=== PATIENT | male | born 1940 | race Caucasian/White ===

== ENCOUNTER 2023-02-11 09:22 | Outpatient (OUT) | payer MEDICARE, SELFPAY ==
[2023-02-11 09:55] LABS: Hematocrit 39.8 % (42.0-54.0); Hemoglobin 12.9 g/dL (14.0-18.0)
[2023-02-11 09:59] LABS: Protein Creatinine Ratio Urine 0.19; Total Protein Urine Random 9.1 mg/dL (<=11.9)
[2023-02-11 10:00] LABS: Bilirubin Urine NEGATIVE (NEGATIVE); Blood Urine NEGATIVE (NEGATIVE); Clarity Urine CLEAR (CLEAR); Color Urine YELLOW (YELLOW); Glucose Urine UA NEGATIVE (NEGATIVE); Ketones Urine NEGATIVE (NEGATIVE); Leukocyte Esterase Urine NEGATIVE (NEGATIVE); Nitrite Urine NEGATIVE (NEGATIVE); Protein Urine NEGATIVE (NEG/TRACE)
[2023-02-11 10:27] LABS: Alanine Aminotransferase 28 U/L (16-63); Albumin Globulin Ratio 1.2; Albumin Level 3.8 g/dL (3.4-5.0); Alkaline Phosphatase 85 U/L (46-116); Anion Gap 13.7; Aspartate Amino Transferase 21 U/L (15-37); BUN Creatinine Ratio 9.8; Bilirubin Total 0.8 mg/dL (0.2-1.0); Calcium 8.1 mg/dL (8.5-10.1); Carbon Dioxide 27.3 mmol/L (21.0-32.0); Chloride 102 mmol/L (98-107); Estimated GFR (African America 24 (>=60); Estimated GFR (Non-African Ame 20 (>=60); Globulin 3.1 g/dL; Glucose 84 mg/dL (74-106); Magnesium 2.1 mg/dL (1.8-2.4); Sodium 139 mmol/L (136-145); Total Protein 6.9 g/dL (6.4-8.2); Uric Acid 7.6 mg/dL (3.5-7.2)
[2023-02-11 10:40] LABS: Percent Iron Saturation 35.9 %
[2023-02-12 13:09] LABS: PTH, Intact 102 pg/mL (15-65)
== END 2023-02-11 09:23 | disposition home or self-care (01) ==
LOC: LAB 09:28
PROVIDERS: PCP Internal Medicine; Visit Provider Internal Medicine Nephrology
DX: E11.22 Type 2 diabetes mellitus with diabetic chronic kidney disease (principal); I13.0 Hypertensive heart and chronic kidney disease with heart failure and stage 1 through stage 4 chronic kidney disease, or unspecified chronic kidney disease; N18.9 Chronic kidney disease, unspecified; I50.9 Heart failure, unspecified; N18.4 Chronic kidney disease, stage 4 (severe); D63.1 Anemia in chronic kidney disease
CPT/HCPCS: 36415; 80053; 81003; 82306; 82570; 82607; 82728; 82746; 83540; 83550; 83735; 83970; 84156; 84550; 85014; 85018

== ENCOUNTER 2024-02-03 15:12 | Emergency (ER) | payer MEDICARE, SELFPAY ==
[2024-02-03] VITALS (21 sets, daily range): BP systolic 164–166; BP diastolic 64–68; PULSE 62–70; TEMP 36.8; O2SAT 85–97; BMI 27.2
--- NOTE | 2024-02-03 15:19 | XR_ITS ---
The [address] [address] Patient Name: Apolinar MELTON MRN: [id number] date: 1940 Sex: M Assigned Patient Location: ED.MAIN Current Patient Location: ED.MAIN Accession/Order Number: [id number] Exam Date: 02/03/2024 15:28 Report Date: 02/03/2024 16:05 At the request of: ZULEYMA CHAIDEZ Procedure: XR hip LT 2V w/ pelvis PROCEDURE: XR hip LT 2V w/ pelvis HISTORY: fall with hip pain and external rotation COMPARISON: None. FINDINGS: BONES:Acute fracture of left femoral neck likely at the base the neck, but obscured due to slight rotation of the femur causing the greater trochanter to overlie the base of the femoral neck. Femoral head remains seated within the acetabulum. Moderate degenerative changes of the hip joints bilaterally. SOFT TISSUES:No visible soft tissue swelling. EFFUSION:None visible. OTHER: Marked atherosclerotic disease. XR/XR hip LT 2V w/ pelvis IMPRESSION: 1. Acute, minimally displaced and slightly rotated base of femoral neck fracture. Electronically authenticated by: MAXWELL MORA Date: 02/03/2024 16:05
--- NOTE | 2024-02-03 15:30 | XR_ITS ---
The [address] [address] Patient Name: Apolinar MELTON MRN: [id number] date: 1940 Sex: M Assigned Patient Location: ER Current Patient Location: ED.MAIN Accession/Order Number: [id number] Exam Date: 02/03/2024 15:28 Report Date: 02/03/2024 16:05 At the request of: ALVINA AMEZQUITA Procedure: XR chest 1V EXAMINATION: XR chest 1V HISTORY: preop COMPARISON: No relevant comparison available. FINDINGS: LUNGS: No significant pulmonary parenchymal abnormalities. VASCULATURE: No increased pulmonary vasculature. PLEURA: No pneumothorax, effusion, or pleural thickening. CARDIAC: No cardiomegaly or cardiac silhouette abnormality. MEDIASTINUM: No visible mass or adenopathy. BONES: No fracture or visible bone lesion. OTHER: Negative. XR/XR chest 1V IMPRESSION: Electronically authenticated by: MAXWELL MORA Date: 02/03/2024 16:05
--- NOTE | 2024-02-03 15:31 | ECG_ITS ---
The [facility] Test Date: 2024-02-03 Pat Name: Apolinar MELTON Department: Room: - Gender: Male [employer]: : 1940 Requested By: HONEY MANCUSO Order Number: [id number] Reading MD: PEDRO HOBBS Measurements Intervals [place] Rate: 65 P: -21950 MA: -60396 QRS: 98 QRSD: 128 T: 67 QT: 470 QTc: 482 Interpretive Statements 24357 Atrial fibrillation with aberrant conduction, or ventricular premature complexes 3434 Septal myocardial infarction, age undetermined 7300 Indeterminate axis 9150 abnormal ECG No previous ECG available for comparison Electronically Signed On 02-04-2024 13:34:33 EDT by PEDRO HOBBS
--- NOTE | 2024-02-03 15:59 | ED.FALL1 ---
HPI HPI - Fall General Chief Complaint: Fall Stated Complaint: fell Time Seen by Provider: 02/03/24 15:17 Source: patient Mode of arrival: ambulance Limitations: no limitations History of Present Illness HPI Narrative: Your 84-year-old male presents to the emergency department via EMS with a chief complaint of left hip pain. Patient states he spun around too quickly, lost his balance, and fell, causing injury. He complains of pain, but only when he moves it. Denies hitting his head. Denies neck, back, chest abdominal pain. Denies upper extremity injury. Patient is on Plavix. History of coronary artery disease, peripheral vascular disease, chronic kidney disease. He has dialysis port, but has not started dialysis yet. He does have a pacemaker as well. Quality:?Blunt trauma Severity:?Severe Timing:?Injury occurred shortly prior to arrival, constant Context: Normal setting and activity? Modifying factors:?Pain worse with palpation, movement Associated symptoms: None Related Data Home Medications ?Medication ?Instructions ?Recorded ?Confirmed albuterol 90 mcg/actuation aerosol 90 mcg inhalation .Q4HR PRN 02/03/24 02/03/24 inhaler shortness of breath or wheezing amiodarone 200 mg tablet 200 mg PO DAILY 02/03/24 02/03/24 ascorbic acid (vitamin C) (Vitamin 1 g PO DAILY 02/03/24 02/03/24 C oral powder) aspirin 81 mg capsule 81 mg PO DAILY 02/03/24 02/03/24 atorvastatin 80 mg tablet 80 mg PO DAILY 02/03/24 02/03/24 cholecalciferol (vitamin D3) 25 25 mcg PO DAILY 02/03/24 02/03/24 mcg (1,000 unit) capsule clopidogrel 75 mg tablet 75 mg PO DAILY 02/03/24 02/03/24 furosemide 80 mg tablet (Lasix) 80 mg PO BID 02/03/24 02/03/24 glyburide 1.25 mg tablet 1.25 mg PO DAILY 02/03/24 02/03/24 levothyroxine 100 mcg tablet 100 mcg PO DAILY 02/03/24 02/03/24 metoprolol succinate 50 mg 50 mg PO DAILY 02/03/24 02/03/24 tablet,extended release 24 hr nitroglycerin 0.4 mg sublingual 0.4 mg sublingual Q5M 02/03/24 02/03/24 tablet omeprazole 40 mg capsule,delayed 40 mg PO DAILY 02/03/24 02/03/24 release Allergies Allergy/AdvReac Type Severity Reaction Status Date / Time Penicillins Allergy Intermediate Rash Verified 02/03/24 15:15 Opioid HPI Opioid Management Most Recent Pain and Opioid Data: Last Pain Scale 9 02/03/24 17:21 Last ED Pain Assessment 02/03/24 16:27 Last MAR Pain Assessment 02/03/24 17:21 Review of Systems ROS Constitutional Denies: fatigue or malaise Eyes Denies: change in vision or eye discomfort Ears, nose, mouth, and throat Denies: neck pain or vertigo Cardiovascular Denies: chest pain or palpitations Respiratory Denies: shortness of breath Gastrointestinal Denies: abdominal pain Musculoskeletal Reports: extremity pain, joint pain and limited range of motion; Denies: back pain or neck pain Integumentary/Breast Denies: other (wound) Neurological Denies: headache, weakness in extremities, dizziness, vertigo or confusion Endocrine Denies: fatigue Hematologic/Lymphatic Reports: other (Patient on plavix) PFSH PENDING SALE TO [facility] Medical History (Updated 02/03/24 @ 16:49 by KEDAR Mendes) History of cardiac pacemaker ?Z95.0 - Presence of cardiac pacemaker (ICD-10) Surgical History (Updated 02/03/24 @ 15:57 by Joseluis Savage) Hx of heart bypass surgery ?Z95.1 - Presence of aortocoronary bypass graft (ICD-10) Exam Constitutional Vital Signs, click to edit/add: Last Vital Signs Temp 98.2 F 02/03/24 15:15 Pulse 62 02/03/24 15:15 Resp 15 02/03/24 15:15 BP 164/64 H 02/03/24 15:15 Pulse Ox 96 02/03/24 15:15 O2 Del Method Room Air 02/03/24 15:15 Documenting provider has reviewed patient's vital signs: yes Common normals: no apparent distress and oriented x3 General appearance: cooperative and well developed; not ill appearing [facility] Common normals: normocephalic, head/scalp atraumatic, external ears normal and external nose normal Head and scalp: normocephalic and atraumatic Face and sinus: normal facial exam Nose: external nose normal External ear: external ears normal Mouth: no mouth trauma Throat: posterior oropharynx normal Eye Common normals: PERRL and conjunctivae normal General eye: normal appearance of both eyes Alignment: alignment normal Periorbital: periorbital findings normal Eyelid: eyelids normal Conjunctiva: conjunctiva(e) normal Pupil: PERRL Neck & C-Spine General: trachea midline; no tenderness Cervical spine: no cervical spine tenderness, no step off deformity and no paracervical muscle tenderness Chest Chest: symmetrical chest wall rise; inspection of the chest normal and no tenderness Respiratory Common normals: normal respiratory effort and clear to auscultation bilaterally Effort & inspection: able to speak in complete sentences and symmetric chest movement Auscultation: clear to auscultation bilaterally Cardio Common normals: regular rate and regular rhythm Rate: regular rate Rhythm: abnormal rhythm irregularly irregular Heart sounds: no murmurs Peripheral pulses: radial pulses present bilateral 2+ and dorsalis pedis pulses present bilateral 2+ GI Common normals: soft to palpation Inspection: normal to inspection; no abdominal distension Palpation: soft; non-tender Back & Pelvis Thoracic spine/upper back: normal to inspection; no thoracic spinal tenderness and no paraspinal muscle tenderness Lumbar spine/lower back: normal to inspection; no lumbar spinal tenderness and no paraspinal muscle tenderness Extremity General: normal exam except as noted Other: Left lower extremity: There is notable shortening and some mild rotation of the left leg. He has tenderness and pain with event in his hip. No tenderness noted throughout the remainder of the leg. Sensory intact. Neuro Common normals: oriented x3, moves all extremities, no focal motor deficits and no sensory deficits noted Speech: speech normal Psych Common normals: mental status grossly normal, thought process normal and cooperative Thought process: normal thought process Course Consultations Consultation #1: Patient was discussed with Dr. Burk at [facility]'s who is agreeable with being on consult Time: 15:56 Consultation #2: Patient discussed with Dr. Lee at [facility] who will accept the patient in transfer. Time: 16:49 Vital Signs Vital signs: Vital Signs Temperature 98.2 F 02/03/24 15:15 Pulse Rate 62 02/03/24 15:15 Respiratory Rate 15 02/03/24 15:15 Blood Pressure 164/64 H 02/03/24 15:15 Pulse Oximetry 96 02/03/24 15:15 Oxygen Delivery Method Room Air 02/03/24 15:15 Temperature 98.2 F 02/03/24 15:15 Pulse Rate 62 02/03/24 15:15 Respiratory Rate 15 02/03/24 15:15 Blood Pressure 164/64 H 02/03/24 15:15 Pulse Oximetry 96 02/03/24 15:15 Oxygen Delivery Method Room Air 02/03/24 15:15 MDM - Fall MDM Narrative Medical decision making narrative: This is a pleasant 84-year-old male presents the emergency department via EMS status post mechanical fall. States she has been around too quick, lost his balance, and fell. Complains of left hip pain only. Denies hitting his head. Denies any neck, chest, back, or abdominal pain. Denies any arm pain. He is on Plavix. History of coronary artery disease, peripheral vascular disease, renal disease. He has dialysis port, but has not started dialysis yet. On arrival, afebrile, no signs stable. On exam, nontoxic, well-appearing patient in no distress. He has notable shortening and malrotation of the left lower extremity with pain in the hip, especially with any movement. Pulses intact. Sensory intact. No other injury of the extremity noted. And had to evaluation no other visible, palpable trauma noted. X-ray imaging of his left hip shows left femoral neck fracture with mild displacement. Preop labs were ordered Ortho surgery not available at this facility, plan will be to transfer patient to higher level of care Favor left hip fracture Dislocation less likely based on imaging TBI, cervical fracture less likely based on history and physical exam Consulted hospitalist and orthopedics at [facility] Family was present at bedside to help in obtaining history EKG performed showing AV paced rhythm, PVCs, no other acute or concerning changes. Labs reveal no leukocytosis, anemia, thrombocytopenia, electrolyte imbalance. BUN 59, creatinine 3.79. Chronic history of renal disease. Glucose 92. PT, INR, APTT were 10.8, 1.2, 28.3, respectively. Disposition ? Plan: Patient will be transferred to [facility]. Condition at time of disposition: stable ? PLEASE NOTE: Portions of the medical record may have been produced using electronic party plan sales agent and may contain errors with respect to translation of words which may not have been identified prior to finalization of the chart. Medical Records Attestation: I reviewed the patient's medical records. Lab Data Attestation: I reviewed the patient's lab results. Labs: Lab Results 02/03/24 Range/Units 15:46 WBC 7.2 (4.0-11.0) 10^3/uL RBC 3.87 L (4.70-6.10) 10^6/uL Hgb 12.6 L (14.0-18.0) g/dL Hct 38.8 L (42.0-54.0) % MCV 100.3 H (80.0-94.0) fL MCH 32.6 (25.9-34.0) pg MCHC 32.5 (29.9-35.2) g/dL RDW 13.1 (11.0-15.0) % Plt Count 144 L (150-450) 10^3/uL MPV 11.6 (9.5-13.5) fL Neut % (Auto) 76.8 H (43.0-75.0) % Lymph % (Auto) 14.0 L (20.5-60.0) % [place] % (Auto) 7.1 (1.7-12.0) % Eos % (Auto) 1.5 (0.9-7.0) % Baso % (Auto) 0.3 (0.2-2.0) % Neut # (Auto) 5.6 (1.4-6.5) 10^3/uL Lymph # (Auto) 1.0 L (1.2-3.8) 10^3/uL [place] # (Auto) 0.5 (0.3-0.8) 10^3/uL Eos # (Auto) 0.1 (0.0-0.7) 10^3/uL Baso # (Auto) 0.0 (0.0-0.1) 10^3/uL Abs Immat Gran (auto) 0.02 (0.00-0.03) 10^3/uL Imm/Tot Granulo (auto) 0.3 (0.0-0.5) % PT 10.8 (9.0-11.6) sec INR 1.02 APTT 28.3 (22.3-36.2) sec Sodium 139 (136-145) mmol/L Potassium 4.7 (3.5-5.1) mmol/L Chloride 102 (98-107) mmol/L Carbon Dioxide 26.0 (21.0-32.0) mmol/L Anion Gap 15.7 BUN 59.0 H (7.0-18.0) mg/dL Creatinine 3.79 H (0.70-1.30) mg/dL Est GFR ( Amer) 19 L (>=60) Est GFR (Non-Af Amer) 15 L (>=60) BUN/Creatinine Ratio 15.6 Glucose 92 (74-106) mg/dL Calcium 8.6 (8.5-10.1) mg/dL Imaging Data left hip: Attestation: I have reviewed the pertinent imaging results. Radiologist's impression: ITS Impressions Hip/Pelvis X-Ray 02/03/24 15:19 IMPRESSION: 1. Acute, minimally displaced and slightly rotated base of femoral neck fracture. Electronically authenticated by: MAXWELL MORA Date: 02/03/2024 16:05 Chest X-Ray 02/03/24 15:30 IMPRESSION: Electronically authenticated by: MAXWELL MORA Date: 02/03/2024 16:05 ADDENDUM: 02/03/24 1616 IMPRESSION: 1. No appreciable acute cardiopulmonary process. Original Report EXAMINATION: XR chest 1V HISTORY: preop COMPARISON: No relevant comparison available. FINDINGS: LUNGS: No significant pulmonary parenchymal abnormalities. VASCULATURE: No increased pulmonary vasculature. PLEURA: No pneumothorax, effusion, or pleural thickening. CARDIAC: No cardiomegaly or cardiac silhouette abnormality. MEDIASTINUM: No visible mass or adenopathy. BONES: No fracture or visible bone lesion. OTHER: Negative. IMPRESSION: Electronically authenticated by: MAXWELL MORA Date: 02/03/2024 16:14 ECG Data Attestation: I personally reviewed and interpreted this ECG as follows: (AV paced rhythm at 65 bpm with unifocal PVCs. No STEMI, ischemia, or other acute abnormality noted.) ECG interpretation date: 02/03/24 ECG interpretation time: 15:52 Discharge Plan Discharge Chief Complaint: Fall Clinical Impression: Displaced fracture of left femoral neck Chronic renal disease Qualifiers: Chronic kidney disease stage: unspecified stage Qualified Code(s): N18.9 - Chronic kidney disease, unspecified Atrial fibrillation Qualifiers: Atrial fibrillation type: unspecified Qualified Code(s): I48.91 - Unspecified atrial fibrillation Patient Disposition: Xfer Acute Care Hospital Time of Disposition Decision: 16:48 Discharge Location: [facility] Condition: Good Mode of Transportation: EMS Discharge Date/Time: 02/03/24 19:21
[2024-02-03 16:03] LABS: Basophils Percent Auto 0.3 % (0.2-2.0); Eosinophils Absolute Auto 0.1 10^3/uL (0.0-0.7); Eosinophils Percent Auto 1.5 % (0.9-7.0); Hematocrit 38.8 % (42.0-54.0); Hemoglobin 12.6 g/dL (14.0-18.0); Immature Granulocytes Abs Auto 0.02 10^3/uL (0.00-0.03); Immature Granulocytes Pct Auto 0.3 % (0.0-0.5); Mean Corpuscular HGB Conc 32.5 g/dL (29.9-35.2); Mean Corpuscular Hemoglobin 32.6 pg (25.9-34.0); Mean Corpuscular Volume 100.3 fL (80.0-94.0); Mean Platelet Volume 11.6 fL (9.5-13.5); Monocytes Absolute Auto 0.5 10^3/uL (0.3-0.8); Monocytes Percent Auto 7.1 % (1.7-12.0); Neutrophils Absolute Auto 5.6 10^3/uL (1.4-6.5); Neutrophils Percent Auto 76.8 % (43.0-75.0); Platelet Count 144 10^3/uL (150-450); Red Blood Count 3.87 10^6/uL (4.70-6.10); Red Cell Distribution Width 13.1 % (11.0-15.0); White Blood Count 7.2 10^3/uL (4.0-11.0)
[2024-02-03 16:11] LABS: Anion Gap 15.7; BUN Creatinine Ratio 15.6; Calcium 8.6 mg/dL (8.5-10.1); Chloride 102 mmol/L (98-107); Estimated GFR (African America 19 (>=60); Estimated GFR (Non-African Ame 15 (>=60); Glucose 92 mg/dL (74-106); Potassium 4.7 mmol/L (3.5-5.1); Sodium 139 mmol/L (136-145)
[2024-02-03 16:36] LABS: INR 1.02; Partial Thromboplastin Time 28.3 sec (22.3-36.2); Prothrombin Time 10.8 sec (9.0-11.6)
[2024-02-03] MEDS: MORPHINE SULFATE 2 MG/ML SYRINGE IV (17:21)
[2024-02-03] MEDS: HYDROMORPHONE HCL 0.5 MG/0.5 ML SYRINGE IV (18:28)
== END 2024-02-03 19:21 | disposition short-term general hospital (02) ==
PROVIDERS: Physician Assistant; Emergency Provider Emergency Medicine; PCP Internal Medicine
DX: S72.042A Displaced fracture of base of neck of left femur, initial encounter for closed fracture (principal); I48.91 Unspecified atrial fibrillation; N18.9 Chronic kidney disease, unspecified; W19.XXXA Unspecified fall, initial encounter; Z79.02 Long term (current) use of antithrombotics/antiplatelets; I25.10 Atherosclerotic heart disease of native coronary artery without angina pectoris; I73.9 Peripheral vascular disease, unspecified; Z95.0 Presence of cardiac pacemaker
CPT/HCPCS: 36415; 51702; 71045; 73502; 80048; 85025; 85610; 85730; 93005; 96374; 96375; 99285; J1170; J2270

== ENCOUNTER 2024-07-21 13:14 | Outpatient (OUT) | payer MEDICARE, SELFPAY ==
[2024-07-21 13:57] LABS: Protein Creatinine Ratio Urine 0.21; Total Protein Urine Random 22.4 mg/dL (<=11.9)
[2024-07-21 14:00] LABS: Creatinine Urine Random 105.09 mg/dL (20.00-300.00); Microalbum Creatinine Ratio Ur 12.3 mg/g (0.0-29.9); Microalbumin Urine Random 1.3 mg/dL (<=30.0)
[2024-07-21 14:02] LABS: Albumin Level 3.6 g/dL (3.4-5.0); Anion Gap 14.9; BUN Creatinine Ratio 13.9; Calcium 8.7 mg/dL (8.5-10.1); Carbon Dioxide 28.1 mmol/L (21.0-32.0); Chloride 104 mmol/L (98-107); Estimated GFR (African America 22 (>=60 mL/min/1.73m^2); Estimated GFR (Non-African Ame 18 (>=60 mL/min/1.73m^2); Glucose 113 mg/dL (74-106); Phosphorus 4.3 mg/dL (2.6-4.7); Sodium 143 mmol/L (136-145); Uric Acid 9.7 mg/dL (3.5-7.2)
[2024-07-21 14:03] LABS: Hematocrit 40.7 % (42.0-54.0); Hemoglobin 13.1 g/dL (14.0-18.0); Mean Corpuscular HGB Conc 32.2 g/dL (29.9-35.2); Mean Corpuscular Hemoglobin 31.8 pg (25.9-34.0); Mean Corpuscular Volume 98.8 fL (80.0-94.0); Mean Platelet Volume 11.6 fL (9.5-13.5); Platelet Count 161 10^3/uL (150-450); Red Blood Count 4.12 10^6/uL (4.70-6.10)
[2024-07-21 14:32] LABS: Percent Iron Saturation 36.7 %
[2024-07-22 08:12] LABS: Vitamin B12 367 pg/mL (232-1245)
[2024-07-22 10:11] LABS: PTH, Intact 116 pg/mL (15-65)
== END 2024-07-21 13:15 | disposition home or self-care (01) ==
LOC: LAB 13:14
PROVIDERS: PCP Internal Medicine; Visit Provider Internal Medicine Nephrology
DX: E79.0 Hyperuricemia without signs of inflammatory arthritis and tophaceous disease (principal); E21.3 Hyperparathyroidism, unspecified; N18.9 Chronic kidney disease, unspecified; D63.1 Anemia in chronic kidney disease; E11.21 Type 2 diabetes mellitus with diabetic nephropathy; I12.9 Hypertensive chronic kidney disease with stage 1 through stage 4 chronic kidney disease, or unspecified chronic kidney disease
CPT/HCPCS: 36415; 80069; 82043; 82570; 82607; 82728; 82746; 83540; 83550; 83970; 84156; 84550; 85027

== ENCOUNTER 2024-12-29 08:10 | Outpatient (OUT) | payer MEDICARE, SELFPAY ==
--- OUTSIDE RECORDS SUMMARY | 2024-12-16 10:00 | XMS_ITS | Encounter Summary ---
Author Organization [facility] Address [address] [place] [address] Care Team Providers Care Cone Trucker Name Role Phone Justo Cameron MD Primary Care Provider [phone] Reason for Referral * Rehabilitation - Outpatient (Routine) - Closed Specialty Diagnoses / Procedures Referred By Cole t Referred To Contact Physical Therapy Diagnoses 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 Procedures IN OFFICE/OUTPATIENT NEW HIGH MDM 60 MINUTES Justo Cameron MD [address] [facility] [address] [place] [address] Phone: tel: fax: Davidson Conroy, PT [address] [facility] [address] [place] [address] Phone: tel: fax: Referral ID Status Reason Start Date Expiration Date V isits Requested Visits Authorized [id number] Closed Specialty Services Required 12/16/2024 06/14/2025 1 1 Reason for Visit * Reason Comments Medicare Annual Wellness Visit Subsequen t Encounter Details Date Type Department Care Team (Late st Contact Info) Description 12/16/2024 10:00 AM EDT Office Visit [facility] [address] [facility] [address] [place] [address] Justo Cameron MD [address] [facility] [address] [place] [address] Routine general medical examination at health care facility (Primary Dx); ACP (advance care planning); Type 2 diabetes mellitus with stage 4 chronic kidney disease, without long-term current use of insulin (HCC); Chronic kidney disease, stage 4 (severe) (HCC); Weight loss; 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; Mixed hyperlipidemia ; Acquired hypothyroidism ; Primary insomnia Social History Tobacco Use Types Packs/Day Years Used Date Smoking Tobacco: Former Cigarettes Q uit: 1983 Passive Smoke Exposure: Past Smokeless Tobacco: Never Alcohol Use Standard Drinks/Week Comments Yes 4 (1 standard drink = 0.6 oz pur e alcohol) caffeine: 3-4 cups per day PHQ-2 Answer Date Recorded Patient Health Questionnaire-2 Score 0 12/16/2024 Sex and Gender Information Value Date Recorded Sex Assigned at Not on file Legal Sex Male 7:17 PM EDT Gender Identity Not on file Sexual Orientation Not on file documented as of this encounter Last Filed Vital Signs Vital Sign Reading Time Taken Comments Blood Pressure 128/68 12/16/2024 10:05 AM EDT Pulse 60 12/16/2024 10:05 AM EDT Temperature - - Respiratory Rate - - Oxygen Saturation 98% 12/16/2024 10:05 AM EDT Inhaled Oxygen Concentration - - Weight 81.2 kg (179 lb) 12/16/2024 10:05 AM EDT Height 180.3 cm (5' 11 ) 12/16/2024 10:05 AM EDT Body Mass Index 24.97 12/16/2024 10:05 AM EDT documented in this encounter Functional Status * Over the past 2 weeks, how often have you been bothered by any of the following problems? Question Answer Date of Assessment Author Little interest or pleasure in doing things Not at all 12/16/2024 10:00 AM EDT Hien Cisneros L PN Feeling down, depressed, or hopeless Not at all 12/16/2024 10:00 AM EDT Hien Cisneros L PN Patient Health Questionnaire -2 Score 0 12/16/2024 10:00 AM EDT Hien Cisneros L PN documented as of this encounter Progress Notes * Justo Cameron MD - 12/16/2024 10:00 AM EDT Images from the original note were not included. Subjective : Chief Complaint: Apolinar Norman is an 84 y.o. male here for an annual wellness visit. I have reviewed and reconciled the history and medication list with the patient today. Current Outpatient Medications Medication Sig Dispense Refill amiodarone (Pacerone) 200 MG tablet Take 1 tablet by mouth in the morning. aspirin 81 MG EC tablet Take 81 mg by mouth in the morning. atorvastatin (Lipitor) 80 MG tablet Take 1 tablet (80 mg) by mouth Daily 100 tablet 3 clopidogrel (Plavix) 75 MG tablet TAKE 1 TABLET BY MOUTH DAILY 90 tablet 3 furosemide (Lasix) 40 MG tablet Take 40 mg by mouth in the morning and 40 mg before bedtime. glucose blood (True Metrix Blood Glucose Test) test strip 1 each by Other route Daily 100 each 3 glyBURIDE (Diabeta) 1.25 MG tablet TAKE 1 TABLET BY MOUTH IN THE MORNING WITH MEALS 90 tablet 3 Lancets Ultra Thin misc 1 each Daily 100 each 2 levothyroxine (Synthroid, Levoxyl) 100 MCG tablet TAKE 1 TABLET BY MOUTH IN THE MORNING TAKE BEFOREA MEAL 90 tablet 3 metoprolol succinate XL (Toprol-XL) 50 MG 24 hr tablet Take 50 mg by mouth Daily Do not crush or chew. omeprazole (PriLOSEC) [address] capsule Take one capsule daily 100 capsule 3 No current facility-administered medications for this visit. Review of Systems List of current healthcare providers: Patient Care Team: Justo Cameron MD as PCP - General (Internal Medicine) Medicare Annual Visit Over the past 2 weeks, how often have you been bothered by any of the following problems? Little interest or pleasure in doing things: Not at all Feeling down, depressed, or hopeless: Not at all Patient Health Questionnaire-2 Score: 0 Gan Fall Risk History of Falling, Immediate or Within 3 Months: No Secondary Diagnosis: No Ambulatory Aid: Crutches/cane/walker Health Risk Assessment Form Do you need help eating, bathing, using the toilet, dressing, or getting around your home?: No Can you prepare your own meals?: Yes Can you do your own housework without help?: No Can you shop for groceries or clothes without help?: No Do you exercise for about 20 minutes 3 or more days a week?: No How confident are you that you can control and manage most of your health problems?: Somewhat confident Can you mange your money, credit cards and accounts, pay bills and taxes?: Yes Cognitive Screening Three Word Registration: Apple, Watch, Anita Clock Drawing: Normal Clock - 2 Three Word Recall: 2/3 words correct - 2 Total Score (0-5 Points): 4 Pain Assessment Pain Score: 8 Advance Care Planning Do you have a living will?: No Do you have a medical power of communication engineer?: No Objective : BP 128/68 Pulse 60 Ht 5' 11 Wt 179 lb SpO2 98% BMI 24.97 kg/m?? No results found. Physical Exam Constitutional: General: He is not in acute distress. Appearance: He is normal weight. He is not ill-appearing. Comments: Chronically ill appearing HENT: Head: Normocephalic. Cardiovascular: Rate and Rhythm: Normal rate and regular rhythm. Heart sounds: Murmur heard. Pulmonary: Effort: Pulmonary effort is normal. Prolonged expiration present. Breath sounds: Decreased air movement present. Musculoskeletal: General: No swelling. Right lower leg: Edema present. Left lower leg: Edema present. Neurological: Mental Status: He is alert. Psychiatric: Mood and Affect: Mood normal. Assessment/Plan : The following health maintenance schedule was reviewed with the patient and provided in printed form in the after visit summary: Health Maintenance Topic Date Due Pneumococcal Vaccine: 65+ Years (1 of 2 - PCV) Never done Diabetes: Retinopathy Screening 07/24/2019 Diabetes: Hemoglobin A1C 06/23/2024 Medicare Annual Wellness (AWV) 08/21/2024 Influenza Vaccine (Season Ended) 2025 Diabetes: Urine Protein Screening 07/21/2025 Advance Care Planning Patient agreed to discuss advance care planning at today's wellness visit. We discussed that an advance directive is a legal document that only goes into effect if the patient is incapacitated and unable to speak for himself or herself. This would help healthcare providers to ensure that the patient gets the care that he or she wishes to receive. The goal is to provide a patient with the best possible quality of life. Encouraged patient to obtain a living will and durable power of communication engineer for healthcare. We discussed telling ibarra people about their advance directives such as close family members, and requested a copy to scan into the patient's EHR. An advance directive packet was offered to the patient. Assessment/Plan Diagnoses and all orders for this visit: Routine general medical examination at health care facility ACP (advance care planning) Type 2 diabetes mellitus with stage 4 chronic kidney disease, without long-term current use of insulin (CMS/HCC) - POCT Glycated hemoglobin, total - Comprehensive metabolic panel; Future - Lipid panel; Future - TSH; Future - T4, free; Future Chronic kidney disease, stage 4 (severe) (CMS/HCC) - Comprehensive metabolic panel; Future Weight loss 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 - XR lumbar spine 2 or 3 views; Future - Ambulatory referral to Physical Therapy; Future Mixed hyperlipidemia (CMS/HCC) - Lipid panel; Future Acquired hypothyroidism (CMS/HCC) - TSH; Future - T4, free; Future Primary insomnia - doxepin (Silenor) 3 MG tablet; Take 1 tablet (3 mg) by mouth at bedtime Follow up in about 3 weeks (around 01/06/2025) for Test/Lab Review, F/U med changes. No orders of the defined types were placed in this encounter. Electronically signed by Justo Cameron MD on December 16, 2024 documented in this encounter Plan of Treatment Upcoming Encounters Date Type Department Care Team (Late st Contact Info) Description 01/10/2025 9:30 AM EDT Office Visit [facility] [address] [facility] [address] [place] [phone] Justo Cameron MD [address] [facility] [address] [place] [address] 02/03/2025 11:40 AM EDT Office Visit [facility] [address] [place] [phone] Raffi West DPM [address] [facility] [address] [place] [address] 05/19/2025 10:45 AM EST Office Visit [facility] [address] [place] [address] Allison Foster MD [address] [place] [address] Scheduled Orders Name Type Priority Associated Diagnoses Orde r Schedule Comprehensive metabolic panel Lab Routine Type 2 diabetes mellitus with stage 4 chronic kidney disease, without long-term current use of insulin (HCC) Chronic kidney disease, stage 4 (severe) (HCC) Expected: 12/16/2024 (Approximate), Expires: 12/16/2025 Lipid panel Lab Routine Type 2 diabetes mellitus with stage 4 chronic kidney disease, without long-term current use of insulin (HCC) Mixed hyperlipidemia Expected: 12/16/2024 (Approximate), Expires: 12/16/2025 TSH Lab Routine Type 2 diabetes mellitus with stage 4 chronic kidney disease, without long-term current use of insulin (HCC) Acquired hypothyroidism Expected: 12/16/2024 (Approximate), Expires: 12/16/2025 T4, free Lab Routine Type 2 diabetes mellitus with stage 4 chronic kidney disease, without long-term current use of insulin (HCC) Acquired hypothyroidism Expected: 12/16/2024 (Approximate), Expires: 12/16/2025 XR lumbar spine 2 or 3 views Imaging Routine 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 Expected: 12/16/2024, Expires: 12/16/2025 Scheduled Referrals Name Type Priority Associated Diagnoses Orde r Schedule Ambulatory referral to Physical Therapy Outpatient Referral Routine 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 Expected: 12/16/2024 (Approximate), Expires: 06/17/2025 documented as of this encounter Procedures Procedure Name Priority Date/Time Associated Diagnosis Comments POCT GLYCATED HEMOGLOBIN, TOTAL Routine 12/16/2024 11:02 AM EDT Type 2 diabetes mellitus with stage 4 chronic kidney disease, without long-term current use of insulin (HCC) documented in this encounter Results * POCT Glycated hemoglobin, total (12/16/2024 11:02 AM EDT) Hemoglobin A1C 5.5 Blood 12/16/2024 11:0 2 AM EDT Justo Cameron MD POINT OF CARE TEST ENTER/EDIT ORDERABLES Final Result documented in this encounter Visit Diagnoses Diagnosis Routine general medical examination at health care facility- Primary Routine general medical examination at a health care facility ACP (advance care planning) Other specified counseling Type 2 diabetes mellitus with stage 4 chronic kidney disease, without long-term current use of insulin (HCC) Chronic kidney disease, stage 4 (severe) (HCC) Weight loss Loss of weight 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 Mixed hyperlipidemia Mixed hyperlipidemia Acquired hypothyroidism Unspecified hypothyroidism Primary insomnia Persistent disorder of initiating or maintaining sleep documented in this encounter Care Teams Cone Trucker Relationship Specialty Start Date End Date Justo Cameron MD [address] [place] [address] PCP - General Internal Medicine 01/02/23 documented as of this encounter
--- OUTSIDE RECORDS SUMMARY | 2024-12-16 12:20 | XMS_ITS | Encounter Summary ---
Author Name [facility] [place] [facility] [place] [facility] [facility] [place] Address [address] [place] [address] Care Team Providers Care Mechanical Detailer Name Role Phone JOSH PERDUE Primary Care Provider Unavailabl e Insurance Providers: All historical and current Section Date Range: From patient's date of to the date document was created. This section includes the names of all active insurance providers for the patient. Insurance Provider Type of Coverage Plan Name Start of Policy Coverage End of Policy Coverage Group Number Member ID Insurance Provider's Telephone Number Policy Martinez's Name Patient's Relationship to Policy Martinez [facility] (WNR) MEDICARE ADVANTAGE [facility] (WNR) Jul 14, 2022 [id number] Apolinar MELTON PATIENT Selected Encounter This section includes the information on record at [place] for the Encounter. Date/Time Encounter Type Encounter Description Reason Provider Source Dec 16, 2024 04:20 PM CASE MANAGEMENT TELEPHONE PRIMARY CARE ICD-10-CM Z74.1 Need for assistance with personal care HEATHER FOSS Encounter Template Text not used by [place] Assessments - Encounter Diagnoses This section includes the primary and secondary diagnoses documented for the Encounter. Date/Time Primary/Secondary Diagnosis Diagnosis Name Provider Source Dec 16, 2024 04:20 PM PRIMARY Need for assistance with personal care HEATHER FOSS RUTHIE Plan of Treatment: Future Appointments (+ 6 months) and Future Tests (+/- 45 days) The Plan of Treatment section includes future care activities for the patient from all [place] treatmentfacilities. This section includes future appointments and future orders which are active, pending or scheduled. Future Appointments This section includes appointments that were scheduled to occur 6 months from the date of the Encounter, up to a maximum of 20 appointments. The data comes from all [place] treatment facilities. Appointment Date/Time Appointment Type Appointme nt Facility Name Mar 23, 2025 01:00 PM AMBULATORY - NONE MARTINEZ Coleman [facility] Social History: Smoking Status (Most current) and Tobacco Use (All prior to encounter date) This section includes the most current, and the historical, smoking and tobacco- related health factors from the [place] facility where the Encounter took place. Current Smoking Status This section includes the most current smoking, or tobacco-related health factor, from the [place] facility where the Encounter took place. Date/Time Current Smoking Status Comment Facil ity Mar 19, 2024 02:00 PM VA-TOBACCO FORMER USER [facility] Tobacco Use History This section includes a history of the smoking, or tobacco-related health factors, that were collected on or before the date of the Encounter. The data comes from the [place] facility where the Encounter took place. Date/Time Smoking Status/Tobacco Use Comment F acility Mar 19, 2024 02:00 PM VA-TOBACCO QUIT 15 YRS OR MORE [facility] Advance Directives: All historical and current Section Date Range: From patient's date of to the date document was created. This section includes ALL of a patient's completed or amended [place] Advance and Rescinded Directives. The entries below indicate that a directive exists for the patient, but an actual copy is not included with this document. The data comes from all [place] facilities. Date Advance Directives Provider Source Mar 19, 2024 ADVANCE DIRECTIVE DISCUSSION ARPIT FOSS [facility] Encounter Notes: All associated encounter notes This section contains the clinical notes associated to the Encounter. Date/Time Encounter Note(s) Provider Source Dec 16, 2024 04:20 PM SOCIAL WORK NOTE: LOCAL TITLE: SOCIAL WORK TRIAGE ASSESSMENT STANDARD TITLE: SOCIAL WORK NOTE DATE OF NOTE: DEC 16, 2024@16:20 ENTRY DATE: DEC 16, 2024@16:20:56 AUTHOR: HEATHER FOSS EXP COSIGNER: URGENCY: STATUS: COMPLETED SOCIAL WORK TRIAGE ASSESSMENT Referral source: Family Presenting issues: Need for in-home support services SLOT OPERATIONS MANAGER Brief summary: Phone call returned to Teaneck's daughter, Summer [phone]. Teaneck is an 84 year-old NSC male. Teaneck has diagnosis of hyperlipidemia, atherosclerosis of aorta, HTN, carotid artery stenosis, AF, CHF, CKD and others. Daughter updated as to noted Teaneck decline. saw civilian provider today and lost 12 pounds. Teaneck has been having dizzy spells, increased weakness and cannot move on his own. has been using a wheelchair everywhere he goes. Daughter is asking if a motorized scooter would be available. SW reviewed process to request the scooter. Daughter shared concerns with SLOT OPERATIONS MANAGER informed she is a student and works on her homework or sleeps on the shift. Teaneck fell while taking out the trash that aide did not take on her way out. Daughter has requested aide to make a sandwich for before she leaves as he cannot stand long enough to fix his food. Aide has replied that she, does not cook. Family has talked to aide and left notes, but nothing has changed. BOOGIE informed a new aide or agency can be requested. Teaneck likes this aide and does not want to change, but family feel Teaneck needs more help than aide is providing. SW offered to discuss concerns with agency; daughter is agreeable. SW requested daughter keep this clinic updated if services do not improve. Daughter informed civilian provider has ordered in-home therapy with the hopes to increase strength and mobility. Daughter has questions about [facility] if continues to decline. SW provided education on [facility] admission process. SW provided website to obtain application and provided [facility] contacts. SW processed Te[place]ck can remain on the wait list if not ready for admission. Daughter voiced appreciation for the information and assistance. SW requested daughter keep this clinic updated as to 's condition and SLOT OPERATIONS MANAGER services. SW encouraged daughter to call with any additional questions or needs. Is case management recommended? No Social Work Interventions and Plan: SW gathered update from daughter regarding noted decline in 's condition. SW also gathered update regarding SLOT OPERATIONS MANAGER services; SW will discuss concerns with SLOT OPERATIONS MANAGER agency. SW provided education on [facility] and the admission process. SW encouraged daughter to keep this clinic updated as to 's condition and any additional needs. BOOGIE is including PCP and PACT RN for informational purposes. 18 minutes /es/ JU MOMIN CLINICAL PARTY PLAN SALES AGENT Signed: 12/17/2024 09:10 Receipt Acknowledged By: 12/17/2024 09:22 /es/ ELEAZAR STOVALL REGISTERED NURSE 12/17/2024 09:44 /es/ JOSH PERDUE NURSE PRACTITIONER 12/17/2024 12:08 /es/ SHAHBAZ CAMPBELL PARTY PLAN SALES AGENT HEATHER FOSS OC
--- OUTSIDE RECORDS SUMMARY | 2024-12-17 05:18 | XMS_ITS | Encounter Summary ---
Author Name [facility] [place] [facility] [place] [facility] [place] Address [address] [place] [address] Care Team Providers Care Cryolite Recovery Operator Name Role Phone JOSH PERDUE Primary Care [...] Martinez's Name Patient's Relationship to Policy Martinez [facility] ([facility]) MEDICARE ADVANTAGE [facility] ([facility]) Jul 14, 2022 [id number] Apolinar MELTON PATIENT Selected Encounter This section includes the information on record at [place] for the Encounter. Date/Time Encounter Type Encounter Description Reason Provider Source Dec 17, 2024 09:18 AM Outpatient Encounter ADMIN PAT ACTIVTIES (MASNONCT) ICD-10-CM Y93.9 Activity, unspecified HEATHER FOSS Encounter Template Text not used by [place] Assessments - Encounter Diagnoses This section includes the primary and secondary diagnoses documented for the Encounter. Date/Time Primary/Secondary Diagnosis Diagnosis Name Provider Source Dec 17, 2024 09:20 AM PRIMARY Activity, unspecified HEATHER FOSS [facility] Plan of Treatment: Future Appointments (+ 6 months) and Future Tests (+/- 45 days) The Plan of Treatment section includes future care activities for the patient from all [place] treatmentfacilities. This section includes future appointments and future orders which are active, pending or scheduled. Future Appointments This section includes appointments that were scheduled to occur 6 months from the date of the Encounter, up to a maximum of 20 appointments. The data comes from all [place] treatment facilities. Appointment Date/Time Appointment Type Appointme nt Facility Name Mar 23, 2025 01:00 PM AMBULATORY - NONE MARTINEZ Coleman [facility] Social History: Smoking Status (Most current) and Tobacco Use (All prior to encounter date) This section includes the most current, and the historical, smoking and tobacco- related health factors from the [place] facility where the Encounter took place. Current Smoking Status This section includes the most current smoking, or tobacco-related health factor, from the [place] facility where the Encounter took place. Date/Time Current Smoking Status Comment Facil ity Mar 19, 2024 02:00 PM VA-TOBACCO FORMER USER [facility] Tobacco Use History This section includes a history of the smoking, or tobacco-related health factors, that were collected on or before the date of the Encounter. The data comes from the [place] facility where the Encounter took place. Date/Time Smoking Status/Tobacco Use Comment F acility Mar 19, 2024 02:00 PM VA-TOBACCO QUIT 15 YRS OR MORE [facility] Advance Directives: All historical and current Section Date Range: From patient's date of to the date document was created. This section includes ALL of a patient's completed or amended [place] Advance and Rescinded Directives. The entries below indicate that a directive exists for the patient, but an actual copy is not included with this document. The data comes from all [place] facilities. Date Advance Directives Provider Source Mar 19, 2024 ADVANCE DIRECTIVE DISCUSSION ARPIT FOSS [facility] Encounter Notes: All associated encounter notes This section contains the clinical notes associated to the Encounter. Date/Time Encounter Note(s) Provider Source Dec 17, 2024 09:18 AM SOCIAL WORK NOTE: LOCAL TITLE: SOCIAL WORK PROGRESS NOTE STANDARD TITLE: SOCIAL WORK NOTE DATE OF NOTE: DEC 17, 2024@09:18 ENTRY DATE: DEC 17, 2024@09:18:44 AUTHOR: HEATHER FOSS EXP COSIGNER: URGENCY: STATUS: COMPLETED Phone call to [facility] [employer] [facility] [phone]; no answer. Message left requesting a return call. Phone call from [facility]ando [facility]. SW updated as to family concerns with current aide. SW processed Quinlan would like to keep this aide, however, family has concerns with the care being provided. SW provided examples of aide reportedly completing homework and sleeping while on duty. SW reviewed GEOPOLITICS TEACHER services and requested aide provide additional hands on care. Armando will discuss with aide and complete corrective action plan. Armando will identify new aide is necessary. BOOGIE is including community SW for informational purposes. 20 minutes /phil/ JU MOMIN CLINICAL HEAD WORKER Signed: 12/17/2024 11:19 Receipt Acknowledged By: 12/17/2024 12:08 /phil/ SHAHBAZ CAMPBELL HEAD WORKER HEATHER FOSS [facility]
--- OUTSIDE RECORDS SUMMARY | 2024-12-29 03:14 | XMS_ITS | Continuity of Care Document ---
Author Name [facility] Organization [facility] Care Team Providers Care Instrument Sterilizer Name Role Phone [facility] Unavailable Unavailable Problems Combined list of problems from [facility] and [facility] facilities. It does not include entries that were removed or entered in error. Problem Status Onset Date Problem Type Date of Resolution Comments Source Atherosclerosis of aorta Active Condition [facility] Atrial fibrillation Active Condition [facility] Benign Prostatic Hypertrophy without Outflow Obstruction ([facility] [id number]) Active Condition [facility] Cardiac pacemaker in situ Active Condition [facility] Carotid artery stenosis Active Condition [facility] CHF - Congestive Heart Failure ([facility] [id number]) Active Condition [facility] Chronic kidney disease stage 4 Active Condition [facility] COPD - Chronic Obstructive Pulmonary Disease ([facility] [id number]) Active Condition [facility] Degeneration of intervertebral disc Active Condition [facility] GERD - Gastro-Esophageal Reflux Disease ([facility] [id number]) Active Condition [facility] Hiatal hernia Active Condition [facility] Hip fracture Active Condition [facility] History of coronary artery bypass grafting Active Condition [facility] HTN - Hypertension ([facility] [id number]) Active Condition [facility] Hyperlipidemia ([facility] [id number]) Active Condition [facility] Localized osteoarthrosis Active Condition [facility] Diagnosis: ICD-10-CM Y93.9 Activity, unspecified Active Diagnosis [facility] Diagnosis: ICD-10-CM Z74.1 Need for assistance with personal care Active Diagnosis [facility] Diagnosis: ICD-10-CM Z71.9 Counseling, unspecified Active Diagnosis [facility] Diagnosis: ICD-10-CM M97.02XS Periprosth fracture around internal prosth l hip jt, sequela Active Diagnosis [facility] Medications Combined list of outpatient medications from Department [facility] and [facility] Affairs facilities.Medications provided include 1) outpatient medications from the last 15 months, and 2) patient-reported medications. Medication Details Route Status Patient Instructions Prescription Expires Prescription Number Last Dispense Date Ordering Provider Order Date Order Qty Source AMIODARONE HCL (PACERONE) 200MG TAB TAKE ONE TABLET BY MOUTH EVERY DAY ORAL ACTIVE NETTE,RE JORY A 2023 [facility] ASPIRIN 81MG TAB,EC TAKE ONE TABLET BY MOUTH EVERY DAY ORAL ACTIVE NETTE,RE JORY A 2023 [facility] ATORVASTATI N CA 80MG TAB TAKE ONE TABLET BY MOUTH EVERY DAY ORAL ACTIVE NETTE,RE JORY A 2023 [facility] CLOPIDOGREL BISULFATE 75MG TAB TAKE ONE TABLET BY MOUTH EVERY DAY ORAL ACTIVE NETTE,RE JORY A 2023 [facility] FUROSEMIDE 40MG TAB TAKE TWO TABLETS BY MOUTH IN THE MORNING AND TAKE ONE TABLET BY MOUTH AT NOON AND TAKE ONE TABLET BY MOUTH AT BEDTIME ORAL ACTIVE NETTE,RE JORY A 2023 [facility] GLYBURIDE 1.25MG TAB TAKE ONE TABLET BY MOUTH TWICE A DAY BEFORE MEALS ORAL ACTIVE NETTE,RE JORY A 2023 [facility] LEVOTHYROXI NE NA 100MCG TAB (SYNTHROID) TAKE ONE TABLET BY MOUTH EVERY MORNING, ON AN EMPTY STOMACH ORAL ACTIVE NETTE,RE JORY A 2023 [facility] METOPROLOL SUCCINATE 50MG TAB,SA TAKE ONE TABLET BY MOUTH EVERY DAY ORAL ACTIVE NETTE,RE JORY A 2023 [facility] Allergies, Adverse Reactions, Alerts Combined list of allergies from Department of Defense and Veterans Affairs facilities. It does not include entries that were removed or entered in error. Substance Category Reaction Severity Reaction type Status Date Reported Comments Source PENICILLIN Propensity to adverse reactions to drug (finding) Swelling active [facility] Immunizations Combined list of available immunizations from the Department of Defense and Veterans Affairs facilities. Immunization Series Date Given Administered By Site Reaction Lot Number CVX Code Drug Top Stitcher Status Comments Source COVID-19 (MODERNA), MRNA, LNP-S, PF, 100 MCG/0.5ML DOSE OR 50 MCG/0.25ML DOSE 3 2020 207 complet ed HISTORICA L INFORMATI ON - FROM OTHER REGISTRY, [facility] COVID-19 (MODERNA), MRNA, LNP-S, PF, 100 MCG/0.5ML DOSE OR 50 MCG/0.25ML DOSE 2 2020 207 complet ed HISTORICA L INFORMATI ON - FROM OTHER REGISTRY, [facility] COVID-19 (MODERNA), MRNA, LNP-S, PF, 100 MCG/0.5ML DOSE OR 50 MCG/0.25ML DOSE 1 2020 207 complet ed HISTORICA L INFORMATI ON - FROM OTHER REGISTRY, [facility] Vital Signs Combined list of inpatient and outpatient Vital Signs from Department of [facility] and [facility], ranging from 12 months to all on record, depending upon the facility. Vital Sign Value Date Comments Source SYSTOLIC BLOOD PRESSURE 138 03/19/2024 14:05:01 [facility] DIASTOLIC BLOOD PRESSURE 54 03/19/2024 14:05:01 [facility] PULSE OXIMETRY 97 03/19/2024 14:05:[address] [facility] WEIGHT 196 03/19/2024 14:05:01 [facility] BMI 28 kg/m2 03/19/2024 14:05:01 [facility] HEIGHT 70.5 03/19/2024 14:05:01 [facility] TEMPERATURE 97.6 03/19/2024 14:05:01 [facility] PULSE 61 03/19/2024 14:05:01 [facility] RESPIRATION 16 03/19/2024 14:05:01 [facility] Encounters Combined list of: 1) Encounters from Department of Veterans Affairs facilities going backup to the last 18 months, not all [place] inpatient encounters are included; 2) Encounters from the Department of [facility] facilities going backup to 280 months. Location Location Details Encounter Type Encounter Number Reason For Visit Attending Provider ADM Date DC Date Status Disposition Source [facility] Outpatient Encounter [id number] 03/11 [facility] [place] [place] Outpatient Encounter [id number] 03/19 [facility] BOB CB OFFICE O/P [place] 60 MIN [id number] Diagnos is: ICD-10- CM M97.02X S Peripro sth fractur e around interna l prosth l hip jt, [place] PERDUE,THEODORE ECCA A 03/19 [facility] CASE MANAGEMENT [id number] Diagnos is: ICD-10- CM Z71.9 Finish Filer ing, unspeci fied ROLL,MARJO LAURITA K 03/19 [facility] ASSLA&MGMT NQHP 11-20 [id number] Diagnos is: ICD-10- CM Z71.9 Finish Filer ing, unspeci fied ROLL,MARJO LAURITA K 07/21 [facility] Outpatient Encounter [id number] Diagnos is: ICD-10- CM Y93.9 Activit y, unspeci fied ROLL,MARJO LAURITA K 08/23 [facility] BOB [place] [address] ASSLA&MGMT NQHP 5-10 [id number] Diagnos is: ICD-10- CM Z71.9 Finish Filer ing, unspeci fied ROLL,MARJO LAURITA K 08/23 [facility] Outpatient Encounter [id number] ROLL,MARJO LAURITA K 08[facility] [facility] [address] ASSLA&MGMT NQHP 21-30 [id number] Diagnos is: ICD-10- CM Z71.9 Finish Filer ing, unspeci fied ROLL,MARJO LAURITA K 08/24 [facility] Outpatient Encounter [id number] Diagnos is: ICD-10- CM Y93.9 Activit y, unspeci fied ROLL,MARJO LAURITA K 08/24 [facility] Outpatient Encounter [id number] 09/02 [facility] CASE MANAGEMENT [id number] Diagnos is: ICD-10- CM Z74.1 Need for assista nce with persona l care ROLL,MARJO LAURITA K 12/16 [facility] Outpatient Encounter [id number] [id number] Diagnos is: ICD-10- CM Y93.9 Activit y, unspeci fied SHIVAM FOSS 12/17 [facility] Social History Combined list of available smoking, tobacco, and other social history from Department of Defense and Veterans Affairs facilities. Social History Type Response Date Comment Sourc e Tobacco smoking status NHIS VA-TOBACCO FORMER USER 03/19/2024 [facility] History of tobacco use VA-TOBACCO QUIT 1 5 YRS OR MORE 03/19/2024 [facility] Plan of Care List of future care activities from Department of Veterans Affairs facilities. Additional future care activities may be listed in the Assessment and Plan section. Date/Time Care Activity Care Activity Detail Facili ty 03/23/2025 AMBULATORY - NONE AMBULATORY - NONE [facility] Advance Directives List of completed, amended, or rescinded Advance Directives on record at Department of Veterans Affairs facilities. An actual copy of the Directive is not included. Date Advance Directive Provider Source 03/19/2024 ADVANCE DIRECTIVE DISCUSSION TYRESE FOSSMYNOR ROJAS [facility]
--- OUTSIDE RECORDS SUMMARY | 2024-12-29 08:16 | XMS_ITS | Referral Summary ---
Author Organization [facility] Address [address] [place] [address] Care Team Providers Care Accordion Repairer Name Role Phone Justo Cameron MD Primary Care Provider [phone] Allergies Active Allergy Reactions Criticality Noted Date Comments Penicillins Rash Low 07/01/2014 Medications ascorbic acid (Vitamin C) 1,000 mg tablet Take 1 tablet every day by oral route. Active aspirin 81 mg EC tablet Take 1 tablet every day by oral route. Active atorvastatin (Lipitor) 80 mg tablet Take 80 mg by mouth at bedtime. Active clopidogrel (Plavix) 75 mg tablet Take 1 tablet every day by oral route. Active glyBURIDE (Diabeta) 1.25 mg tablet Take 1 tablet every day by oral route. Active levothyroxine (Synthroid, Levoxyl) 100 mcg tablet Take 1 tablet every day by oral route. Active metoprolol succinate XL (Toprol-XL) 25 mg 24 hr tablet Take 1 tablet every day by oral route. Active albuterol 90 mcg/actuation inhaler Inhale 2 puffs every 6 (six) hours if needed for wheezing. Active isosorbide dinitrate (Isordil) 30 mg tablet Take 30 mg by mouth in the morning. Active amiodarone (Pacerone) 200 mg tablet Take 200 mg by mouth at bedtime. Active dicyclomine (Bentyl) 20 mg tablet Take 20 mg by mouth in the morning and at bedtime. Active furosemide (Lasix) 40 mg tablet Take 40 mg by mouth in the morning. Active omeprazole (PriLOSEC) [address] capsule Take 40 mg by mouth at bedtime. Do not crush or chew. Active Active Problems Problem Noted Date Diagnosed Date Olecranon bursitis of left elbow 08/08/2022 Overview (08/08/2022): Added automatically from request for surgery [id number] Social History Tobacco Use Types Packs/Day Years Used Date Smoking Tobacco: Former Cigarettes Smokeless Tobacco: Never Tobacco Cessation:Counseling Given: Not Answered Alcohol Use Standard Drinks/Week Comments Not Currently 0 (1 standard drink = 0.6 oz pur e alcohol) Overall Financial Resource Strain (CARDIA) Answe r Date Recorded How hard is it for you to pa y for the very basics like food, housing, medical care, and heating? Not very hard 08/08/2022 PHQ-2 Answer Date Recorded Patient Health Questionnaire-2 Score 0 08/08/2022 [facility] [place] [facility] - Occupational Stress Questionnaire Answer Date Recorded Do you feel stress - tense, restless, nervous, or anxious, or unable to sleep at night because your mind is troubled all the time - these days? Not at all 08/08/2022 PRAPARE - Transportation Answer Date Re corded In the past 12 months, has l ack of transportation kept you from medical appointments or from getting medications? No 07/15 In the past 12 months, has l ack of transportation kept you from meetings, work, or from getting things needed for daily living? No 08/08/2022 [place] Safety & Environment Answer Date Rec orded Fear of Current or Ex-Partner Not on file Emotionally Abused Not on file 09/04/2023 Physically Abused Not on file 09/04/2023 Sexually Abused Not on file 09/04/2023 Physically or Sexually Abused Not on file Sex and Gender Information Value Date Recorded Sex Assigned at Not on file Legal Sex Male 10:18 PM EDT Gender Identity Not on file Sexual Orientation Not on file Last Filed Vital Signs Vital Sign Reading Time Taken Comments Blood Pressure 146/77 08/26/2022 2:50 PM EST Pulse 59 08/26/2022 2:50 PM EST Temperature 36.3 C (97.3 F) 08/26/2022 2:50 PM EST Respiratory Rate 17 08/26/2022 2:50 PM EST Oxygen Saturation 95% 08/26/2022 2:50 PM EST Inhaled Oxygen Concentration - - Weight 89.4 kg (197 lb) 09/04/2022 11:13 AM EST Height 180.3 cm (5' 11 ) 09/04/2022 11:13 AM EST Body Mass Index 27.48 09/04/2022 11:13 AM EST Plan of Treatment Not on file Medical Devices Implanted Type Area Director Of Compliance Device Identifier Shelf Expiration Date Model / Serial / Lot Pacemaker Pacemaker Left: Chest Insurance [employer] MEDICARE Care Teams Accordion Repairer Relationship Specialty Start Date End Date Justo Cameron MD [address] [place] [address] PCP - General 08/14/22
--- OUTSIDE RECORDS SUMMARY | 2024-12-29 08:16 | XMS_ITS | Clinical Summary ---
Author Organization [facility] Address [address] [place] [address] Phone Care Team Providers Care Head Insulation Board Saw Operator Name Role Phone Justo Cameron MD Primary Care Provider [phone] Hussein Talavera MD Unavailable Unavail able Allergies Active Allergy Reactions Criticality Noted Date Comments Karsten Inhibitors Other 05/30/2023 Levofloxacin Rash Low 05/30/2023 Penicillins Rash,Swelling Low 05/30/2023 Medications ascorbic acid (Vitamin C) 1,000 mg tablet Take 1 tablet (1,000 mg) by mouth once daily. Active aspirin 81 mg EC tablet Take 1 tablet (81 mg) by mouth once daily. Active atorvastatin (Lipitor) 80 mg tablet Take 1 tablet (80 mg) by mouth once daily. Active clopidogrel (Plavix) 75 mg tablet Take 1 tablet (75 mg) by mouth once daily. Active glyBURIDE (Diabeta) 1.25 mg tablet Take 1 tablet (1.25 mg) by mouth once daily. Active levothyroxine (Synthroid, Levoxyl) 100 mcg tablet Take 1 tablet (100 mcg) by mouth once daily. Active omeprazole (PriLOSEC) [address] capsule Take 1 capsule (40 mg) by mouth once daily. Active nitroglycerin (Nitrostat) 0.[address] under the tongue. Active cholecalciferol (Vitamin D3) 25 MCG (1000 UT) tablet Take 1 tablet (1,000 Units) by mouth once daily. Active furosemide (Lasix) 40 mg tablet Take 1 tablet (40 mg) by mouth 3 times daily (morning, midday, late afternoon). Active amiodarone (Pacerone) 200 mg tabletIndications :Arrhythmia, ventricular TAKE 1 TABLET BY MOUTH DAILY 90 tablet 1 4 Active metoprolol succinate XL (Toprol-XL) 50 mg 24 hr tabletIndications :History of PTCA,Benign essential hypertension Take 1 tablet (50 mg) by mouth once daily. 90 tablet 3 5 07/27/19 26 Active Active Problems Problem Noted Date Diagnosed Date BMI 26.0-26.9,adult 04/22/2024 Former smoker 04/22/2024 High risk medication use 10/06/2023 Assessment & Plan (10/06/2023 9:48 AM EDT): Amiodarone start date October 2021 due to PVC Testing: August 2023 ECG in office a-paced; trigeminy Qtc 520 Orthostatic hypotension 10/06/2023 Assessment & Plan (10/06/2023 9:53 AM EDT): Called into office September 2023 with complaints of low BP - imdur d/c'd and lopressor reduced with improvement in complaints Had 16mmHg drop supine to standing in office today - asymptomatic Arrhythmia, ventricular 05/30/2023 Assessment & Plan (10/06/2023 9:49 AM EDT): PVC identified October [address] Murdock ? Ischemic driven Essential hypertension 05/30/2023 CAD (coronary artery disease) 05/30/2023 Assessment & Plan (10/06/2023 9:55 AM EDT): Apr 26, 2021 Cath: Left main occluded pRCA 80-90% SVG - CX/Sera with 80% graft ISR MAYA - LAD patent No intervention due to CKD Current daily activity < 4 METs No angina off imdur No ntg use Cardiac pacemaker in situ 05/30/2023 Assessment & Plan (10/06/2023 9:50 AM EDT): BS Accolade dual chamber PPM January 2023: device interrogation Has remote transmission Chest pain 05/30/2023 DM (diabetes mellitus) (Multi) 05/30/2023 Assessment & Plan (10/06/2023 9:53 AM EDT): On statin No KARSTEN/ARB due to CKD Unknown HgA1c Echocardiogram abnormal 05/30/2023 Assessment & Plan (10/06/2023 9:51 AM EDT): Feb 2022 LVEF 55% LA moderate dilated MR mild/moderate RVSP 5 mmHg History of PTCA 05/30/2023 Sinus bradycardia 05/30/2023 PVD (peripheral vascular disease) 05/30/2023 Hyperlipidemia 05/30/2023 Assessment & Plan (10/06/2023 9:51 AM EDT): Tolerating high intensity statin Unclear if he will get annual wellness labs S/P CABG (coronary artery bypass graft) 05/30/20 Stage 4 chronic kidney disease (Multi) Assessment & Plan (10/06/2023 9:54 AM EDT): Had AVF placed last week Will start HD in next coming months Resolved Problems Problem Noted Date Diagnosed Date Resolved Date BMI 36.0-36.9,adult 10/06/2023 04/22/20 Assessment & Plan (10/06/2023 9:54 AM EDT): Reviewed the merits of healthy lifestyle choices on overall cardiovascular health. Carotid stenosis 05/30/2023 04/22/2024 Renal insufficiency 05/30/2023 04/22/20 24 Encounters Date Type Department Care Team Description 10/20/[address] [facility] [address] [place] [address] Scanning, Generic Provider 10/20/2024 Orders Only [facility] [address] [place] [address] Tawanda Pro DO from Last 3 Months Immunizations Immunization Administration Dates Next Due Moderna SARS-CoV-2 Vaccination 11/30/2020,2020 Social History Tobacco Use Types Packs/Day Years Used Date Smoking Tobacco: Former Cigarettes Q uit: 1982 Smokeless Tobacco: Never Alcohol Use Standard Drinks/Week Comments Never 0 (1 standard drink = 0.6 oz pur e alcohol) Sex and Gender Information Value Date Recorded Sex Assigned at Not on file Legal Sex Male 1:58 PM EST Gender Identity Not on file Sexual Orientation Not on file Last Filed Vital Signs Vital Sign Reading Time Taken Comments Blood Pressure 140/72 04/22/2024 10:41 AM EDT Pulse 60 04/22/2024 10:41 AM EDT Temperature - - Respiratory Rate - - Oxygen Saturation - - Inhaled Oxygen Concentration - - Weight 85.7 kg (189 lb) 04/22/2024 10:41 AM EDT Height 179.1 cm (5' 10.5 ) 04/22/2024 10:41 AM E DT Body Mass Index 26.74 04/22/2024 10:41 AM EDT Plan of Treatment Upcoming Encounters Date Type Department Care Team (Late st Contact Info) Description 03/15/2025 10:30 AM EDT Office Visit [facility] [address] [facility] [address] [place] [phone] Tawanda Pro DO [address] [facility] [address] [place] [address] Health Maintenance Due Date Last Done Comments Creatinine Level 1940 Diabetes: Hemoglobin A1C 1940 Lipid Panel 1940 Medicare Annual Wellness Visit (AWV) 1940 Potassium Level 1941 TSH Level 1941 Diabetes: Retinopathy Screening 1951 Pneumococcal Vaccine (1 of 2 - PCV) 01/25/1960 DTaP/Tdap/Td Vaccines (1 - Tdap) 1963 Zoster Vaccines (1 of 2) 1991 RSV High Risk: (Elderly (60+) or Population) (1 - 1-dose 75+ series) 01/25/2016 COVID-19 Vaccine ( - season) 2024 06/05/2021, 11/30/2020, 11/01/2020 Echocardiogram 02/03/2025 02/04/2024, 08/0 07/2021, 11/23/2021, Additional history exists Influenza Vaccine (Season Ended) 2025 HIB Vaccines Aged Out No longer eligi ble based on patient's age to complete this topic HPV Vaccines Aged Out No longer eligi ble based on patient's age to complete this topic Hepatitis A Vaccines Aged Out No long er eligible based on patient's age to complete this topic Hepatitis B Vaccines Aged Out No long er eligible based on patient's age to complete this topic IPV Vaccines Aged Out No longer eligi ble based on patient's age to complete this topic Meningococcal Vaccine Aged Out No wander emelina eligible based on patient's age to complete this topic Rotavirus Vaccines Aged Out No longer eligible based on patient's age to complete this topic Procedures Procedure Name Priority Date/Time Associated Diagnosis Comments XR CHEST 2 VIEWS 10/20/2024 10:1 5 AM EDT [facility] THYROID STIMULATING HORMONE Routine 10/20/2024 10:09 AM EDT [facility] ASPARTATE AMINO TRANSFERASE Routine 10/20/2024 10:09 AM EDT [facility] BASIC METABOLIC PANEL Routine 10/20/2024 10:09 AM EDT OUTSIDE IMAGING SCAN 10/20/2024 ECHOCARDIOGRAM 02/04/2024 from Last 3 Months or Most Recently Relevant to Health Maintenance Results * XR chest 2 views (10/20/2024 10:15 AM EDT) Anatomical Region Laterality Modality Thoracic, Chest Radiographic Connie ging 10/20/2024 10:1 5 AM EDT Narrative 10/20/2024 10:19 AM EDT [facility] Main [place] [address] [place] [address] XRay Report Signed Patient: Apolinar Norman MR#: [id number] : 1940 Acct:[id number] Age/Sex: 84 / M ADM Date: 10/20/24 Loc: RT Room: [facility]: Emilia Pro DO Copies to: Emilia Pro DO Ordering Provider: Emilia Pro DO Date of Service: 10/20/24 XR/XR chest 2V*: I49.9,Z79.899 Chest 2 views CLINICAL HISTORY: High risk medication use. COMPARISON: Chest 02/03/2024 09/02/2023 FINDINGS: Post CABG changes. Pacemaker device is in place. Heart appears normal in size. No lung consolidation pneumothorax pleural effusion or free air. Stable compression deformity involving a lower thoracic spine vertebrae since 09/02/2023 XR/XR chest 2V* IMPRESSION: NO ACUTE PROCESS. Impression dictated by: Titi Guaman Jr., D.O.10/20/2024 10:16 AM Dictation Location: [place] [address] Transcribed By: [facility] 10/20/24 1016 Dictated By: Titi Guaman Jr, DO 10/20/24 1015 Signed By: <Electronically signed by Titi Guaman Jr, DO in OV> 10/20/24 1016 Tawanda Pro DO IMG XR PROCEDURES Final Res ult * (ABNORMAL) [facility] Basic Metabolic Panel (10/20/2024 10:09 AM EDT) [facility] Glucose 64(L) 70 - 100 mg/dL [facility] Comment:Random Glucose Refer ence Range is dependent on time and content of last meal. Glucose of more than 200 mg/dL in a nonstressed, ambulatory subject supports the diagnosis of Diabetes Mellitus. ADA recommended reference range [facility] Blood Urea Nitrogen 38(H) 7 - 25 mg/dL [facility] Creatinine 2.94(H) 0.70 - 1.30 mg/dL [facility] H[facility] ESTIMATED GFR 20.473 mL/Min [facility] Sodium 142 136 - 145 mmol/L [facility] Potassium 4.1 3.5 - 5.1 mmol/L [facility] Chloride 105 98 - 107 mmol/L [facility] Carbon Dioxide 28.1 21.0 - 31.0 mmol/L [facility] Anion Gap 13.0 6.0 - 15.0 meq/L [facility] Calcium 9.1 8.6 - 10.3 mg/dL [facility] Plasma specimen or serum specimen or whole blood specimen 10/20/2024 10:09 AM EDT Tawanda Pro LAB BLOOD ORDERABLES Final Result Performing Organization Address City/[facility] Co de Phone Number [place] [address] [place] [address], [facility] [address] [place] [address] * [facility] Thyroid Stimulating Hormone (10/20/2024 10:09 AM EDT) [facility] Thyroid Stimulating Hormone 2.57 0.45 - 5.33 u[iU]/mL [facility] Comment:PERFORMED BY:[facility] [place], [place] [id number] MEDICAL DIRECTORIRIS STRAUSS M.D. [facility] Plasma specimen or serum specimen or whole blood specimen 10/20/2024 10:09 AM EDT Tawanda Pro DO LAB BLOOD ORDERABLES Final Result Performing Organization Address City/[facility]/ZIP Co de Phone Number [place] [address] [place] [address], [facility] [address] [place] [address] * [facility] Aspartate Amino Transferase (10/20/2024 10:09 AM EDT) [facility] Aspartate Amino Transferase 28 13 - 39 U/L [facility] Plasma specimen or serum specimen or whole blood specimen 10/20/2024 10:09 AM EDT Tawanda Pro DO LAB BLOOD ORDERABLES Final Result [place] [address] [place] [address], [facility] [address] [place] [address] * OUTSIDE IMAGING SCAN (10/20/2024) Anatomical Region Laterality Modality Other Narrative 10/20/2024 Ordered by an unspecified provider. Generic Provider Scanning OUTSIDE SCAN Final Result * Echocardiogram (02/04/2024) Narrative 02/04/2024 Ordered by an unspecified provider. Generic Provider Scanning CV ECHO PROCEDURES Fin al Result from Last 3 Months or Most Recently Relevant to Health Maintenance Insurance [employer] MEDICARE Care Teams Head Insulation Board Saw Operator Relationship Specialty Start Date End Date Justo Cameron MD [address] [facility] 110 [place] [address] PCP - General 01/16/23 Hussein Talavera MD [address] [facility] [address] [place] [address] Referring Physician Vascular Surgery 10/06/23
--- OUTSIDE RECORDS SUMMARY | 2024-12-29 08:16 | XMS_ITS | Encounter Summary ---
Author Organization [facility] Address [address] [place] [address] Phone Care Team Providers Care Calculating Machine Operator Name Role Phone Justo Cameron MD Primary Care Provider [phone] Hussein Talavera MD Unavailable Unavail able Encounter Details Date Type Department Care Team (Late st Contact Info) Description 10/20/2024 Scanned Document [facility] [address] [place] [address] Scanning, Generic Provider Social History Tobacco Use Types Packs/Day Years Used Date Smoking Tobacco: Former Cigarettes Q uit: 1983 Smokeless Tobacco: Never Alcohol Use Standard Drinks/Week Comments Never 0 (1 standard drink = 0.6 oz pur e alcohol) Sex and Gender Information Value Date Recorded Sex Assigned at Not on file Legal Sex Male 1:58 PM EST Gender Identity Not on file Sexual Orientation Not on file documented as of this encounter Plan of Treatment Upcoming Encounters Date Type Department Care Team (Late st Contact Info) Description 03/15/2025 10:30 AM EDT Office Visit [facility] [address] [facility] [address] [place] [address] Tawanda Pro DO [address] [facility] [address], [address] [place], [place] [phone] documented as of this encounter Procedures Procedure Name Priority Date/Time Associated Diagnosis Comments OUTSIDE IMAGING SCAN 10/20/2024 documented in this encounter Results * OUTSIDE IMAGING SCAN (10/20/2024) Anatomical Region Laterality Modality Other Narrative 10/20/2024 Ordered by an unspecified provider. us Generic Provider Scanning OUTSIDE SCAN Final Result documented in this encounter Visit Diagnoses Not on filedocumented in this encounter Additional Health Concerns Assessment Noted Time A fall risk assessment has been complete d for the patient 10/06/2023 9:12 AM EDT documented as of this encounter Care Teams Calculating Machine Operator Relationship Specialty Start Date End Date Justo Cameron MD [address] [facility] 110 [place] [address] PCP - General 01/16/23 Hussein Talavera MD [address] [facility] [address] [place] [address] Referring Physician Vascular Surgery 10/06/23 documented as of this encounter
--- OUTSIDE RECORDS SUMMARY | 2024-12-29 08:16 | XMS_ITS | Clinical Summary ---
Author Organization [facility] Address [address] [place] [address] Care Team Providers Care Second Hand Name Role Phone Justo Cameron MD Primary Care Provider [phone] Allergies Active Allergy Reactions Criticality Noted Date [...] (08/08/2022): Added automatically from request for surgery [id number] Social History Tobacco Use Types Packs/Day Years [...] Recorded Patient Health Questionnaire-2 Score 0 08/08/2022 [facility] [place] of Occupat ional Health - Occupational Stress [...] 09/04/2022 11:13 AM EST Plan of Treatment Health Maintenance Due Date Last Done Comments Medicare Annual Wellness (AWV) 1940 Depression Screening 1953 Adult Tetanus 1963 Pneumococcal Vaccine: 50+ Ye ars (1 of 1 - PCV) 1991 Zoster Vaccines (1 of 2) 1991 Fall Risk Screening 2006 COVID-19 Vaccine (1 - 2023-2 5 season) 2024 Influenza Vaccine (Season Ended) 2025 HIB Vaccines Aged Out No longer eligi ble based on patient's age to complete this topic HPV Vaccines Aged Out No longer eligi ble based on patient's age to complete this topic IPV Vaccines Aged Out No longer eligi ble based on patient's age to complete this topic Meningococcal B Vaccine Aged Out No l onger eligible based on patient's age to complete this topic Meningococcal Vaccine Aged Out No wander emelina eligible based on patient's age to complete this topic Rotavirus Vaccines Aged Out No longer eligible based on patient's age to complete this topic Medical Devices Implanted Type Area Brooch Maker Novelty Device Identifier Shelf Expiration Date Model / Serial / Lot Pacemaker Pacemaker Left: Chest Insurance [employer] MEDICARE Care Teams Second Hand Relationship Specialty Start Date End Date Justo Cameron MD [address] [place] [address] PCP - General 08/14/22
--- OUTSIDE RECORDS SUMMARY | 2024-12-29 08:16 | XMS_ITS | Clinical Summary ---
Author Organization [facility] Address [address] [place] [address] Care Team Providers Care Sales And Training Specialist Name Role Phone Unavailable Primary Care Provider Unavailabl e Social History Tobacco Use Types Packs/Day Years Used Date Smoking Tobacco: Never Assessed Sex and Gender Information Value Date Recorded Sex Assigned at Not on file Legal Sex Male 9:20 PM EST Gender Identity Not on file Sexual Orientation Not on file Plan of Treatment Not on file
--- OUTSIDE RECORDS SUMMARY | 2024-12-29 08:17 | XMS_ITS | Encounter Summary ---
Author Organization [facility] Address [address] [facility] [place] [address] Care Team Providers Care Clinical Dietitian Name Role Phone Justo Cameron MD Primary Care Provider [phone] Encounter Details Date Type Department Care Team (Late Contact Info) Description 10/27/2024 Abstract [facility] [address] [facility] 110 [place] [phone] Justo Cameron MD [address] [facility] 110 [place] [address] Social History Tobacco Use Types Packs/Day Years Used Date Smoking Tobacco: Former Cigarettes Q uit: 1983 Passive Smoke Exposure: Past Smokeless Tobacco: Never Alcohol Use Standard Drinks/Week Comments Yes 4 (1 standard drink = 0.6 oz pur e alcohol) caffeine: 3-4 cups per day PHQ-2 Answer Date Recorded Patient Health Questionnaire-2 Score 0 08/21/2023 Sex and Gender Information Value Date Recorded Sex Assigned at Not on file Legal Sex Male 7:17 PM EDT Gender Identity Not on file Sexual Orientation Not on file documented as of this encounter Plan of Treatment Upcoming Encounters Date Type Department Care Team (Late st Contact Info) Description 01/10/2025 9:30 AM EDT Office Visit [facility] [address] [place] [address] Justo Cameron MD [address] [place] [address] 02/03/2025 11:40 AM EDT Office Visit [facility] [address] [place] [address] Raffi West DPM [address] [facility] 5 [place] [address] 05/19/2025 10:45 AM EST Office Visit [facility] [address] [facility] [address] [place] [address] Allison Foster MD [address] [facility] 350 [place] [address] documented as of this encounter Visit Diagnoses Not on filedocumented in this encounter Care Teams Clinical Dietitian Relationship Specialty Start Date End Date Justo Cameron MD 112 [facility] 110 [place] [address] PCP - General Internal Medicine 01/02/23 documented as of this encounter
--- OUTSIDE RECORDS SUMMARY | 2024-12-29 08:17 | XMS_ITS | Encounter Summary ---
Author Organization [facility] Address [address] [facility] [place] [address] Care Team Providers Care Doctor Of Dental Medicine Name Role Phone Justo Cameron MD Primary Care Provider [phone] Encounter Details Date Type Department Care Team (Late Contact Info) Description 10/21/2024 Abstract [facility] [address] [facility] [address] [place] [phone] Justo Cameron MD [address] [facility] 110 [place] [address] Social History Tobacco Use Types Packs/Day Years [...] CI FM [address] [place] [address] Justo Cameron MD [address] [place] [address] 02/03/2025 11:40 AM EDT Office Visit [facility] [address] [place] [address] Raffi West DPM [address] [facility] 5 [place] [address] 05/19/2025 10:45 AM EST Office Visit [facility] [address] [facility] [address] [place] [address] Allison Foster MD [address] [facility] [address] [place] [address] documented as of this encounter Visit Diagnoses Not on filedocumented in this encounter Care Teams Doctor Of Dental Medicine Relationship Specialty Start Date End Date Justo Cameron MD 112 [facility] 110 [place] [address] PCP - General Internal Medicine 01/02/23 documented as of this encounter
--- OUTSIDE RECORDS SUMMARY | 2024-12-29 08:17 | XMS_ITS | Encounter Summary ---
Author Organization [facility] Address [address] [facility] [place] [address] Care Team Providers Care Kiln Charger Name Role Phone Justo Cameron MD Primary Care Provider [phone] Encounter Details Date Type Department Care Team (Late Contact Info) Description 08/17/2024 Abstract [facility] [address] [facility] 110 [place] [phone] Justo Cameron MD [address] [facility] 110 [place] [address] Social History Tobacco Use Types Packs/Day Years [...] [facility] [address] [place] [address] Justo Camreon MD [address] [place] [address] 02/03/2025 11:40 AM EDT Office Visit [facility] [address] [place] [address] Raffi West DPM [address] [facility] 5 [place] [address] 05/19/2025 10:45 AM EST Office Visit [facility] [address] [facility] [address] [place] [address] Allison Foster MD [address] [facility] [address] [place] [address] documented as of this encounter Visit Diagnoses Not on filedocumented in this encounter Care Teams Kiln Charger Relationship Specialty Start Date End Date Justo Cameron MD 112 [facility] 110 [place] [address] PCP - General Internal Medicine 01/02/23 documented as of this encounter
--- OUTSIDE RECORDS SUMMARY | 2024-12-29 08:17 | XMS_ITS | Encounter Summary ---
Author Organization [facility] Address [address] [facility] [place] [address] Care Team Providers Care Manager Oncology Name Role Phone Justo Cameron MD Primary Care Provider [phone] Encounter Details Date Type Department Care Team (Late Contact Info) Description 04/14/2024 Abstract [facility] [address] [facility] 110 [place] [phone] Justo Cameron MD [address] [facility] 110 [place] [address] Social History Tobacco Use Types Packs/Day Years [...] [facility] [address] [place] [address] Justo Cameron MD [address] [place] [address] 02/03/2025 11:40 AM EDT Office Visit [facility] [address] [place] [address] Raffi West DPM [address] [facility] 5 [place] [address] 05/19/2025 10:45 AM EST Office Visit [facility] [address] [facility] 350 [place] [address] Allison Foster MD [address] [facility] [address] [place] [address] documented as of this encounter Visit Diagnoses Not on filedocumented in this encounter Care Teams Manager Oncology Relationship Specialty Start Date End Date Justo Cameron MD 112 [facility] 110 [place] [address] PCP - General Internal Medicine 01/02/23 documented as of this encounter
--- OUTSIDE RECORDS SUMMARY | 2024-12-29 08:17 | XMS_ITS | Encounter Summary ---
Author Organization [facility] Address [address] [facility] [place] [address] Care Team Providers Care Triage Assistant Name Role Phone Justo Cameron MD Primary Care Provider [phone] Encounter Details Date Type Department Care Team (Late Contact Info) Description 04/15/2024 Abstract [facility] [address] [facility] 110 [place] [address] Justo Cameron MD [address] [facility] 110 [place] [address] Social History Tobacco Use Types Packs/Day Years [...] CI FM [address] [facility] 110 [place] [address] Justo Cameron MD [address] [facility] 110 [place] [address] 02/03/2025 11:40 AM EDT Office Visit [facility] PODIATRY [address] [facility] 120 [place] [address] Raffi West DPM 3006 [facility] 5 [place] [address] 05/19/2025 10:45 AM EST Office Visit [facility] T[facility] [address] [facility] 350 [place] [address] Allison Foster MD [address] [facility] 350 [place] [address] documented as of this encounter Visit Diagnoses Not on filedocumented in this encounter Care Teams Triage Assistant Relationship Specialty Start Date End Date Justo Cameron MD 112 [facility] 110 [place] [address] PCP - General Internal Medicine 01/02/23 documented as of this encounter
--- OUTSIDE RECORDS SUMMARY | 2024-12-29 08:17 | XMS_ITS | Encounter Summary ---
Author Organization [facility] Address [address] [facility] [place] [address] Care Team Providers Care Supervisor Fiberglass Boat Assembly Name Role Phone Justo Cameron MD Primary Care Provider [phone] Encounter Details Date Type Department Care Team (Late Contact Info) Description 04/07/2024 Abstract [facility] FM [address] [facility] 110 [place] [address] Justo Cameron MD [address] [facility] 110 [place] [address] Social History Tobacco Use Types Packs/Day Years [...] CI FM [address] [facility] [address] [place] [address] Justo Cameron MD [address] [facility] 110 [place] [address] 02/03/2025 11:40 AM EDT Office Visit [facility] PODIATRY [address] [facility] [address] [place] [address] Raffi West DPM 3006 [facility] 5 [place] [address] 05/19/2025 10:45 AM EST Office Visit [facility] TOMY ROSS [address] [facility] 350 [place] [address] Allison Foster MD [address] [facility] 350 [place] [address] documented as of this encounter Visit Diagnoses Not on filedocumented in this encounter Care Teams Supervisor [employer]lass Boat Assembly Relationship Specialty Start Date End Date Justo Cameron MD 112 [facility] 110 [place] [address] PCP - General Internal Medicine 01/02/23 documented as of this encounter
--- OUTSIDE RECORDS SUMMARY | 2024-12-29 08:18 | XMS_ITS | Encounter Summary ---
Author Organization [facility] Address [address] [facility] [place] [address] Care Team Providers Care In Store Marketer Name Role Phone Justo Cameron MD Primary Care Provider [phone] Encounter Details Date Type Department Care Team (Late Contact Info) Description 05/03/2024 Abstract [facility] CI FM [address] [facility] 110 [place] [address] Justo Cameron MD [address] [facility] 110 [place] [address] Social History Tobacco Use Types Packs/Day Years [...] CI FM [address] [facility] 110 [place] [address] Justo Cameron MD [address] Jacob 110 [place] [address] 02/03/2025 11:40 AM EDT Office Visit [facility] PODIATRY [address] [facility] [address] [place] [address] Raffi West DPM 3006 [facility] 5 [place] [address] 05/19/2025 10:45 AM EST Office Visit [facility] TOMY ROSS [address] [facility] 350 [place] [address] Allison Foster MD [address] [facility] 350 [place] [address] documented as of this encounter Visit Diagnoses Not on filedocumented in this encounter Care Teams In Store Marketer Relationship Specialty Start Date End Date Justo Cameron MD 112 [facility] 110 [place] [address] PCP - General Internal Medicine 01/02/23 documented as of this encounter
--- OUTSIDE RECORDS SUMMARY | 2024-12-29 08:18 | XMS_ITS | Encounter Summary ---
Author Organization [facility] Address [address] [facility] [place] [address] Care Team Providers Care Appliance Servicer Name Role Phone Justo Cameron MD Primary Care Provider Encounter Details Date Type Department Care Team (Late Contact Info) Description 05/04/2024 Abstract [facility] [address] [facility] 110 [place] [address] Justo Cameron MD [address] [facility] 110 [place] [address] Social History Tobacco Use Types Packs/Day Years [...] CI FM [address] [facility] 110 [place] [address] Justo Cameron MD [address] Jacob 110 [place] [address] 02/03/2025 11:40 AM EDT Office Visit [facility] PODIATRY [address] [facility] 120 [place] [address] Raffi West DPM 3006 [facility] 5 [place] [address] 05/19/2025 10:45 AM EST Office Visit [facility] TOMY ROSS [address] [facility] 350 [place] [address] Allison Foster MD [address] [facility] 350 [place] [address] documented as of this encounter Visit Diagnoses Not on filedocumented in this encounter Care Teams Appliance Servicer Relationship Specialty Start Date End Date Justo Cameron MD 112 [facility] 110 [place] [address] PCP - General Internal Medicine 01/02/23 documented as of this encounter
--- OUTSIDE RECORDS SUMMARY | 2024-12-29 08:18 | XMS_ITS | Encounter Summary ---
Author Organization [facility] Address [address] [facility] [place] [address] Care Team Providers Care Insurance Analyst Name Role Phone Justo Cameron MD Primary Care Provider [phone] Encounter Details Date Type Department Care Team (Late Contact Info) Description 03/10/2024 Abstract [facility] FM [address] [facility] 110 [place] [address] Justo Cameron MD [address] [facility] 110 [place] [address] Social History Tobacco Use Types Packs/Day Years [...] CI FM [address] [facility] 110 [place] [address] Justo Cameron MD [address] Jacob 110 [place] [address] 02/03/2025 11:40 AM EDT Office Visit [facility] PODIATRY [address] [facility] 120 [place] [address] Raffi West DPM [facility]006 [facility] 5 [place] [address] 05/19/2025 10:45 AM EST Office Visit [facility] TOMY ROSS [address] [facility] 350 [place] [address] Allison Foster MD [address] [facility] 350 [place] [address] documented as of this encounter Visit Diagnoses Not on filedocumented in this encounter Care Teams Insurance Analyst Relationship Specialty Start Date End Date Justo Cameron MD 112 [facility] 110 [place] [address] PCP - General Internal Medicine 01/02/23 documented as of this encounter
--- OUTSIDE RECORDS SUMMARY | 2024-12-29 08:18 | XMS_ITS | Encounter Summary ---
Author Organization [facility] Address [address] [facility] [place] [address] Care Team Providers Care Field Representative Name Role Phone Justo Cameron MD Primary Care Provider [phone] Encounter Details Date Type Department Care Team (Late Contact Info) Description 05/11/2024 Abstract [facility] FM [address] [facility] 110 [place] [address] Justo Cameron MD [address] [facility] 110 [place] [address] Social History Tobacco Use Types Packs/Day Years [...] CI FM [address] [facility] 110 [place] [address] Justo Cameron MD [address] Jacob 110 [place] [address] 02/03/2025 11:40 AM EDT Office Visit [facility] PODIATRY [address] [facility] 120 [place] [address] Raffi West DPM [address] [facility] 5 [place] [address] 05/19/2025 10:45 AM EST Office Visit [facility] TOMY ROSS [address] [facility] 350 [place] [address] Allison Foster MD [address] [facility] 350 [place] [address] documented as of this encounter Visit Diagnoses Not on filedocumented in this encounter Care Teams Field Representative Relationship Specialty Start Date End Date Justo Cameron MD 112 [facility] 110 [place] [address] PCP - General Internal Medicine 01/02/23 documented as of this encounter
--- OUTSIDE RECORDS SUMMARY | 2024-12-29 08:18 | XMS_ITS | Encounter Summary ---
Author Organization [facility] Address [address] [facility] [place] [address] Care Team Providers Care Contract Analyst Name Role Phone Justo Cameron MD Primary Care Provider [phone] Encounter Details Date Type Department Care Team (Late Contact Info) Description 02/05/2024 Abstract [facility] FM [address] [facility] 110 [place] [address] Justo Cameron MD [address] [facility] 110 [place] [address] Social History Tobacco Use Types Packs/Day Years [...] CI FM [address] [facility] 110 [place] [address] Justo Cameron MD [address] [facility] 110 [place] [address] 02/03/2025 11:40 AM EDT Office Visit [facility] PODI[facility] [address] [facility] 120 [place] [address] Raffi West DPM 3006 [facility] 5 [place] [address] 05/19/2025 10:45 AM EST Office Visit [facility] TOMY ROSS [address] [facility] 350 [place] [address] Allison Foster MD [address] [facility] 350 [place] [address] documented as of this encounter Visit Diagnoses Not on filedocumented in this encounter Care Teams Contract Analyst Relationship Specialty Start Date End Date Justo Cameron MD 112 [facility] 110 [place] [address] PCP - General Internal Medicine 01/02/23 documented as of this encounter
--- OUTSIDE RECORDS SUMMARY | 2024-12-29 08:18 | XMS_ITS | Encounter Summary ---
Author Organization [facility] Address [address] [facility] [place] [address] Care Team Providers Care Transfusion Aide Name Role Phone Justo Cameron MD Primary Care Provider [phone] Encounter Details Date Type Department Care Team (Late Contact Info) Description 04/14/2024 Abstract [facility] FM [address] [facility] 110 [place] [address] Justo Cameron MD [address] [facility] 110 [place] [address] Social History Tobacco Use Types Packs/Day Years [...] CI FM [address] [facility] 110 [place] [address] Justo Cameron MD [address] [facility] 110 [place] [address] 02/03/2025 11:40 AM EDT Office Visit [facility] PODIATRY [address] [facility] 120 [place] [address] Raffi West DPM 3006 [facility] 5 [place] [address] 05/19/2025 10:45 AM EST Office Visit [facility] TOMY ROSS [address] [facility] 350 [place] [address] Allison Foster MD [address] [facility] 350 [place] [address] documented as of this encounter Visit Diagnoses Not on filedocumented in this encounter Care Teams Transfusion Aide Relationship Specialty Start Date End Date Justo Cameron MD 112 [facility] 110 [place] [address] PCP - General Internal Medicine 01/02/23 documented as of this encounter
--- OUTSIDE RECORDS SUMMARY | 2024-12-29 08:18 | XMS_ITS | Encounter Summary ---
Author Organization [facility] Address [address] [facility] [place] [address] Care Team Providers Care Medical Sociologist Name Role Phone Justo Cameron MD Primary Care Provider [phone] Encounter Details Date Type Department Care Team (Late Contact Info) Description 06/07/2024 Abstract [facility] FM [address] [facility] 110 [place] [address] Justo Cameron MD [address] [facility] 110 [place] [address] Social History Tobacco Use Types Packs/Day Years [...] CI FM [address] [facility] 110 [place] [address] Justo Cameron MD [address] [facility] 110 [place] [address] 02/03/2025 11:40 AM EDT Office Visit [facility] PODIATRY [address] [facility] 120 [place] [address] Raffi West DPM 3006 [facility] 5 [place] [address] 05/19/2025 10:45 AM EST Office Visit [facility] TOMY ROSS [address] [facility] 350 [place] [address] Allison Foster MD [address] [facility] 350 [place] [address] documented as of this encounter Visit Diagnoses Not on filedocumented in this encounter Care Teams Medical Sociologist Relationship Specialty Start Date End Date Justo Cameron MD 112 [facility] 110 [place] [address] PCP - General Internal Medicine 01/02/23 documented as of this encounter
--- OUTSIDE RECORDS SUMMARY | 2024-12-29 08:18 | XMS_ITS | Encounter Summary ---
Author Organization [facility] Address [address] [facility] [place] [address] Care Team Providers Care Tax Services Manager Name Role Phone Justo Cameron MD Primary Care Provider [phone] Encounter Details Date Type Department Care Team (Late Contact Info) Description 05/13/2024 Abstract [facility] FM [address] [facility] 110 [place] [address] Justo Cameron MD [address] [facility] 110 [place] [address] Social History Tobacco Use Types Packs/Day Years [...] CI FM [address] [facility] 110 [place] [address] Justo Cameron MD [address] [facility] 110 [place] [address] 02/03/2025 11:40 AM EDT Office Visit [facility] PODIATRY [address] [facility] 120 [place] [address] Raffi West DPM 3006 [facility] 5 [place] [address] 05/19/2025 10:45 AM EST Office Visit [facility] TOM[facility] ROSS [address] [facility] 350 [place] [address] Allison Foster MD [address] [facility] 350 [place] [address] documented as of this encounter Visit Diagnoses Not on filedocumented in this encounter Care Teams Tax Services Manager Relationship Specialty Start Date End Date Justo Cameron MD 112 [facility] 110 [place] [address] PCP - General Internal Medicine 01/02/23 documented as of this encounter
--- OUTSIDE RECORDS SUMMARY | 2024-12-29 08:18 | XMS_ITS | Encounter Summary ---
Author Organization [facility] Address [address] [facility] [place] [address] Care Team Providers Care Carbon Dioxide Operator Name Role Phone Justo Cameron MD Primary Care Provider [phone] Encounter Details Date Type Department Care Team (Late Contact Info) Description 04/22/2024 Abstract [facility] FM [address] [facility] 110 [place] [address] Justo Cameron MD [address] [facility] 110 [place] [address] Social History Tobacco Use Types Packs/Day Years [...] CI FM [address] [facility] 110 [place] [address] Justo Cameron MD [address] [facility] 110 [place] [address] 02/03/2025 11:40 AM EDT Office Visit [facility] PODIATRY [address] [facility] 120 [place] [address] Raffi West DPM 3006 [facility] 5 [place] [address] 05/19/2025 10:45 AM EST Office Visit [facility] TOM[facility] ROSS [address] [facility] 350 [place] [address] Allison Foster MD [address] [facility] 350 [place] [address] documented as of this encounter Visit Diagnoses Not on filedocumented in this encounter Care Teams Carbon Dioxide Operator Relationship Specialty Start Date End Date Justo Cameron MD 112 [facility] 110 [place] [address] PCP - General Internal Medicine 01/02/23 documented as of this encounter
--- OUTSIDE RECORDS SUMMARY | 2024-12-29 08:18 | XMS_ITS | Encounter Summary ---
Author Organization [facility] Address [address] [facility] [place] [address] Care Team Providers Care Corporate Recruiter Name Role Phone Justo Cameron MD Primary Care Provider [phone] Encounter Details Date Type Department Care Team (Late Contact Info) Description 04/12/2024 Abstract [facility] CI FM [address] [facility] 110 [place] [address] Justo Cameron MD [address] [facility] 110 [place] [address] Social History Tobacco Use Types Packs/Day Years [...] CI FM [address] [facility] 110 [place] [address] Justo Cameron MD [address] [facility] 110 [place] [address] 02/03/2025 11:40 AM EDT Office Visit [facility] PODIATRY [address] [facility] 120 [place] [address] Raffi West DPM 3006 [facility] 5 [place] [address] 05/19/2025 10:45 AM EST Office Visit [facility] TOMY ROSS [address] [facility] 350 [place] [address] Allison Foster MD [address] [facility] 350 [place] [address] documented as of this encounter Visit Diagnoses Not on filedocumented in this encounter Care Teams Corporate Recruiter Relationship Specialty Start Date End Date Justo Cameron MD 112 [facility] 110 [place] [address] PCP - General Internal Medicine 01/02/23 documented as of this encounter
--- OUTSIDE RECORDS SUMMARY | 2024-12-29 08:19 | XMS_ITS | Encounter Summary ---
Author Organization [facility] Address [address] [facility] [place] [address] Care Team Providers Care Cattle Farmer Name Role Phone Justo Cameron MD Primary Care Provider [phone] Encounter Details Date Type Department Care Team (Late Contact Info) Description 11/13/2023 Abstract [facility] FM [address] [facility] 110 [place] [address] Justo Cameron MD [address] [facility] 110 [place] [address] Social History Tobacco Use Types Packs/Day Years [...] CI FM [address] [facility] 110 [place] [address] Justo Cameron MD [address] [facility] 110 [place] [address] 02/03/2025 11:40 AM EDT Office Visit [facility] PODIATRY [address] [facility] 120 [place] [address] Raffi West DPM 3006 [facility] 5 [place] [address] 05/19/2025 10:45 AM EST Office Visit [facility] TOMY ROSS [address] [facility] 350 [place] [address] Allison Foster MD [address] [facility] 350 [place] [address] documented as of this encounter Visit Diagnoses Not on filedocumented in this encounter Care Teams Cattle Farmer Relationship Specialty Start Date End Date Justo Cameron MD 112 [facility] 110 [place] [address] PCP - General Internal Medicine 01/02/23 documented as of this encounter
--- OUTSIDE RECORDS SUMMARY | 2024-12-29 08:19 | XMS_ITS | Encounter Summary ---
Author Organization [facility] Address [address] [facility] [place] [address] Care Team Providers Care Security Manager Name Role Phone Justo Cameron MD Primary Care Provider [phone] Encounter Details Date Type Department Care Team (Late Contact Info) Description 11/26/2023 Abstract [facility] FM [address] [facility] 110 [place] [address] Justo Cameron MD [address] [facility] 110 [place] [address] Social History Tobacco Use Types Packs/Day Years [...] CI FM [address] [facility] 110 [place] [address] Justo Cameron MD [address] [facility] 110 [place] [address] 02/03/2025 11:40 AM EDT Office Visit [facility] PODIATRY [address] 120 [place] [address] Raffi West DPM 3006 [facility] 5 [place] [address] 05/19/2025 10:45 AM EST Office Visit [facility] TOMY ROSS [address] [facility] 350 [place] [address] Allison Foster MD [address] [facility] 350 [place] [address] documented as of this encounter Visit Diagnoses Not on filedocumented in this encounter Care Teams Security Manager Relationship Specialty Start Date End Date Justo Cameron MD 112 [facility] 110 [place] [address] PCP - General Internal Medicine 01/02/23 documented as of this encounter
--- OUTSIDE RECORDS SUMMARY | 2024-12-29 08:19 | XMS_ITS | Encounter Summary ---
Author Organization [facility] Address [address] [facility] [place] [address] Care Team Providers Care Waterworks Employee Name Role Phone Justo Cameron MD Primary Care Provider [phone] Encounter Details Date Type Department Care Team (Late Contact Info) Description 02/05/2024 Abstract [facility] FM [address] [facility] 110 [place] [address] Justo Cameron MD [address] [facility] 110 [place] [address] Social History Tobacco Use Types Packs/Day Years [...] CI FM [address] [facility] 110 [place] [address] Justo Cameron MD [address] [facility] 110 [place] [address] 02/03/2025 11:40 AM EDT Office Visit [facility] PODIATRY [address] [facility] 120 [place] [address] Raffi West DPM 3006 [facility] 5 [place] [address] 05/19/2025 10:45 AM EST Office Visit [facility] TOMY ROSS [address] [facility] 350 [place] [address] Allison Foster MD [address] [facility] 350 [place] [address] documented as of this encounter Visit Diagnoses Not on filedocumented in this encounter Care Teams Waterworks Employee Relationship Specialty Start Date End Date Justo Cameron MD 112 [facility] 110 [place] [address] PCP - General Internal Medicine 01/02/23 documented as of this encounter
--- OUTSIDE RECORDS SUMMARY | 2024-12-29 08:19 | XMS_ITS | Encounter Summary ---
Author Organization [facility] Address [address] [facility] [place] [address] Care Team Providers Care Superior Court Clerk Name Role Phone Justo Cameron MD Primary Care Provider [phone] Encounter Details Date Type Department Care Team (Late Contact Info) Description 02/05/2024 Orders Only [facility] CI FM [address] [facility] 110 [place] [address] Unallocated, Noms Provider, [address] [place] [address] Social History Tobacco Use Types Packs/Day Years [...] CI FM [address] [facility] 110 [place] [address] Justo Cameron MD [address] [facility] 110 [place], [place] [address] 02/03/2025 11:40 AM EDT Office Visit [facility] PODIATRY [address] [facility] 120 [place] [address] Raffi West, DPBhavana 3006 [facility] 5 [place] [address] 05/19/2025 10:45 AM EST Office Visit [facility] DERM [address] [facility]ACOB 350 [place] [address] Allison Foster MD [address] [facility] 350 [place] [address] documented as of this encounter Procedures Procedure Name Priority Date/Time Associated Diagnosis Comments ELECTROCARDIOGRAM REPORT Routine 024 8:30 AM EDT documented in this encounter Results * Electrocardiogram Report (02/05/2024 8:30 AM EDT) us Noms Provider Unallocated MD IN CLINIC/BEDSIDE O RDERABLES Final Result documented in this encounter Visit Diagnoses Not on filedocumented in this encounter Care Teams Superior Court Clerk Relationship Specialty Start Date End Date Justo Cameron MD [address] [facility] 110 [place] [address] PCP - General Internal Medicine 01/02/23 documented as of this encounter
--- OUTSIDE RECORDS SUMMARY | 2024-12-29 08:19 | XMS_ITS | Encounter Summary ---
Author Organization [facility] Address [address] [facility] [place] [address] Care Team Providers Care Solution Consultant Name Role Phone Justo Cameron MD Primary Care Provider [phone] Encounter Details Date Type Department Care Team (Late Contact Info) Description 10/06/2023 Abstract [facility] [address] [facility] 110 [place] [phone] Justo Cameron MD [address] [email or web address] 110 [place] [address] Social History Tobacco Use Types Packs/Day Years [...] CI FM [address] [facility] [address] [place] [address] Justo Cameron MD [address] [facility] 110 [place] [address] 02/03/2025 11:40 AM EDT Office Visit [facility] [address] [facility] [address] [place] [address] Raffi West DPM 3006 [facility] 5 [place] [address] 05/19/2025 10:45 AM EST Office Visit [facility] [address] [facility] 350 [place] [address] Allison Foster MD [address] [facility] [[email or web address]] 350 [place] [address] documented as of this encounter Visit Diagnoses Not on filedocumented in this encounter Care Teams Solution Consultant Relationship Specialty Start Date End Date Justo Cameron MD 112 [facility] 110 [place] [address] PCP - General Internal Medicine 01/02/23 documented as of this encounter
--- OUTSIDE RECORDS SUMMARY | 2024-12-29 08:19 | XMS_ITS | Encounter Summary ---
Author Organization [facility] Address [address] [facility] [place] [address] Care Team Providers Care Fur Vault Attendant Name Role Phone Justo Cameron MD Primary Care Provider Encounter Details Date Type Department Care Team (Late Contact Info) Description 03/31/2024 Abstract [facility] [address] [facility] 110 [place] [phone] Justo Cameron MD [address] [facility] 110 [place] [address] Social History Tobacco Use Types Packs/Day Years [...] CI FM [address] [facility] [address] [place] [address] Justo Cameron MD [address] [facility] [address] [place] [address] 02/03/2025 11:40 AM EDT Office Visit [facility] [address] [address] [place] [address] Raffi West DPM 3006 [facility] 5 [place] [address] 05/19/2025 10:45 AM EST Office Visit [facility] [address] [facility] 350 [place] [address] Allison Foster MD [address] [facility] 350 [place] [address] documented as of this encounter Visit Diagnoses Not on filedocumented in this encounter Care Teams Fur Vault Attendant Relationship Specialty Start Date End Date Justo Cameron MD 112 [facility] 110 [place] [address] PCP - General Internal Medicine 01/02/23 documented as of this encounter
--- OUTSIDE RECORDS SUMMARY | 2024-12-29 08:19 | XMS_ITS | Encounter Summary ---
Author Organization [facility] Address [address] [facility] [place] [address] Care Team Providers Care Distillation Operator Helper Name Role Phone Justo Cameron MD Primary Care Provider [phone] Encounter Details Date Type Department Care Team (Late Contact Info) Description 12/10/2023 Abstract [facility] [address] [facility] 110 [place] [phone] Justo Cameron MD [address] [facility] 110 [place] [address] Social History Tobacco Use Types Packs/Day Years [...] CI FM [address] [facility] [address] [place] [address] Justo Cameron MD [address] [facility] 110 [place] [address] 02/03/2025 11:40 AM EDT Office Visit [facility] [address] [place] [address] [place] [address] Raffi West DPM 3006 [facility] 5 [place] [address] 05/19/2025 10:45 AM EST Office Visit [facility] [address] [facility] 350 [place] [address] Allison Foster MD [address] [facility] 350 [place] [address] documented as of this encounter Visit Diagnoses Not on filedocumented in this encounter Care Teams Distillation Operator Helper Relationship Specialty Start Date End Date Justo Cameron MD 112 [facility] 110 [place] [address] PCP - General Internal Medicine 01/02/23 documented as of this encounter
--- OUTSIDE RECORDS SUMMARY | 2024-12-29 08:19 | XMS_ITS | Encounter Summary ---
Author Organization [facility] Address [address] [facility] [place] [address] Care Team Providers Care Concrete Wall Grinder Operator Name Role Phone Justo Cameron MD Primary Care Provider [phone] Encounter Details Date Type Department Care Team (Late Contact Info) Description 03/18/2024 Abstract [facility] [address] [facility] 110 [place] [phone] Justo Cameron MD [address] [facility] 110 [place] [address] Social History Tobacco Use Types Packs/Day Years [...] CI FM [address] [facility] [address] [place] [address] Justo Cameron MD [address] [facility] [address] [place] [address] 02/03/2025 11:40 AM EDT Office Visit [facility] [address] [place] [address] [place] [address] Raffi West DPM 3006 [facility] 5 [place] [address] 05/19/2025 10:45 AM EST Office Visit [facility] [address] [facility] 350 [place] [address] Allison Foster MD [address] [facility] 350 [place] [address] documented as of this encounter Visit Diagnoses Not on filedocumented in this encounter Care Teams Concrete Wall Grinder Operator Relationship Specialty Start Date End Date Justo Cameron MD 112 [facility] 110 [place] [address] PCP - General Internal Medicine 01/02/23 documented as of this encounter
--- OUTSIDE RECORDS SUMMARY | 2024-12-29 08:19 | XMS_ITS | Clinical Summary ---
Author Organization [facility] Address [id number] [address] [place] [address] Care Team Providers Care Loss Prevention Consultant Name Role Phone Unavailable Primary Care Provider Unavailabl e Social History Tobacco Use Types Packs/Day Years Used Date Smoking Tobacco: Never Assessed Childcare Answer Date Recorded Childcare Unknown 12/23/2018 Employment Answer Date Recorded Employment Unknown 12/23/2018 Sex and Gender Information Value Date Recorded Sex Assigned at Not on file Legal Sex Male 10:27 AM EDT Gender Identity Not on file Sexual Orientation Not on file Plan of Treatment Not on file Medical Devices Not on file
--- OUTSIDE RECORDS SUMMARY | 2024-12-29 08:19 | XMS_ITS | Encounter Summary ---
Author Organization [facility] Address [address] [facility] [place] [address] Care Team Providers Care Dress Designer Name Role Phone Justo Cameron MD Primary Care Provider [phone] Encounter Details Date Type Department Care Team (Late Contact Info) Description 02/11/2024 Abstract [facility] [address] [facility] 110 [place] [address] Justo Cameron MD [address] [facility] 110 [place] [address] Social History Tobacco Use Types Packs/Day Years [...] CI FM [address] [facility] [address] [place] [address] Justo Cameron MD [address] [facility] 110 [place] [address] 02/03/2025 11:40 AM EDT Office Visit [facility] [address] [place] [address] Raffi West DPM 3006 [facility] 5 [place] [address] 05/19/2025 10:45 AM EST Office Visit [facility] [address] [facility] 350 [place] [address] Allison Foster MD [address] [facility] 350 [place] [address] documented as of this encounter Visit Diagnoses Not on filedocumented in this encounter Care Teams Dress Designer Relationship Specialty Start Date End Date Justo Cameron MD 112 [facility] 110 [place] [address] PCP - General Internal Medicine 01/02/23 documented as of this encounter
--- OUTSIDE RECORDS SUMMARY | 2024-12-29 08:19 | XMS_ITS | Encounter Summary ---
Author Organization [facility] Address [address] [facility] [place] [address] Care Team Providers Care Marketing Rotation Associate Name Role Phone Justo Cameron MD Primary Care Provider [phone] Encounter Details Date Type Department Care Team (Late Contact Info) Description 09/02/2023 Abstract [facility] [address] [facility] 110 [place] [address] Justo Cameron MD [address] [facility] 110 [place] [address] Social History Tobacco Use Types Packs/Day Years [...] CI FM [address] [address] [place] [address] Justo Cameron MD [address] [facility] [address] [place] [address] 02/03/2025 11:40 AM EDT Office Visit [facility] [address] [address] [place] [address] Raffi West DPM 3006 [facility] 5 [place] [address] 05/19/2025 10:45 AM EST Office Visit [facility] [address] [facility] 350 [place] [address] Allison Foster MD [address] [facility] 350 [place] [address] documented as of this encounter Visit Diagnoses Not on filedocumented in this encounter Care Teams Marketing Rotation Associate Relationship Specialty Start Date End Date Justo Cameron MD 112 [facility] 110 [place] [address] PCP - General Internal Medicine 01/02/23 documented as of this encounter
--- OUTSIDE RECORDS SUMMARY | 2024-12-29 08:19 | XMS_ITS | Encounter Summary ---
Author Organization [facility] Address [address] [facility] [place] [address] Care Team Providers Care Set Up Mechanic Automatic Line Name Role Phone Justo Cameron MD Primary Care Provider [phone] Encounter Details Date Type Department Care Team (Late Contact Info) Description 11/03/2023 Abstract [facility] [address] [facility] 110 [place] [phone] Justo Cameron MD [address] [facility] 110 [place] [address] Social History Tobacco Use Types Packs/Day Years [...] CI FM [address] [address] [place] [address] Justo Cameron MD [address] [facility] [address] [place] [address] 02/03/2025 11:40 AM EDT Office Visit [facility] [address] [place] [address] Raffi West DPM 3006 [facility] 5 [place] [address] 05/19/2025 10:45 AM EST Office Visit [facility] [address] [facility] 350 [place] [address] Allison Foster MD [address] [facility] 350 [place] [address] documented as of this encounter Visit Diagnoses Not on filedocumented in this encounter Care Teams Set Up Mechanic Automatic Line Relationship Specialty Start Date End Date Justo Cameron MD 112 [facility] 110 [place] [address] PCP - General Internal Medicine 01/02/23 documented as of this encounter
--- OUTSIDE RECORDS SUMMARY | 2024-12-29 08:19 | XMS_ITS | CCD ---
Author Organization [facility] Care Team Providers Care Director Business Management Name Role Phone PHYSICIAN, DEFAULT Unavailable Unavailable PHYSICIAN, DEFAULT Unavailable Unavailable JUSTO CAMERON Unavailable Unavailable JUSTO GIBBONS Unavailable Unavailable JUSTO CAMERON Unavailable Unavailable JUSTO CAMERON Unavailable Unavailable UNKNOWN, PROVIDER Unavailable Unavailable PHYSICIAN, DEFAULT Unavailable Unavailable PHYSICIAN, DEFAULT Unavailable Unavailable JUSTO CAMERON Unavailable Unavailable [facility], [facility]AB A Unavailable Unavailable [facility], [facility] A Unavailable Unavailable JUSTO CAMERON Unavailable Unavailable JUSTO GIBBONS Unavailable Unavailable Unavailable Unavailable BECCA Cameron Primary Care Provider MD Tawanda Murdock Attending Provider ANDRÉS Jolley Attending Provider BECCA Cameron Primary Care Provider MD Tawanda Murdock Attending Provider Sameera Jolley Unavailable Hussein Talavera Unavailable DO Emilia Pro Attending Provider [phone] MD Hussein Talavera Attending Provider Francisco Javier, Nuvia Unavailable FRANCISCO JAVIER, NUVIA Consulting Unavailable FRANCISCO JAVIER, NUVIA Admitting Unavailable DR JUSTO CAMERON Primary Care Unavailable FRANCISCO JAVIER, NUVIA Attending Unavailable DR JUSTO CAMERON Primary Care Unavailable MISC, DR MIRANDA Attending Unavailable MISC, DR MIRANDA Consulting Unavailable MISC, DR MIRANDA Admitting Unavailable PALLAVI LOPEZ Consulting Unavailable BECCA Cameron Primary Care Provider DO Andrea Gomez Emergency Provider DO Frantz Weinstein Admit Provider MD Jonathon Ring Other Provider MD Mere Nelson Attending Provider MD Tawanda Murdock Attending Provider Rakesh II [place] Primary Care Provider [phone] Sophia Woo Unavailable Rakesh II [place] Primary Care Provider MD Tawanda Murdock Attending Provider MD Pita Melgar Attending Provider Rakesh II Justo Primary Care Provider MD Tawanda Murdock Attending Provider OPAL, NUVIA Attending Unavailable OPAL, NUVIA Admitting Unavailable OPAL, NUVIA Attending Unavailable OPAL, NUVIA Attending Unavailable Rakesh II [place] Primary Care Provider MD Hussein Talavera Attending Provider [phone] MD Tawanda Murdock Attending Provider Rakesh II, Dr. Justo Long Primary Care Patricia vailable Cameron II, Dr. Justo Long Primary Care Patricia vailable McGuinn II, Dr. Tawanda Tinoco Attending Unavailable Cameron II, Dr. Justo Long [facility] Care Patricia vailable McGuinn II, Dr. Tawanda Tinoco Attending Unavailable Cameron II, Dr. Justo Long Primary Care Patricia vailable McGuinn II, Dr. Tawanda Tinoco Attending Unavailable McGuinn II, Dr. Tawanda Tinoco Attending Unavailable Cameron II, Dr. Justo Long Primary Care Patricia vailable McGuinn II, Dr. Tawanda Tinoco Attending Unavailable Cameron II, Dr. Justo Long Primary Care Patricia vailable Yeison Farah Attending Unavailable Yeison Farah Referring Unavailable Cameron II, Dr. Justo Long Primary Care Patricia vailable McGuinn II, Dr. Tawanda Tinoco Referring Unavailable McGuinn II, Dr. Tawanda Tinoco Attending Unavailable Cameron II, Dr. Justo Long Primary Care Patricia vailable McGuinn II, Dr. Tawanda Tinoco Attending Unavailable Cameron II, Dr. Justo Long Primary Care Patricia vailable Rakesh II, Dr. Justo Long Primary Care Patricia vailable Rakesh II, Dr. Justo Long Primary Care Patricia vailable Cameron II, Dr. Justo Long Primary Care Patricia vailable Rakesh II, Dr. Justo Long [facility] Care Patricia vailaJusto Abad MD Primary Care Provider BECCA Cameron Primary Care Provider MD Tawanda Murdock Attending Provider MD Sophia Woo Attending Provider [phone] BECCA Cameron Primary Care Provider MD Tawanda Murdock Attending Provider MD Sophia Woo Attending Provider [phone] MD Hussein Talavera Attending Provider Justo Cameron MD Primary Care Provider Hussein Talavera MD Unavailable BECCA Cameron Primary Care Provider MD Tawnada Murdock Attending Provider BECCA Cameron Primary Care Provider MD Tawanda Murdock Attending Provider ANDRÉS Jolley Attending Provider BECCA Cameron Primary Care Provider MD Hussein Talavera Attending Provider MD Tawanda Murdock Attending Provider DO Frantz Weinstein Admit Provider [phone] MD Mere Nelson Attending Provider DO Immanuel Burk Other Provider MD Mikaela Torrez Other Provider MD Titi Cuevas Other Provider Turovskaya, DIRECTOR INDEPENDENT Madelin Other Provider DO Naun Blank Jr Other Provider MD Artis Ugarte Other Provider Rakesh, BECCA Justo Primary Care Provider [phone] [facility], DIRECTOR INDEPENDENT Madelin Other Provider MD Sophia Woo Attending Provider [phone] YEISON FARAH Attending Unavailable TAWANDA MURDOCK Referring Unavailable JUSTO CAMERON B Primary Care Unavailable TAWANDA PRO Attending Unavailable YEISON FARAH Referring Unavailable CAMERON JUSTO B Primary Care Unavailable Hussein Talavera MD Unavailable Unavail able BECCA Cameron Justo Primary Care Provider [phone] [facility], DIRECTOR INDEPENDENT Madelin Other Provider Rakesh II, Justo Primary Care Provider mEilia Pro DO Attending Provider [phone] Sameera Jolley Admitting Unavailable Sameera Jolley Attending Unavailable Justo Cameron Primary Care Unavailable Tawanda Murdock Admitting Unavail able Tawanda Murdock Attending Unavail able Justo Cameron Primary Care Unavailable Sophia Woo Admitting Unavailable Sophia Woo Attending Unavailable Hussein Talavera Admitting Unavailable Hussein Talavera Attending Unavailable Justo Cameron Primary Care Unavailable Hussein Talavera Admitting Unavailable Hussein Talavera Attending Unavailable Justo Cameron Primary Care Unavailable Emilia Pro Admitting Unavailable Emilia Pro Attending Unavailable Justo Cameron Primary Care Unavailable Immanuel Burk Consulting Unavailable Frantz Weinstein Admitting UnavailMere Del Castillo Attending Unavailable Justo Cameron Primary Care Unavailable Mikaela Torrez Consulting Unavailable Titi Cuevas Consulting Unavailable Madelin Rivers Consulting Unavailable Naun Blank Jr Consulting UnavailArtis Luther Consulting Unavaila ble Hussein Talavera Admitting Unavailable Hussein Talavera Attending Unavailable Justo Cameron Primary Care Unavailable RAFFI LOPEZ Attending Unavailable RAFFI LOPEZ Attending Unavailable JUSTO CAMERON Attending Unavailable RAFFI LOPEZ Attending Unavailable JUSTO CAMERON Attending Unavailable RAFFI LOPEZ Attending Unavailable HI FOSTER Attending Unavailable RAFFI LOPEZ Attending Unavailable JUSTO CAMERON Attending Unavailable LUNA ESPINAL Attending Unavailable JUSTO CAMERON Referring Unavailable LUNA ESPINAL Attending Unavailable JUSTO CAMERON Referring Unavailable Allergies Allergy Classification Reported Allergen(s) Allergy Type Date of Onset Reaction(s) Facility (20 sources) Penicillins; Translations: [PENICILLINS] Drug allergy (disorder) 1 AOF, Swelling, rash [facility] Repository (19 sources) Penicillins; Translations: [Penicillins] Allergy to drug (finding) Rash, Swelling [facility] y 250 DO Work Phone: (20 sources) levoFLOXacin; Translations: [levofloxacin] Drug Allergy 2 Rash [facility] (17 sources) Amoxicillin Drug Allergy 4 Unknown [facility] (17 sources) Penicillin V Drug Allergy 4 Unknown [facility] (13 sources) Angiotensin Converting Enzyme (Edilma) Inhibitors; Translations: [EDILMA Inhibitors] Allergy to drug (finding) 3 Other [facility] 3 Repository (20 sources) Penicillins Drug Allergy 4 Rash [facility] (2 sources) Angiotensin-conv erting enzyme inhibitor agent Drug Intolerance [address] [facility] (2 sources) Penicillins Drug Allergy 3 Rash, Swelling [facility] Work Phone: (20 sources) Angiotensin-conv erting enzyme inhibitor agent Drug Intolerance 3 Other [facility] (1 source) levoFLOXacin Drug Allergy 5 [facility] Repository (1 source) Penicillins Drug allergy (disorder) 5 [facility] Repository Medications Current Medications Medication Drug Class(es) Dates Sig (Normalized) Sig (Original) amiodarone hydrochloride 200 mg oral tablet (20 sources) Antiarrhythmic Start: 02-10-2022 take 1 tablet by mouth once daily in the evening Amiodarone 200 mg Tablet Active 200 MG PO Every evening February 10, 2022 12:00am Start: 12-31-2021 End: 01-10-2022 take 1 tablet by mouth once daily Amiodarone 200 mg Tablet Discontinued 200 MG PO Daily January 10, 2022 12:00am January 10, 2022 12:52pm ascorbic acid 500 mg oral tablet (20 sources) Vitamin C Start: 04-24-2021 take 1 tablet by mouth once daily Ascorbic Acid (Vitamin C) (Vitamin C) 500 mg Tablet Active 500 MG PO Daily April 24, 2021 10:23am Start: 04-24-2021 take 2 tablets by mo moh once daily Ascorbic Acid (Vitamin C) (Vitamin C) 500 mg Tablet Active 1000 MG PO Daily April 24, 2021 12:00am Start: 04-24-2021 Ascorbic Acid (Vitamin C) (Vitamin C) 500 mg Tablet Active 100 MG PO Daily April 24, 2021 12:00am take 1 tablet by mouth once jennifer y ascorbic acid (Vitamin C) 1,000 mg tablet Take 1 tablet (1,000 mg) by mouth once daily. 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 Do all this for 5 days. Aware of PCN allergy, please prescribe anyway.. 10 capsule 03/24/2024 03/29/2024 Active cholecalciferol 0.025 mg oral capsule (16 sources) Vitamin D Start: 09-17-2023 take 1 capsule by mouth once daily Cholecalciferol (Vitamin D3) (Vitamin D3) 25 mcg (1,000 unit) capsule Active 25 MCG PO Daily September 17, 2023 1:00am take 1 tablet by mouth once jennifer y cholecalciferol (Vitamin D3) 25 MCG (1000 UT) tablet Take 1 tablet (1,000 Units) by mouth once daily. Active clopidogrel 75 mg oral tablet (20 sources) P2Y12 Platelet Inhibitor Start: 04-24-2021 End: 02-04-2025 take 1 tablet by mouth once daily clopidogrel (Plavix) 75 MG tablet Indications: Atherosclerotic heart disease of [place] coronary artery with other forms of angina pectoris (CMS/HCC) TAKE 1 TABLET BY MOUTH DAILY 90 tablet 3 11/16/2024 Active dicyclomine hydrochloride 20 mg oral tablet (20 sources) Anticholinergic Start: 04-24-2021 take 20 mg by mouth four times daily Dicyclomine Active 20 MG PO Four times daily April 24, 2021 10:18am Start: 04-24-2021 End: 04-22-2024 take 1 tablet by mouth twice daily Dicyclomine 20 mg Tablet Discontinued 20 MG PO Twice daily April 24, 2021 12:00am December 09, 2023 9:10am docusate sodium 100 mg oral capsule (15 sources) Start: 05-05-2024 End: 07-28-2024 take 1 capsule by mouth once daily as needed Docusate Sodium 100 mg capsule Active 100 MG PO Daily as needed July 28, 2024 11:00am Start: 02-09-2024 End: 05-05-2024 take 1 capsule by mouth twice daily Docusate Sodium 100 mg Capsule Discontinued 100 MG PO Twice daily 0 February 09, 2024 12:00am May 05, 2024 2:35pm doxepin 3 mg oral tablet (3 sources) Tricyclic Antidepressant Start: 12-16-2024 take 1 tablet by mouth at bedtime doxepin (Silenor) 3 MG tablet Indications: Primary insomnia Take 1 tablet (3 mg) by mouth at bedtime 30 tablet 3 12/16/2024 Active Start: 12-16-2024 take 1 tablet by siri th at bedtime doxepin (Silenor) 3 MG tablet Indications: Primary insomnia Take 1 tablet (3 mg) by mouth at bedtime 30 tablet 3 12/16/2024 Active furosemide 40 mg oral tablet (20 sources) Loop Diuretic Start: 07-28-2024 take 1 tablet by mouth three times daily Furosemide 40 mg tablet Active 40 MG PO Three times daily July 28, 2024 11:01am Start: 06-15-2024 End: 07-28-2024 take 1 tablet by mouth twice daily Furosemide 40 mg tablet Discontinued 0 .ROUTE .COMPLEX 180 June 15, 2024 9:07pm July 28, 2024 11:02am TAKE 1 TABLET BY MOUTH TWICE DAILY Start: 05-28-2024 End: 06-15-2024 take 1 tablet by mouth twice daily Furosemide (Lasix) 40 mg tablet Discontinued 40 MG PO Twice daily 60 May 28, 2024 2:48pm June 15, 2024 9:07pm Start: 05-05-2024 End: 05-28-2024 take 1 tablet by mouth three times daily Furosemide (Lasix) 40 mg tablet Discontinued 40 MG PO Three times daily May 05, 2024 2:32pm May 28, 2024 2:48pm Start: 02-03-2024 End: 05-05-2024 take 2 tablets by mouth twice daily Furosemide (Lasix) 40 mg tablet Discontinued 80 MG PO Twice daily February 03, 2024 12:00am May 05, 2024 2:35pm Start: 09-09-2023 End: 02-03-2024 take 1 tablet by mouth twice daily Furosemide (Lasix) 40 mg tablet Discontinued 40 MG PO Twice daily 180 January 02, 2024 10:55am February 03, 2024 7:52pm Start: 03-06-2022 take 1 tablet by siri th every twenty-four hours Lasix 40 MG 1 tablet Orally Once a day for 90 day(s) Feb, Active End: 04-22-2024 take 1 tablet by mouth twice daily furosemide (Lasix) 80 mg tablet Take 1 tablet (80 mg) by mouth 2 times a day. 04/22/2024 Discontinued (Dose adjustment) Lasix TABS TAKE 1 TABLET DAILY. - unsure of mg Quantity: 0 Refills: 0 Ordered: 10-Apr-2022 DO Active glyBURIDE 1.25 mg oral tablet (20 sources) Sulfonylurea Start: 04-24-2021 End: 02-04-2025 glyBURIDE (Diabeta) 1.25 MG tablet Indications: Type 2 diabetes mellitus with stage 4 chronic kidney disease, without long-term current use of insulin (CMS/HCC) TAKE 1 TABLET BY MOUTH IN THE MORNING WITH MEALS 90 tablet 3 11/16/2024 Active glyburide 1 tab Oral Active 24 hr isosorbide mononitrate 30 mg extended release oral tablet (20 sources) Nitrate Vasodilator Start: 07-02-2023 End: 08-20-2024 take 1 tablet by mouth every twenty-four hours in the morning isosorbide mononitrate ER (Imdur) 30 MG 24 hr tablet Indications: Atherosclerotic heart disease of [place] coronary artery with other forms of angina pectoris (CMS/HCC) Take 1 tablet (30 mg) by mouth in the morning. 90 tablet 3 08/21/2023 08/20/2024 Active Start: 01-10-2022 take 60 mg by mouth once daily Isosorbide Mononitrate Active 60 MG PO Daily January 10, 2022 12:59pm Start: 04-26-2021 End: 10-01-2023 take 1 tablet by mouth once daily in the morning, then take 1 tablet by mouth every twenty-four hours Isosorbide Mononitrate 30 mg tablet extended release 24 hr Discontinued 30 MG PO Every morning January 10, 2022 12:59pm October 01, 2023 7:13am take 1 tablet by siri th every twenty-four hours Isosorbide Mononitrate ER 60 MG 1 tablet in the morning Orally Once a day Active levothyroxine sodium 0.1 mg oral tablet (20 sources) l-Thyroxine Start: 04-24-2021 End: 02-04-2025 take 1 tablet by mouth before mealtime levothyroxine (Synthroid, Levoxyl) 100 MCG tablet Indications: Acquired hypothyroidism (CMS/HCC) TAKE 1 TABLET BY MOUTH IN THE MORNING TAKE BEFORE A MEAL 90 tablet 3 11/16/2024 Active take 1 tablet by siri th once daily in the morning Synthroid 100 MCG 1 tablet on an empty stomach in the morning Orally Once a day Active Low-Dose Aspirin 81 MG (15 sources) take 1 tablet by mouth once jennifer y Low-Dose Aspirin 81 MG 1 tablet Orally Once a day Active melatonin 3 mg oral tablet (11 sources) Start: 02-09-2024 End: 07-28-2024 take 1 tablet by mouth once daily at bedtime Melatonin 3 mg tablet Active 3 MG PO Daily at bedtime July 28, 2024 11:02am 24 hr metoprolol succinate 50 mg extended release oral tablet (20 sources) beta-Adrenergic Gavi Start: 09-18-2023 take 1 tablet by mouth once daily Metoprolol Succinate 50 mg tablet extended release 24 hr Active 50 MG PO Daily November 03, 2023 12:00am Start: 09-17-2023 End: 11-03-2023 take 2 tablets by mouth once daily at bedtime Metoprolol Succinate 100 mg Tablet Extended Release 24 Hr Discontinued 50 MG PO Daily at bedtime September 17, 2023 1:00am November 03, 2023 10:53am Start: 09-17-2023 End: 11-03-2023 take 50 mg by mouth once daily at bedtime Metoprolol Succinate Discontinued 50 MG PO Daily at bedtime September 17, 2023 1:00am November 03, 2023 10:53am Start: 08-21-2023 End: 08-20-2024 take 1 tablet by mouth every twenty-four hours in the morning metoprolol succinate XL (Toprol-XL) 100 MG 24 hr tablet Indications: Atherosclerotic heart disease of [place] coronary artery with other forms of angina pectoris (CMS/HCC) Take 1 tablet (100 mg) by mouth in the morning. Do not crush or chew.. 90 tablet 3 08/21/2023 03/24/2024 Discontinued (Dose adjustment) Start: 02-15-2022 End: 09-17-2023 take 1 tablet by mouth once daily Metoprolol Succinate 100 mg Tablet Extended Release 24 Hr Discontinued 100 MG PO Daily February 15, 2022 12:00am September 17, 2023 3:06pm Start: 04-24-2021 take 100 mg by mouth once daily Metoprolol Succinate Active 100 MG PO Daily April 24, 2021 10:18am Start: 04-24-2021 End: 02-15-2022 take 1 tablet by mouth once daily Metoprolol Succinate 25 mg Tablet Extended Release 24 Hr Discontinued 25 MG PO Daily April 24, 2021 12:00am February 15, 2022 3:31pm take 1 tablet by siri th every twelve hours Metoprolol Tartrate 100 MG 1 tablet with food Orally Twice a day Active nitroglycerin 0.4 mg sublingual tablet (20 sources) Nitrate Vasodilator Start: 02-03-2024 Nitroglyce rin 0.4 mg tablet, sublingual Active 0.4 MG SUBLINGUAL every 5 to 15 minutes as needed for chest pain February 03, 2024 12:00am do not exceed 3 doses per episode Start: 01-10-2022 End: 01-10-2022 Nitroglycerin 0.4 mg Tablet, Sublingual Discontinued 0.4 MG SUBLINGUAL every 5 to 15 minutes as needed for Chest Pain January 10, 2022 12:00am January 10, 2022 12:57pm nitroglycerin (N itrostat) 0.[address] under the tongue. Active omeprazole 40 mg delayed release oral capsule (20 sources) Proton Pump Inhibitor Start: 03-16-2024 omeprazole (PriLOSEC ) [address] capsule Indications: Gastroesophageal reflux disease, unspecified whether esophagitis present Take one capsule daily 100 capsule 3 03/16/2024 Active Start: 02-10-2022 End: 08-21-2023 take 1 capsule by mouth once daily in the evening Omeprazole 40 mg Capsule,Delayed Release(Dr/Ec) Active 40 MG PO Every evening February 10, 2022 12:00am Start: 04-24-2021 End: 01-10-2022 take 1 capsule by mouth once daily Omeprazole 40 mg Capsule,Delayed Release(Dr/Ec) Discontinued 40 MG PO Daily April 24, 2021 12:00am January 10, 2022 12:57pm traMADol hydrochloride 50 mg oral tablet (16 sources) Opioid Agonist Start: 11-23-2024 End: 11-30-2024 take 1-2 tablets by mouth every eight hours for pain traMADol (Ultram) 50 MG tablet Indications: Chronic hip pain, left , 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 Take 1-2 tablets (50-100 mg) by mouth every 8 (eight) hours if needed for severe pain for up to 7 days 42 tablet 11/23/2024 11/30/2024 Active Start: 07-28-2024 End: 07-28-2024 take 1 tablet by mouth once daily as needed Tramadol 50 mg tablet Discontinued 50 MG PO Daily as needed July 28, 2024 1:00am July 28, 2024 11:05am Start: 07-21-2024 take 1 tablet by siri th every eight hours as needed Tramadol 50 mg tablet Active 50 MG PO Every 8 hours as needed July 28, 2024 11:04am Vitamin C 100 MG (13 sources) take 1 tablet by mouth once jennifer y Vitamin C 100 MG 1 tablet Orally Once a day Active Completed/Discontinued Medications Medication Drug Class(es) Dates Sig (Normalized) Sig (Original) [id number] actuat albuterol 0.09 mg/actuat metered dose inhaler (20 sources) beta2-Adrenergic Agonist Start: 02-15-2022 End: 09-17-2023 Albuterol Sulfate 90 mcg/actuation HFA aerosol inhaler Discontinued 1 INH INHALATION EVERY 4-6 HOURS as needed for shortness of breath or wheezing 6.7 February 15, 2022 12:00am September 17, 2023 3:04pm End: 04-22-2024 take 2 puff(s) by inhalation every four hours albuterol 90 mcg/actuation inhaler Inhale 2 puffs every 4 hours if needed. 04/22/2024 Discontinued (Discontinued by another clinician) take 2 puff(s) by in halation every four hours as needed Albuterol Sulfate HFA 108 (90 Base) MCG/ACT 2 puff as needed Inhalation every 4 hrs Not-Taking take 2 puff(s) by in halation every four hours as needed Albuterol Sulfate HFA 108 (90 Base) MCG/ACT Inhalation Aerosol Solution INHALE 2 PUFFS EVERY 4 HOURS NEEDED Quantity: 0 Refills: 0 Ordered: 14-May-2021 DO Active amLODIPine 10 mg oral tablet (20 sources) Dihydropyridine Calcium Channel Gavi Start: 02-09-2024 End: 05-05-2024 take 1 tablet by mouth once daily Amlodipine 10 mg Tablet Discontinued 10 MG PO Daily 0 February 09, 2024 12:00am May 05, 2024 2:31pm Start: 01-15-2022 take 1 tablet by siri th once daily amLODIPine Besylate 10 MG Oral Tablet TAKE 1 TABLET DAILY. Quantity: 90 Refills: 3 Ordered: 15-Jan-2022 Tawanda Pro DO Start : 15-Jan-2022 Active dose increased Start: 04-24-2021 take 5 mg by mouth once daily Amlodipine Active 5 MG PO Daily April 24, 2021 10:18am Start: 04-24-2021 End: 09-17-2023 take 2 tablets by mouth once daily Amlodipine 5 mg Tablet Discontinued 10 MG PO Daily April 24, 2021 12:00am September 17, 2023 3:04pm On Hold: until seen by nephrology Start: 04-24-2021 End: 09-17-2023 take 10 mg by mouth once daily Amlodipine Discontinued 10 MG PO Daily April 24, 2021 12:00am September 17, 2023 3:04pm aspirin 325 mg delayed release oral tablet (20 sources) Platelet Aggregation Inhibitor, Nonsteroidal Anti-inflammatory Drug Start: 01-10-2022 End: 02-10-2022 take 1 tablet by mouth once daily Aspirin (Ecotrin) 325 mg Tablet,Delayed Release (Dr/Ec) Discontinued 325 MG PO Daily January 10, 2022 12:00am February 10, 2022 1:42pm Start: 04-24-2021 take 1 tablet by siri th once daily Aspirin 81 mg Tablet,Delayed Release (Dr/Ec) Active 81 MG PO Daily April 24, 2021 12:00am take 1 tablet by siri th once daily Ecotrin 325 MG 1 tablet Orally Once a day Active chlorthalidone 25 mg oral tablet (20 sources) Thiazide-like Diuretic Start: 01-10-2022 End: 02-10-2022 take 1 tablet by mouth once daily Chlorthalidone 25 mg Tablet Discontinued 25 MG PO Daily January 10, 2022 12:00am February 10, 2022 1:46pm cilostazol 100 mg oral tablet (20 sources) Phosphodiesterase 3 Inhibitor Start: 02-10-2022 End: 02-15-2022 take 1 tablet by mouth twice daily Cilostazol 100 mg Tablet Discontinued 100 MG PO Twice daily February 10, 2022 12:00am February 15, 2022 3:31pm Start: 04-24-2021 End: 01-10-2022 take 1 tablet by mouth twice daily Cilostazol 100 mg Tablet Discontinued 100 MG PO Twice daily April 24, 2021 12:00am January 10, 2022 12:56pm diclofenac sodium 75 mg delayed release oral tablet (20 sources) Nonsteroidal Anti-inflammatory Drug Start: 01-10-2022 End: 02-10-2022 take 1 tablet by mouth once daily Diclofenac Sodium 75 mg Tablet,Delayed Release (Dr/Ec) Discontinued 75 MG PO Daily January 10, 2022 12:00am February 10, 2022 1:44pm take 1 tablet by siri th every twelve hours Diclofenac Sodium 75 MG 1 tablet with fo od or milk Orally Twice a day Active diphenhydrAMINE hydrochloride 25 mg oral capsule (20 sources) Histamine-1 Receptor Antagonist Start: 02-10-2022 End: 02-15-2022 take 1 capsule by mouth twice daily Diphenhydramine Hcl (Benadryl) 25 mg Capsule Discontinued 25 MG PO Twice daily February 10, 2022 12:00am February 15, 2022 3:31pm Start: 04-24-2021 take 50 mg by mouth once daily at bedtime Diphenhydramine Hcl Active 50 MG PO Daily at bedtime April 24, 2021 10:23am Start: 04-24-2021 End: 01-10-2022 take 1 capsule by mouth twice daily Diphenhydramine Hcl 25 mg Capsule Discontinued 25 MG PO Twice daily April 24, 2021 12:00am January 10, 2022 12:56pm doxycycline hyclate 100 mg oral tablet (20 sources) Tetracycline-class Drug Start: 02-15-2022 End: 09-09-2023 take 1 tablet by mouth twice daily Doxycycline Hyclate 100 mg Tablet Discontinued 100 MG PO Twice daily 4 2 February 15, 2022 12:00am September 09, 2023 11:37am ergocalciferol 0.05 mg oral tablet (16 sources) Provitamin D2 Compound Start: 09-09-2023 End: 09-17-2023 take 1 tablet by mouth once daily Ergocalciferol (Vitamin D2) 50 mcg (2,000 unit) tablet Discontinued 50 MCG PO Daily September 09, 2023 1:00am September 17, 2023 3:05pm FreeTextSi tablet Orally Once a day; Note: Source Status: Start; Refills: 1; Qty: 90 Tablet; Provider: Amna Cortes Start: 08-05-2023 take 1 tablet by siri th once daily Ergocalciferol 50 MCG (2000 UT) 1 tablet Orally Once a day for 90 days Jul, Active ferrous sulfate 324 mg delayed release oral tablet (8 sources) Start: 02-09-2024 End: 05-05-2024 take 1 tablet by mouth twice daily Ferrous Sulfate 324 mg (65 mg iron) Tablet,Delayed Release (Dr/Ec) Discontinued 324 MG PO Twice daily 0 February 09, 2024 12:00am May 05, 2024 2:34pm lisinopril 20 mg oral tablet (20 sources) Angiotensin Converting Enzyme Inhibitor Start: 04-24-2021 End: 02-10-2022 take 1 tablet by mouth once daily Lisinopril 20 mg Tablet Discontinued 20 MG PO Daily April 24, 2021 12:00am February 10, 2022 1:45pm 24 hr metFORMIN hydrochloride 500 mg extended release oral tablet (20 sources) Biguanide Start: 04-24-2021 End: 01-10-2022 take 1 tablet by mouth once daily in the evening Metformin 500 mg Tablet Extended Release 24 Hr Discontinued 500 MG PO Every evening April 24, 2021 12:00am January 10, 2022 8:58am take 2 tablets by mouth once glenn ly metFORMIN HCl - 500 MG Oral Tablet TAKE 2 TABLET Daily Quantity: 0 Refills: 0 Ordered: 14-May-2021 DO Active Multi Vitamin Oral Tablet (9 sources) take 1 tablet by mouth once daily Multi Vitamin Oral Tablet TAKE 1 TABLET DAILY. Quantity: 0 Refills: 0 Ordered: 14-May-2021 DO Active Rxwpwlubknuj-Intuciho-S utein (Multivitamin 50 Plus) Tablet (20 sources) Start: 04-24-2021 End: 01-10-2022 Ltbptfxgeyal-Pfknrcav-Skcg in (Multivitamin 50 Plus) Tablet Discontinued 1 TAB PO Daily April 24, 2021 10:23am January 10, 2022 9:03am Start: 04-24-2021 Multivitamin-M inerals-Lutein (Multivitamin 50 Plus) Tablet Active 1 TAB PO Daily April 24, 2021 10:23am Start: 04-24-2021 End: 01-10-2022 Zubvpxvxjjmw-Uuiwbjme-Dzjojg (Multivitamin 50 Plus) Tablet Discontinued 1 TAB PO Daily April 23, 2021 11:00pm January 10, 2022 8:03am Start: 04-24-2021 End: 01-10-2022 Jdalbspcbcap-Qvizvrai-Vlcbkk (Multivitamin 50 Plus) Tablet Discontinued 1 TAB PO Daily April 24, 2021 12:00am Shruti 30th, 2022 9:03am oxyCODONE hydrochloride 5 mg oral tablet (8 sources) Opioid Agonist Start: 02-10-2024 End: 05-05-2024 take 1 tablet by mouth every six hours as needed for pain Oxycodone 5 mg Tablet Discontinued 5 MG PO Every 6 hours as needed for Pain Scale 4 - 7 12 3 February 10, 2024 May 05, 2024 2:34pm polyethylene glycol 3350 59517 mg powder for oral solution (8 sources) Osmotic Laxative Start: 02-09-2024 End: 05-05-2024 Polyethylene Glycol 3350 (Healthylax) 17 gram Powder In Packet Discontinued 17 GM PO Daily February 09, 2024 12:00am May 05, 2024 2:34pm predniSONE 20 mg oral tablet (20 sources) Start: 02-15-2022 End: 09-09-2023 take 2 tablets by mouth once daily, then take 1 tablet by mouth once daily, then take 10 mg by mouth once daily Prednisone 20 mg tablet Discontinued 20 MG PO Daily 03 22February 15, 2022 12:00am September 09, 2023 11:38am 40mg daily for 3 days then 20mg daily for 3 days then 10mg daily for 3 days Start: 02-15-2022 End: 09-09-2023 take 40 mg by mouth once daily, then take 20 mg by mouth once daily, then take 10 mg by mouth once daily Prednisone Discontinued 20 MG PO Daily 03 22February 15, 2022 12:00am September 09, 2023 11:38am 40mg daily for 3 days then 20mg daily for 3 days then 10mg daily for 3 days rosuvastatin calcium 40 mg oral tablet (7 sources) HMG-CoA Reductase Inhibitor take 1 tablet by mouth every twenty-four hours Crestor 40 MG 1 tablet Orally Once a day Not-Taking Sennosides (Senna Laxative) 8.6 mg Tablet (8 sources) Start: 02-09-20 End: 05-05-20 Sennosides (Senna Laxative) 8.6 mg Tablet Discontinued 17.2 MG PO Bedtime February 08, 2024 11:00pm May 05, 2024 1:34pm Start: 02-09-2024 End: 05-05-2024 Sennosides (Senna Laxative) 8.6 mg Tablet Discontinued 17.2 MG PO Bedtime 0 February 09, 2024 12:00am May 05, 2024 2:34pm Start: 02-09-2024 Sennosides (Se nna Laxative) 8.6 mg Tablet Active 17.2 MG PO Bedtime 0 February 09, 2024 12:00am simvastatin 40 mg oral tablet (7 sources) HMG-CoA Reductase Inhibitor take 1 tablet by mouth every twenty-four hours Simvastatin 40 MG 1 tablet in the evening Orally Once a day Not-Taking Triamcinolone (13 sources) Corticosteroid Start: 017 KENALOG - 10 mg Jun, 60 mg zolpidem tartrate 10 mg oral tablet (2 sources) gamma-Aminobutyric Acid-ergic Agonist take 1 tablet by mouth at bedtime Zolpidem Tartrate 10 MG Oral Tablet TAKE 1 TABLET AT BEDTIME. Quantity: 0 Refills: 0 Ordered: 14-May-2021 DO Active Problems Active Problems Problem Classification Problem Date Documented Date Episodic/Chronic Acute and unspecified renal failure (20 sources) Injury of kidney; Translations: [Acute kidney failure, unspecified] 02-11-2022 Episodic Administrative/social admission (18 sources) Patient encounter status; Translations: [Other specified counseling] Onset: 02-03-2024 08-21-2023 Episodic Cardiac dysrhythmias (20 sources) Bradycardia, unspecified; Translations: [Irregular heart beat] Onset: 04-11-2017 10-06-2023 Chronic Cardiac dysrhythmias (20 sources) Sinus bradycardia; Translations: [Other specified cardiac dysrhythmias] Onset: 05-30-2023 05-30-2023 Episodic Chronic kidney disease (20 sources) Chronic kidney disease, unspecified; Translations: [Chronic kidney disease stage 4] Onset: 04-11-2017 Resolved: 03-06-2022 Chronic Chronic obstructive pulmonary disease and bronchiectasis (20 sources) Mild chronic obstructive pulmonary disease; Translations: [Chronic obstructive pulmonary disease, unspecified] Onset: 02-01-2011 08-21-2023 Chronic Complication of device; implant or graft (15 sources) Arteriovenous fistula stenosis; Translations: [Stenosis of other vascular prosthetic devices, implants and grafts, initial encounter] Onset: 11-13-2023 11-03-2023 Chronic Conditions associated with dizziness or vertigo (13 sources) Dizziness; Translations: [Dizziness and giddiness] Onset: 10-06-2023 10-06-2023 Episodic Conduction disorders (20 sources) Presence of cardiac pacemaker; Translations: [Cardiac pacemaker in situ] Onset: 11-13-2017 08-21-2023 Chronic Congestive heart failure; nonhypertensive (20 sources) Unspecified diastolic (congestive) heart failure; Translations: [Congestive heart failure] Onset: 04-11-2017 02-10-2022 Chronic Coronary atherosclerosis and other heart disease (20 sources) Atherosclerotic heart disease of [place] coronary artery without angina pectoris; Translations: [Old myocardial infarction] Onset: 02-01-2011 02-10-2022 Chronic Coronary atherosclerosis and other heart disease (6 sources) Presence of coronary angioplasty implant and graft; Translations: [Presence of aortocoronary bypass graft] Onset: 04-11-2017 Episodic Deficiency and other anemia (8 sources) Anemia; Translations: [Anemia in chronic kidney disease] Chronic Deficiency and other anemia (3 sources) Anemia in chronic kidney disease Chronic Diabetes mellitus with complications (20 sources) Type 2 diabetes mellitus with diabetic chronic kidney disease; Translations: [Type 2 diabetes mellitus] Onset: 11-13-2017 08-21-2023 Chronic Diabetes mellitus without complication (20 sources) Diabetes mellitus; Translations: [Diabetes mellitus without mention of complication, type II or unspecified type, not stated as uncontrolled] Onset: 05-30-2023 02-10-2022 Chronic Disorders of lipid metabolism (20 sources) Hyperlipidemia, unspecified; Translations: [Hyperlipidemia] Onset: 04-11-2017 02-10-2022 Chronic Diverticulosis and diverticulitis (20 sources) Diverticulosis of colon; Translations: [Diverticulosis of large intestine without perforation or abscess without bleeding] Onset: 02-01-2011 08-21-2023 Chronic Esophageal disorders (20 sources) Gastro-esophageal reflux disease without esophagitis; Translations: [Gastroesophageal reflux disease] Onset: 04-11-2017 02-10-2022 Chronic Essential hypertension (20 sources) Benign essential hypertension; Translations: [Benign essential hypertension] Onset: 05-30-2023 02-10-2022 Chronic Hyperplasia of prostate (20 sources) Benign prostatic hyperplasia; Translations: [Benign prostatic hyperplasia without lower urinary tract symptoms] Onset: 02-01-2011 08-21-2023 Chronic Hypertension with complications and secondary hypertension (20 sources) Hypertensive chronic kidney disease with stage 1 through stage 4 chronic kidney disease, or unspecified chronic kidney disease; Translations: [Hypertensive renal disease] Onset: 04-11-2017 10-26-2023 Chronic Miscellaneous mental health disorders (2 sources) Primary insomnia; Translations: [Primary insomnia] 12-16-2024 Chronic Mycoses (7 sources) Pain in toe; Translations: [Tinea unguium] 04-15-2024 Episodic Nonspecific chest pain (20 sources) Other chest pain; Translations: [Chest pain] Onset: 11-13-2017 02-10-2022 Episodic Occlusion or stenosis of precerebral arteries (20 sources) Carotid artery stenosis; Translations: [Occlusion and stenosis of carotid artery without mention of cerebral infarction] Onset: 05-30-2023 Resolved: 04-22-2024 08-21-2023 Chronic Osteoarthritis (20 sources) Degenerative joint disease involving multiple joints; Translations: [Polyosteoarthritis, unspecified] Onset: 02-01-2011 08-21-2023 Chronic Other aftercare (12 sources) Drug therapy finding; Translations: [Long-term (current) use of other medications] Episodic Other aftercare (4 sources) Taking high risk medication; Translations: [Other senior living (current) drug therapy] Onset: 10-06-2023 10-06-2023 Episodic Other circulatory disease (1 source) Peripheral vascular angioplasty status with implants and grafts; Translations: [PERIPHERAL VASCULAR ANGIOPLASTY STATUS W IMPLANTS AND GRAFTS] Onset: 04-11-2017 Chronic Other circulatory disease (2 sources) Acquired arteriovenous fistula aneurysm; Translations: [Arteriovenous fistula, acquired] Chronic Other circulatory disease (9 sources) Arteriovenous fistula; Translations: [Arteriovenous fistula, acquired] 12-10-2023 Chronic Other circulatory disease (2 sources) Arteriovenous fistula, acquired; Translations: [Arteriovenous fistula, acquired] 12-09-2023 Chronic Other connective tissue disease (2 sources) Olecranon bursitis, left elbow; Translations: [Olecranon bursitis, left elbow] Onset: 08-08-2022 Episodic Other diseases of veins and lymphatics (7 sources) Vascular insufficiency; Translations: [Venous insufficiency (chronic) (peripheral)] 04-12-2024 Episodic Other endocrine disorders (14 sources) Hyperparathyroidism; Translations: [Hyperparathyroidism, unspecified] 10-26-2023 Chronic Other endocrine disorders (8 sources) Hyperparathyroidism, unspecified; Translations: [Hyperparathyroidism, unspecified] Chronic Other inflammatory condition of skin (2 sources) Rosacea; Translations: [Other rosacea] 05-10-2024 Chronic Other injuries and conditions due to external causes (2 sources) Personal history of (healed) traumatic fracture; Translations: [Personal history of traumatic fracture] 05-05-2024 Episodic Other lower respiratory disease (7 sources) Hypoxemia; Translations: [Hypoxemia] Onset: 02-20-2022 Episodic Other lower respiratory disease (20 sources) Hypoxia; Translations: [Hypoxemia] 02-14-2022 Episodic Other nervous system disorders (8 sources) Postoperative pain ; Translations: [Other acute postprocedural pain] 02-05-2024 Episodic Other non-traumatic joint disorders (10 sources) Hip pain; Translations: [Pain in left hip] 02-03-2024 Episodic Other nutritional; endocrine; and metabolic disorders (2 sources) Body mass index (BMI) 36.0-36.9, adult; Translations: [Body mass index (BMI) 36.0-36.9, adult] Onset: 10-06-2023 Chronic Other nutritional; endocrine; and metabolic disorders (1 source) Body mass index 25-29 - overweight; Translations: [Body Mass Index 27.0-27.9, adult] Episodic Other nutritional; endocrine; and metabolic disorders (1 source) Overweight; Translations: [Overweight] Episodic Other nutritional; endocrine; and metabolic disorders (20 sources) Overweight in adulthood with body mass index of 25 or more but less than 30; Translations: [Overweight] Onset: 04-22-2024 04-22-2024 Episodic Other nutritional; endocrine; and metabolic disorders (8 sources) Hyperuricemia without signs of inflammatory arthritis and tophaceous disease; Translations: [Other abnormal blood chemistry] Episodic Other nutritional; endocrine; and metabolic disorders (12 sources) Hyperuricemia; Translations: [Hyperuricemia without signs of inflammatory arthritis and tophaceous disease] 10-26-2023 Episodic Other nutritional; endocrine; and metabolic disorders (2 sources) Body mass index (BMI) 26.0-26.9, adult; Translations: [Body mass index (BMI) 26.0-26.9, adult] Onset: 04-22-2024 Episodic Other nutritional; endocrine; and metabolic disorders (2 sources) Weight decreased; Translations: [Abnormal weight loss] 12-16-2024 Episodic Other skin disorders (2 sources) Actinic keratosis; Translations: [Actinic keratosis] 05-10-2024 Episodic Other skin disorders (2 sources) Epidermoid cyst; Translations: [Epidermal cyst] 05-10-2024 Episodic Other skin disorders (2 sources) Lentiginosis; Translations: [Other melanin hyperpigmentation] 05-10-2024 Episodic Other skin disorders (4 sources) Fissure in skin; Translations: [Changes in skin texture] 09-09-2024 Episodic Paralysis (3 sources) Cauda equina syndrome; Translations: [Cauda equina syndrome] Onset: 12-16-2024 12-16-2024 Chronic Peripheral and visceral atherosclerosis (20 sources) Peripheral vascular disease, unspecified; Translations: [Atherosclerosis of aorta] Onset: 04-11-2017 Resolved: 02-05-2022 Chronic Pleurisy; pneumothorax; pulmonary collapse (1 source) Pleural effusion, not elsewhere classified; Translations: [PLEURAL EFFUSION NEC] Onset: 02-22-2022 Episodic Pneumonia (except that caused by tuberculosis or sexually transmitted disease) (1 source) Pneumonia, unspecified organism; Translations: [PNEUMONIA UNSPECIFIED ORGANISM] Onset: 02-22-2022 Episodic Respiratory failure; insufficiency; arrest (adult) (20 sources) Acute respiratory failure; Translations: [Acute respiratory failure with hypoxia] 02-11-2022 Episodic Screening or history of mental health and substance abuse (20 sources) Personal history of nicotine dependence; Translations: [Ex-smoker] Onset: 11-13-2017 Episodic Spondylosis; intervertebral disc disorders; other back problems (20 sources) Degeneration of lumbosacral intervertebral disc; Translations: [Other intervertebral disc degeneration, lumbosacral region] Onset: 02-01-2011 08-21-2023 Chronic Thyroid disorders (7 sources) Acquired hypothyroidism; Translations: [Hypothyroidism, unspecified] Onset: 12-16-2024 08-21-2023 Chronic Unclassified (2 sources) Unknown / UNK(Unknown) Onset: 04-11-2017 Unclassified (1 source) 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; Translations: [CORRECTION (CURRENT) USE OF ORAL HYPOGLYCEMIC DRUGS] Onset: 11-13-2017 Past or Other Problems Problem Classification Problem Date Documented Date Episodic/Chronic Abdominal hernia (20 sources) Hiatal hernia; Translations: [Diaphragmatic hernia without obstruction or gangrene] Onset: 02-01-2011 08-21-2023 Episodic Fracture of neck of femur (hip) (14 sources) Closed fracture of neck of femur; Translations: [Fracture of unspecified part of neck of left femur, initial encounter for closed fracture] Onset: 02-03-2024 02-03-2024 Episodic Other aftercare (2 sources) 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/antip latelets; Translations: [halfway (current) use of aspirin] Onset: 04-11-2017 Episodic Other aftercare (2 sources) Other senior living (current) drug therapy; Translations: [Other roasterman (current) drug therapy] Onset: 10-06-2023 Episodic Other circulatory disease (15 sources) H/O: angina pectoris; Translations: [Personal history of other diseases of circulatory system] Resolved: 11-05-2021 Episodic Other circulatory disease (4 sources) Orthostatic hypotension; Translations: [Orthostatic hypotension] Onset: 10-06-2023 10-06-2023 Episodic Other circulatory disease (1 source) Orthostatic hypotension; Translations: [Orthostatic hypotension] Onset: 10-06-2023 Episodic Other diseases of kidney and ureters (14 sources) Renal impairment; Translations: [Unspecified disorder of kidney and ureter] Onset: 05-30-2023 Resolved: 04-22-2024 05-30-2023 Episodic Other nervous system disorders (6 sources) Other acute postprocedural pain; Translations: [Other acute postoperative pain] Onset: 02-03-2024 02-10-2024 Episodic Other non-traumatic joint disorders (6 sources) Pain in left hip; Translations: [Pain in joint, pelvic region and thigh] Onset: 02-03-2024 02-10-2024 Episodic Other nutritional; endocrine; and metabolic disorders (3 sources) Body mass index 30+ - obesity; Translations: [Body mass index (BMI) 36.0-36.9, adult] Onset: 10-06-2023 Resolved: 04-22-2024 10-06-2023 Chronic Residual codes; unclassified (2 sources) Other specified postprocedural states Onset: 12-31-2021 Resolved: 02-05-2022 Episodic Residual codes; unclassified (1 source) Other specified health status; Translations: [Other specified health status] Onset: 02-03-2024 Episodic Unclassified (20 sources) Abnormal result of other cardiovascular function study; Translations: [Echocardiogram abnormal] Onset: 11-13-2017 10-06-2023 Episodic Unclassified (2 sources) Onset: 10-06-2023 10-06-2023 Urinary tract infections (2 sources) Acute cystitis; Translations: [Acute cystitis without hematuria] 03-24-2024 Episodic Results Test Name Value Interpretation Reference Range Facility Laboratory - Hematology and Cell countson 12-16-2024 HbA1c (Bld) [Mass fraction] 5.5 % [facility] No Panel Informationon 12-16 [facility] Aspartate Amino Transferaseo n 10-20-2024 AST [Catalytic activity/Vol] 28 U/L Normal 13-39 [facility] Comment on above: Performed By: #### G LULS #### Point of Care testing , Aspartate aminotransferase [ Enzymatic activity/volume] in Serum or PlasmaOrdered By: Emilia Pro on 10-20-2024 AST [Catalytic activity/Vol] Aspartate aminotransferase [Enzymatic activity/volume] in Serum or Plasma 13-39 [facility] Basic Metabolic Panelon Anion gap [Moles/Vol] 13.0 mmol/L Normal 6.0-15.0 [facility] Comment on above: Performed By: #### G LULS #### Point of Care testing , Calcium [Mass/Vol] 9.1 mg/dL Normal 8.6-10.3 [facility] Comment on above: Performed By: #### G LULS #### Point of Care testing , Chloride [Moles/Vol] 105 mmol/L Normal 98-107 [facility] Comment on above: Performed By: #### G LULS #### Point of Care testing , CO2 [Moles/Vol] 28.1 mmol/L Normal 21.0-31.0 [facility] Comment on above: Performed By: #### G LULS #### Point of Care testing , Creatinine [Mass/Vol] 2.94 mg/dL High 0.70-1.30 [facility] Comment on above: Performed By: #### G LULS #### Point of Care testing , Estimated GFR 20.473 mL/Min Normal [facility] Comment on above: Performed By: #### G LULS #### Point of Care testing , Glucose [Mass/Vol] 64 mg/dL Low 70-100 [facility] Comment on above: Result Comment: [place] Glucose Reference Range is dependent on time and content of last meal. Glucose of more than 200 mg/dL in a nonstressed, ambulatory subject supports the diagnosis of Diabetes Mellitus. ADA recommended reference range Performed By: #### G LULS #### Point of Care testing , Potassium [Moles/Vol] 4.1 mmol/L Normal 3.5-5.1 [facility] Comment on above: Performed By: #### G LULS #### Point of Care testing , Sodium [Moles/Vol] 142 mmol/L Normal 136-145 [facility] Comment on above: Performed By: #### G LULS #### Point of Care testing , Urea nitrogen [Mass/Vol] 38 mg/dL High 7-25 [facility] Comment on above: Performed By: #### G LULS #### Point of Care testing , Calcium [Mass/volume] in Ser um or PlasmaOrdered By: Emilia Pro on 10-20-2024 Calcium [Mass/Vol] Calcium [Mass/volume ] in Serum or Plasma 8.6-10.3 [facility] Carbon dioxide, total [Moles /volume] in Serum or PlasmaOrdered By: Emilia Pro on 10-20-2024 CO2 [Moles/Vol] Carbon dioxide, tota l [Moles/volume] in Serum or Plasma 21.0-31.0 [facility] Chloride [Moles/volume] in S jorge a or PlasmaOrdered By: Emilia Pro on 10-20-2024 Chloride [Moles/Vol] Chloride [Moles/vol ume] in Serum or Plasma 98-107 [facility] Creatinine [Mass/volume] in Serum or PlasmaOrdered By: Emilia Pro on 10-20-2024 Creatinine [Mass/Vol] Creatinine [Mass/v olume] in Serum or Plasma High 0.70-1.30 [facility] Glucose [Mass/volume] in Ser um or PlasmaOrdered By: Emilia Pro on 10-20-2024 Glucose [Mass/Vol] Glucose [Mass/volume ] in Serum or Plasma Low 70-100 [facility] Comment on above: ADA recommended refe rence rangeRandom Glucose Reference Range is dependent on time and content of last meal. Glucose of more than 200 mg/dL in a nonstressed, ambulatory subject supports the diagnosis of Diabetes Mellitus. No Panel InformationOrdered By: Emilia Pro on 10-20-2024 Estimated GFR (CKD-EPI) 20.473 mL/Min [facility] Creatinine Clearance (Chem N/A [facility] Potassium [Moles/volume] in Serum or PlasmaOrdered By: Emilia Pro on 10-20-2024 Potassium [Moles/Vol] Potassium [Moles/v olume] in Serum or Plasma 3.5-5.1 [facility] Serum or plasma anion gap de terminationOrdered By: Emilia Pro on 10-20-2024 Anion gap [Moles/Vol] Serum or plasma an ion gap determination 6.0-15.0 [facility] Sodium [Moles/volume] in Ser um or PlasmaOrdered By: Emilia Pro on 10-20-2024 Sodium [Moles/Vol] Sodium [Moles/volume ] in Serum or Plasma 136-145 [facility] Thyroid Stimulating Hormoneo n 10-20-2024 TSH Qn 2.57 m[IU]/L Normal 0.45-5.33 [facility] Comment on above: Result Comment: PERF ORMED BY: [facility] [address] [place] [address] PATHOLOGIST JEWELRY CASTING MODEL MAKER APPRENTICE MIRYAM RIVAS M.D. Performed By: #### G RAMIRO #### Point of Care testing , Thyrotropin [Units/volume] i n Serum or PlasmaOrdered By: Emilia Pro on 10-20-2024 TSH Qn Thyrotropin [Units/volume] in Serum or Plasma 0.45-5.33 [facility] Urea nitrogen [Mass/volume] in Serum or PlasmaOrdered By: Emilia Pro on 10-20-2024 Urea nitrogen [Mass/Vol] Urea nitrogen [Mass/volume] in Serum or Plasma [facility] 02-04 [facility] X-ray reportOrdered By: Richard Guaman on 10-20-2024 Study report [facility] [address] [place] [id number] XRay Report Signed Patient: Apolinar Norman MR#: [id number] : 1940 Acct:[id number] Age/Sex: 84 / M ADM Date: 5 Loc: RT Room: Type: REG CLI Attending Dr: Emilia Pro DO Copies to: Emilia Pro DO~ Ordering Provider: Emilia Pro DO Date of [...] PROCESS. Impression dictated by: Titi Guaman Jr., DVaniaOVania10/20/2024 10:16 AM Dictation Location: [place] [address] Transcribed By: [facility] 10/20/24 1016 Dictated By: Titi Guaman Jr, DO 10/20/24 1015 Signed By: 10/20/24 1016 [facility] XR chest 2V*on 10-20-2024 XR chest 2V* [facility] [address] [place] [id number] XRay Report Signed Patient: Apolinar Norman MR#: [id number] : 1940 Acct:[id number] Age/Sex: 84 / M ADM Date: 10/20/24 Loc: RT Room: Type: REG CLI Attending Dr: Emilia Pro DO Copies to: [...] PROCESS. Impression dictated by: Titi Guaman Jr., D.OVania10/20/2024 10:16 AM Dictation Location: [place] [address] Transcribed By: [facility] 10/20/24 1016 Dictated By: Titi Guaman Jr, DO 10/20/24 1015 Signed By: 10/20/24 1016 Normal [facility] ALL RENAL FUNCTION PANELon 0 07-21-2024 Albumin [Mass/Vol] 3.6 g/dL 3.4 - 5.0 g/dL [facility] Anion gap [Moles/Vol] 14.9 mmol/L [facility] Calcium [Mass/Vol] 8.7 mg/dL 8.5 - 10. 1 mg/dL [facility] Chloride [Moles/Vol] 104 mmol/L 98 - 10 7 mmol/L [facility] CO2 [Moles/Vol] 28.1 mmol/L 21.0 - 32.0 mmol/L [facility] Creatinine [Mass/Vol] 3.24 mg/dL High 0.70 - 1.30 mg/dL [facility] GFR/1.73 sq M.predicted CKD-EPI (S/P/Bld) [Vol rate/Area] 22 Low >=60 mL/min/1.73m 2 [facility] Glucose [Mass/Vol] 113 mg/dL High 74 - 106 mg/dL [facility] Phosphate [Mass/Vol] 4.3 mg/dL 2.6 - 4 .7 mg/dL [facility] Potassium [Moles/Vol] 4 mmol/L 3.5 - 5.1 mmol/L [facility] Sodium [Moles/Vol] 143 mmol/L 136 - 145 mmol/L [facility] TBH EGFR-NON AF EGYPTIAN 18 Low >=60 mL/min/1.73m 2 [facility] Urea nitrogen [Mass/Vol] 45 mg/dL High 7.0 - 18.0 mg/dL [facility] Urea nitrogen/Creatinine [Mass ratio] 13.9 mg/mg [facility] ALL URIC ACIDon 07-21-2024 Urate [Mass/Vol] 9.7 mg/dL High 3.5 - 7.2 mg/dL [facility] Erythrocyte distribution wid th Auto (RBC) [Ratio]on 07-21-2024 Erythrocyte distribution width (RBC) [Ratio] Erythrocyte distribution width [Ratio] by Automated count 11.0-15.0 [facility] Estimated glomerular filtrat ion rate (GFR) non- Americanon 07-21-2024 GFR/1.73 sq M.predicted among non-blacks MDRD (S/P/Bld) [Vol rate/Area] Estimated glomerular filtration rate (GFR) non- Low >=60 mL/min/1.73m 2 [facility] Hematocrit Auto (Bld) [Volum e fraction]on 07-21-2024 Hematocrit (Bld) [Volume fraction] Hematocrit [Volume Fraction] of Blood by Automated count Low 42.0-54.0 [facility] Hemoglobin [Mass/volume] in Bloodon 07-21-2024 Hemoglobin (Bld) [Mass/Vol] Hemoglobin [Mass/volume] in Blood Low 14.0-18.0 [facility] Iron binding capacity [Mass/ volume] in Serum or Plasmaon 07-21-2024 Iron binding capacity [Mass/Vol] Iron binding capacity [Mass/volume] in Serum or Plasma 250.0-450.0 [facility] Iron saturation [Mass Fracti on] in Serum or Plasmaon 07-21-2024 Iron saturation [Mass fraction] Iron saturation [Mass Fraction] in Serum or Plasma [facility] Laboratory - Chemistry and C hemistry - challengeon 07-21-2024 Albumin [Mass/Vol] 3.6 g/dL 3.4-5.0 [facility] Calcium [Mass/Vol] 8.7 mg/dL 8.5-10.1 [facility] Chloride [Moles/Vol] 104 mmol/L 98-107 [facility] CO2 [Moles/Vol] 28.1 mmol/L 21.0-32.0 [facility] Cobalamin (Vitamin B12) [Mass/Vol] 367 pg/mL 232-1245 [facility] Comment on above: Performed at: [address] [id number] Director: Cesar Mesa PhD, Phone: [phone] Creatinine [Mass/Vol] 3.24 mg/dL High 0.70-1.30 [facility] Ferritin [Mass/Vol] 126.0 ng/mL 26.0-388.0 [facility] GFR/1.73 sq M.predicted MDRD (S/P/Bld) [Vol rate/Area] 22 mL/min/{1.73_m2} Low >=60 mL/min/1.73m 2 [facility] Glucose [Mass/Vol] 113 mg/dL High 74-106 [facility] Iron [Mass/Vol] 104.0 ug/dL 65.0-175.0 [facility] Potassium [Moles/Vol] 4.0 mmol/L 3.5-5.1 [facility] Sodium [Moles/Vol] 143 mmol/L 136-145 [facility] Urate [Mass/Vol] 9.7 mg/dL High 3.5-7.2 [facility] Urea nitrogen [Mass/Vol] 45.0 mg/dL High 7.0-18.0 [facility] Urea nitrogen/Creatinine [Mass ratio] 13.9 mg/mg [facility] Laboratory - Urinalysison Protein (U) [Mass/Vol] 22.4 mg/dL High <=11.9 [facility] Leukocytes [#/volume] correc mario for nucleated erythrocytes in Blood by Automated counon 07-21-2024 WBC corrected for nucl RBC Auto (Bld) [#/Vol] Leukocytes [#/volume] corrected for nucleated erythrocytes in Blood by Automated coun 4.0-11.0 [facility] MCH Auto (RBC) [Entitic mass ]on 07-21-2024 MCH (RBC) [Entitic mass] MCH [Entitic mass] by Automated count 25.9-34.0 [facility] MCHC Auto (RBC) [Mass/Vol]on 07-21-2024 MCHC (RBC) [Mass/Vol] MCHC [Mass/volume] by Automated count 29.9-35.2 [facility] MCV Auto (RBC) [Entitic vol] on 07-21-2024 MCV (RBC) [Entitic vol] MCV [Entitic vol ume] by Automated count High 80.0-94.0 [facility] Microalbumin [Mass/volume] i n Urineon 07-21-2024 Albumin DL <= 20 mg/L (U) [Mass/Vol] Microalbumin [Mass/volume] in Urine <=30.0 [facility] No Panel Informationon 07-21 Interpretation and review of laboratory results Abnormal [facility] Folate 10.50 ng/mL 8.60-58.90 [facility] Parathyroid Hormone (Intact) 116 pg/mL Abnormal 15-65 [facility] Comment on above: Performed at: [facility] [address] [id number] Director: Cesar Mesa PhD, Phone: [phone] Phosphorus Level 4.3 mg/dL 2.6-4.7 [facility] Urine Random Creatinine 105.90 mg/dL 20.00-300. 00 [facility] Platelet mean volume Auto (B ld) [Entitic vol]on 07-21-2024 Platelet mean volume (Bld) [Entitic vol] Platelet mean volume [Entitic volume] in Blood by Automated count 9.5-13.5 [facility] Platelets Auto (Bld) [#/Vol] on 07-21-2024 Platelets (Bld) [#/Vol] Platelets [#/vol ume] in Blood by Automated count 150-450 [facility] RBC Auto (Bld) [#/Vol]on RBC (Bld) [#/Vol] Erythrocytes [#/volu me] in Blood by Automated count Low 4.70-6.10 [facility] Serum or plasma anion gap de terminationon 07-21-2024 Anion gap [Moles/Vol] Serum or plasma an ion gap determination [facility] MICROALB CREAT RATIO RAN DOMon 07-21-2024 CREATININE URINE RANDOM 105.09 mg/dL 20.0 0 - 300.00 mg/dL [facility] MICROALBUM CREATININE RATIO UR 12.3 mg/g 0.0 - 29.9 mg/g [facility] Comment on above: NO MICROALBUMINURIA 0-29 MG/G CLINICAL MICROALBUMINURIA 30-300 MG/G MACROALBUMINURIA >300 MG/G MICROALBUMIN URINE RANDOM 1.3 mg/dL NINF - 30.0 mg/dL [facility] URINE T PROTEIN CREAT RA TIOon 07-21-2024 CREATININE URINE RANDOM 105.9 mg/dL 20.0 0 - 300.00 mg/dL [facility] Interpretation and review of laboratory results Abnormal [facility] Protein (U) [Mass/Vol] 22.4 mg/dL High NINF - 11.9 mg/dL [facility] PROTEIN CREATININE RATIO URINE 0.21 [facility] Urine microalbumin/creatinin e mass ratioon 07-21-2024 Albumin/Creatinine DL <= 20 mg/L (U) [Mass ratio] Urine microalbumin/creatinine mass ratio 0.0-29.9 [facility] Comment on above: NO MICROALBUMINURIA 0-29 MG/GCLINICAL MICROALBUMINURIA 30-300 MG/GMACROALBUMINURIA >300 MG/G Urine protein/creatinine rat ioon 07-21-2024 Protein/Creatinine (U) [Ratio] Urine protein/creatinine ratio [facility] US AV Fistulaon 05-24-2024 US AV Fistula [facility] [address] [place] [address] Ultrasound Report Signed Patient: Apolinar Norman MR#: [id number] : 1940 Acct:[id number] Age/Sex: 84 / M ADM Date: 05/03/24 Loc: [facility] Room: Type: [facility] Attending Dr: Hussein Talavera MD Ordering Provider: Hussein Talavera MD Date of Service: 05/03/24 US/US AV Fistula: N18.4 - Chronic kidney disease, stage 4 (severe) Copies to: Hussein Talavera MD Duplex examination left Manpreet fistula Indication for study: Follow-up after fistula creation with inadequate fistula by physical examination PROCEDURE: Color-flow duplex scanning is used to interrogate the patient's left Manpreet fistula. It is noted that the vein is patent although flow levels are markedly diminished. Flow in the radial artery is estimated to be 50 cc/m. Cephalic vein is patent although it did not obtain adequate flow to determine overall flow volumes. At the antecubital level isn't empties into the penetrating cubital branch and then into the upper arm basilic vein. 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 Work Phone: [facility] Work Phone: Albumin [Mass/volume] in Ser um or Plasma by Bromocresol green (BCG) dye binding methoOrdered By: Sophia Woo on 03-25-2024 Albumin BCG dye [Mass/Vol] 3.8 g/dL 3.5-5.7 [facility] Calcium [Mass/volume] in Ser um or PlasmaOrdered By: Sophia Woo on 03-25-2024 Calcium [Mass/Vol] 8.8 mg/dL Normal 8.6-10.3 [facility] Comment on above: Performed By: #### G LULS #### Point of Care testing , Carbon dioxide, total [Moles /volume] in Serum or PlasmaOrdered By: Sophia Woo on 03-25-2024 CO2 [Moles/Vol] 27.7 mmol/L Normal 21.0-31.0 [facility] Comment on above: Performed By: #### G LULS #### Point of Care testing , Chloride [Moles/volume] in S jorge a or PlasmaOrdered By: Sophia Woo on 03-25-2024 Chloride [Moles/Vol] 102 mmol/L Normal 98-107 [facility] Comment on above: Performed By: #### G LULS #### Point of Care testing , Creatinine [Mass/volume] in Serum or PlasmaOrdered By: Sophia Woo on 03-25-2024 Creatinine [Mass/Vol] 3.20 mg/dL High 0.70-1.30 [facility] Comment on above: Performed By: #### G LULS #### Point of Care testing , Erythrocyte distribution wid th [Ratio] by Automated countOrdered By: Sophia Woo on 03-25-2024 Erythrocyte distribution width (RBC) [Ratio] 13.8 % Normal 12.0-14.8 [facility] Comment on above: Performed By: #### G LULS #### Point of Care testing , Erythrocytes [#/volume] in B lood by Automated countOrdered By: Sophia Woo on 03-25-2024 RBC (Bld) [#/Vol] 3.54 10*6/uL Low 3.90-5.60 [facility] Comment on above: Performed By: #### G LULS #### Point of Care testing , Glucose [Mass/volume] in Ser um or PlasmaOrdered By: Sophia Woo on 03-25-2024 Glucose [Mass/Vol] 108 mg/dL High 70-100 [facility] Comment on above: ADA recommended refe rence rangeRandom Glucose Reference Range is dependent on time and content of last meal. Glucose of more than 200 mg/dL in a nonstressed, ambulatory subject supports the diagnosis of Diabetes Mellitus. Result Comment: [place] Glucose Reference Range is dependent on time and content of last meal. Glucose of more than 200 mg/dL in a nonstressed, ambulatory subject supports the diagnosis of Diabetes Mellitus. ADA recommended reference range Performed By: #### G LULS #### Point of Care testing , Hematocrit [Volume Fraction] of Blood by Automated countOrdered By: Sophia Woo on 03-25-2024 Hematocrit (Bld) [Volume fraction] 34.5 % Low 38.8-50.0 [facility] Comment on above: Performed By: #### G LULS #### Point of Care testing , Hemoglobin [Mass/volume] in BloodOrdered By: Sophia Woo on 03-25-2024 Hemoglobin (Bld) [Mass/Vol] 11.4 g/dL Low 13.0-17.0 [facility] Comment on above: Performed By: #### G LULS #### Point of Care testing , Hemogram CBC Without Diffon 03-25-2024 Mean Corpuscular HGB Conc 33.0 g/dL Normal 32.5-35.6 [facility] Comment on above: Performed By: #### G LULS #### Point of Care testing , WBC (Bld) [#/Vol] 7.1 10*3/uL Normal 4.1-10.5 [facility] Comment on above: Performed By: #### G LULS #### Point of Care testing , Leukocytes [#/volume] correc mario for nucleated erythrocytes in Blood by Automated counOrdered By: Sophia Woo on 03-25-2024 WBC corrected for nucl RBC Auto (Bld) [#/Vol] 7.1 10*3/uL 4.1-10.5 [facility] MCH [Entitic mass] by Automa mario countOrdered By: Sophia Woo on 03-25-2024 MCH (RBC) [Entitic mass] 32.2 pg Normal 27.5-35.2 [facility] Comment on above: Performed By: #### G LULS #### Point of Care testing , MCHC Auto (RBC) [Mass/Vol]Or dered By: Sophia Woo on 03-25-2024 MCHC (RBC) [Mass/Vol] 33.0 g/dL 32.5-35.6 [facility] MCV [Entitic volume] by Auto mated countOrdered By: Sophia Woo on 03-25-2024 MCV (RBC) [Entitic vol] 97.4 fL Normal 83.5-101 [facility] Comment on above: Performed By: #### G LULS #### Point of Care testing , No Panel InformationOrdered By: Sophia Woo on 03-25-2024 Estimated GFR (CKD-EPI) 18.493 mL/Min [facility] Creatinine Clearance (Chem N/A [facility] Parathyrin.intact [Mass/volu me] in Serum or PlasmaOrdered By: Sophia Woo on 03-25-2024 Parathyrin.intact [Mass/Vol] 121.0 pg/mL High [facility] Parathyroid Hormone Intacton 03-25-2024 Parathyroid Hormone Intact 121.0 pg/mL High [facility] Comment on above: Result Comment: PERF ORMED BY: [facility] [address] [place] [address] PATHOLOGIST JEWELRY [employer] APPRENTICE MO PALOMO M.D. Performed By: #### G LULS #### Point of Care testing , Phosphate [Mass/volume] in S jorge a or PlasmaOrdered By: Sophia Woo on 03-25-2024 Phosphate [Mass/Vol] 4.3 mg/dL Normal 2.5-4.5 [facility] Comment on above: Performed By: #### G LULS #### Point of Care testing , Platelet mean volume [Entiti c volume] in Blood by Automated countOrdered By: Sophia Woo on 03-25-2024 Platelet mean volume (Bld) [Entitic vol] 9.5 fL Normal 6.6-10.1 [facility] Comment on above: Result Comment: PERF ORMED BY: [facility] [address] [place] [address] PATHOLOGIST JEWELRY [employer] APPRENTICE MO PALOMO M.D. Performed By: #### G LULS #### Point of Care testing , Platelets [#/volume] in Bloo d by Automated countOrdered By: Sophia Woo on 03-25-2024 Platelets (Bld) [#/Vol] 159 10*3/uL Normal 150-450 [facility] Comment on above: Performed By: #### G LULS #### Point of Care testing , Potassium [Moles/volume] in Serum or PlasmaOrdered By: Sophia Woo on 03-25-2024 Potassium [Moles/Vol] 4.1 mmol/L Normal 3.5-5.1 [facility] Comment on above: Performed By: #### G LULS #### Point of Care testing , Renal Function Panelon 03-25 Albumin [Mass/Vol] 3.8 g/dL Normal 3.5-5.7 [facility] Comment on above: Result Comment: PERF ORMED BY: [facility] [address] [place] [address] PATHOLOGIST JEWELRY [employer] APPRENTICE MO PALOMO M.D. Performed By: #### G LULS #### Point of Care testing , GFR/1.73 sq M.predicted MDRD (S/P/Bld) [Vol rate/Area] 18.493 mL/min/{1.73_m2} Normal [facility] Comment on above: Performed By: #### G LULS #### Point of Care testing , Serum or plasma anion gap de terminationOrdered By: Sophia Woo on 03-25-2024 Anion gap [Moles/Vol] 13.4 mmol/L Normal 6.0-15.0 [facility] Comment on above: Performed By: #### G LULS #### Point of Care testing , Sodium [Moles/volume] in Ser um or PlasmaOrdered By: Sophia Woo on 03-25-2024 Sodium [Moles/Vol] 139 mmol/L Normal 136-145 [facility] Comment on above: Performed By: #### G LULS #### Point of Care testing , Urea nitrogen [Mass/volume] in Serum or PlasmaOrdered By: Sophia Woo on 03-25-2024 Urea nitrogen [Mass/Vol] 46 mg/dL High 7-25 [facility] Comment on above: Performed By: #### G LULS #### Point of Care testing , Laboratory - Hematology and Cell countson 03-24-2024 HbA1c (Bld) [Mass fraction] 5.7 % [facility] No Panel Informationon 03-24 [facility] Capillary blood glucose rachel urement by glucometer (mass/volume)Ordered By: Mere Nelson on 02-10-2024 Glucose [Mass/Vol] 141 mg/dL Normal [facility] Comment on above: Random Glucose Refer ence Range is dependent on time and content of last meal. Glucose of more than 200 mg/dL in a nonstressed, ambulatory subject supports the diagnosis of Diabetes Mellitus. Result Comment: [place] Glucose Reference Range is dependent on time and content of last meal. Glucose of more than 200 mg/dL in a nonstressed, ambulatory subject supports the diagnosis of Diabetes Mellitus. Performed By: #### G LULS #### Point of Care testing , Glucose Poct Glucometerson 0 02-10-2024 Commemt1 Glu2: Cleaned Meter Normal [facility] Comment on above: Result Comment: PERF ORMED BY: [address] [place] [address] PATHOLOGIST JEWELRY [employer] APPRENTICE MO PALOMO M.D. Performed By: #### G LULS #### Point of Care testing , Glucose [Mass/Vol] 147 mg/dL Normal [facility] Comment on above: Result Comment: [facility] Glucose Reference Range is dependent on time and content of last meal. Glucose of more than 200 mg/dL in a nonstressed, ambulatory subject supports the diagnosis of Diabetes Mellitus. PERFORMED BY: [address] [place] [address] PATHOLOGIST JEWELRY [employer] MAK[employer] APPRENTICE MO PALOMO M.D. Performed By: #### G LULS #### Point of Care testing , No Panel InformationOrdered By: Mere Nelson on 02-10-2024 Bedside Glucose Comment Glu2: cleaned meter [facility] A1C with Estimated Average G lamarn 02-09-2024 Glucose [Mass/Vol] 131 mg/dL Normal [facility] Comment on above: Result Comment: PERF ORMED BY: [address] [place] [address] PATHOLOGIST JEWELRY [employer] APPRENTICE MO PALOMO M.D. Performed By: #### G LULS #### Point of Care testing , Basic Metabolic Panelon 01-12 Creatinine Clr Calc Pharmacy 16.23 Normal [facility] Comment on above: Result Comment: PERF ORMED BY: [facility] [place] [place] [address] PATHOLOGIST JEWELRY [employer] APPRENTICE MO PALOMO M.D. Performed By: #### G LULS #### Point of Care testing , GFR/1.73 sq M.predicted MDRD (S/P/Bld) [Vol rate/Area] 14.630 mL/min/{1.73_m2} Normal [facility] Comment on above: Performed By: #### G LULS #### Point of Care testing , Calcium [Mass/volume] in Ser um or PlasmaOrdered By: Mehnaz Gambino on 02-09-2024 Calcium [Mass/Vol] 8.2 mg/dL Low 8.6-10.3 [facility] Comment on above: Performed By: #### G LULS #### Point of Care testing , Carbon dioxide, total [Moles /volume] in Serum or PlasmaOrdered By: Mehnaz Gambino on 02-09-2024 CO2 [Moles/Vol] 24.6 mmol/L Normal 21.0-31.0 [facility] Comment on above: Performed By: #### G LULS #### Point of Care testing , Chloride [Moles/volume] in S jorge a or PlasmaOrdered By: Mehnaz Gambino on 02-09-2024 Chloride [Moles/Vol] 100 mmol/L Normal 98-107 [facility] Comment on above: Performed By: #### G LULS #### Point of Care testing , Creatinine [Mass/volume] in Serum or PlasmaOrdered By: Mehnaz Gambino on 02-09-2024 Creatinine [Mass/Vol] 3.89 mg/dL High 0.70-1.30 [facility] Comment on above: Performed By: #### G LULS #### Point of Care testing , Glucose Poct Glucometerson 0 02-09-2024 Glucose [Mass/Vol] 170 mg/dL Normal [facility] Comment on above: Result Comment: [place] Glucose Reference Range is dependent on time and content of last meal. Glucose of more than 200 mg/dL in a nonstressed, ambulatory subject supports the diagnosis of Diabetes Mellitus. PERFORMED BY: [facility] [place] [place] [address] PATHOLOGIST JEWELRY [employer] APPRENTICE MO PALOMO M.D. Performed By: #### G LULS #### Point of Care testing , Glucose [Mass/volume] in Ser um or PlasmaOrdered By: Mehnaz Gambino on 02-09-2024 Glucose [Mass/Vol] 138 mg/dL High 70-100 [facility] Comment on above: ADA recommended refe rence rangeRandom Glucose Reference Range is dependent on time and content of last meal. Glucose of more than 200 mg/dL in a nonstressed, ambulatory subject supports the diagnosis of Diabetes Mellitus. Result Comment: [place] Glucose Reference Range is dependent on time and content of last meal. Glucose of more than 200 mg/dL in a nonstressed, ambulatory subject supports the diagnosis of Diabetes Mellitus. ADA recommended reference range Performed By: #### G LULS #### Point of Care testing , Glucose mean value [Mass/vol ume] in Blood Estimated from glycated hemoglobinOrdered By: Mehnaz Gambino on 02-09-2024 Average glucose Estimated from glycated hemoglobin (Bld) [Mass/Vol] 131 mg/dL [facility] Hemoglobin A1c percentageOrd ered By: Mehnaz Gambino on 02-09-2024 HbA1c (Bld) [Mass fraction] 6.2 % High 4.3-5.6 [facility] Comment on above: Increased risk for d iabetes: 5.7 - 6.4diabetes: >6.4glycemic control for adults with diabetes: <7.0 Result Comment: Incr eased risk for diabetes: 5.7 - 6.4 diabetes: >6.4 glycemic control for adults with diabetes: <7.0 Performed By: #### G LULS #### Point of Care testing , No Panel InformationOrdered By: Mehnaz Gambino on 02-09-2024 Estimated GFR (CKD-EPI) 14.630 mL/Min [facility] Creatinine Clearance (Chem 16.23 [facility] Potassium [Moles/volume] in Serum or PlasmaOrdered By: Mehnaz Gambino on 02-09-2024 Potassium [Moles/Vol] 3.5 mmol/L Normal 3.5-5.1 [facility] Comment on above: Performed By: #### G LULS #### Point of Care testing , Serum or plasma anion gap de terminationOrdered By: Mehnaz Gambino on 02-09-2024 Anion gap [Moles/Vol] 13.9 mmol/L Normal 6.0-15.0 [facility] Comment on above: Performed By: #### G LULS #### Point of Care testing , Sodium [Moles/volume] in Ser um or PlasmaOrdered By: Mehnaz Gambino on 02-09-2024 Sodium [Moles/Vol] 135 mmol/L Low 136-145 [facility] Comment on above: Performed By: #### G LULS #### Point of Care testing , Urea nitrogen [Mass/volume] in Serum or PlasmaOrdered By: Mehnaz Gambino on 02-09-2024 Urea nitrogen [Mass/Vol] 77 mg/dL High 7-25 [facility] Comment on above: Performed By: #### G LULS #### Point of Care testing , Bacteria [Presence] in Urine by AutomatedOrdered By: Mehnaz Gambino on 02-08-2024 Bacteria Auto Ql (U) None seen [HPF] None Seen [facility] Bilirubin Test strip Ql (U)O rdered By: Mehnaz Gambino on 02-08-2024 Bilirubin Ql (U) Negative Negative [facility] Color of Urine by AutoOrdere d By: Mehnaz Gambino on 02-08-2024 Color (U) Yellow Normal Yellow [facility] Comment on above: Order Comment: Name Collection Type:: Clean-Voided Midstream Performed By: #### G LULS #### Point of Care testing , Dipstick and Microscopicon 0 02-08-2024 Bacteria,Urine None Seen Normal None Seen [facility] Comment on above: Order Comment: Name Collection Type:: Clean-Voided Midstream Performed By: #### G LULS #### Point of Care testing , Bilirubin,Urine Negative Normal Negative [facility] Comment on above: Order Comment: Name Collection Type:: Clean-Voided Midstream Performed By: #### G LULS #### Point of Care testing , Glucose Ql (U) Normal Normal Normal [facility] Comment on above: Order Comment: Name Collection Type:: Clean-Voided Midstream Performed By: #### G LULS #### Point of Care testing , Hyaline Casts,Urine None Normal 0-8 [facility] Comment on above: Order Comment: Name Collection Type:: Clean-Voided Midstream Result Comment: PERF ORMED BY: [place] [address] PATHOLOGIST JEWELRY CASTING MODEL MAKER APPRENTICE MO PALOMO M.D. Performed By: #### G LULS #### Point of Care testing , Nitrite,Urine Negative Normal Negative [facility] Comment on above: Order Comment: Name Collection Type:: Clean-Voided Midstream Performed By: #### G LULS #### Point of Care testing , Occult Blood,Urine 1+ High Negative [facility] Comment on above: Order Comment: Name Collection Type:: Clean-Voided Midstream Result Comment: PERF ORMED BY: [address] [place] [address] PATHOLOGIST JEWELRY CASTING MODEL MAKER APPRENTICE MO PALOMO M.D. Performed By: #### G LULS #### Point of Care testing , RBC,Urine 1-2 Normal 0-4 [facility] Comment on above: Order Comment: Name Collection Type:: Clean-Voided Midstream Performed By: #### G LULS #### Point of Care testing , Specificy [place],Urine 1.015 Normal 1.001-1.030 [facility] Comment on above: Order Comment: Name Collection Type:: Clean-Voided Midstream Performed By: #### G LULS #### Point of Care testing , Urobilinogen,Urine Normal Normal Normal [facility] Comment on above: Order Comment: Name Collection Type:: Clean-Voided Midstream Performed By: #### G LULS #### Point of Care testing , WBC,Urine None Seen Normal 0-4 [facility] Comment on above: Order Comment: Name Collection Type:: Clean-Voided Midstream Performed By: #### G LULS #### Point of Care testing , Epithelial cells.squamous [# /area] in Urine sediment by Automated countOrdered By: Mehnaz Gambino on 02-08-2024 Epithelial cells.squamous Auto (Urine sed) [#/Area] N/A [facility] Erythrocytes [#/area] in Uri ne sediment by Automated countOrdered By: Mehnaz Gambino on 02-08-2024 RBC Auto (Urine sed) [#/Area] 1-2 [HPF] 0-4 [facility] Glucose Poct Glucometerson 0 02-08-2024 Glucose [Mass/Vol] 207 mg/dL Normal [facility] Comment on above: Result Comment: [facility] Glucose Reference Range is dependent on time and content of last meal. Glucose of more than 200 mg/dL in a nonstressed, ambulatory subject supports the diagnosis of Diabetes Mellitus. PERFORMED BY: [address] [place] [address] PATHOLOGIST JEWELRY CASTING MODEL MAKER APPRENTICE MO PALOMO M.D. Performed By: #### G LULS #### Point of Care testing , Glucose [Mass/Vol] 190 mg/dL Normal [facility] Comment on above: Result Comment: [facility] Glucose Reference Range is dependent on time and content of last meal. Glucose of more than 200 mg/dL in a nonstressed, ambulatory subject supports the diagnosis of Diabetes Mellitus. PERFORMED BY: [facility] [address] [place] [address] PATHOLOGIST JEWELRY CASTING MODEL MAKER APPRENTICE MO PALOMO M.D. Performed By: #### G LULS #### Point of Care testing , Glucose [Mass/Vol] 149 mg/dL Normal [facility] Comment on above: Result Comment: [facility] Glucose Reference Range is dependent on time and content of last meal. Glucose of more than 200 mg/dL in a nonstressed, ambulatory subject supports the diagnosis of Diabetes Mellitus. PERFORMED BY: [facility] [address] [place] [address] PATHOLOGIST JEWELRY CASTING MODEL MAKER APPRENTICE MO PALOMO M.D. Performed By: #### G LULS #### Point of Care testing , Glucose [Mass/Vol] 180 mg/dL Normal [facility] Comment on above: Result Comment: [facility] Glucose Reference Range is dependent on time and content of last meal. Glucose of more than 200 mg/dL in a nonstressed, ambulatory subject supports the diagnosis of Diabetes Mellitus. PERFORMED BY: [facility] [address] [place] [address] PATHOLOGIST JEWELRY CASTING MODEL MAKER APPRENTICE MO PALOMO M.D. Performed By: #### G LULS #### Point of Care testing , Glucose [Mass/volume] in Uri ne by Test stripOrdered By: Mehnaz Gambino on 02-08-2024 Glucose Test strip (U) [Mass/Vol] Normal mg/dL Normal [facility] Hemoglobin Test strip Ql (U) Ordered By: Mehnaz Gambino on 02-08-2024 Hemoglobin Ql (U) 1+ High Negative [facility] Hyaline casts [#/area] in Ur ine sediment by Automated countOrdered By: Mehnaz Gambino on 02-08-2024 Hyaline casts Auto (Urine sed) [#/Area] None [LPF] 0-8 [facility] Ketones [Presence] in Urine by Test stripOrdered By: Mehnaz Gambino on 02-08-2024 Ketones Ql (U) Negative Normal Negative [facility] Comment on above: Order Comment: Name Collection Type:: Clean-Voided Midstream Performed By: #### G LULS #### Point of Care testing , Leukocyte esterase [Presence ] in Urine by Test stripOrdered By: Mehnaz Gambino on 02-08-2024 Leukocyte esterase Test strip Ql (U) 4+ High Negative [facility] Comment on above: Order Comment: Name Collection Type:: Clean-Voided Midstream Performed By: #### G LULS #### Point of Care testing , Leukocytes [#/area] in Urine sediment by Automated countOrdered By: Mehnaz Gambino on 02-08-2024 WBC Auto (Urine sed) [#/Area] None seen [HPF] 0-4 [facility] Nitrite Test strip Ql (U)Ord ered By: Mehnaz Gambino on 02-08-2024 Nitrite Ql (U) Negative Negative [facility] Protein [Mass/volume] in Uri ne by Test stripOrdered By: Mehnaz Gambino on 02-08-2024 Protein (U) [Mass/Vol] 50 mg/dL High Negative [facility] Comment on above: Order Comment: Name Collection Type:: Clean-Voided Midstream Performed By: #### G LULS #### Point of Care testing , Specific gravity Test strip (U) [Rel density]Ordered By: Mehnaz Gambino on 02-08-2024 Specific gravity (U) [Rel density] 1.015 1.001-1.030 [facility] Urine appearanceOrdered By: Mehnaz Gambino on 02-08-2024 Appearance (U) Cloudy Critically abnormal Clear [facility] Comment on above: Order Comment: Name Collection Type:: Clean-Voided Midstream Performed By: #### G LULS #### Point of Care testing , Urobilinogen Test strip (U) [Mass/Vol]Ordered By: Mehnaz Gambino on 02-08-2024 Urobilinogen (U) [Mass/Vol] Normal mg/dL Normal [facility] pH of Urine by Test stripOrd ered By: Mehnaz Gambino on 02-08-2024 pH (U) 8.0 [pH] Normal 5.0-9.0 [facility] Comment on above: Order Comment: Name Collection Type:: Clean-Voided Midstream Performed By: #### G LULS #### Point of Care testing , Automated basophil %Ordered By: Mehnaz Gambino on 02-07-2024 Basophils/100 WBC (Bld) 0.6 % Normal . [facility] Comment on above: Performed By: #### C BC, BMP ####[facility] [id number] [place] [address] [place] Automated basophil countOrde red By: Mehnaz Gambino on 02-07-2024 Basophils (Bld) [#/Vol] 0.1 10*3/uL Normal 0.0-0.2 [facility] Comment on above: Result Comment: PERF ORMED BY: [facility] [address] [place] [address] PATHOLOGIST JEWELRY CA[employer]ING [employer]DEL MAKER APPRENTICE MO PALOMO M.D. Performed By: #### C BC, BMP ####[address] Automated blood monocyte cou ntOrdered By: Mehnaz Gambino on 02-07-2024 Monocytes (Bld) [#/Vol] 0.7 10*3/uL Normal 0.0-0.8 [facility] Comment on above: Performed By: #### C BC, BMP ####[address] Automated eosinophil %Ordere d By: Mehnaz Gambino on 02-07-2024 Eosinophils/100 WBC (Bld) 4.7 % Normal . [facility] Comment on above: Performed By: #### C BC, BMP ####[address] Automated eosinophil countOr dered By: Mehnaz Gambino on 02-07-2024 Eosinophils (Bld) [#/Vol] 0.5 10*3/uL High 0.0-0.45 [facility] Comment on above: Performed By: #### C BC, BMP ####[place] [id number] [place] Automated monocyte %Ordered By: Mehnaz Gambino on 02-07-2024 Monocytes/100 WBC (Bld) 7.6 % Normal . [facility] Comment on above: Performed By: #### C BC, BMP ####[place] [id number] [place] Automated neutrophil %Ordere d By: Mehnaz Gambino on 02-07-2024 Neutrophils/100 WBC (Bld) 80.4 % Normal . [facility] Comment on above: Performed By: #### C BC, BMP ####[place] [id number] [place] Basic Metabolic Panelon 07-2 Anion gap [Moles/Vol] 13.1 mmol/L Normal 6.0-15.0 [facility] Comment on above: Performed By: #### C JAROD, BMP ####[address] Calcium [Mass/Vol] 8.6 mg/dL Normal 8.6-10.3 [facility] Comment on above: Performed By: #### C JAROD, BMP ####[address] Chloride [Moles/Vol] 103 mmol/L Normal 98-107 [facility] Comment on above: Performed By: #### C JAROD, BMP ####[address] CO2 [Moles/Vol] 25.7 mmol/L Normal 21.0-31.0 [facility] Comment on above: Performed By: #### C JAROD, BMP ####[address] Creatinine [Mass/Vol] 3.83 mg/dL High 0.70-1.30 [facility] Comment on above: Performed By: #### C JAROD, BMP ####[address] Creatinine Clr Calc Pharmacy 16.50 Normal [facility] Comment on above: Result Comment: PERF ORMED BY: [facility] [address] [facility] [place] [id number] PATHOLOGIST JEWELRY CA[employer]ING MODEL MAKER APPRENTICE MO PALOMO M.D. Performed By: #### C JAROD, BMP ####[place] [id number] [place] GFR/1.73 sq M.predicted MDRD (S/P/Bld) [Vol rate/Area] 14.905 mL/min/{1.73_m2} Normal [facility] Comment on above: Performed By: #### C JAROD, BMP ####[address] Glucose [Mass/Vol] 176 mg/dL High 70-100 [facility] Comment on above: Result Comment: [place] Glucose Reference Range is dependent on time and content of last meal. Glucose of more than 200 mg/dL in a nonstressed, ambulatory subject supports the diagnosis of Diabetes Mellitus. ADA recommended reference range Performed By: #### C BC, BMP ####[place] [id number] [place] Potassium [Moles/Vol] 3.8 mmol/L Normal 3.5-5.1 [facility] Comment on above: Performed By: #### C BC, BMP ####[place] [id number] [place] Sodium [Moles/Vol] 138 mmol/L Normal 136-145 [facility] Comment on above: Performed By: #### C BC, BMP ####[place] [id number] [place] Urea nitrogen [Mass/Vol] 70 mg/dL High 7-25 [facility] Comment on above: Performed By: #### C BC, BMP ####[place] [id number] [place] Complete Blood Count Auto Di ffon 02-07-2024 Mean Corpuscular HGB Conc 33.2 g/dL Normal 32.5-35.6 [facility] Comment on above: Performed By: #### C BC, BMP ####[place] [id number] [place] NRBC% 0.0 /100{WBC} Normal 0-0.5 [facility] Comment on above: Performed By: #### C BC, BMP ####[place] [id number] [place] Erythrocyte distribution wid th [Ratio] by Automated countOrdered By: Mehnaz Gambino on 02-07-2024 Erythrocyte distribution width (RBC) [Ratio] 13.6 % Normal 12.0-14.8 [facility] Comment on above: Performed By: #### C BC, BMP ####[place] [id number] [place] Erythrocytes [#/volume] in B lood by Automated countOrdered By: Mehnaz Gambino on 02-07-2024 RBC (Bld) [#/Vol] 3.18 10*6/uL Low 3.90-5.60 [facility] Comment on above: Performed By: #### C BC, BMP ####[facility] [id number] [place] [id number] [place] Glucose Poct Glucometerson 0 02-07-2024 Commemt1 Glu2: Cleaned Meter Normal [facility] Comment on above: Result Comment: PERF ORMED BY: [facility] [address] [place] [address] PATHOLOGIST JEWELRY CA[employer]ING MODEL MAKER APPRENTICE MO PALOMO M.D. Performed By: #### G LULS ####Point of Care testing, Glucose [Mass/Vol] 133 mg/dL Normal [facility] Comment on above: Result Comment: [place] Glucose Reference Range is dependent on time and content of last meal. Glucose of more than 200 mg/dL in a nonstressed, ambulatory subject supports the diagnosis of Diabetes Mellitus. Performed By: #### G LULS ####Point of Care testing, Commemt1 Glu2: Cleaned Meter Normal [facility] Comment on above: Result Comment: PERF ORMED BY: [facility] [address] [place] [address] PATHOLOGIST JEWELRY CA[employer]ING MODEL MAKER APPRENTICE MO PALOMO M.D. Performed By: #### G LULS #### Point of Care testing , Glucose [Mass/Vol] 218 mg/dL Normal [facility] Comment on above: Result Comment: [place] Glucose Reference Range is dependent on time and content of last meal. Glucose of more than 200 mg/dL in a nonstressed, ambulatory subject supports the diagnosis of Diabetes Mellitus. Performed By: #### G LULS #### Point of Care testing , Commemt1 Glu2: Cleaned Meter Normal [facility] Comment on above: Result Comment: PERF ORMED BY: [facility] [address] [place] [id number] PATHOLOGIST JEWELRY CASTING MODEL MAKER APPRENTICE MO PALOMO M.D. Performed By: #### G LULS #### Point of Care testing , Glucose [Mass/Vol] 141 mg/dL Normal [facility] Comment on above: Result Comment: [facility] Glucose Reference Range is dependent on time and content of last meal. Glucose of more than 200 mg/dL in a nonstressed, ambulatory subject supports the diagnosis of Diabetes Mellitus. Performed By: #### G RAMIRO #### Point of Care testing , Hematocrit [Volume Fraction] of Blood by Automated countOrdered By: Mehnaz Gambino on 02-07-2024 Hematocrit (Bld) [Volume fraction] 31.7 % Low 38.8-50.0 [facility] Comment on above: Performed By: #### C JAROD, BMP ####[place] [id number] [place] [id number] [place] Hemoglobin [Mass/volume] in BloodOrdered By: Mehnaz Gambino on 02-07-2024 Hemoglobin (Bld) [Mass/Vol] 10.5 g/dL Low 13.0-17.0 [facility] Comment on above: Performed By: #### C JAROD, BMP ####[place] [id number] [place] Leukocytes [#/volume] correc mario for nucleated erythrocytes in Blood by Automated counOrdered By: Mehnaz Gambino on 02-07-2024 WBC corrected for nucl RBC Auto (Bld) [#/Vol] 9.8 10*3/uL 4.1-10.5 [facility] Leukocytes [#/volume] in Blo od by Automated countOrdered By: Mehnaz Gambino on 02-07-2024 WBC (Bld) [#/Vol] 9.8 10*3/uL Normal 4.1-10.5 [facility] Comment on above: Performed By: #### C JAROD, BMP ####[place] [id number] [place] Lymphocytes [#/volume] in Bl ood by Automated countOrdered By: Mehnaz Gambino on 02-07-2024 Lymphocytes (Bld) [#/Vol] 0.7 10*3/uL Low 1.00-4.8 [facility] Comment on above: Performed By: #### C JAROD, BMP ####[address] Lymphocytes/100 leukocytes i n Blood by Automated countOrdered By: Mehnaz Gambino on 02-07-2024 Lymphocytes/100 WBC (Bld) 6.7 % Normal . [facility] Comment on above: Performed By: #### C BC, BMP ####[address] MCH [Entitic mass] by Automa mario countOrdered By: Mehnaz Gambino on 02-07-2024 MCH (RBC) [Entitic mass] 33.1 pg Normal 27.5-35.2 [facility] Comment on above: Performed By: #### C BC, BMP ####[address] MCHC Auto (RBC) [Mass/Vol]Or dered By: Mehnaz Gambino on 02-07-2024 MCHC (RBC) [Mass/Vol] 33.2 g/dL 32.5-35.6 [facility] MCV [Entitic volume] by Auto mated countOrdered By: Mehnaz Gambino on 02-07-2024 MCV (RBC) [Entitic vol] 99.7 fL Normal 83.5-101 [facility] Comment on above: Performed By: #### C BC, BMP ####[address] Neutrophils [#/volume] in Bl ood by Automated countOrdered By: Mehnaz Gambino on 02-07-2024 Neutrophils (Bld) [#/Vol] 7.8 10*3/uL High 1.8-7.7 [facility] Comment on above: Performed By: #### C BC, BMP ####[address] Nucleated erythrocytes [Pres ence] in Blood by Automated countOrdered By: Mehnaz Gambino on 02-07-2024 Nucleated RBC Auto Ql (Bld) 0.0 /100{WBC} 0-0.5 [facility] Platelet mean volume [Entiti c volume] in Blood by Automated countOrdered By: Mehnaz Gambino on 02-07-2024 Platelet mean volume (Bld) [Entitic vol] 10.5 fL High 6.6-10.1 [facility] Comment on above: Performed By: #### C JAROD, BMP ####[place] [id number] [place] Platelets [#/volume] in Bloo d by Automated countOrdered By: Mehnaz Gambino on 02-07-2024 Platelets (Bld) [#/Vol] 140 10*3/uL Low 150-450 [facility] Comment on above: Performed By: #### C JAROD, BMP ####[place] [id number] [place] Basic Metabolic Panelon 01-12 Anion gap [Moles/Vol] 14.8 mmol/L Normal 6.0-15.0 [facility] Comment on above: Performed By: #### B MP, FE PRO, CBC, [id number] ####[place] [id number] [place] Calcium [Mass/Vol] 8.5 mg/dL Low 8.6-10.3 [facility] Comment on above: Performed By: #### B MP, FE PRO, CBC, [id number] ####[place] [id number] [place] Chloride [Moles/Vol] 104 mmol/L Normal 98-107 [facility] Comment on above: Performed By: #### B MP, FE PRO, CBC, [id number] ####[place] [id number] [place] CO2 [Moles/Vol] 25.4 mmol/L Normal 21.0-31.0 [facility] Comment on above: Performed By: #### B MP, FE PRO, CBC, [id number] ####[place] [id number] [place] Creatinine [Mass/Vol] 3.54 mg/dL High 0.70-1.30 [facility] Comment on above: Performed By: #### B MP, FE PRO, CBC, [id number] ####[place] [id number] [place] [address] [place] Creatinine Clr Calc Pharmacy 17.99 Normal [facility] Comment on above: Result Comment: PERF ORMED BY: [facility] [address] PATHOLOGIST JEWELRY CA[employer]ING [employer]DEL MAKER APPRENTICE MO PALOMO M.D. Performed By: #### B MP, FE PRO, CBC, [id number] ####[place] [id number] [place] [id number] [place] GFR/1.73 sq M.predicted MDRD (S/P/Bld) [Vol rate/Area] 16.382 mL/min/{1.73_m2} Normal [facility] Comment on above: Performed By: #### B MP, FE PRO, CBC, [id number] ####[address] Glucose [Mass/Vol] 105 mg/dL High 70-100 [facility] Comment on above: Result Comment: [facility] Glucose Reference Range is dependent on time and content of last meal. Glucose of more than 200 mg/dL in a nonstressed, ambulatory subject supports the diagnosis of Diabetes Mellitus. ADA recommended reference range Performed By: #### B MP, FE PRO, CBC, [id number] ####[place] [id number] [place] [id number] [place] Potassium [Moles/Vol] 4.2 mmol/L Normal 3.5-5.1 [facility] Comment on above: Performed By: #### B MP, FE PRO, CBC, [id number] ####[place] [id number] [place] [id number] [place] Sodium [Moles/Vol] 140 mmol/L Normal 136-145 [facility] Comment on above: Performed By: #### B MP, FE PRO, CBC, [id number] ####[place] [id number] [place] [id number] [place] Urea nitrogen [Mass/Vol] 69 mg/dL High 7-25 [facility] Comment on above: Performed By: #### B MP, FE PRO, CBC, [id number] ####[address] Complete Blood Count Auto Di ffon 02-06-2024 Basophils (Bld) [#/Vol] 0.0 10*3/uL Normal 0.0-0.2 [facility] Comment on above: Result Comment: PERF ORMED BY: [facility] [address] [place] [address] PATHOLOGIST JEWELRY CASTING MODEL MAKER APPRENTICE MO PALOMO M.D. Performed By: #### B MP, FE PRO, CBC, [id number] ####[address] Basophils/100 WBC (Bld) 0.3 % Normal . [facility] Comment on above: Performed By: #### B MP, FE PRO, CBC, [id number] ####[address] Eosinophils (Bld) [#/Vol] 0.2 10*3/uL Normal 0.0-0.45 [facility] Comment on above: Performed By: #### B MP, FE PRO, CBC, [id number] ####[address] Eosinophils/100 WBC (Bld) 1.9 % Normal . [facility] Comment on above: Performed By: #### B MP, FE PRO, CBC, [id number] ####[address] Erythrocyte distribution width (RBC) [Ratio] 13.8 % Normal 12.0-14.8 [facility] Comment on above: Performed By: #### B MP, FE PRO, CBC, [id number] ####[address] Hematocrit (Bld) [Volume fraction] 31.9 % Low 38.8-50.0 [facility] Comment on above: Performed By: #### B MP, FE PRO, CBC, [id number] ####[address] Hemoglobin (Bld) [Mass/Vol] 10.8 g/dL Low 13.0-17.0 [facility] Comment on above: Performed By: #### B MP, FE PRO, CBC, [id number] ####[address] Lymphocytes (Bld) [#/Vol] 0.7 10*3/uL Low 1.00-4.8 [facility] Comment on above: Performed By: #### B MP, FE PRO, CBC, [id number] ####[address] Lymphocytes/100 WBC (Bld) 6.1 % Normal . [facility] Comment on above: Performed By: #### B MP, FE PRO, CBC, [id number] ####[address] MCH (RBC) [Entitic mass] 33.0 pg Normal 27.5-35.2 [facility] Comment on above: Performed By: #### B MP, FE PRO, CBC, [id number] ####[address] MCV (RBC) [Entitic vol] 97.9 fL Normal 83.5-101 [facility] Comment on above: Performed By: #### B MP, FE PRO, CBC, [id number] ####[address] Mean Corpuscular HGB Conc 33.7 g/dL Normal 32.5-35.6 [facility] Comment on above: Performed By: #### B MP, FE PRO, CBC, [id number] ####[address] Monocytes (Bld) [#/Vol] 0.9 10*3/uL High 0.0-0.8 [facility] Comment on above: Performed By: #### B MP, FE PRO, CBC, [id number] ####[address] Monocytes/100 WBC (Bld) 7.3 % Normal . [facility] Comment on above: Performed By: #### B MP, FE PRO, CBC, [id number] ####[address] Neutrophils (Bld) [#/Vol] 10.2 10*3/uL High 1.8-7.7 [facility] Comment on above: Performed By: #### B MP, FE PRO, CBC, [id number] ####[address] Neutrophils/100 WBC (Bld) 84.4 % Normal . [facility] Comment on above: Performed By: #### B MP, FE PRO, CBC, [id number] ####[address] NRBC% 0.0 /100{WBC} Normal 0-0.5 [facility] Comment on above: Performed By: #### B MP, FE PRO, CBC, [id number] ####[address] Platelet mean volume (Bld) [Entitic vol] 10.4 fL High 6.6-10.1 [facility] Comment on above: Performed By: #### B MP, FE PRO, CBC, [id number] ####[address] Platelets (Bld) [#/Vol] 120 10*3/uL Low 150-450 [facility] Comment on above: Performed By: #### B MP, FE PRO, CBC, [id number] ####[address] RBC (Bld) [#/Vol] 3.26 10*6/uL Low 3.90-5.60 [facility] Comment on above: Performed By: #### B MP, FE PRO, CBC, [id number] ####[address] WBC (Bld) [#/Vol] 12.1 10*3/uL High 4.1-10.5 [facility] Comment on above: Performed By: #### B MP, FE PRO, CBC, [id number] ####[address] FE PROon 02-06-2024 % Iron Saturation 12.3 % Low 20-50 [facility] Comment on above: Performed By: #### B MP, FE PRO, CBC, [id number] ####[address] Total Iron Binding Capacity 253 ug/dL Low 255-450 [facility] Comment on above: Performed By: #### B MP, FE PRO, CBC, [id number] ####[address] Ferritin [Mass/volume] in Se rum or PlasmaOrdered By: Mehnaz Gambino on 02-06-2024 Ferritin [Mass/Vol] 247.6 ng/mL Normal 23.9-336.2 [facility] Comment on above: Performed By: #### B MP, FE PRO, CBC, [id number] ####[address] Folate [Mass/volume] in Seru m or PlasmaOrdered By: Mehnaz Gambino on 02-06-2024 Folate [Mass/Vol] 6.1 ng/mL >5.9 [facility] Comment on above: Folate reference ran ge: >5.9 ng/mlThe WHO technical consultation on folate and vitamin [id number] has determined that folate concentrations lessthan 4 ng/ml are considered deficient. Glucose Poct Glucometerson 0 02-06-2024 Glucose [Mass/Vol] 181 mg/dL Normal [facility] Comment on above: Result Comment: [place] Glucose Reference Range is dependent on time and content of last meal. Glucose of more than 200 mg/dL in a nonstressed, ambulatory subject supports the diagnosis of Diabetes Mellitus. PERFORMED BY: [address] [address] PATHOLOGIST JEWELRY CASTING MODEL MAKER APPRENTICE MO PALOMO M.D. Performed By: #### G LULS ####Point of Care testing, Glucose [Mass/Vol] 157 mg/dL Normal [facility] Comment on above: Result Comment: [facility] Glucose Reference Range is dependent on time and content of last meal. Glucose of more than 200 mg/dL in a nonstressed, ambulatory subject supports the diagnosis of Diabetes Mellitus. PERFORMED BY: [address] [address] PATHOLOGIST JEWELRY CASTING MODEL MAKER APPRENTICE MO PALOMO M.D. Performed By: #### G LULS ####Point of Care testing, Glucose [Mass/Vol] 188 mg/dL Normal [facility] Comment on above: Result Comment: [facility] Glucose Reference Range is dependent on time and content of last meal. Glucose of more than 200 mg/dL in a nonstressed, ambulatory subject supports the diagnosis of Diabetes Mellitus. PERFORMED BY: [address] [address] PATHOLOGIST JEWELRY CASTING MODEL MAKER APPRENTICE MO PALOMO M.D. Performed By: #### G LULS #### Point of Care testing , Glucose [Mass/Vol] 104 mg/dL Normal [facility] Comment on above: Result Comment: [facility] Glucose Reference Range is dependent on time and content of last meal. Glucose of more than 200 mg/dL in a nonstressed, ambulatory subject supports the diagnosis of Diabetes Mellitus. PERFORMED BY: [address] [address] PATHOLOGIST JEWELRY CASTING MODEL MAKER APPRENTICE MO PALOMO M.D. Performed By: #### G LULS ####Point of Care testing, Iron [Mass/volume] in Serum or PlasmaOrdered By: Mehnaz Gambino on 02-06-2024 Iron [Mass/Vol] 31 ug/dL Low 50-212 [facility] Comment on above: Performed By: #### B MP, FE PRO, CBC, [id number] ####[facility] [id number] [place] [address] [place] Iron binding capacity [Mass/ volume] in Serum or PlasmaOrdered By: Mehnaz Gambino on 02-06-2024 Iron binding capacity [Mass/Vol] 253 ug/dL Low 255-450 [facility] Iron saturation [Mass Fracti on] in Serum or PlasmaOrdered By: Mehnaz Gambino on 02-06-2024 Iron saturation [Mass fraction] 12.3 % Low 20-50 [facility] Transferrin [Mass/volume] in Serum or PlasmaOrdered By: Mehnaz Gambino on 02-06-2024 Transferrin [Mass/Vol] 181 mg/dL Low 203-362 [facility] Comment on above: Performed By: #### B MP, FE PRO, CBC, [id number] ####[facility] [address] [place] [address] [place] Vit. B12/Folate Profileon Folate 6.1 ng/mL Normal >5.9 [facility] Comment on above: Result Comment: Yudi te reference range: >5.9 ng/ml The WHO technical consultation on folate and vitamin b12 deficiencies has determined that folate concentrations less than 4 ng/ml are considered deficient. PERFORMED BY: [facility] [address] [facility] [place] [address] PATHOLOGIST JEWELRY CASTING MODEL MAKER APPRENTICE MO PALOMO M.D. Performed By: #### G LULS #### Point of Care testing , Vitamin B12 ser/plasOrdered By: Mehnaz Gambino on 02-06-2024 Cobalamin (Vitamin B12) [Mass/Vol] 207 pg/mL Normal 180-914 [facility] Comment on above: Performed By: #### G LULS #### Point of Care testing , Basic Metabolic Panelon 01-12 Anion gap [Moles/Vol] 14.6 mmol/L Normal 6.0-15.0 [facility] Comment on above: Performed By: #### G LULS #### Point of Care testing , Calcium [Mass/Vol] 8.6 mg/dL Normal 8.6-10.3 [facility] Comment on above: Performed By: #### G LULS #### Point of Care testing , Chloride [Moles/Vol] 105 mmol/L Normal 98-107 [facility] Comment on above: Performed By: #### G LULS #### Point of Care testing , CO2 [Moles/Vol] 24.0 mmol/L Normal 21.0-31.0 [facility] Comment on above: Performed By: #### G LULS #### Point of Care testing , Creatinine [Mass/Vol] 3.53 mg/dL High 0.70-1.30 [facility] Comment on above: Performed By: #### G LULS #### Point of Care testing , Creatinine Clr Calc Pharmacy 18.09 Normal [facility] Comment on above: Result Comment: PERF ORMED BY: [place] [address] [place] [address] PATHOLOGIST JEWELRY CASTING MODEL MAKER APPRENTICE MO PALOMO M.D. Performed By: #### G LULS #### Point of Care testing , GFR/1.73 sq M.predicted MDRD (S/P/Bld) [Vol rate/Area] 16.438 mL/min/{1.73_m2} Normal [facility] Comment on above: Performed By: #### G LULS #### Point of Care testing , Glucose [Mass/Vol] 175 mg/dL High 70-100 [facility] Comment on above: Result Comment: [place] Glucose Reference Range is dependent on time and content of last meal. Glucose of more than 200 mg/dL in a nonstressed, ambulatory subject supports the diagnosis of Diabetes Mellitus. ADA recommended reference range Performed By: #### G LULS #### Point of Care testing , Potassium [Moles/Vol] 4.6 mmol/L Normal 3.5-5.1 [facility] Comment on above: Performed By: #### G LULS #### Point of Care testing , Sodium [Moles/Vol] 139 mmol/L Normal 136-145 [facility] Comment on above: Performed By: #### G LULS #### Point of Care testing , Urea nitrogen [Mass/Vol] 63 mg/dL High 7-25 [facility] Comment on above: Performed By: #### G LULS #### Point of Care testing , Complete Blood Count Auto Di ffon 02-05-2024 Basophils (Bld) [#/Vol] 0.0 10*3/uL Normal 0.0-0.2 [facility] Comment on above: Result Comment: PERF ORMED BY: [facility] [place] [address] PATHOLOGIST JEWELRY CASTING MODEL MAKER APPRENTICE MO PALOMO M.D. Performed By: #### G LULS #### Point of Care testing , Basophils/100 WBC (Bld) 0.2 % Normal . T emma [facility] Comment on above: Performed By: #### G LULS #### Point of Care testing , Eosinophils (Bld) [#/Vol] 0.0 10*3/uL Normal 0.0-0.45 [facility] Comment on above: Performed By: #### G LULS #### Point of Care testing , Eosinophils/100 WBC (Bld) 0.1 % Normal . [facility] Comment on above: Performed By: #### G LULS #### Point of Care testing , Erythrocyte distribution width (RBC) [Ratio] 13.6 % Normal 12.0-14.8 [facility] Comment on above: Performed By: #### G LULS #### Point of Care testing , Hematocrit (Bld) [Volume fraction] 33.7 % Low 38.8-50.0 [facility] Comment on above: Performed By: #### G LULS #### Point of Care testing , Hemoglobin (Bld) [Mass/Vol] 11.2 g/dL Low 13.0-17.0 [facility] Comment on above: Performed By: #### G LULS #### Point of Care testing , Lymphocytes (Bld) [#/Vol] 0.4 10*3/uL Low 1.00-4.8 [facility] Comment on above: Performed By: #### G LULS #### Point of Care testing , Lymphocytes/100 WBC (Bld) 3.3 % Normal . [facility] Comment on above: Performed By: #### G LULS #### Point of Care testing , MCH (RBC) [Entitic mass] 32.8 pg Normal 27.5-35.2 [facility] Comment on above: Performed By: #### G LULS #### Point of Care testing , MCV (RBC) [Entitic vol] 98.5 fL Normal 83.5-101 [facility] Comment on above: Performed By: #### G LULS #### Point of Care testing , Mean Corpuscular HGB Conc 33.3 g/dL Normal 32.5-35.6 [facility] Comment on above: Performed By: #### G LULS #### Point of Care testing , Monocytes (Bld) [#/Vol] 0.6 10*3/uL Normal 0.0-0.8 [facility] Comment on above: Performed By: #### G LULS #### Point of Care testing , Monocytes/100 WBC (Bld) 4.6 % Normal . [facility] Comment on above: Performed By: #### G LULS #### Point of Care testing , Neutrophils (Bld) [#/Vol] 11.3 10*3/uL High 1.8-7.7 [facility] Comment on above: Performed By: #### G LULS #### Point of Care testing , Neutrophils/100 WBC (Bld) 91.8 % Normal . [facility] Comment on above: Performed By: #### G LULS #### Point of Care testing , NRBC% 0.0 /100{WBC} Normal 0-0.5 [facility] Comment on above: Performed By: #### G LULS #### Point of Care testing , Platelet mean volume (Bld) [Entitic vol] 10.1 fL Normal 6.6-10.1 [facility] Comment on above: Performed By: #### G LULS #### Point of Care testing , Platelets (Bld) [#/Vol] 123 10*3/uL Low 150-450 [facility] Comment on above: Performed By: #### G LULS #### Point of Care testing , RBC (Bld) [#/Vol] 3.42 10*6/uL Low 3.90-5.60 [facility] Comment on above: Performed By: #### G LULS #### Point of Care testing , WBC (Bld) [#/Vol] 12.3 10*3/uL High 4.1-10.5 [facility] Comment on above: Performed By: #### G LULS #### Point of Care testing , Glucose Poct Glucometerson 0 02-05-2024 Glucose [Mass/Vol] 153 mg/dL Normal [facility] Comment on above: Result Comment: [place] Glucose Reference Range is dependent on time and content of last meal. Glucose of more than 200 mg/dL in a nonstressed, ambulatory subject supports the diagnosis of Diabetes Mellitus. PERFORMED BY: [place] [id number] PATHOLOGIST JEWELRY CASTING MODEL MAKER APPRENTICE MO PALOMO M.D. Performed By: #### G LULS #### Point of Care testing , Glucose [Mass/Vol] 149 mg/dL Normal [facility] Comment on above: Result Comment: [place] Glucose Reference Range is dependent on time and content of last meal. Glucose of more than 200 mg/dL in a nonstressed, ambulatory subject supports the diagnosis of Diabetes Mellitus. PERFORMED BY: [place] [id number] PATHOLOGIST JEWELRY CASTING MODEL MAKER APPRENTICE MO PALOMO M.D. Performed By: #### G LULS #### Point of Care testing , Glucose [Mass/Vol] 187 mg/dL Normal [facility] Comment on above: Result Comment: [facility] Glucose Reference Range is dependent on time and content of last meal. Glucose of more than 200 mg/dL in a nonstressed, ambulatory subject supports the diagnosis of Diabetes Mellitus. PERFORMED BY: [address] [address] PATHOLOGIST JEWELRY CASTING MODEL MAKER APPRENTICE MO PALOMO M.D. Performed By: #### G LULS #### Point of Care testing , Glucose [Mass/Vol] 203 mg/dL Normal [facility] Comment on above: Result Comment: [facility] Glucose Reference Range is dependent on time and content of last meal. Glucose of more than 200 mg/dL in a nonstressed, ambulatory subject supports the diagnosis of Diabetes Mellitus. PERFORMED BY: [facility] [address] [place] [address] PATHOLOGIST JEWELRY CASTING MODEL MAKER APPRENTICE MO PALOMO M.D. Performed By: #### G LULS ####Point of Care testing, ABO/Rh Retypeon 02-04-2024 ABO/RH Recheck Result Positive Normal [facility] Comment on above: Result Comment: PERF ORMED BY: [facility] [address] [place] [address] PATHOLOGIST JEWELRY CASTING MODEL MAKER APPRENTICE MO PALOMO M.D. Activated partial thrombopla stin time (aPTT) in platelet poor plasma by coagulation aOrdered By: Azra Farah on 02-04-2024 aPTT Coag (PPP) [Time] 30.4 s 25.1-36.5 [facility] Comment on above: A hematocrit value g reater than 55% may lead to inaccurate results in coagulation testing. Patients having hematocrit values >55% require a special collection tube for coagulation studies. Please contact the laboratory at [phone] for redraw instructions. Basic Metabolic Panelon 01-12 Anion gap [Moles/Vol] 13.8 mmol/L Normal 6.0-15.0 [facility] Comment on above: Performed By: #### G LULS #### Point of Care testing , Calcium [Mass/Vol] 8.5 mg/dL Low 8.6-10.3 [facility] Comment on above: Performed By: #### G LULS #### Point of Care testing , Chloride [Moles/Vol] 103 mmol/L Normal 98-107 [facility] Comment on above: Performed By: #### G LULS #### Point of Care testing , CO2 [Moles/Vol] 24.6 mmol/L Normal 21.0-31.0 [facility] Comment on above: Performed By: #### G LULS #### Point of Care testing , Creatinine [Mass/Vol] 3.55 mg/dL High 0.70-1.30 [facility] Comment on above: Performed By: #### G LULS #### Point of Care testing , Creatinine Clr Calc Pharmacy 17.84 Normal [facility] Comment on above: Performed By: #### G LULS #### Point of Care testing , GFR/1.73 sq M.predicted MDRD (S/P/Bld) [Vol rate/Area] 16.327 mL/min/{1.73_m2} Normal [facility] Comment on above: Performed By: #### G LULS #### Point of Care testing , Glucose [Mass/Vol] 108 mg/dL High 70-100 [facility] Comment on above: Result Comment: [facility] Glucose Reference Range is dependent on time and content of last meal. Glucose of more than 200 mg/dL in a nonstressed, ambulatory subject supports the diagnosis of Diabetes Mellitus. ADA recommended reference range Performed By: #### G LULS #### Point of Care testing , Potassium [Moles/Vol] 4.4 mmol/L Normal 3.5-5.1 [facility] Comment on above: Performed By: #### G LULS #### Point of Care testing , Sodium [Moles/Vol] 137 mmol/L Normal 136-145 [facility] Comment on above: Performed By: #### G LULS #### Point of Care testing , Urea nitrogen [Mass/Vol] 58 mg/dL High 7-25 [facility] Comment on above: Performed By: #### G LULS #### Point of Care testing , Complete Blood Count Auto Di ffon 02-04-2024 Basophils (Bld) [#/Vol] 0.0 10*3/uL Normal 0.0-0.2 [facility] Comment on above: Result Comment: PERF ORMED BY: [facility] [place] [address] PATHOLOGIST JEWELRY CASTING MODEL MAKER APPRENTICE MO PALOMO M.D. Performed By: #### G LULS #### Point of Care testing , Basophils/100 WBC (Bld) 0.3 % Normal . [facility] Comment on above: Performed By: #### G LULS #### Point of Care testing , Eosinophils (Bld) [#/Vol] 0.1 10*3/uL Normal 0.0-0.45 [facility] Comment on above: Performed By: #### G LULS #### Point of Care testing , Eosinophils/100 WBC (Bld) 1.2 % Normal . [facility] Comment on above: Performed By: #### G LULS #### Point of Care testing , Erythrocyte distribution width (RBC) [Ratio] 13.5 % Normal 12.0-14.8 [facility] Comment on above: Performed By: #### G LULS #### Point of Care testing , Hematocrit (Bld) [Volume fraction] 37.4 % Low 38.8-50.0 [facility] Comment on above: Performed By: #### G LULS #### Point of Care testing , Hemoglobin (Bld) [Mass/Vol] 12.3 g/dL Low 13.0-17.0 [facility] Comment on above: Performed By: #### G LULS #### Point of Care testing , Lymphocytes (Bld) [#/Vol] 0.6 10*3/uL Low 1.00-4.8 [facility] Comment on above: Performed By: #### G LULS #### Point of Care testing , Lymphocytes/100 WBC (Bld) 4.9 % Normal . [facility] Comment on above: Performed By: #### G LULS #### Point of Care testing , MCH (RBC) [Entitic mass] 32.2 pg Normal 27.5-35.2 [facility] Comment on above: Performed By: #### G LULS #### Point of Care testing , MCV (RBC) [Entitic vol] 97.9 fL Normal 83.5-101 [facility] Comment on above: Performed By: #### G LULS #### Point of Care testing , Mean Corpuscular HGB Conc 32.9 g/dL Normal 32.5-35.6 [facility] Comment on above: Performed By: #### G LULS #### Point of Care testing , Monocytes (Bld) [#/Vol] 0.7 10*3/uL Normal 0.0-0.8 [facility] Comment on above: Performed By: #### G LULS #### Point of Care testing , Monocytes/100 WBC (Bld) 5.5 % Normal . [facility] Comment on above: Performed By: #### G LULS #### Point of Care testing , Neutrophils (Bld) [#/Vol] 10.5 10*3/uL High 1.8-7.7 [facility] Comment on above: Performed By: #### G LULS #### Point of Care testing , Neutrophils/100 WBC (Bld) 88.1 % Normal . [facility] Comment on above: Performed By: #### G LULS #### Point of Care testing , NRBC% 0.0 /100{WBC} Normal 0-0.5 [facility] Comment on above: Performed By: #### G LULS #### Point of Care testing , Platelet mean volume (Bld) [Entitic vol] 10.4 fL High 6.6-10.1 [facility] Comment on above: Performed By: #### G LULS #### Point of Care testing , Platelets (Bld) [#/Vol] 130 10*3/uL Low 150-450 [facility] Comment on above: Performed By: #### G LULS #### Point of Care testing , RBC (Bld) [#/Vol] 3.82 10*6/uL Low 3.90-5.60 [facility] Comment on above: Performed By: #### G LULS #### Point of Care testing , WBC (Bld) [#/Vol] 11.9 10*3/uL High 4.1-10.5 [facility] Comment on above: Performed By: #### G LULS #### Point of Care testing , ECG 12 lead ECGon 02-04-2024 ECG 12 lead ECG [address] [place] [address] Electrocardiograph Report Signed Patient: Apolinar Norman MR#: [id number] : 1940 Acct:[id number] Age/Sex: 84 / M ADM Date: 02/03/24 Loc: 4N Room: [address] [place] [address] Type: ADM IN Attending Dr: Mere Nelson MD Ordering Provider: Azra Farah APRN Date of Service: 02/04/24 ECG/ECG 12 lead ECG: fall, left hip fracture Copies to: Test Reason : Blood Pressure : */* mmHG Vent. Rate : 67 BPM Atrial Rate : 67 BPM P-R Int : 248 ms QRS Dur : 136 ms QT Int : 492 ms P-R-T Axes : 61 -38 65 degrees QTcB Int : 519 ms AV dual-paced rhythm with prolonged AV conduction with frequent premature ventricular complexes Abnormal ECG When compared with ECG of 17-Sep-2023 13:40, Electronic ventricular pacemaker has replaced Electronic atrial pacemaker Confirmed by CRUZITO TAYLOR MD ([id number]) on 02/05/2024 3:56:55 PM Referred By: Electronically Signed By: CRUZITO TAYLOR MD Transcribed By: MUS Signed By Cruzito Taylor MD 0 02/05/24 1556 Normal [facility] ECH echo transthoracicon ECH echo transthoracic [place] [address] Echocardiogram Signed Patient: Apolinar Norman MR#: [id number] : 1940 Acct:[id number] Age/Sex: 84 / M ADM Date: 02/03/24 Loc: 4N Room: [address] [place] [address] Type: ADM IN Attending Dr: Mere Nelson MD Ordering Provider: Julio C Renee DO Date of Service: 02/04/24 ECH/ECH echo transthoracic: preop Copies to: MD Julio C Jeffries DO AM Patient Location: : 1940 Gender: Male (MM/DD/YYYY) Age: 84 Years Ordering Physician: Julio C Renee Height: 70 in Weight: 202.605 lb Performed By: Nina Hill RDCS BSA: 2.10 m2 BP: 106 / 76 mmHg HR: 72 bpm Reason For Study: preop History: CABG, CAD, Pacemaker, Hypertension, Hyperlipidemia, NC, PVD, PCI, Former smoker + ----+ Interpretation Summary Ejection Fraction = 55-60%. The left ventricular size, thickness and function are normal Apical wall motion abnormality may reflect pacemaker activation. The left atrium appears moderately dilated. There is mild mitral regurgitation. There is mild tricuspid regurgitation. The right ventricular systolic pressure is 45 mmHg. Right ventricular systolic pressure is consistent with moderate pulmonary hypertension. Pacemaker wire seen There is no comparison study available. Procedure/Quality: A two-dimensional transthoracic echocardiogram with color flow and Doppler was performed. The study was technically fair in quality. Left Ventricle: The left ventricular size, thickness and function are normal. Ejection Fraction = 55- 60%. Apical wall motion abnormality may reflect pacemaker activation. Left Atrium: The left atrium appears moderately dilated. The atrial septum appears normal. Right Atrium: The right atrium appears normal in size. Right Ventricle: The right ventricular size, thickness and function are normal. Aortic Valve: The aortic valve is normal in structure and function. No aortic regurgitation is present. Mitral Valve: The mitral valve is mildly sclerotic. There is mild mitral regurgitation. Tricuspid Valve: The tricuspid valve is normal in structure and function. There is mild tricuspid regurgitation. The right ventricular systolic pressure is 45 mmHg. Right ventricular systolic pressure is consistent with moderate pulmonary hypertension. Pulmonic Valve: The pulmonic valve is normal in structure and function. Mild pulmonic valvular regurgitation. Arteries: The aortic root is normal size. Pericardium/Pleura: No pericardial effusion seen. There is no pleural effusion. IVC/Hepatic Veins: The inferior vena cava is normal in size, with a normal collapsibility index. Miscellaneous: Pacemaker wire seen. MMode/2D Measurements Calculations IVSd (0.7-1.1 cm): 1.15 cm LVIDd (3.7-5.4 cm): 4.9 cm LVPWd (0.7-1.1 cm): 1.00 cm LVIDs (2.3-3.6 cm): 3.5 cm LA dimension (2.3-4.0 cm): 4.9 Ao root diam (2.0-3.2 cm): 3.8 cm cm FS: 27.3 % Ao root area: 11.4 cm2 EDV(Teich): 110.7 ml LAV(MOD-sp2): 124.0 ml ESV(Teich): 52.1 ml LAV(MOD-sp4): 81.0 ml EF(Teich): 52.9 % LA A2 area: 33.6 cm2 LA A4 area: 27.0 cm2 LA length (vol): 7.2 cm LA vol: 106.4 ml LA vol index: 50.7 ml/m2 Doppler Measurements Calculations MV E max briana: 59.6 cm/sec Ao V2 max: 149.3 cm/sec MV A max briana: 87.0 cm/sec Ao max P.9 mmHg MV dec time: 0.21 sec Ao mean P.3 mmHg E/E' lat: 7.0 Ao V2 mean: 98.4 cm/sec E/E' med: 14.4 Ao V2 VTI: 30.7 cm TV max P.0 mmHg LV V1 max: 80.2 cm/sec TR max briana: 337.8 cm/sec LV V1 max P.6 mmHg TR max P.7 mmHg LV V1 mean: 53.5 cm/sec RAP systole: 3.0 mmHg LV V1 mean P.31 mmHg LV V1 VTI: 20.5 cm + -+ + ---+ -+ : Electronically : : : : signed : : by: BLADIMIR Young. : : : : MD BRANDON : : : : on: 02/04/2024, : : : : 12:29 PM : Transcribed By: SCV Performed At: 02/04/24 0843 Signed By: Cruzito Taylor MD 02/04/24 1229 Normal [facility] Glucose Poct Glucometerson 0 02-04-2024 Glucose [Mass/Vol] 241 mg/dL Normal [facility] Comment on above: Result Comment: [place] Glucose Reference Range is dependent on time and content of last meal. Glucose of more than 200 mg/dL in a nonstressed, ambulatory subject supports the diagnosis of Diabetes Mellitus. PERFORMED BY: [address] [address] PATHOLOGIST JEWELRY CASTING MODEL MAKER APPRENTICE MO PALOMO M.D. Performed By: #### G LULS #### Point of Care testing , Glucose [Mass/Vol] 125 mg/dL Normal [facility] Comment on above: Result Comment: [facility] Glucose Reference Range is dependent on time and content of last meal. Glucose of more than 200 mg/dL in a nonstressed, ambulatory subject supports the diagnosis of Diabetes Mellitus. PERFORMED BY: [address] [address] PATHOLOGIST JEWELRY CASTING MODEL MAKER APPRENTICE MO PALOMO M.D. Performed By: #### G LULS #### Point of Care testing , Glucose [Mass/Vol] 113 mg/dL Normal [facility] Comment on above: Result Comment: [facility] Glucose Reference Range is dependent on time and content of last meal. Glucose of more than 200 mg/dL in a nonstressed, ambulatory subject supports the diagnosis of Diabetes Mellitus. PERFORMED BY: [facility] [address] [place] [address] PATHOLOGIST JEWELRY CASTING MODEL MAKER APPRENTICE MO PALOMO M.D. Performed By: #### G LULS #### Point of Care testing , Glucose [Mass/Vol] 100 mg/dL Normal [facility] Comment on above: Result Comment: [place] Glucose Reference Range is dependent on time and content of last meal. Glucose of more than 200 mg/dL in a nonstressed, ambulatory subject supports the diagnosis of Diabetes Mellitus. PERFORMED BY: [address] [place] [address] PATHOLOGIST JEWELRY CASTING MODEL MAKER APPRENTICE MO PALOMO M.D. Performed By: #### G LULS #### Point of Care testing , Glucose [Mass/Vol] 106 mg/dL Normal [facility] Comment on above: Result Comment: [facility] Glucose Reference Range is dependent on time and content of last meal. Glucose of more than 200 mg/dL in a nonstressed, ambulatory subject supports the diagnosis of Diabetes Mellitus. PERFORMED BY: [address] [place] [address] PATHOLOGIST JEWELRY CASTING MODEL MAKER APPRENTICE MO PALOMO M.D. Performed By: #### G LULS #### Point of Care testing , INR in Platelet poor plasma by Coagulation assayOrdered By: Azra Farah on 02-04-2024 INR Coag (PPP) [Relative time] 1.0 {INR} Normal [facility] Comment on above: INR Therapeutic Rang e A) Pre- and Peroperative OAT started two weeks before surgery. NOT HIP SURGERY: 1.5 - 2.5 HIP SURGERY: 2 - 3B) Primary and secondary prevention of venous THROMBOSIS: 2 - 3C) Active venous thrombosis, pulmonary embolismand prevention of recurrent venous thrombosis: 2 - 3D) Prevention of arterial thromboembolismincluding patients with mechanical heart valves: 3 - 4.5 Result Comment: INR Therapeutic Range A) Pre- and Peroperative OAT started two weeks before surgery. NOT HIP SURGERY: 1.5 - 2.5 HIP SURGERY: 2 - 3 B) Primary and secondary prevention of venous THROMBOSIS: 2 - 3 C) Active venous thrombosis, pulmonary embolism and prevention of recurrent venous thrombosis: 2 - 3 D) Prevention of arterial thromboembolism including patients with mechanical heart valves: 3 - 4.5 Performed By: #### G LULS #### Point of Care testing , Joss 02-04-2024 L Specimen: [id number] Received: 02/05/24 Status: ANTONIA Talbert Num: [id number] Spec Type: Surgical Subm Dr: Zion Oneal MD Tissues: A Femoral Head - Fracture (LT HIP) Procedures: HE/2, Gross/Micro L4, Decalcification Age/ Patient Sex Location Account Attending Physician Apolinar Norman 84/M 4N [id number] Mere Nelson MD SPEC NUM: [id number] RECD: 02/05/24 STATUS: ANTONIA TALBERT NUM: [id number] FAROOQ: 02/04/24- SUBM DR: Zion Oneal MD ENTERED: 02/05/[address] [facility] DR: SPEC TYPE: Surgical DEPT: S ORDERED: HE/2, Gross/Micro L4, Decalcification ORDERED: HE/2, Gross/Micro L4, Decalcification Pathological Diagnosis Bone and tissue, left hip, arthroplasty: Intertrabecular hemorrhage, consistent with fracture. Clinical Information Hip fracture Gross Description Received in formalin, labeled with the patient's name, date of and bone and tissue left hip, is a 5.2 cm in diameter spherical femoral head with a rough and jagged resection margin through the neck and an aggregate of hemorrhagic, garcia-pink to yellow soft tissue measuring 7.9 x 4.6 x 2.0 cm. The articular surface is garcia, dull and contains a 2.6 x 1.1 cm finely granular area. The specimen is sectioned, revealing no lesions or necrosis. The specimen is representatively submitted in A1 (bone, fracture site inked green, following decalcification) and A2 (bone with articular surface and soft tissue, following decalcification). CPT Codes 16259 Specimen: [id number] Received: 02/05/24 Status: ANTONIA Talbert Num: [id number] Spec Type: Surgical Subm Dr: Zion Oneal MD Tissues: A Femoral Head - Fracture (LT HIP) Procedures: HE/2, Gross/Micro L4, Decalcification Patient: Apolinar Norman [id number] (Continued) Signed (signature on file) Miryam Rivas MD 02/09/241701 Normal [facility] Magnesium [Mass/volume] in S jorge a or PlasmaOrdered By: Azra Farah on 02-04-2024 Magnesium [Mass/Vol] 2.2 mg/dL Normal 1.9-2.7 [facility] Comment on above: Result Comment: PERF ORMED BY: [facility] [place] [address] PATHOLOGIST JEWELRY CASTING MODEL MAKER APPRENTICE MO PALOMO M.D. Performed By: #### G RAMIRO #### Point of Care testing , Partial Thromboplastin Timeo n 02-04-2024 aPTT Coag (Bld) [Time] 30.4 s Normal 25.1-36.5 [facility] Comment on above: Result Comment: A he matocrit value greater than 55% may lead to inaccurate results in coagulation testing. Patients having hematocrit values >55% require a special collection tube for coagulation studies. Please contact the laboratory at [phone] for redraw instructions. PERFORMED BY: [address] [address] PATHOLOGIST JEWELRY CASTING MODEL MAKER APPRENTICE MO PALOMO M.D. Performed By: #### G LULS #### Point of Care testing , Prothrombin time (PT)Ordered By: Azra Farah on 02-04-2024 PT Coag (PPP) [Time] 12.1 s Normal 9.0-12.9 [facility] Comment on above: A hematocrit value g reater than 55% may lead to inaccurate results in coagulation testing. Patients having hematocrit values >55% require a special collection tube for coagulation studies. Please contact the laboratory at [phone] for redraw instructions. Result Comment: A he matocrit value greater than 55% may lead to inaccurate results in coagulation testing. Patients having hematocrit values >55% require a special collection tube for coagulation studies. Please contact the laboratory at [phone] for redraw instructions. Performed By: #### G LULS #### Point of Care testing , Type and Screenon 02-04-2024 ABO and Rh group Nom (Bld) Blood group A Rh(D) positive Normal [facility] Comment on above: Result Comment: PERF ORMED BY: [address] [address] PATHOLOGIST JEWELRY CASTING MODEL MAKER APPRENTICE MO PALOMO M.D. XR femur LT 2V*on 02-04-2024 XR femur LT 2V* [facility] Main [address] [address] XRay Report Signed Patient: Apolinar Norman MR#: [id number] : 1940 Acct:[id number] Age/Sex: 84 / M ADM Date: 02/03/24 Loc: Room: 9Y0945-7 Type: ADM IN Attending Dr: Mere Nelson MD Copies to: DO Mere Cowan MD Ordering Provider: Immanuel Burk DO Date of Service: 02/04/24 XR/XR femur LT 2V*: hip fx Left femur 2 views. Reason for exam: Left hip fracture yesterday. COMPARISON: Outside study 02/03/2024. FINDINGS: The patient's left femoral neck fracture is grossly unchanged when compared to the prior study. The distal aspect of the left femur appear intact. Vascular calcifications with stents noted. XR/XR femur LT 2V* IMPRESSION: Left femoral neck fracture, grossly similar to the prior study. No fracture is seen distally. Impression dictated by: Titi Guaman Jr., D.OVania02/04/2024 8:36 AM Dictation Location: [place] [address] Transcribed By: [facility] 02/04/24 0836 Dictated By: Titi Guaman Jr, DO 02/04/24 0834 Signed By: 02/04/24 0836 Normal [facility] XR hip LT 1Von 02-04-2024 XR hip LT 1V [facility] [place] [address] XRay Report Signed Patient: Apolinar Norman MR#: [id number] : 1940 Acct:[id number] Age/Sex: 84 / M ADM Date: 02/03/24 Loc: 4N Room: 0J2195-6 Type: ADM IN Attending Dr: Mere Nelson MD Copies to: MD Zion Blandon MD Ordering Provider: Zion Oneal MD Date of Service: 02/04/24 XR/XR hip LT 1V: Hip Fracture Post op XR hip LT 1V 02/04/2024 4:03 PM SIGNS AND SYMPTOMS: Status post left hip arthroplasty PROTOCOL: 02/03/2024 COMPARISON: None FINDINGS: Left hip hemiarthroplasty hardware placement is noted. The hardware is intact and in anatomic alignment. There is no fracture or dislocation. Atherosclerotic changes are noted along with vascular stents within the left thigh. Subcutaneous emphysema is noted laterally in the left hip. XR/XR hip LT 1V IMPRESSION: Interval placement of an uncomplicated hemiarthroplasty hardware in the left hip. No fracture or dislocation. Impression dictated by: Jarad Gan M.D.02/04/2024 4:05 PM Dictation Location: [place] [address] Transcribed By: CHRISTOPHER 02/04/24 1605 Dictated By: Jarad Gan II, MD 02/04/24 1604 Signed By: 02/04/24 1605 Normal [facility] Glucose Poct Glucometerson 0 02-03-2024 Glucose [Mass/Vol] 93 mg/dL Normal [facility] Comment on above: Result Comment: [facility] Glucose Reference Range is dependent on time and content of last meal. Glucose of more than 200 mg/dL in a nonstressed, ambulatory subject supports the diagnosis of Diabetes Mellitus. PERFORMED BY: [place] [address] PATHOLOGIST JEWELRY CASTING MODEL MAKER APPRENTICE MO PALOMO M.D. Performed By: #### G LULS #### Point of Care testing , US ankle/arm indiceson 12-10 US ankle/arm indices [facility] [address] [place] [address] Ultrasound Report Signed Patient: Apolinar Norman MR#: [id number] : 1940 Acct:[id number] Age/Sex: 83 / M ADM Date: 12/09/23 Loc: [facility] Room: Type: [facility] Attending Dr: Sameera Jolley [employer] Ordering Provider: Sameera Jolley APRN Date of Service: 12/09/23 US/US ankle/arm indices: I73.9 - Peripheral vascular disease, unspecified Copies to: Sameera Jolley APRN LOWER EXTREMITY SEGMENTAL ARTERIAL DOPSCAN (PVR) INDICATION: Claudication PROCEDURE: Right arm blood pressure is 166. Pressures of the right leg are 59 at the ankle using the posterior tibial artery and 66 at the ankle using the dorsalis pedis artery with ankle-brachial index of 0.40 0.36 . Pressures of the left leg are 84 at the ankle using the posterior tibial artery and 114 at the ankle using the dorsalis pedis artery with ankle-brachial index of 0.69 0.51 . Wave forms by plethysmography are biphasic, bilaterally. 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 Impression dictated by: Melvin Christianson MD12/11/2023 8:31 AM Dictation Location: [place] [address] Tech: Madhuri Borjas Transcribed By: [facility] 12/11/23830 Dictated By: Melvin Christianson MD 12/11/23830 Signed By: 12/11/23830 Normal [facility] Glucose Glucometer (BldC) [M ass/Vol]Ordered By: Hussein Talavera on 10-01-2023 Glucose [Mass/Vol] 105 mg/dL [facility] Comment on above: Random Glucose Refer ence Range is dependent on time and content of last meal. Glucose of more than 200 mg/dL in a nonstressed, ambulatory subject supports the diagnosis of Diabetes Mellitus. No Panel InformationOrdered By: Hussein Talavera on 10-01-2023 Bedside Glucose Comment Glu2: cleaned meter [facility] Alanine aminotransferase [En zymatic activity/volume] in Serum or PlasmaOrdered By: Hussein Talavera on 09-17-2023 ALT [Catalytic activity/Vol] 19 U/L 7-52 [facility] Albumin [Mass/volume] in Ser um or Plasma by Bromocresol green (BCG) dye binding methoOrdered By: Hussein Talavera on 09-17-2023 Albumin BCG dye [Mass/Vol] 4.0 g/dL 3.5-5.7 [facility] Alkaline phosphatase [Enzyma tic activity/volume] in Serum or PlasmaOrdered By: Hussein Talavera on 09-17-2023 ALP [Catalytic activity/Vol] 66 U/L 34-104 [facility] Aspartate aminotransferase [ Enzymatic activity/volume] in Serum or PlasmaOrdered By: Hussein Talavera on 09-17-2023 AST [Catalytic activity/Vol] 19 U/L 13-39 [facility] Basophils Auto (Bld) [#/Vol] Ordered By: Hussein Talavera on 09-17-2023 Basophils (Bld) [#/Vol] 0.0 10*3/uL 0.0-0.2 [facility] Basophils/100 WBC Auto (Bld) Ordered By: Hussein Talavera on 09-17-2023 Basophils/100 WBC (Bld) 0.6 % . [facility] Bilirubin.total [Mass/volume ] in Serum or PlasmaOrdered By: Hussein Talavera on 09-17-2023 Bilirubin [Mass/Vol] 0.7 mg/dL 0.3-1.0 [facility] Calcium [Mass/volume] in Ser um or PlasmaOrdered By: Hussein Talavera on 09-17-2023 Calcium [Mass/Vol] 8.7 mg/dL 8.6-10.3 [facility] Carbon dioxide, total [Moles /volume] in Serum or PlasmaOrdered By: Hussein Talavera on 09-17-2023 CO2 [Moles/Vol] 27.6 mmol/L 21.0-31.0 [facility] Chloride [Moles/volume] in S jorge a or PlasmaOrdered By: Hussein Talavera on 09-17-2023 Chloride [Moles/Vol] 104 mmol/L 98-107 [facility] Creatinine [Mass/volume] in Serum or PlasmaOrdered By: Hussein Talavera on 09-17-2023 Creatinine [Mass/Vol] 3.60 mg/dL 0.70-1.30 [facility] Eosinophils Auto (Bld) [#/Vo l]Ordered By: Hussein Talavera on 09-17-2023 Eosinophils (Bld) [#/Vol] 0.2 10*3/uL 0.0-0.45 [facility] Eosinophils/100 WBC Auto (Bl d)Ordered By: Hussein Talavera on 09-17-2023 Eosinophils/100 WBC (Bld) 2.5 % . [facility] Erythrocyte distribution wid th Auto (RBC) [Ratio]Ordered By: Hussein Talavera on 09-17-2023 Erythrocyte distribution width (RBC) [Ratio] 14.0 % 12.0-14.8 [facility] Globulin Calc (S) [Mass/Vol] Ordered By: Hussein Talavera on 09-17-2023 Globulin (S) [Mass/Vol] 2.1 g/dL [facility] Glucose [Mass/volume] in Ser um or PlasmaOrdered By: Hussein Talavera on 09-17-2023 Glucose [Mass/Vol] 71 mg/dL 70-100 [facility] Comment on above: ADA recommended refe rence rangeRandom Glucose Reference Range is dependent on time and content of last meal. Glucose of more than 200 mg/dL in a nonstressed, ambulatory subject supports the diagnosis of Diabetes Mellitus. Hematocrit Auto (Bld) [Volum e fraction]Ordered By: Hussein Talavera on 09-17-2023 Hematocrit (Bld) [Volume fraction] 37.9 % 38.8-50.0 [facility] Hemoglobin [Mass/volume] in BloodOrdered By: Hussein Talavera on 09-17-2023 Hemoglobin (Bld) [Mass/Vol] 12.5 g/dL 13.0-17.0 [facility] Leukocytes [#/volume] correc mario for nucleated erythrocytes in Blood by Automated counOrdered By: Hussein Talavera on 09-17-2023 WBC corrected for nucl RBC Auto (Bld) [#/Vol] 6.3 10*3/uL 4.1-10.5 [facility] Lymphocytes Auto (Bld) [#/Vo l]Ordered By: Hussein Talavera on 09-17-2023 Lymphocytes (Bld) [#/Vol] 1.2 10*3/uL 1.00-4.8 [facility] Lymphocytes/100 WBC Auto (Bl d)Ordered By: Hussein Talavera on 09-17-2023 Lymphocytes/100 WBC (Bld) 18.5 % . [facility] MCH Auto (RBC) [Entitic mass ]Ordered By: Hussein Talavera on 09-17-2023 MCH (RBC) [Entitic mass] 32.7 pg 27.5-35.2 [facility] MCHC Auto (RBC) [Mass/Vol]Or dered By: Hussein Talavera on 09-17-2023 MCHC (RBC) [Mass/Vol] 33.0 g/dL 32.5-35.6 [facility] MCV Auto (RBC) [Entitic vol] Ordered By: Hussein Talavera on 09-17-2023 MCV (RBC) [Entitic vol] 99.1 fL 83.5-101 [facility] Monocytes Auto (Bld) [#/Vol] Ordered By: Hussein Talavera on 09-17-2023 Monocytes (Bld) [#/Vol] 0.5 10*3/uL 0.0-0.8 [facility] Monocytes/100 WBC Auto (Bld) Ordered By: Hussein Talavera on 09-17-2023 Monocytes/100 WBC (Bld) 8.5 % . [facility] Neutrophils Auto (Bld) [#/Vo l]Ordered By: Hussein Talavera on 09-17-2023 Neutrophils (Bld) [#/Vol] 4.4 10*3/uL 1.8-7.7 [facility] Neutrophils/100 WBC Auto (Bl d)Ordered By: Hussein Talavera on 09-17-2023 Neutrophils/100 WBC (Bld) 69.9 % . [facility] No Panel InformationOrdered By: Hussein Talavera on 09-17-2023 Estimated GFR (CKD-EPI) 16.156 mL/Min [facility] Creatinine Clearance (Chem N/A [facility] Nucleated erythrocytes [Pres ence] in Blood by Automated countOrdered By: Hussein Talavera on 09-17-2023 Nucleated RBC Auto Ql (Bld) 0.1 /100{WBC} 0-0.5 [facility] Platelet mean volume Auto (B ld) [Entitic vol]Ordered By: Hussein Talavera on 09-17-2023 Platelet mean volume (Bld) [Entitic vol] 10.0 fL 6.6-10.1 [facility] Platelets Auto (Bld) [#/Vol] Ordered By: Hussein Talavera on 09-17-2023 Platelets (Bld) [#/Vol] 152 10*3/uL 150-450 [facility] Potassium [Moles/volume] in Serum or PlasmaOrdered By: Hussein Talavera on 09-17-2023 Potassium [Moles/Vol] 4.3 mmol/L 3.5-5.1 [facility] Protein [Mass/volume] in Ser um or PlasmaOrdered By: Hussein Talavera on 09-17-2023 Protein [Mass/Vol] 6.1 g/dL 6.4-8.9 [facility] RBC Auto (Bld) [#/Vol]Ordere d By: Hussein Talavera on 09-17-2023 RBC (Bld) [#/Vol] 3.82 10*6/uL 3.90-5.60 [facility] Serum or plasma albumin/glob ulin mass ratioOrdered By: Hussein Talavera on 09-17-2023 Albumin/Globulin [Mass ratio] 1.9 {ratio} [facility] Serum or plasma anion gap de terminationOrdered By: Hussien Talavera on 09-17-2023 Anion gap [Moles/Vol] 14.7 mmol/L 6.0-15.0 [facility] Sodium [Moles/volume] in Ser um or PlasmaOrdered By: Hussein Talavera on 09-17-2023 Sodium [Moles/Vol] 142 mmol/L 136-145 [facility] Urea nitrogen [Mass/volume] in Serum or PlasmaOrdered By: Hussein Talavera on 09-17-2023 Urea nitrogen [Mass/Vol] 49 mg/dL 7-25 [facility] WBC Auto (Bld) [#/Vol]Ordere d By: Hussein Talavera on 09-17-2023 WBC (Bld) [#/Vol] 6.3 10*3/uL 4.1-10.5 [facility] Aspartate aminotransferase [ Enzymatic activity/volume] in Serum or PlasmaOrdered By: Tawanda Murdock on 09-02-2023 AST [Catalytic activity/Vol] 18 U/L 13-39 [facility] Calcium [Mass/volume] in Ser um or PlasmaOrdered By: Tawanda Murdock on 02-20-2024 Calcium [Mass/Vol] 8.7 mg/dL 8.6-10.3 [facility] Carbon dioxide, total [Moles /volume] in Serum or PlasmaOrdered By: Tawanda Murdock on 09-02-2023 CO2 [Moles/Vol] 28.8 mmol/L 21.0-31.0 [facility] Chloride [Moles/volume] in S jorge a or PlasmaOrdered By: Tawanda Murdock on 09-02-2023 Chloride [Moles/Vol] 106 mmol/L 98-107 [facility] Creatinine [Mass/volume] in Serum or PlasmaOrdered By: Tawanda Murdock on 09-02-2023 Creatinine [Mass/Vol] 3.12 mg/dL 0.70-1.30 [facility] Glucose [Mass/volume] in Ser um or PlasmaOrdered By: Tawanda Murdock on 09-02-2023 Glucose [Mass/Vol] 105 mg/dL 70-100 [facility] Comment on above: ADA recommended refe rence rangeRandom Glucose Reference Range is dependent on time and content of last meal. Glucose of more than 200 mg/dL in a nonstressed, ambulatory subject supports the diagnosis of Diabetes Mellitus. No Panel InformationOrdered By: Tawanda Murdock on 09-02-2023 Estimated GFR (CKD-EPI) 19.183 mL/Min [facility] Creatinine Clearance (Chem N/A [facility] Potassium [Moles/volume] in Serum or PlasmaOrdered By: Tawanda Murdock on 09-02-2023 Potassium [Moles/Vol] 4.8 mmol/L 3.5-5.1 [facility] Serum or plasma anion gap de terminationOrdered By: Tawanda Murdock on 09-02-2023 Anion gap [Moles/Vol] 13.0 mmol/L 6.0-15.0 [facility] Sodium [Moles/volume] in Ser um or PlasmaOrdered By: Tawanda Murdock on 09-02-2023 Sodium [Moles/Vol] 143 mmol/L 136-145 [facility] Thyrotropin [Units/volume] i n Serum or PlasmaOrdered By: Tawanda Murdock on 02-20-2024 TSH Qn 1.68 m[IU]/L 0.45-5.33 [facility] Urea nitrogen [Mass/volume] in Serum or PlasmaOrdered By: Tawanda Murdock on 09-02-2023 Urea nitrogen [Mass/Vol] 34 mg/dL 7-25 [facility] - Hematology and Cell countson 08-21-2023 HbA1c (Bld) [Mass fraction] 6.0 % [facility] No Panel Informationon 08-21 [facility] Aspartate aminotransferase [ Enzymatic activity/volume] in Serum or PlasmaOrdered By: Tawanda Murdock on 01-16-2023 AST [Catalytic activity/Vol] 17 U/L 13-39 [facility] Calcium [Mass/volume] in Ser um or PlasmaOrdered By: Tawanda Murdock on 01-16-2023 Calcium [Mass/Vol] 8.7 mg/dL 8.6-10.3 [facility] Carbon dioxide, total [Moles /volume] in Serum or PlasmaOrdered By: Tawanda Murdock on 01-16-2023 CO2 [Moles/Vol] 27.2 mmol/L 21.0-31.0 [facility] Chloride [Moles/volume] in S jorge a or PlasmaOrdered By: Tawanda Murdock on 01-16-2023 Chloride [Moles/Vol] 104 mmol/L 98-107 [facility] Creatinine [Mass/volume] in Serum or PlasmaOrdered By: Tawanda Murdock on 01-16-2023 Creatinine [Mass/Vol] 3.33 mg/dL 0.70-1.30 [facility] Glucose [Mass/volume] in Ser um or PlasmaOrdered By: Tawanda Murdock on 01-16-2023 Glucose [Mass/Vol] 106 mg/dL 70-100 [facility] Comment on above: ADA recommended refe rence rangeRandom Glucose Reference Range is dependent on time and content of last meal. Glucose of more than 200 mg/dL in a nonstressed, ambulatory subject supports the diagnosis of Diabetes Mellitus. No Panel InformationOrdered By: Tawanda Murdock on 01-16-2023 Estimated GFR (CKD-EPI) 17.851 mL/Min [facility] Creatinine Clearance (Chem N/A [facility] Potassium [Moles/volume] in Serum or PlasmaOrdered By: Tawanda Murdock on 01-16-2023 Potassium [Moles/Vol] 4.4 mmol/L 3.5-5.1 [facility] Serum or plasma anion gap de terminationOrdered By: Tawanda Murdock on 01-16-2023 Anion gap [Moles/Vol] 12.2 mmol/L 6.0-15.0 [facility] Sodium [Moles/volume] in Ser um or PlasmaOrdered By: Tawanda Murdock on 01-16-2023 Sodium [Moles/Vol] 139 mmol/L 136-145 [facility] Thyrotropin [Units/volume] i n Serum or PlasmaOrdered By: Tawanda Murdock on 01-16-2023 TSH Qn 1.95 m[IU]/L 0.45-5.33 [facility] Urea nitrogen [Mass/volume] in Serum or PlasmaOrdered By: Tawanda Murdock on 01-16-2023 Urea nitrogen [Mass/Vol] 41 mg/dL 7-25 [facility] Office Visiton 09-04-2022 Follow-up visit [id number] Apolinar Norman 1940 M Date Provider Department Center 09/04/2022 [facility] No family history on file Level of Service:91730 [place] POSTOP FOLLOW UP VISIT RELATED TO ORIGINAL PX Reason for Visit and Comments: Post-op [483] Normal [facility] HISTOLOGY - TISSUE EXAMon LAB AP CASE REPORT Normal [facility] Comment on above: Order Comment: Pre-o p diagnosis: Olecranon bursitis of left elbow [M70.22] Result Comment: Surg ical Pathology Case: [id number] Authorizing Provider: Nuvia Joseph MD Collected: 08/26/2022 1358 Ordering Location: [facility] Received: 08/26/2022 1434 [facility] Main OR Pathologist: Roxi Bonilla MD Specimen: Elbow, LEFT ELBOW OLECRANON BURSA Performed By: #### L [id number] #### [facility] ([facility]) [address] [place] [address] LAB AP CLINICAL INFORMATION [facility] Comment on above: Order Comment: Pre-o p diagnosis: Olecranon bursitis of left elbow [M70.22] Result Comment: Post -Op Diagnoses M70.22 - Olecranon bursitis of left elbow [ICD-10-CM] Performed By: #### L [id number] #### [facility] ([facility]) [address] [place] [address] LAB AP GROSS DESCRIPTION A. Elbow. [facility] Comment on above: Order Comment: Pre-o p diagnosis: Olecranon bursitis of left elbow [M70.22] Result Comment: Rece ived in formalin , labeled Apolinar Norman, LEFT ELBOW OLECRANON BURSA . The specimen consists of a 5.0 x 4.8 x 1.5 cm in thickness roughly round rubbery fragment with a central opening that measures 2 cm in diameter located 0.7 cm from the edge of the resection. The outer surface is a rosales to pale yellow smooth and glistening with multiple adhesions of soft fatty tissue. The inner lining is rosales to garcia smooth and glistening. The area around the opening is inked green. The wall ranges from 0.4 to 1.2 cm in thickness. No masses or lesions are identified. Aircraft Time Clerk sections are submitted in 4 cassettes. Saw Cerna, Pathologists' Cushion Mat Maker Performed By: #### L [id number] #### [facility] ([facility]) [address] [place] [address] LAB AP MICROSCOPIC DESCRIPTION Microscopic examination performed. [facility] Comment on above: Order Comment: Pre-o p diagnosis: Olecranon bursitis of left elbow [M70.22] Performed By: #### L [id number] #### [facility] ([facility]) [address] [place] [address] LAB AP REPORT FINAL DIAGNOSIS NARRATIVE [facility] Comment on above: Order Comment: Pre-o p diagnosis: Olecranon bursitis of left elbow [M70.22] Result Comment: Soft tissue, left elbow olecranon bursa, excision: - Benign cyst with granulomatous lining and acute inflammation with surrounding fibrosis and increased vascularity, consistent with inflamed bursa Performed By: #### L [id number] #### [facility] (SHAQ) [address] [place] [address] HPon 08-26-2022 HP H&P reviewed. The patient was examined and there are no changes to the H&P. Normal [facility] OPNOTEon 08-26-2022 OPNOTE BURSECTOMY OF THE OLECRANON (L) Operative Note Date: 08/26/2022 Location: [facility] OR Name: Apolinar Norman, : 1940, Diagnosis Pre-op Diagnosis * Olecranon bursitis of left elbow [M70.22] Post-op Diagnosis * Olecranon bursitis of left elbow [M70.22] Procedures BURSECTOMY OF THE OLECRANON 49087 - [place] EXCISION OLECRANON BURSA Excision sinus left elbow Surgeons * Nuvia Opal - Primary Procedure Summary Anesthesia: Regional ASA: III Estimated Blood Loss: 5 mL Specimens ID Source Type Tests Collected By Collected At Frozen? Priority Lab ID 1 Elbow Tissue TISSUE CULTURE AND ANAEROBIC CULTURE Nuvia Joseph MD 08/26/22 1350 Routine [id number], [id number] Description: LEFT ELBOW BURSAL TISSUE A Elbow Tissue HISTOLOGY - TISSUE EXAM Nuvia Joseph MD 08/26/22 1358 No Routine Description: LEFT ELBOW OLECRANON BURSA Staff: Electrical Design Technologist: Sarah Loyola RN Scrub Person: Keke Heredia CST Indications: Apolinar Norman is an 82 y.o. male who is having surgery for Olecranon bursitis of left elbow [M70.22]. Procedure Details: The patient was seen in the preoperative area. The risks, benefits, complications, treatment options, non-operative alternatives, expected recovery and outcomes were discussed with the patient. The possibilities of reaction to medication, pulmonary aspiration, injury to surrounding structures, bleeding, recurrent infection, the need for additional procedures, failure to diagnose a condition, and creating a complication requiring transfusion or operation were discussed with the patient. The patient concurred with the proposed plan, giving informed consent. The site of surgery was properly noted/marked if necessary per policy. The patient has been actively warmed in preoperative area. Preoperative antibiotics have been ordered and given within 1 hours of incision. Venous thrombosis prophylaxis are not indicated. Findings: Noted was that there was a draining sinus to the left elbow. There was no kp purulence. Bursal sac was significantly inflamed which is communicating to the skin through the sinus. Under regional static, patient's left upper extremity was prepped and draped for the proposed procedure. Tourniquet applied to left proximal humerus was inflated to 250 mmHg following a gentle exsanguination of the extremity. An incision was made on the posterior aspect of elbow incorporating a sinus which had been ellipsed. Sharp dissection was then used to delineate the bursal sac followed with completion of dissection with the use of tenotomy scissors. Hemostasis was obtained with the use of bipolar cautery. Upon complete dissection the ulnar nerve was noted within the dissection and preserved. Tissue sample was procured for microbiological studies and the bursal sac was sent for definitive pathological exam. Wound then thoroughly irrigated with normal sign solution and closed in layers 3-0 Vicryl to the subcutaneous level and skin closed with a 4 oh Novofem established in running mattress fashion. Sterile dressing was applied and compression applied from the wrist to the elbow level. Complications: None; patient tolerated the procedure well. Disposition: PACU - hemodynamically stable. Condition: stable Nuvia Opal Normal [facility] POCT GLUCOSE METER UNSOLICIT ED RESULTSon 08-26-2022 Glucose [Mass/Vol] 99 mg/dL Normal 70-105 [facility] Comment on above: Result Comment: [email or web address] Performed By: #### L [id number] #### [facility] ([facility]) [address] [place] [address] Glucose [Mass/Vol] 108 mg/dL High 70-105 [facility] Comment on above: Result Comment: [email or web address] Performed By: #### L [id number] #### [facility] ([facility]ER) [address] [place] [address] TISSUE CULTUREon 08-26-2022 Clindamycin [Susc] >2 Resistant [facility] Comment on above: Order Comment: Pre-o p diagnosis:Olecranon bursitis of left elbow [M70.22] Performed By: #### L [id number] #### [facility] ([facility]) [address] [place] [address] Oxacillin [Susc] >1 Resistant [facility] Comment on above: Order Comment: Pre-o p diagnosis:Olecranon bursitis of left elbow [M70.22] Performed By: #### L [id number] #### [facility] ([facility]) [address] [place] [address] Tetracycline [Susc] >8 Resistant [facility] Comment on above: Order Comment: Pre-o p diagnosis:Olecranon bursitis of left elbow [M70.22] Performed By: #### L [id number] #### [facility] ([facility]) [address] [place] [address] Trimethoprim+Sulfametho xazole [Susc] 0.125 Susceptible Susceptible <=2 , Resistant >2 [facility] Comment on above: Order Comment: Pre-o p diagnosis:Olecranon bursitis of left elbow [M70.22] Performed By: #### L [id number] #### [facility] ([facility]) [address] [place] [address] Vancomycin [Susc] 2 ug/ml Susceptible [facility] Comment on above: Order Comment: Pre-o p diagnosis:Olecranon bursitis of left elbow [M70.22] Performed By: #### L [id number] #### [facility] (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) Renal insufficiency (593.9) (N28.9) Stage 4 chronic kidney disease (585.4) (N18.4) Overweight with body mass index (BMI) of 28 to 28.9 in adult (278.02,V85.24) (E66.3,Z68.28) Former smoker (V15.82) (Z87.891) Orders Arrhythmia, ventricular IO EKG Electrocardiogram- 12 Lead; Status:Complete; Done: 13Aug2022 CAD (coronary artery disease) Renew: Aspirin EC 81 MG Oral Tablet Delayed Release; TAKE 1 TABLET DAILY Hyperlipidemia Renew: Atorvastatin Calcium 80 MG Oral Tablet; TAKE 1 TABLET DAILY Overweight with body mass index (BMI) of 28 to 28.9 in adult Healthy Weight Tips; Status:Complete; Done: 13Aug2022 Some eating tips that can help you lose weight.; Status:Complete; Done: 13Aug2022 SocHx: Former smoker Tobacco Use Screening; Status:Complete; Done: 13Aug2022 Patient Instructions Please bring all medicines, vitamins, and herbal supplements with you when you come to the office. Prescriptions will not be filled unless you are compliant with your follow up appointments or have a follow up appointment scheduled as per instruction of your physician. Refills should be requested at the time of your visit. FALL PREVENTION EDUCATION GIVEN Follow up in 6 months Pacemaker/Defibrillator follow up per routine Amiodarone follow up per routine Chief Complaint Apolinar NORMAN is being seen for a 6 month follow-up of. History of Present Illness Patient returns prematurely in follow-up of problems as noted. In the interim he has had no angina CHF or arrhythmia symptomatology. He has none of the symptoms of coronary disease that preceded prior bypass surgery and/or PTCA. We had provided preoperative risk assessment to his surgeon but much to their surprise the surgeon as well as anesthesiology considered him too risky to undergo the procedure and consequently they turned him down. He thereafter sought consultation in [place] and they wish to proceed with surgery. I will provide correspondence to them articulating his condition. Review of management for risk factors including lipids hypertension and diabetes demonstrates satisfactory control. His recent pacemaker checks are also satisfactory and demonstrate no arrhythmia breakthrough or device malfunction. We reviewed with him, again, his personal reason and/or rationale for not undergoing revascularization is recommended. He states he fears that his renal insufficiency is advanced and that he would be at high risk for dialysis. I understand his concerns. Fortunately he is asymptomatic. He was educated extensively regarding the importance of seeking attention if problems or symptoms arise. Lastly we discussed and reviewed the merits of amiodarone screening including PFTs, chest x-ray and lab. Previous testing was reviewed with him and it is satisfactory. Surgical History Problems History of Angioplasty History of Cardiac catheterization with stent placement History of Carotid artery catheterization History of Complete colonoscopy History of Coronary artery bypass graft History of Pacemaker insertion History of Percutaneous transluminal coronary angioplasty femoral artery Past Medical History Problems History of class II angina pectoris (V12.59) (Z86.79) Resolved Date: 05 Nov 2021 Current Meds Medication NameInstruction Albuterol Sulfate HFA 108 (90 Base) MCG/ACT Inhalation Aerosol SolutionINHALE 2 PUFFS EVERY 4 HOURS NEEDED Amiodarone HCl - 200 MG Oral TabletTake 1 tablet daily Aspirin EC 81 MG Oral Tablet Delayed ReleaseTAKE 1 TABLET DAILY. Atorvastatin Calcium 80 MG Oral TabletTAKE 1 TABLET DAILY. Clopidogrel Bisulfate 75 MG Oral TabletTAKE 1 TABLET DAILY. Dicyclomine HCl - 20 MG Oral TabletTAKE 1 TABLET TWICE DAILY. glyBURIDE 1.25 MG Oral TabletTAKE 1 TABLET DAILY. Isosorbide Mononitrate ER 30 MG Oral Tablet Extended Release 24 HourTAKE 1 TABLET DAILY. Lasix TABSTAKE 1 TABLET DAILY. - unsure of mg Levothyroxine Sodium 100 MCG Oral TabletTAKE 1 TABLET DAILY. Metoprolol Succinate ER 100 MG Oral Tablet Extended Release 24 HourTAKE 1 TABLET DAILY. Nitroglycerin 0.4 MG Sublingual Tablet SublingualDISSOLVE 1 TABLET UNDER THE TONGUE NEEDED FOR CHEST PAIN. Omeprazole 40 MG Oral Capsule Delayed ReleaseTAKE 1 CAPSULE Daily Vitamin C 1000 MG Oral TabletTAKE 1 TABLET DAILY. Allergies Medication EDILMA Inhibitors Adverse Reaction; renal insuffency; Recorded By: Wendi Deal; 01/15/2022 12:15:20 PM levofloxacin Allergy; Rash; Recorded By: Юлия Luna; 05/14/2021 10:51:32 AM Penicillins Rash; Swelling; Updated By: Deysi Zhu; 05/04/2021 9:29:38 AM Social History Problems Alcohol use (V49.89) (Z78.9) [employer] DA (more content not included)... Normal [employer] Tobacco Screening.on 023 Adult depression screening assessment No [facility] [employer] 250 DO Work Phone: Fall risk assessment a) No falls within the last year [facility] [employer] 250 DO Work Phone: Tobacco use status [facility] b) No [facility] [employer] 250 DO Work Phone: Consulton 08-08-2022 Consult [id number] Apolinar Norman 1940 M Date Provider Department Center 08/08/2022 [facility] No family history on file Level of Service:23617 [place] OFFICE/OUTPATIENT NEW LOW MDM 30-44 MINUTES Reason for Visit and Comments: New Patient [632] Edema [[id number]] Drainage from Incision [[id number]] Normal [facility] HPon 08-08-2022 Orthopedic Surgery Subjective New Patient, Edema, and Drainage from Incision of the Left Elbow 08/11/22 Apolinar Norman is a 82 y.o. year old yoqun-ngqu-dstqgejl male presenting symptomatic draining left olecranon bursa. Patient has had refractory draining from the left olecranon bursa related to when he had sustained a fall in February of last year. He has undergone different forms of treatment including aspirations and steroid injections but has not had any complete resolution. From the history it appears as if he has not yet been complicated with any infection. He reports he has obtained cardiac clearance to proceed with surgical treatment. Patient History Past Surgical History: Procedure Laterality Date CARDIAC SURGERY CAROTID STENT No past medical history on file. Objective General: Body mass index is 27.89 kg/m???. No acute distress, comfortable Respiratory: Unlabored breathing with normal rate, no cough Cardiovascular: Warm well perfused extremities Psych: Appropriate mood behavior MSK: Examination of his left elbow revealed swelling of the left olecranon bursa measuring 5X 5 cm. There is no significant erythema. There is minimal serous discharge present. Range of motion was normal. He was assessed to be neurovascular intact. Assessment/Plan Apolinar Norman is a 82 y.o. year old male with presenting with symptomatic left olecranon bursa probable aseptic bursitis. Patient was scheduled to proceed with excision left olecranon bursa. Normal [facility] Creatinine and Glomerular fi ltration rate.predicted panel (S/P/Bld)Ordered By: Tawanda Murdock on 04-18-2022 Creatinine [Mass/Vol] 2.75 mg/dL 0.64-1.27 [facility] Estimated glomerular filtrat ion rate (GFR) non- AmericanOrdered By: Tawanda Murdock on 04-18-2022 GFR/1.73 sq M.predicted among non-blacks MDRD (S/P/Bld) [Vol rate/Area] 22 mL/Min [facility] No Panel InformationOrdered By: Tawanda Murdock on 04-18-2022 Estimated GFR () 27 mL/Min [facility] Comment on above: GFR estimated refere nce range: According to KDOQI guidelines, <60 ml/min/1.73m2 is sufficient to diagnose a patient with chronic kidney disease. Pharmacy Creatinine Clearance (Chem N/A [facility] No Panel Informationon 04-18 18\S\18 Normal 10-42 [facility] [facility] 250 DO Work Phone: 2.63\S\2.63 Normal 0.45-5.33 [facility] [employer] 250 DO Work Phone: Comment on above: PERFORMED BY:[facility] [place], [place] [id number] MEDICAL DIRECTORMO PALOMO M.D. 14.3\S\14.3 Normal 6.0-15.0 [facility] 250 DO Work Phone: 8.9\S\8.9 Normal 8.2-10.2 [facility] [facility] 250 DO Work Phone: 26.9\S\26.9 Normal 22.0-30.0 [facility] [employer] 250 DO Work Phone: 100\S\100 Normal 95-114 [facility] [employer] 250 DO Work Phone: 4.2\S\4.2 Normal 3.5-5.1 [facility] [employer] 250 DO Work Phone: 137\S\137 Normal 136-146 [facility] [employer] 250 DO Work Phone: 27\S\27 Normal [facility] [employer] 250 DO Work Phone: Comment on above: GFR estimated refere nce range: According to KDOQI guidelines, <60 ml/min/1.73m2 is sufficient to diagnose a patient with chronic kidney disease. 22\S\22 Normal [facility] [employer] 250 DO Work Phone: 2.75\S\2.75 above high threshold 0.64-1.27 [facility] [employer] 250 DO Work Phone: 36\S\36 above high threshold 9-23 [facility] [employer] 250 DO Work Phone: 74\S\74 Normal 70-100 [facility] [employer] 250 DO Work Phone: Comment on above: Random Glucose Refer ence Range is dependent on time and content of last meal. Glucose of more than 200 mg/dL in a nonstressed, ambulatory subject supports the diagnosis of Diabetes Mellitus. ADA recommended reference range Serum or plasma anion gap de terminationOrdered By: Tawanda Murdock on 04-18-2022 Anion gap [Moles/Vol] 14.3 mmol/L 6.0-15.0 [facility] Serum or plasma aspartate am inotransferase measurement (enzymatic activity/volume)Ordered By: Tawanda Murdock on 04-18-2022 AST [Catalytic activity/Vol] 18 U/L [facility] Serum or plasma calcium rachel urement (mass/volume)Ordered By: Tawanda Murdock on 04-18-2022 Calcium [Mass/Vol] 8.9 mg/dL 8.2-10.2 [facility] Serum or plasma chloride maico surement (moles/volume)Ordered By: Tawanda Murdock on 04-18-2022 Chloride [Moles/Vol] 100 mmol/L 95-114 [facility] Serum or plasma glucose rachel urement (mass/volume)Ordered By: Tawanda Murdock on 04-18-2022 Glucose [Mass/Vol] 74 mg/dL 70-100 [facility] Comment on above: ADA recommended refe rence rangeRandom Glucose Reference Range is dependent on time and content of last meal. Glucose of more than 200 mg/dL in a nonstressed, ambulatory subject supports the diagnosis of Diabetes Mellitus. Serum or plasma potassium me asurement (moles/volume)Ordered By: Tawanda Murdock on 04-18-2022 Potassium [Moles/Vol] 4.2 mmol/L 3.5-5.1 [facility] Serum or plasma sodium measu rement (moles/volume)Ordered By: Tawanda Murdock on 04-18-2022 Sodium [Moles/Vol] 137 mmol/L 136-146 [facility] Serum or plasma total carbon dioxide measurement (moles/volume)Ordered By: Tawanda Murdock on 04-18-2022 CO2 [Moles/Vol] 26.9 mmol/L 22.0-30.0 [facility] Serum or plasma urea nitroge n measurement (mass/volume)Ordered By: Tawanda Murdock on 04-18-2022 Urea nitrogen [Mass/Vol] 36 mg/dL 9-23 [facility] TSH DL <= 0.005 mIU/L QnOrde red By: Tawanda Murdock on 04-18-2022 TSH Qn 2.63 m[IU]/L 0.45-5.33 [facility] Office Visit (Cardiology)on 04-10-2022 Follow-up visit Diagnoses/Problems Assessed CAD (coronary artery disease) (414.00) (I25.10) April 26, 2021 cardiac cath Left main occluded pRCA 80-90% SVG- CX/Sera 80% GRAFT isr MAYA-LAD patent No intervention d/t CKD Daily activity 4 METs without symptoms Benign essential hypertension (401.1) (I10) Optimal in office Hyperlipidemia (272.4) (E78.5) High intensity statin December 2021 LDL 111: HDL 33 Will repeat lipids Arrhythmia, ventricular (427.9) (I49.9) Noted October 2021 OV with amiodarone start Denies palpitations High risk medication use (V58.69) (Z79.899) Amiodarone start date October 2021 Is due for testing in near future (scheduled) ECG in office apaced, QTc 464 on amio 200 Cardiac pacemaker in situ (V45.01) (Z95.0) [place] Strap Accolade dual-chamber permanent pacemaker February 2022 device interrogation vp product marketing 6% Echocardiogram abnormal (793.2) (R93.1) Feb 2022 Echo LVEF 55% LA moderate dilated MR mild/moderate RVSP 58 PVD (peripheral vascular disease) (443.9) (I73.9) Managed Vascular DM (diabetes mellitus) (250.00) (E11.9) On statin No EDILMA/ARB d/t CKD Stage 4 chronic kidney disease (585.4) (N18.4) CR 2.7 - 3.2 Nephrology f/u Overweight with body mass index (BMI) of 27 to 27.9 in adult (278.02,V85.23) (E66.3,Z68.27) Reviewed the merits of healthy lifestyle choices on overall cardiovascular health. Orders CAD (coronary artery disease), Hyperlipidemia ALT - Alanine Aminotransferase, Serum; Status:Active; Requested for:[id number]; AST; Status:Active; Requested for:[id number]; Lipid Panel; Status:Active; Requested for:[id number]; Overweight with body mass index (BMI) of 27 to 27.9 in adult Healthy Weight Tips; Status:Complete; Done: [id number] Patient Instructions Please bring all medicines, vitamins, and herbal supplements with you when you come to the office. Prescriptions will not be filled unless you are compliant with your follow up appointments or have a follow up appointment scheduled as per instruction of your physician. Refills should be requested at the time of your visit. PLAN: Through informed decision making process incorporating patients unique circumstances, the following treatment plan will be initiated: 1. Prescription drug management of cardiovascular medication for efficacy, adherence to treatment, side effect assessment and polypharmacy. Current treatment clinically warranted and to continue without modifications. 2. Return for follow-up; in the interim, contact the office if new symptoms arise. Dr. Murdock as scheduled 3. Repeat lipid profile with next lab draw Discussed the dynamic nature of coronary artery disease and the importance of seeking medical attention if new symptoms arise. Chief Complaint Hospital f/u: 'doing just fine' Apolinar NORMAN is being seen for follow-up of a hospitalization for chest pain. Patient is ambulatory with steady gait. Accompanied by daughter. Patient was recently hospitalized at [facility]. The patient was seen in Cardiology consult with subsequent cardiovascular management by [facility]. Hospitalization records have been reviewed. Reason for Cardiology Consultation: chest pain Consulting Pattern Grader: Dr. Murdock Cardiovascular testing: Echo Changes to cardiovascular medical regimen at time of discharge: toprol increased 100mg daily Discharge disposition: Home Discharge CR 3.2 - has f/u with Nephrology next month. Since discharge, lasix was added due to increased lower extremity edema. PAD - reports no plans for intervention, re-schedule outpt f/u. Remains with FC II claudication, no open wounds. Overall reports 'doing good I guess'. He continues to be active around the house without anginal symptoms or ntg use. He is not limiting activities to avoid angina. He does report 'tiring' easily - denies worsening since increased toprol. Secondary Prevention: December 2021 LDL 111 (no change in statin with Apr 2021 LDL 61) - will recheck with next lab draw. Despite CAD, he remains stable with active anginal symptoms. History of Present Illness The patient states he has been generally doing well since the last visit. Comorbid Illnesses: diabetes mellitus, hypertension and hyperlipidemia. Symptoms: denies chest pain at rest, denies exertional chest pain, denies dyspnea, stable fatigue, stable exercise intolerance, denies palpitations, denies edema, denies orthopnea, denies dizziness and denies orthostatic dizziness. Associated symptoms: no syncope. His symptoms do not limit his activities. Disease Monitoring: Medications: the patient is adherent with his medication regimen. He denies medication side effects. Surgical History Problems History of Angioplasty History of Cardiac catheterization with stent placement History of Carotid artery catheterization History of Complete colonoscopy History of Coronary artery bypass graft History of Pacemaker insertion History of Percutaneous tr (more content not included)... Normal [employer] Tobacco Screening.on 09-28-2 022 Fall risk assessment b) One or more fall s in the last year [facility] DO Work Phone: Tobacco use status CPHS b) No M [facility] lk 600 DO Work Phone: MAGNESIUMon 03-11-2022 Magnesium [Mass/Vol] 1.8 mg/dL Normal 1.8-2.4 [facility] Comment on above: Performed By: #### R ENAL, MG #### [facility] [address] [place] [address] Dr. Zo Evans RENAL FUNCTION PANELon 03-11 Albumin [Mass/Vol] 3.3 g/dL Critically low 3.4-5.0 [facility] Comment on above: Performed By: #### R ENAL, MG #### [facility] [address] [place] [address] Dr. Zo Evans Calcium [Mass/Vol] 8.0 mg/dL Critically low 8.5-10.1 [facility] Comment on above: Performed By: #### R ENAL, MG #### [facility] [address] [address] [address] Zo Evans Chloride [Moles/Vol] 103 mmol/L Normal 98-107 [facility] Comment on above: Performed By: #### R ENAL, MG #### [facility] [address] [address] [address] Zo Evans CO2 [Moles/Vol] 26.9 mmol/L Normal 21.0-32.0 [facility] Comment on above: Performed By: #### R ENAL, MG #### [facility] [address] [address] [address] Zo Evans Creatinine [Mass/Vol] 2.65 mg/dL Critically high 0.70-1.30 [facility] Comment on above: Performed By: #### R ENAL, MG #### [facility] [address] [place] [address] Dr. Zo Evans EGFR-AF EGYPTIAN 28 mL/min/1.73m2 Critically low >=60 [facility] Comment on above: Performed By: #### R ENAL, MG #### [facility] [address] [address] [address] Zo Evans EGFR-NON AF EGYPTIAN 23 mL/min/1.73m2 Critically low >=60 [facility] Comment on above: Performed By: #### R ENAL, MG #### [facility] [address] [place] [address] Dr. Zo Evans Glucose [Mass/Vol] 112 mg/dL Critically high 74-106 [facility] Comment on above: Performed By: #### R ENAL, MG #### [facility] [address] [place] [address] Dr. Zo Evans Phosphate [Mass/Vol] 3.6 mg/dL Normal 2.6-4.7 [facility] Comment on above: Performed By: #### R ENAL, MG #### [facility] [address] [place] [address] Dr. Zo Evans Potassium [Moles/Vol] 3.5 mmol/L Normal 3.5-5.1 [facility] Comment on above: Performed By: #### R ENAL, MG #### [facility] [address] [place] [address] Dr. Zo Evans Sodium [Moles/Vol] 139 mmol/L Normal 136-145 [facility] Comment on above: Performed By: #### R ENAL, MG #### [facility] [address] [place] [address] Dr. Zo Evans Urea nitrogen [Mass/Vol] 24.0 mg/dL Critically high 7.0-18.0 [facility] Comment on above: Performed By: #### R ENAL, MG #### [facility] [address] [place] [address] Dr. Zo Evans XR CHEST 2 Von 02-20-2022 XR CHEST 2 V EXAM: XR CHEST 2 V HISTORY: . Hypoxemia . COMPARISON: None. TECHNIQUE: Frontal and lateral chest FINDINGS: Heart is mildly enlarged. Bipolar pacing device is noted. Vascularity is unremarkable. There are infiltrates in the right upper as well as the right lower lobe along with a small right effusion. There is a small amount of atelectasis versus early infiltrate in the left lung base. There is a small left effusion. Atherosclerotic changes of the thoracic aorta are noted. Diffuse spondylosis of the spine is noted. IMPRESSION: 1. Pneumonitis involving the right upper as well as a right lower lobe along with a small right effusion. 2. Atelectasis versus early infiltrate in the left lung base along with a small left effusion. 3. Cardiac enlargement with pacer in place. Electronically authenticated by: PALLAVI LOPEZ Date: 2022-02-20 10:34 Normal [facility] Creatinine and Glomerular fi ltration rate.predicted panel (S/P/Bld)Ordered By: Frantz Weinstein on 02-15-2022 Creatinine [Mass/Vol] 3.29 mg/dL 0.64-1.27 [facility] Estimated glomerular filtrat ion rate (GFR) non- AmericanOrdered By: Frantz Weinstein on 02-15-2022 GFR/1.73 sq M.predicted among non-blacks MDRD (S/P/Bld) [Vol rate/Area] 18 mL/Min [facility] Glucose Glucometer (BldC) [M ass/Vol]Ordered By: Mere Nelson on 02-15-2022 Glucose [Mass/Vol] 324 mg/dL [facility] Comment on above: Random Glucose Refer ence Range is dependent on time and content of last meal. Glucose of more than 200 mg/dL in a nonstressed, ambulatory subject supports the diagnosis of Diabetes Mellitus. No Panel InformationOrdered By: Frantz Weinstein on 02-15-2022 Estimated GFR () 22 mL/Min [facility] Comment on above: GFR estimated refere nce range: According to KDOQI guidelines, <60 ml/min/1.73m2 is sufficient to diagnose a patient with chronic kidney disease. Pharmacy Creatinine Clearance (Chem 19.33 [facility] Serum or plasma calcium rachel urement (mass/volume)Ordered By: Frantz Weinstein on 02-15-2022 Calcium [Mass/Vol] 8.8 mg/dL 8.2-10.2 [facility] Serum or plasma chloride maico surement (moles/volume)Ordered By: Frantz Weinstein on 02-15-2022 Chloride [Moles/Vol] 105 mmol/L 95-114 [facility] Serum or plasma glucose rachel urement (mass/volume)Ordered By: Frantz Weinstein on 02-15-2022 Glucose [Mass/Vol] 198 mg/dL 70-100 [facility] Comment on above: ADA recommended refe rence range Random Glucose Reference Range is dependent on time and content of last meal. Glucose of more than 200 mg/dL in a nonstressed, ambulatory subject supports the diagnosis of Diabetes Mellitus. ADA recommended refe rence rangeRandom Glucose Reference Range is dependent on time and content of last meal. Glucose of more than 200 mg/dL in a nonstressed, ambulatory subject supports the diagnosis of Diabetes Mellitus. Serum or plasma potassium me asurement (moles/volume)Ordered By: Frantz Weinstein on 02-15-2022 Potassium [Moles/Vol] 3.7 mmol/L 3.5-5.1 [facility] Serum or plasma sodium measu rement (moles/volume)Ordered By: Frantz Weinstein on 02-15-2022 Sodium [Moles/Vol] 138 mmol/L 136-146 [facility] Serum or plasma total carbon dioxide measurement (moles/volume)Ordered By: Frantz Weinstein on 02-15-2022 CO2 [Moles/Vol] 21.4 mmol/L 22.0-30.0 [facility] Serum or plasma urea nitroge n measurement (mass/volume)Ordered By: Frantz Weinstein on 02-15-2022 Urea nitrogen [Mass/Vol] 62 mg/dL 9-23 [facility] Basophils Auto (Bld) [#/Vol] Ordered By: Frantz Weinstein on 02-14-2022 Basophils (Bld) [#/Vol] 0.0 10*3/uL 0.0-0.2 [facility] Basophils/100 WBC Auto (Bld) Ordered By: Frantz Weinstein on 02-14-2022 Basophils/100 WBC (Bld) 0.2 % . [facility] Blood hemoglobin measurement (mass/volume)Ordered By: Frantz Weinstein on 02-14-2022 Hemoglobin (Bld) [Mass/Vol] 9.3 g/dL 13.0-17.0 [facility] Blood leukocytes automated c ount (number/volume)Ordered By: Frantz Weinstein on 02-14-2022 WBC (Bld) [#/Vol] 9.1 10*3/uL 4.5-11.0 [facility] Eosinophils Auto (Bld) [#/Vo l]Ordered By: Frantz Weinstein on 02-14-2022 Eosinophils (Bld) [#/Vol] 0.0 10*3/uL 0.0-0.45 [facility] Eosinophils/100 WBC Auto (Bl d)Ordered By: Frantz Weinstein on 02-14-2022 Eosinophils/100 WBC (Bld) 0.0 % . [facility] Erythrocyte distribution wid th Auto (RBC) [Ratio]Ordered By: Frantz Weinstein on 02-14-2022 Erythrocyte distribution width (RBC) [Ratio] 13.7 % 12.0-14.8 [facility] Hematocrit Auto (Bld) [Volum e fraction]Ordered By: Frantz Weinstein on 02-14-2022 Hematocrit (Bld) [Volume fraction] 27.6 % 38.8-50.0 [facility] - Hematology and Cell countsOrdered By: Frantz Weinstein on 02-14-2022 Nucleated RBC/100 WBC (Bld) [Ratio] 0.0 % 0-0.5 [facility] Lymphocytes Auto (Bld) [#/Vo l]Ordered By: Frantz Weinstein on 02-14-2022 Lymphocytes (Bld) [#/Vol] 0.3 10*3/uL 1.00-4.8 [facility] Lymphocytes/100 WBC Auto (Bl d)Ordered By: Frantz Weinstein on 02-14-2022 Lymphocytes/100 WBC (Bld) 3.4 % . [facility] MCH Auto (RBC) [Entitic mass ]Ordered By: Frantz Weinstein on 02-14-2022 MCH (RBC) [Entitic mass] 33.0 pg 27.5-35.2 [facility] MCHC Auto (RBC) [Mass/Vol]Or dered By: Frantz Weinstein on 02-14-2022 MCHC (RBC) [Mass/Vol] 33.7 g/dL 32.5-35.6 [facility] MCV Auto (RBC) [Entitic vol] Ordered By: Frantz Weinstein on 02-14-2022 MCV (RBC) [Entitic vol] 98.0 fL 83.5-101 [facility] Monocytes Auto (Bld) [#/Vol] Ordered By: Frantz Weinstein on 02-14-2022 Monocytes (Bld) [#/Vol] 0.3 10*3/uL 0.0-0.8 [facility] Monocytes/100 WBC Auto (Bld) Ordered By: Frantz Weinstein on 02-14-2022 Monocytes/100 WBC (Bld) 3.2 % . [facility] Neutrophils Auto (Bld) [#/Vo l]Ordered By: Frantz Weinstein on 02-14-2022 Neutrophils (Bld) [#/Vol] 8.5 10*3/uL 1.8-7.7 [facility] Neutrophils/100 WBC Auto (Bl d)Ordered By: Frantz Weinstein on 02-14-2022 Neutrophils/100 WBC (Bld) 93.2 % . [facility] No Panel InformationOrdered By: Mere Nelson on 02-14-2022 Bedside Glucose Comment Glu2: cleaned meter [facility] Platelet mean volume Auto (B ld) [Entitic vol]Ordered By: Frantz Weinstein on 02-14-2022 Platelet mean volume (Bld) [Entitic vol] 9.9 fL 6.6-10.1 [facility] Platelets Auto (Bld) [#/Vol] Ordered By: Frantz Weinstein on 02-14-2022 Platelets (Bld) [#/Vol] 163 10*3/uL 150-450 [facility] RBC Auto (Bld) [#/Vol]Ordere d By: Frantz Weinstein on 02-14-2022 RBC (Bld) [#/Vol] 2.82 10*6/uL 3.90-5.60 [facility] Activated partial thrombopla stin time (aPTT) in platelet poor plasma by coagulation aOrdered By: Frantz Weinstein on 02-13-2022 aPTT Coag (PPP) [Time] 59.2 s 25.1-36.5 [facility] - CoagulationOrde red By: Emilia Pro on 02-13-2022 PT Coag (PPP) [Time] 13.5 s 9.0-12.9 [facility] Platelet poor plasma interna tional normalized ratio (INR) by coagulation assay (relatOrdered By: Emilia Pro on 02-13-2022 INR Coag (PPP) [Relative time] 1.2 {INR} [facility] Comment on above: INR Therapeutic Rang e A) Pre- and Peroperative OAT started two weeks before surgery. NOT HIP SURGERY: 1.5 - 2.5 HIP SURGERY: 2 - 3 B) Primary and secondary prevention of venous THROMBOSIS: 2 - 3 C) Active venous thrombosis, pulmonary embolism and prevention of recurrent venous thrombosis: 2 - 3 D) Prevention of arterial thromboembolism including patients with mechanical heart valves: 3 - 4.5 INR Therapeutic Rang e A) Pre- and Peroperative OAT started two weeks before surgery. NOT HIP SURGERY: 1.5 - 2.5 HIP SURGERY: 2 - 3B) Primary and secondary prevention of venous THROMBOSIS: 2 - 3C) Active venous thrombosis, pulmonary embolismand prevention of recurrent venous thrombosis: 2 - 3D) Prevention of arterial thromboembolismincluding patients with mechanical heart valves: 3 - 4.5 Laboratory - Chemistry and C hemistry - challengeOrdered By: Frantz Weinstein on 02-11-2022 Magnesium [Mass/Vol] 2.1 mg/dL 1.6-2.6 [facility] Maximum clot firmness [Lengt h] in Blood by ThromboelastographyOrdered By: Emilia Pro on 08-01-2022 Maximum clot firmness TEG (Bld) [Length] See comment [facility] Comment on above: See report. Scanned copy available in EMR. Phosphate [Mass/volume] in S jorge a or PlasmaOrdered By: Frantz Weinstein on 02-11-2022 Phosphate [Mass/Vol] 4.3 mg/dL 2.5-4.6 [facility] Troponin I.cardiac [Mass/vol ume] in Serum or Plasma by High sensitivity methodOrdered By: Frantz Weinstein on 02-11-2022 Troponin I.cardiac High sensitivity method [Mass/Vol] 1324 pg/mL 0-20 [facility] Comment on above: Results called at 0807 on 02/11/22 Results calledat 080 7 on 02/11/22 Albumin [Mass/volume] in Ser um or PlasmaOrdered By: Andrea Gomez on 02-10-2022 Albumin [Mass/Vol] 3.5 g/dL 3.2-5.5 [facility] Bilirubin Auto test strip Ql (U)Ordered By: Jonathon Ring on 02-10-2022 Bilirubin Ql (U) Negative Negative [facility] COVID CepheidOrdered By: Richard Gomez on 02-10-2022 SARS-CoV-2 (COVID-19) Ab IA Ql Negative Negative [facility] Comment on above: This is a duplicate CepFrequencyid Xpert Xpress CoV-2/Flu/RSV Plus RNA by RT-PCR result to be used for statistical tracking purpose only. SARS-CoV-2 (COVID-19) RNA TRAVIS+probe Ql (Unsp spec) [facility] COVID-19 SOFIAOrdered By: Lamine Gomez on 02-10-2022 SARS-CoV+SARS-CoV-2 (COVID-19) Ag IA.rapid Ql (Resp) Negative Negative [facility] Comment on above: This is a duplicate Adriana SARS Antigen (SKYLA) result to be used for statistical tracking purpose only. Creatinine [Mass/volume] in UrineOrdered By: Jonathon Ring on 02-10-2022 Creatinine (U) [Mass/Vol] 135.1 mg/dL [facility] Comment on above: No reference range e stablished Globulin Calc (S) [Mass/Vol] Ordered By: Andrea Gomez on 02-10-2022 Globulin (S) [Mass/Vol] 2.3 g/dL [facility] Glucose mean value [Mass/vol ume] in Blood Estimated from glycated hemoglobinOrdered By: Frantz Weinstein on 02-10-2022 Average glucose Estimated from glycated hemoglobin (Bld) [Mass/Vol] 111 mg/dL [facility] Hemoglobin A1c percentageOrd ered By: Frantz Weinstein on 02-10-2022 HbA1c (Bld) [Mass fraction] 5.5 % 4.3-5.6 [facility] Comment on above: Increased risk for d iabetes: 5.7 - 6.4 diabetes: >6.4 glycemic control for adults with diabetes: <7.0 Increased risk for d iabetes: 5.7 - 6.4diabetes: >6.4glycemic control for adults with diabetes: <7.0 Ketones Auto test strip (U) [Mass/Vol]Ordered By: Jonathon Ring on 02-10-2022 Ketones (U) [Mass/Vol] Negative Negative [facility] - Chemistry and C hemistry - challengeOrdered By: Andrea Gomez on 02-10-2022 Natriuretic peptide B (Bld) [Mass/Vol] 494.0 pg/mL 5-100 [facility] Protein Auto test strip (U) [Mass/Vol]Ordered By: Jonathon Ring on 02-10-2022 Protein (U) [Mass/Vol] Negative Negative [facility] Protein [Mass/volume] in Ser um or PlasmaOrdered By: Andrea Gomez on 02-10-2022 Protein [Mass/Vol] 5.8 g/dL 6.1-7.9 [facility] Protein [Mass/volume] in Uri neOrdered By: Jonathon Ring on 02-10-2022 Protein (U) [Mass/Vol] 15 mg/dL 0-9 [facility] Serum or plasma alanine llanes otransferase measurement without P-5'-P (enzymatic activiOrdered By: Andrea Gomez on 02-10-2022 ALT No additional P-5'-P [Catalytic activity/Vol] 12 U/L 10-60 [facility] Serum or plasma albumin/glob ulin mass ratioOrdered By: Andrea Gomez on 02-10-2022 Albumin/Globulin [Mass ratio] 1.5 {ratio} [facility] Serum or plasma alkaline sherine sphatase measurement (enzymatic activity/volume)Ordered By: Andrea Gomez on 02-10-2022 ALP [Catalytic activity/Vol] 64 U/L 32-92 [facility] Serum or plasma aspartate am inotransferase measurement (enzymatic activity/volume)Ordered By: Andrea Gomez on 02-10-2022 AST [Catalytic activity/Vol] 16 U/L 10-42 [facility] Serum or plasma thyroxine (T 4) measurement (mass/volume)Ordered By: Frantz Weinstein on 02-10-2022 T4 [Mass/Vol] 7.98 ug/dL 5.39-11.82 [facility] Serum or plasma total biliru bin measurement (mass/volume)Ordered By: Andrea Gomez on 02-10-2022 Bilirubin [Mass/Vol] 1.0 mg/dL 0.3-1.2 [facility] TSH DL <= 0.005 mIU/L QnOrde red By: Frantz Weinstein on 02-10-2022 TSH Qn 3.97 m[IU]/L 0.45-5.33 [facility] Thyroxine (T4) free [Mass/vo lume] in Serum or PlasmaOrdered By: Frantz Weinstein on 02-10-2022 Free T4 [Mass/Vol] 1.23 ng/dL 0.61-1.12 [facility] Urine appearanceOrdered By: Jonathon Ring on 02-10-2022 Appearance (U) Clear Clear [facility] Urine colorOrdered By: Jonathon Ring on 02-10-2022 Color (U) Yellow Yellow [facility] Urine glucose measurement by automated test strip (mass/volume)Ordered By: Jonathon Ring on 02-10-2022 Glucose Auto test strip (U) [Mass/Vol] Normal mg/dL Normal [facility] Urine hemoglobin detection b y automated test stripOrdered By: Jonathon Ring on 02-10-2022 Hemoglobin Auto test strip Ql (U) Negative Negative [facility] Urine leukocyte esterase det ection by automated test stripOrdered By: Jonathon Ring on 02-10-2022 Leukocyte esterase Auto test strip Ql (U) Negative Negative [facility] Urine nitrite detection by a utomated test stripOrdered By: Jonathon Ring on 02-10-2022 Nitrite Auto test strip Ql (U) Negative Negative [facility] Urobilinogen Auto test strip (U) [Mass/Vol]Ordered By: Jonathon Ring on 02-10-2022 Urobilinogen (U) [Mass/Vol] Normal mg/dL Normal [facility] pH Auto test strip (U)Ordere d By: Jonathon Ring on 02-10-2022 pH (U) 1.015 [pH] 1.001-1.030 [facility] pH (U) 6.0 [pH] 5.0-9.0 [facility] Office Visit (Cardiology)on 01-15-2022 Follow-up visit Diagnoses/Problems Assessed 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) Hyperlipidemia (272.4) (E78.5) History of PTCA (V45.82) (Z98.61) DM (diabetes mellitus) (250.00) (E11.9) Cardiac pacemaker in situ (V45.01) (Z95.0) CAD (coronary artery disease) (414.00) (I25.10) Benign essential hypertension (401.1) (I10) Arrhythmia, ventricular (427.9) (I49.9) PVD (peripheral vascular disease) (443.9) (I73.9) Overweight with body mass index (BMI) of 27 to 27.9 in adult (278.02,V85.23) (E66.3,Z68.27) Renal insufficiency (593.9) (N28.9) Carotid stenosis (433.10) (I65.29) Orders Benign essential hypertension Start: amLODIPine Besylate 10 MG Oral Tablet; TAKE 1 TABLET DAILY Benign essential hypertension, CAD (coronary artery disease), Renal insufficiency Basic Metabolic Panel; Status:Active - Retrospective Authorization; Requested for:[id number]; Nephrology Referral Evaluation and Treatment Evaluate AND Treat Status: Hold For - Scheduling,Retrospective Authorization Requested for: [id number] CAD (coronary artery disease) Renew: Amiodarone HCl - 200 MG Oral Tablet; Take 1 tablet daily Renew: Aspirin EC 81 MG Oral Tablet Delayed Release; TAKE 1 TABLET DAILY Unlinked Stop: amLODIPine Besylate 5 MG Oral Tablet Stop: Lisinopril 20 MG Oral Tablet Patient Instructions By signing my name below, I, Wendi Deal LPN, Scribe, attest that this documentation has been prepared under the direction and in the presence of Dr. Tawanda Pro DO. All medical record entries made by the Rene were at my direction and personally dictated by me. I have reviewed the chart and agree that the record accurately reflects my personal performance of the history, physical exam, discussion and plan. Please bring all medicines, vitamins, and herbal supplements with you when you come to the office. Prescriptions will not be filled unless you are compliant with your follow up appointments or have a follow up appointment scheduled as per instruction of your physician. Refills should be requested at the time of your visit. Keep follow-up appt as scheduled Nurse Practitioner follow-up in 3 months. Chief Complaint Apolinar NORMAN is being seen for a cardiovascular evaluation. Apolinar NORMAN is being seen for DISCUSS SYMPTOMS AND CANCELING CATH. RENAL SUFFICIENCY. 81-year-old gentleman who returns at the request of Dr. Murdock to further interventional assessment regarding known coronary disease, restenotic vein graft and a denovo right coronary lesions that were discovered on heart catheterization this past Fall. We did not intervene at the time due to chronic renal insufficiency with a serum creatinine of 2.57. The patient followed up with Dr. Murdock as well as with nurse practitioner with progressive lower extremity claudication symptomatology. Patient has no anginal complaints at this time he does have ventricular arrhythmias that are noted and has an AICD and remains on amiodarone Patient has a history of previous CABG, stenting of a vein graft. In preparation for possible coronary intervention he underwent repeat laboratory assessment now revealing worsening renal function with serum creatinine of 2.72. Patient had CO2 lower extremity angiography with Dr. 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 Patient is a follow-up with Dr. Cisneros next week and I suspect we will likely proceed with percutaneous lower extremity revascularization. As the patient has no angina at this time, and overall worsening renal insufficiency I am very hesitant to proceed with coronary or vein graft revascularization at least at this time. In the interim, will discontinue lisinopril, increase his amlodipine to 10 mg with follow-up renal profile and nurse practitioner office visit, and then follow-up with Dr. Murdock as previously scheduled. We will be available for coronary intervention if patient has progressive anginal complaints, or progressive arrhythmias; however at the risk of possibly worsening renal insufficiency if we proceed with angiography. All the above was discussed with him and his daughter. Surgical History Problems History of Angioplasty History of Cardiac catheterization with stent placement History of Carotid artery catheterization History of Complete colonoscopy History of Coronary artery bypass graft History of Pacemaker insertion History of Percutaneous transluminal coronary angioplasty femoral artery Past Medical History Problems History of class II angina pectoris (V12.59) (Z86.79) Resolved Date: 05 Nov 2021 Current Meds Medication NameInstruction Albuterol Sulfate HFA 108 (90 Base) MCG/ACT Inhalation Aerosol SolutionINHALE 2 PUFFS EVERY 4 HOURS NEEDED Amiodarone HCl - 200 MG Oral TabletTake 1 tablet daily amLODIPine Besylate 5 MG Oral TabletTAKE 1 TABLET DAILY. Aspirin EC 81 MG (more content not included)... Normal [employer] Tobacco Screening.on 022 Adult depression screening assessment No [facility] [employer] DO Work Phone: Fall risk assessment a) No falls within the last year [facility] [employer] Interactive 250 DO Work Phone: Tobacco use status [facility] b) No M [facility] [employer] Interactive 250 DO Work Phone: Activated partial thrombopla stin time (aPTT) in platelet poor plasma by coagulation aOrdered By: Emilia Pro on 01-10-2022 aPTT Coag (PPP) [Time] 30.3 s 25.1-36.5 [facility] Basophils Auto (Bld) [#/Vol] Ordered By: Emilia Pro on 01-10-2022 Basophils (Bld) [#/Vol] 0.0 10*3/uL 0.0-0.2 [facility] Basophils/100 WBC Auto (Bld) Ordered By: Emilia Pro on 01-10-2022 Basophils/100 WBC (Bld) 0.5 % . [facility] Blood hemoglobin measurement (mass/volume)Ordered By: Emilia Pro on 01-10-2022 Hemoglobin (Bld) [Mass/Vol] 11.7 g/dL 13.0-17.0 [facility] Blood leukocytes automated c ount (number/volume)Ordered By: Emilia Pro on 01-10-2022 WBC (Bld) [#/Vol] 5.6 10*3/uL 4.5-11.0 [facility] COVID-19 SOFIAOrdered By: Emilia Pro on 01-10-2022 SARS-CoV+SARS-CoV-2 (COVID-19) Ag IA.rapid Ql (Resp) Negative Negative [facility] Comment on above: This is a duplicate Adriana SARS Antigen (SKYLA) result to be used for statistical tracking purpose only. Cholesterol [Mass/volume] in Serum or PlasmaOrdered By: Emilia Pro on 01-10-2022 Cholesterol [Mass/Vol] 175 mg/dL 140-200 [facility] Comment on above: Chol less than 200 m g/dl low risk Chol 201-239 mg/dl borderline risk Chol 240 mg/dl and greater high risk Cholesterol in LDL Calc [Mas s/Vol]Ordered By: Emilia Pro on 01-10-2022 Cholesterol in LDL [Mass/Vol] 111 mg/dL 0-100 [facility] Comment on above: LDL ATP III CLASSIFI CATION LDL less than 100 mg/dL Optimal LDL 100-129 mg/dL Near or above optimal LDL 130-159 mg/dL Borderline high LDL 160-189 mg/dL High LDL greater than 189 mg/dL Very high Cholesterol in VLDL Calc [Ma ss/Vol]Ordered By: Emilia Pro on 01-10-2022 Cholesterol in VLDL [Mass/Vol] 30 mg/dL [facility] Creatinine and Glomerular fi ltration rate.predicted panel (S/P/Bld)Ordered By: Emilia Pro on 01-10-2022 Creatinine [Mass/Vol] 2.72 mg/dL 0.64-1.27 [facility] Eosinophils Auto (Bld) [#/Vo l]Ordered By: Emilia Pro on 01-10-2022 Eosinophils (Bld) [#/Vol] 0.1 10*3/uL 0.0-0.45 [facility] Eosinophils/100 WBC Auto (Bl d)Ordered By: Emilia Pro on 01-10-2022 Eosinophils/100 WBC (Bld) 2.3 % . [facility] Erythrocyte distribution wid th Auto (RBC) [Ratio]Ordered By: Emilia Pro on 01-10-2022 Erythrocyte distribution width (RBC) [Ratio] 14.1 % 12.0-14.8 [facility] Estimated glomerular filtrat ion rate (GFR) non- AmericanOrdered By: Emilia Pro on 01-10-2022 GFR/1.73 sq M.predicted among non-blacks MDRD (S/P/Bld) [Vol rate/Area] 23 mL/Min [facility] Hematocrit Auto (Bld) [Volum e fraction]Ordered By: Emilia Pro on 01-10-2022 Hematocrit (Bld) [Volume fraction] 36.1 % 38.8-50.0 [facility] Laboratory - Chemistry and C hemistry - challengeon 01-10-2022 Cholesterol [Mass/Vol] 175\S\175 Normal 140-200 [facility] zuleyma 250 DO Work Phone: Comment on above: Chol less than 200 m g/dl low risk Chol 201-239 mg/dl borderline risk Chol 240 mg/dl and greater high risk Cholesterol in LDL [Mass/Vol] 111\S\111 above high threshold 0-100 [facility] zuleyma 250 DO Work Phone: Comment on above: LDL ATP III CLASSIFI CATION LDL less than 100 mg/dL Optimal LDL 100-129 mg/dL Near or above optimal LDL 130-159 mg/dL Borderline high LDL 160-189 mg/dL High LDL greater than 189 mg/dL Very high Laboratory - CoagulationOrde red By: Emilia Pro on 01-10-2022 PT Coag (PPP) [Time] 10.6 s 9.0-12.9 [facility] - Hematology and Cell countsOrdered By: Emilia Pro on 01-10-2022 Nucleated RBC/100 WBC (Bld) [Ratio] 0.1 % 0-0.5 [facility] - Microbiology an d Antimicrobial susceptibilityon 01-10-2022 SARS-CoV-2 (COVID-19) RNA TRAVIS+probe Ql (Unsp spec) [facility] zuleyma 250 DO Work Phone: Lymphocytes Auto (Bld) [#/Vo l]Ordered By: Emilia Pro on 01-10-2022 Lymphocytes (Bld) [#/Vol] 1.1 10*3/uL 1.00-4.8 [facility] Lymphocytes/100 WBC Auto (Bl d)Ordered By: Emilia Pro on 01-10-2022 Lymphocytes/100 WBC (Bld) 19.2 % . [facility] MCH Auto (RBC) [Entitic mass ]Ordered By: Emilia Pro on 01-10-2022 MCH (RBC) [Entitic mass] 31.7 pg 27.5-35.2 [facility] MCHC Auto (RBC) [Mass/Vol]Or dered By: Emilia Pro on 01-10-2022 MCHC (RBC) [Mass/Vol] 32.5 g/dL 32.5-35.6 [facility] MCV Auto (RBC) [Entitic vol] Ordered By: Emilia Pro on 01-10-2022 MCV (RBC) [Entitic vol] 97.7 fL 83.5-101 [facility] Monocytes Auto (Bld) [#/Vol] Ordered By: Emilia Pro on 01-10-2022 Monocytes (Bld) [#/Vol] 0.5 10*3/uL 0.0-0.8 [facility] Monocytes/100 WBC Auto (Bld) Ordered By: Emilia Pro on 01-10-2022 Monocytes/100 WBC (Bld) 8.6 % . [facility] Neutrophils Auto (Bld) [#/Vo l]Ordered By: Emilia Pro on 01-10-2022 Neutrophils (Bld) [#/Vol] 3.9 10*3/uL 1.8-7.7 [facility] Neutrophils/100 WBC Auto (Bl d)Ordered By: Emilia Pro on 01-10-2022 Neutrophils/100 WBC (Bld) 69.4 % . [facility] No Panel InformationOrdered By: Emilia Pro on 01-10-2022 Estimated GFR () 27 mL/Min [facility] Comment on above: GFR estimated refere nce range: According to KDOQI guidelines, <60 ml/min/1.73m2 is sufficient to diagnose a patient with chronic kidney disease. Pharmacy Creatinine Clearance (Chem N/A [facility] SARS Antigen (LFIA) [facility] SARS Antigen (LFIA) [facility] No Panel Informationon 01-10 Negative Normal Negative [facility] z[facility]yma 250 DO Work Phone: Comment on above: This is a duplicate Adriana SARS Antigen (SKYLA) result to be used for statistical tracking purpose only.PERFORMED BY:[address] [address] [address] [place], [place] [id number] MEDICAL DIRECTORMO PALOMO M.D. 5.3\S\5.3 Normal <5.0 [facility] zuleyma 250 DO Work Phone: Comment on above: PERFORMED BY:[address] [address] [address] [place], [place] [phone] MEDICAL DIRECTORMO PALOMO M.D. 30\S\30 above high threshold 9-23 [facility] 250 DO Work Phone: 153\S\153 above high threshold 35-149 [facility] 250 DO Work Phone: Comment on above: TRIG ATP III CLASSIF ICATION TRIG less than 150 mg/dL Normal TRIG 150-199 mg/dL Borderline high TRIG 200-500 mg/dL High TRIG greater than 500 mg/dL Very high Standard traceable to the Center for Disease Conrtrol and Prevention (CDC) test method. 33\S\33 Normal 29-71 [facility] zuleyma 250 DO Work Phone: Comment on above: HDL CHOL ATP-III CLA SSIFICATION Cardiovascular Risk HDL > or equal to 60 mg/dL LOW HDL < 40 mg/dL HIGH 27\S\27 Normal -[facility]-Bonnie soly 250 DO Work Phone: Comment on above: GFR estimated refere nce range: According to KDOQI guidelines, <60 ml/min/1.73m2 is sufficient to diagnose a patient with chronic kidney disease. 23\S\23 Normal [facility] zuleyma 250 DO Work Phone: [phone] 2.72\S\2.72 above high threshold 0.64-1.27 [facility]-Bonnie soly 250 DO Work Phone: 22.8\S\22.8 Normal 22.0-30.0 [facility]-Bon[facility] amor 250 DO Work Phone: 105\S\105 Normal 95-114 [facility]Bon[facility] amor 250 DO Work Phone: 4.6\S\4.6 Normal 3.5-5.1 [facility] amor 250 DO Work Phone: 140\S\140 Normal 136-146 [facility]Bon[facility] soly 250 DO Work Phone: 0.0\S\0.0 Normal 0.0-0.2 [facility] HeartPatricia amor 250 DO Work Phone: Comment on above: PERFORMED BY:[facility] [place] [phone] MEDICAL DIRECTORMO PALOMO M.D. 0.1\S\0.1 Normal 0-0.5 [facility]Bon[facility] soly 250 DO Work Phone: 0.5\S\0.5 Normal . [facility] zuleyma 250 DO Work Phone: 1.1\S\1.1 Normal 1.00-4.8 [facility] zuleyma 250 DO Work Phone: [phone] 3.9\S\3.9 Normal 1.8-7.7 [facility] zuleyma 250 DO Work Phone: [phone] 2.3\S\2.3 Normal . [facility] zuleyma 250 DO Work Phone: [phone] 8.6\S\8.6 Normal . [facility] zuleyma 250 DO Work Phone: [phone] 19.2\S\19.2 Normal . [facility] zuleyma 250 DO Work Phone: [phone] 69.4\S\69.4 Normal . [facility] zuleyma 250 DO Work Phone: [phone] 9.2\S\9.2 Normal 6.6-10.1 [facility] zuleyma 250 DO Work Phone: [phone] 190\S\190 Normal 150-450 [facility] zuleyma 250 DO Work Phone: [phone] 14.1\S\14.1 Normal 12.0-14.8 [facility] zuleyma 250 DO Work Phone: [phone] 32.5\S\32.5 Normal 32.5-35.6 [facility] zuleyma 250 DO Work Phone: [phone] 31.7\S\31.7 Normal 27.5-35.2 [facility] zuleyma 250 DO Work Phone: [phone] 97.7\S\97.7 Normal 83.5-101 [facility] zuleyma 250 DO Work Phone: [phone] 36.1\S\36.1 below low threshold 38.8-50.0 [facility] zuleyma 250 DO Work Phone: [phone] 11.7\S\11.7 below low threshold 13.0-17.0 [facility] zuleyma 250 DO Work Phone: 3.69\S\3.69 below low threshold 3.90-5.60 [facility] 250 DO Work Phone: 5.6\S\5.6 Normal 4.1-10.5 [facility] [employer]rapeuticsBonnie amor 250 DO Work Phone: 30.3\S\30.3 Normal 25.1-36.5 [facility] [employer]Bonnie amor 250 DO Work Phone: Comment on above: PERFORMED BY:[facility] [place], [place] [phone] MEDICAL DIRECTORMO PALOMO M.D. 0.9\S\0.9 Normal [facility] LEAD TherapeuticsBonnie Aguilera DO Work Phone: Comment on above: INR Therapeutic Rang e A) Pre- and Peroperative OAT started two weeks before surgery. NOT HIP SURGERY: 1.5 - 2.5 HIP SURGERY: 2 - 3 B) Primary and secondary prevention of venous THROMBOSIS: 2 - 3 C) Active venous thrombosis, pulmonary embolism and prevention of recurrent venous thrombosis: 2 - 3 D) Prevention of arterial thromboembolism including patients with mechanical heart valves: 3 - 4.5 10.6\S\10.6 Normal 9.0-12.9 [facility] amor [employer] DO Work Phone: Platelet mean volume Auto (B ld) [Entitic vol]Ordered By: Emilia Pro on 01-10-2022 Platelet mean volume (Bld) [Entitic vol] 9.2 fL 6.6-10.1 [facility] Platelet poor plasma interna tional normalized ratio (INR) by coagulation assay (relatOrdered By: Emilia Pro on 01-10-2022 INR Coag (PPP) [Relative time] 0.9 {INR} [facility] Comment on above: INR Therapeutic Rang e A) Pre- and Peroperative OAT started two weeks before surgery. NOT HIP SURGERY: 1.5 - 2.5 HIP SURGERY: 2 - 3 B) Primary and secondary prevention of venous THROMBOSIS: 2 - 3 C) Active venous thrombosis, pulmonary embolism and prevention of recurrent venous thrombosis: 2 - 3 D) Prevention of arterial thromboembolism including patients with mechanical heart valves: 3 - 4.5 Platelets Auto (Bld) [#/Vol] Ordered By: Emilia Pro on 01-10-2022 Platelets (Bld) [#/Vol] 190 10*3/uL 150-450 [facility] RBC Auto (Bld) [#/Vol]Ordere d By: Emilia Pro on 01-10-2022 RBC (Bld) [#/Vol] 3.69 10*6/uL 3.90-5.60 [facility] Serum or plasma chloride maico surement (moles/volume)Ordered By: Emilia Pro on 01-10-2022 Chloride [Moles/Vol] 105 mmol/L 95-114 [facility] Serum or plasma high density lipoprotein (HDL) cholesterol measurementOrdered By: Emilia Pro on 01-10-2022 Cholesterol in HDL [Mass/Vol] 33 mg/dL 29-71 [facility] Comment on above: HDL CHOL ATP-III CLA SSIFICATION Cardiovascular Risk HDL > or equal to 60 mg/dL LOW HDL < 40 mg/dL HIGH Serum or plasma potassium me asurement (moles/volume)Ordered By: Emilia Pro on 01-10-2022 Potassium [Moles/Vol] 4.6 mmol/L 3.5-5.1 [facility] Serum or plasma sodium measu rement (moles/volume)Ordered By: Emilia Pro on 01-10-2022 Sodium [Moles/Vol] 140 mmol/L 136-146 [facility] Serum or plasma total carbon dioxide measurement (moles/volume)Ordered By: Emilia Pro on 01-10-2022 CO2 [Moles/Vol] 22.8 mmol/L 22.0-30.0 [facility] Serum or plasma total choles terol/high density lipoprotein (HDL) cholesterol mass ratOrdered By: Emilia Pro on 01-10-2022 Cholesterol.total/Kely sterol in HDL [Mass ratio] 5.3 {ratio} <5.0 [facility] Serum or plasma urea nitroge n measurement (mass/volume)Ordered By: Emilia Pro on 01-10-2022 Urea nitrogen [Mass/Vol] 30 mg/dL 9- [facility] Triglyceride [Mass/volume] i n Serum or PlasmaOrdered By: Emilia rPo on 01-10-2022 Triglyceride [Mass/Vol] 153 mg/dL 35-149 [facility] Comment on above: TRIG ATP III CLASSIF ICATION TRIG less than 150 mg/dL Normal TRIG 150-199 mg/dL Borderline high TRIG 200-500 mg/dL High TRIG greater than 500 mg/dL Very high Standard traceable to the Center for Disease Conrtrol and Prevention (CDC) test method. Office Visit (Cardiology)on 12-31-2021 Follow-up visit Diagnoses/Problems Assessed CAD (coronary artery disease) (414.00) (I25.10) Cardiac pacemaker in situ (V45.01) (Z95.0) 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) Sinus bradycardia (427.89) (R00.1) DM (diabetes mellitus) (250.00) (E11.9) Benign essential hypertension (401.1) (I10) Hyperlipidemia (272.4) (E78.5) Overweight with body mass index (BMI) of 28 to 28.9 in adult (278.02,V85.24) (E66.3,Z68.28) Former smoker (V15.82) (Z87.891) History of PTCA (V45.82) (Z98.61) Arrhythmia, ventricular (427.9) (I49.9) Orders CAD (coronary artery disease) Start: Amiodarone HCl - 200 MG Oral Tablet; Take 1 tablet daily IO EKG Electrocardiogram- 12 Lead; Status:Complete; Done: 31Dec2021 Renew: Aspirin EC 81 MG Oral Tablet Delayed Release; TAKE 1 TABLET DAILY Hyperlipidemia Renew: Atorvastatin Calcium 80 MG Oral Tablet; TAKE 1 TABLET DAILY Overweight with body mass index (BMI) of 28 to 28.9 in adult Healthy Weight Tips; Status:Complete - Retrospective Authorization; Done: 31Dec2021 Some eating tips that can help you lose weight.; Status:Complete - Retrospective Authorization; Done: 31Dec2021 SocHx: Former smoker Tobacco Use Screening; Status:Complete; Done: 31Dec2021 Patient Instructions By signing my name below, INicol Rodrigo MCCRAY ,Johnibe, attest that this documentation has been prepared under the direction and in the presence of Dr. Tawanda Murdock MD. Please bring all medicines, vitamins, and herbal supplements with you when you come to the office. Prescriptions will not be filled unless you are compliant with your follow up appointments or have a follow up appointment scheduled as per instruction of your physician. Refills should be requested at the time of your visit. Follow up in [6 ] months Pacemaker follow up per routine Chief Complaint Apolinar NORMAN is being seen for a 1 month follow-up of. History of Present Illness Patient returns in follow-up of problems as noted. In the interim he underwent an echocardiogram because of frequent ventricular ectopy and concerns regarding deterioration in ejection fraction. Actually the ejection fraction is normal and there were no significant findings aside for some pulmonary hypertension. His pacemaker checks will be used to monitor for breakthrough arrhythmias in the future. Presently has no coronary disease symptomatology such as that that preceded his bypass surgery and/or PTCA and because of this we believe he is doing well. Likewise she has no symptoms referable to bradycardia arrhythmias since pacemaker implant. Overall from a cardiac standpoint he is doing well because of this we suggest continued therapy as is we will cut the amiodarone in half now but the ventricular arrhythmia appears to be controlled. The patient was educated regarding cardiac signs and symptoms watch for and encouraged to call if any angina CHF or arrhythmia symptoms arises. We did touch on the merits of diet exercise and weight loss as well. Current Meds Medication NameInstruction Albuterol Sulfate HFA 108 (90 Base) MCG/ACT Inhalation Aerosol SolutionINHALE 2 PUFFS EVERY 4 HOURS NEEDED Amiodarone HCl - 200 MG Oral TabletTAKE 1 TABLET TWICE DAILY. amLODIPine Besylate 5 MG Oral TabletTAKE 1 TABLET DAILY. Aspirin EC 81 MG Oral Tablet Delayed ReleaseTAKE 1 TABLET DAILY. Atorvastatin Calcium 80 MG Oral TabletTAKE 1 TABLET DAILY. Cilostazol 100 MG Oral TabletTAKE 1 TABLET TWICE DAILY. Clopidogrel Bisulfate 75 MG Oral TabletTAKE 1 TABLET DAILY. Dicyclomine HCl - 20 MG Oral TabletTAKE 1 TABLET 4 TIMES DAILY. glyBURIDE 1.25 MG Oral TabletTAKE 1 TABLET DAILY. Isosorbide Mononitrate ER 30 MG Oral Tablet Extended Release 24 HourTAKE 1 TABLET DAILY. Levothyroxine Sodium 100 MCG Oral TabletTAKE 1 TABLET DAILY. Lisinopril 20 MG Oral TabletTAKE 1 TABLET DAILY. Metoprolol Succinate ER 25 MG Oral Tablet Extended Release 24 HourTAKE 1 TABLET DAILY. Multi Vitamin Oral TabletTAKE 1 TABLET DAILY. Nitroglycerin 0.4 MG Sublingual Tablet SublingualDISSOLVE 1 TABLET UNDER THE TONGUE NEEDED FOR CHEST PAIN. Omeprazole 40 MG Oral Capsule Delayed ReleaseTAKE 1 CAPSULE Daily Vitamin C 1000 MG Oral TabletTAKE 1 TABLET DAILY. Allergies Medication levofloxacin Allergy; Rash; Recorded By: Юлия Luna; 05/14/2021 10:51:32 AM Penicillins Rash; Swelling; Updated By: Deysi Zhu; 05/04/2021 9:29:38 AM Social History Problems Alcohol use (V49.89) (Z72.89) ONE BEER DAILY Caffeine use (V49.89) (Z78.9) 3-4 CUPS OF COFFEE DAILY Former smoker (V15.82) (Z87.891) No illicit drug use Review of Systems Constitutional: not feeling tired. Eyes: no eyesight problems. ENT: no hearing loss and no nosebleeds. Cardiovascular: no intermittent leg claudication and as noted in HPI. Respiratory: no chronic cough and no shortness of breath. Gastrointestinal: no change in bowel habits and no blood in stools. Genitourinary: no urinary frequency and no hematuria. Skin: no skin ra (more content not included)... Normal [employer] Tobacco Screening.on 022 Fall risk assessment a) No falls within the last year [facility] TherapeuticsCo[facility] CenterAddonTV DO Work Phone: Tobacco use status [facility] b) No M [facility]rapeuticsCo[facility] CenterVenustech 250 DO Work Phone: Echocardiogramon 11-23-2021 Echocardiography [facility] [address] [place] [address], [address] [facility], [place] [address] TRANSTHORACIC ECHOCARDIOGRAM REPORT Patient Name: Apolinar Curran Physician: [id number] Cruzito Taylor MD Study Date: 11/23/2021 Referring Physician: Maya MURDOCK MRN/PID: [id number] PCP: Justo Cameron Accession/Order#: [id number] Department Location: [facility] Date of : 1940 Fellow: Gender: M Nurse: Admit Date: Senior Government Program Analyst: Ghazala Kirkpatrick RDCS, RVT Height: 180.34 cm CC Report to: Weight: 92.08 kg Study Type: Echocardiogram BSA: 2.12 m2 Blood Pressure: 166 /68 mmHg Diagnosis/ICD: I49.9-Cardiac arrhythmia, unspecified; I25.10-Atherosclerotic heart disease of chicken [place] coronary artery without angina pectoris Indication: Diabetes, HTN, Hyperlipidemia, CABG, PTCA, Former Smoker, Overweight Procedure/CPT: Echo Complete w Full [id number] Study Detail: The following Echo studies were performed: 2D, M-Mode, Doppler and color flow. PHYSICIAN INTERPRETATION: Left Ventricle: The left ventricular systolic function is normal, with an estimated ejection fraction of 55%. The left ventricular cavity size is normal. Spectral Doppler shows a normal pattern of left ventricular diastolic filling. Mild LVH MOderate ifro-basillar wall hypokinesis. Left Atrium: The left atrium is moderately dilated. Right Ventricle: The right ventricle is normal in size. There is normal right ventricular global systolic function. Right Atrium: The right atrium is normal in size. Aortic Valve: The aortic valve appears abnormal. There is trace to mild aortic valve regurgitation. The peak instantaneous gradient of the aortic valve is 9.7 mmHg. The mean gradient of the aortic valve is 5.0 mmHg. Mitral Valve: The mitral valve is mildly thickened. There is mild to moderate mitral valve regurgitation. Tricuspid Valve: The tricuspid valve is structurally normal. There is mild to moderate tricuspid regurgitation. The Doppler estimated RVSP is moderate to severely elevated at 58.1 mmHg. Pulmonic Valve: The pulmonic valve is structurally normal. There is mild to moderate pulmonic valve regurgitation. Pericardium: There is no pericardial effusion noted. Aorta: The aortic root is normal. When compared to prior study the severity of the mitral regurgitation, tricuspid regurgitation and pulmonary hypertension seem to have worsened. CONCLUSIONS: 1. The left ventricular systolic function is normal with a 55% estimated ejection fraction. 2. The left atrium is moderately dilated. 3. Mild to moderate mitral valve regurgitation. 4. Moderate to severely elevated right ventricular systolic pressure. 5. There is mild to moderate tricuspid regurgitation. 6. When compared to prior study the severity of the mitral regurgitation, tricuspid regurgitation and pulmonary hypertension seem to have worsened. QUANTITATIVE DATA SUMMARY: 2D MEASUREMENTS: Normal Ranges: Ao Root d: 3.60 cm (2.0-3.7cm) LAs: 5.00 cm (2.7-4.0cm) RVIDd: 2.80 cm (0.9-3.6cm) IVSd: 1.20 cm (0.6-1.1cm) LVPWd: 1.20 cm (0.6-1.1cm) LVIDd: 5.60 cm (3.9-5.9cm) LVIDs: 3.80 cm LV Mass Index: 132.2 g/m2 LV % FS 32.1 % LV SYSTOLIC FUNCTION BY 2D PLANIMETRY (MOD): Normal Ranges: EF-A4C View: 58.6 % (>55%) LV DIASTOLIC FUNCTION: Normal Ranges: MV Peak E: 0.99 m/s (0.7-1.2 m/s) MV Peak A: 0.80 m/s (0.42-0.7 m/s) E/A Ratio: 1.23 (1.0-2.2) MV lateral e' 0.11 m/s MV medial e' 0.08 m/s E/e' Ratio: 9.20 (<8.0) MITRAL VALVE: Normal Ranges: MV Vmax: 1.14 m/s (<1.3m/s) MV peak P.2 mmHg (<5mmHg) MV mean P.0 mmHg (<48mmHg) MITRAL INSUFFICIENCY: Normal Ranges: MR Vmax: 478.00 cm/s AORTIC VALVE: Normal Ranges: AoV Vmax: 1.56 m/s (<1.7m/s) AoV Peak P.7 mmHg (<20mmHg) AoV Mean P.0 mmHg (1.7-11.5mmHg) LVOT Max Briana: 0.74 m/s (<1.1m/s) AoV VTI: 41.20 cm (18-25cm) LVOT VTI: 17.10 cm LVOT Diameter: 2.30 cm (1.8-2.4cm) AoV Area, VTI: 1.72 cm2 (2.5-5.5cm2) AoV Area,Vmax: 1.97 cm2 (2.5-4.5cm2) AoV Dimensionless Index: 0.42 AORTIC INSUFFICIENCY: AI Vmax: 2.49 m/s AI Half-time: 486 msec AI Decel Rate: 150.00 cm/s2 TRICUSPID VALVE/RVSP: Normal Ranges: Peak TR Velocity: 3.71 m/s RV Syst Pressure: 58.1 mmHg (< 30mmHg) PULMONIC VALVE: Normal Ranges: PV Max Briana: 0.9 m/s (0.6-0.9m/s) PV Max P.6 mmHg PIEDV: 3.08 m/s PADP: 40.9 mmHg [id number] Cruzito Taylor MD Electronically signed on 11/23/2021 at 12:07:53 PM Final Normal [facility] Office Visit (Cardiology)on 11-05-2021 Follow-up visit Diagnoses/Problems Assessed CAD (coronary artery disease) (414.00) (I25.10) Benign essential hypertension (401.1) (I10) Cardiac pacemaker in situ (V45.01) (Z95.0) History of PTCA (V45.82) (Z98.61) Hyperlipidemia (272.4) (E78.5) 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) DM (diabetes mellitus) (250.00) (E11.9) ALICIA (acute kidney injury) (584.9) (N17.9) Former smoker (V15.82) (Z87.891) Overweight with body mass index (BMI) of 28 to 28.9 in adult (278.02,V85.24) (E66.3,Z68.28) Arrhythmia, ventricular (427.9) (I49.9) Orders Arrhythmia, ventricular Start: Amiodarone HCl - 200 MG Oral Tablet; TAKE 1 TABLET TWICE DAILY Arrhythmia, ventricular, CAD (coronary artery disease) Echocardiogram; Status:Hold For - Scheduling,Retrospective Authorization; Requested for:05Nov2021; Irregular heart beat IO EKG Electrocardiogram- 12 Lead; Status:Complete; Done: [id number] Overweight with body mass index (BMI) of 28 to 28.9 in adult Healthy Weight Tips; Status:Complete - Retrospective Authorization; Done: 05Nov2021 SocHx: Former smoker Tobacco Use Screening; Status:Complete; Done: [id number] Unlinked Stop: metFORMIN HCl - 500 MG Oral Tablet Patient Instructions By signing my name below, I, Wendi Deal LPN, Scribe, attest that this documentation has been prepared under the direction and in the presence of Dr. Tawanda Murdock MD. All medical record entries made by the Rene were at my direction and personally dictated by me. I have reviewed the chart and agree that the record accurately reflects my personal performance of the history, physical exam, discussion and plan. Please bring all medicines, vitamins, and herbal supplements with you when you come to the office. Prescriptions will not be filled unless you are compliant with your follow up appointments or have a follow up appointment scheduled as per instruction of your physician. Refills should be requested at the time of your visit. Fall prevention education given Follow up in 1 months Chief Complaint Apolinar NORMAN is being seen for a 9 month follow-up of. History of Present Illness Returns in follow-up of problems as noted. In the interim he states he has been feeling well and he denies angina CHF or arrhythmia symptomatology. Family members, though, told me that he had an episode of fugue state where he could not speak for about 4 hours. He had no other focal findings. The patient states he remembers the episode he presumed was hypoglycemia and thereafter he stopped taking his metformin he states he has had no recurring episodes. I also note he is 81 years old and lists Ambien as a drug that he takes and I advised him he should stop taking that as well. He states he was taking Ambien up until several months ago and there may be some sort of chronologic and or temporal association a relationship between treatment of his hyperglycemia and or sleep disorder with Ambien that could have caused the aforementioned neurologic syndrome. Auscultation today demonstrates irregular rhythm and EKG demonstrates an atrial paced rhythm but frequent PVCs couplets and triplets. Because of this I am concerned. We reviewed his chart and notes that he did undergo coronary angiogram last year without intervention but no ventriculography was performed. He has a pacemaker, not defibrillator, and I am concerned that this arrhythmia may suggest the need for intensify therapy and/or a change in device therapy. For the moment his coronary disease otherwise appears asymptomatic and I cannot elicit from him any of the anginal symptomatology that preceded his previous coronary bypass and/or PTCA. Treatment and control of his blood pressure lipids is adequate and appropriate because of this we make no change. I do, though, recommend amiodarone to suppress the arrhythmia immediately. Additionally we will perform an echocardiogram and thereafter reconvene to determine what else needs to be done. He was encouraged to seek care and/or call 911 if he were to have syncope near syncope or anginal discomfort. Surgical History Problems History of Angioplasty History of Cardiac catheterization with stent placement History of Carotid artery catheterization History of Complete colonoscopy History of Coronary artery bypass graft History of Pacemaker insertion History of Percutaneous transluminal coronary angioplasty femoral artery Past Medical History Problems History of class II angina pectoris (V12.59) (Z86.79) Resolved Date: 05 Nov 2021 Current Meds Medication NameInstruction Albuterol Sulfate HFA 108 (90 Base) MCG/ACT Inhalation Aerosol SolutionINHALE 2 PUFFS EVERY 4 HOURS NEEDED amLODIPine Besylate 5 MG Oral TabletTAKE 1 TABLET DAILY. Aspirin EC 81 MG Oral Tablet Delayed ReleaseTAKE 1 TABLET DAILY. Atorvastatin Calcium 80 MG Oral TabletTAKE 1 TABLET DAILY. Cilostazol 100 MG Oral TabletTAKE 1 TABLET TWICE DAILY. Clopidogrel Bisulfate 75 MG Oral TabletTAKE 1 TABLE (more content not included)... Normal [facility] Complete Blood Counton 06-20 Erythrocyte distribution width (RBC) [Ratio] 12.0 % Normal 11.0-15.0 [facility] Specialist Comment on above: Performed By: #### C BC, CMP, LIPD, TSH reflex FT4 #### [facility] [address], [place] [id number] Hematocrit (Bld) [Volume fraction] 38.8 % Normal 38.5-50.0 [facility] Specialist Comment on above: Performed By: #### C BC, CMP, LIPD, TSH reflex FT4 #### [facility] [address], [place] [id number] Hemoglobin (Bld) [Mass/Vol] 12.3 g/dL Low 13.0-17.1 [facility] Specialist Comment on above: Performed By: #### C BC, CMP, LIPD, TSH reflex FT4 #### [facility] [address], [place] [id number] MCH (RBC) [Entitic mass] 31.6 pg Normal 27.0-33.0 [facility] Specialist Comment on above: Performed By: #### C BC, CMP, LIPD, TSH reflex FT4 #### [facility] [address], [place] [id number] MCHC (RBC) [Mass/Vol] 31.7 g/dL Low 32.0-36.0 [facility] Comment on above: Performed By: #### C BC, CMP, LIPD, TSH reflex FT4 #### [facility] [address], [place] [id number] MCV (RBC) [Entitic vol] 100 fL Normal 80-100 N [facility] Specialist Comment on above: Performed By: #### C BC, CMP, LIPD, TSH reflex FT4 #### [facility] [address], [place] [id number] Platelet mean volume (Bld) [Entitic vol] 10.90 fL Normal 7.50-12.50 [facility] Specialist Comment on above: Performed By: #### C BC, CMP, LIPD, TSH reflex FT4 #### [facility] [address], [place] [id number] Platelets (Bld) [#/Vol] 179 10*3/uL Normal 140-400 [facility] Specialist Comment on above: Performed By: #### C BC, CMP, LIPD, TSH reflex FT4 #### [facility] [address], [place] [id number] RBC (Bld) [#/Vol] 3.89 10*6/uL Low 4.20-5.80 [facility] Comment on above: Performed By: #### C BC, CMP, LIPD, TSH reflex FT4 #### [facility] [address], [place] [id number] RDW-SD 44.0 fL Normal 37.0-50.0 [facility] Specialist Comment on above: Performed By: #### C BC, CMP, LIPD, TSH reflex FT4 #### [facility] [address], [place] [id number] WBC (Bld) [#/Vol] 7.1 10*3/uL Normal 3.8-11.0 [facility] Specialist Comment on above: Performed By: #### C BC, CMP, LIPD, TSH reflex FT4 #### [facility] [address], [place] [id number] Comprehensive Metabolic Pane joss 06-20-2021 Albumin [Mass/Vol] 4.5 g/dL Normal 3.6-5.1 [facility] Comment on above: Performed By: #### C BC, CMP, LIPD, TSH reflex FT4 #### [facility] [address], [place] [id number] Albumin/Globulin [Mass ratio] 2.6 {ratio} High 1.0-2.5 [facility] Comment on above: Performed By: #### C BC, CMP, LIPD, TSH reflex FT4 #### [facility] [address], [place] [id number] ALP [Catalytic activity/Vol] 74 U/L Normal 40-129 [facility] Specialist Comment on above: Performed By: #### C BC, CMP, LIPD, TSH reflex FT4 #### [facility] [address], [place] [id number] ALT [Catalytic activity/Vol] 9 U/L Normal 9-46 [facility] Specialist Comment on above: Result Comment: 06/13 Female reference range changed. Performed By: #### C BC, CMP, LIPD, TSH reflex FT4 #### [facility] [address], [place] [id number] Anion gap [Moles/Vol] 18 mmol/L Normal 12-20 [facility] Comment on above: Result Comment: Effe ctive 07/19/2019 reference range changed. Performed By: #### C BC, CMP, LIPD, TSH reflex FT4 #### [facility] [address], [place] [id number] AST [Catalytic activity/Vol] 12 U/L Normal 10-40 [facility] Specialist Comment on above: Performed By: #### C BC, CMP, LIPD, TSH reflex FT4 #### [facility] [address], [place] [id number] Bilirubin [Mass/Vol] 0.66 mg/dL Normal 0.30-1.20 [facility] Comment on above: Performed By: #### C BC, CMP, LIPD, TSH reflex FT4 #### [facility] [address], [place] [id number] BUN/CREA 12 Ratio Normal 6-22 [facility] Comment on above: Performed By: #### C BC, CMP, LIPD, TSH reflex FT4 #### [facility] [address], [place] [id number] Calcium [Mass/Vol] 9.7 mg/dL Normal 8.6-10.2 [facility] Comment on above: Performed By: #### C BC, CMP, LIPD, TSH reflex FT4 #### [facility] [address], [place] [id number] Chloride [Moles/Vol] 109 mmol/L High 98-107 [facility] Comment on above: Performed By: #### C BC, CMP, LIPD, TSH reflex FT4 #### [facility] [address], [place] [id number] CO2 [Moles/Vol] 23 mmol/L Normal 20-31 [facility] Comment on above: Performed By: #### C BC, CMP, LIPD, TSH reflex FT4 #### [facility] [address], [place] [id number] Creatinine [Mass/Vol] 2.1 mg/dL High 0.7-1.4 [facility] Comment on above: Performed By: #### C BC, CMP, LIPD, TSH reflex FT4 #### [facility] [address], [place] [id number] eGFRAA 38 mL/min/1.73m2 Low >60 [facility] Comment on above: Performed By: #### C BC, CMP, LIPD, TSH reflex FT4 #### [facility] [address], [place] [id number] eGFRNAA 31 mL/min/1.73m2 Low >60 [facility] Specialist Comment on above: Performed By: #### C BC, CMP, LIPD, TSH reflex FT4 #### [facility] [address], [place] [id number] Globulin (S) [Mass/Vol] 1.7 g/dL Low 1.9-3.7 [facility] Comment on above: Performed By: #### C BC, CMP, LIPD, TSH reflex FT4 #### [facility] [address], [place] [id number] Glucose [Mass/Vol] 84 mg/dL Normal 65-[address] [facility] Electron Microscopist Comment on above: Result Comment: For FASTING Glucose --- ADA reference ranges: Normal 65-99 mg/dl Prediabetes 100-125 Diabetes >/= 126 Performed By: #### C BC, CMP, LIPD, TSH reflex FT4 #### [facility] [address], [place] [id number] Potassium [Moles/Vol] 5.0 mmol/L Normal 3.5-5.5 [facility] Specialist Comment on above: Performed By: #### C BC, CMP, LIPD, TSH reflex FT4 #### [facility] [address], [place] [id number] Protein [Mass/Vol] 6.2 g/dL Normal 6.1-8.[address] [facility] Electron Microscopist Comment on above: Performed By: #### C BC, CMP, LIPD, TSH reflex FT4 #### [facility] [address], [place] [id number] Sodium [Moles/Vol] 145 mmol/L Normal 135-146 [facility]scopist Comment on above: Performed By: #### C BC, CMP, LIPD, TSH reflex FT4 #### [facility] [address], [place] [id number] Urea nitrogen [Mass/Vol] 24 mg/dL Normal 7-25 [facility] Specialist Comment on above: Performed By: #### C BC, CMP, LIPD, TSH reflex FT4 #### [facility] [address], [place] [id number] Lipid Panelon 06-20-2021 Cholesterol [Mass/Vol] 153 mg/dL Normal 125-200 [facility] Comment on above: Result Comment: Low risk < 200mg/dL Borderline risk 201-239 mg/dl High risk > or equal to 240 Performed By: #### C BC, CMP, LIPD, TSH reflex FT4 #### [facility] [address], [place] [id number] Cholesterol in HDL [Mass/Vol] 37 mg/dL Low >40 [facility] Specialist Comment on above: Result Comment: High Cardiovascular Risk HDL <40 mg/dL Low Cardiovascular Risk HDL > or equal to 60 mg/dl Performed By: #### C BC, CMP, LIPD, TSH reflex FT4 #### [facility] [address], [place] [id number] Cholesterol in LDL [Mass/Vol] 93 mg/dL Normal [facility] Specialist Comment on above: Result Comment: LDL ATP III CLASSIFICATION LDL less than 100 mg/dl Optimal LDL 100-129 mg/dl Near or above optimal LDL 130-159 Borderline high LDL 160-189 High LDL greater than 189 mg/dl Very High Performed By: #### C BC, CMP, LIPD, TSH reflex FT4 #### [facility] [address], [place] [id number] Cholesterol in VLDL [Mass/Vol] 23 mg/dL Normal [facility] Specialist Comment on above: Performed By: #### C BC, CMP, LIPD, TSH reflex FT4 #### [facility] [address], [place] [id number] Cholesterol.total/Kely sterol in HDL [Mass ratio] 4 {ratio} Normal [facility] Specialist Comment on above: Performed By: #### C BC, CMP, LIPD, TSH reflex FT4 #### [facility] [address], [place] [id number] Triglyceride [Mass/Vol] 116 mg/dL Normal 30-150 N [facility] Center[facility] Microscopist Comment on above: Result Comment: TRIG ATPIII CLASSIFICATIONS TRIG less than 150 mg/dl Normal TRIG 150-199 mg/dl Borderline High TRIG 200-500 mg/dl High TRIG greather than 500 mg/dl Very High Performed By: #### C BC, CMP, LIPD, TSH reflex FT4 #### [facility] [address], [place] [id number] PSA SCREEN (MEDICARE)on TPSA 2.520 ng/mL Normal <4.000 [facility] Electron Microscopist Comment on above: Result Comment: PSA Test Method: ECLIA/Lidia e 601 Performed By: #### P SA MC #### [facility] [address] [place], [place] [id number] TSH w/ Reflex to Free T4on 1 08-21-2020 TSH 0.795 uIU/mL Normal 0.400-4.500 [facility] Electron Microscopist Comment on above: Performed By: #### C BC, CMP, LIPD, TSH reflex FT4 #### [facility] [address] [place], [place] [id number] Tobacco Screening.on 021 Fall risk assessment b) One or more fall s in the last year [facility] [employer] zuleyma 250 DO Work Phone: Tobacco use status CPHS b) No M [facility] zuleyma 250 DO Work Phone: Laboratory - Chemistry and C hemistry - challengeon 04-24-2021 Cholesterol [Mass/Vol] 118\S\118 below low threshold 140-200 [facility] zuleyma 250 DO Work Phone: Comment on above: Chol less than 200 m g/dl low risk Chol 201-239 mg/dl borderline risk Chol 240 mg/dl and greater high risk Cholesterol in LDL [Mass/Vol] 61\S\61 Normal 0-100 [facility] zuleyma [employer] DO Work Phone: Comment on above: LDL ATP III CLASSIFI CATION LDL less than 100 mg/dL Optimal LDL 100-129 mg/dL Near or above optimal LDL 130-159 mg/dL Borderline high LDL 160-189 mg/dL High LDL greater than 189 mg/dL Very high No Panel Informationon 04-24 0.0\S\0.0 Normal 0.0-0.2 [facility] zuleyma 250 DO Work Phone: Comment on above: PERFORMED BY:[facility] [place], [place] [phone] MEDICAL DIRECTORMO PALOMO M.D. 0.2\S\0.2 Normal 0.0-0.45 [facility] zuleyma 250 DO Work Phone: [phone] 0.4\S\0.4 Normal . [facility]u zuleyma 250 DO Work Phone: 1.1\S\1.1 Normal 1.00-4.8 [facility] zuleyma 250 DO Work Phone: [phone] 4.0\S\4.0 Normal 1.8-7.7 [facility] zuleyma 250 DO Work Phone: 0.1\S\0.1 Normal 0-0.5 [facility] zuleyma 250 DO Work Phone: 2.9\S\2.9 Normal . [facility] zuleyma 250 DO Work Phone: [phone] 6.9\S\6.9 Normal . [facility] zuleyma 250 DO Work Phone: 19.1\S\19.1 Normal . [facility] zuleyma 250 DO Work Phone: 70.7\S\70.7 Normal . [facility] zuleyma 250 DO Work Phone: 9.3\S\9.3 Normal 6.6-10.1 [facility] zuleyma 250 DO Work Phone: [phone] 176\S\176 Normal 150-450 [facility] zuleyma 250 DO Work Phone: 13.0\S\13.0 Normal 12.0-14.8 [facility] zuleyma 250 DO Work Phone: [phone] 33.4\S\33.4 Normal 32.5-35.6 [facility] zuleyma 250 DO Work Phone: [phone] 32.5\S\32.5 Normal 27.5-35.2 [facility] zuleyma 250 DO Work Phone: [phone] 97.3\S\97.3 Normal 83.5-101 [facility] [employer] zuleyma 250 DO Work Phone: [phone] 36.4\S\36.4 below low threshold 38.8-50.0 [facility] HeartCitycelebrity zuleyma 250 DO Work Phone: [phone] 12.2\S\12.2 below low threshold 13.0-17.0 [facility] zuleyma 250 DO Work Phone: [phone] 3.75\S\3.75 below low threshold 3.90-5.60 [facility] zuleyma 250 DO Work Phone: [phone] 5.7\S\5.7 Normal 4.1-10.5 [facility] zuleyma 250 DO Work Phone: 32.8\S\32.8 Normal 25.1-36.5 [facility] zuleyma 250 DO Work Phone: Comment on above: PERFORMED BY:[facility] [place], [place] [phone] MEDICAL DIRECTORMO PALOMO M.D. 1.0\S\1.0 Normal [facility]rapeutics[facility] zuleyma [facility] DO Work Phone: Comment on above: INR Therapeutic Rang e A) Pre- and Peroperative OAT started two weeks before surgery. NOT HIP SURGERY: 1.5 - 2.5 HIP SURGERY: 2 - 3 B) Primary and secondary prevention of venous THROMBOSIS: 2 - 3 C) Active venous thrombosis, pulmonary embolism and prevention of recurrent venous thrombosis: 2 - 3 D) Prevention of arterial thromboembolism including patients with mechanical heart valves: 3 - 4.5 11.4\S\11.4 Normal 9.0-12.9 [facility] zuleyma 250 DO Work Phone: 20.4\S\20.4 below low threshold 22.0-30.0 [facility] zuleyma 250 DO Work Phone: 109\S\109 Normal 95-114 [facility]nie amor 250 DO Work Phone: 5.0\S\5.0 Normal 3.5-5.1 [facility]-Bonnie amor 250 DO Work Phone: 140\S\140 Normal 136-146 [facility] HeartPatricia amor 250 DO Work Phone: 34\S\34 above high threshold 9-23 [facility]-Bonnie amor 250 DO Work Phone: 29\S\29 Normal [facility] HeartPatricia amor 250 DO Work Phone: Comment on above: GFR estimated refere nce range: According to KDOQI guidelines, <60 ml/min/1.73m2 is sufficient to diagnose a patient with chronic kidney disease. 24\S\24 Normal [facility] Ed amor 250 DO Work Phone: 2.57\S\2.57 above high threshold 0.64-1.27 [facility] Ed amor 250 DO Work Phone: 3.4\S\3.4 Normal <5.0 [facility] HeartPatricia amor 250 DO Work Phone: Comment on above: PERFORMED BY:[place] [address] [place], [place] [phone] MEDICAL DIRECTORMO PALOMO M.D. 22\S\22 Normal [facility] HeartPatricia amor 250 DO Work Phone: 110\S\110 Normal 35-149 [facility] HeartMichaelCooperstown Medical Centermarquis amor 250 DO Work Phone: Comment on above: TRIG ATP III CLASSIF ICATION TRIG less than 150 mg/dL Normal TRIG 150-199 mg/dL Borderline high TRIG 200-500 mg/dL High TRIG greater than 500 mg/dL Very high Standard traceable to the Center for Disease Conrtrol and Prevention (CDC) test method. 35\S\35 Normal 29-71 [facility]-Sandu zuleyma 250 DO Work Phone: Comment on above: HDL CHOL ATP-III CLA SSIFICATION Cardiovascular Risk HDL > or equal to 60 mg/dL LOW HDL < 40 mg/dL HIGH [facility] Heart-[employer]u zuleyma 250 DO Work Phone: Cardiovascular Lab Reporton 11-14-2017 Cardiovascular Lab Report [facility] Patient Name: Apolinar Norman [id number] Physician: Cameron Bojorquez M.D.Department of Service Date: 11/13/2017Medicine Birthdate: 1Division of Room #: CCCardiologyAdult CardiovascularServicesW[facility] [place], [place] [address]Yinsn Fax Cardiovascular Laboratory ReportFINAL IMPRESSIONS:1. 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 One of three bypass grafts patent; the left internal mammary artery graft to the left anterior descending is patent.3. 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 Aplkqwvw-zj-gzjzwb systemic hypertension.5. Severe peripheral artery disease with calcific common femoral and external iliac artery plaque.RECOMMENDATIONS/P [place]:1. Aggressive cardiovascular risk factor modification.2. Optimization of medical management; aspirin, beta-gavi, statin, and angiotensin-converting enzyme inhibitor are indicated.3. The patient's coronary anatomy does not lend itself well to percutaneous revascularization. The patient's symptoms appear atypical and the degree of ischemia is small; conservative management is recommended for now.4. Should the patient's symptoms worsen or there is concern regarding classic angina, he may be evaluated for redo coronary artery bypass graft surgery; given the porcelain aorta, he will likely be deemed too high risk.5. Follow up with Dr. Gibbons as scheduled.6. Follow up with Dr. Jonas as scheduled.PROCEDURES: Limited femoral angiography, bilateral selective coronaryangiography, angiography of the saphenous vein graft, angiography of theright subclavian artery, angiography of the left internal mammary arterygraft, placement of a 6-Uruguayan MynxGrip closure device.METHODS: After risks, benefits, and alternatives were explained, writteninformed consent was obtained. The patient was prepped and draped in usualsterile fashion over both groins. Using 1% lidocaine solution, localinfiltration anesthesia was achieved. Using a modified Seldinger techniqueand a micropuncture kit, access to the right common femoral artery wasobtained. A 6-Uruguayan 11 cm sheath was inserted without difficulty.Baseline femoral angiography was performed.Bilateral selective coronary angiography was performed using limitedamounts of hand injection utilizing 6-Uruguayan JL4, JR4, and AR2 catheters.The AR2 was used to cannulate the saphenous vein graft and angiographyperformed. Subsequently this was exchanged out for JR catheter. This wasused to cannulate the right subclavian. With the aid of an exchangedlength Glidewire pannus tape angled tapered catheter, angiography of theright subclavian was performed. This did not reveal evidence of a patentright internal mammary artery graft.The catheter was retracted into the aortic arch. It was exchanged out laura IM catheter. The left subclavian was cannulated and the IM catheterused for angiography of the left internal mammary artery graft. Afterreviewing the images, it was elected to conclude the procedure.A 6-Uruguayan MynxGrip closure device was deployed per protocol achievingoptimal hemostasis. Overall, the patient tolerated the procedure well.There were no overt complications. [facility].FINDINGS:Hemod ynamics:AO 152/72.LEFT VENTRICULOGRAPHY: This was not performed.CORONARY ARTERIES:Left main coronary artery: This arises from the left coronary cusp. Thereis a 95-99% ostial and proximal stenosis.Left anterior descending coronary artery. This shows continuation of theleft main stenosis and is occluded in the midportion. Distal filling isseen via a patent left internal mammary artery graft.Left circumflex coronary artery: There is a stump occluded at the ostium.There are bswm-ru-vtim collaterals from the left anterior descending.Right coronary artery: This is a dominant vessel giving rise to theposterior descending and posterolateral branches. It dhbttepviby-rk-bygwhd diffuse calcific disease with sequential 60%, 70% and80% stenoses in the proximal and distal vessels. There is heavycalcification throughout and significant tortuosity.GRAFT ANGIOGRAPHY;Left internal mammary artery graft to the left anterior descending: Thisis patent.Saphenous vein graft to the obtuse marginal: This appears to be stumpoccluded at the site of a previous stent.Right internal mammary artery graft: This could not be visualized and ispresumed to be occluded.LIMITED FEMORAL ANGIOGRAPHY: shows severe calcific plaque in the commonfemoral artery and external iliac artery.INDICATIONS: Atypical chest pain, abnormal stress test.Electronically Signed by:Cameron Bojorquez M.D. 11/21/2017 10:32 A Cameron Bojorquez M.D.Date Dict: 11/13/2017/01:43 P/Cameron Bojorquez M.D.Date Trans: 11/14/2017 07:53 A/mmoDN_JN:[id number]: Marcial Jonas M.D. [address] [place] [id number] Justo Cameron M.D. [address] [id number] Justo Gibbons M.D. [address] [facility] CHEST AND LATERALon 04-12-20 [facility]ERAL [facility] Lgxaoip[address] [place] [address] ==Patient Name: Apolinar NORMAN : 1Sex: MAge: Race: WhiteMRN: [id number]. Location: OUTPPatient Status: OVisit #: [id number] Date: 04/12/2017 7:00:00 AMCompleted Date: 04/12/2017 08:13 AMRequesting Provider: JUSTO GIBBONS Attending Provider: JUSTO GIBBONS Report Copy To: Signs & Symptoms: Post Pacemaker/AICD PlacementHistory: Patient history not availableComments: Check Pacemaker/AICD Lead Position, Chest X-ray PA \EANDE\ LAT in Dept ;DO NOT lift affected arm above shoulder. S/P pacemaker/ICD implant. Verify lead placementExam: CHEST AND LATERALAccession #: [id number] =========CHEST AND LATERAL 04/12/2017 8:13 AM EDT SIGNS AND SYMPTOMS: Post Pacemaker/AICD Placement TECHNOLOGIST COMMENTS: Post Pacemaker/AICD Placement. Check lead positioning. QUESTION FOR THE RADIOLOGIST: Check Pacemaker/AICD Lead Position, Chest X-ray PA \EANDE\ LAT in Dept ;DO NOT lift affected arm above shoulder. S/P pacemaker/ICD implant. Verify lead placement PROTOCOL: AP(PA) and Lateral views were obtained. COMPARISON: 2011 FINDINGS: Interval placement of a left transvenous dual lead pacemaker with leads tips likely overlying the right atrium and right ventricle.Median sternotomy wires, unchanged.Unchanged enlarged cardiac silhouette. Unchanged mediastinal silhouette.Unchanged small left basal opacity, likely scarring. Otherwise lungs are clear. No pleural effusion. No pneumothorax. IMPRESSION: Interval placement of a left transvenous dual lead pacemaker with leads tips likely overlying the right atrium and right ventricle. Approved by:Darell Witt on 04/12/2017 8:20 AM EDT. I, Ethan Epperson, have reviewed the images and report and concur with these findings. Electronically signed by:Ethan Epperson. Transcribed by: [email or web address], User Resident: DARELL WITTElectronically Signed by: ETHAN EPPERSON @ 04/12/2017 10:14 AMI personally read this/these film(s) with this resident Normal [facility] Comment on above: Order Comment: Check Pacemaker/AICD Lead Position, Chest X-ray PA \EANDE\ LAT in Dept ;DO NOT lift affected arm above shoulder. S/P pacemaker/ICD implant. Verify lead placement Cardiovascular Lab Reporton 04-12-2017 Cardiovascular Lab Report [facility] Patient Name: Apolinar Norman MR #: [id number] Physician: Justo Gibbons M.D.Department of Service Date: 04/11/2017Medicine Birthdate: 1Division of Room #: 3AB [id number] Cardi[facility]ServicesW[facility]Center[address] [place], [place] [address]Idmvi Fax Cardiovascular Laboratory ReportINDICATION: Mr. Norman is a long-term patient of mine from [place]. Hehas a history of coronary artery disease with coronary artery bypassgrafting. Last coronary catheterization was in 2010, showed mild left maindisease. The left anterior and circumflex arteries were occluded. Theleft internal mammary graft to the left anterior descending and the rightinternal mammary graft to the diagonal were patent. He had a stent in thevein graft to an obtuse marginal. He has a normal ejection fraction.He has underlying sinus bradycardia.As mentioned, ejection fraction is normal. He also has some diastolicheart failure. He has very frequent ventricular ectopy that was documentedand was troublesome to him. We placed him on beta gavi, which he wasunacceptably bradycardic, therefore in the absence of ischemia to correct,we made a decision to treat his symptomatic bradycardia on necessarymedication which is a beta gavi for his coronary artery disease andventricular ectopy. We elected to place a permanent pacemaker and restarthis beta gavi. Ejection fraction is 60% by echocardiography.He also had a nuclear stress test on March 10, which showed no evidence ofischemia and a 45-50% ejection fraction.It would not appear that he was going to require any ventricular pacing.Ejection fraction 60% by echocardiogram and 45-50% by nuclear. He had noindication for a DROP PRESS HAND device. Consent was obtained. He has chronic renalinsufficiency. Consent was also obtained for a low contrast venogram.After consent was obtained, he was brought to the EP suite and sterileprepped and draped. He was given conscious sedation. He was givenvancomycin 1.5 g IV. He is allergic to cephalosporins.At that point, through use of both scalpel, Bovie and Metzenbaum scissors,dissection was taken down to the pectoralis muscle where throughdissection, a pacemaker pocket was created from within the pocket. Accesswas achieved to the left subclavian vein.Through the use of breakaway introducer sheath, active fixation atrial andventricular leads were placed, they were tested on multiple occasions.They were tethered by 0 silk. There was some bleeding around the insertionsite. A pursestring silk suture was placed.The device was attached, secured, placed in the pocket, tethered with theheader suture of 0 silk. The pocket was irrigated with bacitracin andgentamicin.The wound was closed in 2 running layers of 2-0 Vicryl, running layer of3-0 Vicryl, adhered with Dermabond and Steri-Strips. Sponge and needlecounts were correct. Total contrast was 10 mL. Fluoroscopy time 7.6minutes. Device was a [employer] Accolade [id number]. The atrial andventricular leads were [employer] Ingevity. The atrial lead [id number].The ventricular lead [id number].Sensed P and R waves were 3.5 and 9 mV, pacing threshold 0.5 millisecondswas 0.5 V in the ventricle, 0.9 V in the atrium. Impedance 863 ohms in theatrium and 1132 ohms in the ventricle.ASSESSMENT:1. Conscious sedation.2. Contrast injection for venography.3. Venography of the left upper extremity.4. Fluoroscopy.5. Placement of a dual-chamber pacemaker.Sponge and needle counts were correct.Electronically Signed by:Justo Gibbons M.D. 04/14/2017 02:12 P Justo Gibbons M.D.Date Dict: 04/11/2017/11:02 Hannah/Justo Gibbons M.D.Date Trans: 04/12/2017 03:29 Hannah/Paula_JN:[id number]: Justo Cameron M.D. 3 [facility] [address] Normal [facility] Discharge Summaryon 04-12-20 Discharge Summary MR#: [id number] [place] [address] Pt. Name: Apolinar Norman Admitted: 04/11/2017 Discharged: 04/12/2017 Date of : 1940 Physician: Jeremiah Canseco M.D. DISCHARGE SUMMARYPRINCIPAL DIAGNOSIS: Symptomatic bradycardia, admitted for pacemakerinsertion.JALIL CERVANTES DIAGNOSIS: Coronary artery disease, dyslipidemia, chronic kidneydisease, hypertension, peripheral vascular disease, gastroesophageal refluxdisease.HOSPITAL COURSE: The patient was admitted yesterday and had a pacemakerimplanted and he did well overnight. In the morning, he had his pacemakerinterrogated which was normal. Chest x-ray was also within normal limits.He is being discharged today on the following medications: Amlodipine 5 mg1 tablet oral daily, ascorbic calcium oral 1000 mg 1 tablet oral daily,aspirin 81 mg 1 tablet oral daily, Atorvastatin 80 mg 1 tablet oral daily,Plavix 75 mg 1 tablet oral daily, dicyclomine 20 mg 1 tablet oral b.i.d.,glyburide 1.25 mg 1 tablet oral daily, lansoprazole 15 mg 1 capsule oraldaily, levothyroxine 100 mcg 1 tablet oral daily, lisinopril 20 mg 1 tabletoral daily, metoprolol succinate ER 50 mg 1 tablet oral daily, multivitamin1 tablet oral daily, nitroglycerin 0.4 mg 1 tablet as needed, Leland-3 acid4 caps by mouth at bedtime, zolpidem 10 mg oral at bedtime p.r.n.Follow up in the [place] [facility] with Dr Justo Gibbons on04/21/2017 at 1:20 pm and for pacemaker check on 05/26/2017 at 9:30 am. Yenny follow up with Dr Cameron in 2-4 weeks.Electronically Signed by:Jeremiah Canseco M.D. 04/19/2017 12:55 P Jeremiah Canseco M.D. I personally saw this patient on the day of the encounter, performed thekey portion(s) of the service and participated in the management andconfirm the resident's documentation. Please note there may be anadditional personal documentation from me. Date Dict: 04/12/2017/11:42 A/Andree Ahuja, MANISHAate Trans: 04/12/2017 08:53 P/mmoDN_[id number]: Justo Cameron M.D. [address] [facility] POC GLUCOSE LABon 04-12-2017 Glucose mass conc 109 mg/dL High 70-100 [facility] Comment on above: Performed By: #### [id number] ####[facility] [place] [address], [place] Glucose mass conc 136 mg/dL High 70-100 [facility] Comment on above: Performed By: #### 8 [id number] ####[facility] [place] [address], [place] POC GLUCOSE LABon 04-11-2017 Glucose mass conc 152 mg/dL High 70-100 [facility] Comment on above: Performed By: #### 8 [id number] ####[facility] [place] [address], [place] Glucose mass conc 143 mg/dL High 70-100 [facility] Comment on above: Performed By: #### 8 [id number] ####[facility] [place] [address], [place] Vital Signs Date Time Vital Sign Value Performing Clinician Facility 12-16-2024 10:05040 Body height 180.3 cm Justo Cameron MD Work Phone: [facility] 12-16-2024 10:05040 Body mass index (BMI) [Ratio] 24.97 kg/m2 Justo Cameron MD Work Phone: [facility] 12-16-2024 10:05040 Body weight 81.19 kg Justo Cameron MD Work Phone: [facility] 12-16-2024 10:05-0400 Diastolic blood pressure 68 mm[Hg] Justo Cameron MD Work Phone: [facility] 12-16-2024 10:05-0400 Heart rate 60 /min Justo Cameron MD Work Phone: [facility] 12-16-2024 10:05-0400 SaO2% (BldA) [Mass fraction] 98 % Justo Cameron MD Work Phone: [facility] 12-16-2024 10:05-0400 Systolic blood pressure 128 mm[Hg] Justo Cameron MD Work Phone: [facility] 11-25-2024 11:20-0400 Body height 180.3 cm Raffi Lopez DPM Work Phone: [facility] 11-25-2024 11:20-0400 Body mass index (BMI) [Ratio] 26.64 kg/m2 Raffi Lopez DPM Work Phone: [facility] 11-25-2024 11:20-0400 Body weight 86.64 kg Raffi Lopez DPM Work Phone: [facility] 11-25-2024 11:20-0400 Respiratory rate 16 /min Raffi Lopez DPM Work Phone: [facility] 10-20-2024 08:37-0400 Body height 180.34 cm [facility] 10-20-2024 08:37-0400 Body mass index (BMI) [Ratio] 27.4 kg/m2 [facility] 10-20-2024 08:37-0400 Body weight 89.35 kg [facility] 10-20-2024 08:37-0400 Diastolic blood pressure 75 mm[Hg] [facility] 10-20-2024 08:37-0400 Heart rate 60 /min [facility] 10-20-2024 08:37-0400 Respiratory rate 16 /min [place] 10-20-2024 08:37-0400 SaO2% (BldA) [Mass fraction] 99 % [facility] 10-20-2024 08:37-0400 Systolic blood pressure 134 mm[Hg] [facility] 09-09-2024 11:27-0500 Body height 180.3 cm Raffi Brett DPM Work Phone: [facility] 09-09-2024 11:27-0500 Body mass index (BMI) [Ratio] 26.64 kg/m2 Raffi Brett DPM Work Phone: [facility] 09-09-2024 11:27-0500 Body weight 86.64 kg Raffi Lopez DPM Work Phone: [facility] 09-09-2024 11:27-0500 Respiratory rate 18 /min Raffi Lopez DPM Work Phone: [facility] 07-28-2024 09:55-0500 Body height 180.34 cm [facility] 07-28-2024 09:55-0500 Body temperature 96.9 [degF] [place] 07-28-2024 09:55-0500 Diastolic blood pressure 59 mm[Hg] [facility] 07-28-2024 09:55-0500 Heart rate 61 /min [facility] 07-28-2024 09:55-0500 Respiratory rate 16 /min [place] 07-28-2024 09:55-0500 SaO2% (BldA) [Mass fraction] 98 % [facility] 07-28-2024 09:55-0500 Systolic blood pressure 131 mm[Hg] [facility] 07-21-2024 11:09-0500 Body height 180.3 cm Justo Cameron MD Work Phone: [facility] 07-21-2024 11:09-0500 Body mass index (BMI) [Ratio] 26.64 kg/m2 Justo Cameron MD Work Phone: [facility] 07-21-2024 11:09-0500 Body weight 86.64 kg Justo Cameron MD Work Phone: [facility] 07-21-2024 11:09-0500 Diastolic blood pressure 64 mm[Hg] Justo Cameron MD Work Phone: [facility] Comment on above: standing 116/58 07-21-2024 11:09-0500 Heart rate 60 /min Justo Cameron MD Work Phone: [facility] Comment on above: standing 52 07-21-2024 11:09-0500 SaO2% (BldA) [Mass fraction] 99 % Justo Cameron MD Work Phone: [facility] 07-21-2024 11:09-0500 Systolic blood pressure 124 mm[Hg] Justo Cameron MD Work Phone: [facility] Comment on above: standing 116/58 06-24-2024 11:27-0500 Body height 180.3 cm Raffi Lopez DPM Work Phone: [facility] 06-24-2024 11:27-0500 Body mass index (BMI) [Ratio] 27.34 kg/m2 Raffi Loepz DPM Work Phone: [facility] 06-24-2024 11:27-0500 Body weight 88.91 kg Raffi Lopez DPM Work Phone: [facility] 06-24-2024 11:27-0500 Respiratory rate 18 /min Raffi Lopez DPM Work Phone: [facility] 05-05-2024 14:29-0400 Body height 179.07 cm II Justo Cameron Work Phone: [facility] 05-05-2024 14:29-0400 Body mass index (BMI) [Ratio] 26.5 kg/m2 II Justo Cameron Work Phone: [facility] 05-05-2024 14:29-0400 Body weight 85 kg II Justo Cameron Work Phone: [facility] 05-05-2024 14:29-0400 Diastolic blood pressure 68 mm[Hg] II Justo Cameron Work Phone: [facility] 05-05-2024 14:29-0400 Systolic blood pressure 168 mm[Hg] II Justo Cameron Work Phone: [facility] 05-05-2024 10:16-0400 Body temperature 97.3 [degF] II Justo Cameron Work Phone: [facility] 05-05-2024 10:16-0400 Heart rate 60 /min II Justo Cameron Work Phone: [facility] 05-05-2024 10:16-0400 Respiratory rate 16 /min II Justo Cameron Work Phone: [facility] 05-05-2024 10:16-0400 SaO2% (BldA) [Mass fraction] 99 % II Justo Cameron Work Phone: [facility] 05-03-2024 11:49-0400 Body height 179.07 cm II Justo Cameron Work Phone: [facility] 05-03-2024 11:49-0400 Body mass index (BMI) [Ratio] 26.7 kg/m2 II Justo Cameron Work Phone: [facility] 05-03-2024 11:49-0400 Body temperature 97.8 [degF] II Justo Cameron Work Phone: [facility] 05-03-2024 11:49-0400 Body weight 85.72 kg II Justo Cameron Work Phone: [facility] 05-03-2024 11:49-0400 Diastolic blood pressure 84 mm[Hg] II Justo Cameron Work Phone: [facility] 05-03-2024 11:49-0400 Heart rate 62 /min II Justo Cameron Work Phone: [facility] 05-03-2024 11:49-0400 Respiratory rate 16 /min II Justo Cameron Work Phone: [facility] 05-03-2024 11:49-0400 SaO2% (BldA) [Mass fraction] 98 % II Justo Cameron Work Phone: [facility] 05-03-2024 11:49-0400 Systolic blood pressure 126 mm[Hg] II Justo Cameron Work Phone: [facility] 04-22-2024 10:41-0400 Body height 179.1 cm Tawanda Pro DO Work Phone: [facility] 04-22-2024 10:41-0400 Body mass index (BMI) [Ratio] 26.74 kg/m2 Tawanda Pro DO Work Phone: [facility] 04-22-2024 10:41-0400 Body weight 85.73 kg Tawanda Pro DO Work Phone: [facility] 04-22-2024 10:41-0400 Diastolic blood pressure 72 mm[Hg] Tawanda Pro DO Work Phone: [facility] 04-22-2024 10:41-0400 Heart rate 60 /min Tawanda Pro DO Work Phone: [facility] 04-22-2024 10:41-0400 Systolic blood pressure 140 mm[Hg] Tawanda Pro DO Work Phone: [facility] 04-15-2024 11:29-0400 Body height 180.3 cm Raffi Lopez DPM Work Phone: [facility] 04-15-2024 11:29-0400 Body mass index (BMI) [Ratio] 27.34 kg/m2 Raffi Lopez DPM Work Phone: [facility] 04-15-2024 11:29-0400 Body weight 88.91 kg Raffi Lopez DPM Work Phone: [facility] 04-15-2024 11:29-0400 Diastolic blood pressure 80 mm[Hg] Raffi Lopez DPM Work Phone: [facility] 04-15-2024 11:29-0400 Heart rate 75 /min Raffi Lopez DPM Work Phone: [facility] 04-15-2024 11:29-0400 Respiratory rate 18 /min Raffi Lopez DPM Work Phone: [facility] 04-15-2024 11:29-0400 Systolic blood pressure 128 mm[Hg] Raffi Lopez DPM Work Phone: [facility] 03-24-2024 16:00-0400 Body height 180.3 cm Justo Cameron MD Work Phone: [facility] 03-24-2024 16:00-0400 Body mass index (BMI) [Ratio] 27.34 kg/m2 Justo Cameron MD Work Phone: [facility] 03-24-2024 16:00-0400 Body weight 88.91 kg Justo Cameron MD Work Phone: [facility] 03-24-2024 16:00-0400 Diastolic blood pressure 66 mm[Hg] Justo Cameron MD Work Phone: [facility] 03-24-2024 16:00-0400 Heart rate 62 /min Justo Cameron MD Work Phone: [facility] 03-24-2024 16:00-0400 SaO2% (BldA) [Mass fraction] 97 % Justo Cameron MD Work Phone: [facility] 03-24-2024 16:00-0400 Systolic blood pressure 128 mm[Hg] Justo Cameron MD Work Phone: [facility] 02-10-2024 11:04-0400 Body temperature 97.4 [degF] II Justo Cameron Work Phone: [facility] 02-10-2024 11:04-0400 Diastolic blood pressure 66 mm[Hg] II Justo Cameron Work Phone: [facility] 02-10-2024 11:04-0400 Heart rate 66 /min II Justo Cameron Work Phone: [facility] 02-10-2024 11:04-0400 Respiratory rate 16 /min II Justo Cameron Work Phone: [facility] 02-10-2024 11:04-0400 SaO2% (BldA) [Mass fraction] 92 % II Justo Cameron Work Phone: [facility] 02-10-2024 11:04-0400 Systolic blood pressure 151 mm[Hg] II Justo Cameron Work Phone: [facility] 02-10-2024 06:33-0400 Body weight 90 kg II Justo Cameron Work Phone: [facility] 02-05-2024 08:40-0400 Inhaled oxygen flow rate 0 L/min II Justo Cameron Work Phone: [facility] 02-04-2024 13:17-0400 Body height 177.8 cm II Justo Cameron Work Phone: [facility] 02-04-2024 13:17-0400 Body mass index (BMI) [Ratio] 29 kg/m2 II Justo Cameron Work Phone: [facility] 12-09-2023 09:11-0400 Body height 180.34 cm II Justo Cameron Work Phone: [facility] 12-09-2023 09:11-0400 Body mass index (BMI) [Ratio] 27.1 kg/m2 II Justo Cameron Work Phone: [facility] 12-09-2023 09:11-0400 Body temperature 97.5 [degF] II Justo Cameron Work Phone: [facility] 12-09-2023 09:11-0400 Body weight 88.45 kg II Justo Cameron Work Phone: [facility] 12-09-2023 09:11-0400 Diastolic blood pressure 80 mm[Hg] II Justo Cameron Work Phone: [facility] 12-09-2023 09:11-0400 Heart rate 50 /min II Justo Cameron Work Phone: [facility] 12-09-2023 09:11-0400 SaO2% (BldA) [Mass fraction] 98 % II Justo Cameron Work Phone: [facility] 12-09-2023 09:11-0400 Systolic blood pressure 118 mm[Hg] II Justo Camreon Work Phone: [facility] 11-26-2023 14:40-0400 Diastolic blood pressure 58 mm[Hg] II Justo Cameron Work Phone: [facility] 11-26-2023 14:40-0400 Heart rate 57 /min II Justo Caemron Work Phone: [facility] 11-26-2023 14:40-0400 Respiratory rate 20 /min II Justo Cameron Work Phone: [facility] 11-26-2023 14:40-0400 SaO2% (BldA) [Mass fraction] 96 % II Justo Cameron Work Phone: [facility] 11-26-2023 14:40-0400 Systolic blood pressure 150 mm[Hg] II Justo Cameron Work Phone: [facility] 11-26-2023 08:33-0400 Body height 180.34 cm II Justo Cameron Work Phone: [facility] 11-26-2023 08:33-0400 Body weight 88 kg II Justo Cameron Work Phone: [facility] 11-13-2023 09:50-0400 Diastolic blood pressure 77 mm[Hg] II Justo Cameron Work Phone: [facility] 11-13-2023 09:50-0400 Heart rate 65 /min II Justo Cameron Work Phone: [facility] 11-13-2023 09:50-0400 Respiratory rate 12 /min II Justo Cameron Work Phone: [facility] 11-13-2023 09:50-0400 SaO2% (BldA) [Mass fraction] 100 % II Justo Cameron Work Phone: [facility] 11-13-2023 09:50-0400 Systolic blood pressure 174 mm[Hg] II Justo Cameron Work Phone: [facility] 11-13-2023 08:12-0400 Body height 180.34 cm II Justo Cameron Work Phone: [facility] 11-13-2023 08:12-0400 Body weight 88.45 kg II Justo Cameron Work Phone: [facility] 11-03-2023 10:54-0400 Body height 180.34 cm II Justo Cameron Work Phone: [facility] 11-03-2023 10:54-0400 Body mass index (BMI) [Ratio] 27.1 kg/m2 II Justo Cameron Work Phone: [facility] 11-03-2023 10:54-0400 Body temperature 97.6 [degF] II Justo Cameron Work Phone: [facility] 11-03-2023 10:54-0400 Body weight 88.45 kg II Justo Cameron Work Phone: [facility] 11-03-2023 10:54-0400 Diastolic blood pressure 84 mm[Hg] II Justo Cameron Work Phone: [facility] 11-03-2023 10:54-0400 Heart rate 88 /min II Justo Cameron Work Phone: [facility] 11-03-2023 10:54-0400 Respiratory rate 16 /min II Justo Cameron Work Phone: [facility] 11-03-2023 10:54-0400 SaO2% (BldA) [Mass fraction] 98 % II Justo Cameron Work Phone: [facility] 11-03-2023 10:54-0400 Systolic blood pressure 124 mm[Hg] II Justo Cameron Work Phone: [facility] 10-06-2023 09:12-0400 Diastolic blood pressure 58 mm[Hg] Yeison Farah DIRECTOR [employer] Work Phone: [facility] 10-06-2023 09:12-0400 Systolic blood pressure 102 mm[Hg] Yeison Farah DIRECTOR [employer] Work Phone: [facility] 10-06-2023 09:06-0400 Body height 154.9 cm Yeison Farah DIRECTOR [employer] Work Phone: [facility] 10-06-2023 09:06-0400 Body mass index (BMI) [Ratio] 36.84 kg/m2 Yeison Farah DIRECTOR [employer] Work Phone: [facility] 10-06-2023 09:06-0400 Body weight 88.45 kg Yeison Farah DIRECTOR [employer] Work Phone: [facility] 10-06-2023 09:06-0400 Heart rate 70 /min Yeison Farah DIRECTOR [employer] Work Phone: [facility] 10-01-2023 11:15-0400 Diastolic blood pressure 74 mm[Hg] II Justo Cameron Work Phone: [facility] 10-01-2023 11:15-0400 Heart rate 59 /min II Justo Cameron Work Phone: [facility] 10-01-2023 11:15-0400 Respiratory rate 16 /min II Justo Cameron Work Phone: [facility] 10-01-2023 11:15-0400 SaO2% (BldA) [Mass fraction] 95 % II Justo Cameron Work Phone: [facility] 10-01-2023 11:15-0400 Systolic blood pressure 146 mm[Hg] II Justo Cameron Work Phone: [facility] 10-01-2023 10:00-0400 Inhaled oxygen flow rate 6 L/min II Justo Cameron Work Phone: [facility] 10-01-2023 08:15-0400 Body mass index (BMI) [Ratio] 27.4 kg/m2 II Justo Cameron Work Phone: [facility] 10-01-2023 08:06-0400 Body height 180.34 cm II Justo Cameron Work Phone: [facility] 10-01-2023 08:06-0400 Body weight 89.35 kg II Justo Cameron Work Phone: [facility] 10-01-2023 06:33-0400 Body temperature 97.8 [degF] II Justo Cameron Work Phone: [facility] 09-09-2023 10:39-0500 Body height 180.34 cm II Justo Cameron Work Phone: [facility] 09-09-2023 10:39-0500 Body mass index (BMI) [Ratio] 27 kg/m2 II Justo Cameron Work Phone: [facility] 09-09-2023 10:39-0500 Body temperature 97.6 [degF] II Justo Cameron Work Phone: [facility] 09-09-2023 10:39-0500 Body weight 87.99 kg II Justo Cameron Work Phone: [facility] 09-09-2023 10:39-0500 Diastolic blood pressure 68 mm[Hg] II Justo Cameron Work Phone: [facility] 09-09-2023 10:39-0500 Heart rate 52 /min II Justo Cameron Work Phone: [facility] 09-09-2023 10:39-0500 Respiratory rate 16 /min II Justo Cameron Work Phone: [facility] 09-09-2023 10:39-0500 SaO2% (BldA) [Mass fraction] 98 % II Justo Cameron Work Phone: [facility] 09-09-2023 10:39-0500 Systolic blood pressure 110 mm[Hg] II Justo Cameron Work Phone: [facility] 08-21-2023 14:53-0500 Body height 180.3 cm Justo Cameron MD Work Phone: [facility] 08-21-2023 14:53-0500 Body mass index (BMI) [Ratio] 27.48 kg/m2 Justo Cameron MD Work Phone: [facility] 08-21-2023 14:53-0500 Body weight 89.36 kg Justo Cameron MD Work Phone: [facility] 08-21-2023 14:53-0500 Diastolic blood pressure 66 mm[Hg] Justo Cameron MD Work Phone: [facility] 08-21-2023 14:53-0500 Heart rate 58 /min Justo Cameron MD Work Phone: [facility] 08-21-2023 14:53-0500 SaO2% (BldA) [Mass fraction] 98 % Justo Cameron MD Work Phone: [facility] 08-21-2023 14:53-0500 Systolic blood pressure 132 mm[Hg] Justo Cameron MD Work Phone: [facility] 08-05-2023 14:20-0500 Body height 180.34 cm Randyjayashree Booodl Other [facility] 08-05-2023 14:20-0500 Body mass index (BMI) [Ratio] 27.12 kg/m2 MitoGeneticsjayashree Booodl Other [employer] Other 08-05-2023 14:20-0500 Body temperature 97.5 [degF] Randyjayashree Booodl Other [employer] Other 08-05-2023 14:20-0500 Body weight 88.23 kg MitoGeneticsjayashree Booodl Other [employer] Other 08-05-2023 14:20-0500 Body weight 88.22 kg II Justo Cameron Work Phone: [facility] 08-05-2023 14:20-0500 Diastolic blood pressure 82 mm[Hg] Aziz Bakhous Other [facility] 08-05-2023 14:20-0500 Respiratory rate 18 /min Aziz Bakhous Other [employer] Other 08-05-2023 14:20-0500 SaO2% (BldA) [Mass fraction] 98 % Aziz Bakhous Other [employer] Other 08-05-2023 14:20-0500 Systolic blood pressure 154 mm[Hg] Aziz Bakhous Other [facility] 02-11-2023 14:20-0400 Body height 180.34 cm Aziz Bakhous Other [employer] Other 02-11-2023 14:20-0400 Body mass index (BMI) [Ratio] 27.78 kg/m2 Aziz Bakhous Other [employer] Other 02-11-2023 14:20-0400 Body temperature 97.5 [degF] Aziz Bakhous Other [employer] Other 02-11-2023 14:20-0400 Body weight 90.36 kg Aziz Bakhous Other [employer] Other 02-11-2023 14:20-0400 Diastolic blood pressure 65 mm[Hg] Aziz Bakhous Other [employer] Other 02-11-2023 14:20-0400 Respiratory rate 18 /min Aziz Bakhous Other [employer] Other 02-11-2023 14:20-0400 SaO2% (BldA) [Mass fraction] 95 % Sophia Woo Other [employer] Other 02-11-2023 14:20-0400 Systolic blood pressure 138 mm[Hg] Sophia Woo Other [employer] Other 12-31-2022 09:00-0400 Body height 180.34 cm Husseinles Talavera Other [employer] Other 12-31-2022 09:00-0400 Body mass index (BMI) [Ratio] 27.89 kg/m2 Hussein Cansecorerobert Other [employer] Other 12-31-2022 09:00-0400 Body temperature 97.8 [degF] Hussein Talavera Other [employer] Other 12-31-2022 09:00-0400 Body weight 90.72 kg Hussein Cansecorer Other [employer] Other 12-31-2022 09:00-0400 Diastolic blood pressure 62 mm[Hg] Hussein Cansecorerobert Other [employer] Other 12-31-2022 09:00-0400 SaO2% (BldA) [Mass fraction] 98 % Hussein Talavera Other [employer] Other 12-31-2022 09:00-0400 Systolic blood pressure 116 mm[Hg] Hussein Buehrer Other [employer] Other 12-16-2022 09:45-0400 Body height 180.34 cm Hussein Cansecoaylin Other [employer] Other 12-16-2022 09:45-0400 Body mass index (BMI) [Ratio] 27.89 kg/m2 Hussein Talavera Other [employer] Other 12-16-2022 09:45-0400 Body temperature 97.8 [degF] Hussein Velarderobert Other [employer] Other 12-16-2022 09:45-0400 Body weight 90.72 kg Hussein Velarderobert Other [employer] Other 12-16-2022 09:45-0400 Diastolic blood pressure 78 mm[Hg] Hussein Talavera Other [employer] Other 12-16-2022 09:45-0400 SaO2% (BldA) [Mass fraction] 98 % Hussein Cansecoaylin Other [employer] Other 12-16-2022 09:45-0400 Systolic blood pressure 124 mm[Hg] Hussein Talavera Other [employer] Other 08-13-2022 09:33-0500 Body height 180.34 cm Tawanda Murdock MD Work Phone: [facility] 250 DO Work Phone: 08-13-2022 09:33-0500 Body mass index (BMI) [Ratio] 28.17 kg/m2 Tawanda Murdock MD Work Phone: [facility] 250 DO Work Phone: 08-13-2022 09:33-0500 Body surface area Derived from formula 2.12 m2 Tawanda Murdock MD Work Phone: [facility] 250 DO Work Phone: 08-13-2022 09:33-0500 Body weight 91.63 kg Tawanda Murdock MD Work Phone: [facility] 250 DO Work Phone: 08-13-2022 09:33-0500 Diastolic blood pressure 76 mm[Hg] Tawanda Murdock MD Work Phone: [facility] 250 DO Work Phone: 08-13-2022 09:33-0500 Heart rate 71 /min Tawanda Murdock MD Work Phone: [facility] 250 DO Work Phone: 08-13-2022 09:33-0500 Systolic blood pressure 130 mm[Hg] Tawanda Murdock MD Work Phone: [facility] 250 DO Work Phone: 04-22-2022 15:40-0400 Body height 180.34 cm Randyjayashree KBLEdagobertoRollstream Other [employer] Other 04-22-2022 15:40-0400 Body mass index (BMI) [Ratio] 27.47 kg/m2 Randyjayashree KBLEdagobertoRollstream Other [employer] Other 04-22-2022 15:40-0400 Body temperature 98.1 [degF] Randyjayashree Booodl Other [employer] Other 04-22-2022 15:40-0400 Body weight 89.36 kg Randyjayashree K[employer]to[employer] Other [employer] Other 04-22-2022 15:40-0400 Diastolic blood pressure 80 mm[Hg] Sophia Woo Other [employer] Other 04-22-2022 15:40-0400 Respiratory rate 18 /min Sophia Woo Other [employer] Other 04-22-2022 15:40-0400 SaO2% (BldA) [Mass fraction] 99 % Sophia Woo Other [employer] Other 04-22-2022 15:40-0400 Systolic blood pressure 144 mm[Hg] Sophia Woo Other [facility] [employer] Other 04-10-2022 09:33-0400 Body height 180.34 cm Tawanda Murdock MD Work Phone: [facility] [employer] 600 DO Work Phone: 04-10-2022 09:33-0400 Body mass index (BMI) [Ratio] 27.62 kg/m2 Tawanda Murdock MD Work Phone: [facility] [employer] 600 DO Work Phone: 04-10-2022 09:33-0400 Body surface area Derived from formula 2.1 m2 Tawanda Murdock MD Work Phone: [facility] [employer] 600 DO Work Phone: 04-10-2022 09:33-0400 Body weight 89.81 kg Tawanda Murdock MD Work Phone: [facility] [employer] 600 DO Work Phone: 04-10-2022 09:33-0400 Diastolic blood pressure 68 mm[Hg] Tawanda Murdock MD Work Phone: [facility] [employer] 600 DO Work Phone: 04-10-2022 09:33-0400 Heart rate 63 /min Tawanda Murdock MD Work Phone: [facility] 600 DO Work Phone: 04-10-2022 09:33-0400 Systolic blood pressure 132 mm[Hg] Tawanda Murdock MD Work Phone: [facility] 600 DO Work Phone: 02-15-2022 11:35-0400 Diastolic blood pressure 65 mm[Hg] II Justo Cameron Work Phone: [facility] 02-15-2022 11:35-0400 Heart rate 62 /min II Justo Cameron Work Phone: [facility] 02-15-2022 11:35-0400 Respiratory rate 17 /min II Justo Cameron Work Phone: [facility] 02-15-2022 11:35-0400 SaO2% (BldA) [Mass fraction] 98 % II Justo Cameron Work Phone: [facility] 02-15-2022 11:35-0400 Systolic blood pressure 135 mm[Hg] II Justo Cameron Work Phone: [facility] 02-15-2022 09:10-0400 Inhaled oxygen flow rate 2 L/min II Justo Cameron Work Phone: [facility] 02-15-2022 07:42-0400 Body temperature 97.3 [degF] II Justo Cameron Work Phone: [facility] 02-15-2022 06:00-0400 Body weight 89.1 kg II Justo Cameron Work Phone: [facility] 02-15-2022 00:20-0400 Inhaled oxygen concentration 55 % II Justo Cameron Work Phone: [facility] 02-14-2022 15:42-0400 Body height 182.88 cm II Justo Cameron Work Phone: [facility] 02-11-2022 09:20-0400 0 1 Tawanda Pro DO Work Phone: [facility] 250 DO Work Phone: Comment on above: [id number] 02-05-2022 12:30-0400 Body height 180.34 cm Hussein Talavera Other [employer] Other 02-05-2022 12:30-0400 Body mass index (BMI) [Ratio] 26.5 kg/m2 Hussein Talavera Other [employer] Other 02-05-2022 12:30-0400 Body temperature 97.6 [degF] Hussein Talavera Other [employer] Other 02-05-2022 12:30-0400 Body weight 86.18 kg Hussein Talavera Other [employer] Other 02-05-2022 12:30-0400 Diastolic blood pressure 64 mm[Hg] Hussein Talavera Other [employer] Other 02-05-2022 12:30-0400 SaO2% (BldA) [Mass fraction] 90 % Hussein Talavera Other [employer] Other 02-05-2022 12:30-0400 Systolic blood pressure 140 mm[Hg] Hussein Talavera Other [employer] Other 01-15-2022 11:24-0400 Diastolic blood pressure 70 mm[Hg] Tawanda Pro DO Work Phone: [facility] 250 DO Work Phone: 01-15-2022 11:24-0400 Systolic blood pressure 162 mm[Hg] Tawanda Pro DO Work Phone: [facility] 250 DO Work Phone: 01-15-2022 11:22-0400 Body height 180.34 cm Tawanda Pro DO Work Phone: [facility] 250 DO Work Phone: 01-15-2022 11:22-0400 Body mass index (BMI) [Ratio] 27.89 kg/m2 Tawanda Pro DO Work Phone: [facility] 250 DO Work Phone: 01-15-2022 11:22-0400 Body surface area Derived from formula 2.11 m2 Tawanda Pro DO Work Phone: [facility] 250 DO Work Phone: 01-15-2022 11:22-0400 Body weight 90.72 kg Tawanda Pro DO Work Phone: [facility] 250 DO Work Phone: 01-15-2022 11:22-0400 Diastolic blood pressure 64 mm[Hg] Tawanda Pro DO Work Phone: [facility] 250 DO Work Phone: 01-15-2022 11:22-0400 Heart rate 62 /min Tawanda Pro DO Work Phone: [facility] 250 DO Work Phone: 01-15-2022 11:22-0400 Systolic blood pressure 168 mm[Hg] Tawanda Pro DO Work Phone: [facility] 250 DO Work Phone: 01-10-2022 18:29-0400 Diastolic blood pressure 73 mm[Hg] BECCA Cameron Work Phone: [facility] 01-10-2022 18:29-0400 Heart rate 63 /min II Justo Cameron Work Phone: [facility] 01-10-2022 18:29-0400 Respiratory rate 16 /min II Justo Cameron Work Phone: [facility] 01-10-2022 18:29-0400 SaO2% (BldA) [Mass fraction] 96 % II Justo Cameron Work Phone: [facility] 01-10-2022 18:29-0400 Systolic blood pressure 147 mm[Hg] II Justo Cameron Work Phone: [facility] 01-10-2022 12:33-0400 Body height 175.26 cm II Justo Cameron Work Phone: [facility] 01-10-2022 12:33-0400 Body mass index (BMI) [Ratio] 28.6 kg/m2 II Justo Cameron Work Phone: [facility] 01-10-2022 12:33-0400 Body weight 87.99 kg II Justo Cameron Work Phone: [facility] 01-10-2022 08:21-0400 Body height 176.53 cm II Justo Cameron Work Phone: [facility] 01-10-2022 08:21-0400 Body mass index (BMI) [Ratio] 28.5 kg/m2 II Justo Cameron Work Phone: [facility] 01-10-2022 08:21-0400 Body temperature 97.8 [degF] II Justo Cameron Work Phone: [facility] 01-10-2022 08:21-0400 Body weight 89 kg II Justo Cameron Work Phone: [facility] 01-10-2022 08:21-0400 Diastolic blood pressure 74 mm[Hg] II Justo Cameron Work Phone: [facility] 01-10-2022 08:21-0400 Heart rate 67 /min II Justo Cameron Work Phone: [facility] 01-10-2022 08:21-0400 SaO2% (BldA) [Mass fraction] 99 % II Justo Cameron Work Phone: [facility] 01-10-2022 08:21-0400 Systolic blood pressure 170 mm[Hg] II Justo Cameron Work Phone: [facility] 12-31-2021 12:55-0400 Body height 180.34 cm Tawanda Murdock MD Work Phone: [facility] 250 DO Work Phone: 12-31-2021 12:55-0400 Body mass index (BMI) [Ratio] 28.03 kg/m2 Tawanda Murdock MD Work Phone: [facility] 250 DO Work Phone: 12-31-2021 12:55-0400 Body surface area Derived from formula 2.11 m2 Tawanda Murdock MD Work Phone: [facility] 250 DO Work Phone: 12-31-2021 12:55-0400 Body weight 91.17 kg Tawanda Murdock MD Work Phone: [facility] 250 DO Work Phone: 12-31-2021 12:55-0400 Diastolic blood pressure 64 mm[Hg] Tawanda Murdock MD Work Phone: [facility] 250 DO Work Phone: 12-31-2021 12:55-0400 Heart rate 60 /min Tawanda Murdock MD Work Phone: [facility] 250 DO Work Phone: 12-31-2021 12:55-0400 Systolic blood pressure 138 mm[Hg] Tawanda Murdock MD Work Phone: [facility] 250 DO Work Phone: 12-31-2021 11:21-0400 Diastolic blood pressure 64 mm[Hg] Tawanda Murdock MD Work Phone: [facility] 250 DO Work Phone: 12-31-2021 11:21-0400 Systolic blood pressure 154 mm[Hg] Tawanda Murdock MD Work Phone: [facility] 250 DO Work Phone: 12-31-2021 11:19-0400 Body height 180.34 cm Tawanda Murdock MD Work Phone: [facility] 250 DO Work Phone: 12-31-2021 11:19-0400 Body mass index (BMI) [Ratio] 28.03 kg/m2 Tawanda Murdock MD Work Phone: [facility] 250 DO Work Phone: 12-31-2021 11:19-0400 Body surface area Derived from formula 2.11 m2 Tawanda Murdock MD Work Phone: [facility] 250 DO Work Phone: 12-31-2021 11:19-0400 Body weight 91.17 kg Tawanda Murdock MD Work Phone: [facility] 250 DO Work Phone: 12-31-2021 11:19-0400 Heart rate 60 /min Tawanda Murdock MD Work Phone: [facility] 250 DO Work Phone: 12-31-2021 11:15-0400 Body height 180.34 cm Hussein Talavera Other [employer] Other 12-31-2021 11:15-0400 Body mass index (BMI) [Ratio] 26.5 kg/m2 Hussein Talavera Other [employer] Other 12-31-2021 11:15-0400 Body temperature 97.6 [degF] Hussein Apodacaehrer Other [employer] Other 12-31-2021 11:15-0400 Body weight 86.18 kg Hussein Cansecorer Other [employer] Other 12-31-2021 11:15-0400 Diastolic blood pressure 58 mm[Hg] Hussein Cansecorer Other [employer] Other 12-31-2021 11:15-0400 SaO2% (BldA) [Mass fraction] 97 % Hussein Cansecorer Other [employer] Other 12-31-2021 11:15-0400 Systolic blood pressure 142 mm[Hg] Hussein Apodacaehrer Other [employer] Other 08-21-2021 14:15-0500 Body height 180.34 cm Sameera Jolley Other [employer] Other 08-21-2021 14:15-0500 Body mass index (BMI) [Ratio] 26.36 kg/m2 Sameera Jolley Other [employer] Other 08-21-2021 14:15-0500 Body temperature 96.4 [degF] Sameera Jolley Other [employer] Other 08-21-2021 14:15-0500 Body weight 85.73 kg Sameera Jolley Other [employer] Other 08-21-2021 14:15-0500 Diastolic blood pressure 60 mm[Hg] Sameera Jolley Other [employer] Other 08-21-2021 14:15-0500 SaO2% (BldA) [Mass fraction] 92 % Sameera Jolley Other [employer] Other 08-21-2021 14:15-0500 Systolic blood pressure 140 mm[Hg] Sameera Jolley Other [employer] Other 05-14-2021 10:59-0400 Body height 177.8 cm Yeison Maresd Farah DIRECTOR [employer] Work Phone: [facility] 250 DO Work Phone: 05-14-2021 10:59-0400 Body mass index (BMI) [Ratio] 28.12 kg/m2 Yeison Maresd Farah DIRECTOR [employer] Work Phone: [facility] 250 DO Work Phone: 05-14-2021 10:59-0400 Body surface area Derived from formula 2.07 m2 Yeison Maresnew Farah DIRECTOR [employer] Work Phone: [facility] 250 DO Work Phone: 05-14-2021 10:59-0400 Body weight 88.91 kg Yeison Maresd Farah DIRECTOR [employer] Work Phone: [facility] 250 DO Work Phone: 05-14-2021 10:59-0400 Diastolic blood pressure 54 mm[Hg] Yeisonjimmy Farah DIRECTOR [employer] Work Phone: [facility] 250 DO Work Phone: 05-14-2021 10:59-0400 Heart rate 80 /min Yeison Maresnew Farah DIRECTOR [employer] Work Phone: [facility] 250 DO Work Phone: 05-14-2021 10:59-0400 Systolic blood pressure 130 mm[Hg] Yeison Farah DIRECTOR [employer] Work Phone: [facility] 250 DO Work Phone: 04-24-2021 16:11-0400 61 1 Yeison Farah DIRECTOR [employer] Work Phone: [facility] 250 DO Work Phone: Comment on above: FSLDL Encounters Encounter Date Encounter Type Care Provider Facility Start: 12-17-2024 End: 12-17-2024 Telephone encounter Davidson Clay Narcisacher PT Work Phone: [facility] Comment on above: PT Initial Eval Start: 12-16-2024 End: 12-16-2024 Bamboo flowsheet Justo Cameron MD Work Phone: [facility] Start: 12-16-2024 End: 12-16-2024 Bamboo flowsheet Justo Cameron MD Work Phone: [facility] Start: 12-16-2024 End: 12-16-2024 ambulatory JUSTO CAMERON Not Available Start: 12-16-2024 End: 12-16-2024 Assay of hemosiderin, quant Justo Cameron MD Work Phone: [facility] Start: 12-16-2024 End: 12-16-2024 Patient encounter procedure Justo Cameron MD Work Phone: [facility] Comment on above: Routine general medi rosa isela examination at health care facility (Primary Dx); ACP (advance care planning); Type 2 diabetes mellitus with stage 4 chronic kidney disease, without long-term current use of insulin (CMS/HCC); Chronic kidney disease, stage 4 (severe) (CMS/HCC); Weight loss; 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; Mixed hyperlipidemia (CMS/HCC); Acquired hypothyroidism (CMS/HCC); Primary insomnia Start: 11-25-2024 End: 11-25-2024 Bamboo flowsheet Raffi Lopez DPM Work Phone: [facility] Start: 11-25-2024 End: 11-25-2024 Bamboo flowsheet Raffi Lopez DPM Work Phone: [facility] Start: 11-25-2024 End: 11-25-2024 Office outpatient visit 15 minutes Raffi Lopez DPM Work Phone: [facility] Comment on above: Skin fissure (Primar y Dx); Diabetes mellitus due to underlying condition with diabetic polyneuropathy, with long-term current use of insulin ([facility]); Pain due to onychomycosis of toenails of both feet; Venous insufficiency Start: 11-25-2024 End: 11-25-2024 ambulatory RAFFI LOPEZ Not Available Start: 10-20-2024 Non-patient / Non-visit Justo Cameron II Work Phone: [facility] Physician [facility]monary Work Phone: Start: 10-20-2024 End: 10-20-2024 ambulatory Justoarthur Cameron II Work Phone: [facility] Work Phone: Start: 10-20-2024 End: 10-20-2024 Patient encounter procedure [facility] Work Phone: Start: 09-09-2024 End: 09-09-2024 Bamboo flowsheet Raffi Lopez DPM Work Phone: [facility] Start: 09-09-2024 End: 09-09-2024 Bamboo flowsheet Raffi Lopez DPM Work Phone: [facility] Start: 09-09-2024 End: 09-09-2024 Office outpatient visit 15 minutes Raffi Lopez DPM Work Phone: [facility] Comment on above: Skin fissure (Primar y Dx); Diabetes mellitus due to underlying condition with diabetic polyneuropathy, with long-term current use of insulin (CMS/HCC); Pain due to onychomycosis of toenails of both feet; Venous insufficiency Start: 09-09-2024 End: 09-09-2024 ambulatory RAFFI LOPEZ Not Available Start: 08-09-2024 End: 08-20-2024 Telephone encounter Luna Espinal PT [facility] Comment on above: re: CX of PT; FU; Fi nal Start: 08-02-2024 End: 08-03-2024 ambulatory Luna Espinal PT [facility] Comment on above: Vertigo (Primary Dx) Start: 07-28-2024 End: 07-28-2024 ambulatory [facility] Work Phone: Start: 07-28-2024 End: 07-28-2024 Patient encounter procedure [facility] Physician [facility] Work Phone: Start: 07-23-2024 End: 07-23-2024 ambulatory Luna Espinal PT [facility] Comment on above: Vertigo (Primary Dx) Start: 07-21-2024 End: 07-21-2024 Bamboo flowsheet Justo Cameron MD Work Phone: [facility] Start: 07-21-2024 End: 07-21-2024 Bamboo flowsheet Justo Cameron MD Work Phone: [facility] Start: 07-21-2024 End: 07-21-2024 Clinisync Result Encounter Generic External Data Provider [facility] External Department Unsolicited Start: 07-21-2024 Non-patient / Non-visit [facility] Physician [facility] Work Phone: Start: 07-21-2024 End: 07-21-2024 Office outpatient visit 25 minutes Justo Cameron MD Work Phone: [facility] Comment on above: Vertigo (Primary Dx) ; Diabetic nephropathy associated with type 2 diabetes mellitus (HCC) (CMS/HCC); Chronic hip pain, left; 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; Chronic obstructive pulmonary disease, unspecified ([facility]); Type 2 diabetes mellitus with diabetic chronic kidney disease ([facility]); Chronic kidney disease, stage 4 (severe) ([facility]); Type 2 diabetes mellitus with diabetic peripheral angiopathy without gangrene ([facility]); Chronic diastolic congestive heart failure ([facility]) Start: 07-21-2024 End: 07-21-2024 ambulatory JUSTO Ham RAKESH Not Available Start: 06-24-2024 End: 06-24-2024 Bamboo flowsheet Raffi Lopez DPM Work Phone: [facility] Start: 06-24-2024 End: 06-24-2024 Bamboo flowsheet Raffi Lopez DPM Work Phone: [facility] Start: 06-24-2024 End: 06-24-2024 Patient encounter procedure Raffi Lopez DPM Work Phone: [facility] Comment on above: Diabetes mellitus du e to underlying condition with diabetic polyneuropathy, with long-term current use of insulin ([facility]) (Primary Dx); Pain due to onychomycosis of toenails of both feet; Venous insufficiency Start: 06-24-2024 End: 06-24-2024 ambulatory RAFFI LOPEZ Not Available Start: 05-10-2024 End: 05-10-2024 Bamboo flowsheet Hi Foster MD Work Phone: [facility] Start: 05-10-2024 End: 05-10-2024 Bamboo flowshaider Foster MD Work Phone: [facility] Start: 05-10-2024 End: 05-10-2024 Office outpatient visit 15 minutes Hi Foster MD Work Phone: [facility] Comment on above: Other rosacea (Prima ry Dx); Actinic keratosis; EIC (epidermal inclusion cyst); Lentigines Start: 05-10-2024 End: 05-10-2024 ambulatory HI FOSTER Not Available Start: 05-05-2024 End: 05-05-2024 ambulatory II Justo Cameron Work Phone: [facility] Work Phone: Start: 05-05-2024 End: 05-05-2024 Patient encounter procedure II Justo Cameron Work Phone: [facility] Work Phone: Start: 05-03-2024 End: 05-03-2024 Patient encounter procedure II Justo Cameron Work Phone: [facility] Work Phone: Start: 05-03-2024 End: 05-03-2024 ambulatory II Justo Cameron Work Phone: [facility] Work Phone: Start: 04-22-2024 End: 04-22-2024 ambulatory [facility] Ambulatory Start: 04-22-2024 End: 04-22-2024 Office outpatient visit 40 minutes [facility] Work Phone: [facility] Comment on above: Dizziness; 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; S/P CABG (coronary artery bypass graft); History of PTCA; Essential hypertension; Mixed hyperlipidemia; Sinus bradycardia; Cardiac pacemaker in situ; Arrhythmia, ventricular; High risk medication use; Type 2 diabetes mellitus with diabetic nephropathy, without long-term current use of insulin; Stage 4 chronic kidney disease (Multi); PVD (peripheral vascular disease) ([facility]); BMI 26.0-26.9,adult; Former smoker Start: 04-15-2024 End: 04-15-2024 Bamboo flowsheet Raffi Lopez DPM Work Phone: [facility] Start: 04-15-2024 End: 04-15-2024 Bamboo flowsheet Raffi Lopez DPM Work Phone: [facility] Start: 04-15-2024 End: 04-15-2024 Patient encounter procedure Raffi Lopez DPM Work Phone: [facility] Comment on above: Diabetes mellitus du e to underlying condition with diabetic polyneuropathy, with long-term current use of insulin ([facility]) (Primary Dx); Venous insufficiency; Pain due to onychomycosis of toenails of both feet Start: 04-15-2024 End: 04-15-2024 ambulatory RAFFI LOPEZ Not Available Start: 03-25-2024 End: 03-25-2024 ambulatory II Justo Cameron Work Phone: [facility] Work Phone: Start: 03-25-2024 End: 03-25-2024 Patient encounter procedure II Justo Cameron Work Phone: [facility]-Lab [facility] Work Phone: Start: 03-24-2024 End: 03-24-2024 Office outpatient visit 25 minutes Justo Cameron MD Work Phone: [facility] Comment on above: Acute cystitis witho ut hematuria (Primary Dx); Diabetic nephropathy associated with type 2 diabetes mellitus (HCC) (CMS/HCC); Chronic obstructive pulmonary disease, unspecified ([facility]/HCC) Start: 03-24-2024 End: 03-24-2024 ambulatory JUSTO CAMERON Not Available Start: 03-24-2024 End: 03-24-2024 Bamboo flowsheet Justo Cameron MD Work Phone: [facility] Start: 03-24-2024 End: 03-24-2024 Bamboo flowsheet Justo Cameron MD Work Phone: [facility] Start: 02-05-2024 Non-patient / Non-visit II Ray Cameron Work Phone: [facility] Work Phone: Start: 02-04-2024 Non-patient / Non-visit II Ray Cameron Work Phone: [facility] Work Phone: Start: 02-03-2024 End: 02-10-2024 Evaluation and management of inpatient II Justo Cameron Work Phone: [facility] Work Phone: Start: 01-19-2024 End: 01-19-2024 ambulatory II Justo Cameron Work Phone: [facility] Work Phone: Start: 01-19-2024 End: 01-19-2024 Patient encounter procedure II Justo Cameron Work Phone: [facility]-Pacemaker Check Start: 12-25-2023 End: 12-25-2023 ambulatory RAFFI LOPEZ Not Available Start: 12-09-2023 End: 12-09-2023 ambulatory II Justo Cameron Work Phone: [facility] Work Phone: Start: 12-09-2023 End: 12-09-2023 Patient encounter procedure II Justo Cameron Work Phone: [facility] Work Phone: Start: 11-26-2023 Non-patient / Non-visit II Ray Cameron Work Phone: [facility] Work Phone: Start: 11-26-2023 End: 11-26-2023 Admission to same day surgery center II Justo Cameron Work Phone: [facility]-Interventional Radiology Work Phone: Start: 11-26-2023 End: 11-26-2023 ambulatory Hussein Talavera Facility:[facility] Start: 11-13-2023 Non-patient / Non-visit II Ray Cameron Work Phone: [facility] Work Phone: Start: 11-13-2023 End: 11-13-2023 Admission to same day surgery center II Justo Cameron Work Phone: [facility]-Interventional Radiology Work Phone: Start: 11-13-2023 End: 11-13-2023 ambulatory Hussein Paulieumeshferminrobert Facility:[facility] Start: 11-03-2023 End: 11-03-2023 ambulatory II Justo Cameron Work Phone: [facility] Work Phone: Start: 11-03-2023 End: 11-03-2023 Patient encounter procedure II Justo Cameron Work Phone: [facility] Work Phone: Start: 10-20-2023 End: 10-20-2023 ambulatory II Justo Rakesh Work Phone: [facility] Work Phone: Start: 10-20-2023 End: 10-20-2023 Patient encounter procedure II Justo Cameron Work Phone: [facility]-Pacemaker Check Start: 10-06-2023 End: 10-06-2023 Office outpatient visit 25 minutes Yeison Farah DIRECTOR INDEPENDENT-METAL BOX MAKER Work Phone: [facility] Comment on above: Coronary artery dise ase involving chicken ranch coronary artery of chicken ranch heart without angina pectoris (Primary Dx); Dizziness; Arrhythmia, ventricular; High risk medication use; Mixed hyperlipidemia; Orthostatic hypotension; BMI 36.0-36.9,adult; Type 2 diabetes mellitus with diabetic nephropathy, without long-term current use of insulin ([facility]); Stage 4 chronic kidney disease ([facility]); Cardiac pacemaker in situ; Echocardiogram abnormal Start: 10-06-2023 End: 10-06-2023 ambulatory YEISON Garzon [facility] Ambulatory Start: 10-01-2023 Non-patient / Non-visit II Ray Cameron Work Phone: [facility] Work Phone: Start: 10-01-2023 End: 10-01-2023 Admission to same day surgery center II Justo Rakesh Work Phone: [facility]Surgery Center Main [facility] Start: 10-01-2023 End: 10-01-2023 ambulatory II Justo Cameron Work Phone: [facility] Work Phone: Start: 09-17-2023 End: 09-17-2023 Patient encounter procedure II Justo Cameron Work Phone: [facility] Work Phone: Start: 09-09-2023 End: 09-09-2023 Patient encounter procedure II Justo Cameron Work Phone: [facility] Work Phone: Start: 09-02-2023 Non-patient / Non-visit II Ray Cameron Work Phone: [facility] Work Phone: Start: 09-02-2023 End: 09-02-2023 ambulatory II Justo Rakesh Work Phone: [facility] Work Phone: Start: 09-02-2023 End: 09-02-2023 Patient encounter procedure II Justo Cameron Work Phone: [facility]-Ultrasound Main [facility] Work Phone: Start: 09-02-2023 End: 09-02-2023 ambulatory II Justo Rakesh Work Phone: [facility] Work Phone: Start: 09-02-2023 End: 09-02-2023 Patient encounter procedure II Justo Rakesh Work Phone: [facility]-Respiratory Therapy Work Phone: Start: 08-21-2023 End: 08-21-2023 Assay of hemosiderin, quant Justo Cameron MD Work Phone: [facility] Work Phone: Start: 08-21-2023 End: 08-21-2023 Periodic preventive med est patient 65yrs& older Justo Cameron MD Work Phone: [facility] Comment on above: Routine general medi rosa isela examination at health care facility (Primary Dx); ACP (advance care planning); Type 2 diabetes mellitus with stage 4 chronic kidney disease, without long-term current use of insulin ([facility]); Chronic kidney disease, stage 4 (severe) (N18.4); Peripheral vascular disease, unspecified (I73.9); 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); Atherosclerosis of aorta (I70.0); Gastroesophageal reflux disease, unspecified whether esophagitis present; Acquired hypothyroidism ([facility]) Start: 08-21-2023 Bamboo flowsheet Justo fonseca MD Work Phone: [facility] Start: 08-21-2023 Growheet Justo fonseca MD Work Phone: [facility] Start: 08-14-2023 End: 08-14-2023 ambulatory Aziz Bakhous Other [employer] Other Start: 08-14-2023 Telephone encounter Aziz Bakhous [facility] Start: 08-05-2023 End: 08-05-2023 ambulatory Aziz Bakhous Other [employer] Other Start: 08-05-2023 Office outpatient vi sit 25 minutes Aziz Bakhous [facility] [place] Start: 08-05-2023 End: 08-05-2023 Patient encounter procedure II Justo Cameron Work Phone: [facility]- Start: 07-18-2023 End: 07-18-2023 Patient encounter procedure II Justo Cameron Work Phone: [facility]-Pacemaker Check Start: 02-11-2023 End: 02-11-2023 ambulatory Aziz Bakhous Other [employer] Other Start: 02-11-2023 Office outpatient vi sit 25 minutes Aziz Bakhous [facility] Start: 01-16-[address] Justo Cameron II Facility:[id number] Start: 01-16-2023 End: 01-16-2023 ambulatory II Justo Cameron Work Phone: [facility] Work Phone: Start: 01-16-2023 End: 01-16-2023 Patient encounter procedure II Justo Cameron Work Phone: [facility]-Pacemaker Check Start: 12-31-2022 End: 12-31-2022 ambulatory Hussein Talavera Other [employer] Other Start: 12-31-2022 Patient encounter procedure Hussein Talavera [facility] Vascular Surgery Start: 12-26-2022 End: 12-26-2022 ambulatory II Justo Cameron Work Phone: [facility] Work Phone: Start: 12-26-2022 End: 12-26-2022 Patient encounter procedure II Justo Cameron Work Phone: [facility]-Ultrasound [facility] Start: 12-16-2022 End: 12-16-2022 ambulatory Hussein Talavera Other [employer] Other Start: 12-16-2022 Office outpatient vi sit 25 minutes Hussein Talavera [facility] Vascular Surgery Start: 09-25-2022 Patient encounter procedure Tawanda Murdock MD Work Phone: -[facility] 250 DO Work Phone: Start: 09-10-[address] Justo Cameron II Facility:[id number] Start: 09-06-2022 End: 09-06-2022 ambulatory II Justo Cameron Work Phone: [facility] Work Phone: Start: 09-06-2022 End: 09-06-2022 Patient encounter procedure II Justo Cameron Work Phone: [facility]-Pacemaker Check Start: 09-04-2022 ambulatory [facility] Start: 08-26-2022 End: 08-26-2022 ambulatory [facility] Start: 08-13-2022 Office outpatient vi sit 40 minutes Tawanda Murdock MD Work Phone: [facility]-[place] 250 DO Work Phone: Start: 08-13-[address] Tawanda Murdock II Facility: Start: 08-08-2022 End: 08-08-2022 ambulatory [facility] Start: 08-08-2022 Telephone encounter Sophia Woo [facility] Nephrology Start: 07-19-2022 Message Tawanda tariq MD Work Phone: [facility] 600 DO Work Phone: Start: 07-03-2022 Patient encounter procedure Tawanda Murdock MD Work Phone: [facility] 250 DO Work Phone: Start: 07-02-2022 End: 07-02-2022 ambulatory II Justo Cameron Work Phone: [facility] Work Phone: Start: 07-02-2022 End: 07-02-2022 Patient encounter procedure II Justo Cameron Work Phone: [facility]-CT Scan Main [facility] Start: 06-10-[address] Justo Cameron II Facility:[id number] Start: 06-10-2022 End: 06-10-2022 Patient encounter procedure II Justo Cameron Work Phone: [facility]-Pacemaker Check Start: 04-24-2022 End: 04-24-2022 ambulatory Sophia Woo Other [employer] Other Start: 04-24-2022 Telephone encounter Aziz Bakhous [facility] Start: 04-22-2022 End: 04-22-2022 ambulatory Sophia Woo Other [facility] [employer] Other Start: 04-22-2022 Office outpatient vi sit 25 minutes Sophia Woo [facility] Start: 04-19-2022 Chart Update Tawanda tariq MD Work Phone: [facility]-[place] 250 DO Work Phone: Start: 04-19-2022 End: 04-19-2022 ambulatory Sophia Woo Other [facility] [employer] Other Start: 04-19-2022 Telephone encounter Sophia Woo [facility] Start: 04-18-2022 End: 04-18-2022 ambulatory II Justo Cameron Work Phone: [facility] Work Phone: Start: 04-18-2022 End: 04-18-2022 Patient encounter procedure II Justo Cameron Work Phone: [facility]-Respiratory Therapy Start: 04-11-2022 Patient encounter procedure Tawanda Murdock MD Work Phone: [facility]-[place] 600 DO Work Phone: Start: 04-10-2022 ambulatory Yeison Farah Facility:1 [id number] Start: 03-11-2022 End: 03-12-2022 ambulatory NUVIA FRANCISCO JAVIER Facility: Start: 03-08-2022 Telephone encounter Tawanda zacarias DO Work Phone: [facility] 250 DO Work Phone: Start: 03-08-[address] Justo Cameron II Facility:[id number] Start: 03-08-2022 End: 03-08-2022 Patient encounter procedure II Justo Cameron Work Phone: [facility]-Pacemaker Check Start: 03-06-2022 End: 03-06-2022 ambulatory Nuvia Francisco Javier Other [employer] Other Start: 03-06-2022 Telephone encounter Nuvia Sanchez [facility] Start: 02-20-2022 End: 02-21-[address] JUSTO CAMERON Facility:H1 Start: 02-15-[address] Tawanda Murdock II Facility:[id number] Start: 02-14-[address] Tawanda Murdock II Facility:[id number] Start: 02-13-[address] Justo Cameron II Facility:[id number] Start: 02-12-[address] Justo Cameron II Facility:[id number] Start: 02-11-[address] Justo Cameron II Facility:[id number] Start: 02-10-2022 End: 02-15-2022 Evaluation and management of inpatient II Justo Cameron Work Phone: [facility] Start: 02-10-[address] Tawanda Murdock II Facility:[id number] Start: 02-05-2022 End: 02-05-2022 ambulatory Hussein Talavera Other [employer] Other Start: 02-05-2022 Office outpatient vi sit 25 minutes Hussein Talavera [facility] Start: 01-15-2022 End: 01-15-2022 Departed Referred II Justo Cameron Work Phone: [facility]-Inker Start: 01-15-2022 Office outpatient vi sit 40 minutes Tawanda Pro DO Work Phone: [facility] 250 DO Work Phone: Start: 01-11-2022 Chart Update Yeison Maresd Smi th DIRECTOR INDEPENDENT-METAL BOX MAKER Work Phone: [facility] 250 DO Work Phone: Start: 01-10-2022 End: 01-10-2022 ambulatory Hussein Talavera Other [employer] Other Start: 01-10-2022 Telephone encounter Hussein Talavera [facility] Vascular Surgery Start: 01-10-2022 End: 01-10-2022 Admission to same day surgery center II Justo Cameron Work Phone: [facility]-Interventional Radiology Start: 01-10-2022 End: 01-10-2022 Patient encounter procedure II Justo Cameron Work Phone: [facility]-Pre-Surgical Testing Start: 01-04-2022 Patient encounter procedure Tawanda Murdock MD Work Phone: -[facility] 250 DO Work Phone: Start: 12-31-2021 End: 12-31-2021 ambulatory Hussein Talavera Other [employer] Other Start: 12-31-2021 Office outpatient vi sit 25 minutes Hussein Talavera [facility] Vascular Surgery Start: 12-19-2021 End: 12-19-2021 ambulatory Hussein Talavera Other [employer] Other Start: 12-19-2021 Telephone encounter Hussein Talavera [facility] Vascular Surgery Start: 12-03-2021 End: 12-03-2021 Patient encounter procedure II Justo Cameron Work Phone: [facility]-Pacemaker Check Start: 11-20-2021 End: 11-20-2021 Patient encounter procedure II Justo Cameron Work Phone: [facility]-Ultrasound [facility] Start: 09-03-2021 End: 09-03-2021 Patient encounter procedure II Justo Cameron Work Phone: [facility]-Pacemaker Check Start: 08-21-2021 End: 08-21-2021 ambulatory Sameera Jolley Other [employer] Other Start: 08-21-2021 Office outpatient vi sit 15 minutes Sameera Jolley [facility] Vascular Surgery Start: 05-14-2021 Office outpatient vi sit 25 minutes Yeison Farah DIRECTOR INDEPENDENT-METAL BOX MAKER Work Phone: [facility] 600 DO Work Phone: Start: 05-14-2021 Patient encounter procedure Yeison Farah DIRECTOR INDEPENDENT-METAL BOX MAKER Work Phone: [facility] 250 DO Work Phone: Start: 04-26-2021 [facility], Provider: Tawanda Pro, Status: Pen, Time: 1:00 PM Tawanda Pro DO Work Phone: [facility] 250 DO Work Phone: Start: 04-24-2021 Chart Update Tawanda tariq DO Work Phone: [facility] 250 DO Work Phone: Start: 04-18-2021 Telephone encounter Tawanda Burns MD Work Phone: [facility] 250 DO Work Phone: Start: 11-13-2017 End: 11-14-2017 Ambulatory CAMERON BOJORQUEZ Facility:[facility] Start: 11-03-2017 End: 11-04-2017 Ambulatory DEFAULT PHYSICIAN Facility:[facility] Start: 04-11-2017 End: 04-12-2017 Ambulatory JUSTO GIBBONS Facility:[facility] Start: 03-10-2017 End: 03-11-2017 Ambulatory DEFAULT PHYSICIAN Facility:[facility] Procedures Date Procedure Procedure Detail Performing Clinician Start: 12-16-2024 Hemoglobin glycosyla mario a1c Justo Cameron MD Work Phone: Start: 10-20-2024 Plain chest X-ray Familia Cameron II Work Phone: Start: 07-21-2024 ALL RENAL FUNCTION PANEL Generic External Data Provider Start: 07-21-2024 ALL URIC ACID Generic E xternal Data Provider Start: 07-21-2024 [facility] MICROALB CREAT R ATIO RANDOM Generic External Data Provider Start: 07-21-2024 [facility] URINE T PROTEIN CREAT RATIO Generic External Data Provider Start: 05-10-2024 CRYOTHERAPY SKIN LESION Hi Foster MD Work Phone: Start: 04-22-2024 Ecg routine ecg w/le ast 12 lds w/i&r Tawanda Pro DO Work Phone: Start: 03-24-2024 Hemoglobin glycosyla mario a1c Justo Cameron MD Work Phone: Start: 02-04-2024 Antibody screen Sameera Jolley Comment on above: Result Comment: PERF ORMED BY: [facility] [address] [place] [address] PATHOLOGIST JEWELRY CASTING MODEL MAKER APPRENTICE MO PALOMO M.D. Start: 02-04-2024 Plain X-ray of left hip II Justo Cameron Work Phone: Start: 02-04-2024 Partial hip replacem ent by prosthesis II Justo Rakesh Work Phone: Start: 02-04-2024 Plain X-ray of left femur II Justo Cameron Work Phone: Start: 12-09-2023 Ankle brachial press ure index II Justo Rakesh Work Phone: Start: 11-26-2023 IR Fistulogram/TLA S tent (Left) II Justo Rakesh Work Phone: Start: 11-13-2023 IR Fistulogram/TLA S tent (Left) II Justo Rakesh Work Phone: Start: 10-06-2023 FOLLOW UP IN CARDIOLOGY YEISON FARAH Start: 10-06-2023 Ecg routine ecg w/le ast 12 lds w/i&r Yeison Farah DIRECTOR INDEPENDENT-METAL BOX MAKER Work Phone: Start: 10-01-2023 Arteriovenous fistulization II Justo Rakesh Work Phone: Start: 09-02-2023 US angiography II Familia Cameron Work Phone: Start: 09-02-2023 Plain chest X-ray II Richard Cameron Work Phone: Start: 08-21-2023 Hemoglobin glycosyla mario a1c Justo Cameron MD Work Phone: Start: 05-30-2023 History of coronary artery bypass grafting S/P CABG (coronary artery bypass graft) Justo Cameron MD Work Phone: Start: 05-30-2023 History of percutane ous transluminal coronary angioplasty History of PTCA Justo Cameron MD Work Phone: Start: 07-02-2022 CT of chest without contrast II Justo Cameron Work Phone: Start: 04-18-2022 Plain chest X-ray II Richard flaco Cameron Work Phone: Start: 02-12-2022 CT of chest without contrast II Justo Cameron Work Phone: Start: 02-10-2022 Plain chest X-ray II Richard Cameron Work Phone: Start: 02-10-2022 Ultrasonography of bilateral kidneys II Justo Cameron Work Phone: Start: 01-10-2022 SARS Antigen (LFIA) II Justo Cameron Work Phone: Start: 01-10-2022 IR Angiogram Left Le g (Bilateral) II Justo Cameron Work Phone: Start: 01-10-2022 Doppler ultrasonogra phy of bilateral carotid arteries II Justo Cameron Work Phone: Start: 11-20-2021 Ankle brachial press ure index II Justo Cameorn Work Phone: Angioplasty of blood vessel Yeison Farah DIRECTOR INDEPENDENT-METAL BOX MAKER Work Phone: Cardiac catheterization Prashanth Farah DIRECTOR INDEPENDENT-METAL BOX MAKER Work Phone: Coronary artery bypa ss graft Yeison Farah DIRECTOR INDEPENDENT-METAL BOX MAKER Work Phone: History of coronary artery bypass grafting S/P CABG (coronary artery bypass graft) Yeison Farah DIRECTOR INDEPENDENT-METAL BOX MAKER Work Phone: History of coronary artery bypass grafting S/P CABG (coronary artery bypass graft) Tawanda Pro DO Work Phone: History of percutane ous transluminal coronary angioplasty History of PTCA Yeison Farah DIRECTOR INDEPENDENT-METAL BOX MAKER Work Phone: History of percutane ous transluminal coronary angioplasty History of PTCA Tawanda Pro DO Work Phone: Insertion of pacemak er pulse generator Yeison Farah DIRECTOR INDEPENDENT-METAL BOX MAKER Work Phone: Introduction of cath eter into carotid artery Yeison Farah DIRECTOR INDEPENDENT-METAL BOX MAKER Work Phone: Percutaneous translu michelle coronary angioplasty Yeison Farah DIRECTOR INDEP[employer]ENT-METAL BOX MAKER Work Phone: Comment on above: femoral artery; SARS-CoV-2, Influenz a & RSV (PCR) II Justo Cameron Work Phone: Total colonoscopy Yeison Farah DIRECTOR INDEPENDENT-METAL BOX MAKER Work Phone: Plan of Treatment Date Care Activity Detail Author Start: 12-16-2025 Medicare Annual Wellness (AWV) Medicare Annual Wellness (AWV) [facility] Start: 07-21-2025 Urine screening for protein Diabetes: Urine Protein Screening [facility] Start: 05-19-2025 End: 05-19-2025 Patient encounter procedure 05/19/2025 10:45 AM EST Office Visit [facility] [address] [place] [address] Hi Foster MD [address] [place] [address] [facility] Start: 03-18-2025 Hemoglobin A1c measurement Diabetes: Hemoglobin A1C [facility] Start: 03-14-2025 Influenza vaccination Influenza Vaccine (Season Ended) [facility] Start: 02-03-[address] [facility] Start: 02-03-2025 End: 02-03-2025 Patient encounter procedure 02/03/2025 11:40 AM EDT Office Visit [facility] [address] [place] [address] Raffi Lopez DPM [address] [facility] [address] [place] [address] [facility] Start: 01-10-2025 End: 01-10-2025 Patient encounter procedure 01/10/2025 9:30 AM EDT Office Visit [facility] [address] [place] [id number] Justo Cameron MD [address] [place] [address] [facility] Start: 12-22-2024 End: 12-22-2024 Patient encounter procedure 12/22/2024 11:20 AM EDT Office Visit [facility] [address] [facility] [address] [place] [phone] Tawanda Pro DO [address] [facility] [address] [place] [address] [facility] Start: 12-16-2024 End: 12-16-2025 Comprehensive metabolic 2000 panel - Serum or Plasma Comprehensive metabolic panel Lab Routine Type 2 diabetes mellitus with stage 4 chronic kidney disease, without long-term current use of insulin (CMS/HCC) Chronic kidney disease, stage 4 (severe) (CMS/HCC) Expected: 12/16/2024 (Approximate), Expires: 12/16/2025 [facility] Work Phone: Comment on above: Expected: 12/16/2024 (Approximate), Expi res: 12/16/2025 Start: 12-16-2024 End: 12-16-2025 Lipid 1996 panel - Serum or Plasma Lipid panel Lab Routine Type 2 diabetes mellitus with stage 4 chronic kidney disease, without long-term current use of insulin (CMS/HCC) Mixed hyperlipidemia (CMS/HCC) Expected: 12/16/2024 (Approximate), Expires: 12/16/2025 [facility] Comment on above: Expected: 12/16/2024 (Approximate), Expi res: 12/16/2025 Start: 12-16-2024 End: 12-16-2025 Thyrotropin [Units/volume] in Serum or Plasma TSH Lab Routine Type 2 diabetes mellitus with stage 4 chronic kidney disease, without long-term current use of insulin (CMS/HCC) Acquired hypothyroidism (CMS/HCC) Expected: 12/16/2024 (Approximate), Expires: 12/16/2025 [facility] Comment on above: Expected: 12/16/2024 (Approximate), Expi res: 12/16/2025 Start: 12-16-2024 End: 12-16-2025 Thyroxine (T4) free [Mass/volume] in Serum or Plasma T4, free Lab Routine Type 2 diabetes mellitus with stage 4 chronic kidney disease, without long-term current use of insulin (CMS/HCC) Acquired hypothyroidism (CMS/HCC) Expected: 12/16/2024 (Approximate), Expires: 12/16/2025 [facility] Comment on above: Expected: 12/16/2024 (Approximate), Expi res: 12/16/2025 Start: 12-16-2024 End: 12-16-2025 XR Lumbar spine 2 or 3 Views XR lumbar spine 2 or 3 views Imaging Routine 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 Expected: 12/16/2024, Expires: 12/16/2025 [facility] Comment on above: Expected: 12/16/2024, Expires: Start: 12-16-2024 End: 12-16-2024 Patient encounter procedure 12/16/2024 10:00 AM EDT Office Visit [facility] [address] [facility] [address] [place] [phone] Justo Cameron MD 112 [facility] [address] [place] [address] [facility] Start: 11-25-2024 End: 11-25-2024 Patient encounter procedure 11/25/2024 11:30 AM EDT Office Visit [facility] [address] [facility] [address] [place] [phone] Raffi Lopez DPM [address] [facility] [address] [place] [address] Diabetes mellitus due to underlying condition with diabetic polyneuropathy, with long-term current use of insulin (CMS/HCC) (Primary Dx); Pain due to onychomycosis of toenails of both feet; Venous insufficiency; Skin fissure [facility] Comment on above: Diabetes mellitus due to underlying cond ition with diabetic polyneuropathy, with long-term current use of insulin (CMS/HCC) (Primary Dx); Pain due to onychomycosis of toenails of both feet; Venous insufficiency; Skin fissure Start: 10-21-2024 End: 04-22-2025 Complete Pulmonary Function Test (Spirometry/DLCO/Lung Volumes) Complete Pulmonary Function Test (Spirometry/DLCO/Lung Volumes) PFT Routine Arrhythmia, ventricular High risk medication use Expected: 10/21/2024 (Approximate), Expires: 04/22/2025 [facility] Work Phone: Comment on above: Expected: 10/21/2024 (Approximate), Expi res: 04/22/2025 Start: 10-21-2024 End: 04-22-2025 XR Chest 2 Views XR chest 2 views Imaging Routine Arrhythmia, ventricular High risk medication use Expected: 10/21/2024, Expires: 04/22/2025 [facility] Work Phone: Comment on above: Expected: 10/21/2024, Expires: Start: 09-09-2024 End: 09-09-2024 Patient encounter procedure [facility] Comment on above: Diabetes mellitus due to underlying cond ition with diabetic polyneuropathy, with long-term current use of insulin (CMS/HCC) (Primary Dx); Pain due to onychomycosis of toenails of both feet; Venous insufficiency Start: 09-01-2024 End: 09-01-2024 Patient encounter procedure 09/01/2024 10:30 AM EST Office Visit [facility] [address] [facility] [address] [place] [address] Justo Cameron MD 112 [facility] [address] [place] [address] [facility] Start: 08-21-2024 Medicare Annual Wellness (AWV) Medicare Annual Wellness (AWV) [facility] Start: 08-09-2024 End: 08-09-2024 ambulatory 08/09/2024 11:00 AM EST Treatment [facility] [address] [facility] [address] [place] [address] Luna Espinal, PT [facility] Start: 07-29-2024 End: 07-29-2024 ambulatory 07/29/2024 1:30 PM EST Treatment [facility] [address] [facility] [address] [place] [address] Luna Espinal, PT [facility] Start: 07-23-2024 End: 04-22-2025 Aspartate aminotransferase [Enzymatic activity/volume] in Serum or Plasma by With P-5'-P Aspartate Aminotransferase Lab Routine Arrhythmia, ventricular High risk medication use Expected: 07/23/2024 (Approximate), Expires: 04/22/2025 [facility] Service Area Work Phone: Comment on above: Expected: 07/23/2024 (Approximate), Expi res: 04/22/2025 Start: 07-21-2024 End: 07-21-2024 Patient encounter procedure 07/21/2024 11:00 AM EST Office Visit [facility] [address] [facility] [address] [place] [address] Justo Cameron MD [address] [facility] [address] [place] [address] Arrived [facility] Comment on above: Arrived Start: 06-24-2024 End: 06-24-2024 Patient encounter procedure [facility] Comment on above: Diabetes mellitus due to underlying cond ition with diabetic polyneuropathy, with long-term current use of insulin ([facility]) (Primary Dx); Pain due to onychomycosis of toenails of both feet; Venous insufficiency Start: 06-23-2024 Hemoglobin A1c measurement Diabetes: Hemoglobin A1C [facility] Start: 05-10-2024 End: 05-10-2024 Patient encounter procedure [facility] Comment on above: Arrived Start: 05-06-2024 End: 05-06-2024 Patient encounter procedure 05/06/2024 10:00 AM EDT Office Visit [facility] [address] [place] [phone] Hi Foster MD [address] [place] [address] [facility] Start: 05-03-2024 US AV fistula [facility] Start: 04-22-2024 End: 04-22-2025 Basic metabolic 2000 panel - Serum or Plasma Basic Metabolic Panel Lab Routine Arrhythmia, ventricular High risk medication use Expected: 04/22/2024 (Approximate), Expires: 04/22/2025 [facility] Work Phone: Comment on above: Expected: 04/22/2024 (Approximate), Expi res: 04/22/2025 Start: 04-22-2024 End: 04-22-2025 Thyrotropin [Units/volume] in Serum or Plasma Thyroid Stimulating Hormone Lab Routine Arrhythmia, ventricular High risk medication use Expected: 04/22/2024 (Approximate), Expires: 04/22/2025 [facility] Work Phone: Comment on above: Expected: 04/22/2024 (Approximate), Expi res: 04/22/2025 Start: 04-15-2024 End: 04-15-2024 Patient encounter procedure [facility] Comment on above: Diabetes mellitus due to underlying cond ition with diabetic polyneuropathy, with long-term current use of insulin ([facility]) (Primary Dx); Onychomycosis; Toe pain, left; Toe pain, right; Venous insufficiency Start: 04-14-2024 End: 04-14-2024 Patient encounter procedure 04/14/2024 9:00 AM EDT Office Visit [facility] [address] [place] [phone] Tawanda Pro DO [address] [place] [address] [facility] Start: 03-14-2024 COVID-19 Vaccine ( season) COVID-19 Vaccine ( season) [facility] Start: 03-14-2024 Influenza vaccination Influenza Vaccine (#1) [facility] Start: 02-10-2024 [facility] Start: 02-05-2024 Referral to rehabilitation physician [facility] Start: 02-03-2024 Consultation [facility] Start: 02-03-2024 Hospital admission [facility] Start: 02-03-2024 Replacement of Left Hip Joint with Synthetic Substitute, Open Approach Replacement of Left Hip Joint with Synthetic Substitute, Open Approach [facility] Start: 12-09-2023 Ankle brachial pressure index [facility] Start: 11-26-2023 [facility] Start: 11-19-2023 Hemoglobin A1c measurement Diabetes: Hemoglobin A1C [facility] Start: 11-13-2023 [facility] Start: 10-16-2023 End: 10-16-2023 Patient encounter procedure 10/16/2023 3:40 PM EDT Office Visit [facility] [address] [facility] [address] [place] [phone] Raffi Lopez DPM [address] [facility] 5 [place] [address] [facility] Start: 10-02-2023 [facility] Start: 10-01-2023 [facility] Start: 10-01-2023 [facility] Start: 09-02-2023 US angiography US map hemodial access BIJAN [facility] Start: 09-02-2023 US Unspecified body region [facility] Start: 08-21-2023 End: 08-21-2023 Patient encounter procedure 08/21/2023 3:00 PM EST Office Visit [facility] [address] [facility] [address] [place] [phone] Justo Cameron MD [address] [facility] [address] [place], [place] [id number] Arrived [facility] Comment on above: Arrived Start: 03-14-2023 COVID-19 Vaccine ( season) COVID-19 Vaccine ( season) [facility] Start: 03-14-2023 Influenza vaccination Influenza Vaccine (#1) [facility] Start: 03-04-2023 FUV, Provider: Tawanda Murdock, Status: Pen, Time: 9:10 AM FUV, Provider: Tawanda Murdock, Status: Pen, Time: 9:10 AM -[facility] [address] DO Work Phone: Start: 02-20-2023 Urine screening for protein Diabetes: Urine Protein Screening [facility] Start: 02-11-[address] [facility] Start: 12-26-2022 Ankle brachial pressure index [facility] Start: 12-26-2022 Duplex scan of lower limb arteries US arterial duplex LE BI [facility] Start: 12-26-2022 US Lower extremity artery - bilateral [facility] Start: 08-13-2022 FUV, Provider: Tawanda Murdock, Status: Pen, Time: 9:20 AM FUV, Provider: Tawanda Murdock, Status: Pen, Time: 9:20 AM -[facility] [address] DO Work Phone: Start: 04-10-2022 FUV, Provider: Yeison Conley, Status: Pen, Time: 9:30 AM FUV, Provider: Yeison Conley, Status: Pen, Time: 9:30 AM -[facility] [address] DO Work Phone: Start: 03-08-2022 End: 03-08-2022 Patient encounter procedure Departed Clinical [facility]Pac[facility] Start: 02-25-2022 FUV, Provider: Yeison Conley, Status: Pen, Time: 8:30 AM FUV, Provider: Yeison Conley, Status: Pen, Time: 8:30 AM [facility] [address] DO Work Phone: Start: 02-15-2022 [facility] Start: 02-14-2022 Administration of prophylactic treatment [facility] Start: 02-10-2022 Referral to straight edger [place] Start: 02-10-2022 Hospital admission [facility] Start: 01-15-2022 SURGNONUH, Provider: Tawanda Pro, Status: Pen, Time: 3:00 PM SURGNONUH, Provider: Tawanda Pro, Status: Pen, Time: 3:00 PM -[facility] [address] DO Work Phone: Start: 01-15-2022 Catheterization of left heart CL *Left Heart Cath (LHC) (Not Applicable) [facility] Start: 01-15-2022 FUV, Provider: Tawanda Pro, Status: Pen, Time: 11:10 AM FUV, Provider: Tawanda Pro, Status: Pen, Time: 11:10 AM -[facility] [address] DO Work Phone: Start: 01-10-2022 [facility] Work Phone: Start: 11-20-2021 Ankle brachial pressure index US ankle/arm indices [facility] Start: 10-16-2021 FUV, Provider: Tawanda Murdock, Status: Pen, Time: 10:45 AM FUV, Provider: Tawanda Murdock, Status: Pen, Time: 10:45 AM -[facility] [address] DO Work Phone: Start: 09-12-2021 Hemoglobin A1c measurement Diabetes: Hemoglobin A1C [facility] Start: 06-01-2021 FUV, Provider: Tawanda Pro, Status: Pen, Time: 10:00 AM FUV, Provider: Tawanda Pro, Status: Pen, Time: 10:00 AM -[facility] [address] DO Work Phone: Start: 04-26-2021 SURGNONUH, Provider: Tawanda Pro, Status: Pen, Time: 1:00 PM SURGNONUH, Provider: Tawanda Pro, Status: Pen, Time: 1:00 PM -[facility] [address] DO Work Phone: Start: 07-24-2019 Glaucoma screening Diabetes: Retinopathy Screening [facility] Start: 2001 RSV patients and/or patients aged 60+ years (1 - 1-dose 60+ series) RSV patients and/or patients aged 60+ years (1 - 1-dose 60+ series) [facility] Start: 1991 Zoster Vaccines (1 of 2) Zoster Vaccines (1 of 2) [facility] Start: 1963 DTaP/Tdap/Td Vaccines (1 - Tdap) DTaP/Tdap/Td Vaccines (1 - Tdap) [facility] Start: 01-25-1960 Pneumococcal Vaccine: 65+ Years (1 of 2 - PCV) Pneumococcal Vaccine: 65+ Years (1 of 2 - PCV) [facility] Start: 01-25-1960 Urine screening for protein Diabetes: Urine Protein Screening [facility] Start: 1951 Diabetic foot examination Diabetes: Foot Exam [facility] Start: 1951 Glaucoma screening Diabetes: Retinopathy Screening [facility] Start: 1947 Pneumococcal Vaccine: 65+ Years (1 - PCV) Pneumococcal Vaccine: 65+ Years (1 - PCV) [facility] Start: 1947 Pneumococcal Vaccine: 65+ Years (1 of 2 - PCV) Pneumococcal Vaccine: 65+ Years (1 of 2 - PCV) [facility] Start: 1941 Creatinine measurement Creatinine Level [facility] Start: 1941 Hemoglobin A1c measurement Diabetes: Hemoglobin A1C [facility] Start: 1941 Lipid panel Lipid Panel [facility] Start: 1941 Medicare Annual Wellness (AWV) Medicare Annual Wellness (AWV) [facility] Start: 1941 Medicare Annual Wellness Visit Medicare Annual Wellness Visit (AWV) [facility] Start: 1941 Potassium measurement Potassium Level [facility] Start: 1941 Thyroid stimulating hormone measurement TSH Level [facility] Blood chemistry [facility] Work Phone: Blood chemistry [facility] ECG 12 Lead ECG 12 Lead ECG Routine High risk medication use 10/06/2023 9:00 AM EDT [facility] Service Area Work Phone: Patient Education [facility] Work Phone: Patient referral [facility] Work Phone: Renal function 2000 panel - Serum or Plasma [facility] Renal function 2000 panel - Serum or Plasma [facility] Renal function 2000 panel - Serum or Plasma [facility] US AV fistula [facility] XR Chest 2 Views [facility] Work Phone: XR Hip - left 2 Views [facility] Immunizations Immunization Date Immunization Notes Care Provider Jahaira tony 06-05-2021 COVID-19 mRNA-1273 (Moderna) II Justo Cameron Work Phone: [facility] 11-30-2020 Moderna COVID-19 Vac cine 100 MCG/0.5ML Intramuscular Suspension Yeisonjimmy Chung Farah DIRECTOR [employer] Work Phone: [facility] Comment on above: Series: 11-01-2020 Moderna COVID-19 Vac cine 100 MCG/0.5ML Intramuscular Suspension Yeison Chung Farah DIRECTOR [employer] Work Phone: [facility] Comment on above: Series: Payers Date Payer Category Payer Medicare [id number] 2023 Self-pay [id number] 2022 Medicare [id number] 2022 Medicare (Managed Care) 1.2. [id number] 2022 Private Health Insurance [id number] 1959 Private Health Insurance [facility] [id number] 1941 Unknown [id number] 2.16.84 0.1.662443.3.579.2.593 1941 Unknown [id number] 2.16.84 0.1.650043.3.579.2.593 1941 Unknown [id number] 2.16. 840.1.624790.3.579.2.356 1941 Unknown [id number] 2.16. 840.1.173360.3.579.2. 1941 Unknown [id number] 2.16. 840.1.615091.3.579.2. 1941 Unknown [id number] 2.16. 840.1.727826.3.579.2.356 1941 Unknown [id number] 2.16. 840.1.827293.3.579.2.356 1941 Unknown [id number] 2.16. 840.1.617007.3.579.2.356 1941 Unknown [id number] 2.16. 840.1.216517.3.579.2. 1941 Unknown [id number] 2.16. 840.1.575096.3.579.2.356 1941 Unknown [id number] 2.16. 840.1.400682.3.579.2.356 1941 Unknown [id number] 2.16. 840.1.068123.3.579.2.356 1941 Unknown [id number] 2.16. 840.1.104087.3.579.2. 1941 Unknown [id number] 2.16. 840.1.965975.3.579.2.356 1941 Unknown [id number] 2.16. 840.1.300728.3.579.2.356 1941 Unknown [id number] 2.16. 840.1.704841.3.579.2.1244 1941 Unknown [id number] 2.16.8 40.1.804908.3.579.2.1244 1941 Unknown [id number] 2.16.8 40.1.330305.3.579.2.1259 1941 Unknown [id number] 2.16.84 0.1.068004.3.579.2.1259 1941 Unknown [id number] 2.16.84 0.1.479577.3.579.2.1259 1941 Unknown [id number] 2.16.84 0.1.518586.3.579.2.1259 1941 Unknown [id number] 2.16.84 0.1.917767.3.579.2.1259 1941 Unknown [id number] 2.16.84 0.1.267898.3.579.2.1259 1941 Unknown [id number] 2.16.84 0.1.071856.3.579.2.1259 1941 Unknown [id number] 2.16.84 0.1.819565.3.579.2.1259 1941 Unknown [id number] 2.16.84 0.1.262617.3.579.2.1259 1941 Unknown [id number] 2.16.84 0.1.757680.3.579.2.125 1941 Unknown [id number] 2.16.84 0.1.704587.3.579.2.1259 Medicare [id number] 2.1 6.840.1.314655.19 Private Health Insurance [id number] Unknown Unknown MMO [id number] Unknown [id number] 2.16.8 40.1.809400.3.579.2.531 Unknown [id number] 2.16.8 40.1.398367.3.579.2.531 Unknown [id number] 2.16.8 40.1.862116.3.579.2.531 Unknown [id number] 2.16.8 40.1.680504.3.579.2.531 Unknown [id number] 2.16.8 40.1.339285.3.579.2.531 Unknown [id number] 2.16.8 40.1.703562.3.579.2.531 Unknown [id number] 2.16.8 40.1.094987.3.579.2.531 Unknown [id number] 2.16.8 40.1.932815.3.579.2.531 Social History Date Type Detail Facility Start: 08-07-2023 End: 12-16-2024 Alcohol use Alcohol use [place] [address] DO Work Phone: Comment on above: ONE BEER DAILY; 3-4 CUPS OF COFFEE D AILY; Start: 04-26-2021 End: 12-25-2023 Tobacco smoking status [facility] Ex-smoker (finding) [facility] Start: 1940 Sex Assigned At Male F [facility] Start: 08-07-2023 End: 12-16-2024 Sex Assigned At [facility] [place] Other End: 07-14-1982 History of tobacco use Current smoker [facility] End: 07-14-1982 History of tobacco use Cigarette Smoker [facility] History of tobacco use Passive smoker [facility] Start: 01-02-2023 End: 12-25-2023 Tobacco use and exposure Smokeless tobacco non-user [facility] Start: 08-07-2023 End: 12-16-2024 Alcohol intake Current drinker of alcohol (finding) [facility] Start: 02-07-2023 Alcohol Comment caffeine: 3-4 cups per day [facility] Start: 1940 Sex Assigned At Not on file N [facility] Start: 10-06-2023 End: 04-22-2024 Alcohol intake Lifetime non-drinker (finding) [facility] Work Phone: Start: 09-26-2023 End: 04-22-2024 Exposure to SARS-CoV-2 (event) Not sure [facility] Start: 07-28-2024 End: 10-21-2024 Sex Male (finding) [facility] Medical Equipment Procedure Code Equipment Code Equipment Origin al Text Equipment Identifier Dates Arthroplasty, hip, bipolar Metallic femoral head prosthesis [id number] FDA Start: 02-04-2024 Arthroplasty, hip, bipolar Coated hip femur prosthesis, modular ()[id number] FDA Start: 02-04-2024 use to test BLOO D SUGAR DAILY 50 [id number] Start: 08-13-2023 1 each in the morning. [id number] Start: 07-10-2023 1 each by Other route Daily [id number] Start: 04-01-2024 1 each by Other route Daily [id number] Start: 10-07-2023 1 each Daily [id number] Start: 11-30-2024 Goals Date Patient Goal Desired Activity /State Functional Status Date Assessment Result Facility 12-16-2024 Patient Health Questionnaire 2 item (PHQ-2) [Reported] [facility] 02-10-2024 Functional status Patient is Pro gressing Toward Baseline [facility] Work Phone: 02-15-2022 Functional status Patient at Baseline [facility] Work Phone: Mental Status Date Assessment Result Facility 02-10-2024 Cognitive function Cognitive Sta tus Patient is Progressing Toward Baseline [facility] Work Phone: 02-15-2022 Cognitive function Cognitive Sta tus Patient at Baseline [facility] Work Phone: Clinical Notes 08-21-2021 to 12-17-2024 Telephone Encounter - Liz Cuenca - 12/17/2024 11:19 AM EDTTelephone Encounter - Liz Cuenca - 12/17/2024 11:19 AM SADIQTJusto Cameron MD - 12/16/2024 10:00 AM EDT Note Date & Type Note Facility 12-17-2024 Telephone encount er Note She called re: PT Marisol and said she was going to contact ref provider in request of sending referral for Home Health; she notes he is to weak to get out of house. I told her not to hesitate if we may be needed. [facility] 12-17-2024 Miscellaneous Notes Formattin g of this note might be different from the original. She called re: ASHA Damon and said she was going to contact ref provider in request of sending referral for Home Health; she notes he is to weak to get out of house. I told her not to hesitate if we may be needed. documented in this encounter [facility] 12-16-2024 History of Presen t illness Narrative Images from the original note were not [...] TABLET BY MOUTH IN THE MORNING TAKE BEFORE A MEAL 90 tablet 3 metoprolol succinate XL (Toprol-XL) 50 MG 24 hr tablet Take 50 mg by mouth Daily Do not crush or chew. omeprazole (PriLOSEC) [address] capsule Take one capsule daily 100 capsule 3 No current facility-administered medications for this visit. Review of Systems List of current healthcare providers: Patient Care Team: uJsto Cameron MD as PCP - General (Internal [...] Do you have a medical power of regulatory attorney?: No Objective : BP 128/68 Pulse 60 Ht 5' 11 Wt 179 lb SpO2 98% BMI 24.97 kg/m No results found. Physical Exam Constitutional: General: [...] a living will and durable power of regulatory attorney for healthcare. We discussed telling ibarra people [...] disease, without long-term current use of insulin ([facility]) - POCT Glycated hemoglobin, total - Comprehensive metabolic panel; Future - Lipid panel; Future - TSH; Future - T4, free; Future Chronic kidney disease, stage 4 (severe) ([facility]) - Comprehensive metabolic panel; Future Weight loss 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 - XR lumbar spine 2 or 3 views; Future - Ambulatory referral to Physical Therapy; Future Mixed hyperlipidemia ([facility]) - Lipid panel; Future Acquired hypothyroidism ([facility]) - TSH; Future - T4, free; Future Primary insomnia - doxepin (Silenor) 3 MG tablet; Take 1 tablet (3 mg) by mouth at bedtime Follow up in about 3 weeks (around 01/06/2025) for Test/Lab Review, F/U med changes. No orders of the defined types were placed in this encounter. Electronically signed by Justo Cameron MD on December 16, 2024 documented in this encounter [facility] 11-25-2024 History of Presen t illness Narrative Patient: Apolinar Norman : 1940 PCP: Justo Cameron MD SUBJECTIVE This is a 84 y.o. male that presents today with a CC of elongated, thick nails. Pt states nails have been elongated and thick for many years and cause pain with ambulation in shoegear. Pt has tried previous treatment with minimal relief. Pt presents today for nail care and treatment. Patient is DM2 Patient has positive history of venous stasis Patient also presents today for follow-up of dry skin and fissures to feet and has intermittently been using prescribed or recommended [id number] cream with some improvement. 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 CAD (coronary artery disease) (CMS/HCC) Carotid artery disease (CMS/HCC) CKD (chronic kidney disease) stage 3 COPD (chronic obstructive pulmonary disease) (CMS/HCC) DDD (degenerative disc disease), cervical Diabetes (CMS/HCC) Hiatal hernia Hip fracture (CMS/HCC) 02/03/2024 Left Hx of cardiac pacemaker Hypertension (CMS/HCC) Hypothyroid (CMS/HCC) Lesion of hard palate OM (onychomycosis) Pacemaker PVD (peripheral vascular disease) (CMS/HCC) Sinus problem Squamous cell skin cancer Medications: Current Outpatient Medications: amiodarone (Pacerone) 200 MG tablet, Take 1 tablet by mouth in the morning., Disp: , Rfl: aspirin 81 MG EC tablet, Take 81 mg by mouth in the morning., Disp: , Rfl: atorvastatin (Lipitor) 80 MG tablet, Take 1 tablet (80 mg) by mouth Daily, Disp: 100 tablet, Rfl: 3 clopidogrel (Plavix) 75 MG tablet, Take 1 tablet (75 mg) by mouth Daily, Disp: 100 tablet, Rfl: 3 furosemide (Lasix) 40 MG tablet, Take 40 mg by mouth in the morning and 40 mg before bedtime., Disp: , Rfl: glucose blood (True Metrix Blood Glucose Test) test strip, 1 each by Other route Daily, Disp: 100 each, Rfl: 3 glyBURIDE (Diabeta) 1.25 MG tablet, Take 1 tablet (1.25 mg) by mouth in the morning. Take with meals., Disp: 100 tablet, Rfl: 3 Lancets Ultra Thin misc, 1 each in the morning., Disp: 100 each, Rfl: 2 levothyroxine (Synthroid, Levoxyl) 100 MCG tablet, Take 1 tablet (100 mcg) by mouth in the morning. Take before meals., Disp: 100 tablet, Rfl: 3 metoprolol succinate XL (Toprol-XL) 50 MG 24 hr tablet, Take 50 mg by mouth Daily Do not crush or chew., Disp: , Rfl: omeprazole (PriLOSEC) [address] capsule, Take one capsule daily, Disp: 100 capsule, Rfl: 3 traMADol (Ultram) 50 MG tablet, Take 1-2 tablets (50-100 mg) by mouth every 8 (eight) hours if needed for severe pain, Disp: 60 tablet, Rfl: 1 Social History: Social History Socioeconomic History Marital status: Spouse name: Not on file Number of children: Not on file Years of education: Not on file Highest education level: Not on file Occupational History Not on file Tobacco Use Smoking status: Former Current packs/day: 0.00 Types: Cigarettes Quit date: 1982 Years since quittin.3 Passive exposure: Past Smokeless tobacco: Never Vaping Use Vaping status: Unknown Substance and Sexual Activity Alcohol use: Yes Alcohol/week: 4.0 standard drinks of alcohol Types: 4 Standard drinks or equivalent per week Comment: caffeine: 3-4 cups per day Drug use: Never Sexual activity: Defer Other Topics Concern Not on file Social History Narrative Not on file Social Drivers of Health Financial Resource Strain: Low Risk (08/08/2022) Received from [facility] Overall Financial Resource Strain (CARDIA) Difficulty of Paying Living Expenses: Not very hard Food Insecurity: Not on file Transportation Needs: No Transportation Needs (08/08/2022) Received from [facility] PRAPARE - Transportation Lack of Transportation (Medical): No Lack of Transportation (Non-Medical): No Physical Activity: Not on file Stress: No Stress Concern Present (08/08/2022) Received from [facility] [place] - Occupational Stress Questionnaire Feeling of Stress : Not at all Social Connections: Not on file Intimate Partner Violence: Unknown (09/04/2023) Received from [facility] Safety & Environment Fear of Current or Ex-Partner: Not on file Emotionally Abused: Not on file Physically Abused: Not on file Sexually Abused: Not on file Physically or Sexually Abused: Not on file Housing Stability: Not on file ROS: General: denies fever, chills, fatigue, malaise OBJECTIVE LE EXAM: DERM: Elongated thick yellow crumbly nails digits 1 through 10. Negative hair growth with thin shiny atrophic skin bilaterally +1 pitting edema to bilateral ankles and feet Right sub first metatarsal has slightly fissure with negative erythema or drainage. VASC: Negative DP and negative PT pedal pulses NEURO: 5.07 [place] Grayson monofilament test diminished to digits and forefoot bilaterally 125Hz tuning fork diminished to 1st MPJ bilaterally ORTHO: Positive pain on palpation to toenails of the left 1,2,3,4,5 toes and right 1,2,3,4,5 toes Positive POP to right first metatarsal fissure of skin ASSESSMENT 1. Diabetes mellitus due to underlying condition with diabetic polyneuropathy, with long-term current use of insulin ([facility]) 2. Pain due to onychomycosis of toenails of both feet 3. Venous insufficiency 4. Skin fissure PLAN Discussed proper foot care with patient today. Debride nails in length and thickness digits 1 through 10 Patient educated today on proper diabetic foot care including monitoring feet daily for any signs of infection openings in the skin or irregularities to both feet. Patient had a diabetic neurological exam today to both their feet and discussed proper shoe gear. Patient to continue with creams to feet daily and offered refill today of prescription for patient to call if needed. Pt advised to use twice daily Raffi Lopez DPM documented in this encounter [facility] 10-20-2024 Procedure note [facility] enter 09-09-2024 History of Presen t illness Narrative Patient: Apolinar Norman : 1940 PCP: Justo Cameron MD SUBJECTIVE This is a 84 y.o. male that presents today with a CC of elongated, thick nails. Pt states nails have been elongated and thick for many years and cause pain with ambulation in shoegear. Pt has tried previous treatment with minimal relief. Pt presents today for nail care and treatment. Patient is DM2 Patient has positive history of venous stasis Pt has hx of fissures to b/l feet and states pain with no tx at this time and denies drainage. Allergies: Allergies Allergen Reactions Edilma Inhibitors Other Levofloxacin Rash Penicillins Rash Past Medical History: Past Medical History: Diagnosis Date Actinic keratosis Allergies BCC (basal cell carcinoma of skin) 2016 posterior neck CAD (coronary artery disease) (CMS/HCC) Carotid artery disease (CMS/HCC) CKD (chronic kidney disease) stage 3 COPD (chronic obstructive pulmonary disease) (CMS/HCC) DDD (degenerative disc disease), cervical Diabetes (CMS/HCC) Hiatal hernia Hip fracture (CMS/HCC) 02/03/2024 Left Hx of cardiac pacemaker Hypertension (CMS/HCC) Hypothyroid (CMS/HCC) Lesion of hard palate OM (onychomycosis) Pacemaker PVD (peripheral vascular disease) (CMS/HCC) Sinus problem Squamous cell skin cancer Medications: Current Outpatient Medications: amiodarone (Pacerone) 200 MG tablet, Take 1 tablet by mouth in the morning., Disp: , Rfl: aspirin 81 MG EC tablet, Take 81 mg by mouth in the morning., Disp: , Rfl: atorvastatin (Lipitor) 80 MG tablet, Take 1 tablet (80 mg) by mouth Daily, Disp: 100 tablet, Rfl: 3 clopidogrel (Plavix) 75 MG tablet, Take 1 tablet (75 mg) by mouth Daily, Disp: 100 tablet, Rfl: 3 furosemide (Lasix) 40 MG tablet, Take 40 mg by mouth in the morning and 40 mg before bedtime., Disp: , Rfl: glucose blood (True Metrix Blood Glucose Test) test strip, 1 each by Other route Daily, Disp: 100 each, Rfl: 3 glyBURIDE (Diabeta) 1.25 MG tablet, Take 1 tablet (1.25 mg) by mouth in the morning. Take with meals., Disp: 100 tablet, Rfl: 3 Lancets Ultra Thin misc, 1 each in the morning., Disp: 100 each, Rfl: 2 levothyroxine (Synthroid, Levoxyl) 100 MCG tablet, Take 1 tablet (100 mcg) by mouth in the morning. Take before meals., Disp: 100 tablet, Rfl: 3 metoprolol succinate XL (Toprol-XL) 50 MG 24 hr tablet, Take 50 mg by mouth Daily Do not crush or chew., Disp: , Rfl: omeprazole (PriLOSEC) [address] capsule, Take one capsule daily, Disp: 100 capsule, Rfl: 3 traMADol (Ultram) 50 MG tablet, Take 1-2 tablets (50-100 mg) by mouth every 8 (eight) hours if needed for severe pain, Disp: 60 tablet, Rfl: 1 Social History: Social History Socioeconomic History Marital status: Spouse name: Not on file Number of children: Not on file Years of education: Not on file Highest education level: Not on file Occupational History Not on file Tobacco Use Smoking status: Former Current packs/day: 0.00 Types: Cigarettes Quit date: 1982 Years since quittin.1 Passive exposure: Past Smokeless tobacco: Never Vaping Use Vaping status: Unknown Substance and Sexual Activity Alcohol use: Yes Alcohol/week: 4.0 standard drinks of alcohol Types: 4 Standard drinks or equivalent per week Comment: caffeine: 3-4 cups per day Drug use: Never Sexual activity: Defer Other Topics Concern Not on file Social History Narrative Not on file Social Drivers of Health Financial Resource Strain: Low Risk (08/08/2022) Received from [facility], [facility] Overall Financial Resource Strain (CARDIA) Difficulty of Paying Living Expenses: Not very hard Food Insecurity: Not on file Transportation Needs: No Transportation Needs (08/08/2022) Received from [facility], [facility] PRAPARE - Transportation Lack of Transportation (Medical): No Lack of Transportation (Non-Medical): No Physical Activity: Not on file Stress: No Stress Concern Present (08/08/2022) Received from [facility], [facility] [employer] [facility] [employer] - Occupational Stress Questionnaire Feeling of Stress : Not at all Social Connections: Not on file Intimate Partner Violence: Unknown (09/04/2023) Received from [facility], [facility] [place] Safety & Environment Fear of Current or Ex-Partner: Not on file Emotionally Abused: Not on file Physically Abused: Not on file Sexually Abused: Not on file Physically or Sexually Abused: Not on file Housing Stability: Not on file ROS: General: denies fever, chills, fatigue, malaise OBJECTIVE LE EXAM: DERM: Elongated thick yellow crumbly nails digits 1 through 10. Negative hair growth with thin shiny atrophic skin bilaterally +1 pitting edema to bilateral ankles and feet Right sub first metatarsal has small fissure with negative erythema or drainage. VASC: Negative DP and negative PT pedal pulses NEURO: 5.07 [place] monofilament test diminished to digits and forefoot bilaterally 125Hz tuning fork diminished to 1st MPJ bilaterally ORTHO: Positive pain on palpation to toenails of the left 1,2,3,4,5 toes and right 1,2,3,4,5 toes Positive POP to right first metatarsal fissure of skin ASSESSMENT 1. Diabetes mellitus due to underlying condition with diabetic polyneuropathy, with long-term current use of insulin ([facility]) 2. Pain due to onychomycosis of toenails of both feet 3. Venous insufficiency 4. Skin fissure PLAN Discussed proper foot care with patient today. Debride nails in length and thickness digits 1 through 10 Patient educated today on proper diabetic foot care including monitoring feet daily for any signs of infection openings in the skin or irregularities to both feet. Patient had a diabetic neurological exam today to both their feet and discussed proper shoe gear. Patient to continue with creams to feet daily and offered refill today of prescription for patient to call if needed. Pt advised to use twice daily Raffi Lopez DPM documented in this encounter [facility] 08-20-2024 Telephone encount er Note Received no response; closing referral. [facility] 08-20-2024 Miscellaneous Notes Formattin g of this note might be different from the original. Received no response; closing referral. Tried to contact re: cx over automated reminder; but I had to lm. I requested a call back to verify status and to note today was last PT scheduled; recommend rs if needed. documented in this encounter [facility] 08-09-2024 Telephone encount er Note Tried to contact re: cx over automated reminder; but I had to lm. I requested a call back to verify status and to note today was last PT scheduled; recommend rs if needed. [facility] 08-02-2024 History of Presen t illness Narrative Images from the original note were not included. Physical Therapy Treatment Visit Patient Name: Apolinar Norman Today's Date: 08/02/2024 Encounter Diagnoses Name Primary? Vertigo Yes Visit number: 2 Timed Code Treatment Minutes: 40 minutes Total Treatment Time: 50 minutes Time In: 1500 Time Out: 1550 History: Pt states about a week ago he woke up with vertigo. States room was spinning. Sx's now are not as bad as they were then but still present. Pt states he is also recovering from a broken left. Precautions: Left partial KASSANDRA; PACEMAKER Subjective: Pt states he has not had a lot of room spinning dizziness; however, continues with some lightheadedness when transferring supine to sit. Pain: 1-2/10 Objective: PT Evaluation (07/23/2024) CERVICAL CROM: WFL Joint play: not tested Special Test: Modified VBI Testing: negative bilateral Hallpike: Dizziness and mild nystagmus right Hallpike; negative left Hallpike Roll Test: not tested Treatment: Education: HEP education with demonstration, Educated on Eval Findings and POC Manual Therapy: (18 minutes) Passive ROM, Joint mobilization, Soft Tissue Mobilization, Myofascial Release, Muscle Energy Technique, Neural Mobilization, Myofascial Cupping, Dry Needling, IASTM, and Scar mobilization as needed. Manual cervical spine distraction and lateral glides to increase cervical mobility. Therapeutic Exercise: (9 minutes) Strength, Endurance, Flexibility, ROM, HEP, Neural Mobilization, Power, and Core Stability as needed. Therapeutic Activity: Exercises to improve dynamic activities, functional tasks, functional mobility to return to prior activity level as needed. Neuromuscular re-education: (12 minutes) Balance Training, Muscle Facilitation, Dynamic Stability, Core Stabilization, and Blood Flow Restriction Training (BFRT) as needed. Repositioned for positive right Hallpike. Pt instructed in home program this date; written instructions and pictures issued with good pt understanding. Modalities: Heat, Ice, Electrical Stimulation, Ultrasound, Cervical Mechanical Traction, Lumbar Mechanical Traction, Iontophoresis, and Fluidotherapy as needed. HP to cervical region prior to manual therapy in supine X 10 minutes Assessment: Pt has completed 2 PT sessions for dizziness. Bilateral Roll tests assessed this date with negative s/s. Bilateral Hallpike testing negative this date. Added manual therapy to cervical spine with good ravin. Stretches issued for HEP. Will re-assess next week. Outcome Measure: Dizziness Handicap Inventory (DHI): 24/100 Rehab Diagnosis: dizziness; difficulty walking Short Term Goal: To be met in 2 weeks Goal 1: Pt to be instructed in home exercise program. Shelter Goals: To be met in 10 weeks Goal 1: Pt to report independence and compliance with home program. Goal 2: Pt to present with negative BPPV testing. Goal 3: Pt to report decrease dizziness by 90% throughout the day. Goal 4: Pt to score no greater than 8/100 on DHI indicating improved QOL. Pt will benefit from skilled PT for 1x/week from 07/23/2024 to 10/01/2024 to address the above impairments. I hereby deem this POC medically necessary. Please sign below. Date: documented in this encounter [facility] 07-28-2024 Evaluation note Diagnosis Onset Date Resolution 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 July 28, 2024 9:53am CHF (congestive heart failure) acute July 28, 2024 9:53am Chronic kidney disease, stage IV (severe) acute July 28, 2024 9:53am Diabetic nephropathy associated with type 2 diabetes mellitus acute July 28, 2024 9:53am Hyperparathyroidism acute 2024 9:53am Hypertensive nephropathy acute July 28, 2024 9:53am Hyperuricemia acute July 9:53am 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 October 20, 2024 8:18am CHF (congestive heart failure) acute October 20, 2024 8:18am Chronic kidney disease, stage IV (severe) acute October 20 8:18am Diabetic nephropathy associated with type 2 diabetes mellitus acute October 20 8:18am Hyperparathyroidism acute October 20, 2024 8:18am Hypertensive nephropathy acute October 20, 2024 8:18am Hyperuricemia acute October 20, 2024 8:18am [facility] Work Phone: [phone] 499-789201-10-2025 History of Present illness Narrative* Luna Espinal, PT - 07/23/2024 10:30 AM EST Images from the original note were not included. Physical Therapy Evaluation Visit Patient Name: Apolinar Norman Today's Date: 07/23/2024 Encounter Diagnoses Name Primary? Vertigo Yes Visit number: 1 Timed Code Treatment Minutes: 43 minutes Total Treatment Time: 43 minutes Time In: 1020 Time Out: 1104 History: Pt states about a week ago he woke up with vertigo. States room was spinning. Sx's now arenot as bad as they were then but still present. Pt states he is also recovering from a broken left. Precautions: Left partial KASSANDRA; PACEMAKER Subjective: left hip/leg feel achy today Pain: 1-2/10 Objective: PT Evaluation (07/23/2024) CERVICAL CROM: WFL Joint play: not tested Special Test: Modified VBI Testing: negative bilateral Hallpike: Dizziness and mild nystagmus right Hallpike; negative left Hallpike Roll Test: not tested Treatment: Education: HEP education with demonstration, Educated on Eval Findings and POC Manual Therapy: Passive ROM, Joint mobilization, Soft Tissue Mobilization, Myofascial Release, Muscle Energy Technique, Neural Mobilization, Myofascial Cupping, Dry Needling, IASTM, and Scar mobilization as needed. Therapeutic Exercise: Strength, Endurance, Flexibility, ROM, HEP, Neural Mobilization, Power, and Core Stability as needed. Therapeutic Activity: Exercises to improve dynamic activities, functional tasks, functional mobility to return to prior activity level as needed. Neuromuscular re-education: (24 minutes) Balance Training, Muscle Facilitation, Dynamic Stability, Core Stabilization, and Blood Flow Restriction Training (BFRT) as needed. Repositioned for positive right Hallpike. Pt instructed in home program this date; written instructions and pictures issued with good pt understanding. Modalities: Heat, Ice, Electrical Stimulation, Ultrasound, Cervical Mechanical Traction, Lumbar Mechanical Traction, Iontophoresis, and Fluidotherapy as needed. Assessment: Pt is 84 y/o male with complaints of dizziness. Pt denies falls. Bilateral VBI testing is negative. Sx;s reported with right Hallpike; left Hallpike negative. Pt repositioned and issued Sid Sol exercises for home program. Pt will benefit from further PT. Outcome Measure: Dizziness Handicap Inventory (DHI): 24/100 Rehab Diagnosis: dizziness; difficulty walking Short Term Goal: To be met in 2 weeks Goal 1: Pt to be instructed in home exercise program. Shelter Goals: To be met in 10 weeks Goal 1: Pt to report independence and compliance with home program. Goal 2: Pt to present with negative BPPV testing. Goal 3: Pt to report decrease dizziness by 90% throughout the day. Goal 4: Pt to score no greater than 8/100 on DHI indicating improved QOL. Pt will benefit from skilled PT for 1x/week from 07/23/2024 to 10/01/2024 to address the above impairments. I hereby deem this POC medically necessary. Please sign below. Date: [facility] [id number] History of Present illness Narrative* Justo Cameron MD - 07/21/2024 11:00 AM EST Images from the original note were not included. Subjective Patient ID: Apolinar Norman is a 84 y.o. male who presents for Dizziness. Pt states he noticed dizziness 1 week ago Happens when he changes positions Sensation of room spinning No recent falls due to dizziness Denies : visual changes, nausea/vomiting,headaches, no recent head injury Dizziness Current Outpatient Medications on File Prior to Visit Medication Sig Dispense Refill amiodarone (Pacerone) 200 MG tablet Take 1 tablet by mouth in the morning. aspirin 81 MG EC tablet Take 81 mg by mouth in the morning. atorvastatin (Lipitor) 80 MG tablet Take 1 tablet (80 mg) by mouth Daily 100 tablet 3 clopidogrel (Plavix) 75 MG tablet Take 1 tablet (75 mg) by mouth Daily 100 tablet 3 furosemide (Lasix) 40 MG tablet Take 40 mg by mouth in the morning and 40 mg before bedtime. glucose blood (True Metrix Blood Glucose Test) test strip 1 each by Other route Daily 100 each 3 glyBURIDE (Diabeta) 1.25 MG tablet Take 1 tablet (1.25 mg) by mouth in the morning. Take with meals. 100 tablet 3 Lancets Ultra Thin misc 1 each in the morning. 100 each 2 levothyroxine (Synthroid, Levoxyl) 100 MCG tablet Take 1 tablet (100 mcg) by mouth in the morning. Take before meals. 100 tablet 3 metoprolol succinate XL (Toprol-XL) 50 MG 24 hr tablet Take 50 mg by mouth Daily Do not crush or chew. omeprazole (PriLOSEC) [address] capsule Take one capsule daily 100 capsule 3 No current facility-administered medications on file prior to visit. I have reviewed and reconciled the history and medication list with the patient today. Allergies Allergen Reactions Edilma Inhibitors Other Levofloxacin Rash Penicillins Rash Social History Tobacco Use Smoking status: Former Current packs/day: 0.00 Types: Cigarettes Quit date: 1982 Years since quittin.0 Passive exposure: Past Smokeless tobacco: Never Vaping Use Vaping status: Unknown Substance Use Topics Alcohol use: Yes Alcohol/week: 4.0 standard drinks of alcohol Types: 4 Standard drinks or equivalent per week Comment: caffeine: 3-4 cups per day Drug use: Never Family History Problem Relation Name Age of Onset Irritable bowel syndrome Father Diabetes Father Hypertension Father Diabetes Paternal Grandmother Stroke Paternal Grandfather Melanoma Neg Hx Past Medical History: Diagnosis Date Actinic keratosis Allergies BCC (basal cell carcinoma of skin) 2016 posterior neck CAD (coronary artery disease) (CMS/HCC) Carotid artery disease (CMS/HCC) CKD (chronic kidney disease) stage 3 COPD (chronic obstructive pulmonary disease) (CMS/HCC) DDD (degenerative disc disease), cervical Diabetes (CMS/HCC) Hiatal hernia Hip fracture (CMS/HCC) 02/03/2024 Left Hx of cardiac pacemaker Hypertension (CMS/HCC) Hypothyroid (CMS/HCC) Lesion of hard palate OM (onychomycosis) Pacemaker PVD (peripheral vascular disease) (CMS/HCC) Sinus problem Squamous cell skin cancer Past Surgical History: Procedure Laterality Date CARDIAC CATHETERIZATION 2010 CARDIAC PACEMAKER PLACEMENT 04/11/2017 CARDIAC SURGERY 1992 triple bypass CARPAL TUNNEL RELEASE 2014 CATARACT EXTRACTION 2007 COLONOSCOPY 08/2010 ILIAC ARTERY STENT Bilateral 2007 PVD PALATOPLASTY 12/17/2016 palate lesion PARTIAL HIP ARTHROPLASTY Left 02/03/2024 SOFT TISSUE CYST EXCISION Left 02/2021 left neck VASCULAR SURGERY 01/10/2022 Visit Vitals BP 124/64 Comment: standing 116/58 Pulse 60 Comment: standing 52 Ht 5' 11 Wt 191 lb SpO2 99% BMI 26.64 kg/m Smoking Status Former BSA 2.08 m Review of Systems Neurological: Positive for dizziness. Objective Physical Exam Constitutional: General: He is not in acute distress. Appearance: He is normal weight. He is not ill-appearing. Comments: Chronically ill appearing HENT: Head: Normocephalic. Right Ear: Tympanic membrane and ear canal normal. Left Ear: Tympanic membrane and ear canal normal. Cardiovascular: Rate and Rhythm: Normal rate and regular rhythm. Heart sounds: Murmur heard. Pulmonary: Effort: Pulmonary effort is normal. Prolonged expiration present. Breath sounds: Decreased air movement present. Musculoskeletal: General: No swelling. Right lower leg: Edema present. Left lower leg: Edema present. Neurological: Mental Status: He is alert. Psychiatric: Mood and Affect: Mood normal. Assessment/Plan Diagnoses and all orders for this visit: Vertigo - Ambulatory referral to Physical Therapy; Future Diabetic nephropathy associated with type 2 diabetes mellitus (HCC) (CMS/HCC) Chronic hip pain, left - traMADol (Ultram) 50 MG tablet; Take 1-2 tablets (50-100 mg) by mouth every 8 (eight) hours if needed for severe pain 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 - traMADol (Ultram) 50 MG tablet; Take 1-2 tablets (50-100 mg) by mouth every 8 (eight) hours if needed for severe pain Chronic obstructive pulmonary disease, unspecified (CMS/HCC) Type 2 diabetes mellitus with diabetic chronic kidney disease (CMS/HCC) Chronic kidney disease, stage 4 (severe) (CMS/HCC) Type 2 diabetes mellitus with diabetic peripheral angiopathy without gangrene (CMS/HCC) Chronic diastolic congestive heart failure (CMS/HCC) Follow up in about 6 weeks (around 09/01/2024) for F/U med changes. documented in this encounterMiss[facility] [id number] History of Present illness Narrative* Raffi Lopez, DP - 06/24/2024 11:30 AM EST Patient: Apolinar Norman : 1940 PCP: Justo Cameron MD SUBJECTIVE This is a 84 y.o. male that presents today with a CC of elongated, thick nails. Pt states nails have been elongated and thick for many years and cause pain with ambulation in shoegear. Pt has tried previous treatment with minimal relief. Pt presents today for nail care and treatment. Patient is DM2 Patient has positive history of venous stasis Allergies: Allergies Allergen Reactions Edilma Inhibitors Other Levofloxacin Rash Penicillins Rash Past Medical History: Past Medical History: Diagnosis Date Actinic keratosis Allergies BCC (basal cell carcinoma of skin) 2016 posterior neck CAD (coronary artery disease) (CMS/HCC) Carotid artery disease (CMS/HCC) CKD (chronic kidney disease) stage 3 COPD (chronic obstructive pulmonary disease) (CMS/HCC) DDD (degenerative disc disease), cervical Diabetes (CMS/HCC) Hiatal hernia Hip fracture (CMS/HCC) 02/03/2024 Left Hx of cardiac pacemaker Hypertension (CMS/HCC) Hypothyroid (CMS/HCC) Lesion of hard palate OM (onychomycosis) Pacemaker PVD (peripheral vascular disease) (CMS/HCC) Sinus problem Squamous cell skin cancer Medications: Current Outpatient Medications: amiodarone (Pacerone) 200 MG tablet, Take 1 tablet by mouth in the morning., Disp: , Rfl: aspirin 81 MG EC tablet, Take 81 mg by mouth in the morning., Disp: , Rfl: atorvastatin (Lipitor) 80 MG tablet, Take 1 tablet (80 mg) by mouth Daily, Disp: 100 tablet, Rfl: 3 clopidogrel (Plavix) 75 MG tablet, Take 1 tablet (75 mg) by mouth Daily, Disp: 100 tablet, Rfl: 3 furosemide (Lasix) 40 MG tablet, Take 40 mg by mouth in the morning and 40 mg before bedtime., Disp: , Rfl: glucose blood (True Metrix Blood Glucose Test) test strip, 1 each by Other route Daily, Disp: 100 each, Rfl: 3 glyBURIDE (Diabeta) 1.25 MG tablet, Take 1 tablet (1.25 mg) by mouth in the morning. Take with meals., Disp: 100 tablet, Rfl: 3 Lancets Ultra Thin misc, 1 each in the morning., Disp: 100 each, Rfl: 2 levothyroxine (Synthroid, Levoxyl) 100 MCG tablet, Take 1 tablet (100 mcg) by mouth in the morning.Take before meals., Disp: 100 tablet, Rfl: 3 metoprolol succinate XL (Toprol-XL) 50 MG 24 hr tablet, Take 50 mg by mouth Daily Do not crush or chew., Disp: , Rfl: omeprazole (PriLOSEC) [address] capsule, Take one capsule daily, Disp: 100 capsule, Rfl: 3 Social History: Social History Socioeconomic History Marital status: Spouse name: Not on file Number of children: Not on file Years of education: Not on file Highest education level: Not on file Occupational History Not on file Tobacco Use Smoking status: Former Current packs/day: 0.00 Types: Cigarettes Quit date: 1982 Years since quittin.9 Passive exposure: Past Smokeless tobacco: Never Vaping Use Vaping status: Unknown Substance and Sexual Activity Alcohol use: Yes Alcohol/week: 4.0 standard drinks of alcohol Types: 4 Standard drinks or equivalent per week Comment: caffeine: 3-4 cups per day Drug use: Never Sexual activity: Defer Other Topics Concern Not on file Social History Narrative Not on file Social Drivers of Health Financial Resource Strain: Low Risk (08/08/2022) [facility] from [facility], [facility] Overall Financial Resource Strain (CARDIA) Difficulty of Paying Living Expenses: Not very hard Food Insecurity: Not on file Transportation Needs: No Transportation Needs (08/08/2022) Received from [facility], [facility] PRAPARE - Transportation Lack of Transportation (Medical): No Lack of Transportation (Non-Medical): No Physical Activity: Not on file Stress: No Stress Concern Present (08/08/2022) Received from [facility], [facility] [employer] [facility] [employer] - Occupational Stress Questionnaire Feeling of Stress : Not at all Social Connections: Not on file Intimate Partner Violence: Unknown (09/04/2023) Received from [facility], [facility] [place] Safety & Environment Fear of Current or Ex-Partner: Not on file Emotionally Abused: Not on file Physically Abused: Not on file Sexually Abused: Not on file Physically or Sexually Abused: Not on file Housing Stability: Not on file ROS: General: denies fever, chills, fatigue, malaise OBJECTIVE LE EXAM: DERM: Elongated thick yellow crumbly nails digits 1 through 10. Negative hair growth with thin shiny atrophic skin bilaterally +1 pitting edema to bilateral ankles and feet VASC: Negative DP and negative PT pedal pulses NEURO: 5.07 [place] monofilament test diminished to digits and forefoot bilaterally 125Hz tuning fork diminished to 1st MPJ bilaterally ORTHO: Positive pain on palpation to nails 1 through 10 ASSESSMENT 1. Diabetes mellitus due to underlying condition with diabetic polyneuropathy, with long-term current use of insulin ([facility]) 2. Pain due to onychomycosis of toenails of both feet 3. Venous insufficiency PLAN Discussed proper foot care with patient today. Debride nails in length and thickness digits 1 through 10 Patient educated today on proper diabetic foot care including monitoring feet daily for any signs of infection openings in the skin or irregularities to both feet. Patient had a diabetic neurologicalexam today to both their feet and discussed proper shoe gear. Raffi Lopez DPM documented in this encounterMissouri Delta Medical [id number] History of Present illness Narrative* Hi Foster MD - 05/10/2024 10:20 AM EDT Skin Check Location: Patient requests a skin examination from the waist up Dermatologic history: history of Actinic Keratosis, history of Basal Cell Carcinoma, history of Squamous Cell Carcinoma Last visit: 1 year ago Established patient Lesions: Location: Nose Duration: Few years Quality: denies pain, denies itch, denies bleeding Associated symptoms: enlarged, rough Treatments: none All pertinent medical history, medications, and allergies were reviewed. General Exam: alert, oriented to person, place, and time, normal affect, well appearing uses a wheelchair Accompanied by daughter A complete skin exam was offered, pt declined. Areas not examined despite medical recommendation: From the waist down Scalp, Examined Head, Face Examined Neck Examined Chest Examined Back Examined Abdomen Examined Right arm Examined Left arm Examined Hands Examined Digits,nails: Examined Lymphatics: Not examined 1. Other rosacea Mid Tip of Nose Rhinophyma. Flaring today The patient was informed that rosacea a chronic condition that can be controlled but not cured. Theappearance of redness and pimples can often be improved with a low dose antibiotic or topical medications. Rhinophyma can be difficult to treat, best treatment would be CO2 laser. Treatment offered, patient declines at this time. Notify office if worsening/treatment is desired. 2. Actinic keratosis (6) Dorsum of Nose, Left Ear, Left Forearm - Posterior (2), Left Forehead, Right Ear Erythematous scaly papules Patient was counseled regarding these sun-induced growths that can develop into squamous cell carcinoma if left untreated. Discussed treatment with cryotherapy. It was emphasized that any treated lesions that fail to resolve should be re- evaluated. Cryotherapy performed today; see procedure note Diagnosis: Actinic keratosis Indication: Precancerous Location: see skin exam Consent: Verbal consent was obtained and risks were discussed, including, but not limited to risks of scarring, darker or wire brush operator pigmentary changes, recurrence, incomplete removal and infection. Method: Liquid nitrogen was used to treat the lesion(s) with two 5-10 second freeze-thaw cycles. Number of lesions treated: 6 Post-procedure instructions: Instructions were given orally and in writing. The office will be contacted if the lesion fails to resolve despite treatment, or if a side effect develops such as abnormal crusting, scabbing, redness or tenderness Cryotherapy, skin lesion - Dorsum of Nose, Left Ear, Left Forearm - Posterior (2), Left Forehead, Right Ear 3. EIC (epidermal inclusion cyst) Left Upper Back erythematous, subcutaneous nodule Patient was counseled regarding cysts. Although benign, cysts often slowly enlarge and can occasionally become inflamed. Discussed the only way to definitively diagnose the lesion would be to have itremoved and tested. Discussed treatment options including observation vs. excision. Patient elected for observation. Next Visit: 1 year documented in this encounterMissouri Delta Medical [id number] Evaluation note* Diagnosis Onset Date Resolution Status Admit Date Chronic kidney disease, stage 5 acut e May 03, 2024 10:52am Anemia in chronic kidney disease acu te May 05, 2024 2:20pm CHF (congestive heart failure) acute May 05, 2024 2:20pm Chronic kidney disease, stag e IV (severe) acute May 05 2:20pm Diabetic nephropathy associa mario with type 2 diabetes mellitus acute Oc tober 2023 2:20pm Hyperparathyroidism acute Octob er 2023 2:20pm Hypertensive nephropathy acute May 05, 2024 2:20pm Hyperuricemia acute April 2:20pm H/O fracture of left hip noneactive May 05, 2024 2:20pm Anemia in chronic kidney disease acu te July 28, 2024 9:53am CHF (congestive heart failure) acute July 28, 2024 9:53am Chronic kidney disease, stag e IV (severe) acute July 28 9:53am Diabetic nephropathy associa mario with type 2 diabetes mellitus acute Ja nuary 2024 9:53am Hyperparathyroidism acute Janua ry 2024 9:53am Hypertensive nephropathy acute July 28, 2024 9:53am Hyperuricemia acute July 9:53am [facility] Work Phone: 1([phone]) 993-186810-10-2024 History of Present illness Narrative* Tawanda Pro, - 04/22/2024 10:30 AM EDT Tessa Norman is a 84 y.o. male Chief Complaint Follow-up 84-year-old gentleman returns for follow-up, former patient of Dr. Murdock's whom I am now assumingcardiovascular care. He is complicated cardiovascular history that is reviewed with the remote surgical revascularization in [place] as well as percutaneous intervention of the vein graft in [place] dating back couple decades. He now has chronic renal failure has not AV fistula in the left arm that is maturing and pending dialysis potentially. He still has active renal function and makes urine. 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 He does have a permanent pacemaker and it is reviewed there were no arrhythmias noted on his pacemaker Today's ECG reveals sinus bradycardia at a rate of [address]-T wave abnormality. Recommendations: Continue conservative cardiovascular management and current therapies, follow-up in 8 months Review of Systems All other systems reviewed and are negative. Vitals: 04/22/24 1041 BP: 140/72 BP Location: Right arm Patient Position: Sitting Pulse: 60 Weight: 85.7 kg (189 lb) Height: 1.791 m (5' 10.5 ) EKG done in office today Objective Physical Exam Constitutional: Appearance: Normal appearance. HENT: Nose: Nose normal. Neck: Vascular: No carotid bruit. Cardiovascular: Rate and Rhythm: Normal rate. Pulses: Normal pulses. Heart sounds: Normal heart sounds. Pulmonary: Effort: Pulmonary effort is normal. Abdominal: General: Bowel sounds are normal. Palpations: Abdomen is soft. Musculoskeletal: General: Normal range of motion. Cervical back: Normal range of motion. Right lower le+ Edema present. Left lower le+ Edema present. Skin: General: Skin is warm and dry. Neurological: General: No focal deficit present. Mental Status: He is alert. Psychiatric: Mood and Affect: Mood normal. Behavior: Behavior normal. Thought Content: Thought content normal. Judgment: Judgment normal. Allergies Edilma inhibitors, Levofloxacin, and Penicillins Current Medications Current Outpatient Medications: amiodarone (Pacerone) 200 mg tablet, TAKE 1 TABLET BY MOUTH DAILY, Disp: 90 tablet, Rfl: 0 ascorbic acid (Vitamin C) 1,000 mg tablet, Take 1 tablet (1,000 mg) by mouth once daily., Disp: , Rfl: aspirin 81 mg EC tablet, Take 1 tablet (81 mg) by mouth once daily., Disp: , Rfl: atorvastatin (Lipitor) 80 mg tablet, Take 1 tablet (80 mg) by mouth once daily., Disp: , Rfl: cholecalciferol (Vitamin D3) 25 MCG (1000 UT) tablet, Take 1 tablet (1,000 Units) by mouth once daily., Disp: , Rfl: clopidogrel (Plavix) 75 mg tablet, Take 1 tablet (75 mg) by mouth once daily., Disp: , Rfl: furosemide (Lasix) 40 mg tablet, Take 1 tablet (40 mg) by mouth 3 times daily (morning, midday, late afternoon)., Disp: , Rfl: glyBURIDE (Diabeta) 1.25 mg tablet, Take 1 tablet (1.25 mg) by mouth once daily., Disp: , Rfl: levothyroxine (Synthroid, Levoxyl) 100 mcg tablet, Take 1 tablet (100 mcg) by mouth once daily., Disp: , Rfl: metoprolol succinate XL (Toprol-XL) 50 mg 24 hr tablet, Take 1 tablet (50 mg) by mouth once daily.,Disp: 90 tablet, Rfl: 3 nitroglycerin (Nitrostat) 0.4 mg SL tablet, Place under the tongue., Disp: , Rfl: omeprazole (PriLOSEC) [address] capsule, Take 1 capsule (40 mg) by mouth once daily., Disp: , Rfl: Assessment/Plan 1. Dizziness Follow Up In Cardiology 2. 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 3. S/P CABG (coronary artery bypass graft) 4. History of PTCA 5. Mixed hyperlipidemia 6. Sinus bradycardia 7. Cardiac pacemaker in situ 8. High risk medication use 9. BMI 26.0-26.9,adult 10. Arrhythmia, ventricular 11. Type 2 diabetes mellitus with diabetic nephropathy, without long-term current use of insulin 12. Stage 4 chronic kidney disease (Multi) 13. Former smoker 14. PVD (peripheral vascular disease) ([facility]) 15. Essential hypertension Scribe Attestation By signing my name below, I, Rene Guzman LPN attest that this documentation has been prepared under the direction and in the presence of Danielito Pro DO. Provider Attestation - Scribe documentation All medical record entries made by the Scribe were at my direction and personally dictated by me. Ihave reviewed the chart and agree that the record accurately reflects my personal performance of the history, physical exam, discussion and plan. documented in this encounterUnOhioHealth [facility] Work Phone: [phone]) 719-734310-10-2024 Instructions* Patient Instructions* Yesy Villatoro LPN - 04/22/2024 10:30 AM EDT Please bring all medicines, vitamins, and herbal supplements with you when you come to the office. Prescriptions will not be filled unless you are compliant with your follow up appointments or have a follow up appointment scheduled as per instruction of your physician. Refills should be requested at the time of your visit. BMI was above normal measurement. Current weight: 85.7 kg (189 lb) Weight change since last visit (-) denotes wt loss -6 lbs Weight loss needed to achieve BMI 25: 12.6 Lbs Weight loss needed to achieve BMI 30: -22.6 Lbs Provided instructions on dietary changes. Amiodarone follow up per routine Pacemaker/Defibrillator follow up per routine * Attachments The following attachments cannot be sent through Care Everywhere. * DASH Diet (Kinyarwanda) [facility]St[facility] Work Phone: 1(525) 531-368810-03-2024 History of Present illness Narrative* Raffi Lopez, DPM - 04/15/2024 11:30 AM EDT Patient: Apolinar Norman : 1940 PCP: Justo Cameron MD SUBJECTIVE This is a 84 y.o. male that presents today with a CC of elongated, thick nails. Pt states nails have been elongated and thick for many years and cause pain with ambulation in shoegear. Pt has tried previous treatment with minimal relief. Pt presents today for nail care and treatment. Patient is DM2 Patient has positive history of venous stasis Allergies: Allergies Allergen Reactions Levofloxacin Rash Penicillins Rash Past Medical History: Past Medical History: Diagnosis Date Actinic keratosis Allergies BCC (basal cell carcinoma of skin) 2016 posterior neck CAD (coronary artery disease) (CMS/HCC) Carotid artery disease (CMS/HCC) CKD (chronic kidney disease) stage 3 COPD (chronic obstructive pulmonary disease) (CMS/HCC) DDD (degenerative disc disease), cervical Diabetes (CMS/HCC) Hiatal hernia Hip fracture (CMS/HCC) 02/03/2024 Left Hx of cardiac pacemaker Hypertension (CMS/HCC) Hypothyroid (CMS/HCC) Lesion of hard palate OM (onychomycosis) Pacemaker PVD (peripheral vascular disease) (CMS/HCC) Sinus problem Squamous cell skin cancer Medications: Current Outpatient Medications: amiodarone (Pacerone) 200 MG tablet, Take 1 tablet by mouth in the morning., Disp: , Rfl: aspirin 81 MG EC tablet, Take 81 mg by mouth in the morning., Disp: , Rfl: atorvastatin (Lipitor) 80 MG tablet, Take 1 tablet (80 mg) by mouth Daily, Disp: 100 tablet, Rfl: 3 clopidogrel (Plavix) 75 MG tablet, Take 1 tablet (75 mg) by mouth Daily, Disp: 100 tablet, Rfl: 3 furosemide (Lasix) 40 MG tablet, Take 40 mg by mouth in the morning and 40 mg before bedtime., Disp: , Rfl: glucose blood (True Metrix Blood Glucose Test) test strip, 1 each by Other route Daily, Disp: 100 each, Rfl: 3 glyBURIDE (Diabeta) 1.25 MG tablet, Take 1 tablet (1.25 mg) by mouth in the morning. Take with meals., Disp: 100 tablet, Rfl: 3 Lancets Ultra Thin misc, 1 each in the morning., Disp: 100 each, Rfl: 2 levothyroxine (Synthroid, Levoxyl) 100 MCG tablet, Take 1 tablet (100 mcg) by mouth in the morning.Take before meals., Disp: 100 tablet, Rfl: 3 metoprolol succinate XL (Toprol-XL) 50 MG 24 hr tablet, Take 50 mg by mouth Daily Do not crush or chew., Disp: , Rfl: omeprazole (PriLOSEC) [address] capsule, Take one capsule daily, Disp: 100 capsule, Rfl: 3 Social History: Social History Socioeconomic History Marital status: Spouse name: Not on file Number of children: Not on file Years of education: Not on file Highest education level: Not on file Occupational History Not on file Tobacco Use Smoking status: Former Current packs/day: 0.00 Types: Cigarettes Quit date: 1982 Years since quittin.7 Passive exposure: Past Smokeless tobacco: Never Vaping Use Vaping status: Unknown Substance and Sexual Activity Alcohol use: Yes Alcohol/week: 4.0 standard drinks of alcohol Types: 4 Standard drinks or equivalent per week Comment: caffeine: 3-4 cups per day Drug use: Never Sexual activity: Defer Other Topics Concern Not on file Social History Narrative Not on file Social Determinants of Health Financial Resource Strain: Low Risk (08/08/2022) Re[facility] Overall Financial Resource Strain (CARDIA) Difficulty of Paying Living Expenses: Not very hard Food Insecurity: Not on file Transportation Needs: No Transportation Needs (08/08/2022) Received from [facility], [facility] PRAPARE - Transportation Lack of Transportation (Medical): No Lack of Transportation (Non-Medical): No Physical Activity: Not on file Stress: No Stress Concern Present (08/08/2022) Received from [facility], [facility] [employer] [facility] [employer] - Occupational Stress Questionnaire Feeling of Stress : Not at all Social Connections: Not on file Intimate Partner Violence: Unknown (09/04/2023) Received from [facility], [facility] [place] Safety & Environment Fear of Current or Ex-Partner: Not on file Emotionally Abused: Not on file Physically Abused: Not on file Sexually Abused: Not on file Physically or Sexually Abused: Not on file Housing Stability: Not on file ROS: General: denies fever, chills, fatigue, malaise OBJECTIVE LE EXAM: DERM: Elongated thick yellow crumbly nails digits 1 through 10. Negative hair growth with thin shiny atrophic skin bilaterally +1 pitting edema to bilateral ankles and feet VASC: Negative DP and negative PT pedal pulses NEURO: 5.07 [place] monofilament test diminished to digits and forefoot bilaterally 125Hz tuning fork diminished to 1st MPJ bilaterally ORTHO: Positive pain on palpation to nails 1 through 10 ASSESSMENT 1. Diabetes mellitus due to underlying condition with diabetic polyneuropathy, with long-term current use of insulin ([facility]) 2. Venous insufficiency 3. Pain due to onychomycosis of toenails of both feet PLAN Discussed proper foot care with patient today. Debride nails in length and thickness digits 1 through 10 Patient educated today on proper diabetic foot care including monitoring feet daily for any signs of infection openings in the skin or irregularities to both feet. Patient had a diabetic neurologicalexam today to both their feet and discussed proper shoe gear. Raffi Lopez DPM documented in this encounterMissouri Delta Medical [id number] History of Present illness Narrative* Justo Cameron MD - 03/24/2024 4:00 PM EDT Images from the original note were not included. HPI Follow-up Additional comments: Discharged from [facility] 02/[facility] to [facility] after left hip fracture pt was discharged home from [facility] 3 weeks ago Pt has home health, PT,OT Med Refill Additional comments: Omeprazole-- [facility] Last edited by Hien Cisneros LPN on 03/24/2024 4:04 PM. Subjective Patient ID: Apolinar Norman is a 84 y.o. male who presents for Follow-up (Discharged from [facility] 02/10/24 to [facility] after left hip fracture pt was discharged home from [facility] 3 weeks ago/Pt has home health, PT,OT), Diabetes, Med Refill (Omeprazole-- [facility]), and trouble sleeping. Diabetes Mellitus Patient presents for follow up of diabetes. Current symptoms include: none. Patient denies foot ulcerations, hypoglycemia , nausea, polydipsia, polyuria, visual disturbances, and vomiting. Evaluationto date has included: fasting blood sugar, fasting lipid panel, and hemoglobin A1C. Home sugars: BGs range between 80 and 110. Pt has had trouble sleeping for quite awhile would like to discuss if there was something to helpwith this Pt states he noticed some dysuria x 3 days pt was treated for UTI in February and wondered if he had another UTI he is unable to provide a sample Diabetes Med Refill Current Outpatient Medications on File Prior to Visit Medication Sig Dispense Refill amiodarone (Pacerone) 200 MG tablet Take 1 tablet by mouth in the morning. aspirin 81 MG EC tablet Take 81 mg by mouth in the morning. atorvastatin (Lipitor) 80 MG tablet Take 1 tablet (80 mg) by mouth in the morning. 90 tablet 3 clopidogrel (Plavix) 75 MG tablet Take 1 tablet (75 mg) by mouth Daily 100 tablet 3 furosemide (Lasix) 40 MG tablet Take 40 mg by mouth in the morning and 40 mg before bedtime. glucose blood (True Metrix Blood Glucose Test) test strip 1 each by Other route Daily 100 each 3 glyBURIDE (Diabeta) 1.25 MG tablet Take 1 tablet (1.25 mg) by mouth in the morning. Take with meals. 100 tablet 3 Lancets Ultra Thin misc 1 each in the morning. 100 each 2 levothyroxine (Synthroid, Levoxyl) 100 MCG tablet Take 1 tablet (100 mcg) by mouth in the morning. Take before meals. 100 tablet 3 metoprolol succinate XL (Toprol-XL) 50 MG 24 hr tablet Take 50 mg by mouth Daily Do not crush or chew. omeprazole (PriLOSEC) [address] capsule Take one capsule daily 100 capsule 3 [DISCONTINUED] metoprolol succinate XL (Toprol-XL) 100 MG 24 hr tablet Take 1 tablet (100 mg) by mouth in the morning. Do not crush or chew.. 90 tablet 3 [DISCONTINUED] isosorbide mononitrate ER (Imdur) 30 MG 24 hr tablet Take 1 tablet (30 mg) by mouth in the morning. 90 tablet 3 No current facility-administered medications on file prior to visit. I have reviewed and reconciled the history and medication list with the patient today. Allergies Allergen Reactions Levofloxacin Rash Penicillins Rash Social History Tobacco Use Smoking status: Former Current packs/day: 0.00 Types: Cigarettes Quit date: 1982 Years since quittin.7 Passive exposure: Past Smokeless tobacco: Never Vaping Use Vaping status: Unknown Substance Use Topics Alcohol use: Yes Alcohol/week: 4.0 standard drinks of alcohol Types: 4 Standard drinks or equivalent per week Comment: caffeine: 3-4 cups per day Drug use: Never Family History Problem Relation Name Age of Onset Irritable bowel syndrome Father Diabetes Father Hypertension Father Diabetes Paternal Grandmother Stroke Paternal Grandfather Melanoma Neg Hx Past Medical History: Diagnosis Date Actinic keratosis Allergies BCC (basal cell carcinoma of skin) 2016 posterior neck CAD (coronary artery disease) (CMS/HCC) Carotid artery disease (CMS/HCC) CKD (chronic kidney disease) stage 3 COPD (chronic obstructive pulmonary disease) (CMS/HCC) DDD (degenerative disc disease), cervical Diabetes (CMS/HCC) Hiatal hernia Hip fracture (CMS/HCC) 02/03/2024 Left Hx of cardiac pacemaker Hypertension (CMS/HCC) Hypothyroid (CMS/HCC) Lesion of hard palate OM (onychomycosis) Pacemaker PVD (peripheral vascular disease) (CMS/HCC) Sinus problem Squamous cell skin cancer Past Surgical History: Procedure Laterality Date CARDIAC CATHETERIZATION 2010 CARDIAC PACEMAKER PLACEMENT 04/11/2017 CARDIAC SURGERY 1993 triple bypass CARPAL TUNNEL RELEASE 2015 CATARACT EXTRACTION 2008 COLONOSCOPY 08/2010 ILIAC ARTERY STENT Bilateral 2008 PVD PALATOPLASTY 12/17/2016 palate lesion PARTIAL HIP ARTHROPLASTY Left 02/03/2024 SOFT TISSUE CYST EXCISION Left 02/2021 left neck VASCULAR SURGERY 01/10/2022 Visit Vitals BP 128/66 Pulse 62 Ht 5' 11 Wt 196 lb SpO2 97% BMI 27.34 kg/m Smoking Status Former BSA 2.11 m Review of Systems Objective Physical Exam Constitutional: General: He is not [...] alert. Psychiatric: Mood and Affect: Mood normal. Office Visit on 03/24/2024 Component Date Value Ref Range Status Hemoglobin A1C 03/24/2024 5.7 Final Assessment/Plan Diagnoses and all orders for this visit: Acute cystitis without hematuria - cefdinir (Omnicef) 300 MG capsule; Take 1 capsule (300 mg) by mouth in the morning and 1 capsule (300 mg) before bedtime. Do all this for 5 days. Aware of PCN allergy, please prescribe anyway.. Diabetic nephropathy associated with type 2 diabetes mellitus (HCC) (CMS/HCC) - POCT Glycated hemoglobin, total - FSBS log shows good control, most recent A1C is at or near goal. Continue current treatment plan as previously outlined without changes. Chronic obstructive pulmonary disease, unspecified (CMS/HCC) - This is a chronic medical condition that is stable since last assessment. No changes in treatmentare suggested at this time. Follow up in about 4 months (around 07/24/2024) for DM- A1C. documented in this encounterMissouri Delta Medical [id number] Progress note Author Zion Oneal [facility] February 10, 2024 8:26am Note Date/Time February 10, 2024 8:26 am [facility] [address] [place] [address] Orthopedic Progress Note Signed Patient: Apolinar Norman MR#: [id number] [birth year] : 1940 Acct:[id number] Age/Sex: 84 / M Adm Date: 4 Loc: 4N Room: [id number] Type: ADM IN Attending Dr: Mere Nelson MD Copies to: ~ Date of Service: 02/10/2024 Exam Physical Exam Vital Signs: Temp Pulse Resp BP Pulse Ox O2 Del Method O2 Flow Rate 97.5 F L 46 L 12 127/54 L 99 Room Air 0 02/10/24 03:14 02/10/24 03:14 02/10/24 03:14 02/10/24 03:14 02/10/24 03:14 02/10/24 03:14 02/05/24 08:40 Narrative: Patient is alert and oriented with no specific complaints. The wound is clean and dry. The calf and thigh are nontender with no evidence of DVT. The leg is neurovascularly intact. Patient is able to move the ankle and toes without difficulty. Objective Labs Labs: Laboratory Results - last 24 hr 02/05/24 02/05/24 02/05/24 07:40 12:15 16:01 PHA Creatinine Clear Sodium Potassium Chloride Carbon Dioxide Anion Gap BUN Creatinine Est GFR (CKD-EPI) Glucose POC Glucose 203 187 149 Estimat Average Glucose Hemoglobin A1c Calcium 02/06/24 02/06/24 02/06/24 07:50 11:44 15:33 PHA Creatinine Clear Sodium Potassium Chloride Carbon Dioxide Anion Gap BUN Creatinine Est GFR (CKD-EPI) Glucose POC Glucose 104 188 157 Estimat Average Glucose Hemoglobin A1c Calcium 02/09/24 02/09/24 06:06 20:42 PHA Creatinine Clear 16.23 Sodium 135 L Potassium 3.5 Chloride 100 Carbon Dioxide 24.6 Anion Gap 13.9 BUN 77 H Creatinine 3.89 H Est GFR (CKD-EPI) 14.630 Glucose 138 H POC Glucose 170 Estimat Average Glucose 131 Hemoglobin A1c 6.2 H Calcium 8.2 L Assessment / Plan Assessment and plan (1) Left hip pain: Code(s): M25.552 - Pain in left hip Plan Awaiting placement. No reason for the patient to be in the hospital. Repeat x- rays 7 days postop. Have these sent to our office. Mariela out 14 days Documented By: Zion Oneal MD 02/10/24 0640 Signed By: <Electronically signed by MD Zion Oneal> 02/10/24 0826 [facility] Work Phone: 1([phone]) 170-668007-30-2024 Progress note Author Mere Nelson [facility] February 10, 2024 6:47am Note Date/Time February 09, 2024 5:33 pm [facility] [address] [place] [address] Hospitalist Progress Note Signed Patient: Apolinar Norman MR#: [id number] [birth year] : 1940 Acct:[id number] Age/Sex: 84 / M Adm Date: 4 Loc: 4N Room: [id number] Type: ADM IN Attending Dr: Mere Nelson MD Copies to: ~ Date of Service: 02/09/2024 Subjective Subjective Narrative: Patient seen and examined. Reports pain left hip, taking meds, up in chair. Adequate intake otherwise. Working with therapy, ambulates in room with walker. Denied inpatient stay, will seek SNF Exam Physical Exam Vital Signs: Temp Pulse Resp BP Pulse Ox O2 Del Method O2 Flow Rate 97.7 F 49 L 16 146/65 H 96 Room Air 0 02/09/24 15:25 02/09/24 15:25 02/09/24 15:25 02/09/24 15:25 02/09/24 15:25 02/09/24 15:25 02/05/24 08:40 Narrative: CONST- alert, in chair, no distress at rest CARD- slow irregular no abnormal heart tones PULM- dimin without wheeze or rhonchi, RA ABD- S/NT, NABS EXTREM- no edema BLE, calves nontender Skin?left hip dressing in place surgical site not seen Objective Lab Results 02/07/24 11:32 02/09/24 06:06 Meds Allergies and Active Meds Allergies levofloxacin Allergy (Verified 12/09/23 08:48) Rash Penicillins Allergy (Verified 12/09/23 08:48) Swelling, rash Active Meds: Active Medications Generic Name Dose Route Start Last Admin Trade Name Freq PRN Reason Stop Dose Admin Acetaminophen 1,000 mg 02/03/24 21:19 02/09/24 09:15 Acetaminophen 500 Mg Tablet PO 02/02/25 21:18 1,000 mg Q6HR PRN Administration Pain Scale 1 - 3 or fever Acetaminophen 1,000 mg 02/04/24 13:07 Acetaminophen 500 Mg Tablet PO 02/03/25 13:06 Q8H PRN Fever or Pain Amiodarone HCl 200 mg 02/03/24 23:00 02/08/24 21:08 Amiodarone 200 Mg Tablet PO 02/02/25 22:59 200 mg QPM REVA Administration Amlodipine Besylate 10 mg 02/08/24 09:10 02/09/24 09:17 Amlodipine 10 Mg Tablet PO 02/07/25 09:09 10 mg DAILY REVA Administration Aspirin 81 mg 02/05/24 09:00 02/09/24 09:17 Aspirin [address] Tablet.Dr GROSS 02/04/25 08:59 81 mg DAILY REVA Administration Atorvastatin Calcium 80 mg 02/04/24 22:00 02/08/24 21:08 Atorvastatin 80 Mg Tablet PO 02/03/25 21:59 80 mg QHS REVA Administration Clopidogrel Bisulfate 75 mg 02/07/24 12:45 02/09/24 09:17 Clopidogrel Bisulfate 75 Mg Tablet PO 02/06/25 12:44 75 mg DAILY REVA Administration Dextrose 0 gm 02/03/24 21:24 Dextrose 50% In Water 25 Gm/50 Ml Syringe IV-PUSH 02/02/25 21:23 PRN PRN Hypoglycemia Diphenhydramine HCl 25 mg 02/04/24 13:07 Diphenhydramine 25 Mg Capsule PO 02/03/25 13:06 Q6H PRN Itching Docusate Sodium 100 mg 02/03/24 21:19 Docusate 100 Mg Capsule PO 02/02/25 21:18 BID PRN Constipation Docusate Sodium 100 mg 02/04/24 21:00 02/09/24 09:17 Docusate 100 Mg Capsule PO 02/03/25 20:59 100 mg BID REVA Administration Docusate Sodium 283 mg 02/07/24 10:14 Docusate Enema 283 Mg/5 Ml Enema GA 02/06/25 10:13 DAILY PRN Constipation Ferrous Sulfate 324 mg 02/07/24 09:30 02/09/24 09:17 Ferrous Sulfate 324 Mg Tablet.Dr PO 02/06/25 09:29 324 mg BID REVA Administration Furosemide 80 mg 02/05/24 16:00 02/09/24 16:49 Furosemide 80 Mg Tablet PO 02/04/25 15:59 80 mg BID@0800,1600 REVA Administration Glucose 0 gm 02/03/24 21:24 Dextrose 40% Gel 15 Gm Tube PO 02/02/25 21:23 PRN PRN Hypoglycemia Heparin Sodium (Porcine) 5,000 unit 02/04/24 21:00 02/09/24 09:15 Heparin 5,000 Unit/Ml Vial SUBCUT 02/03/25 20:59 Not Given Q12HR REVA Insulin Aspart 0 units 02/03/24 22:00 02/09/24 16:47 Insulin Aspart 300 Units/3 Ml Insuln.Pen SUBCUT 02/02/25 21:59 2 units TID.WM.HS REVA Administration Protocol Levothyroxine Sodium 100 mcg 02/04/24 06:30 02/09/24 05:38 Levothyroxine 100 Mcg Tablet PO 02/03/25 06:29 100 mcg DAILY.0630 REVA Administration Melatonin 3 mg 02/07/24 22:00 02/08/24 21:08 Melatonin 3 Mg Tablet PO 02/06/25 21:59 3 mg QHS REVA Administration Metoprolol Succinate 50 mg 02/04/24 09:00 02/09/24 09:18 Metoprolol Succinate 50 Mg Tab.Er.24h PO 02/03/25 08:59 50 mg DAILY REVA Administration Naloxone HCl 0.1 mg 02/03/24 21:19 Naloxone Hcl 0.4 Mg/Ml Vial IV-PUSH 02/02/25 21:18 Q2M PRN Opioid Reversal Nitroglycerin 0.4 mg 02/03/24 22:54 Nitroglycerin 0.4 Mg Tab.Subl SUBLINGUAL 02/02/25 22:53 Q5MIN.X3 PRN chest pain Ondansetron HCl 4 mg 02/03/24 21:19 Ondansetron 4 Mg/2 Ml Vial IV-PUSH 02/02/25 21:18 Q6H PRN Nausea And Vomiting Ondansetron HCl 4 mg 02/04/24 13:07 Ondansetron 4 Mg/2 Ml Vial IV-PUSH 02/03/25 13:06 Q6H PRN Nausea/Vomiting Oxycodone HCl 5 mg 02/03/24 21:19 02/09/24 05:47 Oxycodone Ir 5 Mg Tablet PO 5 mg Q6HR PRN Administration Pain Scale 4 - 7 Pantoprazole Sodium 40 mg 02/04/24 09:00 02/09/24 09:18 Pantoprazole 40 Mg Tablet. PO 02/03/25 08:59 40 mg BID REVA Administration Polyethylene Glycol 17 gm 02/07/24 10:45 02/09/24 09:18 Polyethylene Glycol 3350 17 Gm Powd.Pack PO 02/06/25 10:44 17 gm DAILY REVA Administration Sennosides 2 tab 02/03/24 22:00 02/08/24 21:08 Sennosides 8.6 Mg Tablet PO 02/02/25 21:59 2 tab HS REVA Administration Sodium Chloride 0 ml 02/03/24 22:00 02/09/24 16:49 Sodium Chloride 0.9 % 10 Ml Syringe IV-PUSH 02/02/25 21:59 10 ml QSHIFT REVA Administration A&P - Hospitalist Assessment/Plan (1) Left hip pain: (2) Closed displaced fracture of left femoral neck: (3) Hypertension: (4) Diabetes mellitus, type 2: (5) Chronic kidney disease, stage IV (severe): (6) PAD (peripheral artery disease): (7) Peripheral vascular disease: (8) Hyperlipidemia: (9) Coronary artery disease: Plan Close displaced fracture of the left more neck s/p left hemiarthroplasty 02/04 -further plan of care per orthopedic surgeon -therapy. Denied inpatient rehab. CM working to find SNF CKD4?patient reports that he was scheduled to plan dialysis outpatient -Creatinine, stable, still making good urinary output, trend labs Chronic conditions: 1. HTN/ A-fib, CAD, HLD- metoprolol, amiodarone, furosemide, amlodipine, ASA, clopidogrel, atorvastatin 2. T2DM- fingersticks ACHS, SSIC, home glimepiride on hold. follow Blood sugars, 6.2 A1c 3. Hypothyroidism- levothyroxine Documented By: Lena Spencer APRN 01/12 04/06 1300 Signed By: <Electronically signed by CHIDI Spencer> 02/09/24 1739 <Electronically signed by Mere Nelson MD> 02/10/24 0647 [facility] Work Phone: 1(305) 524-622707-29-2024 Progress note Author Mere Nelson [facility] February 09, 2024 2:44pm Note Date/Time February 08, 2024 10:1 6am [facility] [address] [place] [address] Hospitalist Progress Note Signed Patient: Apolinar Norman MR#: [id number] 57 : 1940 Acct:[id number] Age/Sex: 84 / M Adm Date: 4 Loc: 4N Room: [address] [place] [address] Type: ADM IN Attending Dr: Mere Nelson MD Copies to: ~ Date of Service: 02/08/2024 Subjective Subjective Narrative: Patient seen and examined at bedside, out of bed and sitting in chair, continuesto ambulate well in the room and in the hallway. Pain is well-controlled.No diarrhea remains medically stable, awaiting placement. Exam Physical Exam Vital Signs: Temp Pulse Resp BP Pulse Ox O2 Del Method O2 Flow Rate 97.8 F 80 18 147/69 H 92 L Room Air 0 02/08/24 07:21 02/08/24 07:21 02/08/24 07:21 02/08/24 07:21 02/08/24 07:21 02/08/24 07:21 02/05/24 08:40 Narrative: CONST-alert, awake resting comfortably in bed CARDIAC?bradycardia, irregular rhythm, normal S1 & S2. PULM-diminished without wheeze or rhonchi, RA, no accessory muscle use or cough noted ABD - Soft. Bowel sounds are normal. No distention No tenderness EXTREM-no edema BLE calves nontender. Left hip tenderness SKIN-incision site occluded with dressing Objective Lab Results 02/07/24 11:32 02/07/24 11:32 Meds Allergies and Active Meds Allergies levofloxacin Allergy (Verified 12/09/23 08:48) Rash Penicillins Allergy (Verified 12/09/23 08:48) Swelling, rash Active Meds: Active Medications Generic Name Dose Route Start Last Admin Trade Name Freq PRN Reason Stop Dose Admin Acetaminophen 1,000 mg 02/03/24 21:19 02/05/24 01:22 Acetaminophen 500 Mg Tablet PO 02/02/25 21:18 1,000 mg Q6HR PRN Administration Pain Scale 1 - 3 or fever Acetaminophen 1,000 mg 02/04/24 13:07 Acetaminophen 500 Mg Tablet PO 02/03/25 13:06 Q8H PRN Fever or Pain Amiodarone HCl 200 mg 02/03/24 23:00 02/07/24 21:18 Amiodarone 200 Mg Tablet PO 02/02/25 22:59 200 mg QPM REVA Administration Amlodipine Besylate 10 mg 02/08/24 09:10 Amlodipine 10 Mg Tablet PO 02/07/25 09:09 DAILY REVA Aspirin 81 mg 02/05/24 09:00 02/08/24 08:16 Aspirin 81 Mg Tablet. PO 02/04/25 08:59 81 mg DAILY REVA Administration Atorvastatin Calcium 80 mg 02/04/24 22:00 02/07/24 21:19 Atorvastatin 80 Mg Tablet PO 02/03/25 21:59 80 mg QHS REVA Administration Clopidogrel Bisulfate 75 mg 02/07/24 12:45 02/08/24 08:17 Clopidogrel Bisulfate 75 Mg Tablet PO 02/06/25 12:44 75 mg DAILY REVA Administration Dextrose 0 gm 02/03/24 21:24 Dextrose 50% In Water 25 Gm/50 Ml Syringe IV-PUSH 02/02/25 21:23 PRN PRN Hypoglycemia Diphenhydramine HCl 25 mg 02/04/24 13:07 Diphenhydramine 25 Mg Capsule PO 02/03/25 13:06 Q6H PRN Itching Docusate Sodium 100 mg 02/03/24 21:19 Docusate 100 Mg Capsule PO 02/02/25 21:18 BID PRN Constipation Docusate Sodium 100 mg 02/04/24 21:00 02/08/24 08:17 Docusate 100 Mg Capsule PO 02/03/25 20:59 100 mg BID REVA Administration Docusate Sodium 283 mg 02/07/24 10:14 Docusate Enema 283 Mg/5 Ml Enema GA 02/06/25 10:13 DAILY PRN Constipation Ferrous Sulfate 324 mg 02/07/24 09:30 02/08/24 08:17 Ferrous Sulfate 324 Mg Tablet.Dr PO 02/06/25 09:29 324 mg BID REVA Administration Furosemide 80 mg 02/05/24 16:00 02/08/24 08:17 Furosemide 80 Mg Tablet PO 02/04/25 15:59 80 mg BID@0800,1600 REVA Administration Glucose 0 gm 02/03/24 21:24 Dextrose 40% Gel 15 Gm Tube PO 02/02/25 21:23 PRN PRN Hypoglycemia Heparin Sodium (Porcine) 5,000 unit 02/04/24 21:00 02/07/24 21:18 Heparin 5,000 Unit/Ml Vial SUBCUT 02/03/25 20:59 5,000 unit Q12HR REVA Administration Insulin Aspart 0 units 02/03/24 22:00 02/08/24 08:17 Insulin Aspart 300 Units/3 Ml Insuln.Pen SUBCUT 02/02/25 21:59 2 units TID.WM.HS REVA Administration Protocol Levothyroxine Sodium 100 mcg 02/04/24 06:30 02/08/24 05:48 Levothyroxine 100 Mcg Tablet PO 02/03/25 06:29 100 mcg DAILY.0630 REVA Administration Melatonin 3 mg 02/07/24 22:00 02/07/24 21:19 Melatonin 3 Mg Tablet PO 02/06/25 21:59 3 mg QHS REVA Administration Metoprolol Succinate 50 mg 02/04/24 09:00 02/08/24 08:17 Metoprolol Succinate 50 Mg Tab.Er.24h PO 02/03/25 08:59 50 mg DAILY REVA Administration Naloxone HCl 0.1 mg 02/03/24 21:19 Naloxone Hcl 0.4 Mg/Ml Vial IV-PUSH 02/02/25 21:18 Q2M PRN Opioid Reversal Nitroglycerin 0.4 mg 02/03/24 22:54 Nitroglycerin 0.4 Mg Tab.Subl SUBLINGUAL 02/02/25 22:53 Q5MIN.X3 PRN chest pain Ondansetron HCl 4 mg 02/03/24 21:19 Ondansetron 4 Mg/2 Ml Vial IV-PUSH 02/02/25 21:18 Q6H PRN Nausea And Vomiting Ondansetron HCl 4 mg 02/04/24 13:07 Ondansetron 4 Mg/2 Ml Vial IV-PUSH 02/03/25 13:06 Q6H PRN Nausea/Vomiting Oxycodone HCl 5 mg 02/03/24 21:19 02/08/24 08:17 Oxycodone Ir 5 Mg Tablet PO 5 mg Q6HR PRN Administration Pain Scale 4 - 7 Pantoprazole Sodium 40 mg 02/04/24 09:00 02/08/24 08:17 Pantoprazole 40 Mg Tablet. PO 02/03/25 08:59 40 mg BID REVA Administration Polyethylene Glycol 17 gm 02/07/24 10:45 02/08/24 08:18 Polyethylene Glycol 3350 17 Gm Powd.Pack PO 02/06/25 10:44 17 gm DAILY REVA Administration Sennosides 2 tab 02/03/24 22:00 02/07/24 21:19 Sennosides 8.6 Mg Tablet PO 02/02/25 21:59 2 tab HS REVA Administration Sodium Chloride 0 ml 02/03/24 22:00 02/08/24 05:48 Sodium Chloride 0.9 % 10 Ml Syringe IV-PUSH 02/02/25 21:59 10 ml QSHIFT REVA Administration A&P - Hospitalist Assessment/Plan (1) Left hip pain: (2) Closed displaced fracture of left femoral neck: (3) Hypertension: (4) Diabetes mellitus, type 2: (5) Chronic kidney disease, stage IV (severe): (6) PAD (peripheral artery disease): (7) Peripheral vascular disease: (8) Hyperlipidemia: (9) Coronary artery disease: Plan Close displaced fracture of the left more neck * POD #4, status post left hip hemiarthroplasty * Continue plan of care per orthopedic surgeon * PT/OT recommending acute inpatient rehabilitation * DVT prophylaxis, on heparin * Continue pain management as needed Chronic kidney disease stage IV?patient reports that he was scheduled to plan dialysis outpatient * Creatinine, stable, still making good urinary output * Continue to monitor BMP and avoid nephrotoxins Chronic conditions: 1.HTN/ A-fib- on metoprolol, amiodarone, furosemide. Blood pressure unc, ontrolled, will add amlodipine 2.T2DM- fingersticks ACHS, SSIC, home glimepiride on hold. Blood sugars, check A1c 3.Hypothyroidism- levothyroxine 4.CAD- low dose aspirin, clopidogrel on hold, will restart when okay with orthopedics 5.HLD- atorvastatin 6.BLE edema- furosemide CODE STATUS-DNR CCA without intubation Discharge disposition: Awaiting placement to inpatient rehabilitation. Documented By: Mehnaz Gambino APRN 02/08/24 1016 Signed By: <Electronically signed by CHIDI Gambino> 02/08/24 1310 <Electronically signed by Mere Nelson MD> 02/09/24 3946 [facility] Work Phone: 1(624) 990-996707-28-2024 Progress note Author Mere Nelson [facility] February 08, 2024 7:11am Note Date/Time February 07, 2024 10:0 4am [facility] [address] [place] [address] Hospitalist Progress Note Signed Patient: Apolinar Norman MR#: [id number] [birth year] : 1940 Acct:[id number] Age/Sex: 84 / M Adm Date: 4 Loc: 4N Room: [address] [place] [address] Type: ADM IN Attending Dr: Mere Nelson MD Copies to: ~ Date of Service: 02/07/2024 Subjective Subjective Narrative: Patient seen and examined at bedside, reports that he was unable to sleep well at night. Out of bed and sitting in chair, he denies having any pain. Slightlybradycardic this morning, denies any symptoms. No nausea/vomiting, remains afebrile. Medically stable awaiting for placement Exam Physical Exam Vital Signs: Temp Pulse Resp BP Pulse Ox O2 Del Method O2 Flow Rate 98.8 F 47 L 12 129/56 L 93 L Room Air 0 02/07/24 08:05 02/07/24 08:05 02/07/24 08:05 02/07/24 08:05 02/07/24 08:05 02/07/24 08:05 02/05/24 08:40 Narrative: CONST-alert, awake resting comfortably in bed CARDIAC?bradycardia, irregular rhythm, normal S1 & S2. PULM-diminished without wheeze or rhonchi, RA, no accessory muscle use or cough noted ABD - Soft. Bowel sounds are normal. No distention No tenderness EXTREM-no edema BLE calves nontender. Left hip tenderness SKIN-incision site occluded with dressing Objective Lab Results 02/06/24 05:52 02/06/24 05:52 Meds Allergies and Active Meds Allergies levofloxacin Allergy (Verified 12/09/23 08:48) Rash Penicillins Allergy (Verified 12/09/23 08:48) Swelling, rash Active Meds: Active Medications Generic Name Dose Route Start Last Admin Trade Name Freq PRN Reason Stop Dose Admin Acetaminophen 1,000 mg 02/03/24 21:19 02/05/24 01:22 Acetaminophen 500 Mg Tablet PO 02/02/25 21:18 1,000 mg Q6HR PRN Administration Pain Scale 1 - 3 or fever Acetaminophen 1,000 mg 02/04/24 13:07 Acetaminophen 500 Mg Tablet PO 02/03/25 13:06 Q8H PRN Fever or Pain Amiodarone HCl 200 mg 02/03/24 23:00 02/06/24 20:24 Amiodarone 200 Mg Tablet PO 02/02/25 22:59 200 mg QPM REVA Administration Aspirin 81 mg 02/05/24 09:00 02/07/24 08:16 Aspirin 81 Mg Tablet.Dr GROSS 02/04/25 08:59 81 mg DAILY REVA Administration Atorvastatin Calcium 80 mg 02/04/24 22:00 02/06/24 22:31 Atorvastatin 80 Mg Tablet PO 02/03/25 21:59 Not Given QHS REVA Dextrose 0 gm 02/03/24 21:24 Dextrose 50% In Water 25 Gm/50 Ml Syringe IV-PUSH 02/02/25 21:23 PRN PRN Hypoglycemia Diphenhydramine HCl 25 mg 02/04/24 13:07 Diphenhydramine 25 Mg Capsule PO 02/03/25 13:06 Q6H PRN Itching Docusate Sodium 100 mg 02/03/24 21:19 Docusate 100 Mg Capsule PO 02/02/25 21:18 BID PRN Constipation Docusate Sodium 100 mg 02/04/24 21:00 02/07/24 08:16 Docusate 100 Mg Capsule PO 02/03/25 20:59 100 mg BID REVA Administration Ferrous Sulfate 324 mg 02/07/24 09:30 Ferrous Sulfate 324 Mg Tablet.Dr PO 02/06/25 09:29 BID REVA Furosemide 80 mg 02/05/24 16:00 02/07/24 08:16 Furosemide 80 Mg Tablet PO 02/04/25 15:59 80 mg BID@0800,1600 REVA Administration Glucose 0 gm 02/03/24 21:24 Dextrose 40% Gel 15 Gm Tube PO 02/02/25 21:23 PRN PRN Hypoglycemia Heparin Sodium (Porcine) 5,000 unit 02/04/24 21:00 02/07/24 08:16 Heparin 5,000 Unit/Ml Vial SUBCUT 02/03/25 20:59 5,000 unit Q12HR REVA Administration Hydromorphone HCl 0.5 mg 02/03/24 21:19 02/04/24 08:36 Hydromorphone 0.5 Mg/0.5 Ml Syringe IV-PUSH 0.5 mg Q4H PRN Administration Pain Scale 8 - 10 Insulin Aspart 0 units 02/03/24 22:00 02/07/24 08:16 Insulin Aspart 300 Units/3 Ml Insuln.Pen SUBCUT 02/02/25 21:59 Not Given TID.WM.HS COUNTS INCLUDE 234 BEDS AT THE [facility] Protocol Levothyroxine Sodium 100 mcg 02/04/24 06:30 02/07/24 06:08 Levothyroxine 100 Mcg Tablet PO 02/03/25 06:29 100 mcg DAILY.0630 REVA Administration Metoprolol Succinate 50 mg 02/04/24 09:00 02/07/24 08:16 Metoprolol Succinate 50 Mg Tab.Er.24h PO 02/03/25 08:59 50 mg DAILY REVA Administration Naloxone HCl 0.1 mg 02/03/24 21:19 Naloxone Hcl 0.4 Mg/Ml Vial IV-PUSH 02/02/25 21:18 Q2M PRN Opioid Reversal Nitroglycerin 0.4 mg 02/03/24 22:54 Nitroglycerin 0.4 Mg Tab.Subl SUBLINGUAL 02/02/25 22:53 Q5MIN.X3 PRN chest pain Ondansetron HCl 4 mg 02/03/24 21:19 Ondansetron 4 Mg/2 Ml Vial IV-PUSH 02/02/25 21:18 Q6H PRN Nausea And Vomiting Ondansetron HCl 4 mg 02/04/24 13:07 Ondansetron 4 Mg/2 Ml Vial IV-PUSH 02/03/25 13:06 Q6H PRN Nausea/Vomiting Oxycodone HCl 5 mg 02/03/24 21:19 02/06/24 20:23 Oxycodone Ir 5 Mg Tablet PO 5 mg Q6HR PRN Administration Pain Scale 4 - 7 Pantoprazole Sodium 40 mg 02/04/24 09:00 02/07/24 08:16 Pantoprazole 40 Mg Tablet.Dr PO 02/03/25 08:59 40 mg BID REVA Administration Sennosides 2 tab 02/03/24 22:00 02/06/24 22:31 Sennosides 8.6 Mg Tablet PO 02/02/25 21:59 Not Given HS REVA Sodium Chloride 0 ml 02/03/24 22:00 02/07/24 06:08 Sodium Chloride 0.9 % 10 Ml Syringe IV-PUSH 02/02/25 21:59 10 ml QSHIFT REVA Administration A&P - Hospitalist Assessment/Plan (1) Left hip pain: (2) Closed displaced fracture of left femoral neck: (3) Hypertension: (4) Diabetes mellitus, type 2: (5) Chronic kidney disease, stage IV (severe): (6) PAD (peripheral artery disease): (7) Peripheral vascular disease: (8) Hyperlipidemia: (9) Coronary artery disease: Plan Close displaced fracture of the left more neck * POD #3, status post left hip hemiarthroplasty * Continue plan of care per orthopedic surgeon * PT/OT recommending acute inpatient rehabilitation * DVT prophylaxis, on heparin * Continue pain management as needed Chronic kidney disease stage IV?patient reports that he was scheduled to plan dialysis outpatient * Creatinine, stable, still making good urinary output * Continue to monitor BMP and avoid nephrotoxins Chronic conditions: 1.HTN/ A-fib- on metoprolol, amiodarone, furosemide, Slightly bradycardic this morning. Asymptomatic 2.T2DM- fingersticks ACHS, SSIC, hold glyburide 3.Hypothyroidism- levothyroxine 4.CAD- low dose aspirin, clopidogrel on hold, will restart when okay with orthopedics 5.HLD- atorvastatin 6.BLE edema- furosemide CODE STATUS-DNR CCA without intubation Documented By: Mehnaz Gambino APRN 02/07/24 1002 Signed By: <Electronically signed by CHIDI Gamibno> 02/07/24 1013 <Electronically signed by Mere Nelson MD> 02/08/24 0711 [facility] Work Phone: 1([phone]) 518-332007-27-2024 Progress note Author Zion Oneal [facility] February 07, 2024 10:12am Note Date/Time February 07, 2024 10:1 2am [facility] [address] [place] [address] Orthopedic Progress Note Signed Patient: Apolinar Norman MR#: [id number] [birth year] : 1940 Acct:[id number] Age/Sex: 84 / M Adm Date: 4 Loc: 4N Room: [id number] Type: ADM IN Attending Dr: Mere Nelson MD Copies to: ~ Date of Service: 02/07/2024 Exam Physical Exam Vital Signs: Temp Pulse Resp BP Pulse Ox O2 Del Method O2 Flow Rate 98.8 F 47 L 12 129/56 L 93 L Room Air 0 02/07/24 08:05 02/07/24 08:05 02/07/24 08:05 02/07/24 08:05 02/07/24 08:05 02/07/24 08:05 02/05/24 08:40 Narrative: Patient is alert and oriented with no specific complaints. The wound is clean and dry. The calf and thigh are nontender with no evidence of DVT. The leg is neurovascularly intact. Patient is able to move the ankle and toes without difficulty. Objective Labs Labs: Laboratory Results - last 24 hr 02/06/24 02/06/24 02/06/24 05:52 05:52 05:52 POC Glucose POC Glucose Comment Iron 31 L Cancelled TIBC 253 L Cancelled Iron Saturation 12.3 L Transferrin Ferritin Vitamin B12 Folate 02/06/24 02/06/24 02/06/24 05:52 05:52 05:52 POC Glucose POC Glucose Comment Iron TIBC Iron Saturation Cancelled Transferrin 181 L Cancelled Ferritin 247.6 Cancelled Vitamin B12 207 Folate 02/06/24 02/06/24 02/06/24 05:52 05:52 20:52 POC Glucose 181 POC Glucose Comment Iron TIBC Iron Saturation Transferrin Ferritin Vitamin B12 Cancelled Folate 6.1 Cancelled 02/07/24 08:06 POC Glucose 141 POC Glucose Comment Glu2: cleaned meter Iron TIBC Iron Saturation Transferrin Ferritin Vitamin B12 Folate Assessment / Plan Assessment and plan (1) Closed displaced fracture of left femoral neck: Code(s): S72.002A - Fracture of unspecified part of neck of left femur, initial encounterfor closed fracture Plan Progressing well. Hopeful discharge to extended-care facility Documented By: Zion Oneal MD 02/07/24 0907 Signed By: <Electronically signed by MD Zion Oneal> 02/07/24 1012 [facility] Work Phone: 1(494) 467-657307-27-2024 Progress note Author Mere Nelson [facility] February 07, 2024 6:50am Note Date/Time February 06, 2024 11:2 4am [facility] [address] [place] [address] Hospitalist Progress Note Signed Patient: Apolinar Norman MR#: [id number] [birth year] : 1940 Acct:[id number] Age/Sex: 84 / M Adm Date: 4 Loc: Room: [address] [place] [address] Type: ADM IN Attending Dr: Mere Nelson MD Copies to: ~ Date of Service: 02/06/2024 Subjective Subjective Narrative: Patient seen and examined at bedside, resting comfortably in bed. On room air with SpO2 above 90%. Was out of bed and sitting in chair, tolerated that well and pain is well-controlled. No nausea/vomiting tolerating diet well. No feveror chills. Exam Physical Exam Vital Signs: Temp Pulse Resp BP Pulse Ox O2 Del Method O2 Flow Rate 97.6 F 60 17 152/69 H 92 L Room Air 0 02/06/24 07:49 02/06/24 07:49 02/06/24 07:49 02/06/24 07:49 02/06/24 07:49 02/06/24 08:00 02/05/24 08:40 Narrative: CONST-alert, awake resting comfortably in bed CARDIAC-normal rate, regular rhythm, normal S1 & S2. PULM-diminished without wheeze or rhonchi, RA, no accessory muscle use or cough noted ABD - Soft. Bowel sounds are normal. No distention No tenderness EXTREM-no edema BLE calves nontender. Left hip tenderness SKIN-incision site occluded with dressing Objective Lab Results 02/06/24 05:52 02/06/24 05:52 Meds Allergies and Active Meds Allergies levofloxacin Allergy (Verified 12/09/23 08:48) Rash Penicillins Allergy (Verified 12/09/23 08:48) Swelling, rash Active Meds: Active Medications Generic Name Dose Route Start Last Admin Trade Name Freq PRN Reason Stop Dose Admin Acetaminophen 1,000 mg 02/03/24 21:19 02/05/24 01:22 Acetaminophen 500 Mg Tablet PO 02/02/25 21:18 1,000 mg Q6HR PRN Administration Pain Scale 1 - 3 or fever Acetaminophen 1,000 mg 02/04/24 13:07 Acetaminophen 500 Mg Tablet PO 02/03/25 13:06 Q8H PRN Fever or Pain Amiodarone HCl 200 mg 02/03/24 23:00 02/05/24 21:33 Amiodarone 200 Mg Tablet PO 02/02/25 22:59 200 mg QPM REVA Administration Aspirin 81 mg 02/05/24 09:00 02/06/24 10:30 Aspirin 81 Mg Tablet. PO 02/04/25 08:59 81 mg DAILY REVA Administration Atorvastatin Calcium 80 mg 02/04/24 22:00 02/05/24 21:32 Atorvastatin 80 Mg Tablet PO 02/03/25 21:59 80 mg QHS REVA Administration Dextrose 0 gm 02/03/24 21:24 Dextrose 50% In Water 25 Gm/50 Ml Syringe IV-PUSH 02/02/25 21:23 PRN PRN Hypoglycemia Diphenhydramine HCl 25 mg 02/04/24 13:07 Diphenhydramine 25 Mg Capsule PO 02/03/25 13:06 Q6H PRN Itching Docusate Sodium 100 mg 02/03/24 21:19 Docusate 100 Mg Capsule PO 02/02/25 21:18 BID PRN Constipation Docusate Sodium 100 mg 02/04/24 21:00 02/06/24 10:30 Docusate 100 Mg Capsule PO 02/03/25 20:59 100 mg BID REVA Administration Furosemide 80 mg 02/05/24 16:00 02/06/24 10:37 Furosemide 80 Mg Tablet PO 02/04/25 15:59 80 mg BID@0800,1600 REVA Administration Glucose 0 gm 02/03/24 21:24 Dextrose 40% Gel 15 Gm Tube PO 02/02/25 21:23 PRN PRN Hypoglycemia Heparin Sodium (Porcine) 5,000 unit 02/04/24 21:00 02/06/24 10:29 Heparin 5,000 Unit/Ml Vial SUBCUT 02/03/25 20:59 5,000 unit Q12HR REVA Administration Hydromorphone HCl 0.5 mg 02/03/24 21:19 02/04/24 08:36 Hydromorphone 0.5 Mg/0.5 Ml Syringe IV-PUSH 0.5 mg Q4H PRN Administration Pain Scale 8 - 10 Insulin Aspart 0 units 02/03/24 22:00 02/06/24 10:31 Insulin Aspart 300 Units/3 Ml Insuln.Pen SUBCUT 02/02/25 21:59 Not Given TID.WM.HS REVA Protocol Levothyroxine Sodium 100 mcg 02/04/24 06:30 02/06/24 05:42 Levothyroxine 100 Mcg Tablet PO 02/03/25 06:29 100 mcg DAILY.0630 REVA Administration Metoprolol Succinate 50 mg 02/04/24 09:00 02/06/24 10:30 Metoprolol Succinate 50 Mg Tab.Er.24h PO 02/03/25 08:59 50 mg DAILY REVA Administration Naloxone HCl 0.1 mg 02/03/24 21:19 Naloxone Hcl 0.4 Mg/Ml Vial IV-PUSH 02/02/25 21:18 Q2M PRN Opioid Reversal Nitroglycerin 0.4 mg 02/03/24 22:54 Nitroglycerin 0.4 Mg Tab.Subl SUBLINGUAL 02/02/25 22:53 Q5MIN.X3 PRN chest pain Ondansetron HCl 4 mg 02/03/24 21:19 Ondansetron 4 Mg/2 Ml Vial IV-PUSH 02/02/25 21:18 Q6H PRN Nausea And Vomiting Ondansetron HCl 4 mg 02/04/24 13:07 Ondansetron 4 Mg/2 Ml Vial IV-PUSH 02/03/25 13:06 Q6H PRN Nausea/Vomiting Oxycodone HCl 5 mg 02/03/24 21:19 02/05/24 20:03 Oxycodone Ir 5 Mg Tablet PO 5 mg Q6HR PRN Administration Pain Scale 4 - 7 Pantoprazole Sodium 40 mg 02/04/24 09:00 02/06/24 10:30 Pantoprazole 40 Mg Tablet.Dr PO 02/03/25 08:59 40 mg BID REVA Administration Sennosides 2 tab 02/03/24 22:00 02/05/24 21:32 Sennosides 8.6 Mg Tablet PO 02/02/25 21:59 2 tab HS REVA Administration Sodium Chloride 0 ml 02/03/24 22:00 02/06/24 05:42 Sodium Chloride 0.9 % 10 Ml Syringe IV-PUSH 02/02/25 21:59 5 ml QSHIFT REVA Administration A&P - Hospitalist Assessment/Plan (1) Left hip pain: (2) Closed displaced fracture of left femoral neck: (3) Hypertension: (4) Diabetes mellitus, type 2: (5) Chronic kidney disease, stage IV (severe): (6) PAD (peripheral artery disease): (7) Peripheral vascular disease: (8) Hyperlipidemia: (9) Coronary artery disease: Plan Close displaced fracture of the left more neck * POD #2, status post left hip hemiarthroplasty * Continue plan of care per orthopedic surgeon * PT/OT recommending acute inpatient rehabilitation * DVT prophylaxis, on heparin * Continue pain management as needed Chronic kidney disease stage IV?patient reports that he was scheduled to plan dialysis outpatient * Creatinine, stable, still making good urinary output * Continue to monitor BMP and avoid nephrotoxins Chronic conditions: 1.HTN/ A-fib- on metoprolol, amiodarone 2.T2DM- fingersticks ACHS, SSIC, hold glyburide 3.Hypothyroidism- levothyroxine 4.CAD- low dose aspirin, clopidogrel on hold, will restart when okay with orthopedics 5.HLD- atorvastatin 6.BLE edema- furosemide CODE STATUS-DNR CCA without intubation Documented By: Mehnaz Gambino APRN 02/06/24 1122 Signed By: <Electronically signed by CHIDI Gambino> 02/06/24 1318 <Electronically signed by Mere Nelson MD> 02/07/24 0650 [facility] Work Phone: 1(893) 241-173707-26-2024 Progress note Author Zion Oneal [facility] February 06, 2024 11:39am Note Date/Time February 06, 2024 11:3 9am [facility] [address] [place] [address] Orthopedic Progress Note Signed Patient: Apolinar Norman MR#: [id number] [birth year] : 1940 Acct:[id number] Age/Sex: 84 / M Adm Date: 4 Loc: Room: [address] [place] [address] Type: ADM IN Attending Dr: Mere Nelson MD Copies to: ~ Date of Service: 02/06/2024 Exam Physical Exam Vital Signs: Temp Pulse Resp BP Pulse Ox O2 Del Method O2 Flow Rate 97.6 F 60 17 152/69 H 92 L Room Air 0 02/06/24 07:49 02/06/24 07:49 02/06/24 07:49 02/06/24 07:49 02/06/24 07:49 02/06/24 08:00 02/05/24 08:40 Narrative: Patient is alert and oriented with no specific complaints. The wound is clean and dry. The calf and thigh are nontender with no evidence of DVT. The leg is neurovascularly intact. Patient is able to move the ankle and toes without difficulty. Objective Labs Labs: Laboratory Results - last 24 hr 02/05/24 02/06/24 20:34 05:52 Corrected WBC 12.1 H Uncorrected WBC Count 12.1 H RBC 3.26 L Hgb 10.8 L Hct 31.9 L MCV 97.9 MCH 33.0 MCHC 33.7 RDW 13.8 Plt Count 120 L MPV 10.4 H Neut % (Auto) 84.4 Lymph % (Auto) 6.1 [place] % (Auto) 7.3 Eos % (Auto) 1.9 Baso % (Auto) 0.3 Nucleat RBC Rel Count 0.0 Neut # (Auto) 10.2 H Lymph # (Auto) 0.7 L [place] # (Auto) 0.9 H Eos # (Auto) 0.2 Baso # (Auto) 0.0 PHA Creatinine Clear 17.99 Sodium 140 Potassium 4.2 Chloride 104 Carbon Dioxide 25.4 Anion Gap 14.8 BUN 69 H Creatinine 3.54 H Est GFR (CKD-EPI) 16.382 Glucose 105 H POC Glucose 153 Calcium 8.5 L Assessment / Plan Assessment and plan (1) Closed displaced fracture of left femoral neck: Code(s): S72.002A - Fracture of unspecified part of neck of left femur, initial encounterfor closed fracture Plan 1. Progressive ambulation as tolerated. 2. [place] out 14 days postop 3. Obtain left hip x-rays 7 days postop and have these sent to our office. Documented By: Zion Oneal MD 02/06/24 1033 Signed By: <Electronically signed by MD Zion Oneal> 02/06/24 1133 [facility] Work Phone: 1(772) 594-432607-25-2024 Consult note Author Artis Ugarte [facility] February 05, 2024 1:03pm Note Date/Time February 05, 2024 10:1 7am [facility] [address] [place] [address] Physiatry (Rehab) Consult Note Signed Patient: Apolinar Norman MR#: [id number] [birth year] : 1940 Acct:[id number] Age/Sex: 84 / M Adm Date: 4 Loc: Room: [address] [place] [address] Type: ADM IN Attending Dr: Mere Nelson MD Copies to: MD Justo Goel II, MD Mazhar Rahman, MD~ HPI Consult Date: 02/05/24 Requesting Physician: Mere Nelson MD Primary Care Provider: Justo Cameron II, MD Consult Narrative Reason for consult: Evaluation for inpatient rehab HPI: Mr. Norman is a 84 year old male with PMH type 2 diabetes, peripheral vascular disease, chronic kidney disease, CAD status post CABG and stents who was transferred from [facility] following a mechanical fall with findings of a left displaced femoral neck fracture. The patient is now s/p left hemiarthroplasty. The patient lives at home with his grandson. Lives in a single level home with 2 steps to enter. Independent. PM&R was consulted for evaluation for inpatient rehab. Patient seen and evaluated today. Sitting up in recliner. In no distress. He denies any chest pain, SOB, fever, chills. States that pain is well controlled. Review of Systems Review of Systems All other systems reviewed & are negative unless noted below or in HPI [facility] Medical History (Updated 02/05/24 @ 12:58 by Artis Ugarte MD) Orthostatic hypotension Former smoker COPD (chronic obstructive pulmonary disease) Chronic kidney disease (CKD) Hypothyroidism Skin cancer Arthritis GERD (gastroesophageal reflux disease) Diabetes mellitus, type 2 Peripheral vascular disease Myocardial infarct Hypertension Hyperlipidemia Coronary artery disease Pacemaker Surgical History (Updated 02/03/24 @ 21:24 by Yovana Tian RN) S/P arteriovenous (AV) fistula creation S/P cardiac pacemaker procedure H/O bursectomy elbow History of cardiac catheterization 2020 History of vascular surgery PVD-stents in legs 2010 History of phacoemulsification of cataract of both eyes with intraocular lens implantation S/P colonoscopic polypectomy Stented coronary artery S/P CABG (coronary artery bypass graft) Family History Father Diabetes CHF (congestive heart failure) Kidney failure Hernia Mother Diverticulitis Brother Cancer Daughter Heart disease Hypertension Diabetes Daughter Motor vehicle accident Social History Smoking Status: Former smoker (quit in 1982) Tobacco Type: cigarettes Substance Use Type: Alcohol (reports one beer daily) Social History Comments: lives with 20 year old grandson Meds Medications and Allergies Allergies levofloxacin Allergy (Verified 12/09/23 08:48) Rash Penicillins Allergy (Verified 12/09/23 08:48) Swelling, rash Home Medications ascorbic acid (vitamin C) 500 mg tablet (Vitamin C) 1,000 mg PO DAILY 04/24/21 [History Confirmed 02/04/24] aspirin 81 mg tablet,delayed release 81 mg PO DAILY 04/24/21 [History Confirmed 02/04/24] atorvastatin 80 mg tablet 80 mg PO QHS 04/24/21 [History Confirmed 02/03/24] clopidogrel 75 mg tablet 75 mg PO DAILY 04/24/21 [History Confirmed 02/04/24] glyburide 1.25 mg tablet 1.25 mg PO QAM DM 04/24/21 [History Confirmed 02/03/24] levothyroxine 100 mcg tablet 100 mcg PO QAM 04/24/21 [History Confirmed 02/03/24] amiodarone 200 mg tablet 200 mg PO QPM 02/10/22 [History Confirmed 02/04/24] omeprazole 40 mg capsule,delayed release 40 mg PO QPM 02/10/22 [History Confirmed 02/03/24] cholecalciferol (vitamin D3) 25 mcg (1,000 unit) capsule (Vitamin D3) 25 mcg PO DAILY 09/17/23 [History Confirmed 02/03/24] metoprolol succinate 50 mg tablet,extended release 24 hr 50 mg PO DAILY 11/03/23[History Confirmed 02/04/24] furosemide 40 mg tablet (Lasix) 80 mg PO BID 02/03/24 [History Confirmed 02/04/24] nitroglycerin 0.4 mg sublingual tablet 0.4 mg sublingual Q5-15M PRN chest pain 02/03/24 [History Confirmed 02/03/24] Exam Physical Exam Vital Signs: Temp Pulse Resp BP Pulse Ox O2 Del Method O2 Flow Rate 97.6 F 60 16 160/81 H 94 L Room Air 0 02/05/24 07:38 02/05/24 07:38 02/05/24 07:38 02/05/24 07:38 02/05/24 07:38 02/05/24 08:40 02/05/24 08:40 Narrative: General: Awake, A&O x 3, pleasant, cooperative, well nourished. Resting comfortably in recliner HENT: NC, AT Eyes: No scleral icterus Neck: Supple Cardio: RRR. Extremities well perfused Respiratory: CTAB, no wheezes rhonchi or rales. No evidence of respiratory distress GI: Soft, nontender, nondistended Neuro: CN II-XII intact. Strength 5/5 right upper and lower extremities. Strength 5/5 left upper and lower extremities.Moves all extremities spontaneously. Sensation intact bilateral lower extremities. Extremities: No edema, erythema, cyanosis Psych: Affect, speech and movements normal. Mood congruent Results - Phys. Rehab Labs Labs: Laboratory Results - last 24 hr 02/04/24 02/04/24 02/04/24 11:40 13:35 14:57 Corrected WBC Uncorrected WBC Count RBC Hgb Hct MCV MCH MCHC RDW Plt Count MPV Neut % (Auto) Lymph % (Auto) [place] % (Auto) Eos % (Auto) Baso % (Auto) Nucleat RBC Rel Count Neut # (Auto) Lymph # (Auto) [place] # (Auto) Eos # (Auto) Baso # (Auto) PHA Creatinine Clear Sodium Potassium Chloride Carbon Dioxide Anion Gap BUN Creatinine Est GFR (CKD-EPI) Glucose POC Glucose 100 Calcium Blood Type A Positive Blood Type Recheck A Positive Antibody Screen Negative 02/04/24 02/04/24 02/04/24 15:06 16:04 20:59 Corrected WBC Uncorrected WBC Count RBC Hgb Hct MCV MCH MCHC RDW Plt Count MPV Neut % (Auto) Lymph % (Auto) [place] % (Auto) Eos % (Auto) Baso % (Auto) Nucleat RBC Rel Count Neut # (Auto) Lymph # (Auto) [place] # (Auto) Eos # (Auto) Baso # (Auto) PHA Creatinine Clear Sodium Potassium Chloride Carbon Dioxide Anion Gap BUN Creatinine Est GFR (CKD-EPI) Glucose POC Glucose 113 125 241 Calcium Blood Type Blood Type Recheck Antibody Screen 02/05/24 05:24 Corrected WBC 12.3 H Uncorrected WBC Count 12.3 H RBC 3.42 L Hgb 11.2 L Hct 33.7 L MCV 98.5 MCH 32.8 MCHC 33.3 RDW 13.6 Plt Count 123 L MPV 10.1 Neut % (Auto) 91.8 Lymph % (Auto) 3.3 [place] % (Auto) 4.6 Eos % (Auto) 0.1 Baso % (Auto) 0.2 Nucleat RBC Rel Count 0.0 Neut # (Auto) 11.3 H Lymph # (Auto) 0.4 L [place] # (Auto) 0.6 Eos # (Auto) 0.0 Baso # (Auto) 0.0 PHA Creatinine Clear 18.09 Sodium 139 Potassium 4.6 Chloride 105 Carbon Dioxide 24.0 Anion Gap 14.6 BUN 63 H Creatinine 3.53 H Est GFR (CKD-EPI) 16.438 Glucose 175 H POC Glucose Calcium 8.6 Blood Type Blood Type Recheck Antibody Screen Assessment/Plan (1) Closed displaced fracture of left femoral neck: (2) Left hip pain: (3) Peripheral artery disease: (4) Chronic kidney disease, stage IV (severe): (5) Coronary artery disease: (6) Impaired mobility and activities of daily living: (7) Post-operative pain: Plan This is a 84-year-old male who presents with multifactorial functional decline in the setting of left displaced femoral neck fracture s/p hemiarthroplasty. Hehas continued impaired mobility and impaired independence with ADLs and IADLs requiring PT/OT 5-7 days/week 3 hours/day to maximize safety and independence with functional ability and self-care. -Patient has multiple medical comorbidities including CAD and PVD with claudication that make his post acute care rehab more complicated. In addition, with age>80 he is at a higher risk for complications and hospital readmittance. Given this, I do not believe he can be managed at a lower level of care and requires a rehab physician to follow his case at least 3 days/week. Beyond his complex medical needs, complex rehab needs including complex pain management require frequent monitoring by a rehab physician. Primary Rehabilitation Diagnosis: Left femoral neck fracture s/p hemiarthroplasty Patient is appropriate for acute inpatient rehab facility once medically stable per primary service and consultants. The patient has functional deficits requiring both active and ongoing therapeutic intervention of at least 2 disciplines of therapy, physical therapy/Occupational Therapy +/- speech therapy. Patient has worked appropriately with multiple disciplines of therapy on acute care, and demonstrates ability to tolerate and participate and make reasonable gains with at least a 15 hour/week inpatient rehabilitation program. Due to medical complexity as noted, rehabilitation physician supervision is bothreasonable and necessary, including afne-ml-guoy visits at least 3 days/week with the need to treat, manage and modify course of treatment, including participating in at least once weekly interdisciplinary team conferences. The patient requires multidisciplinary rehabilitation treatment including rehabilitation physician at least 3 times per week, 24-hour rehabilitation nursing, physical occupational therapy, plus/minus speech-language pathology, rehabilitation case management, nutrition services, plus minus rehabilitation psychology. This case cannot be best/most appropriately managed at a lower level of care. Estimated length of rehabilitation stay: 10 Days Prior Level of Function: IND Expected functional status at discharge from rehab: Self-care (ADLs) : Mod I Bed Mobility/Transfers: Mod I Ambulation: Mod I There is a reasonable plan in place for discharge to the community. Overall prognosis is fair to good to make functional gains that would make substantial difference in the eventual discharge setting. Patient was personally seen by me, Dr. Ugarte, on the day of encounter, reviewed the history and the relevant portions of the chart, including current orders, allied health and benefits sales consultant notes, labs/imaging and performed ibarra elements of exam and I formulated the plan of care and facilitated the medical decision making. I completed a substantive portion of this encounter, the medical decision makingportion of this note in its entirety, including Allied health note review, nursing note review, benefits sales consultant note review, discussion with nursing and case management, and more than 50% of my time was spent on counseling and coordination of care, time spent 65 minutes Documented By: Artis Ugarte MD 1013 Signed By: <Electronically signed by Artis Ugarte MD> 02/05/24 1303 [facility] Work Phone: 1(334) 928-652807-25-2024 Progress note Author Mere Nelson [facility] February 05, 2024 9:45am Note Date/Time February 05, 2024 9:45 am [facility] [address] [place] [address] Hospitalist Progress Note Signed Patient: Apolinar Norman MR#: [id number] [birth year] : 1940 Acct:[id number] Age/Sex: 84 / M Adm Date: 4 Loc: 4N Room: [id number] Type: ADM IN Attending Dr: Mere Nelson MD Copies to: ~ Date of Service: 02/05/2024 Subjective Subjective Narrative: On examination patient just urinated standing up bearing weight on his left leg. Complaining of pain but not as severe as yesterday. No overnight event and wasable to sleep last night. Yesterday he underwent left hip hemiarthroplasty. Hedenies chest pain or shortness of breath. Exam Physical Exam Vital Signs: Temp Pulse Resp BP Pulse Ox O2 Del Method O2 Flow Rate 97.6 F 60 16 160/81 H 94 L Room Air 0 02/05/24 07:38 02/05/24 07:38 02/05/24 07:38 02/05/24 07:38 02/05/24 07:38 02/05/24 08:40 02/05/24 08:40 Const Orientation: alert, awake and oriented x3 Other: Slightly drowsy but awake and following commands. Resp Effort & Inspection: normal respiratory effort and able to speak in complete sentences Auscultation: no rales, no rhonchi and no wheezes Cardio Rate: regular rate Rhythm: regular rhythm Heart Sounds: S1 normal and S2 normal GI Palpation: soft, not firm, no guarding and nontender Neuro General: patient alert, patient awake, patient oriented x3, moves all extremities, no focal motor deficits and CN's II-XI intact bilaterally Motor: muscle tone normal throughout and strength 5/5 throughout Sensory Exam: no sensory deficits noted Extrem General: no clubbing, cyanosis or edema and no calf tenderness Objective Lab Results 02/05/24 05:24 02/05/24 05:24 Meds Allergies and Active Meds Allergies levofloxacin Allergy (Verified 12/09/23 08:48) Rash Penicillins Allergy (Verified 12/09/23 08:48) Swelling, rash Active Meds: Active Medications Generic Name Dose Route Start Last Admin Trade Name Bhavinq PRN Reason Stop Dose Admin Acetaminophen 1,000 mg 02/03/24 21:19 02/05/24 01:22 Acetaminophen 500 Mg Tablet PO 02/02/25 21:18 1,000 mg Q6HR PRN Administration Pain Scale 1 - 3 or fever Acetaminophen 1,000 mg 02/04/24 13:07 Acetaminophen 500 Mg Tablet PO 02/03/25 13:06 Q8H PRN Fever or Pain Amiodarone HCl 200 mg 02/03/24 23:00 02/04/24 21:26 Amiodarone 200 Mg Tablet PO 02/02/25 22:59 200 mg QPM REVA Administration Aspirin 81 mg 02/05/24 09:00 02/05/24 08:40 Aspirin 81 Mg Tablet.Dr PO 02/04/25 08:59 81 mg DAILY REVA Administration Atorvastatin Calcium 80 mg 02/04/24 22:00 02/04/24 21:27 Atorvastatin 80 Mg Tablet PO 02/03/25 21:59 80 mg QHS REVA Administration Dextrose 0 gm 02/03/24 21:24 Dextrose 50% In Water 25 Gm/50 Ml Syringe IV-PUSH 02/02/25 21:23 PRN PRN Hypoglycemia Diphenhydramine HCl 25 mg 02/04/24 13:07 Diphenhydramine 25 Mg Capsule PO 02/03/25 13:06 Q6H PRN Itching Docusate Sodium 100 mg 02/03/24 21:19 Docusate 100 Mg Capsule PO 02/02/25 21:18 BID PRN Constipation Docusate Sodium 100 mg 02/04/24 21:00 02/05/24 08:40 Docusate 100 Mg Capsule PO 02/03/25 20:59 100 mg BID REVA Administration Glucose 0 gm 02/03/24 21:24 Dextrose 40% Gel 15 Gm Tube PO 02/02/25 21:23 PRN PRN Hypoglycemia Heparin Sodium (Porcine) 5,000 unit 02/04/24 21:00 02/05/24 08:39 Heparin 5,000 Unit/Ml Vial SUBCUT 02/03/25 20:59 5,000 unit Q12HR REVA Administration Hydromorphone HCl 0.5 mg 02/03/24 21:19 02/04/24 08:36 Hydromorphone 0.5 Mg/0.5 Ml Syringe IV-PUSH 0.5 mg Q4H PRN Administration Pain Scale 8 - 10 Insulin Aspart 0 units 02/03/24 22:00 02/05/24 08:30 Insulin Aspart 300 Units/3 Ml Insuln.Pen SUBCUT 02/02/25 21:59 2 units TID.WM.HS REVA Administration Protocol Levothyroxine Sodium 100 mcg 02/04/24 06:30 02/05/24 06:50 Levothyroxine 100 Mcg Tablet PO 02/03/25 06:29 100 mcg DAILY.0630 REVA Administration Metoprolol Succinate 50 mg 02/04/24 09:00 02/05/24 08:56 Metoprolol Succinate 50 Mg Tab.Er.24h PO 02/03/25 08:59 50 mg DAILY REVA Administration Naloxone HCl 0.1 mg 02/03/24 21:19 Naloxone Hcl 0.4 Mg/Ml Vial IV-PUSH 02/02/25 21:18 Q2M PRN Opioid Reversal Nitroglycerin 0.4 mg 02/03/24 22:54 Nitroglycerin 0.4 Mg Tab.Subl SUBLINGUAL 02/02/25 22:53 Q5MIN.X3 PRN chest pain Ondansetron HCl 4 mg 02/03/24 21:19 Ondansetron 4 Mg/2 Ml Vial IV-PUSH 02/02/25 21:18 Q6H PRN Nausea And Vomiting Ondansetron HCl 4 mg 02/04/24 13:07 Ondansetron 4 Mg/2 Ml Vial IV-PUSH 02/03/25 13:06 Q6H PRN Nausea/Vomiting Oxycodone HCl 5 mg 02/03/24 21:19 02/05/24 08:40 Oxycodone Ir 5 Mg Tablet PO 5 mg Q6HR PRN Administration Pain Scale 4 - 7 Pantoprazole Sodium 40 mg 02/04/24 09:00 02/05/24 08:39 Pantoprazole 40 Mg Tablet. PO 02/03/25 08:59 40 mg BID REVA Administration Sennosides 2 tab 02/03/24 22:00 02/04/24 21:27 Sennosides 8.6 Mg Tablet PO 02/02/25 21:59 2 tab HS REVA Administration Sodium Chloride 0 ml 02/03/24 22:00 02/05/24 06:50 Sodium Chloride 0.9 % 10 Ml Syringe IV-PUSH 02/02/25 21:59 10 ml QSHIFT REVA Administration A&P - Hospitalist Assessment/Plan (1) Left hip pain: (2) Closed displaced fracture of left femoral neck: (3) Hypertension: (4) Diabetes mellitus, type 2: (5) Chronic kidney disease, stage IV (severe): (6) PAD (peripheral artery disease): (7) Peripheral vascular disease: (8) Hyperlipidemia: (9) Coronary artery disease: Plan Patient postop day 1 left hip hemiarthroplasty with no overnight event. He is complaining of pain but mentioned pain medication has helped. PT/OT has been consulted. Renal function around baseline. Denies chest pain or shortness of breath. Plavix on hold and resume once okay with orthopedic. He was continued on aspirin and subcutaneous heparin for DVT prophylaxis. Blood pressure has been the higher side and will restart his Lasix since he is taking orally. Continue statin, metoprolol, levothyroxine, PPI and pain management. Documented By: Mere Nelson MD 02/05/2441 Signed By: <Electronically signed by Mere Nelson MD> 02/05/24 0982 [facility] Work Phone: 1([phone] 483-602007-24-2024 Progress note Author Mere Nelson [facility] February 04, 2024 12:04pm Note Date/Time February 04, 2024 11:5 8am [facility] [address] [place] [address] Hospitalist Progress Note Signed Patient: Apolinar Norman MR#: [id number] [birth year] : 1940 Acct:[id number] Age/Sex: 84 / M Adm Date: 4 Loc: Room: 3G2861-9 Type: ADM IN Attending Dr: Mere Nelson MD Copies to: ~ Date of Service: 02/04/2024 Subjective Subjective Narrative: Patient examined at bedside with multiple family members in the room. Currentlyappears slightly drowsy but denies having pain. He has been seen by orthopedic with plan for surgical intervention later today. Does have history of coronary disease status post CABG, chronic kidney disease stage IV with left forearm AV fistula not on hemodialysis. He was transferred from [facility] ER due toleft hip pain after a fall. Please refer to H&P regarding preoperative evaluation. He denies having chest pain or recent cardiac issues. Exam Physical Exam Vital Signs: Temp Pulse Resp BP Pulse Ox O2 Del Method O2 Flow Rate 97.8 F 47 L 12 106/76 94 L Room Air 2 02/04/24 08:00 02/04/24 08:00 02/04/24 08:00 02/04/24 08:00 02/04/24 08:00 02/04/24 08:12 02/04/24 08:12 Const Other: Slightly drowsy but awake and following commands. Resp Effort & Inspection: normal respiratory effort and able to speak in complete sentences Auscultation: no rales, no rhonchi and no wheezes Cardio Rate: regular rate Rhythm: regular rhythm Heart Sounds: S1 normal and S2 normal GI Palpation: soft, not firm, no guarding and nontender Neuro General: patient awake, patient oriented x3, moves all extremities and no focal motor deficits Objective Lab Results 02/04/24 05:10 02/04/24 05:10 Meds Allergies and Active Meds Allergies levofloxacin Allergy (Verified 12/09/23 08:48) Rash Penicillins Allergy (Verified 12/09/23 08:48) Swelling, rash Active Meds: Active Medications Generic Name Dose Route Start Last Admin Trade Name Freq PRN Reason Stop Dose Admin Acetaminophen 1,000 mg 02/03/24 21:19 Acetaminophen 500 Mg Tablet PO 02/02/25 21:18 Q6HR PRN Pain Scale 1 - 3 or fever Amiodarone HCl 200 mg 02/03/24 23:00 02/03/24 23:29 Amiodarone 200 Mg Tablet PO 02/02/25 22:59 200 mg QPM REVA Administration Aspirin 81 mg 02/05/24 09:00 Aspirin 81 Mg Tablet. PO 02/04/25 08:59 DAILY REVA Atorvastatin Calcium 80 mg 02/04/24 22:00 Atorvastatin 80 Mg Tablet PO 02/03/25 21:59 QHS REVA Clopidogrel Bisulfate 75 mg 02/05/24 09:00 Clopidogrel Bisulfate 75 Mg Tablet PO 02/04/25 08:59 DAILY COUNTS INCLUDE 234 BEDS AT THE [facility] Dextrose 0 gm 02/03/24 21:24 Dextrose 50% In Water 25 Gm/50 Ml Syringe IV-PUSH 02/02/25 21:23 PRN PRN Hypoglycemia Docusate Sodium 100 mg 02/03/24 21:19 Docusate 100 Mg Capsule PO 02/02/25 21:18 BID PRN Constipation Furosemide 80 mg 02/05/24 09:00 Furosemide 80 Mg Tablet PO 02/04/25 08:59 BID REVA Glucose 0 gm 02/03/24 21:24 Dextrose 40% Gel 15 Gm Tube PO 02/02/25 21:23 PRN PRN Hypoglycemia Heparin Sodium (Porcine) 5,000 unit 02/04/24 21:00 Heparin 5,000 Unit/Ml Vial SUBCUT 02/03/25 20:59 Q12HR REVA Hydromorphone HCl 0.5 mg 02/03/24 21:19 02/04/24 08:36 Hydromorphone 0.5 Mg/0.5 Ml Syringe IV-PUSH 0.5 mg Q4H PRN Administration Pain Scale 8 - 10 Lactated Ringer's 1,000 mls @ 50 mls/hr 02/04/24 00:00 02/03/24 23:38 Lactated Ringers IV 02/04/24 19:59 50 mls/hr .Q20H REVA Administration Insulin Aspart 0 units 02/03/24 22:00 02/04/24 09:51 Insulin Aspart 300 Units/3 Ml Insuln.Pen SUBCUT 02/02/25 21:59 Not Given TID.WM.HS COUNTS INCLUDE 234 BEDS AT THE [facility] Protocol Levothyroxine Sodium 100 mcg 02/04/24 06:30 02/04/24 07:24 Levothyroxine 100 Mcg Tablet PO 02/03/25 06:29 Not Given DAILY.0630 COUNTS INCLUDE 234 BEDS AT THE [facility] Metoprolol Succinate 50 mg 02/04/24 09:00 02/04/24 10:45 Metoprolol Succinate 50 Mg Tab.Er.24h PO 02/03/25 08:59 Not Given DAILY REVA Naloxone HCl 0.1 mg 02/03/24 21:19 Naloxone Hcl 0.4 Mg/Ml Vial IV-PUSH 02/02/25 21:18 Q2M PRN Opioid Reversal Nitroglycerin 0.4 mg 02/03/24 22:54 Nitroglycerin 0.4 Mg Tab.Subl SUBLINGUAL 02/02/25 22:53 Q5MIN.X3 PRN chest pain Ondansetron HCl 4 mg 02/03/24 21:19 Ondansetron 4 Mg/2 Ml Vial IV-PUSH 02/02/25 21:18 Q6H PRN Nausea And Vomiting Oxycodone HCl 5 mg 02/03/24 21:19 Oxycodone Ir 5 Mg Tablet PO Q6HR PRN Pain Scale 4 - 7 Pantoprazole Sodium 40 mg 02/04/24 09:00 02/04/24 10:45 Pantoprazole 40 Mg Tablet.Dr PO 02/03/25 08:59 Not Given BID REVA Sennosides 2 tab 02/03/24 22:00 02/03/24 23:28 Sennosides 8.6 Mg Tablet PO 02/02/25 21:59 Not Given HS COUNTS INCLUDE 234 BEDS AT THE [facility] Sodium Chloride 0 ml 02/03/24 22:00 02/04/24 07:10 Sodium Chloride 0.9 % 10 Ml Syringe IV-PUSH 02/02/25 21:59 Not Given QSHIFT COUNTS INCLUDE 234 BEDS AT THE [facility] A&P - Hospitalist Assessment/Plan (1) Left hip pain: (2) Closed displaced fracture of left femoral neck: (3) Hypertension: (4) Diabetes mellitus, type 2: (5) Chronic kidney disease, stage IV (severe): (6) PAD (peripheral artery disease): (7) Peripheral vascular disease: (8) Hyperlipidemia: (9) Coronary artery disease: Plan Patient has been seen by orthopedic with plan for surgical intervention later today. Will hold Plavix and continue aspirin. Monitor renal function daily and morning labs. Continue beta-gavi and levothyroxine. Hold glimepiride and continue sliding scale coverage. Will hold Lasix for 1 day and resume tomorrow. On heparin for DVT prophylaxis. Pain management. Documented By: Mere Nelson MD 02/04/24 1156 Signed By: <Electronically signed by Mere Nelson MD> 02/04/24 1202 [facility] Work Phone: 1(270) 416-754907-24-2024 Consult note Author Immanuel Burk [facility] February 04, 2024 7:47am Note Date/Time February 04, 2024 7:47 am [facility] [address] [place] [address] Orthopedic Consult Note Signed Patient: Apolinar Norman MR#: [id number] 57 : 1940 Acct:[id number] Age/Sex: 84 / M Adm Date: 4 Loc: 4N Room: [address] [place] [address] Type: ADM IN Attending Dr: Mere Nelson MD Copies to: MD Immanuel Figueroa II, DO Mazhar Rahman, MD~ History of Present Illness HPI Consult date: 02/04/2024 Requesting provider: Mere Nelson MD Consult reason: fracture History of present illness: is an 84-year-old gentleman with type 2 diabetes, peripheral vascular disease, chronic kidney disease, CAD status post CABG and [facility] He was found to have a left displaced femoral neck fracture. He was transferred to [facility] for care. Patient complains of pain in the left hip. Denies pain elsewhere. Patient did walk independently before this. He states that he lives with his grandson. Denies any new numbness or tingling in his legs. Denies any systemicsymptoms including fevers, chills, chest pain, shortness of breath Review of Systems Review of Systems All other systems reviewed & are negative unless noted below or in HPI [facility] Medical History (Updated 02/04/24 @ 00:43 by Yovana Tian RN) Orthostatic hypotension Former smoker COPD (chronic obstructive pulmonary disease) Chronic kidney disease (CKD) Hypothyroidism Skin cancer Arthritis GERD (gastroesophageal reflux disease) Diabetes mellitus, type 2 Peripheral vascular disease Myocardial infarct Hypertension Hyperlipidemia Coronary artery disease Pacemaker Surgical History (Updated 02/03/24 @ 21:24 by Yovana Tian RN) S/P arteriovenous (AV) fistula creation S/P cardiac pacemaker procedure H/O bursectomy elbow History of cardiac catheterization 2020 History of vascular surgery PVD-stents in legs 2010 History of phacoemulsification of cataract of both eyes with intraocular lens implantation S/P colonoscopic polypectomy Stented coronary artery S/P CABG (coronary artery bypass graft) Family History Father Diabetes CHF (congestive heart failure) Kidney failure Hernia Mother Diverticulitis Brother Cancer Daughter Heart disease Hypertension Diabetes Daughter Motor vehicle accident Social History Smoking Status: Former smoker (quit in 1982) Tobacco Type: cigarettes Substance Use Type: Alcohol (reports one beer daily) Social History Comments: lives with 20 year old grandson Allergies & Medications Medications and Allergies Allergies levofloxacin Allergy (Verified 12/09/23 08:48) Rash Penicillins Allergy (Verified 12/09/23 08:48) Swelling, rash Home Medications ascorbic acid (vitamin C) 500 mg tablet (Vitamin C) 1,000 mg PO DAILY 04/24/21 [History Confirmed 02/03/24] aspirin 81 mg tablet,delayed release 81 mg PO DAILY 04/24/21 [History Confirmed 02/03/24] atorvastatin 80 mg tablet 80 mg PO QHS 04/24/21 [History Confirmed 02/03/24] clopidogrel 75 mg tablet 75 mg PO DAILY 04/24/21 [History Confirmed 02/03/24] glyburide 1.25 mg tablet 1.25 mg PO QAM DM 04/24/21 [History Confirmed 02/03/24] levothyroxine 100 mcg tablet 100 mcg PO QAM 04/24/21 [History Confirmed 02/03/24] amiodarone 200 mg tablet 200 mg PO QPM 02/10/22 [History Confirmed 02/03/24] omeprazole 40 mg capsule,delayed release 40 mg PO QPM 02/10/22 [History Confirmed 02/03/24] cholecalciferol (vitamin D3) 25 mcg (1,000 unit) capsule (Vitamin D3) 25 mcg PO DAILY 09/17/23 [History Confirmed 02/03/24] metoprolol succinate 50 mg tablet,extended release 24 hr 50 mg PO DAILY 11/03/23[History Confirmed 02/03/24] furosemide 40 mg tablet (Lasix) 80 mg PO BID 02/03/24 [History Confirmed 02/03/24] nitroglycerin 0.4 mg sublingual tablet 0.4 mg sublingual Q5-15M PRN chest pain 02/03/24 [History Confirmed 02/03/24] Exam Physical Exam Vital Signs: Temp Pulse Resp BP Pulse Ox O2 Del Method O2 Flow Rate 98.5 F 44 L 12 156/70 H 96 Nasal Cannula 2 02/04/24 03:24 02/04/24 03:24 02/04/24 03:24 02/04/24 03:24 02/04/24 03:24 02/04/24 03:24 02/04/24 03:24 Patient resting comfortably in bed, no acute distress. Answering questions appropriately. Examination of left hip shows diffuse tenderness palpation around the left hip. Pain with logroll and heel strike. No tenderness around the left knee. Intact strength ankle dorsiflexion/plantarflexion, FHL, EHL. Sensation intact light touch L4-S1. DP and PT pulses palpable. Secondary skeletal survey negative Results - Orthopedics Lab Results 02/04/24 05:10 02/04/24 05:10 Labs: Laboratory Results - Last 48 hrs. 02/04/24 05:10: Corrected WBC 11.9 H, Uncorrected WBC Count 11.9 H, RBC 3.82 L, Hgb 12.3 L, Hct 37.4 L, MCV 97.9, MCH 32.2, MCHC 32.9, RDW 13.5, Plt Count 130 L, MPV 10.4 H, Neut % (Auto) 88.1, Lymph % (Auto) 4.9, [place] % (Auto) 5.5, Eos % (Auto) 1.2, Baso % (Auto) 0.3, Nucleat RBC Rel Count 0.0, Neut # (Auto) 10.5 H, Lymph # (Auto) 0.6 L, [place] # (Auto) 0.7, Eos # (Auto) 0.1, Baso # (Auto) 0.0, PT12.1, INR 1.0, APTT 30.4, PHA Creatinine Clear 17.84, Sodium 137, Potassium 4.4,Chloride 103, Carbon Dioxide 24.6, Anion Gap 13.8, BUN 58 H, Creatinine 3.55 H, Est GFR (CKD-EPI) 16.327, Glucose 108 H, Calcium 8.5 L, Magnesium 2.2 02/03/24 21:43: POC Glucose 93 H & H 02/04/24 Range/Units 05:10 Hgb 12.3 L (13.0-17.0) g/dL Hct 37.4 L (38.8-50.0) % Coagulation 02/04/24 Range/Units 05:10 INR 1.0 All other labs are normal. Imaging & Diagnostic Results Imaging/Diagnostics: 2 view left hip x-rays obtained in outside hospital shows displaced transcervical femoral neck fracture. With no severe degenerative changes noted in the femoral acetabular joint Assessment/Plan (1) Closed displaced fracture of left femoral neck: Code(s): S72.002A - Fracture of unspecified part of neck of left femur, initial encounterfor closed fracture Plan JR is an 84-year-old gentleman who sustained a left displaced femoral neck fracture. He would benefit from a left hip hemiarthroplasty to increase mobilization. -N.p.o. now -Plan for left hip hemiarthroplasty today by either myself or my partner Dr. Oneal -Preoperative labs ordered -Preoperative clearance per medicine -optimized at this time -Patient does have a significant cardiac history, I will discuss with anesthesiato ensure that they are comfortable with surgical intervention today -Hold anticoagulation and antiplatelet therapy at this time. Documented By: Immanuel Burk DO 02/04/24 0744 Signed By: <Electronically signed by Immanuel Burk DO> 02/04/24 0747 [facility] Work Phone: 1([phone]) [phone] History and physical note Author Frantz Weinstein [facility] February 03, 2024 11:34pm Note Date/Time February 03, 2024 9:26 pm [facility] [address] [place] [address] Hospitalist H&P Signed Patient: Apolinar Norman MR#: [id number] 57 : 1940 Acct:[id number] Age/Sex: 84 / M Adm Date: 4 Loc: 4N Room: [address] [place] [address] Type: ADM IN Attending Dr: Kenneth Madrigal MD Copies to: MD Frantz Figueroa II, MD Azra Christensen, DIRECTOR INDEPENDENT~ HPI DATE OF EXAMINATION: 02/03/24 CHIEF COMPLAINT: fall, left hip pain HISTORY OF PRESENT ILLNESS: Mr. Norman is an 84 year old male with a PMH of PAD, PVD, CKD stage IV, COPD, T2DM, HTN, pacemaker placement, recent left arm fistulogram that presented to [facility] for a fall and left hip pain. Patient seen and examined at bedside upon transfer to [facility]. He reports he was turning around today and his feet did not follow him and he fell. Denied hitting his head or LOC. He hadimmense left hip pain and could not get back up. He does have shortening and outward rotation to LLE, skin pink, warm and dry, pedal pulse palpable. He states his pain is not bad at this time, aggravated with movement. He denies dizziness, chest pain, fever, chills, nausea or vomiting. He quit smoking in 1982, drinks one beer daily. [facility] chart reviewed, EKG atrial paced with PVCs, QTc 482. XR of theleft hip and pelvis showed acute fracture to the left femoral neck. Chest x ray showed chronic elevated right hemidiaphragm versus eventration, stable opacity in left lateral lung base-suspected large pericardial fat pad, no convincing infiltrates, no acute cardiopulmonary process. CBC with an H&H 12.6/38.8, platelets 144. PT/INR- 10.8/1.02, PTT 28.3. BMP- sodium 139, potassium 4.7, BUN 59, creatinine 3.79. He was medicated with hydromorphone and morphine. Transferred here to [facility] as inpatient under the care of the hospitalist team. Review of Systems Review of Systems Review of systems: A 10 point review of systems was obtained, negative unless noted in the HPI or below. [facility] Medical History (Updated 02/03/24 @ 22:50 by Azra Farah APRN) Orthostatic hypotension Former smoker COPD (chronic obstructive pulmonary disease) ESRD (end stage renal disease) Chronic kidney disease (CKD) Hypothyroidism Skin cancer Arthritis GERD (gastroesophageal reflux disease) Diabetes mellitus, type 2 Peripheral vascular disease Myocardial infarct Hypertension Hyperlipidemia Coronary artery disease Pacemaker Surgical History (Updated 02/03/24 @ 21:24 by Yovana Tian RN) S/P arteriovenous (AV) fistula creation S/P cardiac pacemaker procedure H/O bursectomy elbow History of cardiac catheterization 2020 History of vascular surgery PVD-stents in legs 2010 History of phacoemulsification of cataract of both eyes with intraocular lens implantation S/P colonoscopic polypectomy Stented coronary artery S/P CABG (coronary artery bypass graft) Family History Father Diabetes CHF (congestive heart failure) Kidney failure Hernia Mother Diverticulitis Brother Cancer Daughter Heart disease Hypertension Diabetes Daughter Motor vehicle accident Social History Smoking Status: Former smoker (quit in 1982) Tobacco Type: cigarettes Substance Use Type: Alcohol (reports one beer daily) Social History Comments: lives with 20 year old grandson Meds Medications and Allergies Allergies levofloxacin Allergy (Verified 12/09/23 08:48) Rash Penicillins Allergy (Verified 12/09/23 08:48) Swelling, rash Home Medications ascorbic acid (vitamin C) 500 mg tablet (Vitamin C) 1,000 mg PO DAILY 04/24/21 [History Confirmed 02/03/24] aspirin 81 mg tablet,delayed release 81 mg PO DAILY 04/24/21 [History Confirmed 02/03/24] atorvastatin 80 mg tablet 80 mg PO QHS 04/24/21 [History Confirmed 02/03/24] clopidogrel 75 mg tablet 75 mg PO DAILY 04/24/21 [History Confirmed 02/03/24] glyburide 1.25 mg tablet 1.25 mg PO QAM DM 04/24/21 [History Confirmed 02/03/24] levothyroxine 100 mcg tablet 100 mcg PO QAM 04/24/21 [History Confirmed 02/03/24] amiodarone 200 mg tablet 200 mg PO QPM 02/10/22 [History Confirmed 02/03/24] omeprazole 40 mg capsule,delayed release 40 mg PO QPM 02/10/22 [History Confirmed 02/03/24] cholecalciferol (vitamin D3) 25 mcg (1,000 unit) capsule (Vitamin D3) 25 mcg PO DAILY 09/17/23 [History Confirmed 02/03/24] metoprolol succinate 50 mg tablet,extended release 24 hr 50 mg PO DAILY 11/03/23[History Confirmed 02/03/24] furosemide 40 mg tablet (Lasix) 80 mg PO BID 02/03/24 [History Confirmed 02/03/24] nitroglycerin 0.4 mg sublingual tablet 0.4 mg sublingual Q5-15M PRN chest pain 02/03/24 [History Confirmed 02/03/24] Exam Physical Exam Vital Signs: Temp Pulse Resp Pulse Ox O2 Del Method O2 Flow Rate 98.0 F 51 L 18 95 Nasal Cannula 2 02/03/24 19:45 02/03/24 19:45 02/03/24 19:45 02/03/24 19:45 02/03/24 19:45 02/03/24 19:45 Narrative: CONST- Appears well -developed and well nourished. HEAD - Normocephalic and atraumatic EENT-Sclera nonicteric, conjunctive are non-erythemic, moist oral mucosa, pharynx clear, facial flushing NECK-Supple, no cervical lymphadenopathy CARDIAC-normal rate, irregular rhythm, S1 & S2. PULM-diminished without wheeze or rhonchi, 2L NC, no accessory muscle use or cough noted ABD - Soft. Bowel sounds are normal. No distention. No tenderness EXTREM-non pitting edema BLE ankles, tenderness and pain to LLE- shortening and outward rotation to LLE SKIN- W/D good turgor MS- MAEX4 spontaneously, pain and weakness to LLE due to hip fracture NEURO- A&Ox3 speech clear and tongue midline, equal facial symmetry, no focal motor deficits PSYCH-Mood, affect, and behavior appropriate Assessment & Plan Assessment/Plan (1) Left hip pain: (2) Closed displaced fracture of left femoral neck: (3) Hypertension: (4) Diabetes mellitus, type 2: (5) Chronic kidney disease, stage IV (severe): (6) PAD (peripheral artery disease): (7) Peripheral vascular disease: (8) Hyperlipidemia: (9) Coronary artery disease: Plan Left hip pain s/p fall Mildly displaced left femoral neck fracture - Consult orthopedic surgery - Acetaminophen, oxy IR, hydromorphone as needed for pain - NPO at midnight - Gentle IV hydration at midnight- LR @ 50cc/hr x 1L Irregular heart beat- patient denies hx of A-fib- on amiodarone HTN- metoprolol T2DM- fingersticks ACHS, SSIC, hold glyburide Hypothyroidism- levothyroxine CAD- low dose aspirin, clopidogrel HLD- atorvastatin BLE edema- furosemide DVT PPx- SCDs, heparin to start post-op Diet order-1800 ADA, NPO at midnight CODE STATUS-DNR CCA without intubation discussed with patient +++ +++ The patient may proceed with the likely orthopedic procedure. I do not think any additional testing before surgery is necessary or would change the outcome. The biggest risk is that the patient's tenuous chronic kidney disease may worsen, potentially progressing to needing hemodialysis, but delaying surgery will only increase that risk. Work is already been started to create hemodialysis access by vascular surgery, with the patient having undergone left forearm arteriogram and balloon angioplasty of the left radial artery on 11/26/2023, done to help with a Manpreet fistula. I personally saw this patient on the day of the encounter, reviewed the relevanthistory, performed the ibarra elements of the physical exam, and discussed and formulated the plan of care with the Nurse Practitioner, and I confirm the NursePractitioner's documentation as written. - - - Frantz Weinstein DO. Internal Medicine + Hospitalist attending physician. IP vs OBS Justification Based on differential dx, clinical care plan, and risk of adverse events, if untreated, in my clinical judgement this patient requires an acute care setting as: INPATIENT because of an expectation of an over 2 midnight stay. Estimated length of stay (# of days): 3 Documented By: Azra Farah APRN 02/03/242125 Signed By: <Electronically signed by CHIDI Farah> 02/03/242255 <Electronically signed by Frantz Weinstein DO> 02/03/24 2334 [facility] Work Phone: 1(404) 507-996703-25-2024 Evaluation + Plan note* Assessment & Plan Note - KYARA Johnson - 10/06/2023 9:55 AM EDTAssociated Problem(s): CAD (coronary artery disease) Apr 26, 2021 Cath: Left main occluded pRCA 80-90% SVG - CX/Sera with 80% graft ISR MAYA - LAD patent No intervention due to CKD Current daily activity < 4 METs No angina off imdur No ntg use [facility] Work Phone: 1(299) 450-261103-25-2024 Miscellaneous Notes* Assessment & Plan Note - KYARA Johnson - 10/06/2023 9:55 AM EDTAssociated Problem(s): CAD (coronary artery disease) Apr 26, 2021 Cath: Left main occluded pRCA 80-90% SVG - CX/Sera with 80% graft ISR MAYA - LAD patent No intervention due to CKD Current daily activity < 4 METs No angina off imdur No ntg use * Assessment & Plan Note - KYARA Johnson - 10/06/2023 9:54 AM EDT Associated Problem(s): Stage 4 chronic kidney disease (CMS/HCC) Had AVF placed last week Will start HD in next coming months * Assessment & Plan Note - KYARA Johnson - 10/06/2023 9:54 AM EDT Associated Problem(s): BMI 36.0-36.9,adult Reviewed the merits of healthy lifestyle choices on overall cardiovascular health. * Assessment & Plan Note - KYARA Johnson - 10/06/2023 9:53 AM EDT Associated Problem(s): DM (diabetes mellitus) ([facility]) On statin No EDILMA/ARB due to CKD Unknown HgA1c * Assessment & Plan Note - KYARA Johnson - 10/06/2023 9:53 AM EDT Associated Problem(s): Orthostatic hypotension Called into office September 2023 with complaints of low BP - imdur d/c'd and lopressor reduced with improvement in complaints Had 16mmHg drop supine to standing in office today - asymptomatic * Assessment & Plan Note - KYARA Johnson - 10/06/2023 9:51 AM EDT Associated Problem(s): Hyperlipidemia Tolerating high intensity statin Unclear if he will get annual wellness labs * Assessment & Plan Note - KYARA Johnson - 10/06/2023 9:51 AM EDT Associated Problem(s): Echocardiogram abnormal Feb 2022 LVEF 55% LA moderate dilated MR mild/moderate RVSP 5 mmHg * Assessment & Plan Note - KYARA Johnson - 10/06/2023 9:50 AM EDT Associated Problem(s): Cardiac pacemaker in situ BS Accolade dual chamber PPM January 2023: device interrogation Has remote transmission * Assessment & Plan Note - KYARA Johnson - 10/06/2023 9:49 AM EDT Associated Problem(s): Arrhythmia, 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 Murdock ? Ischemic driven * Assessment & Plan Note - KYARA Johnson - 10/06/2023 9:48 AM EDT Associated Problem(s): High risk medication use Amiodarone start date October 2021 due to PVC Testing: August 2023 ECG in office a-paced; trigeminy Qtc 520 [facility] [phone] Evaluation + Plan note* Assessment & Plan Note - KYARA Johnson - 10/06/2023 9:54 AM EDTAssociated Problem(s): Stage 4 chronic kidney disease (CMS/HCC) Had AVF placed last week Will start HD in next coming months [facility] Work Phone: 1([phone]) 326-331103-25-2024 Evaluation + Plan note* Assessment & Plan Note - KYARA Johnson - 10/06/2023 9:54 AM EDTAssociated Problem(s): BMI 36.0-36.9,adult Reviewed the merits of healthy lifestyle choices on overall cardiovascular health. [facility] Work Phone: [phone]) 537-127503-25-2024 Evaluation + Plan note* Assessment & Plan Note - KYARA Johnson - 10/06/2023 9:53 AM EDTAssociated Problem(s): DM (diabetes mellitus) ([facility]) On statin No EDILMA/ARB due to CKD Unknown HgA1c [facility] Work Phone: [phone]) 510-953903-25-2024 Evaluation + Plan note* Assessment & Plan Note - KYARA Johnson - 10/06/2023 9:53 AM EDTAssociated Problem(s): Orthostatic hypotension Called into office September 2023 with complaints of low BP - imdur d/c'd and lopressor reduced with improvement in complaints Had 16mmHg drop supine to standing in office today - asymptomatic [facility] Work Phone: 1(875) 502-578503-25-2024 Evaluation + Plan note* Assessment & Plan Note - KYARA Johnson - 10/06/2023 9:51 AM EDTAssociated Problem(s): Hyperlipidemia Tolerating high intensity statin Unclear if he will get annual wellness labs [facility] Work Phone: [phone]) 956-592103-25-2024 Evaluation + Plan note* Assessment & Plan Note - KYARA Johnson - 10/06/2023 9:51 AM EDTAssociated Problem(s): Echocardiogram abnormal Feb 2022 LVEF 55% LA moderate dilated MR mild/moderate RVSP 5 mmHg [facility] Work Phone: [phone]) 341-562203-25-2024 Evaluation + Plan note* Assessment & Plan Note - KYARA Johnson - 10/06/2023 9:50 AM EDTAssociated Problem(s): Cardiac pacemaker in situ BS Accolade dual chamber PPM January 2023: device interrogation Has remote transmission [facility] Work Phone: [phone]) [phone] Evaluation + Plan note* Assessment & Plan Note - KYARA Johnson - 10/06/2023 9:49 AM EDTAssociated Problem(s): Arrhythmia, 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 Murdock ? Ischemic driven [facility] Work Phone: [phone]) 711-582303-25-2024 Evaluation + Plan note* Assessment & Plan Note - KYARA Johnson - 10/06/2023 9:48 AM EDTAssociated Problem(s): High risk medication use Amiodarone start date October 2021 due to PVC Testing: August 2023 ECG in office a-paced; trigeminy Qtc 520 [facility] Work Phone: [phone] 120-935103-25-2024 History of Present illness Narrative* KYARA Johnson - 10/06/2023 9:00 AM EDT Chief Complaint Seems to be doing better Reason for Visit Add-on Patient presents to the office today for outpatient follow-up for low blood pressure & medication changes. Last evaluated in clinic by Dr. Murdock Jul 2022. Presents today ambulatory with steady gait. Accompanied by child Patient reports AV fistula placed last week, also reports some type of orthopedic repair since lastoffice follow-up. He did see PCP earlier this year. History of Present Illness Patient is an extremely pleasant 83-year-old gentleman who had called into the office last month reporting episodes of low blood pressure, dizziness and weakness. His dose of Imdur was discontinued and Toprol was reduced. He reports that with the medication changes symptoms have improved. Off of Imdur he has had no angina, no use of nitroglycerin. Prior to medication changes he did report 1 fall that occurred while he was walking across the living room and just fell down -likely orthostatic hypotension. Here in the office 16 mmHg drop, he was asymptomatic. Discussed options of additional medication treatment and he politely declines. He feels that things are not bothersome enough to warrant daily medication. We discussed nonpharmacologic avoidance techniques. He remains fairly sedentary by choice. Denies any exertional symptoms. He takes his metoprolol dose at night. Continues on Lasix twice daily dosed by nephrology. PVCs were identified during October 2021 office visit, he was placed on amiodarone at that time. EKG in the office is trigeminy. He denies any palpitations. His prior complaints of dizziness are clearly postural in nature. He reports that he will likely be starting hemodialysis within the next 3 months. Patient reports that overall has no complaint(s) of chest pain, chest pressure/discomfort, dyspnea,fatigue, and irregular heart beat Daily activity: Sedentary by choice. Denies any change in exercise capacity or functional tolerance since last office visit. The importance of secondary prevention reviewed: HTN: Low blood pressure noted, no further down titration of beta-gavi due to PVCs. HLD: Tolerating high intensity statin, unclear if he will be getting wellness labs this year. DM: Unknown hemoglobin A1c Smoker: Denies BMI: Reviewed the merits of healthy lifestyle choices on overall cardiovascular health. Overall patient is pleased with current state of cardiovascular health. At this time there are no indications for additional cardiovascular testing or need for medication changes. Discussed options of treatment for orthostatic hypotension, he does agree to update office if symptoms recur to initiate treatment. Otherwise, no anginal symptoms off of long-acting nitrates. Did review that the reason no coronary intervention was completed was due to concerns regarding progressionof CKD stage V. If he is to start hemodialysis and has concerning symptoms, he needs to update and can make arrangements for cardiac cath PCI at that time. For now, he remains asymptomatic. Unifocal PVCs but no documented sustained VT on device checks. Review of Systems Cardiovascular: Negative for chest pain, dyspnea on exertion, irregular heartbeat, leg swelling, near-syncope, orthopnea, palpitations, paroxysmal nocturnal dyspnea and syncope. Neurological: Positive for light-headedness. Visit Vitals BP 102/58 (BP Location: Right arm, Patient Position: Standing) Pulse 70 Ht 1.549 m (5' 1 ) Wt 88.5 kg (195 lb) BMI 36.84 kg/m Smoking Status Former BSA 1.95 m Physical Exam Vitals and nursing note reviewed. Constitutional: Appearance: Normal appearance. Cardiovascular: Rate and Rhythm: Normal rate and regular rhythm. Frequent Extrasystoles are present. Heart sounds: Murmur heard. Systolic murmur is present with a grade of 1/6. Pulmonary: Effort: Pulmonary effort is normal. Breath sounds: Normal breath sounds. Musculoskeletal: Cervical back: Full passive range of motion without pain. Right lower leg: No edema. Left lower leg: No edema. Skin: General: Skin is cool. Neurological: Mental Status: He is alert and oriented to person, place, and time. Psychiatric: Attention and Perception: Attention normal. Mood and Affect: Mood normal. Behavior: Behavior is cooperative. Allergies Allergen Reactions Edilma Inhibitors Other Levofloxacin Rash Penicillins Rash and Swelling Current Outpatient Medications Medication Instructions albuterol 90 mcg/actuation inhaler 2 puffs, inhalation, Every 4 hours PRN amiodarone (PACERONE) 200 mg, oral, Daily ascorbic acid (Vitamin C) 1,000 mg tablet 1 tablet, oral, Daily aspirin 81 mg EC tablet 1 tablet, oral, Daily atorvastatin (Lipitor) 80 mg tablet 1 tablet, oral, Daily cholecalciferol (VITAMIN D3) 1,000 Units, oral, Daily clopidogrel (Plavix) 75 mg tablet 1 tablet, oral, Daily dicyclomine (Bentyl) 20 mg tablet 1 tablet, oral, 2 times daily furosemide (LASIX) 80 mg, oral, 2 times daily glyBURIDE (Diabeta) 1.25 mg tablet 1 tablet, oral, Daily levothyroxine (Synthroid, Levoxyl) 100 mcg tablet 1 tablet, oral, Daily metoprolol succinate XL (TOPROL-XL) 50 mg, oral, Daily nitroglycerin (Nitrostat) 0.4 mg SL tablet sublingual omeprazole (PriLOSEC) [address] capsule 1 capsule, oral, Daily Assessment: High risk medication use Amiodarone start date October 2021 due to PVC Testing: August 2023 ECG in office a-paced; trigeminy Qtc 520 Arrhythmia, 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 Murdock ? Ischemic driven Cardiac pacemaker in situ BS Accolade dual chamber PPM January 2023: device interrogation Has remote transmission Echocardiogram abnormal Feb 2022 LVEF 55% LA moderate dilated MR mild/moderate RVSP 5 mmHg Hyperlipidemia Tolerating high intensity statin Unclear if he will get annual wellness labs Orthostatic hypotension Called into office September 2023 with complaints of low BP - imdur d/c'd and lopressor reduced with improvement in complaints Had 16mmHg drop supine to standing in office today - asymptomatic DM (diabetes mellitus) ([facility]) On statin No EDILMA/ARB due to CKD Unknown HgA1c BMI 36.0-36.9,adult Reviewed the merits of healthy lifestyle choices on overall cardiovascular health. Stage 4 chronic kidney disease ([facility]) Had AVF placed last week Will start HD in next coming months CAD (coronary artery disease) Apr 26, 2021 Cath: Left main occluded pRCA 80-90% SVG - CX/Sera with 80% graft ISR MAYA - LAD patent No intervention due to CKD Current daily activity < 4 METs No angina off imdur No ntg use Plan: Use and side effects of nitroglycerine reviewed, call 911 if chest pain unrelieved by 3 tablets. Through informed decision making process incorporating patients unique circumstances, the followingtreatment plan will be initiated: 1. Prescription drug management of cardiovascular medication for efficacy, adherence to treatment, side effect assessment and polypharmacy. Current treatment clinically warranted and to continue without modifications. 2. Return for follow-up; in the interim, contact the office if new symptoms arise. Dr. Pro 6 months Discussed the dynamic nature of coronary artery disease and the importance of seeking medical attention if new symptoms arise. Yeison Farah MSN, DIRECTOR [employer], PMHNP-[facility] Please excuse any errors in grammar or translation related to this dictation. Voice recognition software was utilized to prepare this document. documented in this [facility] Work Phone: [phone]) 631-390303-25-2024 Instructions* Patient Instructions* Yeison Farah, DIRECTOR [employer] - 10/06/2023 9:00 AM EDT Please bring all medicines, vitamins, and herbal supplements with you when you come to the office. Prescriptions will not be filled unless you are compliant with your follow up appointments or have a follow up appointment scheduled as per instruction of your physician. Refills should be requested at the time of your visit. Fall Prevention Education Given PLAN: Through informed decision making process incorporating patients unique circumstances, the followingtreatment plan will be initiated: 1. Prescription drug management of cardiovascular medication for efficacy, adherence to treatment, side effect assessment and polypharmacy. Current treatment clinically warranted and to continue without modifications. 2. Return for follow-up; in the interim, contact the office if new symptoms arise. Dr. Pro 6 months Ways to Help Prevent Falls at Home Quick Tips ? Ask for help if you need it. Most people want to help! ? Get up slowly after sitting or laying down ? Wear a medical alert device or keep cell phone in your pocket ? Use night lights, especially areas near a bathroom ? Keep the items you use often within reach on a small stool or end table ? Use an assistive device such as walker or cane, as directed by provider/physical therapy ? Use a non-slip mat and grab bars in your bathroom. Look for home health sections for best options Other Areas to Focus On ? Exercise and nutrition: Regular exercise or taking a falls prevention class are great ways improve strength and balance. Don t forget to stay hydrated and bring a snack! ? Medicine side effects: Some medicines can make you sleepy or dizzy, which could cause a fall. Askyour healthcare provider about the side effects your medicines could cause. Be sure to let them know if you take any vitamins or supplements as well. ? Tripping hazards: Remove items you could trip on, such as loose mats, rugs, cords, and clutter. Wear closed toe shoes with rubber soles. ? Health and wellness: Get regular checkups with your healthcare provider, plus routine vision and hearing screenings. Talk with your healthcare provider about: o Your medicines and the possible side effects - bring them in a bag if that is easier! o Problems with balance or feeling dizzy o Ways to promote bone health, such as Vitamin D and calcium supplements o Questions or concerns about falling *Ask your healthcare team if you have questions [facility] 2021 documented in this [facility] Work Phone: [phone]) 979-264602-08-2024 History of Present illness Narrative* Justo Cameron MD - 08/21/2023 3:00 PM EST Images from the original note were not included. Subjective : Chief Complaint: Apolinar Norman is an 83 y.o. male here for an annual wellness visit. I have reviewed and reconciled the medication list with the patient today. Current Outpatient Medications Medication Sig Dispense Refill amiodarone (Pacerone) 200 MG tablet Take 1 tablet by mouth in the morning. aspirin 81 MG EC tablet Take 81 mg by mouth in the morning. furosemide (Lasix) 40 MG tablet Take 40 mg by mouth in the morning and 40 mg before bedtime. glucose blood (Accu-Chek SmartView) test strip use to test BLOOD SUGAR DAILY 50 100 strip 3 Lancets Ultra Thin misc 1 each in the morning. 100 each 2 atorvastatin (Lipitor) 80 MG tablet Take 1 tablet (80 mg) by mouth in the morning. 90 tablet 3 clopidogrel (Plavix) 75 MG tablet Take 1 tablet (75 mg) by mouth in the morning. 90 tablet 3 glyBURIDE (Diabeta) 1.25 MG tablet Take 1 tablet (1.25 mg) by mouth in the morning. Take with meals. 90 tablet 3 isosorbide mononitrate ER (Imdur) 30 MG 24 hr tablet Take 1 tablet (30 mg) by mouth in the morning.90 tablet 3 levothyroxine (Synthroid, Levoxyl) 100 MCG tablet Take 1 tablet (100 mcg) by mouth in the morning. Take before meals. 90 tablet 3 metoprolol succinate XL (Toprol-XL) 100 MG 24 hr tablet Take 1 tablet (100 mg) by mouth in the morning. Do not crush or chew.. 90 tablet 3 omeprazole (PriLOSEC) [address] capsule Take 1 capsule (40 mg) by mouth in the morning. Take before meals. Do not crush or chew.. 100 capsule 3 No current facility-administered medications [...] of Falling, Immediate or Within 3 Months: Yes Secondary Diagnosis: No Ambulatory Aid: Walks without aid/bedrest/nurse assist Health Risk Assessment Form Do you need help eating, bathing, using the toilet, dressing, or getting around your home?: No Can you prepare your own meals?: Yes Can you do your own housework without help?: Yes Can you shop for groceries or clothes without help?: Yes Do you exercise for about 20 minutes 3 or more days a week?: No How confident are you that you can control and manage most of your health problems?: Very confident Can you mange your money, credit cards and accounts, pay bills and taxes?: Yes Cognitive Screening Three Word Registration: [place], [place], Chair Clock Drawing: Normal Clock - 2 Three Word Recall: 0 words correct - 0 Total Score (0-5 Points): 2 Pain Assessment Pain Score: 5 - Moderate pain Advance Care Planning Do you have a living will?: No Do you have a medical power of regulatory attorney?: No Objective : BP 132/66 Pulse 58 Ht 5' 11 Wt 197 lb SpO2 98% BMI 27.48 kg/m No results found. Physical Exam Office Visit on 08/21/2023 Component Date Value Ref Range Status Hemoglobin A1C 08/21/2023 6.0 Final Assessment/Plan : The following health maintenance schedule was reviewed with the patient and provided in printed form in the after visit summary: Health Maintenance Topic Date Due Pneumococcal Vaccine: 65+ Years (1 - PCV) Never done Diabetes: Retinopathy Screening 07/24/2019 Influenza Vaccine (1) Never done Diabetes: Hemoglobin A1C 11/19/2023 Medicare Annual Wellness (AWV) 08/21/2024 Advance Care Planning Patient agreed to discuss [...] a living will and durable power of regulatory attorney for healthcare. We discussed telling ibarra people [...] disease, without long-term current use of insulin ([facility]) - POCT Glycated hemoglobin, total - glyBURIDE (Diabeta) 1.25 MG tablet; Take 1 tablet (1.25 mg) by mouth in the morning. Take with meals. 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 - atorvastatin (Lipitor) 80 MG tablet; Take 1 tablet (80 mg) by mouth in the morning. - isosorbide mononitrate ER (Imdur) 30 MG 24 hr tablet; Take 1 tablet (30 mg) by mouth in the morning. - metoprolol succinate XL (Toprol-XL) 100 MG 24 hr tablet; Take 1 tablet (100 mg) by mouth in the morning. Do not crush or chew.. Atherosclerosis of aorta (I70.0) Gastroesophageal reflux disease, unspecified whether esophagitis present - omeprazole (PriLOSEC) [address] capsule; Take 1 capsule (40 mg) by mouth in the morning. Take before meals. Do not crush or chew.. Acquired hypothyroidism ([facility]) - levothyroxine (Synthroid, Levoxyl) 100 MCG tablet; Take 1 tablet (100 mcg) by mouth in the morning. Take before meals. Orders Placed This Encounter Procedures POCT Glycated hemoglobin, total Follow up in about 6 months (around 02/19/2024) for DM- A1C. Electronically signed by Justo Cameron MD on August 21, 2023 documented in this [facility]Miss[facility] [id number] Evaluation note* Encounter Date Diagnosis Assessment Notes Treatment Notes Treatment Clinical Notes Aug, Congestive heart failure, unspecified HF chronicity, unspecified heart failure type (ICD-10 - I50.9) [facility] Other 01-23-2024 Evaluation note* Encounter Date Diagnosis Assessment Notes Treatment Notes Treatment Clinical Notes Jul, Primary hypertension (ICD-10 - I10) Blood pressure is elevated here in the clinic Patient on metoprolol and isosorbide in addition to Lasix. 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 SCr worsened with higher diuretic dose. SCr is up to 3.6 mg/dl No protenuria. Will continue same dose of lasix 40 mg BID. Patient is not on EDILMA inhibitor or ARB due to kidney function fluctuating. Will refer patient to [facility] clinic for access placement Advised the patient to avoid all NSAIDs and to follow low-salt diet to avoid CHF exacerbation. I will continue to check renal function panel every 3 to 4 months Jul, Congestive heart failure, unspecified HF chronicity, unspecified heart failure type (ICD-10 - I50.9) Patient follows with Dr. Murdock in cardiology office. Patient has history of A. fib along with peripheral vascular disease. Patient is on amiodarone, Plavix and aspirin. Patient has history of heart failure. he seems compensating from cardiac stand point Jul, Diabetes mellitus ty pe 2 in nonobese (ICD-10 - E11.9) Patient follows with his PCP. Seems well controlled. Jul, Anemia in chronic kidney disease (ICD-10 - D63.1) Hgb is > 12 g/dl. Jul, Hyperparathyroidism (ICD-10 - E21.3) iPTH 166. 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 Will replace VD and re check ipTH next visit Jul, Hyperuricemia (ICD-1 0 - E79.0) UA is 8.8 . 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 Serum creatinine from today lab showed Cr 3.0 Currently on Lasix 40 mg p.o. daily. Will increase lasix to BID Blood pressure seems reasonably controlled. Patient is not on EDILMA inhibitor or ARB due to kidney function fluctuating. Advised the patient to avoid all NSAIDs and to follow low-salt diet to avoid CHF exacerbation. I will continue to check renal function panel every 3 to 4 months Feb, Anemia in chronic kidney disease (ICD-10 - D63.1) Hgb is up to 12 g/dl. Feb, Primary hypertension (ICD-10 - I10) Blood pressure seems reasonably controlled. Patient on metoprolol and isosorbide in addition to Lasix. I asked the patient to follow low-salt diet and to monitor his blood pressure at home from Feb, Congestive heart failure, unspecified HF chronicity, unspecified heart failure type (ICD-10 - I50.9) Patient follows with Dr. Murdock in cardiology office. Patient has history of A. fib along with peripheral vascular disease. Patient is on amiodarone, Plavix and aspirin. Patient has history of heart failure. Will increase lasix to BID Feb, Diabetes mellitus type 2 in nonobese (ICD-10 - E11.9) Patient follows with his PCP. Seems well controlled. [facility] Other 06-20-2023 Evaluation note* Encounter Date Diagnosis Assessment Notes Treatment Notes Treatment Clinical Notes Dec, PAD (peripheral artery disease) (ICD-10 - I73.9) We reviewed today's noninvasive arterial studies which indicate moderate peripheral vascular disease bilaterally with right ankle-brachial index 0.58, left 0.60. [facility] Other 02-22-2023 NoteOrthopedic Surgery Subjective Post-op of the Left Elbow Apolinar Norman is a 82 y.o. year old [id number] male presenting 9 days status post excision left olecranon bursa. Patient reports swelling to his elbow region but no further drainage. Patient History Past Surgical History: Procedure Laterality Date CARDIAC CATHETERIZATION CARDIAC SURGERY CAROTID STENT CORONARY ARTERY BYPASS GRAFT OLECRANON BURSECTOMY Left 08/26/2022 Past Medical History: Diagnosis Date Artificial cardiac pacemaker Chronic kidney disease Coronary artery disease Diabetes mellitus (CMS/HCC) Hyperlipidemia Hypertension Objective General: Body mass index is 27.48 kg/m???. No acute distress, comfortable Respiratory: Unlabored breathing with normal rate, no cough Cardiovascular: Warm well perfused extremities Psych: Appropriate mood behavior MSK: Examination of the left elbow reveal that there was surrounding ecchymosis and noted fluid accumulation at the bursal site. The incision had healed well and there are no signs of infection. Range of motion was within normal limits. Pathology was reviewed and noted that it was consistent with a bursal sac. Microbiology studies reviewed noted was that on the broth there was growth of staph epi Assessment/Plan Apolinar Norman is a 82 y.o. year old male with status post left elbow olecranon bursectomy with some residual swelling but no signs of infection. Sutures removed. Patient was instructed in gentle range of motion of the elbow. He will be reassessed again in 4 weeks to review his functional status. [facility]02-13-2023 NotePatient: Apolinar Norman Procedure Summary Date: 08/26/22 Room / Location: [facility] OR [address] [place] [address] OR Anesthesia Start: 1333 Anesthesia Stop: 1424 Procedure: BURSECTOMY OF THE OLECRANON (Left: Elbow) Diagnosis: Olecranon bursitis of left elbow (Olecranon bursitis of left elbow [M70.22]) Surgeons: Nuvia Joseph MD Responsible Provider: Grace Gordon MD Anesthesia Type: regional ASA Status: 3 Anesthesia Type: regional Vitals Value Taken Time BP 134/60 08/26/22 1420 Temp 36.5 ???C (97.7 ???F) 08/26/22 1420 Pulse 60 08/26/22 1420 Resp 14 08/26/22 1420 SpO2 96 % 08/26/22 1420 Anesthesia Post Evaluation Patient location during evaluation: PACU Patient participation: complete - patient participated Level of consciousness: awake and alert Pain management: adequate Airway patency: patent Cardiovascular status: acceptable Respiratory status: acceptable Hydration status: acceptable No notable events documented.[facility]02-13-2023 Note Peripheral Block Patient location during procedure: pre-op Start time: 08/26/2022 11:50 AM End time: 08/26/2022 11:57 AM Reason for block: primary anesthetic and at surgeon's request Staffing Performed: anesthesiologist Anesthesiologist: Grace Gordon MD Preanesthetic Checklist Completed: patient identified, IV checked, site marked, risks and benefits discussed, surgical consent, monitors and equipment checked, pre-op evaluation and timeout performed Peripheral Block Patient position: supine Prep: ChloraPrep Patient monitoring: continuous pulse ox Block type: supraclavicular brachial plexus Laterality: left Injection technique: single-shot Guidance: ultrasound guided Needle Needle type: short-bevel Needle gauge: 22 G Needle length: 2 in Needle localization: ultrasound guidance Medications Administered FentaNYL (SUBLIMAZE) IV, 50 mcg bupivacaine HCl (Marcaine) 0.5 % (5 mg/mL) injection, 75 mg Assessment Injection assessment: negative aspiration for heme, no paresthesia on injection, incremental injection and local visualized surrounding nerve on ultrasound Heart rate change: no Slow fractionated injection: [facility]UnC[facility] NotePatient: Apolinar Norman Procedure Information Date/Time: 08/26/22 1200 Procedure: BURSECTOMY OF THE OLECRANON (Left: Elbow) Location: [facility] OR [address] [place] [address] OR Surgeons: Nuvia Joseph MD Relevant Problems No relevant active problems Clinical information reviewed: Tobacco Allergies Meds Med Hx Surg Hx Fam Hx Soc Hx Physical Exam Airway Mallampati: I Neck ROM: full Cardiovascular - normal exam Rhythm: regular Rate: normal Dental - normal exam Pulmonary - normal exam Abdominal - normal exam Past Medical History: Diagnosis Date ??? Artificial cardiac pacemaker ??? Chronic kidney disease ??? Coronary artery disease ??? Diabetes mellitus (CMS/HCC) ??? Hyperlipidemia ??? Hypertension Anesthesia Plan ASA 3 regional The patient is not a current smoker. intravenous induction Anesthetic plan and risks discussed with patient. Plan discussed with CAA. Additional Equipment Request[facility]Un[facility] Note Orthopedic Surgery Subjective New Patient, Edema, and Drainage from Incision of the Left Elbow 08/11/22 Apolinar Nomran is a 82 y.o. year old [id number] male presenting symptomatic draining left olecranon bursa. Patient has had refractory draining from the left olecranon bursa related to when he had sustained a fall in February of last year. He has undergone different forms of treatment including aspirations and steroid injections but has not had any complete resolution. From the history it appears as if he has not yet been complicated with any infection. He reports he has obtained cardiac clearance to proceed with surgical treatment. Patient History Past Surgical History: Procedure Laterality Date CARDIAC SURGERY CAROTID STENT No past medical history on file. Objective General: Body mass index is 27.89 kg/m???. No acute distress, comfortable Respiratory: Unlabored breathing with normal rate, no cough Cardiovascular: Warm well perfused extremities Psych: Appropriate mood behavior MSK: Examination of his left elbow revealed swelling of the left olecranon bursa measuring 5X 5 cm. There is no significant erythema. There is minimal serous discharge present. Range of motion was normal. He was assessed to be neurovascular intact. Assessment/Plan Apolinar Norman is a 82 y.o. year old male with presenting with symptomatic left olecranon bursa probable aseptic bursitis. Patient was scheduled to proceed with excision left olecranon bursa.[facility]01-26-2023 Evaluation note* Encounter Date Diagnosis Assessment Notes Treatment Notes Treatment Clinical Notes Jul, Congestive heart failure, unspecified HF chronicity, unspecified heart failure type (ICD-10 - I50.9) [facility] Other 10-12-2022 Evaluation note* Encounter Date Diagnosis Assessment Notes Treatment Notes Treatment Clinical Notes Apr, Congestive heart failure, unspecified HF chronicity, unspecified heart failure type (ICD-10 - I50.9) [facility] Other 10-10-2022 Evaluation note* Encounter Date Diagnosis Assessment Notes Treatment Notes Treatment Clinical Notes Apr, Chronic kidney disease, stage IV (severe) (ICD-10 - N18.4) Patient has mild CKD likely from arterionephroscle rosis. Baseline creatinine fluctuate depending on volume status. Serum creatinine from few days ago 2.7 mg/dL which is seem his baseline. Currently on Lasix 40 mg p.o. daily. Volume is very well controlled. Blood pressure seems reasonably controlled. Patient is not on EDILMA inhibitor or ARB due to kidney function fluctuating. Advised the patient to avoid all NSAIDs and to follow low-salt diet to avoid CHF exacerbation. I will continue to check renal function panel every 3 to 4 months Apr, Anemia in chronic kidney disease (ICD-10 - D63.1) Last hemoglobin is low at 9.3 g/dL. I will check iron storage study along with folate and vitamin B12. There is no need for ROSENDA Apr, Primary hypertension (ICD-10 - I10) Blood pressure seems reasonably controlled. Patient on metoprolol and isosorbide in addition to Lasix. I asked the patient to follow low-salt diet and to monitor his blood pressure at home from Apr, Congestive heart failure, unspecified HF chronicity, unspecified heart failure type (ICD-10 - I50.9) Patient follows with Dr. Murdock in cardiology office. Patient has history of A. fib along with peripheral vascular disease. Patient is on amiodarone, Plavix and aspirin. Patient has history of heart failure. Seems compensating. Heart rate is well controlled. I will continue same dose of metoprolol and Lasix Apr, Diabetes mellitus type 2 in nonobese (ICD-10 - E11.9) Patient follows with his PCP. Seems well controlled. [facility] Other 08-24-2022 Evaluation note* Encounter Date Diagnosis Assessment Notes Treatment Notes Treatment Clinical Notes Feb, CKD (chronic kidney disease) stage 4, GFR 15-29 ml/min (ICD-10 - N18.4) [facility] Other 08-04-2022 Progress note Author Emilia Pro [facility] February 14, 2022 5:02pm Note Date/Time February 14, 2022 5:0 0pm [facility] [address] [place], [place] [id number] Cardiology Progress Note Signed Patient: Apolinar Norman MR#: [id number] [birth year] : 1940 Acct:[id number] Age/Sex: 82 / M Adm Date: 2 Loc: 4P Room: [address] [place] [address] Type: ADM IN Attending Dr: Mere Nelson MD Copies to: ~ Date of Service: 02/14/2022 Subjective Principal diagnosis: NSTEMI, CHF, PVD, CKD Interval history: Patient seen today, no complaints of angina, remains on O2 by nasal cannula withminimal respiratory impairment at baseline. Serum creatinine continues to climb to 3.5; therefore no PCI will be arranged for tomorrow. Detailed discussion regards to risk of MARIBEL, dialysis discussed with patient, and preferably I do not prefer to accelerate his renal failure to end- stage renal disease with dialysis with intervention. Remains on appropriate therapies, will continue medical therapy/conservative approach for this time. Patient professes that he would like to be discharged, he is stable from a cardiac standpoint and agreeably can be discharged however, primary service and/or pulmonary will need to assess his pulmonary status and stability for independence. Exam Physical Exam Vital Signs: Temp Pulse Resp BP Pulse Ox O2 Del Method O2 Flow Rate 97.7 F 64 20 137/66 93 L Nasal Cannula 5 02/14/22 15:41 02/14/22 15:51 02/14/22 15:51 02/14/22 15:41 02/14/22 15:41 02/14/22 15:41 02/14/22 08:21 FiO2 55 02/14/22 00:13 Const General: cooperative, comfortable, no acute distress, disheveled and ill appearing Orientation: alert, awake and oriented x3 HEENT Head: normal to inspection Neck Neck: normal visual inspection Chest Chest palpation & inspection: normal inspection of the chest Resp Effort & Inspection: able to speak in complete sentences and abnormal respiratory pattern Auscultation: bronchovesicular breath sounds and crackles Cardio Palpation: normal PMI Rate: regular rate Rhythm: regular rhythm Heart Sounds: S1 normal and S2 normal GI Palpation: soft Skin General: no rashes or lesions noted Neuro General: patient alert, patient awake and patient oriented x3 Cognition: normal cognition Speech: speech normal Extrem General: no clubbing, cyanosis or edema Objective Labs CBC & Chem 7: 02/14/22 04:41 02/14/22 04:41 Labs: Laboratory Results - last 24 hr 02/13/22 02/14/22 02/14/22 21:59 04:41 04:41 Corrected WBC 9.1 Uncorrected WBC Count 9.1 RBC 2.82 L Hgb 9.3 L Hct 27.6 L MCV 98.0 MCH 33.0 MCHC 33.7 RDW 13.7 Plt Count 163 MPV 9.9 Neut % (Auto) 93.2 Lymph % (Auto) 3.4 [place] % (Auto) 3.2 Eos % (Auto) 0.0 Baso % (Auto) 0.2 Neut # (Auto) 8.5 H Lymph # (Auto) 0.3 L [place] # (Auto) 0.3 Eos # (Auto) 0.0 Baso # (Auto) 0.0 Nucleated RBC % (auto) 0.0 PHA Creatinine Clear 18.17 Sodium 136 Potassium 3.7 Chloride 103 Carbon Dioxide 23.1 BUN 55 H Creatinine 3.50 H Est GFR ( Amer) 20 Est GFR (Non-Af Amer) 17 Glucose 212 H POC Glucose 191 POC Glucose Comment Calcium 8.7 02/14/22 02/14/22 07:18 11:12 Corrected WBC Uncorrected WBC Count RBC Hgb Hct MCV MCH MCHC RDW Plt Count MPV Neut % (Auto) Lymph % (Auto) [place] % (Auto) Eos % (Auto) Baso % (Auto) Neut # (Auto) Lymph # (Auto) [place] # (Auto) Eos # (Auto) Baso # (Auto) Nucleated RBC % (auto) PHA Creatinine Clear Sodium Potassium Chloride Carbon Dioxide BUN Creatinine Est GFR ( Amer) Est GFR (Non-Af Amer) Glucose POC Glucose 215 283 POC Glucose Comment Glu2: cleaned meter Glu2: cleaned meter Calcium A&P - Cardiology (1) Coronary artery disease: Assessment/Problem Details: Longstanding history of coronary disease with previous surgical intervention andother coronary interventions. Code(s): I25.10 - Atherosclerotic heart disease of [place] coronary artery without angina pectoris Status: Acute (2) Chest pain: Assessment/Problem Details: Chest pain may be angina but on the other hand it could be gastrointestinal. Curiously had no symptoms yesterday with exertion but last night he had symptomsat rest recumbent in bed. Usually if there is rest pain there is ST segment change and/or troponin rise consistent with acute coronary syndrome (plaque rupture). Code(s): R07.9 - Chest pain, unspecified Status: Acute (3) CHF (congestive heart failure): Code(s): I50.9 - Heart failure, unspecified Status: Acute Plan: Agree with nephrology, diuresis (4) Acute coronary syndrome: Assessment/Problem Details: Hold off on PCI until serum creatinine is plateaued or declining Code(s): I24.9 - Acute ischemic heart disease, unspecified Status: Acute Plan Conservative therapy with heparin and his home regimen. Documented By: Emilia Pro DO 02/14/22 5931 Signed By: <Electronically signed by Emilia Pro DO> 02/14/22 1702 [facility] Work Phone: 1([phone]) 910-203208-04-2022 Progress note Author Mere Nelson [facility] February 14, 2022 1:40pm Note Date/Time February 14, 2022 1:4 0pm [facility] [address] [place] [address] Hospitalist Progress Note Signed Patient: Apolinar Norman MR#: [id number] [birth year] : 1940 Acct:[id number] Age/Sex: 82 / M Adm Date: 2 Loc: Room: [address] [place] [address] Type: ADM IN Attending Dr: Mere Nelson MD Copies to: ~ Date of Service: 02/14/2022 Subjective Subjective Narrative: Patient seen at bedside, claims to feel about the same as yesterday. Complains of dry cough with no hemoptysis. Denies pleuritic pain or dyspnea. Patient complains of shortness of breath with exertion. Patient denies chest pain or palpitations. Patient denies constipation diarrhea or abdominal pain. Patient mentioned his calf claudication with exertion. Exam Physical Exam Vital Signs: Temp Pulse Resp BP Pulse Ox O2 Del Method O2 Flow Rate 97.9 F 68 20 118/45 L 98 Nasal Cannula 5 02/14/22 04:00 02/14/22 08:20 02/14/22 08:20 02/14/22 04:00 02/14/22 04:00 02/14/22 08:21 02/14/22 08:21 FiO2 55 02/14/22 00:13 Narrative: Gen: Pleasant, patient in no acute distress Neuro: awake and alert CV: RRR no murmurs, gallops, or rubs. No UE or LE edema. Left lower extremity slightly pale. Pulm: CTA b/l no wheezes, crackles, or rhonchi Objective Lab Results CBC & Chem 7: 02/14/22 04:41 02/14/22 04:41 Meds Allergies and Active Meds Allergies levofloxacin Allergy (Verified 02/10/22 06:20) Rash Penicillins Allergy (Verified 02/10/22 06:20) Swelling, rash Active Meds: Active Medications Generic Name Dose Route Start Last Admin Trade Name Freq PRN Reason Stop Dose Admin Acetaminophen 650 mg 02/10/22 10:40 02/10/22 21:35 Acetaminophen 325 Mg Tablet PO 02/10/23 10:39 650 mg Q6HR PRN Administration Pain Scale 1 - 3 or fever Albuterol/Ipratropium 3 ml 02/12/22 20:00 02/14/22 08:18 Ipratropium/Albuterol 0.5-3 Mg 3 Ml Ampul.Neb INHALATION 02/12/23 19:59 3 ml QID.RESP REVA Administration Amiodarone HCl 200 mg 02/11/22 09:00 02/13/22 10:00 Amiodarone 200 Mg Tablet PO 02/11/23 08:59 200 mg DAILY REVA Administration Ascorbic Acid 500 mg 02/11/22 09:00 02/13/22 10:00 Ascorbic Acid 500 Mg Tablet PO 02/11/23 08:59 500 mg DAILY REVA Administration Aspirin 81 mg 02/11/22 09:00 02/13/22 10:00 Aspirin 81 Mg Tablet. PO 02/11/23 08:59 81 mg DAILY REVA Administration Atorvastatin Calcium 80 mg 02/10/22 22:00 02/13/22 22:00 Atorvastatin 80 Mg Tablet PO 02/10/23 21:59 80 mg QHS REVA Administration Clopidogrel Bisulfate 75 mg 02/11/22 09:00 02/13/22 10:00 Clopidogrel Bisulfate 75 Mg Tablet PO 02/11/23 08:59 75 mg DAILY REVA Administration Dextrose 0 gm 02/10/22 10:45 Dextrose 50% In Water 25 Gm/50 Ml Syringe IV-PUSH 02/10/23 10:44 PRN PRN Hypoglycemia Dicyclomine HCl 20 mg 02/10/22 14:00 02/13/22 22:00 Dicyclomine 20 Mg Tablet PO 02/10/23 13:59 20 mg QID REVA Administration Doxycycline Hyclate 100 mg 02/12/22 21:00 02/13/22 22:00 Doxycycline Hyclate 100 Mg Tablet PO 100 mg BID REVA Administration Famotidine 20 mg 02/14/22 09:00 Famotidine 20 Mg Tablet PO 02/14/23 08:59 Q48H REVA Furosemide 40 mg 02/11/22 14:00 02/12/22 21:26 Furosemide 40 Mg/4 Ml Vial IV-PUSH 02/11/23 13:59 40 mg TID REVA Administration Glucose 0 gm 02/10/22 10:45 Dextrose 40% Gel 15 Gm Tube PO 02/10/23 10:44 PRN PRN Hypoglycemia Guaifenesin 1,200 mg 02/12/22 21:00 02/13/22 22:00 Guaifenesin 600 Mg Tab.Er.12h PO 02/12/23 20:59 1,200 mg BID REVA Administration Heparin Sodium (Porcine) 3,900 unit 02/10/22 14:03 02/12/22 13:46 Heparin *Protocol Bolus* 5,000 Unit/Ml Vial 40 unit/kg (3900 unit) 02/10/23 14:02 3,900 unit IV-PUSH Administration PROTOCOL PRN PTT 40-53 Heparin Sodium (Porcine) 4,000 unit 02/10/22 14:03 Heparin *Protocol Bolus* 5,000 Unit/Ml Vial IV-PUSH 02/10/23 14:02 PROTOCOL PRN PTT < 40 Nitroglycerin/Dextrose 50 mg in 250 mls @ 1.5 mls/hr 02/10/22 16:00 02/13/22 19:08 Nitroglycerin 50 Mg-*D5w* IV 02/10/23 15:59 Not Given .Q24H REVA Protocol 5 MCG/MIN Insulin Aspart 0 units 02/10/22 12:00 02/13/22 22:00 Insulin Aspart 300 Units/3 Ml Insuln.Pen SUBCUT 02/10/23 11:59 1 units TID.WM.HS REVA Administration Protocol Levothyroxine Sodium 100 mcg 02/10/22 18:00 02/14/22 05:35 Levothyroxine 100 Mcg Tablet PO 02/10/23 17:59 100 mcg DAILY@0630 REVA Administration Melatonin 5 mg 02/13/22 22:00 02/13/22 22:00 Melatonin 5 Mg Tablet PO 02/13/23 21:59 5 mg QHS REVA Administration Methylprednisolone Sodium Succinate 40 mg 02/12/22 22:00 02/14/22 05:35 Methylprednisolone Sod Succ/Pf 40 Mg/Ml (1ml) Vial IV-PUSH 02/12/23 21:59 40 mg Q8HR REVA Administration Metoprolol Succinate 100 mg 02/10/22 18:00 02/13/22 10:00 Metoprolol Succinate 100 Mg Tab.Er.24h PO 02/10/23 17:59 100 mg DAILY REVA Administration Omeprazole 40 mg 02/11/22 09:00 02/13/22 10:00 Omeprazole 20 Mg Capsule.Dr PO 02/11/23 08:59 40 mg DAILY REVA Administration Sodium Chloride 0 ml 02/10/22 06:18 Sodium Chloride 0.9 % 10 Ml Syringe IV-PUSH 02/10/23 06:17 PRN PRN Flush Sodium Chloride 0 ml 02/10/22 14:00 02/14/22 05:47 Sodium Chloride 0.9 % 10 Ml Syringe IV-PUSH 02/10/23 13:59 Not Given QSHIFT REVA Sodium Chloride 0 ml 02/11/22 10:37 02/12/22 09:07 Sodium Chloride 0.9 % 10 Ml Syringe IV-PUSH 02/11/23 10:36 10 ml PRN PRN Administration Flush A&P - Hospitalist Assessment/Plan (1) Acute respiratory failure with hypoxia: (2) Acute on chronic diastolic heart failure: (3) Acute kidney injury: (4) Peripheral vascular disease: (5) Hypertension: (6) Hyperlipidemia: (7) Acute coronary syndrome: (8) Chest pain: (9) Diabetes mellitus, type 2: Plan Assessment: Acute Problems: 1.) Acute Coronary Syndrome * History of 3 vessel coronary artery bypass grafting; pacemaker * Heart catheterization April 2021 w/ no intervention 2.) Chest pain * Sudden chest pain, no STEMI EKG changes * Serial EKG shows 1st degree AV block, incomplete left bundle branch block, occasional premature ventricular complexes per report * Echocardiogram 55-60% ejection fraction w/ severe left atrial dilation, mild left ventricular concentric hypertrophy, right ventricular pressure consistent with pulmonary hypertension, mild to moderate tricuspid regurgitation, and borderline right atrial dilation per report. Aortic and mitral valve moderately sclerotic with mild mitral annular calcification per report. 3.) Acute on chronic diastolic heart failure * Chest X-ray with mild cardiomegaly and vascular congestion; possible pulmonary edema. * Chest CT shows a mildly aneurysmal ascending aorta measuring 4.1 cm in diameter, atherosclerotic disease of aorta and great vessels, borderline cardiomegaly, obstructive lung disease, pleural parenchymal changes per report 4.) Acute kidney injury on chronic kidney disease * Stage IV at baseline, progressing recently. Creatinine 3.5 today as compared to 3.26 yesterday. BUN 55 today as compared to 47 yesterday * Glucose trending up at 212 as compared to 176 yesterday * Renal US shows asymmetric renal sizes w/ right kidney measuring 15 x 7.5 cm and left kidney measures 9.4 x 5.6 cm. Likely vascular disease. * Spoke with straight edger, patient is likely progressing towards dialysis 5.) Acute hypoxic respiratory failure. * Patient refuses BiPAP, wearing Ventimask.? Pulse oximetry 98% on 5L nasal cannula (02/14/2022 08:00). Chronic Problems: * Coronary artery disease * DM type II (Diabetes mellitus type 2) * GERD (gastroesophageal reflux disease) * Hyperlipidemia * Hypertension * Peripheral vascular disease w/ stenting of LLE Plan: Creatinine has been trending and possibility of hemodialysis has been discussed with patient and his daughter.?Currently being managed by nephrology. Luna catheter has been placed to measure output accurately.? His weight has decreasedsince admission but continues to require supplemental oxygen. Patient refused BiPAP mask last night, currently on Venti mask. CT chest without contrast obtainedwhich showed interstitial thickening and groundglass density at the posterior upper and both lower lobes.?On admission COVID, RSV and flu test was negative.? Patient has dry cough and remains afebrile without leukocytosis. Suspecting fluid overload.? Currently on nitroglycerin and heparin drip. Limited echo obtained yesterday showing EF of 55 to 60% with mild concentric LVH.?Moderate pulmonary hypertension and severely dilated left atrium.?No prior echocardiogramto compare. Cardiology will continue monitor renal function and possibly proceeding Friday morning cardiac catheterization. Patient is on IV steroid and doxycycline for COPD exacerbation and cover for atypical pneumonia.? He has not been able to provide sputum sample so far.? Patient mentioned having history of heavy smoking but quit smoking in 1982.? He also worked at [employer] with exposure to plastics.?He does not use oxygen at home.? Will add low-dose basal insulin for better diabetic control since patient is on IV steroid. Continue taper oxygen as tolerated. Documented By: Mere Nelson MD 02/14/22 0934 Signed By: <Electronically signed by Mere Nelson MD> 02/14/22 1340 [facility] Work Phone: [phone] Progress note Author Sophia Woo [facility] February 14, 2022 12:42pm Note Date/Time February 14, 2022 12: 42pm [facility] [address] [place] [address] Nephrology Progress Note Signed Patient: Apolinar Norman MR#: [id number] [birth year] : 1940 Acct:[id number] Age/Sex: 82 / M Adm Date: 2 Loc: Room: [address] [place] [address] Type: ADM IN Attending Dr: Mere Nelson MD Copies to: ~ Date of Service: 02/14/2022 Subjective Subjective Narrative: Mr. Norman is an 82-year-old white gentleman with history of CAD s/p CABG, DM2, PAD and progressive CKD over the last few years. Patient presented to the ER on02/10 with severe crushing chest pain that wake him up from sleep. He had nitroglycerin with no relief so he decided to come to the ER. He had additionalnitroglycerin and aspirin on route with improvement of chest pain. EKG and ED showed ST segment depression. Dr. Pro was contacted from the ER and the patient was started on heparin drip. On arrival, his creatinine was 2.93 mg/dL that higher from creatinine 2.7 on December 2021 and 2.57 on April 2021. The family and the patient did note that he has CKD that seems to be progressing and possibly will need dialysis in the future however never been evaluated by nephrology but he supposed to see 1 soon.. Recently lisinopril was stopped withhope of improvement of renal function. Nephrology was consulted during hospitalstay considering that the patient may need cardiac cath and contrast exposure during hospital stay Patient has DM2 for many years however currently is diet controlled. He has severe peripheral arterial disease with intermittent claudications. He was evaluated by vascular surgery and according to the family he had Co2 angiogram rather than diet because of risk of ALICIA. Is currently on Pletal with no plan ofsurgery at this point. His lab today was reviewed. Patient has mild anemia with hemoglobin of 10.1. INR 1.0. He has mild acidosis with CO2 18.4. Creatinine 2.93 and potassium 4.2. BNP was mildly elevated 494 with albumin 3.5. Initial troponin was only 17 however the second troponin is up to 754. Chest x-ray showed cardiomegaly with mild pulmonary congestion. He has been on chlorthalidone. Patient was tested negative for COVID-19 on admission. He was evaluated by cardiology, Dr. Murdock and is currently on conservative treatment pending the results of cardiac enzymes and serial EKGs. Patient stated that he has no more chest pain. He has shortness of breath on mild exertion. He has generalized fatigability with decreased endurance. No nausea or vomiting. No abdominal pain. No hematemesis or melena. He has no urinary symptoms. No history of kidney stones. Interval history: Patient was seen and examined in his room. Oxygenation is better. Patient is down to nasal cannula at 5 L/min Denied ongoing chest pain. Cardiac cath was postponed to tomorrow due to ALICIA. Serum creatinine continues to rise despite holding diuretics and intravascular volume expansion Patient remains on methylprednisone Denied nausea vomiting. Denied diarrhea or abdominal pain. Luna catheter remains in place which is draining yellow urine CT chest without contrast shows COPD changes along with interstitial thickening and groundglass changes in both lower and upper lobes Exam Physical Exam Vital Signs: Temp Pulse Resp BP Pulse Ox O2 Del Method O2 Flow Rate 97.7 F 67 20 146/68 H 92 L Nasal Cannula 5 02/14/22 11:14 02/14/22 12:01 02/14/22 12:01 02/14/22 11:14 02/14/22 11:14 02/14/22 11:14 02/14/22 08:21 FiO2 55 02/14/22 00:13 Narrative: General: No acute distress. On V mask at 14 L/min Head :atraumatic normocephalic Eyes: PERRLA. Pale conjunctiva Neck: no JVD no bruit. Heart: S1-S2. RRR Respiratory: There is no crackles by auscultation. There is bilateral rhonchi. No wheezing Abdomen: Soft, positive bowel sounds,no tenderness. Neurology: Awake alert oriented x3. No focal deficits Extremity. No cyanosis. Trace edema of lower extremities Skin: No skin rash Objective Intake and Output I&O: Intake & Output 02/11/22 02/12/22 02/13/22 02/14/22 23:59 23:59 23:59 23:59 Intake Total 1440 / 1440 1885 / 1885 1020 / 1020 150 / 150 Output Total 2900 / 2900 1700 / 1700 1400 / 1400 450 / 450 Balance -1460 / -1460 185 / 185 -380 / -380 -300 / -300 Weight 96.8 kg 91 kg 90 kg 89.6 kg Meds and Allergies Meds: Active Medications Acetaminophen (Acetaminophen 325 Mg Tablet) 650 mg PO Q6HR PRN PRN Reason: Pain Scale 1 - 3 or fever Stop: 02/10/23 10:39 Last Admin: 02/10/22 21:35 Dose: 650 mg Albuterol/Ipratropium (Ipratropium/Albuterol 0.5-3 Mg 3 Ml Ampul.Neb) 3 ml INHALATION QID.RESP REVA Stop: 02/12/23 19:59 Last Admin: 02/14/22 12:01 Dose: 3 ml Amiodarone HCl (Amiodarone 200 Mg Tablet) 200 mg PO DAILY COUNTS INCLUDE 234 BEDS AT THE [facility] Stop: 02/11/23 08:59 Last Admin: 02/14/22 09:35 Dose: 200 mg Ascorbic Acid (Ascorbic Acid 500 Mg Tablet) 500 mg PO DAILY COUNTS INCLUDE 234 BEDS AT THE [facility] Stop: 02/11/23 08:59 Last Admin: 02/14/22 09:35 Dose: 500 mg Aspirin (Aspirin 81 Mg Tablet.) 81 mg PO DAILY COUNTS INCLUDE 234 BEDS AT THE [facility] Stop: 02/11/23 08:59 Last Admin: 02/14/22 09:35 Dose: 81 mg Atorvastatin Calcium (Atorvastatin 80 Mg Tablet) 80 mg PO QHS COUNTS INCLUDE 234 BEDS AT THE [facility] Stop: 02/10/23 21:59 Last Admin: 02/13/22 22:00 Dose: 80 mg Clopidogrel Bisulfate (Clopidogrel Bisulfate 75 Mg Tablet) 75 mg PO DAILY COUNTS INCLUDE 234 BEDS AT THE [facility] Stop: 02/11/23 08:59 Last Admin: 02/14/22 09:35 Dose: 75 mg Dextrose (Dextrose 50% In Water 25 Gm/50 Ml Syringe) 0 gm IV-PUSH PRN PRN PRN Reason: Hypoglycemia Stop: 02/10/23 10:44 Dicyclomine HCl (Dicyclomine 20 Mg Tablet) 20 mg PO QID REVA Stop: 02/10/23 13:59 Last Admin: 02/14/22 09:35 Dose: 20 mg Doxycycline Hyclate (Doxycycline Hyclate 100 Mg Tablet) 100 mg PO BID COUNTS INCLUDE 234 BEDS AT THE [facility] Last Admin: 02/14/22 09:35 Dose: 100 mg Famotidine (Famotidine 20 Mg Tablet) 20 mg PO Q48H COUNTS INCLUDE 234 BEDS AT THE [facility] Stop: 02/14/23 08:59 Furosemide (Furosemide 40 Mg/4 Ml Vial) 40 mg IV-PUSH TID COUNTS INCLUDE 234 BEDS AT THE [facility] Stop: 02/11/23 13:59 Last Admin: 02/12/22 21:26 Dose: 40 mg Glucose (Dextrose 40% Gel 15 Gm Tube) 0 gm PO PRN PRN PRN Reason: Hypoglycemia Stop: 02/10/23 10:44 Guaifenesin (Guaifenesin 600 Mg Tab.Er.12h) 1,200 mg PO BID COUNTS INCLUDE 234 BEDS AT THE [facility] Stop: 02/12/23 20:59 Last Admin: 02/14/22 09:35 Dose: 1,200 mg Heparin Sodium (Porcine) (Heparin *Protocol Bolus* 5,000 Unit/Ml Vial) 3,900 unit 40 unit/kg (3900 unit) IV-PUSH PROTOCOL PRN PRN Reason: PTT 40-53 Stop: 02/10/23 14:02 Last Admin: 02/12/22 13:46 Dose: 3,900 unit Heparin Sodium (Porcine) (Heparin *Protocol Bolus* 5,000 Unit/Ml Vial) 4,000 unit IV-PUSH PROTOCOL PRN PRN Reason: PTT < 40 Stop: 02/10/23 14:02 Nitroglycerin/Dextrose (Nitroglycerin 50 Mg-*D5w*) 50 mg in 250 mls @ 1.5 mls/hr IV .Q24H COUNTS INCLUDE 234 BEDS AT THE [facility]; Protocol Stop: 02/10/23 15:59 Last Admin: 02/13/22 19:08 Dose: Not Given Insulin Aspart (Insulin Aspart 300 Units/3 Ml Insuln.Pen) 0 units SUBCUT TID.WM.HS COUNTS INCLUDE 234 BEDS AT THE [facility]; Protocol Stop: 02/10/23 11:59 Last Admin: 02/14/22 12:30 Dose: 3 units Levothyroxine Sodium (Levothyroxine 100 Mcg Tablet) 100 mcg PO DAILY@0630 COUNTS INCLUDE 234 BEDS AT THE [facility] Stop: 02/10/23 17:59 Last Admin: 02/14/22 05:35 Dose: 100 mcg Melatonin (Melatonin 5 Mg Tablet) 5 mg PO QHS COUNTS INCLUDE 234 BEDS AT THE [facility] Stop: 02/13/23 21:59 Last Admin: 02/13/22 22:00 Dose: 5 mg Methylprednisolone Sodium Succinate (Methylprednisolone Sod Succ/Pf 40 Mg/Ml (1ml) Vial) 40 mg IV-PUSH Q8HR REVA Stop: 02/12/23 21:59 Last Admin: 02/14/22 05:35 Dose: 40 mg Metoprolol Succinate (Metoprolol Succinate 100 Mg Tab.Er.24h) 100 mg PO DAILY COUNTS INCLUDE 234 BEDS AT THE [facility] Stop: 02/10/23 17:59 Last Admin: 02/14/22 09:35 Dose: 100 mg Omeprazole (Omeprazole 20 Mg Capsule.Dr) 40 mg PO DAILY REVA Stop: 02/11/23 08:59 Last Admin: 02/14/22 09:35 Dose: 40 mg Sodium Chloride (Sodium Chloride 0.9 % 10 Ml Syringe) 0 ml IV-PUSH PRN PRN PRN Reason: Flush Stop: 02/10/23 06:17 Sodium Chloride (Sodium Chloride 0.9 % 10 Ml Syringe) 0 ml IV-PUSH QSHIFT COUNTS INCLUDE 234 BEDS AT THE [facility] Stop: 02/10/23 13:59 Last Admin: 02/14/22 05:47 Dose: Not Given Sodium Chloride (Sodium Chloride 0.9 % 10 Ml Syringe) 0 ml IV-PUSH PRN PRN PRN Reason: Flush Stop: 02/11/23 10:36 Last Admin: 02/12/22 09:07 Dose: 10 ml Allergies levofloxacin Allergy (Verified 02/10/22 06:20) Rash Penicillins Allergy (Verified 02/10/22 06:20) Swelling, rash Results Labs CBC & Chem 7: 02/14/22 04:41 02/14/22 04:41 Labs: 02/14/22 04:41 BUN 55 H Creatinine 3.50 H Radiology Impressions Impressions - last 24 hours: Any impression(s) listed above is documentation that was entered by the reading physician into a diagnostic report(s) for Apolinar Norman. I have reviewed the report(s) and am incorporating any findings in the treatment plan of this patient where applicable. A&P - Nephrology Assessment/Plan (1) Chronic kidney disease (CKD): Assessment/Problem Details: Patient seems to have progressive CKD in the setting of DM2, HTN and atherosclerotic renovascular disease. Patient has CKD stage IV at baseline. Serum creatinine was 2.5 mg/dL with GFR 24 mL/min in April 2021. UA is benignexcept mild protein. Renal ultrasound shows asymmetric renal sizes with the right kidney measures 15 x 7.5 cm and the left kidney measures 9.4 x 5.6 cm. This is likely related to vascular disease (2) Acute coronary syndrome: Assessment/Problem Details: Patient presented with chest pressure currently with elevated troponin. He is on heparin drip and nitroglycerin drip for acute coronary syndrome. Cardiology is following. The plan to do cardiac cath tomorrow Friday (3) CHF (congestive heart failure): Assessment/Problem Details: Chest x-ray showed cardiomegaly and pulmonary congestion. He has bilateral lower extremity edema 2+. He has shortness of breath on mild exertion. Echocardiogram in February 11 showed ejection fraction 50 to 60%, moderate aortic and mitral valve stenosis with moderate pulmonary hypertension and mild to moderate tricuspid regurgitation. This has improved with diuretics (4) Hypertension: Assessment/Problem Details: Blood pressure is better controlled. Edema has improved with diuretics. Currently off Lasix (5) Diabetes mellitus, type 2: Assessment/Problem Details: Patient has history of diabetes mellitus however currently on diet only. Patient stated that he takes diabetes medications however I do not see anything listed in his home medications. Patient is not on insulin with meals (6) Acute kidney injury: Assessment/Problem Details: Acute kidney injury is likely from cardiorenal syndrome. Urinalysis was negative for hematuria. It showed only mild proteinuria. Patient responded well to diuretics with better urine output (7) Hypoxia: Assessment/Problem Details: Likely combination of fluid overload and COPD exacerbation. This has improved with steroid treatment Plan * Acute kidney injury is likely from cardiorenal syndrome as the patient presented with acute coronary syndrome with CHF * Serum creatinine continues to increase slowly. Serum creatinine is slightly higher at 3.5 mg deciliter from 3.3 mg deciliter. Diuretics currently on hold for the anticipated cardiac cath tomorrow. * I will give the patient 1 L of normal saline today over 10 hours * There is no urgent need for hemodialysis. I will continue to evaluate renal function panel along with volume status and electrolytes daily * I explained to the patient and his daughter at bedside that patient at risk for worsening kidney function with IV contrast exposure and he might need brenda lysis . I explained to them that cardiac cath overweighs the risk of worsening kidney function as he has active ACS with a history of CABG. They verbalized understanding * No need for replacement * Hemoglobin is 9.3 g/dL. I will check iron storage study along with folate and vitamin B12. * Check renal function panel in the morning * Cardiology is following for ACS. Cardiac cath planned for tomorrow. Currently on heparin drip * Continue methylprednisone for COPD/pneumonitis exacerbation Plan of care was discussed with the primary service attending Dr. Nelson Renal team will continue to follow. Call if any question. Documented By: Sophia Woo MD 02/14/22 1236 Signed By: <Electronically signed by Sophia Woo MD> 02/14/22 1242 [facility] Work Phone: [phone]) 954-951208-03-2022 Progress note Author [facility] February 13, 2022 3:46pm Note Date/Time February 13, 2022 3:4 4pm [facility] [address] [place] [address] Cardiology Progress Note Signed Patient: Apolinar Norman MR#: [id number] [birth year] : 1940 Acct:[id number] Age/Sex: 82 / M Adm Date: 2 Loc: Room: [address] [place] [address] Type: ADM IN Attending Dr: Mere Nelson MD Copies to: ~ Date of Service: 02/13/2022 Subjective Principal diagnosis: NSTEMI, CHF, PVD Interval history: Patient now on nasal cannula. Without angina currently on heparin drip. Still has mild?moderate respiratory complaints however no angina or chest pain Serum creatinine continues to climb to 3.36 as of today therefore PCI of the vein graft to the circumflex and chicken ranch RCA are still on hold until his creatinine declines. Risk benefits alternatives again discussed with the patient at length in regards to risk of contrast-induced nephropathy and dialysis. He does understand these risks, at this time we will continue with medical therapy. We will continue to survey his renal function for the next 2 days; possibly may proceed on Friday morning. Exam Physical Exam Vital Signs: Temp Pulse Resp BP Pulse Ox O2 Del Method O2 Flow Rate 97.9 F 65 20 136/53 L 92 L Nasal Cannula 5 02/13/22 11:47 02/13/22 15:31 02/13/22 15:31 02/13/22 11:47 02/13/22 11:47 02/13/22 15:31 02/13/22 15:31 FiO2 55 02/13/22 09:55 Const General: cooperative, comfortable, no acute distress, disheveled and ill appearing Orientation: alert, awake and oriented x3 HEENT Head: normal to inspection Neck Neck: normal visual inspection Chest Chest palpation & inspection: normal inspection of the chest Resp Effort & Inspection: able to speak in complete sentences and abnormal respiratory pattern Auscultation: bronchovesicular breath sounds Cardio Palpation: normal PMI Rate: regular rate Rhythm: regular rhythm Heart Sounds: S1 normal and S2 normal GI Palpation: soft Skin General: no rashes or lesions noted Neuro General: patient alert, patient awake and patient oriented x3 Cognition: normal cognition Speech: speech normal Extrem General: no clubbing, cyanosis or edema Objective Labs CBC & Chem 7: 02/13/22 05:30 02/13/22 05:30 Labs: Laboratory Results - last 24 hr 02/12/22 02/12/22 02/12/22 16:15 19:56 21:07 Corrected WBC Uncorrected WBC Count RBC Hgb Hct MCV MCH MCHC RDW Plt Count MPV Neut % (Auto) Lymph % (Auto) [place] % (Auto) Eos % (Auto) Baso % (Auto) Neut # (Auto) Lymph # (Auto) [place] # (Auto) Eos # (Auto) Baso # (Auto) Nucleated RBC % (auto) PT INR APTT 59.2 H PHA Creatinine Clear Sodium Potassium Chloride Carbon Dioxide BUN Creatinine Est GFR ( Amer) Est GFR (Non-Af Amer) Glucose POC Glucose 180 136 POC Glucose Comment Glu2: cleaned meter Calcium 02/13/22 02/13/22 02/13/22 01:55 05:30 05:30 Corrected WBC 7.2 Uncorrected WBC Count 7.2 RBC 2.94 L Hgb 9.6 L Hct 28.5 L MCV 96.8 MCH 32.5 MCHC 33.6 RDW 13.7 Plt Count 134 L MPV 9.8 Neut % (Auto) 93.8 Lymph % (Auto) 3.4 [place] % (Auto) 2.4 Eos % (Auto) 0.0 Baso % (Auto) 0.4 Neut # (Auto) 6.8 Lymph # (Auto) 0.2 L [place] # (Auto) 0.2 Eos # (Auto) 0.0 Baso # (Auto) 0.0 Nucleated RBC % (auto) 0.0 PT INR APTT 53.8 H PHA Creatinine Clear 18.93 Sodium 136 Potassium 3.6 Chloride 102 Carbon Dioxide 23.3 BUN 47 H Creatinine 3.36 H Est GFR ( Amer) 21 Est GFR (Non-Af Amer) 18 Glucose 176 H POC Glucose POC Glucose Comment Calcium 8.3 02/13/22 02/13/22 02/13/22 05:30 07:21 11:44 Corrected WBC Uncorrected WBC Count RBC Hgb Hct MCV MCH MCHC RDW Plt Count MPV Neut % (Auto) Lymph % (Auto) [place] % (Auto) Eos % (Auto) Baso % (Auto) Neut # (Auto) Lymph # (Auto) [place] # (Auto) Eos # (Auto) Baso # (Auto) Nucleated RBC % (auto) PT 13.5 H INR 1.2 APTT 48.0 H PHA Creatinine Clear Sodium Potassium Chloride Carbon Dioxide BUN Creatinine Est GFR ( Amer) Est GFR (Non-Af Amer) Glucose POC Glucose 199 205 POC Glucose Comment Calcium 02/13/22 13:54 Corrected WBC Uncorrected WBC Count RBC Hgb Hct MCV MCH MCHC RDW Plt Count MPV Neut % (Auto) Lymph % (Auto) [place] % (Auto) Eos % (Auto) Baso % (Auto) Neut # (Auto) Lymph # (Auto) [place] # (Auto) Eos # (Auto) Baso # (Auto) Nucleated RBC % (auto) PT INR APTT 59.2 H PHA Creatinine Clear Sodium Potassium Chloride Carbon Dioxide BUN Creatinine Est GFR ( Amer) Est GFR (Non-Af Amer) Glucose POC Glucose POC Glucose Comment Calcium A&P - Cardiology (1) Coronary artery disease: Assessment/Problem Details: Longstanding history of coronary disease with previous surgical intervention andother coronary interventions. Code(s): I25.10 - Atherosclerotic heart disease of chicken ranch coronary artery without angina pectoris Status: Acute (2) Chest pain: Assessment/Problem Details: Chest pain may be angina but on the other hand it could be gastrointestinal. Curiously had no symptoms yesterday with exertion but last night he had symptomsat rest recumbent in bed. Usually if there is rest pain there is ST segment change and/or troponin rise consistent with acute coronary syndrome (plaque rupture). Code(s): R07.9 - Chest pain, unspecified Status: Acute (3) CHF (congestive heart failure): Code(s): I50.9 - Heart failure, unspecified Status: Acute Plan: Agree with nephrology, diuresis (4) Acute coronary syndrome: Assessment/Problem Details: Hold off on PCI until serum creatinine is plateaued or declining Code(s): I24.9 - Acute ischemic heart disease, unspecified Status: Acute Plan Conservative therapy with heparin and his home regimen. Documented By: Emilia Pro DO 02/13/22 1543 Signed By: <Electronically signed by Emilia Pro DO> 02/13/22 1546 [facility] Work Phone: [phone] 432-636808-03-2022 Progress note Author Mere Nelson [facility] February 13, 2022 1:40pm Note Date/Time February 13, 2022 1:4 0pm [facility] [address] [place] [address] Hospitalist Progress Note Signed Patient: Apolinar Norman MR#: [id number] [birth year] : 1940 Acct:[id number] Age/Sex: 82 / M Adm Date: 2 Loc: Room: [address] [place] [address] Type: ADM IN Attending Dr: Mere Nelson MD Copies to: ~ Date of Service: 02/13/2022 Subjective Subjective Narrative: Patient seen at bedside, claims to feel the same as yesterday. Complains of non productive cough without hemoptysis.?Denies dyspnea, pleuritic pain. Complains of claudication in his calves bilaterally with exertion prior to admission at home. Denies chest pain, shortness of breath, or palpitations. Denies chills, fatigue. Exam Physical Exam Vital Signs: Temp Pulse Resp BP Pulse Ox O2 Del Method O2 Flow Rate 98.8 F 65 24 148/80 H 92 L Venturi Mask 14 02/13/22 00:00 02/13/22 07:52 02/13/22 07:52 02/13/22 04:00 02/13/22 04:00 02/13/22 07:52 02/13/22 07:52 FiO2 55 02/13/22 07:52 Narrative: Gen: Pleasant, patient in no acute distress Neuro: awake and alert CV: RRR no murmurs, gallops, or rubs. Mild edema in lower extremities bilaterally, calves slightly pale b/l. Pulm: CTA b/l. Mild crackles at base b/l. No wheezes or rhonchi Objective Lab Results CBC & Chem 7: 02/13/22 05:30 02/13/22 05:30 Meds Allergies and Active Meds Allergies levofloxacin Allergy (Verified 02/10/22 06:20) Rash Penicillins Allergy (Verified 02/10/22 06:20) Swelling, rash Active Meds: Active Medications Generic Name Dose Route Start Last Admin Trade Name Freq PRN Reason Stop Dose Admin Acetaminophen 650 mg 02/10/22 10:40 02/10/22 21:35 Acetaminophen 325 Mg Tablet PO 02/10/23 10:39 650 mg Q6HR PRN Administration Pain Scale 1 - 3 or fever Albuterol/Ipratropium 3 ml 02/12/22 20:00 02/13/22 07:48 Ipratropium/Albuterol 0.5-3 Mg 3 Ml Ampul.Neb INHALATION 02/12/23 19:59 3 ml QID.RESP REVA Administration Amiodarone HCl 200 mg 02/11/22 09:00 02/12/22 09:04 Amiodarone 200 Mg Tablet PO 02/11/23 08:59 200 mg DAILY REVA Administration Ascorbic Acid 500 mg 02/11/22 09:00 02/12/22 09:04 Ascorbic Acid 500 Mg Tablet PO 02/11/23 08:59 500 mg DAILY REVA Administration Aspirin 81 mg 02/11/22 09:00 02/12/22 09:04 Aspirin 81 Mg Tablet. PO 02/11/23 08:59 81 mg DAILY REVA Administration Atorvastatin Calcium 80 mg 02/10/22 22:00 02/12/22 21:26 Atorvastatin 80 Mg Tablet PO 02/10/23 21:59 80 mg QHS REVA Administration Clopidogrel Bisulfate 75 mg 02/11/22 09:00 02/12/22 09:04 Clopidogrel Bisulfate 75 Mg Tablet PO 02/11/23 08:59 75 mg DAILY REVA Administration Dextrose 0 gm 02/10/22 10:45 Dextrose 50% In Water 25 Gm/50 Ml Syringe IV-PUSH 02/10/23 10:44 PRN PRN Hypoglycemia Dicyclomine HCl 20 mg 02/10/22 14:00 02/12/22 21:26 Dicyclomine 20 Mg Tablet PO 02/10/23 13:59 20 mg QID REVA Administration Doxycycline Hyclate 100 mg 02/12/22 21:00 02/12/22 21:26 Doxycycline Hyclate 100 Mg Tablet PO 100 mg BID REVA Administration Famotidine 20 mg 02/10/22 15:30 02/12/22 21:26 Famotidine 20 Mg Tablet PO 02/10/23 15:29 20 mg BID REVA Administration Furosemide 40 mg 02/11/22 14:00 02/12/22 21:26 Furosemide 40 Mg/4 Ml Vial IV-PUSH 02/11/23 13:59 40 mg TID REVA Administration Glucose 0 gm 02/10/22 10:45 Dextrose 40% Gel 15 Gm Tube PO 02/10/23 10:44 PRN PRN Hypoglycemia Guaifenesin 1,200 mg 02/12/22 21:00 02/12/22 21:26 Guaifenesin 600 Mg Tab.Er.12h PO 02/12/23 20:59 1,200 mg BID REVA Administration Heparin Sodium (Porcine) 3,900 unit 02/10/22 14:03 02/12/22 13:46 Heparin *Protocol Bolus* 5,000 Unit/Ml Vial 40 unit/kg (3900 unit) 02/10/23 14:02 3,900 unit IV-PUSH Administration PROTOCOL PRN PTT 40-53 Heparin Sodium (Porcine) 4,000 unit 02/10/22 14:03 Heparin *Protocol Bolus* 5,000 Unit/Ml Vial IV-PUSH 02/10/23 14:02 PROTOCOL PRN PTT < 40 Heparin Sodium/Sodium Chloride 25,000 unit in 250 mls @ 10 mls/hr 02/10/22 14:15 02/13/22 07:44 Heparin IV 02/13/22 11:15 1,600 units/hr .Q24H REVA 16 mls/hr Administration Protocol 1,000 UNITS/HR Nitroglycerin/Dextrose 50 mg in 250 mls @ 1.5 mls/hr 02/10/22 16:00 02/12/22 17:30 Nitroglycerin 50 Mg-*D5w* IV 02/10/23 15:59 0 mcg/min .Q24H REVA 0 mls/hr Titration Protocol 5 MCG/MIN Sodium Chloride 500 mls @ 100 mls/hr 02/13/22 07:00 02/13/22 07:44 0.9% Sodium Chloride 500 Ml IV 02/13/22 11:59 100 mls/hr .Q5H REVA Administration Insulin Aspart 0 units 02/10/22 12:00 02/12/22 22:50 Insulin Aspart 300 Units/3 Ml Insuln.Pen SUBCUT 02/10/23 11:59 Not Given TID.WM.HS REVA Protocol Levothyroxine Sodium 100 mcg 02/10/22 18:00 02/13/22 07:43 Levothyroxine 100 Mcg Tablet PO 02/10/23 17:59 100 mcg DAILY@0630 REVA Administration Methylprednisolone Sodium Succinate 40 mg 02/12/22 22:00 02/13/22 07:43 Methylprednisolone Sod Succ/Pf 40 Mg/Ml (1ml) Vial IV-PUSH 02/12/23 21:59 40 mg Q8HR REVA Administration Metoprolol Succinate 100 mg 02/10/22 18:00 02/12/22 09:04 Metoprolol Succinate 100 Mg Tab.Er.24h PO 02/10/23 17:59 100 mg DAILY REVA Administration Miscellaneous Information 1 each 02/11/22 10:37 Consult To Pharmacy MISCELLANE 02/11/23 10:36 .PHACONSULT PRN ZZ.Pharmacy Consult Protocol Omeprazole 40 mg 02/11/22 09:00 02/12/22 09:04 Omeprazole 20 Mg Capsule.Dr PO 02/11/23 08:59 40 mg DAILY REVA Administration Potassium Chloride 40 meq 02/13/22 07:00 Potassium Chloride Er 20 Meq Tab.Er.Prt PO STAT PRN Hypokalemia Sodium Chloride 0 ml 02/10/22 06:18 Sodium Chloride 0.9 % 10 Ml Syringe IV-PUSH 02/10/23 06:17 PRN PRN Flush Sodium Chloride 0 ml 02/10/22 14:00 02/13/22 07:43 Sodium Chloride 0.9 % 10 Ml Syringe IV-PUSH 02/10/23 13:59 10 ml QSHIFT REVA Administration Sodium Chloride 0 ml 02/11/22 10:37 02/12/22 09:07 Sodium Chloride 0.9 % 10 Ml Syringe IV-PUSH 02/11/23 10:36 10 ml PRN PRN Administration Flush A&P - Hospitalist Assessment/Plan (1) Acute respiratory failure with hypoxia: (2) Acute on chronic diastolic heart failure: (3) Acute kidney injury: (4) Peripheral vascular disease: (5) Acute coronary syndrome: (6) Chest pain: (7) Diabetes mellitus, type 2: (8) Hyperlipidemia: (9) Hypertension: Plan Assessment: Acute Problems: 1.) Acute Coronary Syndrome * History of 3 vessel coronary artery bypass grafting; pacemaker * Heart catheterization April 2021 w/ no intervention 2.) Chest pain * Sudden chest pain, no STEMI EKG changes * Serial EKG shows 1st degree AV block, incomplete left bundle branch block, occasional premature ventricular complexes per report * Echocardiogram 55-60% ejection fraction w/ severe left atrial dilation, mild left ventricular concentric hypertrophy, right ventricular pressure consistent with pulmonary hypertension, mild to moderate tricuspid regurgitation, and borderline right atrial dilation per report. Aortic and mitral valve moderately sclerotic with mild mitral annular calcification per report. 3.) Acute on chronic diastolic heart failure * Chest X-ray with mild cardiomegaly and vascular congestion; possible pulmonary edema. * Chest CT shows a mildly aneurysmal ascending aorta measuring 4.1 cm in diameter, atherosclerotic disease of aorta and great vessels, borderline cardiomegaly, obstructive lung disease, pleural parenchymal changes per report 4.) Acute kidney injury on chronic kidney disease * Stage IV at baseline, progressing recently. Creatinine 3.36 05:30 02/13/2022. * Renal US shows asymmetric renal sizes w/ right kidney measuring 15 x 7.5 cm and left kidney measures 9.4 x 5.6 cm. Likely vascular disease. * Spoke with straight edger, patient is likely progressing towards dialysis 5.)? Acute hypoxic respiratory failure. * Patient refuses BiPAP, wearing Ventimask. Pulse oximetry dropped to 83 at midnight last night. Currently at 92 04:00 02/13/2022. Chronic Problems: * Coronary artery disease * DM type II (Diabetes mellitus type 2) * GERD (gastroesophageal reflux disease) * Hyperlipidemia * Hypertension * Peripheral vascular disease w/ stenting of LLE Plan: Creatinine has been trending and possibility of hemodialysis has been discussed with patient and his daughter.?Currently being managed by nephrology. Luna catheter has been placed to measure output accurately.? His weight has decreasedsince admission but continues to require supplemental oxygen. Patient refused BiPAP mask last night, currently on Venti mask. CT chest without contrast obtained which showed interstitial thickening and groundglass density at the posterior upper and both lower lobes.?On admission COVID, RSV and flu test was negative. He denies having cough and remains afebrile without leukocytosis. Suspecting fluid overload.? Currently on nitroglycerin and heparin drip. Limitedecho obtained yesterday showing EF of 55 to 60% with mild concentric LVH.?Moderate pulmonary hypertension and severely dilated left atrium.?No prior echocardiogram to compare.?Cardiology planning for cardiac catheterization afternoon today. Yesterday started on IV steroid and doxycycline for COPD exacerbation and cover for atypical pneumonia. He has not been able to provide sputum sample so far. Patient mentioned having history of heavy smoking but quit smoking in 1982. He also worked at [employer] with exposure to plastics. He does not use oxygen at home. If hypoxia persists will consult pulmonary service. Documented By: Mere Nelson MD 02/13/22 0843 Signed By: <Electronically signed by Mere Nelson MD> 02/13/22 1340 [facility] Work Phone: [phone] Progress note Author Sophia Woo [facility] February 13, 2022 11:41am Note Date/Time February 13, 2022 11: 41am [facility] [address] [place] [address] Nephrology Progress Note Signed Patient: Apolinar Norman MR#: [id number] [birth year] : 1940 Acct:[id number] Age/Sex: 82 / M Adm Date: 2 Loc: Room: [address] [place] [address] Type: ADM IN Attending Dr: Mere Nelson MD Copies to: ~ Date of Service: 02/13/2022 Subjective Subjective Narrative: Mr. Norman is an 82-year-old white gentleman with history of CAD s/p CABG, DM2, PAD and progressive CKD over the last few years. Patient presented to the ER on02/10 with severe crushing chest pain that wake him up from sleep. He had nitroglycerin with no relief so he decided to come to the ER. He had additionalnitroglycerin and aspirin on route with improvement of chest pain. EKG and ED showed ST segment depression. Dr. Pro was contacted from the ER and the patient was started on heparin drip. On arrival, his creatinine was 2.93 mg/dL that higher from creatinine 2.7 on December 2021 and 2.57 on April 2021. The family and the patient did note that he has CKD that seems to be progressing and possibly will need dialysis in the future however never been evaluated by nephrology but he supposed to see 1 soon.. Recently lisinopril was stopped withhope of improvement of renal function. Nephrology was consulted during hospitalstay considering that the patient may need cardiac cath and contrast exposure during hospital stay Patient has DM2 for many years however currently is diet controlled. He has severe peripheral arterial disease with intermittent claudications. He was evaluated by vascular surgery and according to the family he had Co2 angiogram rather than diet because of risk of ALICIA. Is currently on Pletal with no plan ofsurgery at this point. His lab today was reviewed. Patient has mild anemia with hemoglobin of 10.1. INR 1.0. He has mild acidosis with CO2 18.4. Creatinine 2.93 and potassium 4.2. BNP was mildly elevated 494 with albumin 3.5. Initial troponin was only 17 however the second troponin is up to 754. Chest x-ray showed cardiomegaly with mild pulmonary congestion. He has been on chlorthalidone. Patient was tested negative for COVID-19 on admission. He was evaluated by cardiology, Dr. Murdock and is currently on conservative treatment pending the results of cardiac enzymes and serial EKGs. Patient stated that he has no more chest pain. He has shortness of breath on mild exertion. He has generalized fatigability with decreased endurance. No nausea or vomiting. No abdominal pain. No hematemesis or melena. He has no urinary symptoms. No history of kidney stones. Interval history: Patient was seen and examined in his room. Remains on high flow V mask at 14 L/min. Denied ongoing chest pain. He remains on heparin drip . Denied nausea vomiting. Denies urinary obstructive symptoms. Denied diarrhea or abdominal pain. Luna catheter was placed yesterday. Urine output around 2.3 L. Kidney function stable. Patient scheduled to have cardiac cath at 1 PM today. Currently on normal saline at 100 cc/h. Lasix was held this morning CT chest without contrast shows COPD changes along with interstitial thickening and groundglass changes in both lungs Exam Physical Exam Vital Signs: Temp Pulse Resp BP Pulse Ox O2 Del Method O2 Flow Rate 97.0 F L 71 24 134/68 98 Venturi Mask 14 02/13/22 09:55 02/13/22 11:21 02/13/22 11:21 02/13/22 09:55 02/13/22 09:55 02/13/22 09:55 02/13/22 07:52 FiO2 55 02/13/22 09:55 Narrative: General: No acute distress. On V mask at 14 L/min Head :atraumatic normocephalic Eyes: PERRLA. Pale conjunctiva Neck: no JVD no bruit. Heart: S1-S2. RRR Respiratory: There is no crackles by auscultation. There is bilateral rhonchi. No wheezing Abdomen: Soft, positive bowel sounds,no tenderness. Neurology: Awake alert oriented x3. No focal deficits Extremity. No cyanosis. Trace edema of lower extremities Skin: No skin rash Objective Intake and Output I&O: Intake & Output 02/10/22 02/11/22 02/12/22 02/13/22 23:59 23:59 23:59 23:59 Intake Total 400 / 400 1440 / 1440 1885 / 1885 250 / 250 Output Total 1085 / 1085 2900 / 2900 1700 / 1700 650 / 650 Balance -685 / -685 -1460 / -1460 185 / 185 -400 / -400 Weight 97.7 kg 96.8 kg 91 kg 90 kg Meds and Allergies Meds: Active Medications Acetaminophen (Acetaminophen 325 Mg Tablet) 650 mg PO Q6HR PRN PRN Reason: Pain Scale 1 - 3 or fever Stop: 02/10/23 10:39 Last Admin: 02/10/22 21:35 Dose: 650 mg Albuterol/Ipratropium (Ipratropium/Albuterol 0.5-3 Mg 3 Ml Ampul.Neb) 3 ml INHALATION QID.RESP REVA Stop: 02/12/23 19:59 Last Admin: 02/13/22 11:21 Dose: 3 ml Amiodarone HCl (Amiodarone 200 Mg Tablet) 200 mg PO DAILY REVA Stop: 02/11/23 08:59 Last Admin: 02/13/22 10:00 Dose: 200 mg Ascorbic Acid (Ascorbic Acid 500 Mg Tablet) 500 mg PO DAILY REVA Stop: 02/11/23 08:59 Last Admin: 02/13/22 10:00 Dose: 500 mg Aspirin (Aspirin 81 Mg Tablet.Dr) 81 mg PO DAILY REVA Stop: 02/11/23 08:59 Last Admin: 02/13/22 10:00 Dose: 81 mg Atorvastatin Calcium (Atorvastatin 80 Mg Tablet) 80 mg PO QHS COUNTS INCLUDE 234 BEDS AT THE [facility] Stop: 02/10/23 21:59 Last Admin: 02/12/22 21:26 Dose: 80 mg Clopidogrel Bisulfate (Clopidogrel Bisulfate 75 Mg Tablet) 75 mg PO DAILY COUNTS INCLUDE 234 BEDS AT THE [facility] Stop: 02/11/23 08:59 Last Admin: 02/13/22 10:00 Dose: 75 mg Dextrose (Dextrose 50% In Water 25 Gm/50 Ml Syringe) 0 gm IV-PUSH PRN PRN PRN Reason: Hypoglycemia Stop: 02/10/23 10:44 Dicyclomine HCl (Dicyclomine 20 Mg Tablet) 20 mg PO QID COUNTS INCLUDE 234 BEDS AT THE [facility] Stop: 02/10/23 13:59 Last Admin: 02/13/22 10:00 Dose: 20 mg Doxycycline Hyclate (Doxycycline Hyclate 100 Mg Tablet) 100 mg PO BID COUNTS INCLUDE 234 BEDS AT THE [facility] Last Admin: 02/13/22 10:00 Dose: 100 mg Famotidine (Famotidine 20 Mg Tablet) 20 mg PO Q48H COUNTS INCLUDE 234 BEDS AT THE [facility] Stop: 02/14/23 08:59 Furosemide (Furosemide 40 Mg/4 Ml Vial) 40 mg IV-PUSH TID COUNTS INCLUDE 234 BEDS AT THE [facility] Stop: 02/11/23 13:59 Last Admin: 02/12/22 21:26 Dose: 40 mg Glucose (Dextrose 40% Gel 15 Gm Tube) 0 gm PO PRN PRN PRN Reason: Hypoglycemia Stop: 02/10/23 10:44 Guaifenesin (Guaifenesin 600 Mg Tab.Er.12h) 1,200 mg PO BID COUNTS INCLUDE 234 BEDS AT THE [facility] Stop: 02/12/23 20:59 Last Admin: 02/13/22 10:00 Dose: 1,200 mg Heparin Sodium (Porcine) (Heparin *Protocol Bolus* 5,000 Unit/Ml Vial) 3,900 unit 40 unit/kg (3900 unit) IV-PUSH PROTOCOL PRN PRN Reason: PTT 40-53 Stop: 02/10/23 14:02 Last Admin: 02/12/22 13:46 Dose: 3,900 unit Heparin Sodium (Porcine) (Heparin *Protocol Bolus* 5,000 Unit/Ml Vial) 4,000 unit IV-PUSH PROTOCOL PRN PRN Reason: PTT < 40 Stop: 02/10/23 14:02 Nitroglycerin/Dextrose (Nitroglycerin 50 Mg-*D5w*) 50 mg in 250 mls @ 1.5 mls/hr IV .Q24H COUNTS INCLUDE 234 BEDS AT THE [facility]; Protocol Stop: 02/10/23 15:59 Last Titration: 02/12/22 17:30 Dose: 0 mcg/min, 0 mls/hr Sodium Chloride (0.9% Sodium Chloride 500 Ml) 500 mls @ 100 mls/hr IV .Q5H COUNTS INCLUDE 234 BEDS AT THE [facility] Stop: 02/13/22 11:59 Last Admin: 02/13/22 07:44 Dose: 100 mls/hr Insulin Aspart (Insulin Aspart 300 Units/3 Ml Insuln.Pen) 0 units SUBCUT TID.WM.HS COUNTS INCLUDE 234 BEDS AT THE [facility]; Protocol Stop: 02/10/23 11:59 Last Admin: 02/13/22 10:00 Dose: Not Given Levothyroxine Sodium (Levothyroxine 100 Mcg Tablet) 100 mcg PO DAILY@0630 COUNTS INCLUDE 234 BEDS AT THE [facility] Stop: 02/10/23 17:59 Last Admin: 02/13/22 07:43 Dose: 100 mcg Melatonin (Melatonin 5 Mg Tablet) 5 mg PO QHS COUNTS INCLUDE 234 BEDS AT THE [facility] Stop: 02/13/23 21:59 Methylprednisolone Sodium Succinate (Methylprednisolone Sod Succ/Pf 40 Mg/Ml (1ml) Vial) 40 mg IV-PUSH Q8HR REVA Stop: 02/12/23 21:59 Last Admin: 02/13/22 07:43 Dose: 40 mg Metoprolol Succinate (Metoprolol Succinate 100 Mg Tab.Er.24h) 100 mg PO DAILY COUNTS INCLUDE 234 BEDS AT THE [facility] Stop: 02/10/23 17:59 Last Admin: 02/13/22 10:00 Dose: 100 mg Omeprazole (Omeprazole 20 Mg Capsule.Dr) 40 mg PO DAILY COUNTS INCLUDE 234 BEDS AT THE [facility] Stop: 02/11/23 08:59 Last Admin: 02/13/22 10:00 Dose: 40 mg Sodium Chloride (Sodium Chloride 0.9 % 10 Ml Syringe) 0 ml IV-PUSH PRN PRN PRN Reason: Flush Stop: 02/10/23 06:17 Sodium Chloride (Sodium Chloride 0.9 % 10 Ml Syringe) 0 ml IV-PUSH QSHIFT REVA Stop: 02/10/23 13:59 Last Admin: 02/13/22 07:43 Dose: 10 ml Sodium Chloride (Sodium Chloride 0.9 % 10 Ml Syringe) 0 ml IV-PUSH PRN PRN PRN Reason: Flush Stop: 02/11/23 10:36 Last Admin: 02/12/22 09:07 Dose: 10 ml Allergies levofloxacin Allergy (Verified 02/10/22 06:20) Rash Penicillins Allergy (Verified 02/10/22 06:20) Swelling, rash Results Labs CBC & Chem 7: 02/13/22 05:30 02/13/22 05:30 Labs: 02/13/22 05:30 BUN 47 H Creatinine 3.36 H Radiology Impressions Impressions - last 24 hours: Impressions Chest CT 02/12/22 11:20 IMPRESSION: MILDLY ANEURYSMAL ASCENDING AORTA. ATHEROSCLEROTIC DISEASE. BORDERLINE CARDIOMEGALY. OBSTRUCTIVE LUNG DISEASE. PLEURAL-PARENCHYMAL CHANGES, DESCRIBED. Impression dictated by: Heather Valera M.D.02/12/2022 12:16 PM Dictation Location: [place] [address] Any impression(s) listed above is documentation that was entered by the reading physician into a diagnostic report(s) for Apolinar Norman. I have reviewed the report(s) and am incorporating any findings in the treatment plan of this patient where applicable. A&P - Nephrology Assessment/Plan (1) Chronic kidney disease (CKD): Assessment/Problem Details: Patient seems to have progressive CKD in the setting of DM2, HTN and atherosclerotic renovascular disease. Patient has CKD stage IV at baseline. Serum creatinine was 2.5 mg/dL with GFR 24 mL/min in April 2021. UA is benignexcept mild protein. Renal ultrasound shows asymmetric renal sizes with the right kidney measures 15 x 7.5 cm and the left kidney measures 9.4 x 5.6 cm. This is likely related to vascular disease (2) Acute coronary syndrome: Assessment/Problem Details: Patient presented with chest pressure currently with elevated troponin. He is on heparin drip and nitroglycerin drip for acute coronary syndrome. Cardiology is following. The plan to do cardiac cath Friday at 1 PM (3) CHF (congestive heart failure): Assessment/Problem Details: Chest x-ray showed cardiomegaly and pulmonary congestion. He has bilateral lower extremity edema 2+. He has shortness of breath on mild exertion. Echocardiogram in February 11 showed ejection fraction 50 to 60%, moderate aortic and mitral valve stenosis with moderate pulmonary hypertension and mild to moderate tricuspid regurgitation (4) Hypertension: Assessment/Problem Details: Blood pressure is better controlled. Edema has improved. Patient is only on Lasix (5) Diabetes mellitus, type 2: Assessment/Problem Details: Patient has history of diabetes mellitus however currently on diet only. Patient stated that he takes diabetes medications however I do not see anything listed in his home medications. Patient is not on insulin with meals (6) Acute kidney injury: Assessment/Problem Details: Acute kidney injury is likely from cardiorenal syndrome. Urinalysis was negative for hematuria. It showed only mild proteinuria. patient seems diuresing well with Lasix. Patient lost 5 pounds since yesterday Plan * Acute kidney injury is likely from cardiorenal syndrome as the patient presented with acute coronary syndrome with CHF * Patient is diuresing well with Lasix. Serum creatinine is a stable for the last 24-hour . Urine output around 2.3 L. * We will hold diuretics for potential IV contrast exposure * Continue normal saline 100 cc/h * There is no urgent need for hemodialysis. I will continue to evaluate renal function panel along with volume status and electrolytes daily * I explained to the patient and his daughter at bedside that patient at risk for worsening kidney function with IV contrast exposure and he might need dialysis . I explained to them that cardiac cath overweighs the risk of worsening kidney function as he has active ACS with a history of CABG. They verbalized understanding * Serum bicarb is 23. No need for replacement * Hemoglobin stable around 10 g/dL. Evaluation of anemia and hyperparathyroidism will be done after resolution of acute coronary syndrome and CHF. * Check renal function panel in the morning * Cardiology is following for ACS. Cardiac cath planned for tomorrow. Currently on heparin drip * Recommend pulmonary consult to evaluate hypoxia with above CT chest finding Plan of care was discussed with the primary service attending Dr. Nelson Renal team will continue to follow. Call if any question. Documented By: Sophia Woo MD 02/13/22 1136 Signed By: <Electronically signed by Sophia Woo MD> 02/13/22 1141 [facility] Work Phone: 1(474) 211-926108-02-2022 Progress note Author W Morteza [facility] February 12, 2022 4:44pm Note Date/Time February 12, 2022 4:4 4pm [facility] [address] [place] [address] Cardiology Progress Note Signed Patient: Apolinar Norman MR#: [id number] [birth year] : 1940 Acct:[id number] Age/Sex: 82 / M Adm Date: 2 Loc: Room: [address] [place] [address] Type: ADM IN Attending Dr: Mere Nelson MD Copies to: ~ Date of Service: 02/12/2022 Subjective Principal diagnosis: NSTEMI, CHF, PVD Interval history: Patient remains on mask, desaturates down to 89% when the mask is removed. Currently on heparin drip no current angina. Serum creatinine now up to 3.23 with good urine output with intravenous furosemide. At this juncture patient's creatinine continues to climb therefore increasing periprocedural risk for contrast-induced nephropathy and possible need for dialysis if we are to proceed with invasive management. CT scan performed yesterday reveals right posterior upper lobe infiltrate, bilateral pleural effusions, severe aortic arch calcification and chicken ranch coronary artery calcification. Limited echocardiogram now reveals normal left ventricular function! We will continue to evaluate renal function on a daily basis and as long as serum creatinine is rising we will hold off on angiographic assessment as long as he is asymptomatic. Primary issue at this point in time really is diastolic CHF and COPD Exam Physical Exam Vital Signs: Temp Pulse Resp BP Pulse Ox O2 Del Method O2 Flow Rate 98.0 F 70 20 100/61 93 L Venturi Mask 8 02/12/22 15:59 02/12/22 15:59 02/12/22 15:59 02/12/22 15:59 02/12/22 15:59 02/12/22 16:00 02/12/22 13:35 FiO2 40 02/12/22 13:35 Const General: cooperative, comfortable, no acute distress and disheveled Orientation: alert, awake and oriented x3 HEENT Head: normal to inspection Neck Neck: normal visual inspection Chest Chest palpation & inspection: normal inspection of the chest Resp Effort & Inspection: able to speak in complete sentences and abnormal respiratory pattern Auscultation: crackles Cardio Palpation: normal PMI Rate: regular rate Rhythm: regular rhythm Heart Sounds: S1 normal and S2 normal GI Palpation: soft Skin General: no rashes or lesions noted Neuro General: patient alert, patient awake and patient oriented x3 Cognition: normal cognition Speech: speech normal Extrem General: no clubbing, cyanosis or edema Objective Labs CBC & Chem 7: 02/12/22 04:38 02/12/22 04:38 Labs: Laboratory Results - last 24 hr 02/11/22 02/11/22 02/11/22 16:22 20:49 21:08 Corrected WBC Uncorrected WBC Count RBC Hgb Hct MCV MCH MCHC RDW Plt Count MPV Neut % (Auto) Lymph % (Auto) [place] % (Auto) Eos % (Auto) Baso % (Auto) Neut # (Auto) Lymph # (Auto) [place] # (Auto) Eos # (Auto) Baso # (Auto) Nucleated RBC % (auto) APTT 48.8 H PHA Creatinine Clear Sodium Potassium Chloride Carbon Dioxide BUN Creatinine Est GFR ( Amer) Est GFR (Non-Af Amer) Glucose POC Glucose 119 143 POC Glucose Comment Calcium 02/12/22 02/12/22 02/12/22 04:38 04:38 04:38 Corrected WBC 9.9 Uncorrected WBC Count 9.9 RBC 2.99 L Hgb 9.8 L Hct 29.2 L MCV 97.7 MCH 32.8 MCHC 33.6 RDW 13.7 Plt Count 132 L MPV 9.9 Neut % (Auto) 82.6 Lymph % (Auto) 7.0 [place] % (Auto) 9.8 Eos % (Auto) 0.2 Baso % (Auto) 0.4 Neut # (Auto) 8.2 H Lymph # (Auto) 0.7 L [place] # (Auto) 1.0 H Eos # (Auto) 0.0 Baso # (Auto) 0.0 Nucleated RBC % (auto) 0.0 APTT 85.1 H PHA Creatinine Clear 21.64 Sodium 138 Potassium 3.6 Chloride 104 Carbon Dioxide 21.9 L BUN 38 H Creatinine 3.23 H Est GFR ( Amer) 22 Est GFR (Non-Af Amer) 19 Glucose 124 H POC Glucose POC Glucose Comment Calcium 8.7 02/12/22 02/12/22 02/12/22 07:13 11:16 12:45 Corrected WBC Uncorrected WBC Count RBC Hgb Hct MCV MCH MCHC RDW Plt Count MPV Neut % (Auto) Lymph % (Auto) [place] % (Auto) Eos % (Auto) Baso % (Auto) Neut # (Auto) Lymph # (Auto) [place] # (Auto) Eos # (Auto) Baso # (Auto) Nucleated RBC % (auto) APTT 46.7 H PHA Creatinine Clear Sodium Potassium Chloride Carbon Dioxide BUN Creatinine Est GFR ( Amer) Est GFR (Non-Af Amer) Glucose POC Glucose 139 127 POC Glucose Comment Calcium 02/12/22 16:15 Corrected WBC Uncorrected WBC Count RBC Hgb Hct MCV MCH MCHC RDW Plt Count MPV Neut % (Auto) Lymph % (Auto) [place] % (Auto) Eos % (Auto) Baso % (Auto) Neut # (Auto) Lymph # (Auto) [place] # (Auto) Eos # (Auto) Baso # (Auto) Nucleated RBC % (auto) APTT PHA Creatinine Clear Sodium Potassium Chloride Carbon Dioxide BUN Creatinine Est GFR ( Amer) Est GFR (Non-Af Amer) Glucose POC Glucose 180 POC Glucose Comment Glu2: cleaned meter Calcium A&P - Cardiology (1) Coronary artery disease: Assessment/Problem Details: Longstanding history of coronary disease with previous surgical intervention andother coronary interventions. Code(s): I25.10 - Atherosclerotic heart disease of [place] coronary artery without angina pectoris Status: Acute (2) Chest pain: Assessment/Problem Details: Chest pain may be angina but on the other hand it could be gastrointestinal. Curiously had no symptoms yesterday with exertion but last night he had symptomsat rest recumbent in bed. Usually if there is rest pain there is ST segment change and/or troponin rise consistent with acute coronary syndrome (plaque rupture). Code(s): R07.9 - Chest pain, unspecified Status: Acute (3) CHF (congestive heart failure): Code(s): I50.9 - Heart failure, unspecified Status: Acute Plan: Agree with nephrology, diuresis (4) Acute coronary syndrome: Assessment/Problem Details: Hold off on PCI until serum creatinine is plateaued or declining Code(s): I24.9 - Acute ischemic heart disease, unspecified Status: Acute Plan Conservative therapy with heparin and his home regimen. Documented By: Emilia Pro DO 02/12/228 Signed By: <Electronically signed by Emilia Pro DO> 02/12/22 1647 [facility] Work Phone: 1(259) 316-235208-02-2022 Progress note Author Mere Nelson [facility] February 12, 2022 1:05pm Note Date/Time February 12, 2022 1:0 5pm [facility] [address] [place] [address] Hospitalist Progress Note Signed Patient: Apolinar Norman MR#: [id number] [birth year] : 1940 Acct:[id number] Age/Sex: 82 / M Adm Date: 2 Loc: Room: [address] [place] [address] Type: ADM IN Attending Dr: Mere Nelson MD Copies to: ~ Date of Service: 02/12/2022 Subjective Subjective Narrative: Patient seen at bedside, claims to feel better than yesterday. Currently on Ventimask. Luna catheter has been placed with more than 600 mL ekaterina-colored urine output so far. His creatinine has been increased. Hemodialysis has been discussed with patient and his daughter at bedside. Given his persistent hypoxemia will obtain CT chest to further evaluate. He denies having cough. Exam Physical Exam Vital Signs: Temp Pulse Resp BP Pulse Ox O2 Del Method O2 Flow Rate 97.9 F 72 20 136/70 94 L Venturi Mask 12 02/12/22 07:35 02/12/22 10:07 02/12/22 09:00 02/12/22 09:00 02/12/22 09:00 02/12/22 09:00 02/12/22 09:00 FiO2 50 02/12/22 09:00 Narrative: Gen: pleasant, patient in no acute distress Neuro: awake and alert CV: RRR no murmurs, gallops, or rubs. B/l LE pale w/ edema Pulm: CTA b/l no wheezes, rhonchi, or crackles. Objective Lab Results CBC & Chem 7: 02/12/22 04:38 02/12/22 04:38 Meds Allergies and Active Meds Allergies levofloxacin Allergy (Verified 02/10/22 06:20) Rash Penicillins Allergy (Verified 02/10/22 06:20) Swelling, rash Active Meds: Active Medications Generic Name Dose Route Start Last Admin Trade Name Freq PRN Reason Stop Dose Admin Acetaminophen 650 mg 02/10/22 10:40 02/10/22 21:35 Acetaminophen 325 Mg Tablet PO 02/10/23 10:39 650 mg Q6HR PRN Administration Pain Scale 1 - 3 or fever Amiodarone HCl 200 mg 02/11/22 09:00 02/12/22 09:04 Amiodarone 200 Mg Tablet PO 02/11/23 08:59 200 mg DAILY REVA Administration Ascorbic Acid 500 mg 02/11/22 09:00 02/12/22 09:04 Ascorbic Acid 500 Mg Tablet PO 02/11/23 08:59 500 mg DAILY REVA Administration Aspirin 81 mg 02/11/22 09:00 02/12/22 09:04 Aspirin 81 Mg Tablet. PO 02/11/23 08:59 81 mg DAILY REVA Administration Atorvastatin Calcium 80 mg 02/10/22 22:00 02/11/22 21:26 Atorvastatin 80 Mg Tablet PO 02/10/23 21:59 80 mg QHS REVA Administration Clopidogrel Bisulfate 75 mg 02/11/22 09:00 02/12/22 09:04 Clopidogrel Bisulfate 75 Mg Tablet PO 02/11/23 08:59 75 mg DAILY REVA Administration Dextrose 0 gm 02/10/22 10:45 Dextrose 50% In Water 25 Gm/50 Ml Syringe IV-PUSH 02/10/23 10:44 PRN PRN Hypoglycemia Dicyclomine HCl 20 mg 02/10/22 14:00 02/12/22 09:04 Dicyclomine 20 Mg Tablet PO 02/10/23 13:59 20 mg QID REVA Administration Famotidine 20 mg 02/10/22 15:30 02/12/22 09:04 Famotidine 20 Mg Tablet PO 02/10/23 15:29 Not Given BID REVA Furosemide 40 mg 02/11/22 14:00 02/12/22 09:05 Furosemide 40 Mg/4 Ml Vial IV-PUSH 02/11/23 13:59 40 mg TID REVA Administration Glucose 0 gm 02/10/22 10:45 Dextrose 40% Gel 15 Gm Tube PO 02/10/23 10:44 PRN PRN Hypoglycemia Heparin Sodium (Porcine) 3,900 unit 02/10/22 14:03 02/12/22 00:11 Heparin *Protocol Bolus* 5,000 Unit/Ml Vial 40 unit/kg (3900 unit) 02/10/23 14:02 3,900 unit IV-PUSH Administration PROTOCOL PRN PTT 40-53 Heparin Sodium (Porcine) 4,000 unit 02/10/22 14:03 Heparin *Protocol Bolus* 5,000 Unit/Ml Vial IV-PUSH 02/10/23 14:02 PROTOCOL PRN PTT < 40 Heparin Sodium/Sodium Chloride 25,000 unit in 250 mls @ 10 mls/hr 02/10/22 14:15 02/12/22 06:59 Heparin IV 02/13/22 11:15 1,200 units/hr .Q24H REVA 12 mls/hr Titration Protocol 1,000 UNITS/HR Nitroglycerin/Dextrose 50 mg in 250 mls @ 1.5 mls/hr 02/10/22 16:00 02/12/22 10:07 Nitroglycerin 50 Mg-*D5w* IV 02/10/23 15:59 5 mcg/min .Q24H REVA 1.5 mls/hr Administration Protocol 5 MCG/MIN Insulin Aspart 0 units 02/10/22 12:00 02/12/22 07:42 Insulin Aspart 300 Units/3 Ml Insuln.Pen SUBCUT 02/10/23 11:59 Not Given TID.WM.HS REVA Protocol Levothyroxine Sodium 100 mcg 02/10/22 18:00 02/12/22 05:53 Levothyroxine 100 Mcg Tablet PO 02/10/23 17:59 100 mcg DAILY@0630 REVA Administration Metoprolol Succinate 100 mg 02/10/22 18:00 02/12/22 09:04 Metoprolol Succinate 100 Mg Tab.Er.24h PO 02/10/23 17:59 100 mg DAILY REVA Administration Miscellaneous Information 1 each 02/11/22 10:37 Consult To Pharmacy MISCELLANE 02/11/23 10:36 .PHACONSULT PRN [place].Pharmacy Consult Protocol Omeprazole 40 mg 02/11/22 09:00 02/12/22 09:04 Omeprazole 20 Mg Capsule.Dr GROSS 02/11/23 08:59 40 mg DAILY REVA Administration Potassium Chloride 40 meq 02/13/22 07:00 Potassium Chloride Er 20 Meq Tab.Er.Prt PO STAT PRN Hypokalemia Potassium Chloride 20 meq 02/12/22 10:30 02/12/22 10:10 Potassium Chloride Er 20 Meq Tab.Er.Prt PO 02/12/22 10:31 20 meq ONCE ONE Administration Sodium Bicarbonate 650 mg 02/10/22 15:30 02/12/22 09:04 Sodium Bicarbonate 650 Mg Tablet PO 02/10/23 15:29 650 mg TID REVA Administration Sodium Chloride 0 ml 02/10/22 06:18 Sodium Chloride 0.9 % 10 Ml Syringe IV-PUSH 02/10/23 06:17 PRN PRN Flush Sodium Chloride 0 ml 02/10/22 14:00 02/12/22 05:53 Sodium Chloride 0.9 % 10 Ml Syringe IV-PUSH 02/10/23 13:59 10 ml QSHIFT REVA Administration Sodium Chloride 0 ml 02/11/22 10:37 02/12/22 09:07 Sodium Chloride 0.9 % 10 Ml Syringe IV-PUSH 02/11/23 10:36 10 ml PRN PRN Administration Flush A&P - Hospitalist Assessment/Plan (1) Acute respiratory failure with hypoxia: (2) Acute on chronic diastolic heart failure: (3) Acute kidney injury: (4) Peripheral vascular disease: (5) Hypertension: (6) GERD (gastroesophageal reflux disease): (7) Hyperlipidemia: (8) Coronary artery disease: (9) Acute coronary syndrome: (10) Chest pain: Plan Assessment: Acute Problems: 1.) Acute Coronary Syndrome * History of 3 vessel coronary artery bypass grafting; pacemaker * Heart catheterization April 2021 w/ no intervention 2.) Chest pain * Sudden chest pain, no STEMI EKG changes * Serial EKG shows 1st degree AV block, incomplete left bundle branch block, occasional premature ventricular complexes per report * Echocardiogram 55-60% ejection fraction w/ severe left atrial dilation, mild left ventricular concentric hypertrophy, right ventricular pressure consistent with pulmonary hypertension, mild to moderate tricuspid regurgitation, and borderline right atrial dilation per report. Aortic and mitral valve moderately sclerotic with mild mitral annular calcification per report. 3.) Acute on chronic diastolic heart failure * Chest X-ray with mild cardiomegaly and vascular congestion; possible pulmonary edema. 4.) Acute kidney injury on chronic kidney disease * Stage IV at baseline, progressing recently. Creatinine 3.23 04:48 02/12/2022. * Renal US shows asymmetric renal sizes w/ right kidney measuring 15 x 7.5 cm and left kidney measures 9.4 x 5.6 cm. Likely vascular disease. * Spoke with straight edger, patient is likely progressing towards dialysis 5.) Acute hypoxic respiratory failure. Chronic Problems: * Coronary artery disease * DM type II (Diabetes mellitus type 2) * GERD (gastroesophageal reflux disease) * Hyperlipidemia * Hypertension * Peripheral vascular disease w/ stenting of LLE Plan: Creatinine has been trending and possibility of hemodialysis has been discussed with patient and his daughter. Currently being managed by nephrology. Ulna catheter has been placed to measure output accurately. His weight has decreasedsince admission but continues to require supplemental oxygen. CT chest without contrast obtained which showed interstitial thickening and groundglass density at the posterior upper and both lower lobes. On admission COVID, RSV and flu test was negative. Patient is not exhibiting any signs of infection. He denies having cough and remains afebrile without leukocytosis. Suspecting fluid overload. Currently on nitroglycerin and heparin drip. Limited echo obtained yesterday showing EF of 55 to 60% with mild concentric LVH. Moderate pulmonary hypertension and severely dilated left atrium. No prior echocardiogram to compare. Cardiology planning for PCI tomorrow afternoon. Documented By: Mere Nelson MD 02/12/22 1030 Signed By: <Electronically signed by Mere Nelson MD> 02/12/22 1725 [facility] Work Phone: 1([phone] 141-556508-02-2022 Progress note Author Sophia Woo [facility] February 12, 2022 12:19pm Note Date/Time February 12, 2022 12: 19pm [facility] [address] [place] [address] Nephrology Progress Note Signed Patient: Apolinar Norman MR#: [id number] [birth year] : 1940 Acct:[id number] Age/Sex: 82 / M Adm Date: 2 Loc: Room: [address] [place] [address] Type: ADM IN Attending Dr: Mere Nelson MD Copies to: ~ Date of Service: 02/12/2022 Subjective Subjective Narrative: Mr. Norman is an 82-year-old white gentleman with history of CAD s/p CABG, DM2, PAD and progressive CKD over the last few years. Patient presented to the ER on02/10 with severe crushing chest pain that wake him up from sleep. He had nitroglycerin with no relief so he decided to come to the ER. He had additionalnitroglycerin and aspirin on route with improvement of chest pain. EKG and ED showed ST segment depression. Dr. Pro was contacted from the ER and the patient was started on heparin drip. On arrival, his creatinine was 2.93 mg/dL that higher from creatinine 2.7 on December 2021 and 2.57 on April 2021. The family and the patient did note that he has CKD that seems to be progressing and possibly will need dialysis in the future however never been evaluated by nephrology but he supposed to see 1 soon.. Recently lisinopril was stopped withhope of improvement of renal function. Nephrology was consulted during hospitalstay considering that the patient may need cardiac cath and contrast exposure during hospital stay Patient has DM2 for many years however currently is diet controlled. He has severe peripheral arterial disease with intermittent claudications. He was evaluated by vascular surgery and according to the family he had Co2 angiogram rather than diet because of risk of ALICIA. Is currently on Pletal with no plan ofsurgery at this point. His lab today was reviewed. Patient has mild anemia with hemoglobin of 10.1. INR 1.0. He has mild acidosis with CO2 18.4. Creatinine 2.93 and potassium 4.2. BNP was mildly elevated 494 with albumin 3.5. Initial troponin was only 17 however the second troponin is up to 754. Chest x-ray showed cardiomegaly with mild pulmonary congestion. He has been on chlorthalidone. Patient was tested negative for COVID-19 on admission. He was evaluated by cardiology, Dr. Murdock and is currently on conservative treatment pending the results of cardiac enzymes and serial EKGs. Patient stated that he has no more chest pain. He has shortness of breath on mild exertion. He has generalized fatigability with decreased endurance. No nausea or vomiting. No abdominal pain. No hematemesis or melena. He has no urinary symptoms. No history of kidney stones. Interval history: Patient was seen and examined in his room. Remains on high flow V mask at 12 L/min. Denied ongoing chest pain. He remains on heparin drip and nitroglycerin drip Denied nausea vomiting. Denies urinary obstructive symptoms. Denied diarrhea or abdominal pain. There has been no accurate measurement of urine output. As per the charting patient lost 5 pounds since yesterday Exam Physical Exam Vital Signs: Temp Pulse Resp BP Pulse Ox O2 Del Method O2 Flow Rate 98.1 F 72 20 138/63 94 L Venturi Mask 12 02/12/22 11:05 02/12/22 11:05 02/12/22 11:05 02/12/22 11:05 02/12/22 11:05 02/12/22 11:05 02/12/22 11:05 FiO2 50 02/12/22 11:05 Narrative: General: No acute distress. On V mask at 12 L/min Head :atraumatic normocephalic Eyes: PERRLA. Pale conjunctiva Neck: no JVD no bruit. Heart: S1-S2. RRR Respiratory: There is no crackles by auscultation. There is bilateral rhonchi. No wheezing Abdomen: Soft, positive bowel sounds,no tenderness. Neurology: Awake alert oriented x3. No focal deficits Extremity. No cyanosis. +1 edema of lower extremities Skin: No skin rash Objective Intake and Output I&O: Intake & Output 02/09/22 02/10/22 02/11/22 02/12/22 23:59 23:59 23:59 23:59 Intake Total 400 / 400 1440 / 1440 695 / 695 Output Total 1085 / 1085 2900 / 2900 Balance -685 / -685 -1460 / -1460 695 / 695 Weight 97.7 kg 96.8 kg 91 kg Meds and Allergies Meds: Active Medications Acetaminophen (Acetaminophen 325 Mg Tablet) 650 mg PO Q6HR PRN PRN Reason: Pain Scale 1 - 3 or fever Stop: 02/10/23 10:39 Last Admin: 02/10/22 21:35 Dose: 650 mg Amiodarone HCl (Amiodarone 200 Mg Tablet) 200 mg PO DAILY COUNTS INCLUDE 234 BEDS AT THE [facility] Stop: 02/11/23 08:59 Last Admin: 02/12/22 09:04 Dose: 200 mg Ascorbic Acid (Ascorbic Acid 500 Mg Tablet) 500 mg PO DAILY COUNTS INCLUDE 234 BEDS AT THE [facility] Stop: 02/11/23 08:59 Last Admin: 02/12/22 09:04 Dose: 500 mg Aspirin (Aspirin 81 Mg Tablet.Dr) 81 mg PO DAILY COUNTS INCLUDE 234 BEDS AT THE [facility] Stop: 02/11/23 08:59 Last Admin: 02/12/22 09:04 Dose: 81 mg Atorvastatin Calcium (Atorvastatin 80 Mg Tablet) 80 mg PO QHS COUNTS INCLUDE 234 BEDS AT THE [facility] Stop: 02/10/23 21:59 Last Admin: 02/11/22 21:26 Dose: 80 mg Clopidogrel Bisulfate (Clopidogrel Bisulfate 75 Mg Tablet) 75 mg PO DAILY COUNTS INCLUDE 234 BEDS AT THE [facility] Stop: 02/11/23 08:59 Last Admin: 02/12/22 09:04 Dose: 75 mg Dextrose (Dextrose 50% In Water 25 Gm/50 Ml Syringe) 0 gm IV-PUSH PRN PRN PRN Reason: Hypoglycemia Stop: 02/10/23 10:44 Dicyclomine HCl (Dicyclomine 20 Mg Tablet) 20 mg PO QID COUNTS INCLUDE 234 BEDS AT THE [facility] Stop: 02/10/23 13:59 Last Admin: 02/12/22 09:04 Dose: 20 mg Famotidine (Famotidine 20 Mg Tablet) 20 mg PO BID COUNTS INCLUDE 234 BEDS AT THE [facility] Stop: 02/10/23 15:29 Last Admin: 02/12/22 09:04 Dose: Not Given Furosemide (Furosemide 40 Mg/4 Ml Vial) 40 mg IV-PUSH TID COUNTS INCLUDE 234 BEDS AT THE [facility] Stop: 02/11/23 13:59 Last Admin: 02/12/22 09:05 Dose: 40 mg Glucose (Dextrose 40% Gel 15 Gm Tube) 0 gm PO PRN PRN PRN Reason: Hypoglycemia Stop: 02/10/23 10:44 Heparin Sodium (Porcine) (Heparin *Protocol Bolus* 5,000 Unit/Ml Vial) 3,900 unit 40 unit/kg (3900 unit) IV-PUSH PROTOCOL PRN PRN Reason: PTT 40-53 Stop: 02/10/23 14:02 Last Admin: 02/12/22 00:11 Dose: 3,900 unit Heparin Sodium (Porcine) (Heparin *Protocol Bolus* 5,000 Unit/Ml Vial) 4,000 unit IV-PUSH PROTOCOL PRN PRN Reason: PTT < 40 Stop: 02/10/23 14:02 Heparin Sodium/Sodium Chloride (Heparin) 25,000 unit in 250 mls @ 10 mls/hr IV .Q24H COUNTS INCLUDE 234 BEDS AT THE [facility]; Protocol Stop: 02/13/22 11:15 Last Admin: 02/12/22 10:55 Dose: 1,200 units/hr, 12 mls/hr Nitroglycerin/Dextrose (Nitroglycerin 50 Mg-*D5w*) 50 mg in 250 mls @ 1.5 mls/hr IV .Q24H COUNTS INCLUDE 234 BEDS AT THE [facility]; Protocol Stop: 02/10/23 15:59 Last Admin: 02/12/22 10:07 Dose: 5 mcg/min, 1.5 mls/hr Insulin Aspart (Insulin Aspart 300 Units/3 Ml Insuln.Pen) 0 units SUBCUT TID.WM.HS COUNTS INCLUDE 234 BEDS AT THE [facility]; Protocol Stop: 02/10/23 11:59 Last Admin: 02/12/22 11:40 Dose: Not Given Levothyroxine Sodium (Levothyroxine 100 Mcg Tablet) 100 mcg PO DAILY@0630 COUNTS INCLUDE 234 BEDS AT THE [facility] Stop: 02/10/23 17:59 Last Admin: 02/12/22 05:53 Dose: 100 mcg Metoprolol Succinate (Metoprolol Succinate 100 Mg Tab.Er.24h) 100 mg PO DAILY COUNTS INCLUDE 234 BEDS AT THE [facility] Stop: 02/10/23 17:59 Last Admin: 02/12/22 09:04 Dose: 100 mg Miscellaneous Information (Consult To Pharmacy) 1 each MISCELLANE .PHACONSULT PRN; Protocol PRN Reason: PAYTON.Pharmacy Consult Stop: 02/11/23 10:36 Omeprazole (Omeprazole 20 Mg Capsule.Dr) 40 mg PO DAILY COUNTS INCLUDE 234 BEDS AT THE [facility] Stop: 02/11/23 08:59 Last Admin: 02/12/22 09:04 Dose: 40 mg Potassium Chloride (Potassium Chloride Er 20 Meq Tab.Er.Prt) 40 meq PO STAT PRN PRN Reason: Hypokalemia Sodium Bicarbonate (Sodium Bicarbonate 650 Mg Tablet) 650 mg PO TID COUNTS INCLUDE 234 BEDS AT THE [facility] Stop: 02/10/23 15:29 Last Admin: 02/12/22 09:04 Dose: 650 mg Sodium Chloride (Sodium Chloride 0.9 % 10 Ml Syringe) 0 ml IV-PUSH PRN PRN PRN Reason: Flush Stop: 02/10/23 06:17 Sodium Chloride (Sodium Chloride 0.9 % 10 Ml Syringe) 0 ml IV-PUSH QSHIFT COUNTS INCLUDE 234 BEDS AT THE [facility] Stop: 02/10/23 13:59 Last Admin: 02/12/22 05:53 Dose: 10 ml Sodium Chloride (Sodium Chloride 0.9 % 10 Ml Syringe) 0 ml IV-PUSH PRN PRN PRN Reason: Flush Stop: 02/11/23 10:36 Last Admin: 02/12/22 09:07 Dose: 10 ml Allergies levofloxacin Allergy (Verified 02/10/22 06:20) Rash Penicillins Allergy (Verified 02/10/22 06:20) Swelling, rash Results Labs CBC & Chem 7: 02/12/22 04:38 02/12/22 04:38 Labs: 02/12/22 04:38 BUN 38 H Creatinine 3.23 H Radiology Impressions Impressions - last 24 hours: Any impression(s) listed above is documentation that was entered by the reading physician into a diagnostic report(s) for Apolinar Norman. I have reviewed the report(s) and am incorporating any findings in the treatment plan of this patient where applicable. A&P - Nephrology Assessment/Plan (1) Chronic kidney disease (CKD): Assessment/Problem Details: Patient seems to have progressive CKD in the setting of DM2, HTN and atherosclerotic renovascular disease. Patient has CKD stage IV at baseline. Serum creatinine was 2.5 mg/dL with GFR 24 mL/min in April 2021. UA is benignexcept mild protein. Renal ultrasound shows asymmetric renal sizes with the right kidney measures 15 x 7.5 cm and the left kidney measures 9.4 x 5.6 cm. This is likely related to vascular disease (2) Acute coronary syndrome: Assessment/Problem Details: Patient presented with chest pressure currently with elevated troponin. He is on heparin drip at nitroglycerin drip for acute coronary syndrome. Cardiology is following. The plan to do cardiac cath Friday at 1 PM (3) CHF (congestive heart failure): Assessment/Problem Details: Chest x-ray showed cardiomegaly and pulmonary congestion. He has bilateral lower extremity edema 2+. He has shortness of breath on mild exertion. Echocardiogram in February 11 showed ejection fraction 50 to 60%, moderate aortic and mitral valve stenosis with moderate pulmonary hypertension and mild to moderate tricuspid regurgitation (4) Hypertension: Assessment/Problem Details: Blood pressure is better controlled. Edema has improved. Patient is only on Lasix (5) Diabetes mellitus, type 2: Assessment/Problem Details: Patient has history of diabetes mellitus however currently on diet only. Patient stated that he takes diabetes medications however I do not see anything listed in his home medications. Patient is not on insulin with meals (6) Acute kidney injury: Assessment/Problem Details: Acute kidney injury is likely from cardiorenal syndrome. Urinalysis was negative for hematuria. It showed only mild proteinuria. patient seems diuresing well with Lasix. Patient lost 5 pounds since yesterday Plan * Acute kidney injury is likely from cardiorenal syndrome as the patient presented with acute coronary syndrome with CHF * Patient is diuresing well with Lasix. Serum creatinine increased to 3.2 mg deciliter from 2.99 mg deciliter yesterday. * I will continue same dose of diuretics as the patient still requiring high flow oxygen * There is no urgent need for hemodialysis. I will continue to evaluate renal function panel along with volume status and electrolytes daily * I explained to the patient and his daughter at bedside that patient at risk for worsening kidney function with IV contrast exposure and he might need dialysis . I explained to them that cardiac cath overweighs the risk of worsening kidney function as he has active ACS with a history of CABG. They verbalized understanding * Will plan to stop diuretics Friday morning and start normal saline at 75 cc/h at 8 AM * Patient has mild acidosis in the setting of stage IV CKD, I will stop sodium bicarb tablet to reduce sodium load * Hemoglobin stable around 10 g/dL. Evaluation of anemia and hyperparathyroidism will be done after resolution of acute coronary syndrome and CHF. * Check renal function panel in the morning * Ordered to place Luna catheter for accurate urine output measurement * Cardiology is following for ACS. Cardiac cath planned for tomorrow. Currently on heparin and nitroglycerin drip Plan of care was discussed with the primary service attending Dr. Mcgee Renal team will continue to follow. Call if any question. Documented By: Sophia Woo MD 02/12/221208 Signed By: <Electronically signed by Sophia Woo MD> 02/12/22 2520 [facility] Work Phone: 1(685) 281-379208-01-2022 Progress note Author Mere Nelson [facility] February 11, 2022 6:15pm Note Date/Time February 11, 2022 6:1 5pm [facility] [address] [place] [address] Hospitalist Progress Note Signed Patient: Apolinar Norman MR#: [id number] [birth year] : 1940 Acct:[id number] Age/Sex: 82 / M Adm Date: 2 Loc: 4 Room: [address] [place] [address] Type: ADM IN Attending Dr: Mere Nelson MD Copies to: ~ Date of Service: 02/11/2022 Subjective Subjective Narrative: History of Present Illness: Patient seen at bedside, claims to feel better than yesterday. Complains of 6/10chest pain at rest last night w/out radiation that has subsided as of this morning. This was accompanied with night dyspnea and SOB. Also complains of claudication in his LLE w/ exertion, he worries that this is due to a narrowing of his LLE stent. Patient denies vomiting, nausea, or constipation. Denies chestpalpations. Exam Physical Exam Vital Signs: Temp Pulse Resp BP Pulse Ox O2 Del Method O2 Flow Rate 98.9 F 71 22 135/62 95 Nonrebreather 10 02/11/22 07:57 02/11/22 10:55 02/11/22 10:55 02/11/22 10:45 02/11/22 10:55 02/11/22 10:55 02/11/22 10:55 FiO2 55 02/11/22 08:30 Narrative: Gen: Pleasant, patient in no acute distress. Neuro: awake and alert CV: RRR no murmurs, gallops, or rubs. No LE edema b/l. LLE slightly pale. CTA: CTA b/l no wheezes, crackles, or rhonchi. Objective Lab Results CBC & Chem 7: 02/11/22 06:31 02/11/22 06:31 Microbiology Results Microbiology 02/10/22 06:25 Nasopharyngeal SARS-CoV-2, Influenza & RSV (PCR) - Final Meds Allergies and Active Meds Allergies levofloxacin Allergy (Verified 02/10/22 06:20) Rash Penicillins Allergy (Verified 02/10/22 06:20) Swelling, rash Active Meds: Active Medications Generic Name Dose Route Start Last Admin Trade Name Freq PRN Reason Stop Dose Admin Acetaminophen 650 mg 02/10/22 10:40 02/10/22 21:35 Acetaminophen 325 Mg Tablet PO 02/10/23 10:39 650 mg Q6HR PRN Administration Pain Scale 1 - 3 or fever Amiodarone HCl 200 mg 02/11/22 09:00 02/11/22 08:20 Amiodarone 200 Mg Tablet PO 02/11/23 08:59 200 mg DAILY REVA Administration Ascorbic Acid 500 mg 02/11/22 09:00 02/11/22 08:20 Ascorbic Acid 500 Mg Tablet PO 02/11/23 08:59 500 mg DAILY REVA Administration Aspirin 81 mg 02/11/22 09:00 02/11/22 08:20 Aspirin 81 Mg Tablet. PO 02/11/23 08:59 81 mg DAILY REVA Administration Atorvastatin Calcium 80 mg 02/10/22 22:00 02/10/22 21:34 Atorvastatin 80 Mg Tablet PO 02/10/23 21:59 80 mg QHS REVA Administration Clopidogrel Bisulfate 75 mg 02/11/22 09:00 02/11/22 08:20 Clopidogrel Bisulfate 75 Mg Tablet PO 02/11/23 08:59 75 mg DAILY REVA Administration Dextrose 0 gm 02/10/22 10:45 Dextrose 50% In Water 25 Gm/50 Ml Syringe IV-PUSH 02/10/23 10:44 PRN PRN Hypoglycemia Dicyclomine HCl 20 mg 02/10/22 14:00 02/11/22 09:45 Dicyclomine 20 Mg Tablet PO 02/10/23 13:59 20 mg QID REVA Administration Famotidine 20 mg 02/10/22 15:30 02/11/22 08:20 Famotidine 20 Mg Tablet PO 02/10/23 15:29 20 mg BID REVA Administration Glucose 0 gm 02/10/22 10:45 Dextrose 40% Gel 15 Gm Tube PO 02/10/23 10:44 PRN PRN Hypoglycemia Heparin Sodium (Porcine) 3,900 unit 02/10/22 14:03 02/11/22 08:21 Heparin *Protocol Bolus* 5,000 Unit/Ml Vial 40 unit/kg (3900 unit) 02/10/23 14:02 3,900 unit IV-PUSH Administration PROTOCOL PRN PTT 40-53 Heparin Sodium (Porcine) 4,000 unit 02/10/22 14:03 Heparin *Protocol Bolus* 5,000 Unit/Ml Vial IV-PUSH 02/10/23 14:02 PROTOCOL PRN PTT < 40 Heparin Sodium/Sodium Chloride 25,000 unit in 250 mls @ 10 mls/hr 02/10/22 14:15 02/11/22 08:21 Heparin IV 02/13/22 11:15 1,400 units/hr .Q24H REVA 14 mls/hr Titration Protocol 1,000 UNITS/HR Nitroglycerin/Dextrose 50 mg in 250 mls @ 1.5 mls/hr 02/10/22 16:00 02/11/22 01:00 Nitroglycerin 50 Mg-*D5w* IV 02/10/23 15:59 5 mcg/min .Q24H REVA 1.5 mls/hr Titration Protocol 5 MCG/MIN Insulin Aspart 0 units 02/10/22 12:00 02/11/22 07:37 Insulin Aspart 300 Units/3 Ml Insuln.Pen SUBCUT 02/10/23 11:59 Not Given TID.WM.HS REVA Protocol Levothyroxine Sodium 100 mcg 02/10/22 18:00 02/11/22 06:29 Levothyroxine 100 Mcg Tablet PO 02/10/23 17:59 Not Given DAILY@0630 REVA Metoprolol Succinate 100 mg 02/10/22 18:00 02/11/22 08:20 Metoprolol Succinate 100 Mg Tab.Er.24h PO 02/10/23 17:59 100 mg DAILY REVA Administration Miscellaneous Information 1 each 02/11/22 10:37 Consult To Pharmacy MISCELLANE 02/11/23 10:36 .PHACONSULT PRN ZMorena.Pharmacy Consult Protocol Omeprazole 40 mg 02/11/22 09:00 02/11/22 08:20 Omeprazole 20 Mg Capsule.Dr PO 02/11/23 08:59 40 mg DAILY REVA Administration Potassium Chloride 40 meq 02/13/22 07:00 Potassium Chloride Er 20 Meq Tab.Er.Prt PO STAT PRN Hypokalemia Sodium Bicarbonate 650 mg 02/10/22 15:30 02/11/22 08:20 Sodium Bicarbonate 650 Mg Tablet PO 02/10/23 15:29 650 mg TID REVA Administration Sodium Chloride 0 ml 02/10/22 06:18 Sodium Chloride 0.9 % 10 Ml Syringe IV-PUSH 02/10/23 06:17 PRN PRN Flush Sodium Chloride 0 ml 02/10/22 14:00 02/11/22 06:29 Sodium Chloride 0.9 % 10 Ml Syringe IV-PUSH 02/10/23 13:59 10 ml QSHIFT REVA Administration Sodium Chloride 0 ml 02/11/22 10:37 02/11/22 10:48 Sodium Chloride 0.9 % 10 Ml Syringe IV-PUSH 02/11/23 10:36 10 ml PRN PRN Administration Flush A&P - Hospitalist Assessment/Plan (1) Acute coronary syndrome: (2) Chronic kidney disease (CKD): (3) Chest pain: (4) Diabetes mellitus, type 2: (5) Coronary artery disease: (6) Hypertension: (7) Hyperlipidemia: (8) Peripheral vascular disease: (9) Acute on chronic diastolic heart failure: (10) Acute respiratory failure with hypoxia: Plan Assessment/Plan: Acute Problems: 1.) Acute Coronary Syndrome * History of 3 vessel coronary artery bypass grafting; pacemaker * Heart catheterization April 2021 w/ no intervention 2.) Chest pain * Sudden chest pain, no STEMI EKG changes 3.) Acute on chronic diastolic heart failure * Chest X-ray with mild cardiomegaly and vascular congestion; possible pulmonary edema. 4.) Acute kidney injury on chronic kidney disease * Stage IV at baseline, progressing recently. Creatinine 2.99 03/13/22. * Renal US shows asymmetric renal sizes w/ right kidney measuring 15 x 7.5 cm and left kidney measures 9.4 x 5.6 cm. Likely vascular disease. Chronic Problems: * Coronary artery disease * DM type II (Diabetes mellitus type 2) * GERD (gastroesophageal reflux disease) * Hyperlipidemia * Hypertension * Peripheral vascular disease w/ stenting of LLE Plan: 1-3.) Patient is admitted w/ inpatient status. Heparin drip along ACS protocol. Cardiology consulted; PCI Friday if creatinine levels are stable or decline, but no heart catheterization. Consult to nephrology given rising creatinine. Continue home medications, but the list needs to be updated.? 4.) Hold lisinopril.? Avoid any nephrotoxic medications. Diabetes mellitus type 2 control with sliding scale insulin Documented By: Mere Nelson MD 02/11/22 1112 Signed By: <Electronically signed by Mere Nelson MD> 02/11/22 8[address] [facility] Work Phone: 1([phone]) 182-673008-01-2022 Progress note Author Sophia Woo [facility] February 11, 2022 1:07pm Note Date/Time February 11, 2022 1:0 7pm [facility] [address] [place] [address] Nephrology Progress Note Signed Patient: Apolinar Norman MR#: [id number] [birth year] : 1940 Acct:[id number] Age/Sex: 82 / M Adm Date: 2 Loc: Room: 4C9484-1 Type: ADM IN Attending Dr: Mere Nelson MD Copies to: ~ Date of Service: 02/11/2022 Subjective Subjective Narrative: Mr. Norman is an 82-year-old white gentleman with history of CAD s/p CABG, DM2, PAD and progressive CKD over the last few years. Patient presented to the ER on02/10 with severe crushing chest pain that wake him up from sleep. He had nitroglycerin with no relief so he decided to come to the ER. He had additionalnitroglycerin and aspirin on route with improvement of chest pain. EKG and ED showed ST segment depression. Dr. Pro was contacted from the ER and the patient was started on heparin drip. On arrival, his creatinine was 2.93 mg/dL that higher from creatinine 2.7 on December 2021 and 2.57 on April 2021. The family and the patient did note that he has CKD that seems to be progressing and possibly will need dialysis in the future however never been evaluated by nephrology but he supposed to see 1 soon.. Recently lisinopril was stopped withhope of improvement of renal function. Nephrology was consulted during hospitalstay considering that the patient may need cardiac cath and contrast exposure during hospital stay Patient has DM2 for many years however currently is diet controlled. He has severe peripheral arterial disease with intermittent claudications. He was evaluated by vascular surgery and according to the family he had Co2 angiogram rather than diet because of risk of ALICIA. Is currently on Pletal with no plan ofsurgery at this point. His lab today was reviewed. Patient has mild anemia with hemoglobin of 10.1. INR 1.0. He has mild acidosis with CO2 18.4. Creatinine 2.93 and potassium 4.2. BNP was mildly elevated 494 with albumin 3.5. Initial troponin was only 17 however the second troponin is up to 754. Chest x-ray showed cardiomegaly with mild pulmonary congestion. He has been on chlorthalidone. Patient was tested negative for COVID-19 on admission. He was evaluated by cardiology, Dr. Murdock and is currently on conservative treatment pending the results of cardiac enzymes and serial EKGs. Patient stated that he has no more chest pain. He has shortness of breath on mild exertion. He has generalized fatigability with decreased endurance. No nausea or vomiting. No abdominal pain. No hematemesis or melena. He has no urinary symptoms. No history of kidney stones. Interval history: Patient still have dyspnea. Patient said his breathing gets worse with any exertion. On nonrebreather V mask at 15 L/min Denied ongoing chest pain. He remains on heparin drip and nitroglycerin drip Denied nausea vomiting. Denies urinary obstructive symptoms. Denied diarrhea or abdominal pain Exam Physical Exam Vital Signs: Temp Pulse Resp BP Pulse Ox O2 Del Method O2 Flow Rate 97.8 F 74 22 143/65 H 92 L Venturi Mask 12 02/11/22 12:35 02/11/22 12:42 02/11/22 12:42 02/11/22 12:35 02/11/22 12:42 02/11/22 12:42 02/11/22 12:42 FiO2 50 02/11/22 12:42 Narrative: General: No acute distress. On nonrebreather V mask at 15 L/min Head :atraumatic normocephalic Eyes: PERRLA. Pale conjunctiva Neck: no JVD no bruit. Heart: S1-S2. RRR Respiratory: Bilateral lungs crackles. No wheezing Abdomen: Soft, positive bowel sounds,no tenderness. Neurology: Awake alert oriented x3. No focal deficits Extremity. No cyanosis. +2 edema of lower extremities Skin: No skin rash Objective Intake and Output I&O: Intake & Output 02/08/22 02/09/22 02/10/22 02/11/22 23:59 23:59 23:59 23:59 Intake Total 400 / 400 250 / 250 Output Total 1085 / 1085 900 / 900 Balance -685 / -685 -650 / -650 Weight 97.7 kg 96.8 kg Meds and Allergies Meds: Active Medications Acetaminophen (Acetaminophen 325 Mg Tablet) 650 mg PO Q6HR PRN PRN Reason: Pain Scale 1 - 3 or fever Stop: 02/10/23 10:39 Last Admin: 02/10/22 21:35 Dose: 650 mg Amiodarone HCl (Amiodarone 200 Mg Tablet) 200 mg PO DAILY COUNTS INCLUDE 234 BEDS AT THE [facility] Stop: 02/11/23 08:59 Last Admin: 02/11/22 08:20 Dose: 200 mg Ascorbic Acid (Ascorbic Acid 500 Mg Tablet) 500 mg PO DAILY COUNTS INCLUDE 234 BEDS AT THE [facility] Stop: 02/11/23 08:59 Last Admin: 02/11/22 08:20 Dose: 500 mg Aspirin (Aspirin 81 Mg Tablet.Dr) 81 mg PO DAILY COUNTS INCLUDE 234 BEDS AT THE [facility] Stop: 02/11/23 08:59 Last Admin: 02/11/22 08:20 Dose: 81 mg Atorvastatin Calcium (Atorvastatin 80 Mg Tablet) 80 mg PO QHS COUNTS INCLUDE 234 BEDS AT THE [facility] Stop: 02/10/23 21:59 Last Admin: 02/10/22 21:34 Dose: 80 mg Clopidogrel Bisulfate (Clopidogrel Bisulfate 75 Mg Tablet) 75 mg PO DAILY COUNTS INCLUDE 234 BEDS AT THE [facility] Stop: 02/11/23 08:59 Last Admin: 02/11/22 08:20 Dose: 75 mg Dextrose (Dextrose 50% In Water 25 Gm/50 Ml Syringe) 0 gm IV-PUSH PRN PRN PRN Reason: Hypoglycemia Stop: 02/10/23 10:44 Dicyclomine HCl (Dicyclomine 20 Mg Tablet) 20 mg PO QID COUNTS INCLUDE 234 BEDS AT THE [facility] Stop: 02/10/23 13:59 Last Admin: 02/11/22 09:45 Dose: 20 mg Famotidine (Famotidine 20 Mg Tablet) 20 mg PO BID COUNTS INCLUDE 234 BEDS AT THE [facility] Stop: 02/10/23 15:29 Last Admin: 02/11/22 08:20 Dose: 20 mg Glucose (Dextrose 40% Gel 15 Gm Tube) 0 gm PO PRN PRN PRN Reason: Hypoglycemia Stop: 02/10/23 10:44 Heparin Sodium (Porcine) (Heparin *Protocol Bolus* 5,000 Unit/Ml Vial) 3,900 unit 40 unit/kg (3900 unit) IV-PUSH PROTOCOL PRN PRN Reason: PTT 40-53 Stop: 02/10/23 14:02 Last Admin: 02/11/22 08:21 Dose: 3,900 unit Heparin Sodium (Porcine) (Heparin *Protocol Bolus* 5,000 Unit/Ml Vial) 4,000 unit IV-PUSH PROTOCOL PRN PRN Reason: PTT < 40 Stop: 02/10/23 14:02 Heparin Sodium/Sodium Chloride (Heparin) 25,000 unit in 250 mls @ 10 mls/hr IV .Q24H COUNTS INCLUDE 234 BEDS AT THE [facility]; Protocol Stop: 02/13/22 11:15 Last Titration: 02/11/22 08:21 Dose: 1,400 units/hr, 14 mls/hr Nitroglycerin/Dextrose (Nitroglycerin 50 Mg-*D5w*) 50 mg in 250 mls @ 1.5 mls/hr IV .Q24H COUNTS INCLUDE 234 BEDS AT THE [facility]; Protocol Stop: 02/10/23 15:59 Last Titration: 02/11/22 01:00 Dose: 5 mcg/min, 1.5 mls/hr Insulin Aspart (Insulin Aspart 300 Units/3 Ml Insuln.Pen) 0 units SUBCUT TID.WM.HS COUNTS INCLUDE 234 BEDS AT THE [facility]; Protocol Stop: 02/10/23 11:59 Last Admin: 02/11/22 12:28 Dose: 1 units Levothyroxine Sodium (Levothyroxine 100 Mcg Tablet) 100 mcg PO DAILY@0630 COUNTS INCLUDE 234 BEDS AT THE [facility] Stop: 02/10/23 17:59 Last Admin: 02/11/22 06:29 Dose: Not Given Metoprolol Succinate (Metoprolol Succinate 100 Mg Tab.Er.24h) 100 mg PO DAILY COUNTS INCLUDE 234 BEDS AT THE [facility] Stop: 02/10/23 17:59 Last Admin: 02/11/22 08:20 Dose: 100 mg Miscellaneous Information (Consult To Pharmacy) 1 each MISCELLANE .PHACONSULT PRN; Protocol PRN Reason: PAYTON.Pharmacy Consult Stop: 02/11/23 10:36 Omeprazole (Omeprazole 20 Mg Capsule.Dr) 40 mg PO DAILY COUNTS INCLUDE 234 BEDS AT THE [facility] Stop: 02/11/23 08:59 Last Admin: 02/11/22 08:20 Dose: 40 mg Potassium Chloride (Potassium Chloride Er 20 Meq Tab.Er.Prt) 40 meq PO STAT PRN PRN Reason: Hypokalemia Sodium Bicarbonate (Sodium Bicarbonate 650 Mg Tablet) 650 mg PO TID COUNTS INCLUDE 234 BEDS AT THE [facility] Stop: 02/10/23 15:29 Last Admin: 02/11/22 08:20 Dose: 650 mg Sodium Chloride (Sodium Chloride 0.9 % 10 Ml Syringe) 0 ml IV-PUSH PRN PRN PRN Reason: Flush Stop: 02/10/23 06:17 Sodium Chloride (Sodium Chloride 0.9 % 10 Ml Syringe) 0 ml IV-PUSH QSHIFT COUNTS INCLUDE 234 BEDS AT THE [facility] Stop: 02/10/23 13:59 Last Admin: 02/11/22 06:29 Dose: 10 ml Sodium Chloride (Sodium Chloride 0.9 % 10 Ml Syringe) 0 ml IV-PUSH PRN PRN PRN Reason: Flush Stop: 02/11/23 10:36 Last Admin: 02/11/22 10:48 Dose: 10 ml Allergies levofloxacin Allergy (Verified 02/10/22 06:20) Rash Penicillins Allergy (Verified 02/10/22 06:20) Swelling, rash Results Labs CBC & Chem 7: 02/11/22 06:31 02/11/22 06:31 Labs: 02/10/22 02/11/22 15:12 06:31 BUN 32 H Creatinine 2.99 H Phosphorus 4.3 Urine Color Yellow Urine Appearance Clear Urine pH 6.0 Ur Specific Wayne 1.015 Urine Protein Negative Urine Glucose (UA) Normal Urine Ketones Negative Urine Occult Blood Negative Urine Nitrite Negative Ur Leukocyte Esterase Negative Radiology Impressions Impressions - last 24 hours: Impressions Renal Ultrasound 02/10/22 05:00 IMPRESSION: No hydronephrosis. Impression dictated by: Hussein Clayton M.D.02/11/2022 7:53 AM Dictation Location: [place] [address] Any impression(s) listed above is documentation that was entered by the reading physician into a diagnostic report(s) for Apolinar Norman. I have reviewed the report(s) and am incorporating any findings in the treatment plan of this patient where applicable. A&P - Nephrology Assessment/Plan (1) Chronic kidney disease (CKD): Assessment/Problem Details: Patient seems to have progressive CKD in the setting of DM2, HTN and atherosclerotic renovascular disease. Patient has CKD stage IV at baseline. Serum creatinine was 2.5 mg/dL with GFR 24 mL/min in April 2021. UA is benignexcept mild protein. Renal ultrasound shows asymmetric renal sizes with the right kidney measures 15 x 7.5 cm and the left kidney measures 9.4 x 5.6 cm. This is likely related to vascular disease (2) Acute coronary syndrome: Assessment/Problem Details: Patient presented with chest pressure currently with elevated troponin. He is on heparin drip at nitroglycerin drip for acute coronary syndrome. Cardiology is following. The plan to do cardiac cath Friday at 1 PM (3) CHF (congestive heart failure): Assessment/Problem Details: Chest x-ray showed cardiomegaly and pulmonary congestion. He has bilateral lower extremity edema 2+. He has shortness of breath on mild exertion. No 2D echo available to evaluate ejection fraction. (4) Hypertension: Assessment/Problem Details: Blood pressure is mildly elevated with edema, patient on amlodipine (5) Diabetes mellitus, type 2: Assessment/Problem Details: Patient has history of diabetes mellitus however currently on diet only. Patient stated that he takes diabetes medications however I do not see anything listed in his home medications. Hemoglobin A1c has been (6) Acute kidney injury: Assessment/Problem Details: Acute kidney injury is likely from cardiorenal syndrome. Patient was given 2 doses of Lasix yesterday with good response. Kidney function remained stable. Patient is not on EDILMA inhibitor or ARB for ACS due to worsening kidney function. Plan * Acute kidney injury is likely from cardiorenal syndrome as the patient presented with acute coronary syndrome with CHF * Patient responded well to 2 doses of Lasix with stable kidney function .serum creatinine is at 2.9 mg/dL * I will continue Lasix at 40 mg 3 times daily. * There is no urgent need for hemodialysis. I will continue to evaluate renal function panel along with volume status and electrolytes daily * I explained to the patient and his daughter at bedside that patient at risk for worsening kidney function with IV contrast exposure and he might need dialysis . I explained to them that cardiac cath overweighs the risk of worsening kidney function as he has active ACS with a history of CABG. They verbalized understanding * Will plan to stop diuretics Friday morning and start normal saline at 75 cc/h for 3 hours prior to cardiac cath * Patient has mild acidosis in the setting of stage IV CKD, will continue sodium bicarbonate orally 650 mg 3 times daily to slow progression of CKD. * Hemoglobin stable at 10 g/dL. Evaluation of anemia and hyperparathyroidism will be done after resolution of acute coronary syndrome and CHF. * Check renal function panel in the morning * Continue accurate input and output * Cardiology is following for ACS Renal team will continue to follow. Call if any question. Documented By: Sophia Woo MD 02/11/22 [id number] Signed By: <Electronically signed by Sophia Woo MD> 02/11/22 5383 [facility] Work Phone: [phone]) 515-964908-01-2022 Progress note Author W Morteza [facility] February 11, 2022 10:39am Note Date/Time February 11, 2022 10: 27am [facility] [address] [place] [address] Cardiology Progress Note Signed Patient: Apolinar Norman MR#: [id number] [birth year] : 1940 Acct:[id number] Age/Sex: 82 / M Adm Date: 2 Loc: Room: [address] [place] [address] Type: ADM IN Attending Dr: Mere Nelson MD Copies to: ~ Date of Service: 02/11/2022 Subjective Principal diagnosis: NSTEMI, CHF, PVD Interval history: Patient without chest pain this morning remains on simple mask with mild dyspneaat rest. Troponin up to 1300, serum creatinine up to 2.99; chest x-ray from yesterday definitely reveals pulmonary vascular redistribution consistent with CHF. Patient recently underwent CO2 angiography of the lower extremities with institution of cilostazol. Cilostazol is contraindicated in any type of CHF. Discussed case with patient and family extensively in regards to informed decision-making process, risk benefits of angiography and potential progressive renal failure/potential need for dialysis. Patient has residual vein graft disease with in-stent restenosis and progressive chicken ranch RCA disease (April angiogram) with reportedly preserved LV function (December 2021 echo). As serum creatinine is climbing, will hold off on angiography presently, concur with nephrology and the treatment plan. We will attempt PCI on Friday afternoon (no need for complete heart cath) as long as serum creatinine is stable or declining. Exam Physical Exam Vital Signs: Temp Pulse Resp BP Pulse Ox O2 Del Method O2 Flow Rate 98.9 F 78 22 136/62 95 Nonrebreather 15 02/11/22 07:57 02/11/22 08:18 02/11/22 08:18 02/11/22 08:18 02/11/22 08:18 02/11/22 08:30 02/11/22 08:30 FiO2 55 02/11/22 08:30 Const General: cooperative, no acute distress, disheveled and ill appearing Orientation: alert, awake and oriented x3 HEENT Head: normal to inspection Neck Neck: normal visual inspection Chest Chest palpation & inspection: normal inspection of the chest Resp Effort & Inspection: able to speak in complete sentences and abnormal respiratory pattern Auscultation: crackles Cardio Palpation: normal PMI Rate: regular rate Rhythm: regular rhythm Heart Sounds: S1 normal and S2 normal GI Palpation: soft Skin General: no rashes or lesions noted Neuro General: patient alert, patient awake and patient oriented x3 Cognition: normal cognition Speech: speech normal Extrem General: no clubbing, cyanosis or edema Objective Labs CBC & Chem 7: 02/11/22 06:31 02/11/22 06:31 Labs: Laboratory Results - last 24 hr 02/10/22 02/10/22 02/10/22 06:25 06:25 10:56 Corrected WBC Uncorrected WBC Count RBC Hgb Hct MCV MCH MCHC RDW Plt Count MPV Neut % (Auto) Lymph % (Auto) [place] % (Auto) Eos % (Auto) Baso % (Auto) Neut # (Auto) Lymph # (Auto) [place] # (Auto) Eos # (Auto) Baso # (Auto) Nucleated RBC % (auto) APTT PHA Creatinine Clear Sodium Potassium Chloride Carbon Dioxide BUN Creatinine Est GFR ( Amer) Est GFR (Non-Af Amer) Glucose POC Glucose POC Glucose Comment Estimat Average Glucose 111 Hemoglobin A1c 5.5 Calcium Phosphorus Magnesium Troponin I High Sens 754 H* Total T4 7.98 Free T4 1.23 H TSH 3rd Generation 3.97 Urine Color Urine Appearance Urine pH Ur Specific Wayne Urine Protein Urine Glucose (UA) Urine Ketones Urine Occult Blood Urine Nitrite Urine Bilirubin Urine Urobilinogen Ur Leukocyte Esterase Ur Random Creatinine U Random Total Protein 02/10/22 02/10/22 02/10/22 11:27 13:31 13:32 Corrected WBC Uncorrected WBC Count RBC Hgb Hct MCV MCH MCHC RDW Plt Count MPV Neut % (Auto) Lymph % (Auto) [place] % (Auto) Eos % (Auto) Baso % (Auto) Neut # (Auto) Lymph # (Auto) [place] # (Auto) Eos # (Auto) Baso # (Auto) Nucleated RBC % (auto) APTT 49.9 H PHA Creatinine Clear Sodium Potassium Chloride Carbon Dioxide BUN Creatinine Est GFR ( Amer) Est GFR (Non-Af Amer) Glucose POC Glucose 91 POC Glucose Comment Estimat Average Glucose Hemoglobin A1c Calcium Phosphorus Magnesium Troponin I High Sens 961 H* Total T4 Free T4 TSH 3rd Generation Urine Color Urine Appearance Urine pH Ur Specific Wayne Urine Protein Urine Glucose (UA) Urine Ketones Urine Occult Blood Urine Nitrite Urine Bilirubin Urine Urobilinogen Ur Leukocyte Esterase Ur Random Creatinine U Random Total Protein 02/10/22 02/10/22 02/10/22 15:12 15:12 16:01 Corrected WBC Uncorrected WBC Count RBC Hgb Hct MCV MCH MCHC RDW Plt Count MPV Neut % (Auto) Lymph % (Auto) [place] % (Auto) Eos % (Auto) Baso % (Auto) Neut # (Auto) Lymph # (Auto) [place] # (Auto) Eos # (Auto) Baso # (Auto) Nucleated RBC % (auto) APTT PHA Creatinine Clear Sodium Potassium Chloride Carbon Dioxide BUN Creatinine Est GFR ( Amer) Est GFR (Non-Af Amer) Glucose POC Glucose POC Glucose Comment Estimat Average Glucose Hemoglobin A1c Calcium Phosphorus Magnesium Troponin I High Sens 964 H* Total T4 Free T4 TSH 3rd Generation Urine Color Yellow Urine Appearance Clear Urine pH 6.0 Ur Specific Wayne 1.015 Urine Protein Negative Urine Glucose (UA) Normal Urine Ketones Negative Urine Occult Blood Negative Urine Nitrite Negative Urine Bilirubin Negative Urine Urobilinogen Normal Ur Leukocyte Esterase Negative Ur Random Creatinine 135.1 U Random Total Protein 15 H 02/10/22 02/10/22 02/10/22 16:31 21:27 21:36 Corrected WBC Uncorrected WBC Count RBC Hgb Hct MCV MCH MCHC RDW Plt Count MPV Neut % (Auto) Lymph % (Auto) [place] % (Auto) Eos % (Auto) Baso % (Auto) Neut # (Auto) Lymph # (Auto) [place] # (Auto) Eos # (Auto) Baso # (Auto) Nucleated RBC % (auto) APTT 63.1 H PHA Creatinine Clear Sodium Potassium Chloride Carbon Dioxide BUN Creatinine Est GFR ( Amer) Est GFR (Non-Af Amer) Glucose POC Glucose 139 149 POC Glucose Comment Glu2: cleaned meter Estimat Average Glucose Hemoglobin A1c Calcium Phosphorus Magnesium Troponin I High Sens Total T4 Free T4 TSH 3rd Generation Urine Color Urine Appearance Urine pH Ur Specific Wayne Urine Protein Urine Glucose (UA) Urine Ketones Urine Occult Blood Urine Nitrite Urine Bilirubin Urine Urobilinogen Ur Leukocyte Esterase Ur Random Creatinine U Random Total Protein 02/11/22 02/11/22 02/11/22 06:31 06:31 06:31 Corrected WBC 9.1 Uncorrected WBC Count 9.1 RBC 3.02 L Hgb 10.0 L Hct 29.6 L MCV 97.9 MCH 33.2 MCHC 33.9 RDW 13.9 Plt Count 149 L MPV 9.7 Neut % (Auto) 85.2 Lymph % (Auto) 5.5 [place] % (Auto) 8.8 Eos % (Auto) 0.2 Baso % (Auto) 0.3 Neut # (Auto) 7.7 Lymph # (Auto) 0.5 L [place] # (Auto) 0.8 Eos # (Auto) 0.0 Baso # (Auto) 0.0 Nucleated RBC % (auto) 0.1 APTT PHA Creatinine Clear 23.37 Sodium 136 Potassium 4.3 Chloride 106 Carbon Dioxide 21.8 L BUN 32 H Creatinine 2.99 H Est GFR ( Amer) 25 Est GFR (Non-Af Amer) 20 Glucose 131 H POC Glucose POC Glucose Comment Estimat Average Glucose Hemoglobin A1c Calcium 8.6 Phosphorus 4.3 Magnesium 2.1 Troponin I High Sens 1324 H* Total T4 Free T4 TSH 3rd Generation Urine Color Urine Appearance Urine pH Ur Specific Wayne Urine Protein Urine Glucose (UA) Urine Ketones Urine Occult Blood Urine Nitrite Urine Bilirubin Urine Urobilinogen Ur Leukocyte Esterase Ur Random Creatinine U Random Total Protein 02/11/22 02/11/22 07:24 07:37 Corrected WBC Uncorrected WBC Count RBC Hgb Hct MCV MCH MCHC RDW Plt Count MPV Neut % (Auto) Lymph % (Auto) [place] % (Auto) Eos % (Auto) Baso % (Auto) Neut # (Auto) Lymph # (Auto) [place] # (Auto) Eos # (Auto) Baso # (Auto) Nucleated RBC % (auto) APTT 50.0 H PHA Creatinine Clear Sodium Potassium Chloride Carbon Dioxide BUN Creatinine Est GFR ( Amer) Est GFR (Non-Af Amer) Glucose POC Glucose 124 POC Glucose Comment Estimat Average Glucose Hemoglobin A1c Calcium Phosphorus Magnesium Troponin I High Sens Total T4 Free T4 TSH 3rd Generation Urine Color Urine Appearance Urine pH Ur Specific Wayne Urine Protein Urine Glucose (UA) Urine Ketones Urine Occult Blood Urine Nitrite Urine Bilirubin Urine Urobilinogen Ur Leukocyte Esterase Ur Random Creatinine U Random Total Protein A&P - Cardiology (1) Coronary artery disease: Assessment/Problem Details: Longstanding history of coronary disease with previous surgical intervention andother coronary interventions. Code(s): I25.10 - Atherosclerotic heart disease of chicken ranch coronary artery without angina pectoris Status: Acute (2) Chest pain: Assessment/Problem Details: Chest pain may be angina but on the other hand it could be gastrointestinal. Curiously had no symptoms yesterday with exertion but last night he had symptomsat rest recumbent in bed. Usually if there is rest pain there is ST segment change and/or troponin rise consistent with acute coronary syndrome (plaque rupture). Code(s): R07.9 - Chest pain, unspecified Status: Acute (3) CHF (congestive heart failure): Code(s): I50.9 - Heart failure, unspecified Status: Acute Plan: Agree with nephrology, diuresis (4) Acute coronary syndrome: Assessment/Problem Details: Hold off on PCI until serum creatinine is plateaued or declining Code(s): I24.9 - Acute ischemic heart disease, unspecified Status: Acute Plan Conservative therapy with heparin and his home regimen. Documented By: Emilia Pro DO 02/11/22 1026 Signed By: <Electronically signed by Emilia Pro DO> 02/11/22 1039 [facility] Work Phone: [phone] 425-261307-31-2022 Consult note Author Jonathon Ring [facility] February 10, 2022 2:25pm Note Date/Time February 10, 2022 2:25 pm [facility] [address] [place] [address] Nephrology Consult Note Signed Patient: Apolinar Norman MR#: [id number] [birth year] : 1940 Acct:[id number] Age/Sex: 82 / M Adm Date: 2 Loc: Room: [address] [place] [address] Type: ADM IN Attending Dr: Frantz Weinstein DO Copies to: MD Jonathon Figueroa II, MD Kristopher L Lindbloom, DO~ Providers Consult Date: 02/10/22 Requesting Provider: Frantz Weinstein DO Primary Care Provider: Justo Cameron II, MD [facility] Reason for Consult: Progressive CKD, patient may need contrast exposure History of Present Illness: Mr. Norman is an 82-year-old white gentleman with history of CAD s/p CABG, DM2, PAD and progressive CKD over the last few years. Patient presented to the ER on02/10 with severe crushing chest pain that wake him up from sleep. He had nitroglycerin with no relief so he decided to come to the ER. He had additionalnitroglycerin and aspirin on route with improvement of chest pain. EKG and ED showed ST segment depression. Dr. Pro was contacted from the ER and the patient was started on heparin drip. On arrival, his creatinine was 2.93 mg/dL that higher from creatinine 2.7 on December 2021 and 2.57 on April 2021. The family and the patient did note that he has CKD that seems to be progressing andpossibly will need dialysis in the future however never been evaluated by nephrology but he supposed to see 1 soon.. Recently lisinopril was stopped withhope of improvement of renal function. Nephrology was consulted during hospitalstay considering that the patient may need cardiac cath and contrast exposure during hospital stay Patient has DM2 for many years however currently is diet controlled. He has severe peripheral arterial disease with intermittent claudications. He was evaluated by vascular surgery and according to the family he had Co2 angiogram rather than diet because of risk of ALICIA. Is currently on Pletal with no plan ofsurgery at this point. His lab today was reviewed. Patient has mild anemia with hemoglobin of 10.1. INR 1.0. He has mild acidosis with CO2 18.4. Creatinine 2.93 and potassium 4.2. BNP was mildly elevated 494 with albumin 3.5. Initial troponin was only 17 however the second troponin is up to 754. Chest x-ray showed cardiomegaly with mild pulmonary congestion. He has been on chlorthalidone. Patient was tested negative for COVID-19 on admission. He was evaluated by cardiology, Dr. Murdock and is currently on conservative treatment pending the results of cardiac enzymes and serial EKGs. Patient stated that he has no more chest pain. He has shortness of breath on mild exertion. He has generalized fatigability with decreased endurance. No nausea or vomiting. No abdominal pain. No hematemesis or melena. He has no urinary symptoms. No history of kidney stones. Review of Systems Review of Systems All other systems reviewed & are negative unless noted below or in HPI Constitutional Constitutional: Reports system reviewed and no additional complaints, except as documented Cardiovascular Cardiovascular: Reports system reviewed and no additional complaints, except as documented Respiratory Respiratory: Reports system reviewed and no additional complaints, except as documented Gastrointestinal Gastrointestinal: Reports system reviewed and no additional complaints, except as documented Genitourinary Genitourinary: Reports system reviewed and no additional complaints, except as documented Neurologic Neurologic: Reports system reviewed and no additional complaints, except as documented Hematologic/Lymphatic Hematologic/Lymphatic: Reports system reviewed and no additional complaints, except as documented PMFSH Vaccinated for COVID-19?: Yes Medical History (Updated 02/10/22 @ 14:14 by Jonathon Ring MD) Arthritis Chest pain not recent Chronic kidney disease (CKD) Coronary artery disease Diabetes mellitus, type 2 GERD (gastroesophageal reflux disease) Hyperlipidemia Hypertension Hypothyroidism Myocardial infarct Pacemaker Peripheral vascular disease Skin cancer Surgical History History of cardiac catheterization History of phacoemulsification of cataract of both eyes with intraocular lens implantation History of vascular surgery PVD-stents in legs S/P CABG (coronary artery bypass graft) S/P colonoscopic polypectomy Stented coronary artery Family History Father Kidney failure CHF (congestive heart failure) Diabetes Mother Diverticulitis Social History Smoking Status: Former smoker Tobacco Type: cigarettes Substance Use Type: Alcohol Substance Abuse Comment: 1 beer daily. Quit smoking in the 1980s. Meds Medications & Allergies Allergies levofloxacin Allergy (Verified 02/10/22 06:20) Rash Penicillins Allergy (Verified 02/10/22 06:20) Swelling, rash Home Medications amlodipine 5 mg tablet 10 mg PO DAILY 04/24/21 [History Confirmed 02/10/22] ascorbic acid (vitamin C) 500 mg tablet (Vitamin C) 100 mg PO DAILY 04/24/21 [History Confirmed 02/10/22] aspirin 81 mg tablet,delayed release 81 mg PO DAILY 04/24/21 [History Confirmed 02/10/22] atorvastatin 80 mg tablet 80 mg PO DAILY 04/24/21 [History Confirmed 02/10/22] clopidogrel 75 mg tablet 75 mg PO DAILY 04/24/21 [History Confirmed 02/10/22] dicyclomine 20 mg tablet 20 mg PO BID 04/24/21 [History Confirmed 02/10/22] glyburide 1.25 mg tablet 1.25 mg PO DAILY DM 04/24/21 [History Confirmed 02/10/22] levothyroxine 100 mcg tablet 100 mcg PO DAILY 04/24/21 [History Confirmed 02/10/22] metoprolol succinate 25 mg tablet,extended release 24 hr 25 mg PO DAILY 04/24/21[History Confirmed 02/10/22] isosorbide mononitrate 30 mg tablet,extended release 24 hr 30 mg PO DAILY 01/10/22 [History Confirmed 02/10/22] amiodarone 200 mg tablet 200 mg PO DAILY 02/10/22 [History Confirmed 02/10/22] cilostazol 100 mg tablet 100 mg PO BID 02/10/22 [History Confirmed 02/10/22] diphenhydramine HCl 25 mg capsule (Benadryl) 25 mg PO BID 02/10/22 [History Confirmed 02/10/22] omeprazole 40 mg capsule,delayed release 40 mg PO DAILY 02/10/22 [History Confirmed 02/10/22] Active Medications: Active Medications Acetaminophen (Acetaminophen 325 Mg Tablet) 650 mg PO Q6HR PRN PRN Reason: Pain Scale 1 - 3 or fever Stop: 02/10/23 10:39 Amlodipine Besylate (Amlodipine 5 Mg Tablet) 5 mg PO DAILY COUNTS INCLUDE 234 BEDS AT THE [facility] Stop: 02/11/23 08:59 Ascorbic Acid (Ascorbic Acid 500 Mg Tablet) 500 mg PO DAILY REVA Stop: 02/11/23 08:59 Aspirin (Aspirin 81 Mg Tablet.) 81 mg PO DAILY REVA Stop: 02/11/23 08:59 Atorvastatin Calcium (Atorvastatin 80 Mg Tablet) 80 mg PO QHS REVA Stop: 02/10/23 21:59 Chlorthalidone (Chlorthalidone 25 Mg Tablet) 25 mg PO DAILY REVA Stop: 02/11/23 08:59 Cilostazol (Cilostazol 100 Mg Tablet) 100 mg PO BID REVA Stop: 02/10/23 20:59 Clopidogrel Bisulfate (Clopidogrel Bisulfate 75 Mg Tablet) 75 mg PO DAILY REVA Stop: 02/11/23 08:59 Dextrose (Dextrose 50% In Water 25 Gm/50 Ml Syringe) 0 gm IV-PUSH PRN PRN PRN Reason: Hypoglycemia Stop: 02/10/23 10:44 Diclofenac Sodium (Diclofenac Sodium 75 Mg Tablet.) 75 mg PO DAILY REVA Stop: 02/11/23 08:59 Dicyclomine HCl (Dicyclomine 20 Mg Tablet) 20 mg PO QID REVA Stop: 02/10/23 13:59 Famotidine (Famotidine 20 Mg Tablet) 20 mg PO BID COUNTS INCLUDE 234 BEDS AT THE [facility] Stop: 02/10/23 12:09 Glucose (Dextrose 40% Gel 15 Gm Tube) 0 gm PO PRN PRN PRN Reason: Hypoglycemia Stop: 02/10/23 10:44 Heparin Sodium/Sodium Chloride (Heparin) 25,000 unit in 250 mls @ 10 mls/hr IV .Q24H COUNTS INCLUDE 234 BEDS AT THE [facility]; Protocol Stop: 02/10/23 07:29 Last Admin: 02/10/22 07:47 Dose: 10 mls/hr, 10 mls/hr Insulin Aspart (Insulin Aspart 300 Units/3 Ml Insuln.Pen) 0 units SUBCUT TID.WM.HS COUNTS INCLUDE 234 BEDS AT THE [facility]; Protocol Stop: 02/10/23 11:59 Last Admin: 02/10/22 11:54 Dose: Not Given Isosorbide Mononitrate (Isosorbide Mononitrate 24hr Er 60 Mg Tab.Er.24h) 60 mg PO DAILY COUNTS INCLUDE 234 BEDS AT THE [facility] Stop: 02/11/23 08:59 Levothyroxine Sodium (Levothyroxine 100 Mcg Tablet) 100 mcg PO DAILY COUNTS INCLUDE 234 BEDS AT THE [facility] Stop: 02/10/23 10:59 Metoprolol Succinate (Metoprolol Succinate 100 Mg Tab.Er.24h) 100 mg PO DAILY COUNTS INCLUDE 234 BEDS AT THE [facility] Stop: 02/10/23 10:49 Sodium Chloride (Sodium Chloride 0.9 % 10 Ml Syringe) 0 ml IV-PUSH PRN PRN PRN Reason: Flush Stop: 02/10/23 06:17 Sodium Chloride (Sodium Chloride 0.9 % 10 Ml Syringe) 0 ml IV-PUSH QSHIFT COUNTS INCLUDE 234 BEDS AT THE [facility] Stop: 02/10/23 13:59 Exam Physical Exam Vital Signs: Temp Pulse Resp BP Pulse Ox O2 Del Method O2 Flow Rate 36.7 C 73 18 143/68 H 96 Nasal Cannula 2 02/10/22 11:11 02/10/22 11:11 02/10/22 11:11 02/10/22 11:11 02/10/22 11:11 02/10/22 12:24 02/10/22 12:24 Narrative: Constitutional: Moderately obese, laying flat in the bed. Appears comfortable and not in distress HEENT: Atraumatic, normocephalic. He has mild pallor. Mucous membranes are moist. Cardiovascular: RRR, normal S1-S2, no gallop or rub, No JVD Respiratory: Diminished breath sounds bilaterally with minimal crackles in the bases. No wheezes. Gastrointestinal: Distended, soft, non tender, positive bowel sounds. No palpable organs or masses. Extremities: 2+ edema. He has scar on the left leg of previous venous harvesting for CABG Skin: No rashes or bruises Musculoskeletal: No joints swellings or inflammation Neurology: Awake, alert, oriented ?3, No focal motor or sensory deficits Psych: Normal mood and affect Results Labs CBC & Chem 7: 02/10/22 06:25 02/10/22 06:25 Labs: 02/10/22 06:25 BUN 28 H Creatinine 2.93 H Albumin 3.5 Abnormal lab results 02/10/22 02/10/22 02/10/22 Range/Units 06:25 06:25 06:25 RBC 3.09 L (3.90-5.60) x10E6/uL Hgb 10.1 L (13.0-17.0) g/dL Hct 30.1 L (38.8-50.0) % Plt Count 146 L (150-450) x10E3/uL Lymph # (Auto) 0.7 L (1.00-4.8) x10E3/uL APTT (25.1-36.5) Seconds Carbon Dioxide 18.4 L (22.0-30.0) mmol/L BUN 28 H (9-23) mg/dL Creatinine 2.93 H (0.64-1.27) mg/dL Glucose 109 H (70-100) mg/dL Troponin I High Sens (0-20) pg/mL B-Natriuretic Peptide 494.0 H (5-100) pg/mL Total Protein 5.8 L (6.1-7.9) gm/dL Free T4 (0.61-1.12) ng/dL 02/10/22 02/10/22 02/10/22 Range/Units 06:25 10:56 13:31 RBC (3.90-5.60) x10E6/uL Hgb (13.0-17.0) g/dL Hct (38.8-50.0) % Plt Count (150-450) x10E3/uL Lymph # (Auto) (1.00-4.8) x10E3/uL APTT 49.9 H (25.1-36.5) Seconds Carbon Dioxide (22.0-30.0) mmol/L BUN (9-23) mg/dL Creatinine (0.64-1.27) mg/dL Glucose (70-100) mg/dL Troponin I High Sens 754 H* (0-20) pg/mL B-Natriuretic Peptide (5-100) pg/mL Total Protein (6.1-7.9) gm/dL Free T4 1.23 H (0.61-1.12) ng/dL Radiology Impressions Impressions - last 24 hours: Impressions Chest X-Ray 02/10/22 06:27 IMPRESSION: Mild cardiomegaly. Mild vascular congestion. Interstitial prominence suggesting pulmonary edema. Minimal RIGHT basilar pleural reaction. Impression dictated by: Hussein Clayton M.D.02/10/2022 8:39 AM Dictation Location: [place] [address] Any impression(s) listed above is documentation that was entered by the reading physician into a diagnostic report(s) for Apolinar Norman. I have reviewed the report(s) and am incorporating any findings in the treatment plan of this patient where applicable. ECG Data Attestation: I reviewed this ECG and interpreted as documented below: ECG Narrative: Normal sinus rhythm, incomplete left bundle branch block. Nonspecific ST?T waveabnormalities. Prolonged QT interval. A&P - Nephrology Assessment/Plan (1) Chronic kidney disease (CKD): Assessment/Problem Details: Patient seems to have progressive CKD in the setting of DM2, HTN and atherosclerotic renovascular disease. Creatinine has increased today to 2.93 mg/dL. He has an element of volume overload and CHF that may contribute to elevated creatinine above the baseline. Patient has never had work-up for CKD. I did not see urine analysis or ultrasound that will be ordered. (2) Acute coronary syndrome: Assessment/Problem Details: Patient presented with chest pressure currently with elevated troponin. He is on heparin drip for acute coronary syndrome. (3) CHF (congestive heart failure): Assessment/Problem Details: Chest x-ray showed cardiomegaly and pulmonary congestion. He has bilateral lower extremity edema 2+. He has shortness of breath on mild exertion. No 2D echo available to evaluate ejection fraction. (4) Hypertension: Assessment/Problem Details: Blood pressure is mildly elevated with edema, patient on amlodipine (5) Diabetes mellitus, type 2: Assessment/Problem Details: Patient has history of diabetes mellitus however currently on diet only. Patient stated that he takes diabetes medications however I do not see anything listed in his home medications. Hemoglobin A1c has been Plan * Since patient has CHF with volume overload and elevated blood pressure, I will stop chlorthalidone and add furosemide 40 mg IV x2 doses hoping to improve his hemodynamics and possibly renal function. We will switch to oral furosemide if renal function improves otherwise we will discontinue diuretics. Chlorthalidone does not work with advanced CKD * Will stop amlodipine to avoid drop of the blood pressure on diuresis. * Patient has mild acidosis in the setting of stage IV CKD, will add sodium bicarbonate orally 650 mg 3 times daily to slow progression of CKD. * Proceed with work-up of CKD including urine analysis, spot urine for protein and creatinine and bilateral kidney ultrasound. Hemoglobin stable more than 10 g/dL. Evaluation of anemia and hyperparathyroidism will be done after resolution of acute coronary syndrome and CHF. * Patient has no Luna catheter. We will check post void urine and insert Luna catheter if he has residual more than 200 cc. * Monitor total intake and output and renal panel. * Patient was informed that he has a progressive CKD in the setting of atherosclerotic renovascular disease and CHF. He has more risk for contrast nephropathy if he had contrast exposure however it may be necessary to preserve his systolic function and in fact it may improve his renal function if ejection fraction did improve with improvement of cardiac blood supply. If cardiac. Is needed, we will stop diuretics and will start IV fluid normal saline 1 L at rate of 100 cc/h before contrast exposure. Patient has risk of contrast-induced nephropathy about 57% and about 12% chance of dialysis based on contrast exposure 100 cc. I do believe it is reasonable toproceed with cardiac cath if indicated considering history of CABG, chest pressure and elevated troponin. Hypertensive consultation we will be happy to follow the patient with you duringhis hospital stay Documented By: Jonathon Ring MD 02/10/22 [id number] Signed By: <Electronically signed by MD Jonathon Ring> 02/10/22 85[address] [facility] Work Phone: [phone]) 501-845507-31-2022 Consult note Author Tawanda Murdock [facility] February 10, 2022 12:06pm Note Date/Time February 10, 2022 12:0 5pm [facility] [address] [place] [address] Cardiology Consult Note Signed Patient: Apolinar Norman MR#: [id number] 56 : 1940 Acct:[id number] Age/Sex: 82 / M Adm Date: 2 Loc: Room: [address] [place] [address] Type: ADM IN Attending Dr: Frantz Weinstein DO Copies to: MD Frantz Figueroa II, DO William Patrick McGuinn, MD~ Cardiology HPI History of Present Illness Consult Date: 02/10/22 Reason for Consult: Chest pain HPI: Mr. Norman is a 82 year old male seen for the above He is an individual known to me. He has a longstanding history of coronary disease with previous bypass surgery and other coronary interventions. He states this morning he awoke in bed with retrosternal chest pain. It did not goaway with nitroglycerin because of this he came to the emergency room. Additional nitroglycerin appeared to relieve his pain. He had no significant diaphoresis nausea or vomiting. Some subjective dyspnea but mild. Curiously he cut the grass yesterday and did a lot of trimming with a weed whip. It was very physically demanding work and he had no anginal discomfort whatsoever. He is known to have significant progressive coronary disease in particular stenosis and a vein graft stent. In the past intervention was not undertaken because of renal insufficiency and fear of precipitating renal failure necessitating dialysis. He recently underwent a carbon dioxide imaging study of the lower extremities. The demonstrates disease potential need of intervention but medical therapy was implemented. Recently has been no changes in medical therapy otherwise. He been compliant with all of his medicines and risk factors appear to be adequately managed. Review of Systems Review of Systems All other systems reviewed & are negative unless noted below or in HPI Constitutional Constitutional: Reports system reviewed and no additional complaints, except as documented Eyes Eyes: Reports system reviewed and no additional complaints, except as documented ENT Ears, Nose, Mouth, and Throat: Reports system reviewed and no additional complaints, except as documented Cardiovascular Cardiovascular: Reports as per HPI Respiratory Respiratory: Reports system reviewed and no additional complaints, except as documented Gastrointestinal Gastrointestinal: Reports system reviewed and no additional complaints, except as documented Genitourinary Genitourinary: Reports system reviewed and no additional complaints, except as documented Musculoskeletal Musculoskeletal: Reports system reviewed and no additional complaints, except asdocumented Integumentary/Breasts Skin/Breast: Reports system reviewed and no additional complaints, except as documented Neurologic Neurologic: Reports system reviewed and no additional complaints, except as documented Psychiatric Psychiatric: Reports system reviewed and no additional complaints, except as documented Endocrine Endocrine: Reports system reviewed and no additional complaints, except as documented Hematologic/Lymphatic Hematologic/Lymphatic: Reports system reviewed and no additional complaints, except as documented Allergic/Immunologic Allergic/Immunologic: Reports system reviewed and no additional complaints, except as documented PMFSH Vaccinated for COVID-19?: Yes Medical History (Updated 02/10/22 @ 10:57 by Frantz Weinstein DO) Arthritis Chest pain not recent Chronic kidney disease (CKD) Coronary artery disease Diabetes mellitus, type 2 GERD (gastroesophageal reflux disease) Hyperlipidemia Hypertension Hypothyroidism Myocardial infarct Pacemaker Peripheral vascular disease Skin cancer Surgical History History of cardiac catheterization History of phacoemulsification of cataract of both eyes with intraocular lens implantation History of vascular surgery PVD-stents in legs S/P CABG (coronary artery bypass graft) S/P colonoscopic polypectomy Stented coronary artery Family History Father Kidney failure CHF (congestive heart failure) Diabetes Mother Diverticulitis Social History Smoking Status: Former smoker Tobacco Type: cigarettes Substance Use Type: Alcohol Substance Abuse Comment: 1 beer daily. Quit smoking in the 1980s. Meds Medications and Allergies Allergies levofloxacin Allergy (Verified 02/10/22 06:20) Rash Penicillins Allergy (Verified 02/10/22 06:20) Swelling, rash Home Medications amlodipine 5 mg tablet 5 mg PO DAILY 04/24/21 [History Confirmed 02/10/22] ascorbic acid (vitamin C) 500 mg tablet (Vitamin C) 100 mg PO DAILY 04/24/21 [History Confirmed 02/10/22] aspirin 81 mg tablet,delayed release 81 mg PO DAILY 04/24/21 [History Confirmed 02/10/22] atorvastatin 80 mg tablet 80 mg PO QHS 04/24/21 [History Confirmed 02/10/22] clopidogrel 75 mg tablet 75 mg PO DAILY 04/24/21 [History Confirmed 02/10/22] dicyclomine 20 mg tablet 20 mg PO QID 04/24/21 [History Confirmed 02/10/22] glyburide 1.25 mg tablet 1.25 mg PO DAILY DM 04/24/21 [History Confirmed 02/10/22] levothyroxine 100 mcg tablet 100 mcg PO DAILY 04/24/21 [History Confirmed 02/10/22] lisinopril 20 mg tablet 20 mg PO DAILY 04/24/21 [History Confirmed 02/10/22] metoprolol succinate 25 mg tablet,extended release 24 hr 100 mg PO DAILY 04/24/21 [History Confirmed 02/10/22] aspirin 325 mg tablet,delayed release (Ecotrin) 325 mg PO DAILY 01/10/22 [History Confirmed 02/10/22] chlorthalidone 25 mg tablet 25 mg PO DAILY 01/10/22 [History Confirmed 02/10/22] diclofenac sodium 75 mg tablet,delayed release 75 mg PO DAILY 01/10/22 [History Confirmed 02/10/22] isosorbide mononitrate 30 mg tablet,extended release 24 hr 60 mg PO DAILY 01/10/22 [History Confirmed 02/10/22] cilostazol 100 mg tablet 100 mg PO BID 02/10/22 [History Confirmed 02/10/22] Exam Physical Exam Vital Signs: Temp Pulse Resp BP Pulse Ox O2 Del Method O2 Flow Rate 98.0 F 73 18 143/68 H 96 Nasal Cannula 2 02/10/22 11:11 02/10/22 11:11 02/10/22 11:11 02/10/22 11:11 02/10/22 11:11 02/10/22 11:36 02/10/22 11:36 HEENT Head: normal to inspection Ears: hearing grossly normal bilaterally Nose: external nose normal and nares normal Face and sinus: normal facial exam Mouth: oral mucosae normal and tongue normal Eyes Conjunctivae: conjunctivae normal Sclera: sclerae normal Neck Neck: normal visual inspection Carotids: normal carotid upstroke Lymphatic: no lymphadenopathy noted Chest Chest palpation & inspection: normal inspection of the chest Resp Effort & Inspection: normal respiratory effort Auscultation: clear to auscultation bilaterally Cardio Rate: regular rate Rhythm: regular rhythm Heart Sounds: S1 normal and S2 normal GI Inspection: normal to inspection Palpation: soft Skin General: no rashes or lesions noted Neuro General: patient alert, patient awake and patient oriented x3 Cognition: normal cognition Motor: muscle tone normal throughout Sensory Exam: no sensory deficits noted Results Labs CBC & CMP: 02/10/22 06:25 02/10/22 06:25 Lab results: Cardiac Enzymes 02/10/22 02/10/22 Range/Units 06:25 06:25 AST 16 (10-42) U/L B-Natriuretic Peptide 494.0 H (5-100) pg/mL CBC 02/10/22 Range/Units 06:25 RBC 3.09 L (3.90-5.60) x10E6/uL Hgb 10.1 L (13.0-17.0) g/dL Hct 30.1 L (38.8-50.0) % Plt Count 146 L (150-450) x10E3/uL Neut # (Auto) 6.8 (1.8-7.7) x10E3/uL Lymph # (Auto) 0.7 L (1.00-4.8) x10E3/uL [place] # (Auto) 0.8 (0.0-0.8) x10E3/uL Eos # (Auto) 0.2 (0.0-0.45) x10E3/uL Baso # (Auto) 0.0 (0.0-0.2) x10E3/uL Comprehensive Metabolic Panel 02/10/22 Range/Units 06:25 Sodium 136 (136-146) mmol/L Potassium 4.2 (3.5-5.1) mmol/L Chloride 107 (95-114) mmol/L Carbon Dioxide 18.4 L (22.0-30.0) mmol/L BUN 28 H (9-23) mg/dL Creatinine 2.93 H (0.64-1.27) mg/dL Glucose 109 H (70-100) mg/dL Calcium 8.6 (8.2-10.2) mg/dL AST 16 (10-42) U/L ALT 12 (10-60) U/L Alkaline Phosphatase 64 (32-92) U/L Total Protein 5.8 L (6.1-7.9) gm/dL Albumin 3.5 (3.2-5.5) gm/dL Intake and Output 02/09/22 02/10/22 02/10/22 23:59 07:59 15:59 Other: Weight 97.7 kg 97.7 kg Date of Last Bowel Movement 02/09/22 Patient Weight 02/10/22 23:59 Weight 97.7 kg Lab 02/10/22 06:25 PT 11.7 INR 1.0 APTT 30.6 A&P - Cardiology (1) Coronary artery disease: Assessment/Problem Details: Longstanding history of coronary disease with previous surgical intervention andother coronary interventions. Code(s): I25.10 - Atherosclerotic heart disease of [place] coronary artery without angina pectoris (2) Chest pain: Assessment/Problem Details: Chest pain may be angina but on the other hand it could be gastrointestinal. Curiously had no symptoms yesterday with exertion but last night he had symptomsat rest recumbent in bed. Usually if there is rest pain there is ST segment change and/or troponin rise consistent with acute coronary syndrome (plaque rupture). Code(s): R07.9 - Chest pain, unspecified Plan Conservative therapy with heparin and his home regimen. Documented By: Tawanda Murdock MD [id number] Signed By: <Electronically signed by MD Tawanda Murdock> 02/10/22 1206 [facility] Work Phone: [phone]) 464-776907-31-2022 History and physical note Author Frantz Weinstein [facility] February 10, 2022 11:00am Note Date/Time February 10, 2022 11:0 0am [facility] [address] [place] [address] Hospitalist H&P Signed Patient: Apolinar Norman MR#: [id number] [birth year] : 1940 Acct:[id number] Age/Sex: 82 / M Adm Date: 2 Loc: Room: [address] [place] [address] Type: ADM IN Attending Dr: Frantz Weinstein DO Copies to: MD Frantz Figueroa II, DO~ HPI DATE OF EXAMINATION: 02/10/22 CHIEF COMPLAINT: chest pain HISTORY OF PRESENT ILLNESS: This is an 82-year-old man who was woken up from sleep at about 4:00 in the morning with severe crushing chest pain. He took 2 nitroglycerin at home without any relief. On the ambulance ride and they gave him 1 dose of nitroglycerin and 325 mg of aspirin. When he presented the emergency room he had an EKG had some ST segment depressions per the ER doctor's verbal report. They contacted interventional cardiology with Dr. Pro. To the ER physician Dr. Pro requested a heparin drip. Of note the patient does have chronic kidney disease likely stage III to stage IV which has been progressive lately. His serum creatinine in the past was 2.57 and then more recently was 2.72 and now is up to 2.93. The patient had a vascular surgery evaluation of his lower extremities recently but his family members tell me that they think that the use CO2 and not IV dye . The patient was started on Pletal to see if that would help with his vascular claudication symptoms. He says that he has pain in his legs, particularly in the back of his calves and his thighs with minimal amount of ambulation. In the ER the patient accompanied by 2 daughters. They help give his history. He had a history of three-vessel CABG long ago. He has had stents since then. He did have a cardiac catheterization in April 2021, but no intervention at that time. The daughters and the patient do know that he has chronic kidney disease is severe. They are understandably worried about progression to hemodialysis. I did discuss the risks of progression of chronic kidney disease with them in some general in layman's terms. They do point out that the patienthad previously been taking lisinopril but that was stopped recently and hope that his renal function would improve. They did discuss that he has not seen a straight edger before but is supposed to get linked up with one very soon. He does work with vascular surgery with Dr. Talavera very closely for his peripheralarterial disease. He has a known stent I believe to his left lower extremity that is thought to be having reduced function recently. Review of Systems Review of Systems Review of systems: 10 systems are reviewed and are negative except as mentioned elsewhere in the documentation. [facility] Vaccinated for COVID-19?: Yes Medical History (Updated 02/10/22 @ 10:57 by Frantz Weinstein DO) Arthritis Chest pain not recent Chronic kidney disease (CKD) Coronary artery disease Diabetes mellitus, type 2 GERD (gastroesophageal reflux disease) Hyperlipidemia Hypertension Hypothyroidism Myocardial infarct Pacemaker Peripheral vascular disease Skin cancer Surgical History History of cardiac catheterization History of phacoemulsification of cataract of both eyes with intraocular lens implantation History of vascular surgery PVD-stents in legs S/P CABG (coronary artery bypass graft) S/P colonoscopic polypectomy Stented coronary artery Family History Father Kidney failure CHF (congestive heart failure) Diabetes Mother Diverticulitis Social History Smoking Status: Former smoker Tobacco Type: cigarettes Substance Use Type: Alcohol Substance Abuse Comment: 1 beer daily. Quit smoking in the . Meds Medications and Allergies Allergies levofloxacin Allergy (Verified 02/10/22 06:20) Rash Penicillins Allergy (Verified 02/10/22 06:20) Swelling, rash Home Medications amlodipine 5 mg tablet 5 mg PO DAILY 04/24/21 [History Confirmed 02/10/22] ascorbic acid (vitamin C) 500 mg tablet (Vitamin C) 100 mg PO DAILY 04/24/21 [History Confirmed 02/10/22] aspirin 81 mg tablet,delayed release 81 mg PO DAILY 04/24/21 [History Confirmed 02/10/22] atorvastatin 80 mg tablet 80 mg PO QHS 04/24/21 [History Confirmed 02/10/22] clopidogrel 75 mg tablet 75 mg PO DAILY 04/24/21 [History Confirmed 02/10/22] dicyclomine 20 mg tablet 20 mg PO QID 04/24/21 [History Confirmed 02/10/22] glyburide 1.25 mg tablet 1.25 mg PO DAILY DM 04/24/21 [History Confirmed 02/10/22] levothyroxine 100 mcg tablet 100 mcg PO DAILY 04/24/21 [History Confirmed 02/10/22] lisinopril 20 mg tablet 20 mg PO DAILY 04/24/21 [History Confirmed 02/10/22] metoprolol succinate 25 mg tablet,extended release 24 hr 100 mg PO DAILY 04/24/21 [History Confirmed 02/10/22] aspirin 325 mg tablet,delayed release (Ecotrin) 325 mg PO DAILY 01/10/22 [History Confirmed 02/10/22] chlorthalidone 25 mg tablet 25 mg PO DAILY 01/10/22 [History Confirmed 02/10/22] diclofenac sodium 75 mg tablet,delayed release 75 mg PO DAILY 01/10/22 [History Confirmed 02/10/22] isosorbide mononitrate 30 mg tablet,extended release 24 hr 60 mg PO DAILY 01/10/22 [History Confirmed 02/10/22] cilostazol 100 mg tablet 100 mg PO BID 02/10/22 [History Confirmed 02/10/22] Allergy/Medication Comments: Please note that the home medication list is felt to contain contain certain elements that are not accurate. Specifically, the lisinopril had been stopped per the family members report. They also were talking about something that sounded like amiodarone in the emergency room for rate control. This list of home medications will be updated during the hospital stay as more accurate information becomes available. Exam Physical Exam Vital Signs: Temp Pulse Resp BP Pulse Ox O2 Del Method O2 Flow Rate 97.3 F L 69 18 127/61 92 L Nasal Cannula 3 02/10/22 06:21 02/10/22 10:00 02/10/22 10:00 02/10/22 10:00 02/10/22 10:00 02/10/22 10:00 02/10/22 10:00 Narrative: GEN: Awake, alert, oriented x 3. Head: Normal Cephalic, Atraumatic. Eyes: Conjunctiva and sclera clear bilaterally. Nose: External nose and nares normal bilaterally. Mouth: Lips and tongue normal. Neck: No JVD. No thyromegaly. No lymphadenopathy. Lungs: Clear to auscultation bilaterally (anteriorly) with no wheezing, no crackles. Heart: Regular rate and a regular rhythm with HR about 70 BPM, no murmurs, rubs, or gallops to auscultation. Abdomen: Soft, normal bowel sounds, no rigidity, guarding, or acute peritoneal signs. Extremities: Both legs have a soft edema from the knees down to the ankles whichappears to be stable. Both legs are fairly warm. No acute areas of coolness. No swelling or knots in calves bilaterally. Skin: No systemic rashes or lesions. Psychiatric: Calm. Conversant. Cooperative. Neuro: Awake, Alert, and Oriented x 3. No gross focal or lateralizing deficits. Results Lab Results Labs: Laboratory Last Values Corrected WBC 8.6 X10E3/uL (4.1-10.5) 02/10/22 06:25 Uncorrected WBC Count 8.6 x10E3/uL (4.5-11.0) 02/10/22 06:25 RBC 3.09 x10E6/uL (3.90-5.60) L 02/10/22 06:25 Hgb 10.1 g/dL (13.0-17.0) L 02/10/22 06:25 Hct 30.1 % (38.8-50.0) L 02/10/22 06:25 MCV 97.5 fl (83.5-101) 02/10/22 06:25 MCH 32.6 pg (27.5-35.2) 02/10/22 06:25 MCHC 33.4 g/dL (32.5-35.6) 02/10/22 06:25 RDW 13.5 % (12.0-14.8) 02/10/22 06:25 Plt Count 146 x10E3/uL (150-450) L 02/10/22 06:25 MPV 9.4 fl (6.6-10.1) 02/10/22 06:25 Neut % (Auto) 78.9 % (.) 02/10/22 06:25 Lymph % (Auto) 8.5 % (.) 02/10/22 06:25 [place] % (Auto) 9.3 % (.) 02/10/22 06:25 Eos % (Auto) 2.8 % (.) 02/10/22 06:25 Baso % (Auto) 0.5 % (.) 02/10/22 06:25 Neut # (Auto) 6.8 x10E3/uL (1.8-7.7) 02/10/22 06:25 Lymph # (Auto) 0.7 x10E3/uL (1.00-4.8) L 02/10/22 06:25 [place] # (Auto) 0.8 x10E3/uL (0.0-0.8) 02/10/22 06:25 Eos # (Auto) 0.2 x10E3/uL (0.0-0.45) 02/10/22 06:25 Baso # (Auto) 0.0 x10E3/uL (0.0-0.2) 02/10/22 06:25 Nucleated RBC % (auto) 0.0 % (0-0.5) 02/10/22 06:25 PT 11.7 Seconds (9.0-12.9) 02/10/22 06:25 INR 1.0 02/10/22 06:25 APTT 30.6 Seconds (25.1-36.5) 02/10/22 06:25 PHA Creatinine Clear 23.95 02/10/22 06:25 Sodium 136 mmol/L (136-146) 02/10/22 06:25 Potassium 4.2 mmol/L (3.5-5.1) 02/10/22 06:25 Chloride 107 mmol/L (95-114) 02/10/22 06:25 Carbon Dioxide 18.4 mmol/L (22.0-30.0) L 02/10/22 06:25 BUN 28 mg/dL (9-23) H 02/10/22 06:25 Creatinine 2.93 mg/dL (0.64-1.27) H 02/10/22 06:25 Est GFR ( Amer) 25 mL/Min 02/10/22 06:25 Est GFR (Non-Af Amer) 21 mL/Min 02/10/22 06:25 Glucose 109 mg/dL (70-100) H 02/10/22 06:25 Calcium 8.6 mg/dL (8.2-10.2) 02/10/22 06:25 Total Bilirubin 1.0 mg/dL (0.3-1.2) 02/10/22 06:25 AST 16 U/L (10-42) 02/10/22 06:25 ALT 12 U/L (10-60) 02/10/22 06:25 Alkaline Phosphatase 64 U/L (32-92) 02/10/22 06:25 Troponin I High Sens 17 pg/mL (0-20) 02/10/22 06:25 B-Natriuretic Peptide 494.0 pg/mL (5-100) H 02/10/22 06:25 Total Protein 5.8 gm/dL (6.1-7.9) L 02/10/22 06:25 Albumin 3.5 gm/dL (3.2-5.5) 02/10/22 06:25 Globulin 2.3 gm/dL 02/10/22 06:25 Albumin/Globulin Ratio 1.5 02/10/22 06:25 SARS Antigen (LFIA) Negative (Negative) 02/10/22 06:25 SARS-CoV-2 Rap RNA(RT-PCR) Negative (Negative) 02/10/22 06:25 Microbiology Results Micro: Microbiology - Results from entire visit 02/10/22 06:25 Nasopharyngeal SARS-CoV-2, Influenza & RSV (PCR) - Final 02/10/22 06:25 Nasal SARS Antigen (LFIA) - Final A&P - Hospitalist Assessment/Plan (1) Acute coronary syndrome: (2) Chest pain: (3) Chronic kidney disease (CKD): (4) Coronary artery disease: (5) Diabetes mellitus, type 2: (6) GERD (gastroesophageal reflux disease): (7) Hyperlipidemia: (8) Hypertension: (9) Peripheral vascular disease: Plan Assessment: Presentation with sudden chest pain and not on STEMI EKG changes concerning for acute coronary syndrome in a patient with a history of coronary artery bypass grafting and stenting with known occlusions and severe coronary artery disease. Chronic kidney disease likely stage IV which seems to be rapidly progressive recently. From arterial disease with symptomatic claudication and reports of a left lower extremity arterial stent in the past. Diabetes mellitus type 2, hypertension, hyperlipidemia by history. Plan: Hospital admission, inpatient status. Heparin drip along the ACS protocol. Consult cardiology. N.p.o. after midnight for cardiac catheterization. Consult to nephrology given rising creatinine. Diabetes mellitus type 2 control with sliding scale insulin level 1. Check hemoglobin A1c. Continue home medications, but the list needs to be updated. Hold lisinopril. Avoid any nephrotoxic medications. Documented By: Frantz Weinstein DO [id number] Signed By: <Electronically signed by Frantz Weinstein DO> 02/10/22 [address] [facility] Work Phone: [phone] [phone] Evaluation note* Encounter Date Diagnosis Assessment Notes Treatment Notes Treatment Clinical Notes Jan, Peripheral vascular disease, unspecified (ICD-10 - I73.9) Jan, Other specified postprocedural states (ICD-10 - Z98.890) Jan, Other Peripheral vascular disease I talk with Mr. Norman about his options. For now our plan will be to restart his Pletal and reassess him in a couple of months. If this makes his distance is acceptable we will hold off on any intervention. If he continues to have difficulty we will go ahead with treatment of the distal popliteal lesion in his left leg. He is in agreement that plan and I will see him back in 2 months. [facility] Other 06-20-2022 Evaluation note* Encounter Date Diagnosis Assessment Notes Treatment Notes Treatment Clinical Notes Dec, Peripheral vascular disease, unspecified (ICD-10 - I73.9) Dec, Other specified postprocedural states (ICD-10 - Z98.890) Dec, Other [Peripheral arterial occlusive disease He is having difficulty doing his activities of daily living and is progressively debilitated. His daughter is concerned particularly with the recent episodes that he was unable to get back from his garden. We discussed his chronic renal insufficiency and risks with angiography. We will proceed with CO2 angiography and perhaps minimal contrast to least devise a plan of potential intervention. They understand and agree with that plan [facility] Other 02-08-2022 Evaluation note* Encounter Date Diagnosis Assessment Notes Treatment Notes Treatment Clinical Notes Aug, PAD (peripheral artery disease) (ICD-10 - I73.9) This patient definitely has significant bilateral lower extremity PVD. He is currently asymptomatic with no symptoms of claudication and no ischemic rest pain or tissue loss. He is on good medical therapy with use of high intensity statin, plavix, and aspirin medications daily. He has had previous bilateral SFA atherectomy years ago at [facility]. He is not interested in having any further diagnostic angiogram or further intervention at this point. Again, his PAD does not interfere with his daily activities, he is able to walk as far as he wants, and he does not see the need for any intervention or further work-up. Therefore, we will continue to keep a close eye on him and see him again in a couple of months with new studies. He agrees to call us in the meantime if he were to develop any new symptoms or issues. He and his daughter state understanding of all discussion today, agree with this plan, and denies any additional questions. [facility] Other Chief complaint Narrative - Reported* J LINH is being seen for a cardiovascular evaluation. * Apolinar NORMAN is being seen for DISCUSS SYMPTOMS AND CANCELING CATH. RENAL SUFFICIENCY. * 81-year-old gentleman who returns at the request of Dr. Murdock to further interventional assessment regarding known coronary disease, restenotic vein graft and a denovo right coronary lesions that were discovered on heart catheterization this past Fall. We did not intervene at the time due to chron ic renal insufficiency with a serum creatinine of 2.57. The patient followed up with Dr. Murdock aswell as with nurse practitioner with progressive lower extremity claudication symptomatology. * Patient has no anginal complaints at this time he does have ventricular arrhythmias that are noted and has an AICD and remains on amiodarone * Patient has a history of previous CABG, stenting of a vein graft. * In preparation for possible coronary intervention he underwent repeat laboratory assessment now revealing worsening renal function with serum creatinine of 2.72. * Patient had CO2 lower extremity angiography with Dr. 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 * Patient is a follow-up with Dr. Cisneros next week and I suspect we will likely proceed with percutaneous lower extremity revascularization. * As the patient has no angina at this time, and overall worsening renal insufficiency I am very hesitant to proceed with coronary or vein graft revascularization at least at this time. * In the interim, will discontinue lisinopril, increase his amlodipine to 10 mg with follow-up renal profile and nurse practitioner office visit, and then follow-up with Dr. Murdock as previously scheduled. We will be available for coronary intervention if patient has progressive anginal complaints, or progressive arrhythmias; however at the risk of possibly worsening renal insufficiency if we proceed with angiography. All the above was discussed with him and his daughter. -[facility]-Bob [employer] DO Work Phone: Chiqf complaint Narrative - Reported* Apolinar NORMAN is being seen for a cardiovascular evaluation. * Apolinar NORMAN is being seen for DISCUSS SYMPTOMS AND CANCELING CATH. RENAL SUFFICIENCY. * 81-year-old gentleman who returns at the request of Dr. Murdock to further interventional assessment regarding known coronary disease, restenotic vein graft and a denovo right coronary lesions that were discovered on heart catheterization this past Fall. We did not intervene at the time due to chron ic renal insufficiency with a serum creatinine of 2.57. The patient followed up with Dr. Mathieu mercer as with nurse practitioner with progressive lower extremity claudication symptomatology. * Patient has no anginal complaints at this time he does have ventricular arrhythmias that are noted and has an AICD and remains on amiodarone * Patient has a history of previous CABG, stenting of a vein graft. * In preparation for possible coronary intervention he underwent repeat laboratory assessment now revealing worsening renal function with serum creatinine of 2.72. * Patient had CO2 lower extremity angiography with Dr. 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 * Patient is a follow-up with Dr. Cisneros next week and I suspect we will likely proceed with percutaneous lower extremity revascularization. * As the patient has no angina at this time, and overall worsening renal insufficiency I am very hesitant to proceed with coronary or vein graft revascularization at least at this time. * In the interim, will discontinue lisinopril, increase his amlodipine to 10 mg with follow-up renal profile and nurse practitioner office visit, and then follow-up with Dr. Murdock as previously scheduled. We will be available for coronary intervention if patient has progressive anginal complaints, or progressive arrhythmias; however at the risk of possibly worsening renal insufficiency if we proceed with angiography. All the above was discussed with him and his daughter. [facility] Work Phone: Chief complaint Narrative - Reported* Apolinar NORMAN is being seen for a cardiovascular evaluation. * Apolinar NORMAN is being seen for DISCUSS SYMPTOMS AND CANCELING CATH. RENAL SUFFICIENCY. * 81-year-old gentleman who returns at the request of Dr. Murdock to further interventional assessment regarding known coronary disease, restenotic vein graft and a denovo right coronary lesions that were discovered on heart catheterization this past Fall. We did not intervene at the time due to chron ic renal insufficiency with a serum creatinine of 2.57. The patient followed up with Dr. Mathieu mercer as with nurse practitioner with progressive lower extremity claudication symptomatology. * Patient has no anginal complaints at this time he does have ventricular arrhythmias that are noted and has an AICD and remains on amiodarone * Patient has a history of previous CABG, stenting of a vein graft. * In preparation for possible coronary intervention he underwent repeat laboratory assessment now revealing worsening renal function with serum creatinine of 2.72. * Patient had CO2 lower extremity angiography with Dr. 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 * Patient is a follow-up with Dr. Cisneros next week and I suspect we will likely proceed with percutaneous lower extremity revascularization. * As the patient has no angina at this time, and overall worsening renal insufficiency I am very hesitant to proceed with coronary or vein graft revascularization at least at this time. * In the interim, will discontinue lisinopril, increase his amlodipine to 10 mg with follow-up renal profile and nurse practitioner office visit, and then follow-up with Dr. Murdock as previously scheduled. We will be available for coronary intervention if patient has progressive anginal complaints, or progressive arrhythmias; however at the risk of possibly worsening renal insufficiency if we proceed with angiography. All the above was discussed with him and his daughter. [facility] Work Phone: Chief complaint Narrative - Reported* Apolinar NORMAN is being seen for a cardiovascular evaluation. * Apolinar NORMAN is being seen for DISCUSS SYMPTOMS AND CANCELING CATH. RENAL SUFFICIENCY. * 81-year-old gentleman who returns at the request of Dr. Murdock to further interventional assessment regarding known coronary disease, restenotic vein graft and a denovo right coronary lesions that were discovered on heart catheterization this past Fall. We did not intervene at the time due to chron ic renal insufficiency with a serum creatinine of 2.57. The patient followed up with Dr. Murdock aswell as with nurse practitioner with progressive lower extremity claudication symptomatology. * Patient has no anginal complaints at this time he does have ventricular arrhythmias that are noted and has an AICD and remains on amiodarone * Patient has a history of previous CABG, stenting of a vein graft. * In preparation for possible coronary intervention he underwent repeat laboratory assessment now revealing worsening renal function with serum creatinine of 2.72. * Patient had CO2 lower extremity angiography with Dr. 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 * Patient is a follow-up with Dr. Cisneros next week and I suspect we will likely proceed with percutaneous lower extremity revascularization. * As the patient has no angina at this time, and overall worsening renal insufficiency I am very hesitant to proceed with coronary or vein graft revascularization at least at this time. * In the interim, will discontinue lisinopril, increase his amlodipine to 10 mg with follow-up renal profile and nurse practitioner office visit, and then follow-up with Dr. Murdock as previously scheduled. We will be available for coronary intervention if patient has progressive anginal complaints, or progressive arrhythmias; however at the risk of possibly worsening renal insufficiency if we proceed with angiography. All the above was discussed with him and his daughter. [facility] Work Phone: Discharge summary Author Mere Nelson [facility] February 15, 2022 2:48pm Note Date/Time February 15, 2022 2:4 8pm [facility] [address] [place] [address] Discharge Summary Signed Patient: Apolinar Norman MR#: [id number] 56 : 1940 Acct:[id number] Age/Sex: 82 / M Adm Date: 2 Loc: Room: [address] [place] [address]: Mere Nelson MD Copies to: MD Mere Figueroa II, MD~ Providers Date of Admission: 02/10/22 Date of Discharge: 02/15/22 Discharging Provider: Mere Nelson Primary Care Provider: Justo Cameron Consults: 02/10/22 10:40 Consult to Cardiology Routine Consult to Nephrology Routine Discharge Diagnosis (1) Coronary artery disease: (2) Chest pain: (3) CHF (congestive heart failure): (4) Acute coronary syndrome: (5) Acute respiratory failure with hypoxia: (6) Acute on chronic diastolic heart failure: (7) Acute kidney injury: (8) Diabetes mellitus, type 2: (9) Peripheral vascular disease: Final Diagnosis Final Discharge Diagnosis: As above Summary Hospital Course Hospital course: Patient is an 82-year-old man who presented to the ED with severe crushing chestpain. Patient's symptoms were concerning for acute coronary syndrome due to patient history of coronary artery bypass grafting and stenting with known occlusions and severe coronary artery disease. Patient was admitted and consulted for cardiology and nephrology due to rising creatinine. Patient had renal ultrasound, showing no hydronephrosis. Patient also had chest x-ray showing interstitial prominence suggesting pulmonary edema, with minimal right basilar pleural reaction. Heparin drip was started along ACS protocol. PCI was scheduled depending on creatinine levels, however creatinine continued to increase over the course of his stay until a slight decrease on day of discharge. A Luna catheter was placed to measure output accurately. His weight continued to decrease since admission due to diuretics, and he continued to require supplemental oxygen. A CT of the chest without contrast was obtained that showed interstitial thickening and groundglass density in the posterior upper and both lower lobes. A limited echo was obtained showing ejection fraction of 55 to 60%. There was also mild concentric left ventricular hypertrophy, moderate pulmonary hypertension, and severely dilated left atrium, however there is no prior echocardiogram to compare. Patient refused a BiPAP mask and was placed on Ventimask. Patient was started on IV steroid and doxycycline for COPD exasperation and to cover atypical pneumonia. He was unableto provide sputum sample. Per nephrology there was acute kidney injury likely from cardiorenal syndrome, and that with IV contrast exposure he may lead to dialysis. Per cardiology there was no PCI done due to high creatinine and risk of acceleration of his renal failure to end-stage renal disease with dialysis. Patient expressed that he would like to be discharged. He was on room air prior to discharge and completed walk study. Patient to continue medical therapy with a conservative approach. Will recommend repeating chest x-ray in 4 weeks and consider outpatient pulmonary evaluation including pulmonary function test. He will require outpatient follow-up with nephrology and cardiology. Patient did not qualify for oxygen on walk study. Discussed in detail with patient and his 2 daughters present at bedside. Cilostazol has been discontinued due to contraindication and heart failure. Amlodipine has been placed on hold to prevent hypotension. Dose of beta-gavi has been increased which patient has tolerated well. Consider SGLT2 inhibitor/GLP-1 agonist for diabetic control with history of peripheral vascular disease/coronary artery disease. Condition Condition at Discharge: Stable Status at Discharge Functional status at discharge: independent ambulation Overall status at discharge: patient is back to baseline Time Spent with Patient Time spent providing/coordinating discharge services (# min): 40 Surgeries and Procedures Operation Date: 02/13/22 13:15 <No data on this case meets the specified criteria> Discharge Plan Discharge Plan Patient Disposition: Home Activity: Ambulate as Tolerated Diet: Diabetic, Low-Sodium and Low-Cholesterol Prescriptions: New metoprolol succinate 100 mg Tablet Extended Release 24 Hr 100 mg PO DAILY 30 Days Qty: 30 0RF doxycycline hyclate 100 mg Tablet 100 mg PO BID 2 Days Qty: 4 0RF albuterol sulfate 90 mcg/actuation HFA aerosol inhaler 1 inh inhalation Q4-6H PRN (Reason: shortness of breath or wheezing) Qty: 6.70RF prednisone 20 mg tablet 20 mg PO DAILY 9 Days Qty: 9 0RF Rx Instructions: 40mg daily for 3 days then 20mg daily for 3 days then 10mg daily for 3 days Continued isosorbide mononitrate 30 mg tablet extended release 24 hr 30 mg PO DAILY atorvastatin 80 mg Tablet 80 mg PO DAILY clopidogrel 75 mg Tablet 75 mg PO DAILY aspirin 81 mg Tablet,Delayed Release (Dr/Ec) 81 mg PO DAILY levothyroxine 100 mcg Tablet 100 mcg PO DAILY dicyclomine 20 mg Tablet 20 mg PO BID glyburide 1.25 mg Tablet 1.25 mg PO DAILY ascorbic acid (vitamin C) [Vitamin C] 500 mg Tablet 100 mg PO DAILY amiodarone 200 mg Tablet 200 mg PO DAILY omeprazole [Prilosec] 40 mg Capsule,Delayed Release(Dr/Ec) 40 mg PO DAILY Held amlodipine 5 mg Tablet 10 mg PO DAILY Hold Instructions: until seen by nephrology Discontinued metoprolol succinate 25 mg Tablet Extended Release 24 Hr 25 mg PO DAILY cilostazol 100 mg Tablet 100 mg PO BID diphenhydramine HCl [Benadryl] 25 mg Capsule 25 mg PO BID Other Ambulatory Orders: Basic Metabolic Panel (Routine) Timeframe: 5 Days Location: Determined by Patient Ordered By: Mere Nelson XR chest 2V* (Routine) Timeframe: 4 Weeks Location: Determined by Patient Ordered By: Mere Nelson Follow Up: Justo Cameron II, MD [Primary Care Provider] - 02/25/22 2:30 pm (You have been scheduled for a follow up appointment for the following date and time, please call to reschedule if needed.) Diagnostic Studies Completed and Pending Studies Pending studies at discharge: 02/12/22 18:49 Sputum Culture Routine Labs on day of discharge: 02/15/22 07:43: POC Glucose 225 02/15/22 05:13: PHA Creatinine Clear 19.33, Sodium 138, Potassium 3.7, Chloride 105, Carbon Dioxide 21.4 L, BUN 62 H, Creatinine 3.29 H, Est GFR ( Amer) 22, Est GFR (Non-Af Amer) 18, Glucose 198 H, Calcium 8.8 02/14/22 21:07: POC Glucose 205 02/14/22 16:53: POC Glucose 201, POC Glucose Comment Glu2: cleaned meter 02/14/22 11:12: POC Glucose 283, POC Glucose Comment Glu2: cleaned meter Exam Physical Exam Vital Signs: Temp Pulse Resp BP Pulse Ox O2 Del Method O2 Flow Rate 97.3 F L 70 20 147/61 H 99 Nasal Cannula 2 02/15/22 07:42 02/15/22 09:02 02/15/22 09:02 02/15/22 07:42 02/15/22 09:10 02/15/22 09:10 02/15/22 09:10 FiO2 55 02/15/22 00:20 Narrative: Gen: Pleasant, patient in no acute distress Neuro: awake and alert CV: RRR no murmurs, gallops, or rubs Pulm: CTA b/l no wheezes, crackles, or rhonchi Documented By: Mere Nelson MD 02/15/22 1124 Signed By: <Electronically signed by Mere Nelson MD> 02/15/22 1442 [facility] Work Phone: Evaluation noteNo assessment information available [facility] Work Phone: Evaluation noteNo InformationNort [employer] Other Evaluation note* Diagnosis Onset Date Resolution Status Acute coronary syndrome acut e Acute kidney injury acute Acute on chronic diastolic heart failure acute Acute respiratory failure with hypoxia acute Chest pain acute CHF (congestive heart failure) acute Chronic kidney disease (CKD) acute Coronary artery disease acut e Diabetes mellitus, type 2 [place] GERD (gastroesophageal reflux disease) acute Hyperlipidemia acute Hypertension acute Hypoxia acute Peripheral vascular disease acute [facility] Work Phone: Evaluation noteCoyote [employer] Other Evaluation note* Diagnosis Routine general medical examination at health care facility- Primary Routine general medical examination at a health care facility ACP (advance care planning) Other specified counseling Type 2 diabetes mellitus with stage 4 chronic kidney disease, without long-term current use of insulin ([facility]/HCC) Chronic kidney disease, stage 4 (severe) (N18.4) Peripheral vascular disease, unspecified (I73.9) Peripheral vascular disease, unspecified 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) Atherosclerosis of aorta (I70.0) Atherosclerosis of aorta Gastroesophageal reflux disease, unspecified whether esophagitis present Acquired hypothyroidism ([facility]) Unspecified hypothyroidism [facility] Diagnosis Onset Date Resolution Status Chronic kidney disease, stage IV (severe) acute [facility] Work Phone: Evaluation note* Diagnosis 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- Primary Dizziness Dizziness and giddiness Arrhythmia, ventricular Unspecified cardiac dysrhythmia High risk medication use Mixed hyperlipidemia Orthostatic hypotension BMI 36.0-36.9,adult Type 2 diabetes mellitus with diabetic nephropathy, without long-term current use of insulin ([facility]/HCC) Stage 4 chronic kidney disease ([facility]/HCC) Cardiac pacemaker in situ Echocardiogram abnormal Nonspecific (abnormal) findings on radiological and other examination of other intrathoracic organs documented in this encounter [facility] Work Phone: Evaluation note* Diagnosis Onset Date Resolution Status AV fistula stenosis acute Chronic kidney disease (CKD) acute Peripheral artery disease [place] [facility] Work Phone: Evaluation note* Diagnosis Onset Date Resolution Status AV fistula stenosis acute Chronic kidney disease (CKD) acute Peripheral artery disease [place] AV fistula acute Chronic kidney disease (CKD) acute PAD (peripheral artery disease) [facility] Work Phone: Evaluation note* Diagnosis Onset Date Resolution Status AV fistula acute Chronic kidney disease (CKD) acute PAD (peripheral artery disease) acute Chronic kidney disease, stage IV (severe) acute Closed displaced fracture of left femoral neck acute Coronary artery disease acut e Diabetes mellitus, type 2 [place] Hyperlipidemia acute Hypertension acute Impaired mobility and activities of daily living acute Left hip pain acute Peripheral artery disease [place] Peripheral vascular disease acute Post-operative pain acute [facility] Work Phone: Evaluation note* Diagnosis Onset Date Resolution Status Chronic kidney disease, stage IV (severe) acute Closed displaced fracture of left femoral neck acute Coronary artery disease acut e Diabetes mellitus, type 2 [place] Hyperlipidemia acute Hypertension acute Impaired mobility and activities of daily living acute Left hip pain acute Peripheral artery disease [place] Post-operative pain acute [facility] Work Phone: Evaluation note* Diagnosis Diabetes mellitus due to underlying condition with diabetic polyneuropathy, with long-term current use of insulin ([facility])- Primary Venous insufficiency Unspecified venous (peripheral) insufficiency Pain due to onychomycosis of toenails of both feet documented in this encounter [facility]* Diagnosis 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- Primary Dizziness Dizziness and giddiness Arrhythmia, ventricular Unspecified cardiac dysrhythmia High risk medication use Mixed hyperlipidemia Orthostatic hypotension BMI 36.0-36.9,adult Type 2 diabetes mellitus with diabetic nephropathy, without long-term current use of insulin Stage 4 chronic kidney disease (Multi) Cardiac pacemaker in situ Echocardiogram abnormal Nonspecific (abnormal) findings on radiological and other examination of other intrathoracic organs Dizziness Dizziness and giddiness 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 S/P CABG (coronary artery bypass graft) Postsurgical aortocoronary bypass status History of PTCA Postsurgical percutaneous transluminal coronary angioplasty status Essential hypertension Unspecified essential hypertension Mixed hyperlipidemia Sinus bradycardia Other specified cardiac dysrhythmias Cardiac pacemaker in situ Arrhythmia, ventricular Unspecified cardiac dysrhythmia High risk medication use Type 2 diabetes mellitus with diabetic nephropathy, without long-term current use of insulin Stage 4 chronic kidney disease (Multi) PVD (peripheral vascular disease) ([facility]) Unspecified peripheral vascular disease BMI 26.0-26.9,adult Former smoker Personal history of tobacco use, presenting hazards to health documented in this encounter [facility] Work Phone: Evaluation note* Diagnosis Onset Date Resolution Status Chronic kidney disease, stage IV (severe) acute Closed displaced fracture of left femoral neck acute Coronary artery disease acut e Diabetes mellitus, type 2 [place] Hyperlipidemia acute Hypertension acute Impaired mobility and activities of daily living acute Left hip pain acute Peripheral artery disease [place] Post-operative pain acute Chronic kidney disease, stage 5 acute [facility] Work Phone: Evaluation note* Diagnosis Onset Date Resolution Status Chronic kidney disease, stage IV (severe) acute Closed displaced fracture of left femoral neck acute Coronary artery disease acut e Diabetes mellitus, type 2 [place] Hyperlipidemia acute Hypertension acute Impaired mobility and activities of daily living acute Left hip pain acute Peripheral artery disease [place] Post-operative pain acute Chronic kidney disease, stage 5 acute 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 CHF (congestive heart failure) acute Chronic kidney disease, stage IV (severe) acute Diabetic nephropathy associa mario with type 2 diabetes mellitus acute Hyperparathyroidism acute Hypertensive nephropathy acu te Hyperuricemia acute H/O fracture of left hip non eactive [facility] Work Phone: Evaluation note* Diagnosis Other rosacea- Primary Actinic keratosis EIC (epidermal inclusion cyst) Sebaceous cyst Lentigines documented in this encounter [facility]* Diagnosis Diabetes mellitus due to underlying condition with diabetic polyneuropathy, with long-term current use of insulin ([facility])- Primary Pain due to onychomycosis of toenails of both feet Venous insufficiency Unspecified venous (peripheral) insufficiency documented in this encounter [facility]* Diagnosis Acute cystitis without hematuria- Primary Diabetic nephropathy associated with type 2 diabetes mellitus (HCC) (CMS/HCC) Chronic obstructive pulmonary disease, unspecified (CMS/HCC) documented in this encounter [facility]* Diagnosis Vertigo- Primary Dizziness and giddiness Diabetic nephropathy associated with type 2 diabetes mellitus (HCC) (CMS/HCC) Chronic hip pain, left 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 Chronic obstructive pulmonary disease, unspecified (CMS/HCC) Type 2 diabetes mellitus with diabetic chronic kidney disease (CMS/HCC) Chronic kidney disease, stage 4 (severe) (CMS/HCC) Type 2 diabetes mellitus with diabetic peripheral angiopathy without gangrene (CMS/HCC) Chronic diastolic congestive heart failure (CMS/HCC) documented in this encounter [facility]* Diagnosis Vertigo- Primary Dizziness and giddiness documented in this encounter [facility]* Diagnosis Skin fissure- Primary Other specified disorder of skin Diabetes mellitus due to underlying condition with diabetic polyneuropathy, with long-term current use of insulin ([facility]) Pain due to onychomycosis of toenails of both feet Venous insufficiency Unspecified venous (peripheral) insufficiency documented in this encounter [facility]* Diagnosis Skin fissure- Primary Other specified disorder of skin Diabetes mellitus due to underlying condition with diabetic polyneuropathy, with long-term current use of insulin ([facility]) Pain due to onychomycosis of toenails of both feet Venous insufficiency Unspecified venous (peripheral) insufficiency documented in this encounter [facility]* Diagnosis Routine general medical examination at health care facility- Primary Routine general medical examination at a health care facility ACP (advance care planning) Other specified counseling Type 2 diabetes mellitus with stage 4 chronic kidney disease, without long-term current use of insulin ([facility]) Chronic kidney disease, stage 4 (severe) ([facility]) Weight loss Loss of weight 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 Mixed hyperlipidemia ([facility]) Mixed hyperlipidemia Acquired hypothyroidism ([facility]) Unspecified hypothyroidism Primary insomnia Persistent disorder of initiating or maintaining sleep documented in this encounter [facility] Healthcare[facility] general Narrative - Reported* Type Description Date Medical History High cholesterol Medical History Hypertension Medical History High Blood Sugar Medical History Heart stent Medical History Heart Attack Medical History Triple bypass Medical History Pacemaker Medical History Stents in bilateral legs Medical History PVD Surgical History Triple bypass 1992 Surgical History Heart stent 2017 Surgical History Pace maker 2019 Hospitalization History see medical hx [facility] Other Hisiam[facility] general Narrative - Reported* Type Description Date Medical History High cholesterol Medical History Hypertension Medical History High Blood Sugar Medical History Heart stent Medical History Heart Attack Medical History Triple bypass Medical History Pacemaker Medical History Stents in bilateral legs Medical History PVD Medical History CORONARY ARTERY DISEASE Medical History CHEST PAIN Medical History CONGESTIVE HEART FAILURE Medical History ACUTE KIDNEY INJURY Medical History PERIPHERAL VASCULAR DISEASE Surgical History Triple bypass 1992 Surgical History Heart stent 2017 Surgical History Pace maker 2019 Hospitalization History see medical hx Hospitalization History CHRONIC KIDNEY D ISEASE, ACUTE CORONARY SYNDROME, CHF, HYPERTENSION, ACUTE KIDNEY INJURY, HYPOXIA 02/10/2022 [facility] Other History general Narrative - ReportedNort Amulyte Other Hispxsp general Narrative - Reported* Type Description Date Medical History High cholesterol Medical History Hypertension Medical History High Blood Sugar Medical History Heart stent Medical History Heart Attack Medical History Triple bypass Medical History Pacemaker Medical History Stents in bilateral legs Medical History PVD Medical History CORONARY ARTERY DISEASE Medical History CHEST PAIN Medical History CONGESTIVE HEART FAILURE Medical History ACUTE KIDNEY INJURY Medical History PERIPHERAL VASCULAR DISEASE Surgical History Triple bypass 1992 Surgical History Heart stent 2016 Surgical History Pace maker 2018 Surgical History Elbow Surgery 2022 Hospitalization History see medical hx Hospitalization History CHRONIC KIDNEY D ISEASE, ACUTE CORONARY SYNDROME, CHF, HYPERTENSION, ACUTE KIDNEY INJURY, HYPOXIA 02/10/2022 [facility] Other History of Present illness Narrative* The patient states he has been generally doing well since the last visit. Comorbid Illnesses: hypertension and hyperlipidemia. * Symptoms: resolved chest pain at rest, improved exertional chest pain, improved dyspnea, stable fatigue, stable exercise intolerance, denies palpitations, denies edema, denies orthopnea, denies dizziness and denies orthostatic dizziness. * Disease Monitoring: [facility] 250 DO Work Phone: History of Present illness Narrative* The patient states he has been generally doing well since the last visit. Comorbid Illnesses: hypertension and hyperlipidemia. * Symptoms: resolved chest pain at rest, improved exertional chest pain, improved dyspnea, stable fatigue, stable exercise intolerance, denies palpitations, denies edema, denies orthopnea, denies dizziness and denies orthostatic dizziness. * Disease Monitoring: [facility] 600 DO Work Phone: History of Present illness Narrative* Patient returns in follow-up of problems as noted. In the interim he underwent an echocardiogram because of frequent ventricular ectopy and concerns regarding deterioration in ejection fraction. Actually the ejection fraction is normal and there were no significant findings aside for some pulmonaryhypertension. His pacemaker checks will be used to monitor for breakthrough arrhythmias in the future. Presently has no coronary disease symptomatology such as that that preceded his bypass surgery and/or PTCA and because of this we believe he is doing well. Likewise she has no symptoms referable to bradycardia arrhythmias since pacemaker implant. Overall from a cardiac standpoint he is doing well because of this we suggest continued therapy as is we will cut the amiodarone in half now but the ventricular arrhythmia appears to be controlled. * The patient was educated regarding cardiac signs and symptoms watch for and encouraged to call if any angina CHF or arrhythmia symptoms arises. We did touch on the merits of diet exercise and weight loss as well. -[facility]-Bob Aguilera DO Work Phone: Hospital Discharge instructions Additional Instructions DISCHARGE INSTRUCTIONS- TAKING CARE OF YOUR FISTULA OR GRAFT A fistula or graft (both called an access) was created to provide an adequate blood flow for dialysis. Dialysis is a process to clean your blood of waste products and remove fluid. You need to take care of your fistula or graft to keep it working well and to watch for problems such as blood clots or infection. Please wash your access site prior to dialysis and wear clothing to dialysis that allows easy access to your graft or fistula. CARE OF YOUR ACCESS Check your fistula or graft at least every day. It should be buzzing . This is called a thrill and is caused by blood flowing through the fistula or graft. If blood clots form in your access this blood flow is blocked and you will not feel the buzz . Please check with your physician if you cannot Feel the Thrill . PRECAUTIONS: The goal is to avoid activities that might decrease the blood flow or damage your new access. 1. Tell others that you have a fistula or graft. -Do NOT let anyone take your blood pressure or draw blood work in your fistula or graft arm. -Do NOT let anyone put name bands on this arm. 2. Keep it clean. Scratching is off-limits. 3. DO NOT use your fistula or graft as a pillow. DO NOT sleep with your arm under your head. 4. Avoid carrying items like purses and packages on your arm. Use your other arm to carry heavy items. 5. Avoid wearing clothes with tight sleeves or stretch bands at the wrist. DO NOT wear a watch on this arm. 6. If you have access in your leg: -Avoid underwear with tight bands of the legs. -Avoid heavy pressure on the graft leg such as the weight of a child or heavy item pressing on the graft. WATCH FOR INFECTION -At times, a fistula or graft can become infected. Check your fistula or graft at least once a day for infection. SIGNS OF INFECTION ARE: -Redness or warmth in the skin area over the fistula or graft -Swelling and soreness of the skin -A fever of over 100 degrees F -Drainage from fistula or graft site SPECIAL CARE FOR THOSE WITH A FISTULA ONLY -Over time usually in 1-4 months the vein in your arm near the surgery site will enlarge or mature. The bigger the vein becomes, the easier it will be to use for dialysis. -Making a fist or squeezing a rubber ball or hand commodity lead increases the blood flow to your fistula helping it to work better and mature faster. Try squeezing the ball during the commercials while watching TV. As a general guideline exercise can be started in 3 weeks after your fistula is placed. WHEN TO CALL YOUR DOCTOR -If you have signs of infection, consult your physician. -Get to know your fistula or graft. Report any changes in how it sounds, feels, or looks! FOLLOW UP -Call your physician to schedule a post-operative appointment.[facility] Work Phone: Progress note Author W Morteza [facility] February 15, 2022 5:35pm Note Date/Time February 15, 2022 5:3 5pm [facility] [address] [place] [address] Cardiology Progress Note Signed Patient: Apolinar Norman MR#: [id number] 56 : 1940 Acct:[id number] Age/Sex: 82 / M Adm Date: 2 Loc: Room: [address] [place] [address] Type: DIS IN Attending Dr: Mere Nelson MD Copies to: ~ Date of Service: 02/15/2022 Subjective Principal diagnosis: NSTEMI, CHF, PVD, CKD Interval history: Patient is overall greatly improved, off oxygen, serum creatinine is trending down now to 3.23 today. His respiratory hypoxia and failure have resolved. He describes no angina or chest discomfort. Remains on appropriate guideline directed medical therapies we will continue to treat conservatively for the time being until his baseline creatinine returns which previously was around 2.5 at which point in time we may consider intervention of his vein graft and chicken ranch RCA versus continued medical therapy all the above was discussed with him and his family member. Exam Physical Exam Vital Signs: Temp Pulse Resp BP Pulse Ox O2 Del Method O2 Flow Rate 97.3 F L 62 17 135/65 98 Room Air 2 02/15/22 07:42 02/15/22 11:35 02/15/22 11:35 02/15/22 11:35 02/15/22 11:35 02/15/22 11:35 02/15/22 09:10 FiO2 55 02/15/22 00:20 Const General: cooperative, comfortable, no acute distress, disheveled and ill appearing Orientation: alert, awake and oriented x3 HEENT Head: normal to inspection Neck Neck: normal visual inspection Chest Chest palpation & inspection: normal inspection of the chest Resp Effort & Inspection: able to speak in complete sentences and abnormal respiratory pattern Auscultation: bronchovesicular breath sounds and crackles Cardio Palpation: normal PMI Rate: regular rate Rhythm: regular rhythm Heart Sounds: S1 normal and S2 normal GI Palpation: soft Skin General: no rashes or lesions noted Neuro General: patient alert, patient awake and patient oriented x3 Cognition: normal cognition Speech: speech normal Extrem General: no clubbing, cyanosis or edema Objective Labs CBC & Chem 7: 02/14/22 04:41 02/15/22 05:13 Labs: Laboratory Results - last 24 hr 02/14/22 02/15/22 02/15/22 21:07 05:13 07:43 PHA Creatinine Clear 19.33 Sodium 138 Potassium 3.7 Chloride 105 Carbon Dioxide 21.4 L BUN 62 H Creatinine 3.29 H Est GFR ( Amer) 22 Est GFR (Non-Af Amer) 18 Glucose 198 H POC Glucose 205 225 Calcium 8.8 02/15/22 11:12 PHA Creatinine Clear Sodium Potassium Chloride Carbon Dioxide BUN Creatinine Est GFR ( Amer) Est GFR (Non-Af Amer) Glucose POC Glucose 324 Calcium A&P - Cardiology (1) Coronary artery disease: Assessment/Problem Details: Longstanding history of coronary disease with previous surgical intervention andother coronary interventions. Code(s): I25.10 - Atherosclerotic heart disease of chicken [place] coronary artery without angina pectoris Status: Acute (2) Chest pain: Assessment/Problem Details: Chest pain may be angina but on the other hand it could be gastrointestinal. Curiously had no symptoms yesterday with exertion but last night he had symptomsat rest recumbent in bed. Usually if there is rest pain there is ST segment change and/or troponin rise consistent with acute coronary syndrome (plaque rupture). Code(s): R07.9 - Chest pain, unspecified Status: Acute (3) CHF (congestive heart failure): Code(s): I50.9 - Heart failure, unspecified Status: Acute Plan: Agree with nephrology, diuresis (4) Acute coronary syndrome: Assessment/Problem Details: Hold off on PCI until serum creatinine is plateaued or declining Code(s): I24.9 - Acute ischemic heart disease, unspecified Status: Acute Plan Conservative therapy with heparin and his home regimen. Documented By: Emilia Pro DO 02/15/221733 Signed By: <Electronically signed by Emilia Pro DO> 02/15/221734 [facility] Work Phone: Progress note Author Sophia Woo [facility] February 15, 2022 6:01pm Note Date/Time February 15, 2022 6:0 1pm [facility] [address] [place] [address] Nephrology Progress Note Signed Patient: Apolinar Norman MR#: [id number] [birth year] : 1940 Acct:[id number] Age/Sex: 82 / M Adm Date: 2 Loc: Room: [address] [place] [address] Type: DIS IN Attending Dr: Mere Nelson MD Copies to: ~ Date of Service: 02/15/2022 Subjective Subjective Narrative: Mr. Norman is an 82-year-old white gentleman with history of CAD s/p CABG, DM2, PAD and progressive CKD over the last few years. Patient presented to the ER on02/10 with severe crushing chest pain that wake him up from sleep. He had nitroglycerin with no relief so he decided to come to the ER. He had additionalnitroglycerin and aspirin on route with improvement of chest pain. EKG and ED showed ST segment depression. Dr. Pro was contacted from the ER and the patient was started on heparin drip. On arrival, his creatinine was 2.93 mg/dL that higher from creatinine 2.7 on December 2021 and 2.57 on April 2021. The family and the patient did note that he has CKD that seems to be progressing and possibly will need dialysis in the future however never been evaluated by nephrology but he supposed to see 1 soon.. Recently lisinopril was stopped withhope of improvement of renal function. Nephrology was consulted during hospitalstay considering that the patient may need cardiac cath and contrast exposure during hospital stay Patient has DM2 for many years however currently is diet controlled. He has severe peripheral arterial disease with intermittent claudications. He was evaluated by vascular surgery and according to the family he had Co2 angiogram rather than diet because of risk of ALICIA. Is currently on Pletal with no plan ofsurgery at this point. His lab today was reviewed. Patient has mild anemia with hemoglobin of 10.1. INR 1.0. He has mild acidosis with CO2 18.4. Creatinine 2.93 and potassium 4.2. BNP was mildly elevated 494 with albumin 3.5. Initial troponin was only 17 however the second troponin is up to 754. Chest x-ray showed cardiomegaly with mild pulmonary congestion. He has been on chlorthalidone. Patient was tested negative for COVID-19 on admission. He was evaluated by cardiology, Dr. Murdock and is currently on conservative treatment pending the results of cardiac enzymes and serial EKGs. Patient stated that he has no more chest pain. He has shortness of breath on mild exertion. He has generalized fatigability with decreased endurance. No nausea or vomiting. No abdominal pain. No hematemesis or melena. He has no urinary symptoms. No history of kidney stones. Interval history: Patient was seen and examined in his room before discharge today Patient is currently on room air. The cardiology decided not to do cardiac cathtoday and patient going to be discharged Denied ongoing chest pain. Kidney function is better. Remains off diuretics Denied nausea vomiting. Denied diarrhea or abdominal pain. CT chest without contrast shows COPD changes along with interstitial thickening and groundglass changes in both lower and upper lobes Exam Physical Exam Vital Signs: Temp Pulse Resp BP Pulse Ox O2 Del Method O2 Flow Rate 97.3 F L 62 17 135/65 98 Room Air 2 02/15/22 07:42 02/15/22 11:35 02/15/22 11:35 02/15/22 11:35 02/15/22 11:35 02/15/22 11:35 02/15/22 09:10 FiO2 55 02/15/22 00:20 Narrative: General: No acute distress. On V mask at 14 L/min Head :atraumatic normocephalic Eyes: PERRLA. Pale conjunctiva Neck: no JVD no bruit. Heart: S1-S2. RRR Respiratory: There is no crackles by auscultation. There is bilateral rhonchi. No wheezing Abdomen: Soft, positive bowel sounds,no tenderness. Neurology: Awake alert oriented x3. No focal deficits Extremity. No cyanosis. Trace edema of lower extremities Skin: No skin rash Objective Intake and Output I&O: Intake & Output 02/12/22 02/13/22 02/14/22 02/15/22 23:59 23:59 23:59 23:59 Intake Total 1885 / 1885 1020 / 1020 800 / 800 1150 / 1150 Output Total 1700 / 1700 1400 / 1400 1200 / 1200 900 / 900 Balance 185 / 185 -380 / -380 -400 / -400 250 / 250 Weight 91 kg 90 kg 89.6 kg 89.1 kg Meds and Allergies Meds: Allergies levofloxacin Allergy (Verified 02/10/22 06:20) Rash Penicillins Allergy (Verified 02/10/22 06:20) Swelling, rash Results Labs CBC & Chem 7: 02/14/22 04:41 02/15/22 05:13 Labs: 02/15/22 05:13 BUN 62 H Creatinine 3.29 H Radiology Impressions Impressions - last 24 hours: Any impression(s) listed above is documentation that was entered by the reading physician into a diagnostic report(s) for Apolinar oNrman. I have reviewed the report(s) and am incorporating any findings in the treatment plan of this patient where applicable. A&P - Nephrology Assessment/Plan (1) Chronic kidney disease (CKD): Assessment/Problem Details: Patient seems to have progressive CKD in the setting of DM2, HTN and atherosclerotic renovascular disease. Patient has CKD stage IV at baseline. Serum creatinine was 2.5 mg/dL with GFR 24 mL/min in April 2021. UA is benignexcept mild protein. Renal ultrasound shows asymmetric renal sizes with the right kidney measures 15 x 7.5 cm and the left kidney measures 9.4 x 5.6 cm. This is likely related to vascular disease (2) Acute coronary syndrome: Assessment/Problem Details: Patient presented with chest pressure currently with elevated troponin. He treated with heparin drip and nitroglycerin drip for acute coronary syndrome. Cardiology is following. Cardiac cath was aborted due to high creatinine (3) CHF (congestive heart failure): Assessment/Problem Details: Chest x-ray showed cardiomegaly and pulmonary congestion. He has bilateral lower extremity edema 2+. He has shortness of breath on mild exertion. Echocardiogram in February 11 showed ejection fraction 50 to 60%, moderate aortic and mitral valve stenosis with moderate pulmonary hypertension and mild to moderate tricuspid regurgitation. This has improved with diuretics. Currently diuretics and her home (4) Hypertension: Assessment/Problem Details: Blood pressure is better controlled. Edema has improved with diuretics. Currently off Lasix (5) Diabetes mellitus, type 2: Assessment/Problem Details: Patient has history of diabetes mellitus however currently on diet only. Patient stated that he takes diabetes medications however I do not see anything listed in his home medications. Patient is not on insulin with meals (6) Acute kidney injury: Assessment/Problem Details: Acute kidney injury is likely from cardiorenal syndrome. Urinalysis was negative for hematuria. It showed only mild proteinuria. Patient responded well to diuretics with better urine output. Diuretics has been on hold (7) Hypoxia: Assessment/Problem Details: Likely combination of fluid overload and COPD exacerbation. This has improved with diuretics and steroid treatment Plan * Acute kidney injury is likely from cardiorenal syndrome as the patient presented with acute coronary syndrome with CHF * Serum creatinine slightly better with intravascular volume expansion with normal saline. Patient might be over diuresed with Lasix * Serum creatinine 3.2 mg deciliter. Baseline around 2.4 mg deciliter * Okay to discharge patient without diuretics * Patient needs follow-up in my [place] office * Cardiac cath was aborted due to elevated creatinine * Will continue anemia work-up as outpatient. Plan of care was discussed with the primary service attending Dr. Leslie Taylor if any question. Documented By: Sophia Woo MD 02/15/22 0601 Signed By: <Electronically signed by Sophia Woo MD> 02/15/22 6728 [facility] Work Phone: reason for visit Narrative* Rehabilitation - Outpatient (Routine) - Pending Review Specialty Diagnoses / Procedures Referred By Contac t Referred To Contact Physical Therapy Diagnoses Vertigo Procedures GA OFFICE/OUTPATIENT NEW HIGH [facility] 60 MINUTES Justo Cameron MD [address] [address] Phone: tel: fax: Luna Espinal PT Referral ID Status Reason Start Date Expiration Date Visits Requested Visits Authorized [id number] Pending Review Specialty Services Required 07/23/2024 01/17/2025 1 3 [facility] HealthcareReason for visit Narrative* Rehabilitation - Outpatient (Routine) - Authorized Specialty Diagnoses / Procedures Referred By Cole t Referred To Contact Physical Therapy Diagnoses Vertigo Procedures GA OFFICE/OUTPATIENT NEW HIGH MDM 60 MINUTES Justo Cameron MD [address] [address] Phone: tel: fax: Luna Espinal PT Referral ID Status Reason Start Date Expiration Date Visits Requested Visits Authorized [id number] Authorized Specialty Services Required 07/23/2024 09/03/2024 8 8 [facility] Summary Purpose Family History Unknown Family Member Name Dates Details Dialysis patient: Brother Status:Active Family history of abdominal aortic aneurysm (AAA): Father(V17.49, Z82.49) Status:Active Family history of diabetes m ellitus: Father(V18.0, Z83.3) Status:Active Family history of kidney dis ease: Brother(V18.69, Z84.1) Status:Active Gastric polyp: Mother Status:Active Unknown Family Member Name Dates Details Dialysis patient: Brother Status:Active Family history of abdominal aortic aneurysm (AAA): Father(V17.49, Z82.49) Status:Active Family history of diabetes m ellitus: Father(V18.0, Z83.3) Status:Active Family history of kidney dis ease: Brother(V18.69, Z84.1) Status:Active Gastric polyp: Mother Status:Active Relationship Condition Age at Onset Recorded Date/T regina father Renal failure Unknown Congestive heart failure Unknown Diabetes mellitus Unknown Not Specified Diverticulitis Unknown Unknown Family Member Name Dates Details Dialysis patient: Brother Status:Active Family history of abdominal aortic aneurysm (AAA): Father(V17.49, Z82.49) Status:Active Family history of diabetes m ellitus: Father(V18.0, Z83.3) Status:Active Family history of kidney dis ease: Brother(V18.69, Z84.1) Status:Active Gastric polyp: Mother Status:Active Unknown Family Member Name Dates Details Dialysis patient: Brother Status:Active Family history of abdominal aortic aneurysm (AAA): Father(V17.49, Z82.49) Status:Active Family history of diabetes m ellitus: Father(V18.0, Z83.3) Status:Active Family history of kidney dis ease: Brother(V18.69, Z84.1) Status:Active Gastric polyp: Mother Status:Active Unknown Family Member Name Dates Details Dialysis patient: Brother Status:Active Family history of abdominal aortic aneurysm (AAA): Father(V17.49, Z82.49) Status:Active Family history of diabetes m ellitus: Father(V18.0, Z83.3) Status:Active Family history of kidney dis ease: Brother(V18.69, Z84.1) Status:Active Gastric polyp: Mother Status:Active Unknown Family Member Name Dates Details Dialysis patient: Brother Status:Active Family history of abdominal aortic aneurysm (AAA): Father(V17.49, Z82.49) Status:Active Family history of diabetes m ellitus: Father(V18.0, Z83.3) Status:Active Family history of kidney dis ease: Brother(V18.69, Z84.1) Status:Active Gastric polyp: Mother Status:Active Unknown Family Member Name Dates Details Dialysis patient: Brother Status:Active Family history of abdominal aortic aneurysm (AAA): Father(V17.49, Z82.49) Status:Active Family history of diabetes m ellitus: Father(V18.0, Z83.3) Status:Active Family history of kidney dis ease: Brother(V18.69, Z84.1) Status:Active Gastric polyp: Mother Status:Active Unknown Family Member Name Dates Details Dialysis patient: Brother Status:Active Family history of abdominal aortic aneurysm (AAA): Father(V17.49, Z82.49) Status:Active Family history of diabetes m ellitus: Father(V18.0, Z83.3) Status:Active Family history of kidney dis ease: Brother(V18.69, Z84.1) Status:Active Gastric polyp: Mother Status:Active Unknown Family Member Name Dates Details Gastric polyp: Mother Status:Active Family history of kidney dis ease: Brother(V18.69, Z84.1) Status:Active Family history of diabetes m ellitus: Father(V18.0, Z83.3) Status:Active Family history of abdominal aortic aneurysm (AAA): Father(V17.49, Z82.49) Status:Active Dialysis patient: Brother Status:Active Unknown Family Member Name Dates Details Gastric polyp: Mother Status:Active Family history of kidney dis ease: Brother(V18.69, Z84.1) Status:Active Family history of diabetes m ellitus: Father(V18.0, Z83.3) Status:Active Family history of abdominal aortic aneurysm (AAA): Father(V17.49, Z82.49) Status:Active Dialysis patient: Brother Status:Active Unknown Family Member Name Dates Details Gastric polyp: Mother Status:Active Family history of kidney dis ease: Brother(V18.69, Z84.1) Status:Active Family history of diabetes m ellitus: Father(V18.0, Z83.3) Status:Active Family history of abdominal aortic aneurysm (AAA): Father(V17.49, Z82.49) Status:Active Dialysis patient: Brother Status:Active Unknown Family Member Name Dates Details Dialysis patient: Brother Status:Active Family history of abdominal aortic aneurysm (AAA): Father(V17.49, Z82.49) Status:Active Family history of diabetes m ellitus: Father(V18.0, Z83.3) Status:Active Family history of kidney dis ease: Brother(V18.69, Z84.1) Status:Active Gastric polyp: Mother Status:Active Unknown Family Member Name Dates Details Dialysis patient: Brother Status:Active Family history of abdominal aortic aneurysm (AAA): Father(V17.49, Z82.49) Status:Active Family history of diabetes m ellitus: Father(V18.0, Z83.3) Status:Active Family history of kidney dis ease: Brother(V18.69, Z84.1) Status:Active Gastric polyp: Mother Status:Active Unknown Family Member Name Dates Details Dialysis patient: Brother Status:Active Family history of abdominal aortic aneurysm (AAA): Father(V17.49, Z82.49) Status:Active Family history of diabetes m ellitus: Father(V18.0, Z83.3) Status:Active Family history of kidney dis ease: Brother(V18.69, Z84.1) Status:Active Gastric polyp: Mother Status:Active Unknown Family Member Name Dates Details Dialysis patient: Brother Status:Active Family history of abdominal aortic aneurysm (AAA): Father(V17.49, Z82.49) Status:Active Family history of diabetes m ellitus: Father(V18.0, Z83.3) Status:Active Family history of kidney dis ease: Brother(V18.69, Z84.1) Status:Active Gastric polyp: Mother Status:Active Unknown Family Member Name Dates Details Dialysis patient: Brother Status:Active Family history of abdominal aortic aneurysm (AAA): Father(V17.49, Z82.49) Status:Active Family history of diabetes m ellitus: Father(V18.0, Z83.3) Status:Active Family history of kidney dis ease: Brother(V18.69, Z84.1) Status:Active Gastric polyp: Mother Status:Active Unknown Family Member Name Dates Details Dialysis patient: Brother Status:Active Family history of abdominal aortic aneurysm (AAA): Father(V17.49, Z82.49) Status:Active Family history of diabetes m ellitus: Father(V18.0, Z83.3) Status:Active Family history of kidney dis ease: Brother(V18.69, Z84.1) Status:Active Gastric polyp: Mother Status:Active Relationship Condition Age at Onset Recorded Date/T regina father Renal failure Unknown Congestive heart failure Unknown Diabetes mellitus Unknown Not Specified Diverticulitis Unknown brother Malignant neoplasm Unknown Unknown daughter Hypertension Unknown Heart disease Unknown father Unknown Hernia Unknown family member Unknown Not Specified Unknown Relationship Condition Age at Onset Recorded Date/T regina father Diabetes mellitus Unknown Congestive heart failure Unknown Renal failure Unknown Unknown Hernia Unknown Not Specified Diverticulitis Unknown brother Unknown Malignant neoplasm Unknown daughter Heart disease Unknown Hypertension Unknown Diabetes mellitus Unknown family member Unknown daughter Hypertension Unknown Relationship Condition Age at Onset Recorded Date/T regina father Diabetes mellitus Unknown Congestive heart failure Unknown Renal failure Unknown Unknown Hernia Unknown Not Specified Diverticulitis Unknown brother Unknown Malignant neoplasm Unknown daughter Heart disease Unknown Hypertension Unknown Diabetes mellitus Unknown daughter Unknown Motor vehicle accident Unknown Relationship Condition Age at Onset Recorded Date/T regina father Diabetes mellitus Unknown Congestive heart failure Unknown Renal failure Unknown Unknown Hernia Unknown mother Diverticulitis Unknown brother Unknown Malignant neoplasm Unknown daughter Heart disease Unknown Hypertension Unknown Diabetes mellitus Unknown daughter Unknown Motor vehicle accident Unknown Advance Directives Advance Directive Response Recorded Date/ Time Advance Directives No August 10, 2019 5:12pm Advance Directive Response Recorded Date/ Time Advance Directives No August 10, 2019 4:12pm Advance Directive Response Recorded Date/ Time Advance Directives No December 08 4 10:15am Advance Directive Response Recorded Date/ Time Advance Directives No December 08 4 9:15am Chief Complaint * I am doing ok * Apolinar NORMAN is being seen for a 2 week follow-up of coronary artery disease and chest pain. * Patient presents to the office for outpatient follow-up at [facility] re:cardiac cath results. * Patient presents accompanied by daughter * Patient is ambulatory with steady gait * Patient was last evaluated by Dr. Murdock in clinic February 2021. * Patient reports overall state of cardiovascular health as 'doing better with new medications' * Daily activity level: < 4 METs, housework, yardwork * Denies any change in exercise capacity or functional tolerance. * Prior Angina:RS pressure, should pain with exertion * Last NTG use: once since procedure * Symptoms have settle down. * Not waking up in middle of night * Walked in from [place] without concerns * At this time, not interested in proceeding with PCI. * I am doing ok * Apolinar NORMAN is being seen for a 2 week follow-up of coronary artery disease and chest pain. * Patient presents to the office for outpatient follow-up at [facility] re:cardiac cath results. * Patient presents accompanied by daughter * Patient is ambulatory with steady gait * Patient was last evaluated by Dr. Murdock in clinic February 2021. * Patient reports overall state of cardiovascular health as 'doing better with new medications' * Daily activity level: < 4 METs, housework, yardwork * Denies any change in exercise capacity or functional tolerance. * Prior Angina:RS pressure, should pain with exertion * Last NTG use: once since procedure * Symptoms have settle down. * Not waking up in middle of night * Walked in from [place] without concerns * At this time, not interested in proceeding with PCI. Apolinar NORMAN is being seen for a 1 month follow-up of.Amiodarone Order sent to [facility] for testing due in April - pft / tsh onlyAmiodarone Order sent to [facility] for testing due in August 05Amiodarone Order sent to [facility] for testing due in October Chief Complaint and Reason for Visit Chief Complaint sss i70.213 Chief Complaint i70.213 sss Chief Complaint i70.213 sss Coronary Artery Disease PVD Chief Complaint Coronary Artery Dise ase PVD chest pain SSS Reason for Visit Acute coronary syndr ome Acute kidney injury Acute on chronic diastolic heart failure Acute respiratory failure with hypoxia Chest pain CHF (congestive heart failure) Chronic kidney disease (CKD) Coronary artery disease Diabetes mellitus, type 2 GERD (gastroesophageal reflux disease) Hyperlipidemia Hypertension Hypoxia Peripheral vascular disease Chief Complaint Coronary Artery Dise ase PVD Coronary Artery Disease chest pain SSS Reason for Visit Acute coronary syndr ome Acute kidney injury Acute on chronic diastolic heart failure Acute respiratory failure with hypoxia Chest pain CHF (congestive heart failure) Chronic kidney disease (CKD) Coronary artery disease Diabetes mellitus, type 2 GERD (gastroesophageal reflux disease) Hyperlipidemia Hypertension Hypoxia Peripheral vascular disease Chief Complaint chest pain SSS z79.899 i49.9 Reason for Visit Acute coronary syndr ome Acute kidney injury Acute on chronic diastolic heart failure Acute respiratory failure with hypoxia Chest pain CHF (congestive heart failure) Chronic kidney disease (CKD) Coronary artery disease Diabetes mellitus, type 2 GERD (gastroesophageal reflux disease) Hyperlipidemia Hypertension Hypoxia Peripheral vascular disease Chief Complaint z79.899 i49.9 SSS J18.9 Chief Complaint SSS J18.9 SSS Chief Complaint i70.213 Chief Complaint i70.213 SSS Chief Complaint SSS Renal 4 Month Follow Up i49.9 z79.899 n18.4 i49.9 z79.899 Chief Complaint SSS Renal 4 Month Follow Up i49.9 z79.899 n18.4 i49.9 z79.899 NEEDS AV FISTULA; VEIN MAPPING DONE 09/02/23 ESRD ESRD Reason for Visit Chronic kidney disea se, stage IV (severe) Chief Complaint Renal 4 Month Follow Up i49.9 z79.899 n18.4 i49.9 z79.899 NEEDS AV FISTULA; VEIN MAPPING DONE 09/02/23 ESRD ESRD ESRD SSS Reason for Visit Chronic kidney disea se, stage IV (severe) Chief Complaint i49.9 z79.899 n18.4 i49.9 z79.899 NEEDS AV FISTULA; VEIN MAPPING DONE 09/02/23 ESRD ESRD ESRD SSS 4 WK F/U LEFT ARM CIMINIO AV FISTULA CREATION Reason for Visit Chronic kidney disea se, stage IV (severe) Chief Complaint ESRD ESRD ESRD SSS 4 WK F/U LEFT ARM CIMINIO AV FISTULA CREATION ESRD ESRD ESRD ESRD 4 WK S/P FISTULOGRAM LEFT ARM;FIOR'S 9A I73.9 Reason for Visit AV fistula stenosis Chronic kidney disease (CKD) Peripheral artery disease Chief Complaint 4 WK F/U LEFT ARM CI MINIO AV FISTULA CREATION ESRD ESRD ESRD ESRD 4 WK S/P FISTULOGRAM LEFT ARM;FIOR'S 9A I73.9 SSS Reason for Visit AV fistula stenosis Chronic kidney disease (CKD) Peripheral artery disease AV fistula Chronic kidney disease (CKD) PAD (peripheral artery disease) Chief Complaint ESRD ESRD ESRD ESRD 4 WK S/P FISTULOGRAM LEFT ARM;FIOR'S 9A I73.9 SSS LT Hip Fracture LT Hip Fracture LT Hip Fracture Reason for Visit AV fistula Chronic kidney disease (CKD) PAD (peripheral artery disease) Chronic kidney disease, stage IV (severe) Closed displaced fracture of left femoral neck Coronary artery disease Diabetes mellitus, type 2 Hyperlipidemia Hypertension Impaired mobility and activities of daily living Left hip pain Peripheral artery disease Peripheral vascular disease Post-operative pain Chief Complaint SSS LT Hip Fracture LT Hip Fracture LT Hip Fracture Reason for Visit Chronic kidney disea se, stage IV (severe) Closed displaced fracture of left femoral neck Coronary artery disease Diabetes mellitus, type 2 Hyperlipidemia Hypertension Impaired mobility and activities of daily living Left hip pain Peripheral artery disease Post-operative pain Chief Complaint LT Hip Fracture LT Hip Fracture LT Hip Fracture esrd 4 MONTH F/U; GFS LEFT ARM 11AM Reason for Visit Chronic kidney disea se, stage IV (severe) Closed displaced fracture of left femoral neck Coronary artery disease Diabetes mellitus, type 2 Hyperlipidemia Hypertension Impaired mobility and activities of daily living Left hip pain Peripheral artery disease Post-operative pain Chief Complaint LT Hip Fracture LT Hip Fracture LT Hip Fracture esrd 4 MONTH F/U; GFS LEFT ARM 11AM Reason for Visit Chronic kidney disea se, stage IV (severe) Closed displaced fracture of left femoral neck Coronary artery disease Diabetes mellitus, type 2 Hyperlipidemia Hypertension Impaired mobility and activities of daily living Left hip pain Peripheral artery disease Post-operative pain Chronic kidney disease, stage 5 Chief Complaint LT Hip Fracture LT Hip Fracture esrd 4 MONTH F/U; GFS LEFT ARM 11AM Renal f/u Reason for Visit Chronic kidney disea se, stage IV (severe) Closed displaced fracture of left femoral neck Coronary artery disease Diabetes mellitus, type 2 Hyperlipidemia Hypertension Impaired mobility and activities of daily living Left hip pain Peripheral artery disease Post-operative pain Chronic kidney disease, stage 5 Anemia in chronic kidney disease CHF (congestive heart failure) Chronic kidney disease, stage IV (severe) Diabetic nephropathy associated with type 2 diabetes mellitus Hyperparathyroidism Hypertensive nephropathy Hyperuricemia H/O fracture of left hip Chief Complaint Admit Date 4 MONTH F/U; GFS LEFT ARM 11AM April 142023 10:52am Renal f/u May 05, 2024 2 :20pm RENAL 3 month f/u July 28, 2024 9 :53am Reason for Visit Admit Date Chronic kidney disease, stage 5 May 03, 2024 10:52am Anemia in chronic kidney disease May 05, 2024 2:20pm CHF (congestive heart failure) April 142023 2:20pm Chronic kidney disease, stage IV (severe ) May 05, 2024 2:20pm Diabetic nephropathy associa mario with type 2 diabetes mellitus May 05, 2024 2:20pm Hyperparathyroidism May 05, 2024 2 :20pm Hypertensive nephropathy May 05, 2 024 2:20pm Hyperuricemia May 05, 2024 2 :20pm H/O fracture of left hip May 05, 2 024 2:20pm Anemia in chronic kidney disease July 28, 2024 9:53am CHF (congestive heart failure) July 142024 9:53am Chronic kidney disease, stage IV (severe ) July 28, 2024 9:53am Diabetic nephropathy associa mario with type 2 diabetes mellitus July 28, 2024 9:53am Hyperparathyroidism July 28, 2024 9 :53am Hypertensive nephropathy July 28, 2 025 9:53am Hyperuricemia July 28, 2024 9 :53am Chief Complaint Admit Date RENAL 3 month f/u July 28, 2024 9 :53am Renal F/U October 20, 2024 8:18 am Reason for Visit Admit Date Anemia in chronic kidney disease July 28, 2024 9:53am CHF (congestive heart failure) July 142024 9:53am Chronic kidney disease, stage IV (severe ) July 28, 2024 9:53am Diabetic nephropathy associa mario with type 2 diabetes mellitus July 28, 2024 9:53am Hyperparathyroidism July 28, 2024 9 :53am Hypertensive nephropathy July 28, 025 9:53am Hyperuricemia July 28, 2024 9 :53am Anemia in chronic kidney disease October 202024 8:18am CHF (congestive heart failure) October 8:18am Chronic kidney disease, stage IV (severe ) October 20, 2024 8:18am Diabetic nephropathy associa mario with type 2 diabetes mellitus October 20, 2024 8:18am Hyperparathyroidism October 20, 2024 8:18 am Hypertensive nephropathy October 20, 2024 8:18am Hyperuricemia October 20, 2024 8:18 am Chief Complaint Admit Date RENAL 3 month f/u July 28, 2024 9 :53am Renal F/U October 20, 2024 8:18 am I49.9 Z79.899 October 20, 2024 9:15 am I49.9 Z79.899 October 20, 2024 5:19 pm Reason for Referral Specialty Diagnoses / Procedures Referred By Contac t Referred To Contact Diagnoses Arrhythmia, ventricular High risk medication use Procedures Complete Pulmonary Function Test (Spirometry/DLCO/Lung Volumes) Tawanda Pro, [address] [place] [address] 2, [address] [address] Referral ID Status Reason Start Date Expiration Date V isits Requested Visits Authorized [id number] Pending Review 04/22/2024 04/22/2025 1 1 Specialty Diagnoses / Procedures Referred By Contac t Referred To Contact Radiology Diagnoses Arrhythmia, ventricular High risk medication use Procedures XR chest 2 views Tawanda Pro, [address] 2, [address] [address] Referral ID Status Reason Start Date Expiration Date Visits Requested Visits Authorized [id number] Authorized Perform Procedure 04/22/2025 1 1 Specialty Diagnoses / Procedures Referred By Contac t Referred To Contact Diagnoses Arrhythmia, ventricular Procedures ECG 12 Lead Tawanda Pro, [address], [address] [address] Referral ID Status Reason Start Date Expiration Date V isits Requested Visits Authorized [id number] Authorized 04/22/2024 04/22/2025 1 1 Specialty Diagnoses / Procedures Referred By Contac t Referred To Contact Cardiology Diagnoses 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 Procedures Follow Up In Cardiology Tawanda Pro, DO [facility] 2, [address] [address] Tawanda Pro, DO [facility] 2, [place] [phone] Referral ID Status Reason Start Date Expiration Date V isits Requested Visits Authorized [id number] Authorized 04/22/2024 04/22/2025 1 1 Specialty Diagnoses / Procedures Referred By Contac t Referred To Contact Diagnoses High risk medication use Procedures ECG 12 Lead Gagan Yeison K, DIRECTOR INDEPENDENT[employer]ER [facility] 2, [address] [address] Referral ID Status Reason Start Date Expiration Date V isits Requested Visits Authorized [id number] Authorized 10/06/2023 10/05/2024 1 1 Specialty Diagnoses / Procedures Referred By Contac t Referred To Contact Cardiology Diagnoses Dizziness Procedures Follow Up In Cardiology Yeison Farah, DIRECTOR [employer] [facility] 2, [address] [address] Tawanda Pro, [facility] 2, [place] [phone] Referral ID Status Reason Start Date Expiration Date V isits Requested Visits Authorized [id number] Authorized 10/06/2023 10/05/2024 1 1 Additional Source Comments (unrecognized sect ion and content) No Status Records FoundNo Status Records FoundNo Status Records FoundNo Status Records FoundNo Status Records FoundNo Status Records FoundNo Status Records FoundNo Status Records FoundNo Status Records FoundNo Status Records Found INFORMATION SOURCE (unrecogn ized section and content) DATE CREATED AUTHOR 12/31/2017 [facility] DATE CREATED AUTHOR AUTHOR'S LATRICIA ATION 06/21/2021 [facility] DATE CREATED AUTHOR AUTHOR'S ORGANIZ ATION 11/24/2021 [facility] DATE CREATED AUTHOR AUTHOR'S ORGANIZ ATION 03/13/2022 [facility] DATE CREATED AUTHOR AUTHOR'S ORGANIZ ATION 08/14/2022 [facility] DATE CREATED AUTHOR AUTHOR'S ORGANIZ ATION 09/08/2022 [facility] DATE CREATED AUTHOR AUTHOR'S ORGANIZ ATION 01/22/2023 [facility] DATE CREATED AUTHOR AUTHOR'S ORGANIZ ATION 04/24/2024 [facility] DATE CREATED AUTHOR AUTHOR'S ORGANIZ ATION 10/29/2024 [facility] DATE CREATED AUTHOR AUTHOR'S ORGANIZ ATION 12/17/2024 [facility] dical Specialists EPIC Care Teams (unrecognized sec tion and content) Team Status: Active Member Role Status Dates Justo Cameron II MD Primary Care Provider Active Team Status: Inactive Member Role Status Dates Justo Cameron II MD Primary Care Provider Active Hussein Talavera MD Attending Provider Active Team Status: Inactive Member Role Status Dates Justo Cameron II MD Primary Care Provider Active Sameera Jolley NP-C Attending Provider Active Team Status: Inactive Member Role Status Shmuel Cameron II MD Primary Care Provider Active Tawanda Murdock MD Attending Provider Active Team Status: Active Member Role Status Shmuel Cameron II MD Primary Care Provider Active Emilia Pro DO Attending Provider Active Team Status: Inactive Member Role Status Shmuel Cameron II MD Primary Care Provider Active Emilia Pro DO Attending Provider Active Team Status: Inactive Member Role Status Dates Justo Cameron II MD Primary Care Provider Active Andrea Gomez DO Emergency Provider Active Frantz Weinstein DO Admit Provider Active Jonathon Ring MD Other Provider Active Mere Nelson MD Attending Provider Active Team Status: Inactive Member Role Status Dates Justo Cameron II MD Primary Care Provider Active Pita Melgar MD Attending Provider Active Director Business Management Relationship Specialty Start Date End Date Justo Cameron MD [address] [place] [id number] PCP - General Internal Medicine 01/02/23 Director Business Management Relationship Specialty Start Date End Date Justo Cameron MD [address] [place] [id number] PCP - General Internal Medicine 01/02/23 Team Status: Inactive Member Role Status Dates Justo Cameron II MD Primary Care Provider Active Start: July 18, 2023 End: July 18, 2023 Tawanda Murdock MD Attending Provider Active Start: July 18, 2023 End: July 18, 2023 Team Status: Inactive Member Role Status Shmuel Woo MD Attending Provider Active Star t: August 05, 2023 End: August 05, 2023 Team Status: Inactive Member Role Status Shmuel Cameron II MD Primary Care Provider Active Start: September 02, 2023 End: September 02, 2023 Tawanda Murdock MD Attending Provider Active Start: September 02, 2023 End: September 02, 2023 Team Status: Inactive Member Role Status Shmuel Cameron II MD Primary Care Provider Active Start: September 02, 2023 End: September 02, 2023 Sophia Woo MD Attending Provider Active Star t: September 02, 2023 End: September 02, 2023 Team Status: Active Member Role Status Shmuel Cameron II MD Primary Care Provider Active Start: September 02, 2023 Tawanda Murdock MD Other Provider Active Start: September 02, 2023 Chadd Junior MD Attending Provider Active Start: September 02, 2023 Team Status: Inactive Member Role Status Shmuel Cameron II MD Primary Care Provider Active Start: September 09, 2023 End: September 09, 2023 Hussein Talavera MD Attending Provider Active S tart: September 09, 2023 End: September 09, 2023 Team Status: Inactive Member Role Status Shmuel Cameron II MD Primary Care Provider Active Start: September 17, 2023 End: September 17, 2023 Hussein Talavera MD Attending Provider Active S tart: September 17, 2023 End: September 17, 2023 Team Status: Inactive Member Role Status Shmuel Cameron II MD Primary Care Provider Active Start: October 01, 2023 End: October 01, 2023 Hussein Talavera MD Attending Provider Active S tart: October 01, 2023 End: October 01, 2023 Director Business Management Relationship Specialty Start Date End Date Justo Cameron MD [address] [facility] [address] [place] [address] PCP - General 01/16/23 Hussein Talavera MD [address] [place] [address];[address] [place] [address] Referring Physician Vascular Surgery 10/06/23 Team Status: Active Member Role Status Dates Justo Cameron II MD Primary Care Provider Active Start: October 01, 2023 Hussein Talavera MD Attending Provider, Other Provider Active Start: October 01, 2023 Team Status: Inactive Member Role Status Dates Justo Cameron II MD Primary Care Provider Active Start: October 20, 2023 End: October 20, 2023 Tawanda Murdock MD Attending Provider Active Start: October 20, 2023 End: October 20, 2023 Team Status: Inactive Member Role Status Dates Justo Cameron II MD Primary Care Provider Active Start: November 03, 2023 End: November 03, 2023 Hussein Talavera MD Attending Provider Active S tart: November 03, 2023 End: November 03, 2023 Team Status: Inactive Member Role Status Dates Justo Cameron II MD Primary Care Provider Active Start: November 13, 2023 End: November 13, 2023 Hussein Talavera MD Attending Provider Active S tart: November 13, 2023 End: November 13, 2023 Team Status: Active Member Role Status Dates Justo Cameron II MD Primary Care Provider Active Start: November 13, 2023 Hussein Talavera MD Attending Provider, Other Provide r Active Start: November 13, 2023 Team Status: Inactive Member Role Status Shmuel Cameron II MD Primary Care Provider Active Start: November 26, 2023 End: November 26, 2023 Hussein Talavera MD Attending Provider Active S tart: November 26, 2023 End: November 26, 2023 Team Status: Active Member Role Status Shmuel Cameron II MD Primary Care Provider Active Start: November 26, 2023 Hussein Talavera MD Attending Provider, Other Provide r Active Start: November 26, 2023 Team Status: Inactive Member Role Status Shmuel Cameron II MD Primary Care Provider Active Start: December 09, 2023 End: December 09, 2023 Hussein Talavera MD Attending Provider Active S tart: December 09, 2023 End: December 09, 2023 Team Status: Active Member Role Status Shmuel Cameron II MD Primary Care Provider Active Start: December 09, 2023 REED AlejandreC Attending Provider Active Start: December 09, 2023 Team Status: Inactive Member Role Status Shmuel Cameron II MD Primary Care Provider Active Start: December 09, 2023 End: December 09, 2023 Sameera Jolley NP-C Attending Provider Active Start: December 09, 2023 End: December 09, 2023 Team Status: Inactive Member Role Status Shmuel Cameron II MD Primary Care Provider Active Start: January 19, 2024 End: January 19, 2024 Tawanda Murdock MD Attending Provider Active Start: January 19, 2024 End: January 19, 2024 Team Status: Inactive Member Role Status Shmuel Cameron II MD Primary Care Provider Active Start: February 03, 2024 End: February 10, 2024 Frantz Weinstein DO Admit Provider Active Start: February 03, 2024 End: February 10, 2024 Mere Nelson MD Attending Provider Active Sta rt: February 03, 2024 End: February 10, 2024 Immanuel Burk DO Other Provider Active Start: February 03, 2024 End: February 10, 2024 Mikaela Torrez MD Other Provider Active Start: Noelle latham 2023 End: February 10, 2024 Titi Cuevas MD Other Provider Active Start: Apolinar lion 2023 End: February 10, 2024 Madelin Rivers APRN Other Provider Active St art: February 03, 2024 End: February 10, 2024 Naun Blank Jr, DO Other Provider Active S tart: February 03, 2024 End: February 10, 2024 Artis Ugarte MD Other Provider Active Start: February 03, 2024 End: February 10, 2024 Team Status: Active Member Role Status Dates Justo Cameron II MD Primary Care Provider Active Start: February 04, 2024 Frantz Weinstein DO Admit Provider Active Start: February 04, 2024 Mere Nelson MD Other Provider Active Start: February 04, 2024 Immanuel Burk , Attending Provider Active St art: February 04, 2024 Team Status: Active Member Role Status Dates Justo Cameron II MD Primary Care Provider Active Start: February 05, 2024 Frantz Weinstein , Admit Provider Active Start: February 05, 2024 Mere Nelson MD Other Provider Active Start: February 05, 2024 Immanuel Burk DO Other Provider Active Start: February 05, 2024 Mikaela Torrez MD Other Provider Active Start: Ju ly 2023 Titi Cuevas MD Other Provider Active Start: J amisha 2023 Madelin Rivers APRN Other Provider Active St art: February 05, 2024 Naun Blank Jr, DO Other Provider Active S tart: February 05, 2024 Artis Ugarte MD Attending Pr ovider, Other Provider Active Start: February 05, 2024 Team Status: Inactive Member Role Status Dates Sophia Woo MD Attending Provider Active Star t: March 25, 2024 End: March 25, 2024 Director Business Management Relationship Specialty Start Date End Date Justo Cameron MD [address] [facility] [address] [place] [address] PCP - General Internal Medicine 01/02/23 Director Business Management Relationship Specialty Start Date End Date Justo Cameron MD [address] [facility] [address] [place] [address] PCP - General Internal Medicine 01/02/23 Director Business Management Relationship Specialty Start Date End Date Justo Cameron MD [address] [facility] [address] [place] [address] PCP - General 01/16/23 Hussein Talavera MD [address] [place] [address] [place] [address] Referring Physician Vascular Surgery 10/06/23 Team Status: Inactive Member Role Status Dates Hussein Talavera MD Attending Provider Active S tart: May 03, 2024 End: May 03, 2024 Justo Cameron II MD Primary Care Provider Active Start: May 03, 2024 End: May 03, 2024 Team Status: Inactive Member Role Status Dates Sophia Woo MD Attending Provider Active Star t: May 05, 2024 End: May 05, 2024 Justo Cameron II MD Primary Care Provider Active Start: May 05, 2024 End: May 05, 2024 Director Business Management Relationship Specialty Start Date End Date Justo Cameron MD [address] [place] [address] [place] [address] PCP - General Internal Medicine 01/02/23 Director Business Management Relationship Specialty Start Date End Date Jutso Cameron MD [address] [place] [address] [place] [address] PCP - General Internal Medicine 01/02/23 Director Business Management Relationship Specialty Start Date End Date Justo Cameron MD [address] [place] [address] [place] [address] PCP - General Internal Medicine 01/02/23 Director Business Management Relationship Specialty Start Date End Date Justo Cameron MD [address] [place] [address] [place] [address] PCP - General Internal Medicine 01/02/23 Director Business Management Relationship Specialty Start Date End Date Justo Cameron MD [address] [place] [address] [place] [address] PCP - General Internal Medicine 01/02/23 Director Business Management Relationship Specialty Start Date End Date Justo Cameron MD [address] [place] [address] [place] [address] PCP - General Internal Medicine 01/02/23 Director Business Management Relationship Specialty Start Date End Date Justo Cameron MD [address] [place] [address] [place] [address] PCP - General Internal Medicine 01/02/23 Director Business Management Relationship Specialty Start Date End Date Justo Cameron MD [address] [place] [address] [place] [address] PCP - General Internal Medicine 01/02/23 Director Business Management Relationship Specialty Start Date End Date Justo Cameron MD [address] [place] [address] [place] [address] PCP - General Internal Medicine 01/02/23 Team Status: Active Member Role Status Dates Justo Cameron II MD Primary Care Provider Active Start: July 21, 2024 Sophia Woo MD Attending Provider Active Star t: July 21, 2024 Team Status: Inactive Member Role Status Dates Justo Cameron II MD Primary Care Provider Active Start: July 28, 2024 End: July 28, 2024 Sophia Woo MD Attending Provider Active Star t: July 28, 2024 End: July 28, 2024 Director Business Management Relationship Specialty Start Date End Date Justo Cameron MD [address] [place] [address] [place] [address] PCP - General Internal Medicine 01/02/23 Director Business Management Relationship Specialty Start Date End Date Justo Cameron MD [address] [place] [address] [place] [address] PCP - General Internal Medicine 01/02/23 Team Status: Inactive Member Role Status Dates Justo Cameron II MD Primary Care Provider Active Start: October 20, 2024 End: October 20, 2024 Sophia Woo MD Attending Provider Active Star t: October 20, 2024 End: October 20, 2024 Team Status: Inactive Member Role Status Dates Justo Cameron II MD Primary Care Provider Active Start: October 20, 2024 End: October 20, 2024 W Eamon Pro DO Attending Provider Active S tart: October 20, 2024 End: October 20, 2024 Team Status: Active Member Role Status Dates Justo Cameron II MD Primary Care Provider Active Start: October 20, 2024 Emilia Pro DO Other Provider Active Start : October 20, 2024 Chadd Junior MD Attending Provider Active Start: October 20, 2024 Director Business Management Relationship Specialty Start Date End Date Justo Cameron MD [address] [place] [address] [place] [address] PCP - General Internal Medicine 01/02/23 Director Business Management Relationship Specialty Start Date End Date Justo Cameron MD [address] [place] [address] [place] [address] PCP - General Internal Medicine 01/02/23 Director Business Management Relationship Specialty Start Date End Date Justo Cameron MD [address] [facility] [address] [place] [address] PCP - General Internal Medicine 01/02/23 Goals (unrecognized section and content) Goals may be documented in a n alternate sectionGoals may be documented in an alternate sectionNo InformationNo InformationNo InformationGoals may be documented in an alternate sectionGoals may be documented in an alternate sectionNo InformationNo InformationNo InformationNo InformationNo InformationNo InformationGoals may be documented in an alternate sectionGoals may be documented in an alternate sectionNo InformationGoals may be documented in an alternate sectionNo InformationGoals may be documented in an alternate sectionNo InformationNo InformationNo InformationGoals may be documented in an alternate sectionGoals may be documented in an alternate sectionGoals may be documented in an alternate sectionGoals may be documented in an alternate sectionGoals may be documented in an alternate sectionGoals may be documented in an alternate section REASON FOR VISIT (unrecogniz ed section and content) Reason Comments Medicare Annual Wellness Visit Subsequen t Reason Comments Dizziness Falls, med change Specialty Diagnoses / Procedures Referred By Contac t Referred To Contact Cardiology Diagnoses Dizziness Procedures Follow Up In Cardiology Tawanda Murdock MD [facility] 2, [address] [address] Referral ID Status Reason Start Date Expiration Date V isits Requested Visits Authorized [id number] Authorized 09/18/2023 09/17/2024 1 1 Reason Comments DM Foot Care Dm nail care Reason Comments Follow-up 6m Specialty Diagnoses / Procedures Referred By Contac t Referred To Contact Cardiology Diagnoses Dizziness Procedures Follow Up In Cardiology Yeison Farah, DIRECTOR [employer] [facility] 2, [address] [address] Tawanda Pro DO [facility] 2, [address] [address] Referral ID Status Reason Start Date Expiration Date V isits Requested Visits Authorized [id number] Authorized 10/06/2023 10/05/2024 1 1 Reason Comments Skin Check Reason Comments Follow-up Discharged from [facility] 02[facility]/24 to [facility] after left hip fracture pt [facility] 3 weeks agoPt has home health, PT,OT Diabetes Med Refill Omeprazole-- optum r x trouble sleeping Reason Comments Dizziness Reason Onset Date Comments re: CX of PT 08/09/2024 FU 08/13/2024 Final 08/19/2024 Reason Comments Medicare Annual Wellness Visit Subsequen t Reason Onset Date Comments PT Initial Eval 12/17/2024 FOR RECORDS PERTAINING TO PATIENTS WHO ARE OR HAVE BEEN ENROLLED IN A CHEMICAL DEPENDENCY/SUBSTANCEABUSE PROGRAM, SOME INFORMATION MAY BE OMITTED. This clinical summary was aggregated from multiple sources. Caution should be exercised in using it in the provision of clinical care. This summary normalizes information from multiple sources, and as a consequence, information in this document may materially change the coding, format and clinical context of patient data. In addition, data may be omitted in some cases. CLINICAL DECISIONS SHOULD BE BASED ON THE PRIMARY CLINICAL RECORDS. [facility] [employer] [facility]. provides no warranty or guarantee of the accuracy or completeness of information in this document.
--- OUTSIDE RECORDS SUMMARY | 2024-12-29 08:20 | XMS_ITS | Encounter Summary ---
Author Organization [facility] Address [address] [place] [address] Care Team Providers Care Student Services Advisor Name Role Phone Justo Cameron MD Primary Care Provider [phone] Encounter Details Date Type Department Care Team (Late st Contact Info) Description 12/17/2024 Telephone [facility] [address] [place] [id number] Justo Cameron MD [address] [place] [address] [place] [address] Social History Tobacco Use Types Packs/Day Years [...] on file documented as of this encounter Miscellaneous Notes * Telephone Encounter - Irma Hickman MA - 12/17/2024 12:09 PM EDT Faxed a referral to [facility] for pt * Telephone Encounter - Macarena Borges - 12/17/2024 11:46 AM EDT Daughter called stating Dr. Cameron had sent an order for PT to [facility]. She states her dad is just too weak to go out and is asking if they can get a PT order for Home Health or something like that for him? documented in this encounter Plan of Treatment Upcoming Encounters Date Type Department Care Team (Late st Contact Info) Description 01/10/2025 9:30 AM EDT Office Visit [facility] [address] [place] [address] Justo Cameron MD [address] [place] [address] [place] [address] 02/03/2025 11:40 AM EDT Office Visit [facility] [address] [place] [id number] Raffi West DPM [address] [facility] [address] [place], [place] [id number] 05/19/2025 10:45 AM EST Office Visit [facility] [address] [place] [address] Allison Foster MD [address] [place] [address] documented as of this encounter Visit Diagnoses Not on filedocumented in this encounter Care Teams Student Services Advisor Relationship Specialty Start Date End Date Justo Cameron MD [address] [place] [address] PCP - General Internal Medicine 01/02/23 documented as of this encounter
--- OUTSIDE RECORDS SUMMARY | 2024-12-29 08:20 | XMS_ITS | Encounter Summary ---
Author Organization [facility] Address [address] [place] [address] Care Team Providers Care Artillery Officer Name Role Phone Justo Cameron MD Primary Care Provider [phone] Encounter Details Date Type Department Care Team (Late Contact Info) Description 2023 Abstract [facility] D[facility] [address] [facility] [address]OB [address] [place] [phone] Allison Foster MD [address] [facility] [address] 350 [place] [address] Social History Tobacco Use Types Packs/Day Years Used Date Smoking Tobacco: Former Cigarettes Passive Smoke Exposure: Past Smokeless Tobacco: Never Alcohol Use Standard Drinks/Week Comments Yes 4 (1 standard drink = 0.6 oz pur e alcohol) caffeine: 3-4 cups per day Sex and Gender Information Value Date Recorded [...] FM [address] JACOB [address] [place] [address] Justo Cameron MD [address] Jacob 110 [place] [address] 02/03/2025 11:40 AM EDT Office Visit [facility]ODIATRY [address] [place] [address] Raffi West DPM 3006 [facility] 5 [place] [address] 05/19/2025 10:45 AM EST Office Visit [facility] T[facility] [address] [facility] 350 [place] [address] Allison Foster MD [address] [facility] 350 [place] [address] documented as of this encounter Visit Diagnoses Not on filedocumented in this encounter Care Teams Artillery Officer Relationship Specialty Start Date End Date Justo Cameron MD 112 [facility] 110 [place] [address] PCP - General Internal Medicine 01/02/23 documented as of this encounter
--- OUTSIDE RECORDS SUMMARY | 2024-12-29 08:20 | XMS_ITS | Encounter Summary ---
Author Organization [facility] Address [address] [facility] [place] [address] Care Team Providers Care Marketing Communication Manager Name Role Phone Justo Cameron MD Primary Care Provider [phone] Encounter Details Date Type Department Care Team (Late Contact Info) Description 02/04/2024 Abstract [facility] CI FM [address] [facility] 110 [place] [address] Justo Cameron MD [address] [facility] 110 [place] [address] Social History Tobacco Use Types Packs/Day Years [...] CI FM [address] [place] [address] Justo Cameron MD [address] [place] [address] 02/03/2025 11:40 AM EDT Office Visit [facility] [address] [place] [address] Raffi West DPM 3006 [facility] 5 [place] [address] 05/19/2025 10:45 AM EST Office Visit [facility] T[facility] [address] [facility] 350 [place] [address] Allison Foster MD [address] [facility] 350 [place] [address] documented as of this encounter Visit Diagnoses Not on filedocumented in this encounter Care Teams Marketing Communication Manager Relationship Specialty Start Date End Date Justo Cameron MD 112 [facility] 110 [place] [address] PCP - General Internal Medicine 01/02/23 documented as of this encounter
--- OUTSIDE RECORDS SUMMARY | 2024-12-29 08:20 | XMS_ITS | Encounter Summary ---
Author Organization [facility] Address [address] [facility] [place] [address] Care Team Providers Care Training Program Assistant Name Role Phone Justo Cameron MD Primary Care Provider [phone] Encounter Details Date Type Department Care Team (Late Contact Info) Description 01/08/2024 Abstract [facility] CI FM [address] [facility] 110 [place] [address] Justo Cameron MD [address] [facility] 110 [place] [address] Social History Tobacco Use Types Packs/Day Years [...] CI FM [address] [place] [address] Justo Cameron MD [address] [place] [address] 02/03/2025 11:40 AM EDT Office Visit [facility] [address] [place] [address] Raffi West DPM 3006 [facility] 5 [place] [address] 05/19/2025 10:45 AM EST Office Visit [facility] T[facility] ROS[facility] [address] [facility] 350 [place] [address] Allison Foster MD [address] [facility] 350 [place] [address] documented as of this encounter Visit Diagnoses Not on filedocumented in this encounter Care Teams Training Program Assistant Relationship Specialty Start Date End Date Justo Cameron MD 112 [facility] 110 [place] [address] PCP - General Internal Medicine 01/02/23 documented as of this encounter
--- OUTSIDE RECORDS SUMMARY | 2024-12-29 08:20 | XMS_ITS | Encounter Summary ---
Author Organization [facility] Address [address] [facility] [address] Care Team Providers Care Hr Consultant Name Role Phone Justo Cameron MD Primary Care Provider [phone] Encounter Details Date Type Department Care Team (Late Contact Info) Description 02/04/2024 Abstract [facility] CI FM [address] [facility] 110 [place] [address] Justo Cameron MD [address] [facility] 110 [place] [address] Social History Tobacco Use Types Packs/Day Years [...] CI FM [address] [place] [address] Justo Cameron MD [address] [place] [address] 02/03/2025 11:40 AM EDT Office Visit [facility] [address] [place] [address] Raffi West DPM 3006 [facility] 5 [place] [address] 05/19/2025 10:45 AM EST Office Visit [facility] T[facility] ROSS [address] [facility] 350 [place] [address] Allison Foster MD [address] [facility] 350 [place] [address] documented as of this encounter Visit Diagnoses Not on filedocumented in this encounter Care Teams Hr Consultant Relationship Specialty Start Date End Date Justo Cameron MD 112 [facility] 110 [place] [address] PCP - General Internal Medicine 01/02/23 documented as of this encounter
--- OUTSIDE RECORDS SUMMARY | 2024-12-29 08:20 | XMS_ITS | Encounter Summary ---
Author Organization [facility] Address [address] [facility] [place] [address] Care Team Providers Care Truck Farmer Name Role Phone Justo Cameron MD Primary Care Provider [phone] Encounter Details Date Type Department Care Team (Late Contact Info) Description 12/20/2024 Abstract [facility] CI FM [address] [facility] 110 [place] [address] Justo Cameron MD [address] [facility] 110 [place] [address] Social History Tobacco Use Types Packs/Day Years [...] CI FM [address] [place] [address] Justo Cameron MD [address] 110 [place] [address] 02/03/2025 11:40 AM EDT Office Visit [facility] [address] [place] [address] Raffi West DPM 3006 [facility] 5 [place] [address] 05/19/2025 10:45 AM EST Office Visit [facility] TOMY ROSS [address] [facility] 350 [place] [address] Allison Foster MD [address] [facility] 350 [place] [address] documented as of this encounter Visit Diagnoses Not on filedocumented in this encounter Care Teams Truck Farmer Relationship Specialty Start Date End Date Justo Cameron MD 112 [facility] 110 [place] [address] PCP - General Internal Medicine 01/02/23 documented as of this encounter
--- OUTSIDE RECORDS SUMMARY | 2024-12-29 08:20 | XMS_ITS | Encounter Summary ---
Author Organization [facility] Address [address] [facility] [place] [address] Care Team Providers Care Building Construction Supervisor Name Role Phone Justo Cameron MD Primary Care Provider [phone] Encounter Details Date Type Department Care Team (Late Contact Info) Description 12/20/2024 Abstract [facility] CI FM [address] [facility] 110 [place] [address] Justo Cameron MD [address] [facility] 110 [place] [address] Social History Tobacco Use Types Packs/Day Years [...] CI FM [address] [place] [address] Justo Cameron MD [address] [place] [address] 02/03/2025 11:40 AM EDT Office Visit [facility] [address] [place] [address] Raffi West DPM 3006 [facility] 5 [place] [address] 05/19/2025 10:45 AM EST Office Visit [facility] T[facility] ROSS [address] [facility] 350 [place] [address] Allison Foster MD [address] [facility] 350 [place] [address] documented as of this encounter Visit Diagnoses Not on filedocumented in this encounter Care Teams Building Construction Supervisor Relationship Specialty Start Date End Date Justo Cameron MD 112 [facility] 110 [place] [address] PCP - General Internal Medicine 01/02/23 documented as of this encounter
--- OUTSIDE RECORDS SUMMARY | 2024-12-29 08:20 | XMS_ITS | Encounter Summary ---
Author Organization [facility] Address [address] [place] [address] Care Team Providers Care Access Database Developer Name Role Phone Justo Cameron MD Primary Care Provider [phone] Encounter Details Date Type Department Care Team (Latest Contact Info) Description 12/16/2024 Travel Social History Tobacco Use Types Packs/Day Years [...] on file documented as of this encounter Functional Status * Over the [...] L PN documented as of this encounter Plan of Treatment Upcoming Encounters Date Type Department Care Team (Late st Contact Info) Description 01/10/2025 9:30 AM EDT Office Visit [facility] FM [address] [place]EVE 110 [place] [address] Justo Cameron MD [address] [facility] 110 [place] [address] 02/03/2025 11:40 AM EDT Office Visit [facility] POD[facility] [address] [place] [place] [address] Raffi West DPM 3006 [facility] 5 [place] [address] 05/19/2025 10:45 AM EST Office Visit [facility] DERM [address] [facility] 350 [place] [address] Allison Foster MD [address] [facility] 350 [place] [address] documented as of this encounter Visit Diagnoses Not on filedocumented in this encounter Care Teams Access Database Developer Relationship Specialty Start Date End Date Justo Cameron MD [address] [facility] 110 [place] [address] PCP - General Internal Medicine 01/02/23 documented as of this encounter
--- OUTSIDE RECORDS SUMMARY | 2024-12-29 08:20 | XMS_ITS | Encounter Summary ---
Author Organization [facility] Address [address] [facility] [place] [place] [address] Care Team Providers Care Prison Keeper Name Role Phone Justo Cameron MD Primary Care Provider [phone] Encounter Details Date Type Department Care Team (Late Contact Info) Description 12/20/2024 Abstract [facility] CI FM [address] [facility] 110 [place] [address] Justo Cameron MD [address] [facility] 110 [place] [address] Social History Tobacco Use Types Packs/Day Years [...] CI FM [address] [place] [address] Justo Cameron MD [address] 110 [place] [address] 02/03/2025 11:40 AM EDT Office Visit [facility] [address] [place] [address] Raffi West DPM 3006 [facility] 5 [place] [address] 05/19/2025 10:45 AM EST Office Visit [facility] TOMY ROSS [address] [facility] 350 [place] [address] Allison Foster MD [address] [facility] 350 [place] [address] documented as of this encounter Visit Diagnoses Not on filedocumented in this encounter Care Teams Prison Keeper Relationship Specialty Start Date End Date Justo Cameron MD 112 [facility] 110 [place] [address] PCP - General Internal Medicine 01/02/23 documented as of this encounter
--- OUTSIDE RECORDS SUMMARY | 2024-12-29 08:20 | XMS_ITS | Clinical Summary ---
Author Organization [facility] Address [address] [place] [address] Care Team Providers Care Lead Presser Name Role Phone Justo Cameron MD Primary Care Provider [phone] Allergies Active Allergy Reactions Criticality Noted Date Comments Karsten Inhibitors Other 05/30/2023 Levofloxacin Rash Low 01/02/2023 Penicillins Rash Low 07/01/2014 Medications amiodarone (Pacerone) 200 MG tablet Take 1 tablet by mouth in the morning. Active aspirin 81 MG EC tablet Take 81 mg by mouth in the morning. Active furosemide (Lasix) 40 MG tablet Take 40 mg by mouth in the morning and 40 mg before bedtime. Active omeprazole (PriLOSEC) [address] capsuleIndications :Gastroesophageal reflux disease, unspecified whether esophagitis present Take one capsule daily 100 capsule 3 4 Active metoprolol succinate XL (Toprol-XL) 50 MG 24 hr tablet Take 50 mg by mouth Daily Do not crush or chew. 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 Take 1 tablet (80 mg) by mouth Daily 100 tablet 3 4 025 Active glyBURIDE (Diabeta) 1.25 MG tabletIndications: Type 2 diabetes mellitus with stage 4 chronic kidney disease, without long-term current use of insulin (HCC) TAKE 1 TABLET BY MOUTH IN THE MORNING WITH MEALS 90 tablet 3 5 Active clopidogrel (Plavix) 75 MG tabletIndications: 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 TAKE 1 TABLET BY MOUTH DAILY 90 tablet 3 5 Active levothyroxine (Synthroid, Levoxyl) 100 MCG tabletIndications: Acquired hypothyroidism TAKE 1 TABLET BY MOUTH IN THE MORNING TAKE BEFORE A MEAL 90 tablet 3 5 Active Lancets Ultra Thin miscIndications:Ty pe 2 diabetes mellitus without complication, without long-term current use of insulin ([facility]) 1 each Daily 100 each 2 5 Active doxepin (Silenor) 3 MG tabletIndications: Primary insomnia Take 1 tablet (3 mg) by mouth at bedtime 30 tablet 3 5 Active Lancets Ultra Thin miscIndications:Ty pe 2 diabetes mellitus without complication, without long-term current use of insulin ([facility]) 1 each in the morning. 100 each 2 3 025 Discontinu ed(Reorder ) traMADol (Ultram) 50 MG tabletIndications: Chronic hip pain, left,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 Take 1-2 tablets (50-100 mg) by mouth every 8 (eight) hours if needed for severe pain for up to 7 days 42 tablet 5 025 Active Problems Problem Noted Date Diagnosed Date Acquired hypothyroidism 12/16/2024 Cauda equina syndrome 12/16/2024 Diabetic nephropathy associa mario with type 2 diabetes mellitus 03/24/2024 Diastolic congestive heart failure 08/21/2023 GERD (gastroesophageal reflux disease) Mixed hyperlipidemia 08/21/2023 Atherosclerosis of aorta (I70.0) 08/21/2023 Peripheral vascular disease, unspecified (I73.9) 08/21/2023 Benign essential hypertension 05/30/2023 Cardiac pacemaker in situ 05/30/2023 Carotid stenosis 05/30/2023 History of PTCA 05/30/2023 S/P CABG (coronary artery bypass graft) 05/30/20 23 Stage 4 chronic kidney disease 05/30/2023 Coronary arteriosclerosis in hopi artery 02/01 Benign prostatic hyperplasia without lower urinary tract symptoms 02/01/2011 Chronic obstructive pulmonary disease (COPD) Degeneration of lumbar or lumbosacral interverte bral disc 02/01/2011 Diverticulosis of colon 02/01/2011 Generalized osteoarthrosis, involving multiple s ites 02/01/2011 Hiatal hernia 02/01/2011 Encounters Date Type Department Care Team Description 12/20/2024 Abstract [facility] FM [address] [place] [address] Justo Cameron MD 12/20/2024 Abstract [facility] FM [address] [place] [address] Justo Cameron MD 12/20/2024 Abstract [facility] CI FM [address] [place] [address] Justo Cameron MD 12/17/2024 Telephone [facility] CI FM [address] [facility] 100 [place] [address] Justo Cameron MD 12/17/2024 Telephone [facility] CI PT [address] [place] [address] Davidson Conroy, PT PT Initial Eval 12/16/2024 10:00 AM EDT Office Visit [facility] CI FM [address] [place] [address] Justo Cameron MD Routine general medical examination at health care facility (Primary Dx); ACP (advance care planning); Type 2 diabetes mellitus with stage 4 chronic kidney disease, without long-term current use of insulin (HCC); Chronic kidney disease, stage 4 (severe) (HCC); Weight loss; 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; Mixed hyperlipidemia ; Acquired hypothyroidism ; Primary insomnia 12/16/2024 Bamboo flowsheet [facility] CI FM [address] [place] [address] Justo Cameron MD 12/16/2024 Travel 11/25/2024 11:30 AM EDT Office Visit [facility] [address] [place] [address] Raffi West DPM Skin fissure (Primary Dx); Diabetes mellitus due to underlying condition with diabetic polyneuropathy, with long-term current use of insulin ([facility]); Pain due to onychomycosis of toenails of both feet; Venous insufficiency 11/25/2024 Bamboo flowsheet [facility] POD[facility] 112 [facility] 120 [place] [address] Raffi West DPM 11/25/2024 Travel 11/23/2024 Refill [facility] CI FM 112 [facility] 110 [place] [address] Justo Cameron MD Chronic hip pain, left; 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; Type 2 diabetes mellitus without complication, without long-term current use of insulin ([facility]) 11/15/2024 Refill [facility] CI FM 112 [facility] [address] [place] [address] Justo Cameron MD Type 2 diabetes mellitus with stage 4 chronic kidney disease, without long-term current use of insulin ([facility]); 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 (I25.118); Acquired hypothyroidism 10/27/2024 Abstract [facility] CI FM 112 [facility] 110 [place] [address] Justo Cameron MD 10/21/2024 Abstract [facility] CI FM 112 [facility] 110 [place] [address] Justo Cameron MD from Last 3 Months Family History Medical History Relation Name Comments Diabetes Father Hypertension Father Irritable bowel syndrome Father Stroke Paternal Grandfather Diabetes Paternal Grandmother Melanoma Neg Hx Relation Name Status Comments Father Mother Paternal Grandfather Paternal Grandmother Social History Tobacco Use Types Packs/Day Years Used Date Smoking Tobacco: Former Cigarettes Q uit: 1983 Passive Smoke Exposure: Past Smokeless Tobacco: Never Tobacco Cessation:Counseling Given: Yes Alcohol Use Standard Drinks/Week Comments Yes 4 [...] AM EDT Temperature - - Respiratory Rate 16 11/25/2024 11:20 AM EDT Oxygen Saturation 98% 12/16/2024 10:05 AM EDT Inhaled Oxygen Concentration - - Weight 81.2 kg (179 lb) 12/16/2024 10:05 AM EDT Height 180.3 cm (5' 11 ) 12/16/2024 10:05 AM EDT Body Mass Index 24.97 12/16/2024 10:05 AM EDT Plan of Treatment Upcoming Encounters Date Type Department Care Team (Late st Contact Info) Description 01/10/2025 9:30 AM EDT Office Visit [facility] CI FM [address] [facility] 110 [place] [address] Justo Cameron MD [address] [facility] 110 [place] [address] 02/03/2025 11:40 AM EDT Office Visit [facility] [address] [facility] 120 [place] [address] Raffi West, DPBhavana 3006 [facility] 5 [place] [address] 05/19/2025 10:45 AM EST Office Visit [facility] DERM [address] [facility] 350 [place] [address] Allison Foster MD [address] [facility] 350 [place] [address] Health Maintenance Due Date Last Done Comments Pneumococcal Vaccine: 65+ Ye ars (1 of 2 - PCV) [birth year]25/1959 Diabetes: Retinopathy Screening 07/24/2019 8 Influenza Vaccine (Season Ended) 2025 Diabetes: Hemoglobin A1C 03/18/2025 025, 03/24/2024, 08/21/2023, Additional history exists Diabetes: Urine Protein Screening 07/21/2025 025 Procedures Procedure Name Priority Date/Time Associated Diagnosis Comments POCT GLYCATED HEMOGLOBIN, TOTAL Routine 12/16/2024 11:02 AM EDT Type 2 diabetes mellitus with stage 4 chronic kidney disease, without long-term current use of insulin (HCC) COLOR FUNDUS PHOTOGRAPHY - OU - BOTH EYES Routine 07/24/2017 12:00 PM EST from Last 3 Months or Most Recently Relevant to Health Maintenance Results * POCT Glycated hemoglobin, total (12/16/2024 11:02 AM EDT) Hemoglobin A1C 5.5 Blood 12/16/2024 11:0 2 AM EDT us Justo Cameron MD POINT OF CARE TEST ENTER/EDIT ORDERABLES Final Result * Color Fundus Photography - OU - Both Eyes (07/24/2017 12:00 PM EST) Anatomical Region Laterality Modality Head Fundus Photograp hy 07/24/2017 12:0 0 PM EST Narrative 07/24/2017 12:00 PM EST PERFORMED AT [facility] LOCATION:[id number] NO retinopathy Procedure Note CONVERSION, GENERIC - 11/27/2022 PERFORMED AT [facility] LOCATION:[id number] NO retinopathy us Justo Cameron MD OPHTH PHOTOGRAPHY Final Result from Last 3 Months or Most Recently Relevant to Health Maintenance Insurance [employer] MED[employer]ARE Care Teams Lead Presser Relationship Specialty Start Date End Date Justo Cameron MD 112 [facility] 110 [place] [address] PCP - General Internal Medicine 01/02/23
--- OUTSIDE RECORDS SUMMARY | 2024-12-29 08:20 | XMS_ITS | Encounter Summary ---
Author Organization [facility] Address [address] [facility] [place] [address] Care Team Providers Care Screedman/Laborer Name Role Phone Justo Cameron MD Primary Care Provider [phone] Reason for Visit * Reason Onset Date Comments PT Initial Eval 12/17/2024 Encounter Details Date Type Department Care Team (Late st Contact Info) Description 12/17/2024 Telephone [facility] PT [address] [facility] 170 [place] [address] Davidson Conroy, PT [address] [facility] 170 [place] [address] PT Initial Eval Social History Tobacco Use Types Packs/Day Years [...] encounter Miscellaneous Notes * Telephone Encounter - Liz Cuenca - 12/17/2024 11:19 AM EDT She called re: PT Eval and said she was going to contact ref provider in request of sending referral for Home Health; she notes he is to weak to get out of house. I told her not to hesitate if we may be needed. documented in this encounter Plan of Treatment Upcoming Encounters Date Type Department Care Team (Late st Contact Info) Description 01/10/2025 9:30 AM EDT Office Visit [facility] CI FM [address] [place] [address] Justo Cameron MD [address] [place] [address] 02/03/2025 11:40 AM EDT Office Visit [facility] PODIATRY [address] [place] [address] Raffi West DPM 3006 [facility] 5 [place] [address] 05/19/2025 10:45 AM EST Office Visit [facility] DERM [address] [place] [address] Allison Foster MD [address] [place] [address] documented as of this encounter Visit Diagnoses Not on filedocumented in this encounter Care Teams Screedman/Laborer Relationship Specialty Start Date End Date Justo Cameron MD [address] [place] [address] PCP - General Internal Medicine 01/02/23 documented as of this encounter
--- OUTSIDE RECORDS SUMMARY | 2024-12-29 08:20 | XMS_ITS | Encounter Summary ---
Author Organization [facility] Address [address] [facility] [place] [address] Care Team Providers Care Industrial Safety And Health Technician Name Role Phone Justo Cameron MD Primary Care Provider [phone] Encounter Details Date Type Department Care Team (Late st Contact Info) Description 12/16/2024 Bamboo flowsheet [facility] [address] [place] [id number] Justo Cameron MD [address] [place] [address] Social History Tobacco Use Types Packs/Day Years [...] things Not at all 12/16/2024 10:00 AM Hien Poole L PN Feeling down, depressed, or hopeless [...] [address] [place] [address] Justo Cameron MD [address] [place] [address] 02/03/2025 11:40 AM EDT Office Visit [facility] [address] [place] [address] Raffi West DPM [address] [facility] [address] [place], [place] [id number] 05/19/2025 10:45 AM EST Office Visit [facility] [address] [place] [address] Allison Foster MD [address] [place], [place] [id number] documented as of this encounter Visit Diagnoses Not on filedocumented in this encounter Care Teams Industrial Safety And Health Technician Relationship Specialty Start Date End Date Justo Cameron MD [address] [place] [address] PCP - General Internal Medicine 01/02/23 documented as of this encounter
--- OUTSIDE RECORDS SUMMARY | 2024-12-29 08:21 | XMS_ITS | Encounter Summary ---
Author Organization [facility] Address [address] [place] [address] Phone Care Team Providers Care Casserole Preparer Name Role Phone Justo Cameron MD Primary Care Provider [phone] Hussein Talavera MD Unavailable Unavail able Encounter Details Date Type Department Care Team (Late st Contact Info) Description 09/02/2023 Scanned Document [facility] [address] [place] [address] Scanning, Generic Provider Social History Tobacco Use [...] Description 03/15/2025 10:30 AM EDT Office Visit [facility] [address] [place] [address] Tawanda Pro DO [address] [facility] [address] [place] [address] Scheduled Orders Name Type Priority Associated Diagnoses Orde r Schedule PULMONARY FUNCTION TESTING PFT Ordered: 09/02/2023 documented as of this encounter Procedures Procedure Name Priority Date/Time Associated Diagnosis Comments OUTSIDE IMAGING SCAN 09/02/2023 documented in this encounter Results * OUTSIDE IMAGING SCAN (09/02/2023) Anatomical Region Laterality Modality Other Narrative 09/02/2023 Ordered by an unspecified provider. us Generic Provider Scanning OUTSIDE SCAN Final Result documented in this encounter Visit Diagnoses Not on filedocumented in this encounter Care Teams Casserole Preparer Relationship Specialty Start Date End Date Justo Cameron MD [address] [facility] [address] [place] [address] PCP - General 01/16/23 Hussein Talavera MD [address] [facility] 110 [place] [address] Referring Physician Vascular Surgery 10/06/23 documented as of this encounter
--- OUTSIDE RECORDS SUMMARY | 2024-12-29 08:21 | XMS_ITS | Encounter Summary ---
Author Organization [facility] Address [address] [place] [address] Phone Care Team Providers Care Roof Cement And Paint Maker Helper Name Role Phone Justo Cameron MD Primary Care Provider [phone] Hussein Talavera MD Unavailable Unavail able Encounter Details Date Type Department Care Team (Late st Contact Info) Description 09/17/2023 Scanned Document [facility] [address] [place] [address] Scanning, Generic Provider Social History Tobacco Use [...] Description 03/15/2025 10:30 AM EDT Office Visit [facility] [address] [place] [address] Tawanda Pro DO [address] [place] [address] documented as of this encounter Visit Diagnoses Not on filedocumented in this encounter Care Teams Roof Cement And Paint Maker Helper Relationship Specialty Start Date End Date Justo Cameron MD [address] [place] [address] PCP - General 01/16/23 Hussein Talavera MD [address] [facility] 110 [place] [address] Referring Physician Vascular Surgery 10/06/23 documented as of this encounter
--- OUTSIDE RECORDS SUMMARY | 2024-12-29 08:21 | XMS_ITS | Encounter Summary ---
Author Organization [facility] Address [address] [place] [address] Phone Care Team Providers Care Cuprous Chloride Helper Name Role Phone Justo Cameron MD Primary Care Provider [phone] Hussein Talavera MD Unavailable Unavail able Encounter Details Date Type Department Care Team (Late st Contact Info) Description 02/04/2024 Scanned Document [facility] [address] [place] [address] Scanning, Generic Provider Social History Tobacco Use [...] Description 03/15/2025 10:30 AM EDT Office Visit [facility] [address] [facility] [address] [place] [address] Tawanda Pro DO [address] [facility] [address] [place], [place] [id number] documented as of this encounter Procedures Procedure Name Priority Date/Time Associated Diagnosis Comments ECHOCARDIOGRAM 02/04/2024 documented in this encounter Results * Echocardiogram (02/04/2024) Narrative 02/04/2024 Ordered by an unspecified provider. us Generic Provider Scanning CV ECHO PROCEDURES Fin al Result documented in this encounter Visit Diagnoses Not on filedocumented in this encounter Additional Health Concerns Assessment Noted Time A fall risk assessment has been complete d for the patient 10/06/2023 9:12 AM EDT documented as of this encounter Care Teams Cuprous Chloride Helper Relationship Specialty Start Date End Date Justo Cameron MD 112 [facility] 110 [place] [address] PCP - General 01/16/23 Hussein Talavera MD [address] [address] Referring Physician Vascular Surgery 10/06/23 documented as of this encounter
--- OUTSIDE RECORDS SUMMARY | 2024-12-29 08:21 | XMS_ITS | Encounter Summary ---
Author Organization [facility] Address [address] [place] [address] Phone Care Team Providers Care Node Js Developer Name Role Phone Justo Cameron MD Primary Care Provider [phone] Hussein Talavera MD Unavailable Unavail able Encounter Details Date Type Department Care Team (Late st Contact Info) Description 12/09/2023 Scanned Document [facility] [address] [place] [address] Scanning, Generic Provider Social History Tobacco Use [...] Description 03/15/2025 10:30 AM EDT Office Visit [facility] [address] [facility] [address] [place] [address] Tawanda Pro DO [address] [facility] [address], [address] [place], [place] [phone] Scheduled Orders Name Type Priority Associated Diagnoses Orde r Schedule Ultrasound- On[facility] Scan Imaging O rdered: 12/09/2023 documented as of this encounter Visit Diagnoses Not on filedocumented in this encounter Additional Health Concerns Assessment Noted Time A fall risk assessment has been complete d for the patient 10/06/2023 9:12 AM EDT documented as of this encounter Care Teams Node Js Developer Relationship Specialty Start Date End Date Justo Cameron MD 112 [facility] 110 [place] [address] PCP - General 01/16/23 Hussein Talavera MD 112 [facility] 110 [place] [address] Referring Physician Vascular Surgery 10/06/23 documented as of this encounter
--- OUTSIDE RECORDS SUMMARY | 2024-12-29 08:21 | XMS_ITS | Encounter Summary ---
Author Organization [facility] Address [address] [place] [address] Phone Care Team Providers Care Environmental Sampler Name Role Phone Justo Cameron MD Primary Care Provider [phone] Hussein Talavera MD Unavailable Unavail able Encounter Details Date Type Department Care Team (Late st Contact Info) Description 03/25/2024 Scanned Document [facility] [address] [place] [address] Scanning, Generic Provider Social History Tobacco Use [...] Description 03/15/2025 10:30 AM EDT Office Visit [facility] [address] [facility] [address] [place] [address] Tawanda Pro DO 703 [facility] [address] [place], [place] [phone] documented as of this encounter Visit Diagnoses Not on filedocumented in this encounter Additional Health Concerns Assessment Noted Time A fall risk assessment has been complete d for the patient 10/06/2023 9:12 AM EDT documented as of this encounter Care Teams Environmental Sampler Relationship Specialty Start Date End Date Justo Cameron MD 112 [facility] 110 [place] [address] PCP - General 01/16/23 Hussein Talavera MD [address] [facility] 110 [place] [address] Referring Physician Vascular Surgery 10/06/23 documented as of this encounter
--- NOTE | 2024-12-29 08:45 | XR_ITS ---
The [address] [address] Patient Name: Apolinar MELTON MRN: [id number] date: 1940 Sex: M Assigned Patient Location: LAB Current Patient Location: LAB Accession/Order Number: [id number] Exam Date: 12/29/2024 09:36 Report Date: 12/29/2024 09:38 At the request of: HONEY MANCUSO Procedure: XR lumbar spine 2-3V LUMBAR SPINE - 3 views COMPARISON: None CLINICAL DATA: Chronic low back pain with recent worsening. No reported injury. AP as well as lateral lumbar and lumbosacral views were obtained. There is osteopenia. No acute compression fractures or displacement are noted. The disc spaces are maintained. There is minor endplate spurring. There is moderate lower lumbar facet hypertrophy. The SI joints are intact and show mild sclerosis. There is extensive atherosclerotic disease involving an ectatic aorta and its branches. No other paraspinal soft tissue abnormalities are seen. XR/XR lumbar spine 2-3V IMPRESSION: OSTEOPENIA AND DEGENERATIVE CHANGES. NO OBVIOUS ACUTE BONY FINDINGS. Impression dictated by: Heather Valera M.D. 12/29/2024 9:38 AM Dictation Location: [place] [address] Electronically authenticated by: [id number] Y Date: 12/29/2024 09:38
[2024-12-29 09:30] LABS: Alanine Aminotransferase 55 U/L (16-63); Albumin Globulin Ratio 0.9; Albumin Level 2.8 g/dL (3.4-5.0); Alkaline Phosphatase 76 U/L (46-116); Anion Gap 15.7; Aspartate Amino Transferase 35 U/L (15-37); BUN Creatinine Ratio 14.3; Bilirubin Total 0.8 mg/dL (0.2-1.0); Calcium 8.3 mg/dL (8.5-10.1); Carbon Dioxide 25.4 mmol/L (21.0-32.0); Chloride 103 mmol/L (98-107); Chol HDL Ratio 2.9; Cholesterol 134 mg/dL (<=200); Estimated GFR (African America 22 (>=60 mL/min/1.73m^2); Estimated GFR (Non-African Ame 19 (>=60 mL/min/1.73m^2); Globulin 3.2 g/dL; Glucose 113 mg/dL (74-106); HDL Cholesterol 46 mg/dL (40-60); LDL Cholesterol Calculated 63.4 mg/dL; Potassium 4.1 mmol/L (3.5-5.1); Sodium 140 mmol/L (136-145); Thyroid Stimulating Hormone 3.823 uIU/mL (0.358-3.740); Triglycerides 123 mg/dL (<=150); VLDL CHOLESTEROL 24.6 mg/dL
[2024-12-29 09:51] LABS: Free T4 1.41 ng/dL (0.76-1.46)
== END 2024-12-29 08:11 | disposition home or self-care (01) ==
LOC: LAB 08:13
PROVIDERS: PCP Internal Medicine; Visit Provider Internal Medicine
DX: M51.372 Other intervertebral disc degeneration, lumbosacral region with discogenic back pain and lower extremity pain (principal); E11.22 Type 2 diabetes mellitus with diabetic chronic kidney disease; N18.4 Chronic kidney disease, stage 4 (severe); E78.2 Mixed hyperlipidemia; E03.9 Hypothyroidism, unspecified; M85.88 Other specified disorders of bone density and structure, other site
CPT/HCPCS: 36415; 72100; 80053; 80061; 84439; 84443